=== PATIENT | male | born 1950 | race African-American/Black ===

== ENCOUNTER 2023-11-21 08:46 | Outpatient (OUT) | payer MEDICARE, MEDICAID, SELFPAY ==
--- NOTE | 2023-11-21 09:04 | XR_ITS ---
The [address] [address] Patient Name: DON SHULTZ MRN: [id number] date: 1950 Sex: M Assigned Patient Location: [facility] Current Patient Location: [facility] Accession/Order Number: [id number] Exam Date: 11/21/2023 10:20 Report Date: 11/21/2023 10:35 At the request of: ROSHAN NAVARRO Procedure: XR chest 2V EXAM: XR chest 2V HISTORY: Preop exam COMPARISON: None. TECHNIQUE: PA and lateral views of the chest. FINDINGS: The cardiomediastinal silhouette is enlarged. Interstitial opacity. There is no pneumothorax. No pleural effusion is noted. The osseous structures are intact. XR/XR chest 2V IMPRESSION: Cardiomegaly with congestion. Electronically authenticated by: ARTHUR ROMAN Date: 11/21/2023 10:35
[2023-11-21 09:27] LABS: Basophils Percent Auto 0.4 % (0.2-2.0); Eosinophils Absolute Auto 0.2 10^3/uL (0.0-0.7); Eosinophils Percent Auto 3.4 % (0.9-7.0); Hematocrit 38.8 % (42.0-54.0); Hemoglobin 12.8 g/dL (14.0-18.0); Immature Granulocytes Abs Auto 0.02 10^3/uL (0.00-0.03); Immature Granulocytes Pct Auto 0.3 % (0.0-0.5); Lymphocytes Absolute Auto 1.5 10^3/uL (1.2-3.8); Lymphocytes Percent Auto 21.7 % (20.5-60.0); Mean Corpuscular Hemoglobin 29.2 pg (25.9-34.0); Mean Corpuscular Volume 88.6 fL (80.0-94.0); Mean Platelet Volume 8.5 fL (9.5-13.5); Monocytes Absolute Auto 0.7 10^3/uL (0.3-0.8); Monocytes Percent Auto 9.9 % (1.7-12.0); Neutrophils Absolute Auto 4.3 10^3/uL (1.4-6.5); Neutrophils Percent Auto 64.3 % (43.0-75.0); Platelet Count 236 10^3/uL (150-450); Red Blood Count 4.38 10^6/uL (4.70-6.10); Red Cell Distribution Width 12.8 % (11.0-15.0); White Blood Count 6.7 10^3/uL (4.0-11.0)
[2023-11-21 09:42] LABS: Anion Gap 10.5; BUN Creatinine Ratio 10.4; Carbon Dioxide 28.7 mmol/L (21.0-32.0); Chloride 105 mmol/L (98-107); Estimated GFR (African America >60 (>=60); Estimated GFR (Non-African Ame 52 (>=60); Glucose 72 mg/dL (74-106); Potassium 4.2 mmol/L (3.5-5.1); Sodium 140 mmol/L (136-145)
[2023-11-21 09:46] LABS: Alanine Aminotransferase 33 U/L (16-63); Albumin Globulin Ratio 0.8; Albumin Level 3.1 g/dL (3.4-5.0); Alkaline Phosphatase 133 U/L (46-116); Aspartate Amino Transferase 26 U/L (15-37); Bilirubin Direct 0.1 mg/dL (0.0-0.2); Bilirubin Total 0.3 mg/dL (0.2-1.0); Total Protein 7.1 g/dL (6.4-8.2)
[2023-11-21 10:38] LABS: Partial Thromboplastin Time 25.9 sec (22.3-36.2); Prothrombin Time 10.6 sec (9.0-11.6)
== END 2023-11-21 08:47 | disposition home or self-care (01) ==
PROVIDERS: Visit Provider Urology
DX: Z01.810 Encounter for preprocedural cardiovascular examination (principal); Z01.812 Encounter for preprocedural laboratory examination; N40.0 Benign prostatic hyperplasia without lower urinary tract symptoms; I51.7 Cardiomegaly
CPT/HCPCS: 71046; 80048; 80076; 85025; 85610; 85730

== ENCOUNTER 2023-12-11 13:16 | Day surgery (SDC) | payer MEDICARE, MEDICAID, SELFPAY ==
[2023-11-21 09:53] VITALS: BP 131/87; PULSE 78; RESP 20; TEMP 36.3; O2SAT 97; BMI 32.3
[2023-12-11] VITALS (11 sets, daily range): BP systolic 123–165; BP diastolic 58–106; PULSE 72–97; RESP 12–100; TEMP 36.3–36.8; O2SAT 91–100; BMI 32.3
--- OUTSIDE RECORDS SUMMARY | 2023-12-11 13:25 | XMS_ITS | CCD ---
Author Name Unknown Address [address] [place] [address] Organization [facility] Care Team Providers Care Bull Driver Name Role Phone None, No PCP Unavailable Unavailable Unavailable Unavailable Isidro Greenfield(Historical) Unavailable Conchis Beckwith DO Unavailable Conchis Beckwith DO Primary Care Provider [facility]IS [facility]ECKWITH [facility] [phone] DO Rommel Mcgowan Emergency Provider [phone] Al Valerie Avila MD Hani Admit Provider MD Cristiano Fagan Other Provider SANJU Duran Other Provider [phone] MD Dimitry Tyler Attending Provider [phone] MD Tae Marc Emergency Provider [phone] DONTAE Harding- Vanita Zacarias Emergency Provider DO Conchis Beckwith Other Provider [phone] DO Slava Solomon Attending Provider DO Luiz Pandya Emergency Provider [phone] DO Wood Moeller Attending Provider [phone] DO Ken Brush Referring Provider DO Ken Brush Attending Provider DO Low Castellano [facility] SANJU Cuba (WND) Attending Provider DIRK Matute Emergency Provider [phone] Conchis Beckwith DO Unavailable Conchis Beckwith DO Primary Care Provider SHANNAN Alvarado Attending Provider MELLISA, EMAD W Admitting Unavailable MELLISA, EMAD W Attending Unavailable CONCHIS BECKWITH Primary Care Unavailable MELLISA, EMAD W Admitting Unavailable MELLISA, EMAD W Attending Unavailable CONCHIS BECKWITH Primary Care Unavailable KARISSA, SAMEH RIZKAL Attending Unavailable CONCHIS BECKWITH Primary Care Unavailable KARISSA, SAMEH RIZKAL Admitting Unavailable Isidro Greenfield(Historical) Unavailable [phone] Conchis Beckwith DO Unavailable Tang CURRY Conchis Primary Care Provider [facility] Primary Care Provider MD Tae Marc Emergency Provider Mehdi [facility] Vanita E Emergency Provider SANJU Hauser Attending Provider [phone] DO Rommel Mcgowan Emergency Provider [facility] Primary Care Provider SANJU Hauser Attending Provider Slava, DO Solomon Attending Provider [phone] DO Ken Brush Referring Provider Tang CURRY Conchis Unavailable [phone] Tang CURRY Conchis Primary Care Provider [facility] Primary Care Provider Mehdi [facility] Vanita E Emergency Provider [phone] DO Rommel Mcgowan Emergency Provider Mast, DO Solomon Attending Provider DO Ken Brush Referring Provider SHANNAN Alvarado Attending Provider SANJU Hauser (WND) Attending Provider [facility] Primary Care Provider [phone] MD Joselito Webb Attending Provider Isidro Greenfield(Historical) Unavailable Conchis Beckwith DO Unavailable Conchis Beckwith DO Primary Care Provider [facility] Primary Care Provider [phone] DO Rommel Mcgowan Emergency Provider [phone] WILLARD AGUIRRE Primary Care Physician [facility] Primary Care Provider [phone] MD Joselito Webb Attending Provider [phone] SANJU Hauser (WND) Attending Provider DO Gold Miller Attending Provider SHANNAN Feliciano Emergency Provider [phone] Merchant CHARLES [facility] Primary Care Provider [facility] Primary Care Provider MD Tae Salazar Attending Unavailable MD Tae Salazar Admitting Unavailable Tae Salazar Primary Care Unavailable [facility] Primary Care Provider DO Steven Mcmillan Attending Provider [phone] Conchis Beckwith DO Primary Care Provider [facility] YASIR Primary Care Unavailable Leroy MANCERA Attending Unavailable MERCHANT, YASIR Primary Care Unavailable Leroy MANCERA Attending Unavailable JOYCE GOMEZ Consulting UnavailCONCHIS Kaplan Primary Care Unavailable Leroy MANCERA Admitting Unavailable Leroy MANCERA Attending Unavailable MERCHANT, YASIR Primary Care Unavailable NENA DIAZ Referring Unavailable TANG CONCHIS Primary Care Unavailable SAVANA BARAJAS (OCEANOGRAPHIC METEOROLOGIST) Referring Unavailable Leroy MANCERA Attending Unavailable DO Rafael Broussard Emergency Provider [phone] MD Georgi Vargas Admit Provider [phone] MD Georgi Vargas Attending Provider MD Eryn Sands Attending Provider MD Alonso Pina Other Provider [phone] Dr. Sandeep Mendez Attending Unava ilable UNKNOWN, PCP Primary Care Unavailable BRENDA CHARLES Attending Unavailable ARACELIBRENDA Referring Unavailable MERCHANT, YASIR Primary Care Unavailable Leroy MANCERA Referring Unavailable MERCHANT, YASIR Primary Care Unavailable BRENDA CHARLES Attending Unavailable LOUDENSLAJOSE KIM Referring Unavaila ble TANG, CONCHIS Primary Care Unavailable LOUDENSLAGER, JOSE S Attending Unavaila ble MERCHANT, YASIR Primary Care Unavailable LOUDENSLAGER, JOSE S Attending Unavaila ble LEX, ANA LUISA Referring Unavailable MERCHANT, YASIR Primary Care Unavailable LEXRAPHAEL LUAEE Attending Unavailable ARACELI, BRENDA L Referring Unavailable MERCHANT, YASIR Primary Care Unavailable [facility] Primary Care Provider DO Rafael Broussard Emergency Provider MD Georgi Vargas Admit Provider MD Eryn Sands Attending Provider MD Alonso Pina Other Provider DO Conchis Beckwith Referring Provider [phone] DO Wood Moeller Attending Provider [facility] Primary Care Provider DO Low Castellano Emergency Provider Juneva DO Conchis Ramirez Attending Provider [phone] Daniel JURADO Referring Unavailable Daniel JURADO Attending Unavailable MERCHANT, WILLARD Primary Care Unavailable Luiz NAVARRO Attending Unavailable MERCHANT, WILLARD Primary Care Unavailable MERCHANT, WILLARD Primary Care Unavailable Luiz NAVARRO Admitting Unavailable Luiz NAVARRO Attending Unavailable Luiz NAVARRO Referring Unavailable RICEDaniel Referring Unavailable RICE, Daniel W Admitting Unavailable RICEDaniel W Attending Unavailable MERCHANT, WILLARD Primary Care Unavailable Sarmini, Issa Talal Admitting Unavaila ble Sarmini, Issa Telly Attending Unavaila ble Adánmini, Issa Telly Referring Unavaila ble , [facility] Primary Care Unavailable Daniel JURADO Referring Unavailable Daniel JURADO Attending Unavailable MERCHANT, [facility] Primary Care Unavailable Adánmini, Issa Taljulianne Attending Unavaila ble MERCHANT, [facility] Primary Care Unavailable MERCHANT, [facility] Primary Care Unavailable Adánanamariai, Issa Telly Attending Unavaila Luiz Wright Attending Unavailable MERCHANT, [facility] Primary Care Unavailable Luiz NAVARRO Attending Unavailable MERCHANT, [facility] Primary Care Unavailable DIRK MYERS Attending Unavailab le MERCLINDSEYT, [facility] Primary Care Unavailable Daniel JURADO Attending Unavailable MERCHANT, [facility] Primary Care Unavailable Gold Miller Admitting Unavailable Gold Miller Attending Unavailable [facility] Primary Care Unavaila ble Steven Mcmillan Admitting Unavailable Steven Mcmillan Attending Unavailable [facility] Primary Care Unavaila ble Eryn Sands Attending Unavailable Alonso Pina Consulting Unavailable Georgi Vargas Admitting Unavailable [facility] Primary Care Unavaila Conchis Nath Referring Unavailable [facility] Primary Care Unavaila ble Wood Moeller Admitting Unavailable Wood Moeller Attending Unavailable Conchis Beckwith Admitting Unavailable Conchis Beckwith Attending Unavailable [facility] Primary Care Unavaila ble Braulio Hauser (WND) Admitting Unavailable Braulio Hauser (WND) Attending Unavailable Joselito Webb Admitting Unavailabl e Joselito Webb Attending Unavailabl e [facility] Primary Care Unavaila ble Low Castellano Attending Unavailable [facility] Primary Care Unavaila Low Mercado Admitting Unavailable Solomon Palacio Admitting Unavailable Solomon Palacio Attending Unavailable NO FAMILY, PHYSICIAN Primary Care Unavailable [facility] Primary Care Unavaila ble Bailee Feliciano Admitting Unavailable Bailee Feliciano Attending Unavailable DO Solomon Palacio Emergency Provider [phone] NO FAMILY, PHYSICIAN Primary Care Provider Unava ilable Allergies Allergy Classification Reported Allergen(s) Allergy Type Date of Onset Reaction(s) Facility (1 source) No Known Medication Allergies; 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: [No Known Medication Allergies] Propensity to adverse reactions (disorder) [facility] Repository Medications Current Medications Medication Drug Class(es) Dates Sig (Normalized) Sig (Original) Albuterol (20 sources) beta2-Adrenergic Agonist Start: 01-02-2022 take 2 puff(s) by inhalation every six hours as needed for wheezing Albuterol (Eqv-ProAir HFA) 2 puff(s), Inhalation, q6hr as needed for wheezing, Refill(s) 0 Start Date: 01/02/22 Status: Ordered Start: 09-29-2021 Ventolin HFA 1 08 (90 Base) MCG/ACT Inhalation Aerosol Solution Quantity: 18 Refills: 0 Ordered: 29-Sep-2021 DO Start : 29-Sep-2021 Active Start: 02-19-2021 take 1 puff(s) by in halation every four hours Albuterol Sulfate Active 1 PUFF INHALATION Q4H February 18, 2021 11:00pm take 2 puff(s) by in halation every four hours as needed albuterol HFA (PROVENTIL HFA, VENTOLIN HFA) 90 mcg/actuation inhaler Inhale 2 Puffs as instructed every 4 hours as needed. 0 Active Comment on above: Inhale 2 Puffs as in structed every 4 hours as needed. amitriptyline hydrochloride 150 mg oral tablet (20 sources) Tricyclic Antidepressant Start: 02-20-20 take 150 mg by mouth once daily at bedtime Amitriptyline Active 150 MG PO Daily at bedtime February 18, 2021 11:00pm Start: 12-22-2019 End: 02-19-2021 take 150 mg by mouth once daily at bedtime Amitriptyline Discontinued 150 MG PO Daily at bedtime December 22, 2019 12:00am February 19, 2021 9:48am amitriptyline (E LAVIL) 100 mg tablet Take 150 mg by mouth. 0 Active Comment on above: Take 150 mg by mouth . aspirin 81 mg delayed release oral tablet (20 sources) Platelet Aggregation Inhibitor, Nonsteroidal Anti-inflammatory Drug Start: 02-16-2022 take 1 tablet by mouth once daily aspirin 81 mg Oral EC Tab 81 mg = 1 tab(s), Oral, Daily, Refills(s) 0, Prophylaxis Start Date: 02/16/22 Status: Ordered Start: 02-16-2022 take 1 tablet by rachelle th once daily aspirin 81 mg Oral EC Tab 81 mg = 1 tab(s), Oral, Daily, Refills(s) 0 Start Date: 02/16/22 Status: Ordered Start: 12-22-2019 End: 12-05-2023 take 81 mg by mouth once daily Aspirin Discontinued 81 MG PO Daily December 22, 2019 12:00am December 05, 2023 9:00pm Comment on above: Take 81 mg by mouth once daily. benoxinate hydrochloride 4 mg/ml / fluorescein sodium 2.5 mg/ml ophthalmic solution (2 sources) Diagnostic Dye Start: 03-17-2023 End: 03-18-2023 fluorescein-benoxi carly 0.25-0.4 % 1 Drop (FLURESS) Start: 03-15-2022 End: 03-16-2022 fluorescein-benoxinate 0.25- 0.4 % 1 Drop (FLURESS) dicyclomine hydrochloride 20 mg oral tablet (20 sources) Anticholinergic Start: 01-02-2022 take 1 tablet by mouth four times daily dicyclomine 20 mg Tab 20 mg = 1 tab(s), Oral, QID, Refills(s) 0, Spasm Start Date: 01/02/22 Status: Ordered Start: 12-22-2019 take 20 mg by mouth three times daily Dicyclomine Active 20 MG PO Three times daily December 22, 2019 12:00am Comment on above: 1 tablet fluticasone (20 sources) Corticosteroid Start: 01-02-2022 take 2 puff(s) by inhalation twice daily Flovent HFA 110 Inhaler 2 puff(s), Inhalation, BID, 12 gram, Refill(s) 0, Shortness of breath or wheezing Start Date: 01/02/22 Status: Ordered Start: 01-02-2022 take 2 puff(s) by in halation twice daily Flovent HFA 110 Inhaler 2 puff(s), Inhalation, BID, 12 gram, Refill(s) 0, Shortness of breath or wheezing Start Date: 01/02/22 Status: Ordered Start: 02-19-2021 take 1 puff(s) by in halation every twelve hours Fluticasone Propionate Active 1 PUFF INHALATION Q12H February 18, 2021 11:00pm Start: 02-19-2021 take 1 puff(s) by in halation every twelve hours Fluticasone Propionate Active 1 PUFF INHALATION Q12H February 19, 2021 12:00am Start: 01-25-2020 FLOVENT HFA 11 0 mcg/actuation inhaler twice daily. 0 01/25/2020 Active Start: 12-22-2019 End: 06-18-2020 take 1 dose by inhalation once daily Fluticasone Propionate Discontinued 1 DOSE INHALATION Daily December 22, 2019 12:00am June 18, 2020 1:06pm Comment on above: twice daily. hydroCHLOROthiazide 25 mg oral tablet (20 sources) Thiazide Diuretic Start: take 25 mg by mouth once daily Hydrochlorothiazide Active 25 MG PO Daily December 22, 2019 12:00am Comment on above: 1 tab ammonium lactate 120 mg/ml topical lotion (20 sources) Start: Ammonium Lactate Active 1 APPLIC TOPICAL Twice daily February 18, 2021 11:00pm Start: 02-11-2020 ammonium lacta te (LAC-HYDRIN) 12 % lotion Lantus 100 units/mL Injection-Insulin (1 source) Start: 01-02-2022 Lantus 100 units/mL Injection-Insulin 41 unit(s), SubCutaneous, Once a day (at bedtime), HOLD this medication if your glucose level is less than 200, Refills(s) 0, Blood glucose Start Date: 01/02/22 Status: Ordered losartan potassium 25 mg oral tablet (20 sources) Angiotensin 2 Receptor Moises Start: 01-17-2020 take 1 tablet by mouth twice daily losartan (COZAAR) 25 mg tablet Take 25 mg by mouth twice daily. 0 01/17/2020 Active Start: 12-22-2019 End: 12-05-2023 take 25 mg by mouth once daily Losartan Discontinued 2 5 MG PO Daily December 22, 2019 12:00am December 05, 2023 9:02pm Comment on above: Take 25 mg by mouth twice daily. metoprolol tartrate 100 mg oral tablet (20 sources) beta-Adrenergic Moises Start: 02-19-2021 take 125 mg by mouth once daily Metoprolol Tartrate Active 125 MG PO Daily February 18, 2021 11:00pm Start: 02-19-2021 take 100 mg by mouth once marita y Metoprolol Tartrate Active 100 MG PO Daily February 19, 2021 12:00am take 1 tablet by rachelle th twice daily metoprolol tartrate, short acting, (LOPRESSOR) 50 mg tablet Take 50 mg by mouth twice daily. 0 Active metoprolol tartr ate, short acting, (LOPRESSOR) 50 mg tablet Take 100 mg by mouth. 0 Active Comment on above: Take 100 mg by mouth . Take 50 mg by mouth twice daily. Neosalus topical cream (7 sources) Start: 01-02-2022 Neosalus topical cream 1 marc, Topical, BID for dry skin, 120 gram, Refill(s) 0 Start Date: 01/02/22 Status: Ordered Nitro 0.4 mg Tab (6 sources) Start: 01-02-2022 Nitro 0.4 mg Tab = 1 tab(s), SubLingual, q5min, PRN Chest pain, # 25 tab(s), Refills(s) 3 Start Date: 01/02/22 Status: Ordered nitroglycerin 0.4 mg/actuat mucosal spray (20 sources) Nitrate Vasodilator Start: 01-02-2022 Nitro 0.4 mg Tab = 1 tab(s), SubLingual, q5min, PRN Chest pain, # 25 tab(s), Refills(s) 3 Start Date: 01/02/22 Status: Ordered Start: 02-19-2021 End: 12-05-2023 Nitroglycerin Discontinued 0 .4 MG SUBLINGUAL EVERY 5-15 MINUTES February 18, 2021 11:00pm December 05, 2023 9:03pm Comment on above: Dissolve 0.4 mg unde r the tongue. NovoLOG 100 units/mL injectable solution (1 source) Start: 02-15-2022 NovoLOG 100 units/mL injectable solution 11 unit(s), SubCutaneous, TIDAC, Hold this medication until your glucose levels are 200 or higher, Refills(s) 0 Start Date: 02/15/22 Status: Ordered omeprazole 40 mg delayed release oral capsule (9 sources) Proton Pump Inhibitor Start: 09-09-2023 End: 05-31-2025 take 1 capsule by mouth once daily omeprazole 40 mg Cap-DR 40 mg = 1 cap(s), Oral, Daily, X 90 day(s), # 90 cap(s), Refills(s) 6, Pharmacy: [facility][id number], 198, cm, 09/09/23 14:16:00 EDT, Height/Length Dosing, 143.7, kg, 08/15/23 12:06:00 EDT, Weight Dosing Start Date: 09/09/23 Stop Date: 05/31/25 Status: Ordered Start: 08-15-2023 take 1 capsule by [facility] twice daily omeprazole 40 mg Cap-DR 40 mg = 1 cap(s), Oral, BID, # 180 cap(s), Refills(s) 3, Pharmacy: [facility][id number], 188, cm, 08/15/23 12:06:00 EDT, Height/Length Dosing, 143.7, kg, 08/15/23 12:06:00 EDT, Weight Dosing Start Date: 08/15/23 Status: Ordered Start: 01-10-2022 take 1 capsule by [facility] once daily omeprazole 40 mg Cap-DR 40 mg = 1 cap(s), Oral, Daily, # 30 cap(s), Refills(s) 2, Pharmacy: [facility]/pharmacy #[id number], 198, cm, 01/10/22 14:08:00 EST, Height/Length Dosing, 144, kg, 01/10/22 14:08:00 EST, Weight Dosing Start Date: 01/10/22 Status: Ordered Start: 01-09-2021 Omeprazole 40 MG Oral Capsule Delayed Release TAKE 1 CAPSULE BY MOUTH 30 minutes before morning meal Quantity: 25 Refills: 0 Ordered: 09-Jan-2021 DO Start : 09-Jan-2021 Active omeprazole 40 mg Cap-DR (1 source) Start: 01-10-2022 take 1 capsule by mouth once daily omeprazole 40 mg Cap-DR 40 mg = 1 cap(s), Oral, Daily, # 30 cap(s), Refills(s) 2, Pharmacy: [facility]/pharmacy #[id number], 198, cm, 01/10/22 14:08:00 EST, Height/Length Dosing, 144, kg, 01/10/22 14:08:00 EST, Weight Dosing Start Date: 01/10/22 Status: Ordered oseltamivir 75 mg oral capsule (1 source) Neuraminidase Inhibitor Start: 12-05-2023 take 1 capsule by mouth every twelve hours Oseltamivir (Tamiflu) 75 mg capsule Active 75 MG PO Q12H 10 5 December 05, 2023 12:00am phenylephrine hydrochloride 25 mg/ml ophthalmic solution (1 source) alpha-1 Adrenergic Agonist Start: 03-17-2023 End: 03-18-2023 PHENYLephrine 2.5 % 1 Drop (AK-DILATE, JOHNNIE-SYNEPHRINE) proparacaine hydrochloride 5 mg/ml ophthalmic solution (1 source) Local Anesthetic Start: 03-17-2023 End: 03-18-2023 proparacaine 0.5 % 1 Drop (ALCAINE) sulfamethoxazole 800 mg / trimethoprim 160 mg oral tablet (20 sources) Dihydrofolate Reductase Inhibitor Antibacterial, Sulfonamide Antimicrobial Start: 10-10-2023 End: 10-20-2023 take 1 tablet by mouth once sulfamethoxazole-t rimethoprim (BACTRIM DS) 800-160 mg per tablet Take 1 tablet by mouth. 0 10/10/2023 10/20/2023 Active Start: 10-03-2021 End: 10-29-2021 take 1 tablet by mouth twice daily Sulfamethoxazole-Trimethoprim (Bactrim D s) 800-160 mg tablet Discontinued 1 TAB PO Twice daily 14 October 02, 2021 11:00pm October 29, 2021 10:19am Comment on above: Take 1 tablet by rachelle th. terazosin 10 mg oral capsule (20 sources) alpha-Adrenergic Moises Start: 01-02-2022 take 2 capsules by mouth once daily at bedtime terazosin 10 mg Cap 20 mg = 2 cap(s), Oral, Once a day (at bedtime), Refills(s) 0, Other (see comment) Start Date: 01/02/22 Status: Ordered Start: 08-25-2021 take 2 capsules by m outh once daily Terazosin HCl - 10 MG Oral Capsule TAKE 2 CAPSULES DAILY. Quantity: 0 Refills: 0 Ordered: 25-Aug-2021 DO Start : 25-Aug-2021 Active Start: 01-17-2020 take 2 capsules by m outh once daily at bedtime terazosin (HYTRIN) 5 mg capsule Take 10 mg by mouth daily at bedtime. 0 01/17/2020 Active Start: 12-22-2019 take 10 mg by mouth three times daily Terazosin Active 10 MG PO Three times daily December 22, 2019 12:00am Start: 12-22-2019 take 20 mg by mouth once daily at bedtime Terazosin Active 20 MG PO Daily at bedtime December 22, 2019 1:00am Comment on above: Take 10 mg by mouth daily at bedtime. tropicamide 10 mg/ml ophthalmic solution (1 source) Anticholinergic Start: 03-17-2023 End: 03-18-2023 tropicamide 1 % 1 Drop (MYDRIACYL) Completed/Discontinued Medications Medication Drug Class(es) Dates Sig (Normalized) Sig (Original) acetaminophen 325 mg / HYDROcodone bitartrate 5 mg oral tablet (19 sources) Opioid Agonist Start: 08-15-2022 End: 07-30-2023 take 1 tablet by mouth every six hours Hydrocodone-Acetami nophen Discontinued 1 TAB PO Q6H 12 August 15, 2022 July 30, 2023 7:21pm Start: 02-21-2021 HYDROcodone-Ac etaminophen 5-325 MG Oral Tablet Quantity: 20 Refills: 0 Ordered: 21-Feb-2021 DO Start : 21-Feb-2021 Active acetaminophen 325 mg / oxyCODONE hydrochloride 5 mg oral tablet (20 sources) Opioid Agonist Start: 06-01-2022 End: 07-10-2022 take 1 tablet by mouth every six hours Oxycodone-Acetaminophen Discontinued 1 TAB PO Q6H 10 3 June 01, 2022 July 10, 2022 1:39pm Start: 05-20-2022 End: 06-01-2022 take 1 tablet by mouth twice daily Oxycodone-Acetaminophen Discontinued 1 T AB PO Twice daily 14 May 20, 2022 June 01, 2022 9:14am Start: 06-25-2020 End: 08-31-2020 take 1 tablet by mouth every four to six hours Oxycodone-Acetaminophen (Percocet) 5-325 mg tablet Discontinued 1 TAB PO EVERY 4-6 HOURS 14 June 25, 2020 August 31, 2020 9:07am amLODIPine 10 mg oral tablet (20 sources) Dihydropyridine Calcium Channel Moises Start: 11-15-2019 End: 12-05-2023 take 1 tablet by mouth once daily Amlodipine (Norvasc) 10 mg Tablet Discontinued 10 MG PO Daily November 15, 2019 12:00am December 05, 2023 9:00pm Comment on above: Take 10 mg by mouth. amoxicillin 875 mg / clavulanate 125 mg oral tablet (20 sources) Penicillin-class Antibacterial Start: 05-20-2022 End: 07-25-2022 take 1 tablet by mouth twice daily Amoxicillin-Pot Clavulanate Discontinued 1 TAB PO Twice daily 19 09May 29, 2022 11:00pm July 25, 2022 9:16am Start: 01-02-2022 amoxicillin-cl avulanic acid (AUGMENTIN) 875-125 mg per tablet Take by mouth. 0 01/02/2022 Active Start: 01-29-2021 End: 02-15-2021 take 1 tablet by mouth twice daily Amoxicillin-Pot Clavulanate (Augmentin) 500-125 mg tablet Discontinued 1 TAB PO Twice daily 19 09January 29, 2021 12:00am February 15, 2021 10:35am Start: 12-06-2020 End: 01-01-2021 take 1 tablet by mouth twice daily Amoxicillin-Pot Clavulanate (Augmentin) 875-125 mg tablet Discontinued 1 TAB PO Twice daily December 06, 2020 12:00am January 01, 2021 11:56am Comment on above: Take by mouth. atorvastatin 40 mg oral tablet (20 sources) HMG-CoA Reductase Inhibitor Start: 11-11-20 End: 12-05-19 take 40 mg by mouth once daily Atorvastatin Discontinued 40 MG PO Daily November 11, 2021 12:00am December 05, 2023 9:00pm Comment on above: Take 40 mg by mouth once daily. azithromycin 250 mg oral tablet (19 sources) Macrolide Antimicrobial Start: 10-11-20 End: 12-28-19 Azithromycin (Zithromax Z-Kiran) 250 mg tablet Discontinued 250 MG PO as directed on dose pack October 11, 2020 12:00am December 28, 2020 9:25am take 2 tablets (500 mg) today (day 1), then 1 tablet (250 mg) for 4 days (days 2-5) cefdinir 300 mg oral capsule (19 sources) Cephalosporin Antibacterial Start: 03-21-20 End: 06-18-20 take 300 mg by mouth every twelve hours Cefdinir Discontinued 300 MG PO Q12H 19 09March 20, 2020 11:00pm June 18, 2020 1:06pm cephalexin 500 mg oral capsule (20 sources) Cephalosporin Antibacterial Start: 01-13-20 take 1 tablet by mouth every twelve hours Keflex 500 mg Cap 500 mg = 1 cap(s), Oral, Daily, Take 1 tablet day before procedure, and then 1 tablet 12 hrs later, # 2 cap(s), Refills(s) 0, Pharmacy: [facility]/pharmacy #[id number], 198, cm, 01/13/23 13:03:00 EST, Height/Length Dosing, 144, kg, 01/13/23 13:03:00 EST, Weight Do... Start Date: 01/13/23 Status: Ordered Start: 06-01-2022 End: 07-10-2022 take 500 mg by mouth twice daily Cephalexin Discontinued 500 MG PO Twice daily 14 May 31, 2022 11:00pm July 10, 2022 1:38pm Start: 11-19-2021 End: 11-22-2021 take 500 mg by mouth every six hours Cephalexin Discontinued 500 MG PO Q6H 28 November 19, 2021 12:00am November 22, 2021 9:01am Start: 10-03-2021 End: 10-29-2021 take 500 mg by mouth every six hours Cephalexin Discontinued 500 MG PO Q6H 28 October 02, 2021 11:00pm October 29, 2021 10:19am Start: 06-14-2021 End: 08-16-2021 take 1000 mg by mouth twice daily Cephalexin Discontinued 1000 MG PO Twice daily 19 04June 13, 2021 11:00pm August 16, 2021 8:18am Start: 02-25-2021 End: 05-17-2021 take 500 mg by mouth twice daily Cephalexin Discontinued 500 MG PO Twice daily 13 06February 24, 2021 11:00pm May 17, 2021 9:03am Start: 06-21-2020 End: 08-31-2020 take 500 mg by mouth every twelve hours Cephalexin Discontinued 500 MG PO Every 12 hours 14 June 20, 2020 11:00pm August 31, 2020 9:08am Start: 03-07-2020 End: 03-21-2020 take 1 capsule by mouth twice daily Cephalexin (Keflex) 500 mg capsule Discontinued 500 MG PO Twice daily 14 March 06, 2020 11:00pm March 21, 2020 1:39pm Comment on above: TAKE 1 CAPSULE BY [facility] EVERY 6 HOURS for 7 (SEVEN) days ciprofloxacin 100 mg oral tablet (19 sources) Quinolone Antimicrobial Start: End: take 500 mg by mouth twice daily Ciprofloxacin Hcl Discontinued 500 MG PO Twice daily 20 June 21, 2022 11:00pm July 10, 2022 1:38pm clindamycin 300 mg oral capsule (18 sources) Lincosamide Antibacterial Start: End: take 300 mg by mouth three times daily Clindamycin Hcl Discontinued 300 MG PO Three times daily 42 August 10, 2022 11:00pm August 29, 2022 8:53am cyclobenzaprine hydrochloride 10 mg oral tablet (20 sources) Muscle Relaxant Start: 023 End: take 10 mg by mouth once daily Cyclobenzaprine Discontinued 10 MG PO Daily July 30, 2023 11:00pm December 05, 2023 9:00pm Start: 03-24-2023 take 1 tablet by [facility] every eight hours as needed cyclobenzaprine (FLEXERIL) 10 mg tablet Take 1 tablet by mouth three times daily as needed. 30 tablet 1 03/24/2023 Active Start: 06-01-2022 End: 08-11-2022 take 5 mg by mouth twice daily Cyclobenzaprine Discontinued 5 MG PO Twice daily May 31, 2022 11:00pm August 11, 2022 9:02am Comment on above: Take 1 tablet by [facility] three times daily as needed. dexamethasone 0.001 mg/mg / neomycin 0.0035 mg/mg / polymyxin b 10 unt/mg ophthalmic ointment (20 sources) Aminoglycoside Antibacterial, Polymyxin-class Antibacterial, Corticosteroid Start: 05-09-2023 End: 10-17-2023 neomycin/polymyxin b/dexametha(MAXITROL 3.5 MG/G-10,000 UNIT/G-0.1 % EYE OINTMENT) Use 1 application in the right eye twice daily. right socket only four times a day for a week then twice daily x 1 week, then stop. 3.5 g 3 05/09/2023 10/17/2023 Discontinued (Clinical Decision) Start: 12-11-2021 neomycin/polym yxin b/dexametha(MAXITROL 3.5 MG/G-10,000 UNIT/G-0.1 % EYE OINTMENT) right socket only four times a day for a week then twice daily x 1 week, then stop. 7 g 0 12/11/2021 Active Comment on above: right socket only fo ur times a day for a week then twice daily x 1 week, then stop. Use 1 application in the right eye twice daily. right socket only four times a day for a week then twice daily x 1 week, then stop. diclofenac sodium 75 mg delayed release oral tablet (19 sources) Nonsteroidal Anti-inflammatory Drug Start: 0 End: 1 take 75 mg by mouth twice daily Diclofenac Sodium Discontinued 75 MG PO Twice daily March 08, 2020 11:00pm February 19, 2021 9:48am docusate sodium 100 mg oral capsule (20 sources) Start: 3 take 1 capsule by mouth every twelve hours docusate sodium (COLACE) 100 mg capsule Take 1 capsule by mouth every 12 hours 6am/6pm. 0 04/30/2023 Active Start: 02-19-2021 End: 12-05-2023 take 1 capsule by mouth once daily Docusate Sodium (Colace) 100 mg Capsule Discontinued 100 MG PO Daily February 18, 2021 11:00pm December 05, 2023 9:01pm Comment on above: 1 capsule as needed Take 1 capsule by mo [facility] every 12 hours 6am/6pm. donepezil hydrochloride 10 mg oral tablet (20 sources) Start: 08-11-2022 End: 12-05-2023 take 10 mg by mouth once daily Donepezil Discontinued 10 MG PO Daily August 10, 2022 11:00pm December 05, 2023 9:01pm Start: 08-11-2022 Donepezil Acti ve MG TABLET August 11, 2022 12:00am Comment on above: TAKE 1 TABLET BY RACHELLE AT BEDTIME EVERY DAY doxycycline hyclate 100 mg oral capsule (20 sources) Tetracycline-clas s Drug Start: 08-29-2022 End: 09-26-2022 take 100 mg by mouth twice daily Doxycycline Hyclate Discontinued 100 MG PO Twice daily 20 August 28, 2022 11:00pm September 26, 2022 10:25am Start: 06-19-2022 End: 07-10-2022 take 100 mg by mouth twice daily Doxycycline Hyclate Discontinued 100 MG PO Twice daily 14 June 18, 2022 11:00pm July 10, 2022 1:38pm Start: 01-01-2021 End: 01-18-2021 take 100 mg by mouth twice daily Doxycycline Hyclate Discontinued 100 MG PO Twice daily 20 January 01, 2021 12:00am January 18, 2021 11:11am Start: 06-25-2020 End: 08-31-2020 take 100 mg by mouth twice daily Doxycycline Hyclate Discontinued 100 MG PO Twice daily 20 June 24, 2020 11:00pm August 31, 2020 9:08am Start: 03-09-2020 End: 06-18-2020 take 100 mg by mouth twice daily Doxycycline Hyclate Discontinued 100 MG PO Twice daily 20 March 08, 2020 11:00pm June 18, 2020 1:06pm dutasteride 0.5 mg oral capsule (20 sources) 5-alpha Reductase Inhibitor Start: 02-19-2021 End: 07-31-2023 take 0.5 mg by mouth once daily Dutasteride Discontinued 0.5 MG PO Daily February 18, 2021 11:00pm July 31, 2023 9:55am Comment on above: 1 capsule enalapril maleate 20 mg oral tablet (20 sources) Angiotensin Converting Enzyme Inhibitor enalapril (VASOTEC) 20 mg tablet Take 20 mg by mouth. 0 Active Comment on above: Take 20 mg by mouth. erythromycin 0.005 mg/mg ophthalmic ointment (20 sources) Macrolide, Macrolide Antimicrobial Start: 10-17-2023 erythromycin (ROMYCIN) 5 mg/gram (0.5 %) ophthalmic ointment Use 1 application in the right eye once daily. 3.5 g 12 10/17/2023 Active Start: 07-31-2023 End: 12-05-2023 Erythromycin Discontinued 1 APPLIC EYE-RIGHT Twice daily July 30, 2023 11:00pm December 05, 2023 9:01pm Start: 07-30-2023 End: 07-31-2023 Erythromycin Discontinued Au yony th, 2023 11:00pm July 30, 2023 11:21pm Start: 10-08-2021 erythromycin ( ROMYCIN) 5 mg/gram (0.5 %) ophthalmic ointment Use 1 application in the right eye twice daily. 1 g 11 10/08/2021 Active Comment on above: Use 1 application in the right eye twice daily. Use 1 application in the right eye once daily. finasteride 5 mg oral tablet (8 sources) 5-alpha Reductase Inhibitor Start: 3 End: 4 take 5 mg by mouth once daily Finasteride Discontinued 5 MG PO Daily July 30, 2023 11:00pm December 05, 2023 9:01pm gabapentin 300 mg oral capsule (20 sources) Anti-epileptic Agent Start: 1 take 3 capsules by mouth three times daily Gabapentin 300 MG Oral Capsule TAKE 3 CAPSULES BY MOUTH THREE TIMES DAILY Quantity: 270 Refills: 0 Ordered: 11-May-2021 DO Start : 27-Feb-2021 Active Start: 03-21-2020 End: 08-11-2022 take 900 mg by mouth three times daily Gabapentin Discontinued 900 MG PO Three times daily March 20, 2020 11:00pm August 11, 2022 9:02am Start: 12-22-2019 End: 03-21-2020 take 200 mg by mouth three times daily Gabapentin Discontinued 200 MG PO Three times daily December 22, 2019 12:00am March 21, 2020 1:41pm hydrOXYzine pamoate 50 mg oral capsule (20 sources) Antihistamine Start: 07-30-2023 End: 07-31-2023 Hydroxyzine Pamoate Discontinued MG July 29, 2023 11:00pm July 30, 2023 11:14pm Start: 01-17-2020 hydrOXYzine pa moate (VISTARIL) 50 mg capsule TAKE 1 CAPSULE EVERY 8 HOURS 0 01/17/2020 Active Start: 11-15-2019 End: 12-05-2023 take 1 capsule by mouth three times daily Hydroxyzine Pamoate (Vistaril) 50 mg Capsule Discontinued 50 MG PO Three times daily November 15, 2019 12:00am December 05, 2023 9:01pm Comment on above: TAKE 1 CAPSULE EVERY 8 HOURS insulin aspart, human 100 unt/ml injectable solution (20 sources) Insulin Analog Start: 02-16-20 inject 11 [IU] by subcutaneous injection three times daily before mealtime insulin aspart U-100 (NOVOLOG) 100 unit/mL Inject 11 Units subcutaneously three times daily before meals. 0 02/15/2022 Active Start: 02-15-2022 NovoLOG 100 un its/mL injectable solution 11 unit(s), SubCutaneous, TIDAC, Hold this medication until your glucose levels are 200 or higher, Refills(s) 0 Start Date: 02/15/22 Status: Ordered Comment on above: Inject subcutaneousl y. Inject 11 Units subc utaneously three times daily before meals. insulin glargine 100 unt/ml injectable solution (20 sources) Insulin Analog Start: inject 40 [IU] by subcutaneous injection once daily at bedtime insulin glargine (LANTUS) 100 unit/mL injection Inject 40 Units subcutaneously daily at bedtime. 0 01/02/2022 Active Start: 01-02-2022 Lantus 100 uni ts/mL Injection-Insulin 41 unit(s), SubCutaneous, Once a day (at bedtime), HOLD this medication if your glucose level is less than 200, Refills(s) 0, Blood glucose Start Date: 01/02/22 Status: Ordered Start: 10-06-2021 Lantus 100 UNI T/ML Subcutaneous Solution Quantity: 20 Refills: 0 Ordered: 06-Oct-2021 DO Start : 06-Oct-2021 Active Comment on above: Inject subcutaneously. Inject 40 Units subc utaneously daily at bedtime. Insulin Glargine (Lantus U-100 Insulin) 100 unit/mL solution (19 sources) Start: 02-20-20 End: 12-05-19 24 inject 45 [IU] by subcutaneous injection once daily at bedtime Insulin Glargine (Lantus U-100 Insulin) 100 unit/mL solution Discontinued 45 UNIT SUBCUT Daily at bedtime February 18, 2021 11:00pm December 05, 2023 9:05pm Start: 02-19-2021 inject 45 [IU] by lara bcutaneous injection once daily at bedtime Insulin Glargine (Lantus U-100 Insulin) 100 unit/mL solution Active 45 UNIT SUBCUT Daily at bedtime February 18, 2021 11:00pm Start: 02-19-2021 inject 45 [IU] by lara bcutaneous injection once daily at bedtime Insulin Glargine (Lantus U-100 Insulin) 100 unit/mL solution Active 45 UNIT SUBCUT Daily at bedtime February 19, 2021 12:00am insulin lispro 100 unt/ml injectable solution (14 sources) Insulin Analog Start: 05-31-2023 HUMALOG U-100 INSULIN 100 unit/mL injection Start: 02-19-2021 inject 11 [IU] by lara bcutaneous injection at bedtime Insulin Lispro (Humalog U-100 Insulin) 100 unit/mL solution Active 11 UNIT SUBCUT Before meals and at bedtime February 18, 2021 11:00pm Start: 01-22-2021 HumaLOG 100 UN IT/ML Subcutaneous Solution Quantity: 20 Refills: 0 Ordered: 22-Jan-2021 DO Start : 22-Jan-2021 Active Insulin Lispro (Humalog U-100 Insulin) 100 unit/mL solution (10 sources) Start: 02-19-2021 End: 12-05-2023 inject 11 [IU] by subcutaneous injection at bedtime Insulin Lispro (Humalog U-100 Insulin) 100 unit/mL solution Discontinued 11 UNIT SUBCUT Before meals and at bedtime February 18, 2021 11:00pm December 05, 2023 9:05pm Start: 02-19-2021 inject 11 [IU] by lara bcutaneous injection at bedtime Insulin Lispro (Humalog U-100 Insulin) 100 unit/mL solution Active 11 UNIT SUBCUT Before meals and at bedtime February 18, 2021 11:00pm Start: 02-19-2021 inject 11 [IU] by lara bcutaneous injection at bedtime Insulin Lispro (Humalog U-100 Insulin) 100 unit/mL solution Active 11 UNIT SUBCUT Before meals and at bedtime February 19, 2021 12:00am insulin, regular, human 100 unt/ml injectable solution (20 sources) Insulin Start: 01-07-2020 insulin regula r human (NOVOLIN R,HUMULIN R) 100 unit/mL injection 45 units 0 01/07/2020 Active Start: 12-22-2019 End: 02-19-2021 inject 45 [IU] by subcutaneous injection twice daily Insulin Regular Human Discontinued 45 UNIT SUBCUT Twice daily December 22, 2019 1:00pm February 19, 2021 9:47am Start: 11-15-2019 End: 12-22-2019 inject 45 [IU] by subcutaneous injection once daily Insulin Regular Human Discontinued 45 UNIT SUBCUT Daily November 15, 2019 12:00am December 22, 2019 1:00pm Comment on above: 45 units ipratropium bromide 0.021 mg/actuat metered dose nasal spray (20 sources) Anticholinergic Start: 07-30-2023 End: 12-05-2023 Ipratropium [place] Discontinued 21 MCG INTRANASAL Three times daily July 29, 2023 11:00pm December 05, 2023 9:02pm Instill two sprays into each nare TID Start: 07-30-2023 Ipratropium Br omide Active INTRANASAL July 30, 2023 12:00am Start: 03-23-2022 Ipratropium Br omide (ATROVENT) 21 mcg (0.03 %) nasal spray ketorolac tromethamine 5 mg/ml ophthalmic solution (3 sources) Nonsteroidal Anti-inflammatory Drug, Cyclooxygenase Inhibitor Start: 03-05-2022 End: 03-15-2022 take 1 drop(s) into the eye(s) four times daily keTORolac (ACULAR) 0.5 % ophthalmic solution Use 1 Drop in the left eye four times daily. USE DIRECTED BY PHYSICIAN, IN OPERATIVE EYE, BEGINNING ONE DAY AFTER SURGERY 5 mL 0 03/05/2022 03/15/2022 Discontinued (Course of therapy completed) Start: 02-19-2022 End: 03-05-2022 keTORolac (ACULAR) 0.5 % oph thalmic solution USE DIRECTED BY PHYSICIAN, IN OPERATIVE EYE, BEGINNING ONE DAY AFTER SURGERY 5 mL 0 02/19/2022 03/05/2022 Discontinued Comment on above: Use 1 Drop in the le ft eye four times daily. USE DIRECTED BY PHYSICIAN, IN OPERATIVE EYE, BEGINNING ONE DAY AFTER SURGERY USE DIRECTED BY Yajaira ADAME, IN OPERATIVE EYE, BEGINNING ONE DAY AFTER SURGERY lisinopril 40 mg oral tablet (9 sources) Angiotensin Converting Enzyme Inhibitor Start: 3 End: 3 take 40 mg by mouth once daily Lisinopril Discontinued 40 MG PO Daily July 29, 2023 11:00pm August 01, 2023 6:12am Lisinopril, Bulk, 100 % powd (13 sources) End: Lisinopril, Bulk, 100 % powd Take 10 mg by mouth. 0 03/21/2023 Discontinued Lisinopril, Bulk , 100 % powd Take 10 mg by mouth. 0 Active Comment on above: Take 10 mg by mouth. meloxicam 15 mg oral tablet (20 sources) Nonsteroidal Anti-inflammatory Drug Start: 08-11-2022 Meloxicam Active MG TABLET August 11, 2022 12:00am Start: 02-19-2021 End: 07-30-2023 take 15 mg by mouth once daily Meloxicam Discontinued 15 MG PO Daily August 10, 2022 11:00pm July 30, 2023 7:22pm Comment on above: 1 tablet miconazole nitrate 20 mg/ml topical cream (19 sources) Azole Antifungal Start: 06-09-20 End: 12-05-19 Miconazole Nitrate Discontinued 1 APPLIC TOPICAL Twice daily 30 June 08, 2022 11:00pm December 05, 2023 9:03pm naproxen 500 mg oral tablet (1 source) Nonsteroidal Anti-inflammatory Drug Start: 01-24-20 take 1 tablet by mouth twice daily at mealtime naproxen (NAPROSYN) 500 mg tablet TAKE 1 TABLET BY MOUTH TWICE DAILY WITH FOOD OR MILK FOR 10 DAYS 0 01/24/2023 Active Comment on above: TAKE 1 TABLET BY RACHELLE TH TWICE DAILY WITH FOOD OR MILK FOR 10 DAYS oxybutynin chloride 5 mg oral tablet (8 sources) Cholinergic Muscarinic Antagonist Start: 01-08-20 take 1 tablet by mouth twice daily oxybutynin (DITROPAN) 5 mg tablet Take 5 mg by mouth twice daily. 0 01/08/2023 Active Comment on above: Take 5 mg by mouth t wice daily. oxyCODONE hydrochloride 5 mg oral tablet (20 sources) Opioid Agonist Start: 06-11-20 oxyCODONE IR (ROXICODONE) 5 mg immediate release tablet Start: 06-23-2020 End: 08-31-2020 take 5 mg by mouth every eight hours Oxycodone Discontinued 5 MG PO Every 8 hours 15 June 23, 2020 August 31, 2020 9:09am Start: 03-09-2020 End: 06-23-2020 take 5 mg by mouth three times daily Oxycodone Discontinued 5 MG PO Three times daily 8 3 March 09, 2020 June 23, 2020 11:40am pantoprazole 40 mg delayed release oral tablet (20 sources) Proton Pump Inhibitor Start: 01-01-2023 End: 12-05-2023 take 40 mg by mouth twice daily Pantoprazole Discontinued 40 MG PO Twice daily 60 January 01, 2023 12:00am December 05, 2023 9:03pm Start: 09-29-2021 End: 01-01-2023 take 20 mg by mouth once daily Pantoprazole Discontinu ed 20 MG PO Daily May 18, 2022 11:00pm January 01, 2023 1:03pm Comment on above: Take 1 tablet by rachelle th. pravastatin sodium 40 mg oral tablet (20 sources) HMG-CoA Reductase Inhibitor Start: 07-30-2023 End: 08-01-2023 take 40 mg by mouth once daily Pravastatin Discontinued 40 MG PO Daily July 29, 2023 11:00pm August 01, 2023 6:13am Start: 12-22-2019 End: 11-11-2021 take 40 mg by mouth once daily Pravastatin Discontinue d 40 MG PO Daily December 22, 2019 12:00am November 11, 2021 1:03pm Comment on above: 1 tablet Once a day Orally 90 days prednisoLONE acetate 10 mg/ml ophthalmic suspension (3 sources) Corticosteroid Start: 03-05-2022 End: 03-15-2022 prednisoLONE acetate (PRED FORTE, ECONOPRED PLUS) 1 % ophthalmic suspension Use 1 Drop in the left eye four times daily. USE DIRECTED BY PHYSICIAN, IN OPERATIVE EYE, BEGINNING ONE DAY AFTER SURGERY 5 mL 0 03/05/2022 03/15/2022 Discontinued (Course of therapy completed) Start: 02-19-2022 End: 03-05-2022 prednisoLONE acetate (PRED F ORTE, ECONOPRED PLUS) 1 % ophthalmic suspension USE DIRECTED BY PHYSICIAN, IN OPERATIVE EYE, BEGINNING ONE DAY AFTER SURGERY 5 mL 0 02/19/2022 03/05/2022 Discontinued Comment on above: Use 1 Drop in the le ft eye four times daily. USE DIRECTED BY PHYSICIAN, IN OPERATIVE EYE, BEGINNING ONE DAY AFTER SURGERY USE DIRECTED BY Yajaira ADAME, IN OPERATIVE EYE, BEGINNING ONE DAY AFTER SURGERY tiZANidine 4 mg oral tablet (17 sources) Central alpha-2 Adrenergic Agonist Start: 02-11-2023 take 1 tablet by mouth once daily at bedtime tiZANidine (ZANAFLEX) 4 mg tablet TAKE ONE-HALF TO ONE TABLET BY MOUTH AT BEDTIME EVERY DAY 0 02/11/2023 Active Start: 01-02-2022 End: 05-22-2022 take 1 tablet by mouth every eight hours as needed for muscle spasms tiZANidine 4 mg Tab 4 mg = 1 tab(s), Oral, q8hr, PRN Spasm, Refills(s) 0 Start Date: 01/02/22 Status: Ordered Comment on above: TAKE 1 TABLET BY RACHELLE TH EVERY 8 HOURS NEEDED TAKE ONE-HALF TO ONE TABLET BY MOUTH AT BEDTIME EVERY DAY traMADol hydrochloride 50 mg oral tablet (20 sources) Opioid Agonist Start: 02-15-2022 take 2 tablets by mouth once daily as needed for pain traMADOL 50 mg Tab 100 mg = 2 tab(s), Oral, Daily, PRN for pain, Refills(s) 0 Start Date: 02/15/22 Status: Ordered Start: 11-08-2021 End: 08-11-2022 take 100 mg by mouth three times daily Tramadol Discontinued 100 MG PO Three times daily November 08, 2021 12:00am August 11, 2022 12:17pm Start: 10-08-2021 End: 12-05-2023 take 50 mg by mouth every eight hours Tramadol Discontinued 50 MG PO Q8H 9 3 September 04, 2022 11:00pm December 05, 2023 9:03pm Start: 10-08-2021 traMADol (ULTR AM) 50 mg tablet Take by mouth. 0 10/08/2021 Active Comment on above: Take by mouth. Take 1 tablet by rachelle th. Problems Active Problems Problem Classification Problem Date Documented Date Episodic/Chronic Abdominal pain (20 sources) Abdominal pain; 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: [Unspecified abdominal pain] 05-20-2022 Episodic Acquired foot deformities (19 sources) Acquired hallux malleus; 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: [Other hammer toe(s) (acquired), right foot] 08-16-2021 Chronic Aortic; peripheral; and visceral artery aneurysms (19 sources) Aneurysm of ascending aorta; 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: [Thoracic aortic aneurysm, without rupture] 11-08-2021 Chronic Asthma (20 sources) Uncomplicated moderate persistent asthma; 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: [Moderate persistent asthma, uncomplicated] Onset: 3 02-16-2020 Chronic Cardiac dysrhythmias (2 sources) Ventricular premature beats; 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: [Other premature beats] Chronic Cataract (20 sources) Senile combined form cataract of left eye; 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: [Combined forms of age-related cataract, left eye] Onset: 0 02-16-2020 Chronic Chronic kidney disease (20 sources) Chronic kidney disease stage 3; 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: [Stage 3 chronic kidney disease] 11-08-2021 Chronic Chronic kidney disease (1 source) Chronic kidney disease; 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: [Chronic kidney disease, stage 3 unspecified] Onset: 3 Chronic ulcer of skin (20 sources) Ulcer of big toe; 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: [Non-pressure chronic ulcer of other part of right foot with fat layer exposed] 12-28-2020 Chronic Diabetes mellitus with complications (20 sources) Chronic ulcer of foot; 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: [Type 2 diabetes mellitus with foot ulcer] Onset: 3 05-30-2022 Chronic Diabetes mellitus without complication (20 sources) Diabetes mellitus; 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: [Diabetes mellitus without mention of complication, type II or unspecified type, not stated as uncontrolled] Onset: 0 02-16-2020 Chronic Diabetes mellitus without complication (19 sources) Hyperglycemia; 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: [Hyperglycemia, unspecified] 11-15-2019 Episodic Disorders of lipid metabolism (20 sources) Hyperlipidemia; 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: [Other and unspecified hyperlipidemia] Onset: 2 01-10-2022 Chronic E Codes: Fall (19 sources) Fall; 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: [Unspecified fall, initial encounter] 03-09-2020 Episodic Esophageal disorders (20 sources) Gastroesophageal reflux disease; 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: [Gastro-esophageal reflux disease without esophagitis] Onset: 2 01-10-2022 Chronic Essential hypertension (20 sources) Hypertensive disorder; 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: [Unspecified essential hypertension] Onset: 3 02-16-2020 Chronic Genitourinary symptoms and ill-defined conditions (20 sources) Urinary incontinence; 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: [Unspecified urinary incontinence] Onset: 2 Chronic Genitourinary symptoms and ill-defined conditions (4 sources) Other retention of urine; 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: [Retention of urine] Onset: 0 Episodic Heart valve disorders (7 sources) Heart murmur 01-02-2022 Episodic Hyperplasia of prostate (20 sources) Benign prostatic hyperplasia; 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: [Benign prostatic hyperplasia with lower urinary tract symptoms] Onset: 0 02-16-2020 Chronic Infective arthritis and osteomyelitis (except that caused by tuberculosis or sexually transmitted disease) (20 sources) Osteomyelitis; 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: [Osteomyelitis, unspecified] 05-19-2022 Chronic Influenza (1 source) Influenza due to Influenza A virus; 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: [Influenza due to other identified influenza virus with other respiratory manifestations] 12-05-2023 Episodic Intracranial injury (19 sources) Concussion with no loss of consciousness; 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: [Concussion without loss of consciousness, initial encounter] 02-10-2022 Episodic Open wounds of extremities (19 sources) Amputated big toe; 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: [Complete traumatic amputation of right great toe, initial encounter] 02-21-2021 Chronic Open wounds of extremities (20 sources) Open wound of left thigh; 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: [Unspecified open wound, left thigh, subsequent encounter] 06-22-2022 Episodic Open wounds of extremities (13 sources) Open wound of lower limb; 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: [Laceration without foreign body, right lower leg, initial encounter] 02-13-2023 Episodic Open wounds of head; neck; and trunk (20 sources) Laceration - injury; 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: [Laceration] 05-31-2022 Episodic Osteoarthritis (20 sources) Arthritis; 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: [Osteoarthritis of joint of right ankle and/or foot] 01-02-2022 Chronic Other acquired deformities (1 source) Lumbar spondylolisthesis; 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: [Spondylolisthesis, lumbar region] Episodic Other aftercare (19 sources) Patient encounter status; 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: [Encounter for other specified aftercare] 06-09-2022 Episodic Other aftercare (19 sources) Follow-up status; 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: [Encounter for re-check of laceration wound] 06-15-2022 Episodic Other aftercare (1 source) Long-term current use of aspirin; 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: [group home (current) use of aspirin] Onset: 3 Episodic Other and ill-defined heart disease (7 sources) Heart disease 01-02-2022 Chronic Other and ill-defined heart disease (1 source) Other ill-defined heart diseases; 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: [Other ill-defined heart diseases] Onset: 3 Chronic Other and unspecified benign neoplasm (20 sources) History of polyp of colon; 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: [Personal history of colonic polyps] Onset: 7 02-16-2020 Episodic Other congenital anomalies (1 source) Anophthalmos; 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: [Other anophthalmos] 12-20-2021 Chronic Other congenital anomalies (1 source) Anophthalmos of right eye; 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: [Other anophthalmos] 10-17-2023 Chronic Other connective tissue disease (19 sources) Foot swelling; 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: [Other specified soft tissue disorders] 11-19-2021 Episodic Other connective tissue disease (1 source) History of fusion of thoracic spine; 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: [Arthrodesis status] Episodic Other diseases of kidney and ureters (2 sources) Urinary tract obstruction; 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: [Other obstructive and reflux uropathy] Onset: 3 Episodic Other endocrine disorders (19 sources) Hypoglycemia; 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: [Hypoglycemia, unspecified] 12-21-2021 Chronic Other eye disorders (20 sources) Finding of prosthesis of eyeball; 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: [Presence of artificial eye] Onset: 0 02-16-2020 Chronic Other eye disorders (1 source) Vitreous floaters of left eye; 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: [Other vitreous opacities, left eye] Chronic Other eye disorders (1 source) Posterior vitreous detachment of left eye; 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: [Vitreous degeneration, left eye] 10-17-2023 Chronic Other eye disorders (1 source) Chorioretinal scar of left eye; 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: [Unspecified chorioretinal scars, left eye] 10-17-2023 Chronic Other eye disorders (2 sources) History of [id number] (YAG) laser capsulotomy of lens; 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: [Cataract extraction status, unspecified eye] 06-12-2023 Episodic Other gastrointestinal disorders (20 sources) Dysphagia; 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: [Dysphagia, unspecified] Onset: 3 02-20-2021 Episodic Other gastrointestinal disorders (1 source) Pharyngeal dysphagia; 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: [Dysphagia, pharyngeal phase] Episodic Other injuries and conditions due to external causes (19 sources) Local infection of wound; 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: [Other injury of unspecified body region, initial encounter] 10-03-2021 Episodic Other injuries and conditions due to external causes (19 sources) Wound hemorrhage; 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: [Other injury of unspecified body region, initial encounter] 06-21-2020 Episodic Other injuries and conditions due to external causes (18 sources) Puncture wound - injury; 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: [Other injury of unspecified body region, initial encounter] 07-02-2022 Episodic Other injuries and conditions due to external causes (8 sources) Other injury of unspecified body region, initial encounter; 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: [Open wound(s) (multiple) of unspecified site(s), without mention of complication] 07-30-2022 Episodic Other liver diseases (7 sources) Disease of liver 01-02-2022 Chronic Other lower respiratory disease (2 sources) Dyspnea; 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: [Other respiratory abnormalities] Episodic Other lower respiratory disease (19 sources) Cough; 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: [Cough] 03-21-2020 Episodic Other nervous system disorders (20 sources) Chronic pain; 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: [Other chronic pain] Onset: 0 02-16-2020 Chronic Other nervous system disorders (19 sources) Neuropathy; 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: [Polyneuropathy, unspecified] 02-21-2021 Chronic Other nervous system disorders (1 source) Chronic pain syndrome; 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: [Chronic pain syndrome] Chronic Other nervous system disorders (19 sources) Unresponsive ; 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: [Other symptoms and signs involving cognitive functions and awareness] 11-08-2021 Episodic Other nutritional; endocrine; and metabolic disorders (9 sources) Body mass index 30+ - obesity; 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: [Body mass index (BMI) 37.0-37.9, adult] Onset: 3 Chronic Other screening for suspected conditions (not mental disorders or infectious disease) (3 sources) Cardiovascular stress test abnormal; 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: [Other nonspecific abnormal results of function study of cardiovascular system] Onset: 3 Episodic Paralysis (20 sources) Paraplegia; 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: [Paraplegia, unspecified] Onset: 2 01-10-2022 Chronic Pneumonia (except that caused by tuberculosis or sexually transmitted disease) (19 sources) Community acquired pneumonia; 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: [Pneumonia, unspecified organism] 10-11-2020 Episodic Poisoning by nonmedicinal substances (19 sources) Bee sting; 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: [Toxic effect of venom of bees, accidental (unintentional), initial encounter] 07-24-2020 Episodic Screening and history of mental health and substance abuse codes (2 sources) Ex-smoker; 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: [Personal history of tobacco use] Episodic Comment on above: Quit 35 years ago; Skin and subcutaneous tissue infections (20 sources) Abscess; 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: [Cellulitis, unspecified] Onset: 2 02-16-2020 Episodic Spondylosis; intervertebral disc disorders; other back problems (20 sources) Lumbar spondylosis; 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: [Spondylosis without myelopathy or radiculopathy, lumbar region] Onset: 0 09-01-2020 Chronic Spondylosis; intervertebral disc disorders; other back problems (20 sources) Spinal stenosis of lumbar region; 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: [Spinal stenosis, lumbar region without neurogenic claudication] Onset: 5 01-16-2005 Episodic Sprains and strains (19 sources) Sprain of ligament of finger; 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: [Unspecified sprain of unspecified finger, initial encounter] 03-09-2020 Episodic Superficial injury; contusion (20 sources) Contusion of back; 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: [Contusion of unspecified back wall of thorax, initial encounter] 06-01-2022 Episodic Unclassified (2 sources) Long-term current use of aspirin 09-24-2023 Unclassified (2 sources) Patient encounter status 09-24-2023 Unclassified (1 source) Olecranon bursitis, right elbow; 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: [Olecranon bursitis, right elbow] Onset: 3 Unclassified (1 source) Pain in right elbow; 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: [Pain in right elbow] Onset: 3 Unclassified (1 source) Acute cough; 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: [Acute cough] Onset: 3 Unclassified (1 source) Dysphagia, pharyngoesophageal phase; 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: [Dysphagia, pharyngoesophageal phase] Onset: 3 Unclassified (1 source) Other low back pain; 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: [Other low back pain] Onset: 3 Unclassified (1 source) Unspecified injury of pelvis, initial encounter; 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: [Unspecified injury of pelvis, initial encounter] Onset: 3 Unclassified (1 source) Laceration without foreign body, right lower leg, initial encounter; 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: [Laceration without foreign body, right lower leg, initial encounter] Onset: Past or Other Problems Problem Classification Problem Date Documented Da te Episodic/Chronic Headache; including migraine (9 sources) Headache; 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: [Headaches] Onset: 03-21-2023 Episodic Nonspecific chest pain (20 sources) Atypical chest pain; 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: [Other chest pain] Onset: 07-30-2023 11-08-2021 Episodic Other aftercare (20 sources) Long-term current use of insulin; 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] Onset: 02-16-2020 02-16-2020 Episodic Other aftercare (1 source) 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; 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] Onset: 07-30-2023 Episodic Other connective tissue disease (20 sources) Swelling of lower limb; 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: [Other specified soft tissue disorders] Onset: 01-24-2012 02-16-2020 Episodic Other gastrointestinal disorders (20 sources) Constipation; 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: [Constipation, unspecified] Onset: 02-16-2020 02-16-2020 Episodic Other gastrointestinal disorders (3 sources) Dysphagia, unspecified; 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: [Dysphagia, unspecified] Onset: 01-01-2023 01-01-2023 Episodic Other injuries and conditions due to external causes (14 sources) History of spinal cord injury; 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: [Personal history of other (healed) physical injury and trauma] Onset: 10-09-2022 Episodic Other nervous system disorders (1 source) Other acute postprocedural pain; 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: [Post-op pain] Onset: 03-24-2023 Episodic Other nutritional; endocrine; and metabolic disorders (1 source) Personal history of other endocrine, nutritional and metabolic disease; 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: [Personal history of other endocrine, nutritional and metabolic disease] Onset: 03-21-2023 Episodic Phlebitis; thrombophlebitis and thromboembolism (9 sources) H/O: Deep vein thrombosis; 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: [Personal history of other venous thrombosis and embolism] Onset: 03-21-2023 Episodic Residual codes; unclassified (8 sources) History of lumbar laminectomy; 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: [Other specified postprocedural states] Onset: 03-25-2023 Episodic Results Test Name Value Interpretation Reference Range Facility Alanine aminotransferase [En zymatic activity/volume] in Serum or PlasmaOrdered By: Solomon Palacio on 12-05-2023 ALT [Catalytic activity/Vol] 18 U/L 7-52 [facility] Albumin [Mass/volume] in Ser um or Plasma by Bromocresol green (BCG) dye binding methoOrdered By: Solomon Palacio on 12-05-2023 Albumin BCG dye [Mass/Vol] 3.5 g/dL 3.5-5.7 [facility] Alkaline phosphatase [Enzyma tic activity/volume] in Serum or PlasmaOrdered By: Solomon Palacio on 12-05-2023 ALP [Catalytic activity/Vol] 102 U/L 34-104 [facility] Aspartate aminotransferase [ Enzymatic activity/volume] in Serum or PlasmaOrdered By: Solomon Palacio on 12-05-2023 AST [Catalytic activity/Vol] 18 U/L 13-39 [facility] B-Type Natriuretic Peptideon 12-05-2023 Natriuretic peptide B (Bld) [Mass/Vol] 72.0 pg/mL Normal 5-100 [facility] Comment on above: Result Comment: PERF ORMED BY: [place] [address] PATHOLOGIST REEL SLITTER HTERESA CHOUDHARY M.D. Performed By: #### H S TROP #### [address] Basophils Auto (Bld) [#/Vol] Ordered By: Solomon Palacio on 12-05-2023 Basophils (Bld) [#/Vol] 0.1 10*3/uL 0.0-0.2 [facility] Basophils/100 WBC Auto (Bld) Ordered By: Solomon Palacio on 12-05-2023 Basophils/100 WBC (Bld) 0.7 % . [facility] Bilirubin.total [Mass/volume ] in Serum or PlasmaOrdered By: Solomon Palacio on 12-05-2023 Bilirubin [Mass/Vol] 0.6 mg/dL 0.3-1.0 [facility] Blood Cultureon 12-05-2023 Bacteria identified Cx Nom (Bld) No Growth 4 Days PERFORMED BY: [facility] [place] [address] PATHOLOGIST REEL SLITTER THERESA CHOUDHARY M.D. [facility] Comment on above: Performed By: #### H S TROP #### [facility] [address] [place] [address] Bacteria identified Cx Nom (Bld) No Growth 4 Days PERFORMED BY: [place] [address] PATHOLOGIST REEL SLITTER THERESA CHOUDHARY M.D. [facility] Comment on above: Performed By: #### H S TROP #### [facility] [address] [place] [address] COVID CepheidOrdered By: Natalie Palacio on 12-05-2023 SARS-CoV-2 (COVID-19) Ab IA Ql Negative Negative [facility] Comment on above: This is a duplicate Cepheid Xpert Xpress CoV-2/Flu/RSV Plus RNA by RT-PCR result to be used for statistical tracking purpose only. SARS-CoV-2 (COVID-19) RNA HAY+probe Ql (Unsp spec) [facility] COVID-19 / Flu A/B / RSV PCR on 12-05-2023 SARS-CoV-2 (COVID-19) RNA HAY+probe Ql (Unsp spec) COVID-19 Cepheid Result Negative for SARS-CoV-2 RNA by RT-PCR Flu A Cepheid Result Positive for Flu A RNA by RT-PCR Flu B Cepheid Result Negative for Flu B RNA by RT-PCR RSV Cepheid Result Negative for RSV RNA by RT-PCR COVID19 Blank Space Reference: Negative COVID19 Blank Space Cepheid Disclaimer The Cepheid Xpert Xpress CoV-2/Flu/RSV Plus has Cepheid Disclaimer not been FDA cleared or approved; this test has Cepheid Disclaimer been authorized by FDA under an EUA for use by Cepheid Disclaimer authorized laboratories; this test has been Cepheid Disclaimer authorized only for the simultaneous qualitative Cepheid Disclaimer detection and differentiation of nucleic acids from Cepheid Disclaimer SARS-CoV-2, influenza A, influenza B, and Cepheid Disclaimer respiratory syncytial virus (RSV), and not for any Cepheid Disclaimer other viruses or pathogens; and this test is only Cepheid Disclaimer authorized for the duration of the declaration that Cepheid Disclaimer circumstances exist justifying the authorization of Cepheid Disclaimer emergency use of in vitro diagnostic tests for Cepheid Disclaimer detection and/or diagnosis of COVID-19 under Cepheid Disclaimer Section 564(b)(1) of the Act, 21 U.S.C. 360bbb- Cepheid Disclaimer 3(b)(1), unless the authorization is terminated or Cepheid Disclaimer revoked sooner. PERFORMED BY: [place] [address] PATHOLOGIST REEL SLITTER THERESA CHOUDHARY M.D. Normal [facility] Comment on above: Performed By: #### C OVID19 FLU RSV, CEPHEID NEG #### [address] Calcium [Mass/volume] in Ser um or PlasmaOrdered By: Solomon Palacio on 12-05-2023 Calcium [Mass/Vol] 9.0 mg/dL 8.6-10.3 [facility] Carbon dioxide, total [Moles /volume] in Serum or PlasmaOrdered By: Solomon Palacio on 12-05-2023 CO2 [Moles/Vol] 24.7 mmol/L 21.0-31.0 [facility] Cepheid COVID PCR Negativeon 12-05-2023 SARS-CoV-2 (COVID-19) RNA HAY+probe Ql (Unsp spec) Negative Normal Negative [facility] Comment on above: Result Comment: This is a duplicate Cepheid Xpert Xpress CoV-2/Flu/RSV Plus RNA by RT-PCR result to be used for statistical tracking purpose only. PERFORMED BY: [place] [address] PATHOLOGIST REEL SLITTER THERESA CHOUDHARY M.D. Performed By: #### C OVID19 FLU RSV, CEPHEID NEG #### [address] Chloride [Moles/volume] in S kiran or PlasmaOrdered By: Solomon Palacio on 12-05-2023 Chloride [Moles/Vol] 99 mmol/L 98-107 [facility] Complete Blood Count Auto Di ffon 12-05-2023 Basophils (Bld) [#/Vol] 0.1 10*3/uL Normal 0.0-0.2 [facility] Comment on above: Result Comment: PERF ORMED BY: [place] [address] PATHOLOGIST REEL SLITTER THERESA CHOUDHARY M.D. Performed By: #### B INSTALLMENT DEALER #### [address] Basophils/100 WBC (Bld) 0.7 % Normal . [facility] Comment on above: Performed By: #### B INSTALLMENT DEALER #### [address] Eosinophils (Bld) [#/Vol] 0.0 10*3/uL Normal 0.0-0.45 [facility] Comment on above: Performed By: #### B INSTALLMENT DEALER #### [address] Eosinophils/100 WBC (Bld) 0.2 % Normal . [facility] Comment on above: Performed By: #### B INSTALLMENT DEALER #### [address] Erythrocyte distribution width (RBC) [Ratio] 13.8 % Normal 12.0-14.8 [facility] Comment on above: Performed By: #### B INSTALLMENT DEALER #### [address] Hematocrit (Bld) [Volume fraction] 38.3 % Low 38.8-50.0 [facility] Comment on above: Performed By: #### B INSTALLMENT DEALER #### [address] Hemoglobin (Bld) [Mass/Vol] 13.1 g/dL Normal 13.0-17.0 [facility] Comment on above: Performed By: #### B INSTALLMENT DEALER #### [address] Lymphocytes (Bld) [#/Vol] 1.8 10*3/uL Normal 1.00-4.8 [facility] Comment on above: Performed By: #### B INSTALLMENT DEALER #### [address] Lymphocytes/100 WBC (Bld) 15.4 % Normal . [facility] Comment on above: Performed By: #### B INSTALLMENT DEALER #### [address] MCH (RBC) [Entitic mass] 29.0 pg Normal 27.5-35.2 [facility] Comment on above: Performed By: #### B INSTALLMENT DEALER #### [address] MCV (RBC) [Entitic vol] 84.7 fL Normal 83.5-101 [facility] Comment on above: Performed By: #### B INSTALLMENT DEALER #### [address] Mean Corpuscular HGB Conc 34.2 g/dL Normal 32.5-35.6 [facility] Comment on above: Performed By: #### B INSTALLMENT DEALER #### [address] Monocytes (Bld) [#/Vol] 1.4 10*3/uL High 0.0-0.8 [facility] Comment on above: Performed By: #### B INSTALLMENT DEALER #### [address] Monocytes/100 WBC (Bld) 18.09 % Normal 0.00-20.00 [facility] Comment on above: Performed By: #### B INSTALLMENT DEALER #### [facility] [address] [place] [address] [place] Monocytes/100 WBC (Bld) 12.0 % Normal . [facility] Comment on above: Performed By: #### B INSTALLMENT DEALER #### [facility] [address] Neutrophils (Bld) [#/Vol] 8.3 10*3/uL High 1.8-7.7 [facility] Comment on above: Performed By: #### B INSTALLMENT DEALER #### [facility] [address] Neutrophils/100 WBC (Bld) 71.7 % Normal . [facility] Comment on above: Performed By: #### B INSTALLMENT DEALER #### [address] NRBC% 0.1 /100{WBC} Normal 0-0.5 [facility] Comment on above: Performed By: #### B INSTALLMENT DEALER #### [address] Platelet mean volume (Bld) [Entitic vol] 7.2 fL Normal 6.6-10.1 [facility] Comment on above: Performed By: #### B INSTALLMENT DEALER #### [place] [address] [place] Platelets (Bld) [#/Vol] 352 10*3/uL Normal 150-450 [facility] Comment on above: Performed By: #### B INSTALLMENT DEALER #### [place] [address] [place] RBC (Bld) [#/Vol] 4.52 10*6/uL Normal 3.90-5.60 [facility] Comment on above: Performed By: #### B INSTALLMENT DEALER #### [address] WBC (Bld) [#/Vol] 11.5 10*3/uL High 4.1-10.5 [facility] Comment on above: Performed By: #### B INSTALLMENT DEALER #### [facility] [address] Comprehensive Metabolic Pane reji 12-05-2023 Albumin [Mass/Vol] 3.5 g/dL Normal 3.5-5.7 [facility] Comment on above: Performed By: #### B INSTALLMENT DEALER #### [facility] [address] Albumin/Globulin [Mass ratio] 0.9 {ratio} Normal [facility] Comment on above: Performed By: #### B INSTALLMENT DEALER #### [address] ALP [Catalytic activity/Vol] 102 U/L Normal 34-104 [facility] Comment on above: Performed By: #### B INSTALLMENT DEALER #### [address] ALT [Catalytic activity/Vol] 18 U/L Normal 7-52 [facility] Comment on above: Performed By: #### B INSTALLMENT DEALER #### [address] Anion gap [Moles/Vol] 13.5 mmol/L Normal 6.0-15.0 [facility] Comment on above: Performed By: #### B INSTALLMENT DEALER #### [address] AST [Catalytic activity/Vol] 18 U/L Normal 13-39 [facility] Comment on above: Performed By: #### B INSTALLMENT DEALER #### [address] Bilirubin [Mass/Vol] 0.6 mg/dL Normal 0.3-1.0 [facility] Comment on above: Performed By: #### B INSTALLMENT DEALER #### [address] Calcium [Mass/Vol] 9.0 mg/dL Normal 8.6-10.3 [facility] Comment on above: Performed By: #### B INSTALLMENT DEALER #### [address] Chloride [Moles/Vol] 99 mmol/L Normal 98-107 [facility] Comment on above: Performed By: #### B INSTALLMENT DEALER #### [facility] [address] CO2 [Moles/Vol] 24.7 mmol/L Normal 21.0-31.0 [facility] Comment on above: Performed By: #### B INSTALLMENT DEALER #### [facility] [address] Creatinine [Mass/Vol] 1.39 mg/dL High 0.70-1.30 [facility] Comment on above: Performed By: #### B INSTALLMENT DEALER #### [facility] [address] Creatinine Clr Calc Pharmacy 72.08 [facility] Comment on above: Result Comment: PERF ORMED BY: [place] [address] PATHOLOGIST REEL SLITTER THERESA CHOUDHARY M.D. Performed By: #### B INSTALLMENT DEALER #### [facility] [address] GFR/1.73 sq M.predicted MDRD (S/P/Bld) [Vol rate/Area] 52.867 mL/min/{1.73_m2} [facility] Comment on above: Performed By: #### B INSTALLMENT DEALER #### [address] Globulin (S) [Mass/Vol] 3.7 g/dL [facility] Comment on above: Performed By: #### B INSTALLMENT DEALER #### [facility] [address] Glucose [Mass/Vol] 257 mg/dL High 70-100 [facility] Comment on above: Result Comment: [facility] Glucose Reference Range is dependent on time and content of last meal. Glucose of more than 200 mg/dL in a nonstressed, ambulatory subject supports the diagnosis of Diabetes Mellitus. ADA recommended reference range Performed By: #### B INSTALLMENT DEALER #### [facility] [address] Potassium [Moles/Vol] 4.2 mmol/L Normal 3.5-5.1 [facility] Comment on above: Performed By: #### B INSTALLMENT DEALER #### [facility] [address] Protein [Mass/Vol] 7.2 g/dL Normal 6.4-8.9 [facility] Comment on above: Performed By: #### B INSTALLMENT DEALER #### [facility] [address] Sodium [Moles/Vol] 133 mmol/L Low 136-145 [facility] Comment on above: Performed By: #### B INSTALLMENT DEALER #### [facility] [address] Urea nitrogen [Mass/Vol] 14 mg/dL Normal 7-25 [facility] Comment on above: Performed By: #### B INSTALLMENT DEALER #### [facility] [address] [place] [address] Creatinine [Mass/volume] in Serum or PlasmaOrdered By: Solomon Palacio on 12-05-2023 Creatinine [Mass/Vol] 1.39 mg/dL 0.70-1.30 [facility] ECG 12 lead ECGon 12-05-2023 ECG 12 lead ECG [facility] [place] [address] [place] [address] Electrocardiograph Report Signed Patient: Trey Figueroa Sr MR#: [id number] : 1950 Acct:[id number] Age/Sex: 73 / M ADM Date: 12/05/23 Loc: ER Room: Type: [facility] ER Attending Dr: Ordering Provider: Solomon Palacio DO Date of Service: 12/05/2304/23/1824 ECG/ECG 12 lead ECG: Shortness of Breath/Dyspnea Copies to: Test Reason : Blood Pressure : 148/092 mmHG Vent. Rate : 134 BPM Atrial Rate : 134 BPM P-R Int : 200 ms QRS Dur : 088 ms QT Int : 318 ms P-R-T Axes : 017 -16 068 degrees QTc Int : 474 ms Sinus tachycardia with premature atrial complexes with aberrant conduction Inferior infarct (cited on or before 14-DEC-2021) Anterior infarct (cited on or before 19-MAY-2022) Abnormal ECG When compared with ECG of 31-JUL-2023 07:26, aberrant conduction is now present Vent. rate has increased BY 65 BPM Questionable change in initial forces of Anterior leads Confirmed by SOLOMON PALACIO DO ([id number]) on 12/06/2023 1:57:29 AM Referred By: Electronically Signed By:SOLOMON PALACIO DO Transcribed By: MUS Signed By Solomon Palacio DO 12/06 0157 Normal [facility] Eosinophils Auto (Bld) [#/Vo l]Ordered By: Solomon Palacio on 12-05-2023 Eosinophils (Bld) [#/Vol] 0.0 10*3/uL 0.0-0.45 [facility] Eosinophils/100 WBC Auto (Bl d)Ordered By: Solomon Palacio on 12-05-2023 Eosinophils/100 WBC (Bld) 0.2 % . [facility] Erythrocyte distribution wid th Auto (RBC) [Ratio]Ordered By: Solomon Palacio on 12-05-2023 Erythrocyte distribution width (RBC) [Ratio] 13.8 % 12.0-14.8 [facility] Globulin Calc (S) [Mass/Vol] Ordered By: Solomon Palacio on 12-05-2023 Globulin (S) [Mass/Vol] 3.7 g/dL [facility] Glucose [Mass/volume] in Ser um or PlasmaOrdered By: Solomon Palacio on 12-05-2023 Glucose [Mass/Vol] 257 mg/dL 70-100 [facility] Comment on above: ADA recommended refe rence rangeRandom Glucose Reference Range is dependent on time and content of last meal. Glucose of more than 200 mg/dL in a nonstressed, ambulatory subject supports the diagnosis of Diabetes Mellitus. Hematocrit Auto (Bld) [Volum e fraction]Ordered By: Solomon Palacio on 12-05-2023 Hematocrit (Bld) [Volume fraction] 38.3 % 38.8-50.0 [facility] Hemoglobin [Mass/volume] in BloodOrdered By: Solomon Palacio on 12-05-2023 Hemoglobin (Bld) [Mass/Vol] 13.1 g/dL 13.0-17.0 [facility] Lactate [Moles/volume] in Se rum or PlasmaOrdered By: Solomon Palacio on 12-05-2023 Lactate [Moles/Vol] 1.6 mmol/L 0.5-2.2 [facility] Lactic Acidon 12-05-2023 Lactate [Moles/Vol] 1.6 mmol/L Normal 0.5-2.2 [facility] Comment on above: Result Comment: PERF ORMED BY: [facility] [address] [place] [address] PATHOLOGIST REEL SLITTER THERESA CHOUDHARY M.D. Performed By: #### B INSTALLMENT DEALER #### [address] Leukocytes [#/volume] correc natali for nucleated erythrocytes in Blood by Automated counOrdered By: Solomon Palacio on 12-05-2023 WBC corrected for nucl RBC Auto (Bld) [#/Vol] 11.5 10*3/uL 4.1-10.5 [facility] Lymphocytes Auto (Bld) [#/Vo l]Ordered By: Solomon Palacio on 12-05-2023 Lymphocytes (Bld) [#/Vol] 1.8 10*3/uL 1.00-4.8 [facility] Lymphocytes/100 WBC Auto (Bl d)Ordered By: Solomon Palacio on 12-05-2023 Lymphocytes/100 WBC (Bld) 15.4 % . [facility] MCH Auto (RBC) [Entitic mass ]Ordered By: Solomon Palacio on 12-05-2023 MCH (RBC) [Entitic mass] 29.0 pg 27.5-35.2 [facility] MCHC Auto (RBC) [Mass/Vol]Or dered By: Solomon Palacio on 12-05-2023 MCHC (RBC) [Mass/Vol] 34.2 g/dL 32.5-35.6 [facility] MCV Auto (RBC) [Entitic vol] Ordered By: Solomon Palacio on 12-05-2023 MCV (RBC) [Entitic vol] 84.7 fL 83.5-101 [facility] Monocyte distribution width [Entitic volume] in Blood by AutomatedOrdered By: Solomon Palacio on 12-05-2023 Monocyte distribution width Auto (Bld) [Entitic vol] 18.09 % 0.00-20.00 [facility] Monocytes Auto (Bld) [#/Vol] Ordered By: Solomon Palacio on 12-05-2023 Monocytes (Bld) [#/Vol] 1.4 10*3/uL 0.0-0.8 [facility] Monocytes/100 WBC Auto (Bld) Ordered By: Soolmon Palacio on 12-05-2023 Monocytes/100 WBC (Bld) 12.0 % . [facility] Natriuretic peptide B [Mass/ Vol]Ordered By: Solomon Palacio on 12-05-2023 Natriuretic peptide B (Bld) [Mass/Vol] 72.0 pg/mL 5-100 [facility] Neutrophils Auto (Bld) [#/Vo l]Ordered By: Solomon Palacio on 12-05-2023 Neutrophils (Bld) [#/Vol] 8.3 10*3/uL 1.8-7.7 [facility] Neutrophils/100 WBC Auto (Bl d)Ordered By: Solomon Palacio on 12-05-2023 Neutrophils/100 WBC (Bld) 71.7 % . [facility] No Panel InformationOrdered By: Solomon Palacio on 12-05-2023 Estimated GFR (CKD-EPI) 52.867 mL/Min [facility] Creatinine Clearance (Chem 72.08 [facility] Nucleated erythrocytes [Pres ence] in Blood by Automated countOrdered By: Solomon Palacio on 12-05-2023 Nucleated RBC Auto Ql (Bld) 0.1 /100{WBC} 0-0.5 [facility] Platelet mean volume Auto (B ld) [Entitic vol]Ordered By: Solomon Palacio on 12-05-2023 Platelet mean volume (Bld) [Entitic vol] 7.2 fL 6.6-10.1 [facility] Platelets Auto (Bld) [#/Vol] Ordered By: Solomon Palacio on 12-05-2023 Platelets (Bld) [#/Vol] 352 10*3/uL 150-450 [facility] Potassium [Moles/volume] in Serum or PlasmaOrdered By: Solomon Palacio on 01-05-2024 Potassium [Moles/Vol] 4.2 mmol/L 3.5-5.1 [facility] Protein [Mass/volume] in Ser um or PlasmaOrdered By: Solomon Palacio on 12-05-2023 Protein [Mass/Vol] 7.2 g/dL 6.4-8.9 [facility] RBC Auto (Bld) [#/Vol]Ordere d By: Solomno Palacio on 12-05-2023 RBC (Bld) [#/Vol] 4.52 10*6/uL 3.90-5.60 [facility] Serum or plasma albumin/glob ulin mass ratioOrdered By: Solomon Palacio on 12-05-2023 Albumin/Globulin [Mass ratio] 0.9 {ratio} [facility] Serum or plasma anion gap de terminationOrdered By: Solomon Palacio on 12-05-2023 Anion gap [Moles/Vol] 13.5 mmol/L 6.0-15.0 [facility] Sodium [Moles/volume] in Ser um or PlasmaOrdered By: Solomon Palacio on 12-05-2023 Sodium [Moles/Vol] 133 mmol/L 136-145 [facility] Troponin I High Sensitivityo n 12-05-2023 Troponin I High Sensitivity 15.4 pg/mL Normal 0.0-20.0 [facility] Comment on above: Result Comment: PERF ORMED BY: [place] [address] PATHOLOGIST REEL SLITTER THERESA CHOUDHARY M.D. Performed By: #### B INSTALLMENT DEALER #### [address] Troponin I.cardiac [Mass/vol ume] in Serum or Plasma by Detection limit <= 0.01 ng/Ordered By: Solomon Palacio on 12-05-2023 Troponin I.cardiac DL <= 0.01 ng/mL [Mass/Vol] 15.4 pg/mL 0.0-20.0 [facility] Urea nitrogen [Mass/volume] in Serum or PlasmaOrdered By: Solomon Palacio on 12-05-2023 Urea nitrogen [Mass/Vol] 14 mg/dL 7-25 [facility] WBC Auto (Bld) [#/Vol]Ordere d By: Solomon Palacio on 12-05-2023 WBC (Bld) [#/Vol] 11.5 10*3/uL 4.1-10.5 [facility] XR chest 1V portableon 12-05 XR chest 1V portable [facility] [place] [address] XRay Report Signed Patient: Trey Figueroa Sr MR#: [id number] : 1950 Acct:[id number] Age/Sex: 73 / M ADM Date: 12/05/23 Loc: ER Room: Type: [facility] ER Attending Dr: Copies to: Solomon Palacio DO Ordering Provider: Solomon Palacio DO Date of Service: 12/05/23 XR/XR chest 1V portable: Shortness of Breath/Dyspnea Plain film chest Single view HISTORY: Chest pain. COMPARISON: 10/24/2023 FINDINGS: SUPPORT DEVICES: None POSTSURGICAL CHANGES: None HEART: Within normal limits PULMONARY JESSIE: Within normal limits MEDIASTINUM: Unremarkable LUNGS AND PLEURA: No acute lung process, pleural effusion or pneumothorax identified. Mild atelectasis BONY STRUCTURES: Intact ADDITIONAL FINDINGS None XR/XR chest 1V portable IMPRESSION: No acute process. Impression dictated by: Augusto Munoz M.D.12/05/2023 8:15 PM Dictation Location: [place] [address] Transcribed By: [facility] 12/05/232014 Dictated By: Augusto Munoz DO 12/05/232013 Signed By: 12/05/232014 Normal [facility] Formson 11-27-2023 Forms [id number]#1.00TIFF Normal [facility] Consultation Noteon 11-25-20 Consultation Note [id number]#1.00TIFF Normal [facility] ECG 12-Leadon 11-25-2023 ECG 12-Lead [id number]#1.00TIFF Normal [facility] Echocardiographyon Echocardiography [id number]#1.00TIFF Normal [facility] Formson 11-25-2023 Forms [id number]#1.00TIFF Normal [facility] Lab Reportson 11-25-2023 Lab Reports [id number]#1.00TIFF Normal [facility] Lab Reports [id number]#1.00TIFF Normal [facility] Lab Reports [id number]#1.00TIFF Normal [facility] RAD - MISCon 11-25-2023 RAD - MISC [id number]#1.00TIFF Normal [facility] Body fluid crystal identific ation by light microscopyOrdered By: Conchis Beckwith on 11-10-2023 Crystals LM Nom (Body fld) None seen None Seen [facility] Cell Count Diff,Synovial Flu idon 11-10-2023 Appearance, Synovial Fluid Hazy Critically abnormal Clear [facility] Comment on above: Order Comment: Synov ial Fluid Source: UNK Synovial Fluid Site: UNK Performed By: #### S YNCT, SYN JEANINE #### [facility] [address] [place] [id number] [place] Color, Synovial Fluid RED Normal [facility] Comment on above: Order Comment: Synov ial Fluid Source: UNK Synovial Fluid Site: UNK Performed By: #### S YNCT, SYN JEANINE #### [facility] [address] [place] [id number] [place] Color, Synovial Supernatant Straw Normal [facility] Comment on above: Order Comment: Synov ial Fluid Source: UNK Synovial Fluid Site: UNK Result Comment: The reference interval and other method performance specifications have not been established for this body fluid. The test result must be integrated into the clinical context for interpretation. Performed By: #### S YNCT, SYN JEANINE #### [facility] [address] Eosinophils,Synovial Fluid 0 % Normal 0-2 [facility] Comment on above: Order Comment: Synov ial Fluid Source: UNK Synovial Fluid Site: UNK Performed By: #### S YNCT, SYN JEANINE #### [facility] [address] [place] [address] Lymphocytes, Synovial Fluid 75 % High 0-74 [facility] Comment on above: Order Comment: Synov ial Fluid Source: UNK Synovial Fluid Site: UNK Performed By: #### S YNCT, SYN JEANINE #### [place] [address] [place] Monocyte/Histiocyte,Sy nov.Fld. 8 % Normal 0-69 [facility] Comment on above: Order Comment: Synov ial Fluid Source: UNK Synovial Fluid Site: UNK Performed By: #### S YNCT, SYN JEANINE #### [address] Neutrophils, Synovial Fluid 17 % Normal 0-24 [facility] Comment on above: Order Comment: Synov ial Fluid Source: UNK Synovial Fluid Site: UNK Performed By: #### S YNCT, SYN JEANINE #### [address] Other Cell, Synovial Fluid Normal [facility] Comment on above: Order Comment: Synov ial Fluid Source: UNK Synovial Fluid Site: UNK Result Comment: Body fluid is partially clotted and/or cell clumps or debris are present. Fluid cell count and differential results may not be reliable. Clinical correlation is recommended. The reference interval and other method performance specifications have not been established for this body fluid. The test result must be integrated into the clinical context for interpretation. PERFORMED BY: [place] [address] PATHOLOGIST REEL SLITTER THERESA CHOUDHARY M.D. Performed By: #### S YNCT, SYN JEANINE #### [address] [address] [place] RBC, Synovial Fluid Normal 0-0 [facility] Comment on above: Order Comment: Synov ial Fluid Source: UNK Synovial Fluid Site: UNK Result Comment: MANY RED BLOOD CELLS SEEN Body fluid is partially clotted and/or cell clumps or debris are present. Fluid cell count and differential results may not be reliable. Clinical correlation is recommended. Performed By: #### S LIANE, SYN JEANINE #### [facility] [address] TNC, Synovial Fluid Normal 0-150 [facility] Comment on above: Order Comment: Synov ial Fluid Source: UNK Synovial Fluid Site: UNK Result Comment: FEW WHITE BLOOD CELLS SEEN Body fluid is partially clotted and/or cell clumps or debris are present. Fluid cell count and differential results may not be reliable. Clinical correlation is recommended. The reference interval and other method performance specifications have not been established for this body fluid. The test result must be integrated into the clinical context for interpretation. Performed By: #### S LIANE, SYN JEANINE #### [address] Cells Counted Total [#] in B patrick fluidOrdered By: Conchis Beckwith on 11-10-2023 Cells Counted Total (Body fld) [#] See comment 0-150 [facility] Comment on above: FEW WHITE BLOOD CELL S SEENBody fluid is partially clotted and/or cell clumps or debris are present. Fluid cell count and differential results may not be reliable. Clinical correlation is recommended.The reference interval and other method performance specifications have not been established for this body fluid. The test result must be integrated into the clinical context for interpretation. Crystals,Synovial Fluidon Crystals,Synovial Fluid None Seen Normal None Seen [facility] Comment on above: Order Comment: Synov ial Fluid Source: UNK Synovial Fluid Site: UNK Result Comment: PERF ORMED BY: [place] [address] PATHOLOGIST REEL SLITTER THERESA CHOUDHARY M.D. Performed By: #### S LIANE, SYN JEANINE #### [address] [place] [address] [facility] [[email or web address]] Determination of appearance of body fluidOrdered By: Conchis Beckwith on 11-10-2023 Appearance (Body fld) Hazy Clear Fir [facility] Evaluation of color of body fluidOrdered By: Conchis Beckwith on 11-10-2023 Color (Body fld) Red [facility] Manual body fluid eosinophil s/100 leukocytesOrdered By: Conchis Beckwith on 11-10-2023 Eosinophils/100 WBC Manual cnt (Body fld) 0 % 0-2 [facility] Manual body fluid erythrocyt es count (number/volume)Ordered By: Conchis Beckwith on 11-10-2023 RBC Manual cnt (Body fld) [#/Vol] See comment 0-0 [facility] Comment on above: MANY RED BLOOD CELLS SEENBody fluid is partially clotted and/or cell clumps or debris are present. Fluid cell count and differential results may not be reliable. Clinical correlation is recommended. Manual body fluid lymphocyte s/100 leukocytesOrdered By: Conchis Beckwith on 11-10-2023 Lymphocytes/100 WBC Manual cnt (Body fld) 75 % 0-74 [facility] Neutrophils/100 WBC Manual c nt (Body fld)Ordered By: Conchis Beckwith on 11-10-2023 Neutrophils/100 WBC (Body fld) 17 % 0-24 [facility] No Panel InformationOrdered By: Conchis Beckwith on 11-10-2023 Synovial Fluid Supernatant Color Straw [facility] Comment on above: The reference interv al and other method performance specifications have not been established for this body fluid. The test result must be integrated into the clinical context for interpretation. Synovial fluid differential cell countOrdered By: Conchis Beckwith on 11-10-2023 Differential panel (Syn fld) 8 % 0-69 [facility] Differential panel (Syn fld) See comment [facility] Comment on above: Body fluid is partia lly clotted and/or cell clumps or debris are present. Fluid cell count and differential results may not be reliable. Clinical correlation is recommended.The reference interval and other method performance specifications have not been established for this body fluid. The test result must be integrated into the clinical context for interpretation. XR elbow RT min 3V*on 2022 XR elbow RT min 3V* [facility] [address] [place] [address] [place] [address] XRay Report Signed Patient: Trey Figueroa Sr MR#: [id number] : 1950 Acct:[id number] Age/Sex: 73 / M ADM Date: 11/05/23 Loc: ER Room: Type: [facility] ER Attending Dr: Copies to: Low Castellano DO Ordering Provider: Low Castellano DO Date of Service: 11/05/23 XR/XR elbow RT min 3V*: Extremity Injury, Upper RIGHT ELBOW - 4 views CLINICAL HISTORY: Swelling posterior right elbow with multiple falls over the past 4 days. COMPARISON: None FINDINGS: Extensive soft tissue swelling primarily posteriorly. Moderate degenerative changes are seen involving the elbow without acute bony process noted. XR/XR elbow RT min 3V* IMPRESSION: EXTENSIVE SOFT TISSUE SWELLING WITHOUT ACUTE BONY PROCESS. MODERATE DEGENERATIVE CHANGE. Impression dictated by: Bobby Carter Jr., Richardson11/06/2023 8:48 AM Dictation Location: [place] [address] Transcribed By: [facility] 11/06/2348 Dictated By: Bobby Carter Jr, DO 11/06/23 0847 Signed By: 11/06/23 0848 [facility] Consent for Procedure/Surger yon 11-05-2023 Consent for Procedure/Surgery [id number]#1.00TIFF [facility] Consent for Procedure/Surger yon 11-04-2023 Consent for Procedure/Surgery [id number]#1.00TIFF [facility] Consent for Treatmenton Consent for Treatment [id number]#1.00TIFF [facility] IntraOperative Documentson 1 01-05-2023 IntraOperative Documents [id number]#1.00TIFF [facility] Main OR Intraoperative Recor don 11-04-2023 Main OR Intraoperative Record IntraOp Document Type FTURO Summary Primary Physician: Luiz NAVARRO MD Finalized Date/Time: 11/04/23 09:20:36 Pt. Name: TREY FIGUEROA /Sex: 1950 Male Med Rec #: [id number] Physician: Luiz NAVARRO MD Financial #: [id number] Pt. Type: O Room/Bed: / Admit/Disch: 11/04/23 08:36:25 - Institution: Case Times FTURO Entry 1 Patient Times In Room 11/04/23 09:11:00 Out Room 11/04/23 09:28:00 Procedure Times Start 11/04/23 09:13:00 Stop 11/04/23 09:23:00 Anesthesia Times Last Modified By: Hernandez NORTON, CHRISTOOR, Lisa 11/04/23 09:20:10 Case Attendance FTURO Entry 1 Entry 2 Entry 3 Case Attendee Luiz NAVARRO MD RN, CHRISTOOR, Jeramie SHAH, Poornima Gonzalez Role Performed Surgeon - Primary Prekindergarten Teacher - Primary Scrub - Primary Time In 11/04/23 09:11:00 11/04/23 09:11:00 11/04/23 09:11:00 Time Out 11/04/23 09:28:00 11/04/23 09:28:00 11/04/23 09:28:00 Procedure CYSTOSCOPY LOCAL(.) CYSTOSCOPY LOCAL(.) CYSTOSCOPY LOCAL(.) Comments Last Modified By: Hernandez NORTON, CHRISTOOR, Hernandez NORTON, CHRISTOOR, Hernandez NORTON, CHRISTOOR, Lisa 11/04/23 Lisa 11/04/23 Lisa 11/04/23 09:20:11 09:20:11 09:20:11 Surgical Procedures FTURO Entry 1 Procedure Description Procedure CYSTOSCOPY LOCAL Modifiers . Surgeon Description cysto Primary Procedure Yes Primary Surgeon Luiz NAVARRO MD Start 11/04/23 09:13:00 Stop 11/04/23 09:23:00 Anesthesia Type Local Surgical Service Urology Wound Class 2 - Clean-Contaminated Last Modified By: Hernandez NORTON, CHRISTOOR, Lisa 11/04/23 09:20:13 General Case Data FTURO Pre-Care Text: Classifies surgical wound, implements aseptic technique, initiates traffic control Entry 1 Case Information OR URO 1 FT Case Level None Wound Class 2 - Clean-Contaminated Specialty Urology Preop Diagnosis BPH WITH OBSTRUCTION Postop Same As Preop No URINARY RETENTION Postop Diagnosis BPH WITH OBSTRUCTION Outcomes Met? Yes Last Modified By: LELE Ng RN, Ruthann 11/04/23 09:18:42 Post-Care Text: The patient is free from signs and symptoms of infection EU IntraOp - FTURO Pre-Care Text: Implements protective measures prior to operative or invasive procedure, confirms identity before the operative or invasive procedure, verifies operative procedure, surgical site, and laterality Entry 1 EU Perioperative Protocols Procedure(s) CYSTOSCOPY LOCAL(.) Patient Identity Birthday, ID Band Verified (select at Check, Patient least 2): Participation Consents / H and P HandP, Surgery/Procedure Operative Site N/A Verified Consent Marking Verified Surgical Site Yes Laterality Verified n/a Verified Procedure Verified Yes Correct Patient Yes Position Verified Availability Equipment, Medication Time Out RAMON CHARLES, Luiz Harper, Verified (If Participants LELE Ng RN, Applicable) Jeramie Gonzalez CST, Poornima Adams Time Out Complete 11/04/23 09:12:00 Allergies Reviewed? Yes Allergies Reviewed Self/Patient With Body Position Supine Prep Area penis Prep Agents Betadine Solution Skin. Condition Unable to Visualize Additional None Specimens Collected Vitals - EU Blood Pressure 111/73 Pulse 83 bpm Respirations 20 br/min SPO2 EBL 0 IandO - EU Total Intake 0 mL Total Output 0 mL Outcomes Met? Yes Last Modified By: LELE Ng RN, Ruthann 11/04/23 09:14:45 Post-Care Text: The patient is free from signs and symptoms of injury caused by extraneous objects Sign Out FTURO Entry 1 Before Patient Leaves OR Nurse verbally Yes Nurse verbally n/a confirms with the confirms with the team the name of team that the procedure(s) instrument, sponge, recorded and needle counts are correct (or N/A) Nurse verbally n/a Nurse verbally n/a confirms with the confirms with the team how the team whether there specimen is labeled are any equipment (including patient problems to be name), if applicable addressed Sign Out Complete 11/04/23 09:25:00 Last Modified By: LELE Ng RN, Ruthann 11/04/23 09:20:33 Case Comments Finalized By: LELE Ng RN, Ruthann Document Signatures Signed By: LELE Ng RN, Ruthann 11/04/23 09:20 Normal [facility] Main OR Preoperative Recordo n 11-04-2023 Main OR Preoperative Record Holding Area Document Type FTURO Summary Primary Physician: Luiz NAVARRO MD Finalized Date/Time: 11/04/23 09:02:58 Pt. Name: TREY FIGUEROA Angie Baum/Sex: 1950 Male Med Rec #: [id number] Physician: Luiz NAVARRO MD Financial #: [id number] Pt. Type: O Room/Bed: / Admit/Disch: 11/04/23 08:36:25 - Institution: Case Times Holding FTURO Pre-Care Text: Verifies consent for planned procedure, identifies individual values and wishes concerning care, includes family members in perioperative teaching Secures patient's records' belongings, and valuables, maintains patient's dignity and privacy, and maintains patient confidentiality Entry 1 In Holding 11/04/23 08:36:00 Outcomes Met? Yes Last Modified By: Poornima Sabillon RN 11/04/23 08:48:46 Post-Care Text: The patient participates in decisions affecting his or her perioperative plan of care The patient's right to privacy is maintained Surgery Checklist FTURO Entry 1 Patient Birthday, ID Band Procedure History and Physical, Identification: Check, Patient Verification: Surgical Consent, With Participation Patient NPO after Midnight: n/a Personal Items: Cataract Lens Implant, Dentures, Glasses Limitations: upper denturres; right Complaints of Pain: Yes eye cataract lens implant; glasses Pain Comment: 06/09 - back down legs Skin Integrity Dry, Warm Vitals - EU Blood Pressure 111/73 Pulse 80 bpm Respirations 20 br/min SPO2 97 % Additional None RN Reviewed Yes Specimens Collected Last Modified By: Poornima Sabillon RN 11/04/23 08:50:59 General Comments: temp 98.1f, asha mclaughlin Finalized By: LELE Ng RN, Ruthann Document Signatures Signed By: Poornima Sabillon RN 11/04/23 08:53 Poornima Sabillon RN 11/04/23 08:51 Hernandez NORTON, Lisa ROYAL 11/04/23 09:02 Normal [facility] Operative Reporton Operative Report Patient: EDWIN FIGUEROA MUNOZ A Age: 73 years Sex: Male : 1950 Associated Diagnoses: None Author: Luiz NAVARRO MD Procedure Operative Information Details: Date/ Time: 11/04/2023 09:25:00. Pre-Op Dx: BPH w/ LUTS - N40.1, Urgency Incontinence - N39.41, Frequency - R35.0, Incomplete Bladder Emptying - R39.14. Post-Op Dx: Same. Anesthesia Type: Local. Complications: None. Risks/Benefits/Informed Consent: Surgical risks, benefits, details of the procedure have been explained to the patient, Full informed consent has been obtained. Intraoperative Information Prepped: Patient is brought back to the endoscopy suite, Patient is placed in supine position, Patient prepped in the usual fashion with Betadine solution, 2% Xylocaine Jelly is placed per Urethra, After waiting several minutes the Cystoscope is introduced. The Urethra is: Normal. The Prostatic Urethra is: Obstructed, Median Lobe, Trilobar obstruction. 3 cm in length.. The Bladder is: Abnormal, Trabeculated (Severe (3), Severe bladder damage. High-grade trabeculation. Deep and numerous diverticuli. No bladder tumors.). The ureteral orifices: Show efflux of clear urine. Devices Implanted: None. Removal: Cystoscope is removed, The patient tolerated it well. Postoperative Information Discharge: Patient is discharged home with antibiotic coverage, Follow up arranged. This gentleman needs a TURP to preserve his remaining bladder function since he is already on max meds in the form of dutasteride and Hytrin and he is having severe bladder outlet obstructive symptoms. He is strongly desirous for this procedure. We will forego urodynamics due to his current medical situation.. Normal [facility] Comment on above: Result Comment: Elec tronically Signed By: Luiz NAVARRO MD\.br\Date and Time Signed: 11/04/23 09:27 EST Progress Note-Physicianon Progress Note-Physician Patient: TREY FIGUEROA Age: 73 years Sex: Male : 1950 Associated Diagnoses: None Author: RAMON CHARLES, Luiz Atkins X this gentleman has a long history of BPH with LUTS. He is managed with Hytrin and dutasteride. He has rather severe symptoms of urinary frequency urgency, weak stream, incomplete emptying, nocturia and some dysuria to name a few. On cystoscopy today, we identified severe bladder damage with numerous deep diverticuli. He also has obstructing prostate in a trilobar fashion. He is strongly desirous for a TURP to help to preserve his remaining bladder function and to improve his voiding symptoms. Review of Systems ROS reviewed as documented in chart Health Status Allergies: Allergic Reactions (Selected) No Known Medication Allergies Current medications: Home Medications (18) Active Albuterol (Eqv-ProAir HFA) 2 puff(s), PRN, Inhalation, q6hr amitriptyline 150 mg Tab 150 mg = 1 tab(s), Oral, Once a day (at bedtime) aspirin 81 mg Oral EC Tab 81 mg = 1 tab(s), Oral, Daily atorvastatin 40 mg Tab 40 mg = 1 tab(s), Oral, Bedtime dicyclomine 20 mg Tab 20 mg = 1 tab(s), Oral, QID dutasteride 0.5 mg Cap 0.5 mg = 1 cap(s), Oral, Daily Flovent HFA 110 Inhaler 2 puff(s), Inhalation, BID hydrochlorothiazide 25 mg Tab 25 mg = 1 tab(s), Oral, Daily Lantus 100 units/mL Injection-Insulin 41 unit(s), SubCutaneous, Once a day (at bedtime) losartan 25 mg Tab 25 mg = 1 tab(s), Oral, Daily meloxicam 15 mg oral tablet 15 mg = 1 tab(s), Oral, Daily Neosalus topical cream 1 marc, PRN, Topical, BID Nitro 0.4 mg Tab 1 tab(s), PRN, SubLingual, q5min NovoLOG 100 units/mL injectable solution 11 unit(s), SubCutaneous, TIDAC omeprazole 40 mg Cap-DR 40 mg = 1 cap(s), Oral, Daily terazosin 10 mg Cap 20 mg = 2 cap(s), Oral, Once a day (at bedtime) tiZANidine 4 mg Tab 4 mg = 1 tab(s), PRN, Oral, q8hr traMADOL 50 mg Tab 100 mg = 2 tab(s), PRN, Oral, Daily Problem list: All Problems Arthritis / SNOMED CT 2059894 / Confirmed Diabetes / SNOMED CT 844273933 / Confirmed Heart disease / SNOMED CT 29671335 / Confirmed Heart murmur / SNOMED CT 416656793 / Confirmed Hypertension / SNOMED CT 9663871860 / Confirmed Liver disease / SNOMED CT 425794543 / Confirmed BPH with obstruction/lower urinary tract symptoms / SNOMED CT 4197077958 / Confirmed Urge incontinence / SNOMED CT 657232525 / Confirmed Urinary retention / SNOMED CT 461369355 / Confirmed Aspirin long-term use / SNOMED CT 5145051912 / Confirmed Screening PSA (prostate specific antigen) / SNOMED CT 919587528 / Confirmed At risk for falls / SNOMED CT 304662614 / Possible Problem added when Risk for Falls Careplan was initiated. Histories Past Medical History: No active or resolved past medical history items have been selected or recorded. Family History: Heart disease Father Procedure history: Esophagogastroduodenoscopy ([id number]) on 08/15/2023 at 73 Years. Comments: 08/15/2023 17:07 HOMER Luciano RN, Sallie esophagitis, hh, esophageal dilation Colonoscopy (083009941). CE - Cataract extraction ([id number]). Procedure on back (371847157). Social History Social & Psychosocial Habits Alcohol 09/09/2023 Risk Assessment: Denies Alcohol Use Substance Abuse 09/09/2023 Risk Assessment: Denies Substance Abuse Tobacco 09/09/2023 Risk Assessment: Denies Tobacco Use 09/24/2023 Tobacco Use: Former smoker, quit more, Marijuana Smokeless tobacco use: Never Type: Cigarettes Smoking Cessation Yes . Objective He is in no acute distress. Afebrile vital signs are stable. Abdomen is soft and nontender. No masses are palpable. Penis is a normal phallus. Scrotum reveals 2 normal testicles. Impression and Plan Impression: #1. This gentleman has severe bladder outlet obstructive symptoms despite maximal medications and a severely damaged bladder with an obstructing prostate. He needs to get opened up. Plan: #1. We are getting him scheduled for a cystoscopy and transurethral resection of the prostate. We are going to forego urodynamics due to his severe bladder damage endoscopically and his significant clinical symptoms despite maximal medications. Normal [facility] Comment on above: Result Comment: Elec tronically Signed By: RAMON CHARLES, Luiz Chambers\Date and Time Signed: 11/04/23 09:31 EST [facility] echo transthoracicon [facility] echo transthoracic [facility] [place] [address] Echocardiogram Signed Patient: Trey Figueroa Sr MR#: [id number] : 1950 Acct:[id number] Age/Sex: 73 / M ADM Date: 10/24/23 Loc: Room: Type: [facility] Attending Dr: Wood Moeller DO Ordering Provider: Conchis Beckwith DO Date of Service: 10/24/23 [facility] echo transthoracic: Diastolic dysfunction Copies to: DO Americo Matthews MD Ordering Physician: Conchis Beckwith Height: 77 in Referring Physician: Conchis Beckwith Weight: 317 lb Performed By: Rafia Chang RDCS BSA: 2.7 m2 HR: 75 Reason For Study: Diastolic dysfunction History: Arrhythmia, DM, Hyperlipidiemia, HTN, Shingles, Former Smoker, Previous Substance Abuse, Ascending Aortic Aneurysm Interpretation Summary Moderate concentric left ventricular hypertrophy. The LV ejection fraction is low normal . Septal motion is consistent with conduction abnormality. A variety of Doppler measurements indicate pseudonormalized left ventricular relaxation, which is associated with grade II/IV or mild to moderate diastolic dysfunction. Doppler findings do not suggest pulmonary hypertension. Compared to prior study, there is no significant change. Procedure/Quality: A two-dimensional transthoracic echocardiogram with color flow and Doppler was performed. The study was technically adequate with some images being suboptimal in quality. Left Ventricle: Moderate concentric left ventricular hypertrophy. The LV ejection fraction is low normal . A variety of Doppler measurements indicate pseudonormalized left ventricular relaxation, which is associated with grade II/IV or mild to moderate diastolic dysfunction. Septal motion is consistent with conduction abnormality. Left Atrium: The left atrium appears normal in size. The atrial septum appears normal. Right Atrium: The right atrium appears normal in size. Right Ventricle: The right ventricular size, thickness and function are normal. Aortic Valve: The aortic valve is normal in structure and function. No hemodynamically significant valvular aortic stenosis. Mitral Valve: The mitral valve is mildly sclerotic. There is trace mitral regurgitation. Tricuspid Valve: There is mild tricuspid regurgitation. Doppler findings do not suggest pulmonary hypertension. Arteries: The aortic root is not well visualized but is probably normal size. No obvious aortic dissection could be visualized. Pericardium/Pleura: No pericardial effusion seen. There is no pleural effusion. IVC/Hepatic Viens: The IVC is normal in size with an inspiratory collapse of greater then 50%, suggesting normal right atrial pressure. Measurements with Normals IVSd: 1.8 cm (0.7-1.1 cm)LVIDd: 4.3 cm (3.7-5.4 cm) LVPWd: 1.3 cm (0.7-1.1 cm)LVIDs: 3.3 cm (2.3-3.6 cm) LA dimension: 3.4 cm (2.3-4.0 cm)Ao root diam: 4.4 cm(2.0-3.6 cm) asc Aorta Diam: 4.2 cm(2.1-3.4cm) Doppler with Normals RVSP(TR): 29.3 mmHg (18-35mmHg) LV V1 max: 67.3 cm/sec (0.7-1.7m/s)MV E max joanne: 44.6 cm/sec(0.8-1.3m/s) MV A max joanne: 72.0 cm/sec(0.0-0.0m/s) MV E/A: 0.62 (<1.5) MMode/2D Measurements Calculations TAPSE: 1.8 cm FS: 23.2 % Ao root area: LVOT diam: 2.4 cm RV S Joanne: EDV(Teich): 15.2 cm2 LVOT area: 4.5 cm2 11.1 cm/sec 81.8 ml ESV(Teich): 43.5 ml EF(Teich): 46.8 % __ LVLd ap4: 8.9 cm SV(MOD-sp4): LAV(MOD-sp4): LA A2 area: 14.0 cm2 EDV(MOD-sp4): 59.5 ml 54.2 ml 124.0 ml LAV(MOD-sp2): LA A4 area: 18.6 cm2 LVLs ap4: 7.8 cm 36.1 ml LA length (vol): ESV(MOD-sp4): 5.0 cm 64.5 ml LA vol: 43.9 ml EF(MOD-sp4): 48.0 % LA vol index: 16.2 ml/m2 Doppler Measurements Calculations MV dec time: E/E' lat: 5.5 MV dec slope: Ao V2 max: 0.20 sec E/E' med: 8.9 91.2 cm/sec 224.1 cm/sec2 Ao max P.3 mmHg Ao mean P.1 mmHg Ao V2 mean: 70.3 cm/sec Ao V2 VTI: 16.9 cm KAMRON(I,D): 3.2 cm2 KAMRON(V,D): 3.3 cm2 __ LV V1 max PG: TV max PG: TR max joanne: 1.8 mmHg 26.0 mmHg 256.5 cm/sec LV V1 mean PG: TR max P.3 mmHg 1.2 mmHg RAP systole: 3.0 mmHg LV V1 mean: 52.2 cm/sec LV V1 VTI: 12.0 cm Transcribed By: SCV Performed At: 10/24/23 1235 Signed By: Americo Norman MD 10/24/23 1741 [facility] XR chest 2V*on 10-24-2023 XR chest 2V* [place] [address] XRay Report Signed Patient: Trey Figueroa MR#: [id number] : 1950 Acct:[id number] Age/Sex: 73 / M ADM Date: 10/24/23 Loc: Room: Type: [facility] Attending Dr: Wood Moeller DO Copies to: DO Wood Matthews DO Ordering Provider: Conchis Beckwith DO Date of Service: 10/24/23 XR/XR chest 2V*: Acute cough Plain film chest Single view HISTORY: Shortness of breath with exertion COMPARISON: 07/30/23 FINDINGS: SUPPORT DEVICES: None POSTSURGICAL CHANGES: Stable HEART: Within normal limits PULMONARY JESSIE: Within normal limits MEDIASTINUM: Unremarkable LUNGS AND PLEURA: No acute lung process, pleural effusion or pneumothorax identified. Hyperinflation redemonstrated. BONY STRUCTURES: Thoracic spondylosis. ADDITIONAL FINDINGS None XR/XR chest 2V* IMPRESSION: No acute process. Impression dictated by: Augusto Munoz M.D.10/24/2023 1:38 PM Dictation Location: [place] [address] Transcribed By: [facility] 10/24/23 1338 Dictated By: Augusto Munoz DO 10/24/23 1331 Signed By: 10/24/23 1338 Normal [facility] Lab Reportson 09-25-2023 Lab Reports [id number] Normal [facility] RAD - CT Reporton 09-25-2023 RAD - CT Report [id number]#[id number] Normal [facility] Screenson 09-25-2023 Screens [id number]#[id number] Normal [facility] Urology Office/Clinic Noteon 09-25-2023 Urology Office/Clinic Note Chief Complaint 8 month follow up HPI Staff 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 S/P cystoscopy on 02/12/23. Several requests made to his PCP for PSA but was not able to obtain, per last encounter Dysuria: somewhat pain and burning Incomplete bladder emptying: yes, Pt states it takes about 3-5 mins to empty his bladder Hematuria: denies visible blood Frequency: every 20 mins Urgency: yes Nocturia: once a night Stream: slow stream towards the end Leaking: denies Post void dripping: denies Wearing pads/ Depends: denies Urge incontinence: very seldom Stress incontinence: denies Incontinence without Sensory Awareness: denies Abdominal pain: denies Flank pain: denies History of Present Illness staff HPI reviewed and agree. Review of Systems PHQ Score Initial Depression Screen Score: 0 no fever, chills, malaise, myalgia. no rash/lesions. no chest pain, palpitations, or SOB. no abdominal pain, nausea, vomiting. no unilateral calf swelling, redness, pain Physical Exam Vitals & Measurements HR: 63(Peripheral) BP: 113/73 General: nontoxic, NAD. in wheelchair. 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 1. BPH with obstruction/lower urinary tract symptoms (N40.1: Benign prostatic hyperplasia with lower urinary tract symptoms) S/p Cysto 02/12/[address] Jurado, note unclear (mentions normal prostate, moderate hypertrophy, and 'fairly large' prostate in different places within the note which isn't super clear). does mention moderate trabeculation of bladder. no b.t. UCx 02/12/23 - Serratia marcescens, tx'd w/ Levaquin 500mg qd x7d FISH/cytology 02/13/23 - neg for high grade urothelial carcinoma. CT AP 02[place]14/23 [facility] [place]ulated bladder, prostatomegaly, no stones or hydro. Taking Dutasteride 0.5mg qd and Terazosin 20mg qd. UA today negative for blood and infection. Reports severe LUTS, very bothersome. progressively worsening over the past few years. Voids every 20min. Stream slows toward the end. Has urgency with water exposure. has to strain at times. does not feel like he empties. Discussed different operative interventions such as TURP, versus less invasive options such as Rezum or Urolift, depending on prostate size and shape. Educational pamphlets provided. Discussed a repeat cysto to evaluate the prostate since scope note from earlier this year is unclear. -Will schedule cystoscopy w PRW. The risks and benefits for cystoscopy have been discussed. The risks include bleeding, infection, and irritation of the bladder and urinary channel, among others. The patient, after being informed of procedural details and after questions have been answered, wishes to proceed. Full informed consent has been obtained. Will order Local anesthesia. 2. Urinary retention (R33.9: Retention of urine, unspecified) BMP 07/30/23 - BUN 17. Cr 1.49. GFR >60. Does not feel he empties completely, takes 3-5min to empty. Leaks and dribbles only after voiding. PVR today 376 cc. Advised pt that this level of retention is dangerous and recommended baxter catheter placement (pt unable to perform CIC, does not have the dexterity for it). Pt refused. I explained that he could end up with infection, damage to bladder, damage to kidneys, even . Pt verbalizes understanding. Does not want cath. Only thing he's willing to do is have the scope and discuss possible prostate outlet procedure. I explained that he may likely require a cath after one of those procedures and he replies we will figure that out at that time but it's not happening today. 3. Screening PSA (prostate specific antigen) (Z12.5: Encounter for screening for malignant neoplasm of prostate) Most recent PSA 05/06/20 - 0.500 No other recent PSAs found. Will have blood drawn IO today for PSA. 4. 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 Total time spent reviewing previous notes/results/external documents, preparing the chart, conducting the encounter with the patient and family, ordering tests/medications, and documenting the encounter was 40 minutes. Follow-up With When Contact Information LAISHA CAVAZOS, TAYLER Zacarias, URL [address] [place] [address] [phone] Additional Instructions: sched cysto Patient Education Benign Prostatic Hyperplasia Documentation recorded by the elanibdeann Mabry accurately reflects the services(s) I performed and decisions made by me. Authenticated by Tayler Myers PA-C on 09/25/2023 13:44:23. Lizzette Gibson, personally scribed for Tayler Myers PA-C on 09/24/2023 15:44:27. . Problem List/Past (more content not included)... Normal [facility] Comment on above: Result Comment: Elec tronically Signed By: TAYLER MYERS PA-C\.br\Date and Time Signed: 09/25/23 13:45 EDT\.br\Electronically Co-Signed By: Lizzette Mabry\.br\Date and Time Co-Signed: 09/24/23 15:45 EDT Ambulatory Visit Summaryon 1 Ambulatory Visit Summary TREY FIGUEROA :1950 Visit Date:09/24/2023 Ambulatory Visit Instructions Your Diagnosis BPH with obstruction/lower urinary tract symptoms Urinary retention Screening PSA (prostate specific antigen) Aspirin long-term use Tests Performed Urnls Dip Stick Auto w/o Microscopy POC 97635 Your Care Team Attending Physician - TAYLER MYERS PA-C Primary Care Physician - MERCHANT CHARLES, WILLARD This Is Your Medications List Contact prescribing physician if questions or concerns albuterol (Albuterol (Eqv-ProAir HFA)) amitriptyline (amitriptyline 150 mg Tab) aspirin (aspirin 81 mg Oral EC Tab) atorvastatin (atorvastatin 40 mg Tab) dicyclomine (dicyclomine 20 mg Tab) dutasteride (dutasteride 0.5 mg Cap) emollients, topical (Neosalus topical cream) fluticasone (Flovent HFA 110 Inhaler) hydrochlorothiazide (hydrochlorothiazide 25 mg Tab) insulin aspart (NovoLOG 100 units/mL injectable solution) insulin glargine (Lantus 100 units/mL Injection-Insulin) losartan (losartan 25 mg Tab) meloxicam (meloxicam 15 mg oral tablet) nitroglycerin (Nitro 0.4 mg Tab) omeprazole (omeprazole 40 mg Cap-DR) terazosin (terazosin 10 mg Cap) tizanidine (tiZANidine 4 mg Tab) tramadol (traMADOL 50 mg Tab) Procedures Performed Esophagogastroduodenoscopy (08/15/2023), CE - Cataract extraction, Colonoscopy, Procedure on back. Discharge Vitals Heart Rate (Peripheral) 63 Blood Pressure 113/73 What to do next Scheduled Follow-Up Appointments Friday 12:30 PM EST Where: [facility] You Need to Schedule the Following Appointments Follow Up with TAYLER MYERS PA-C, URL When: Where: [address] [place] [address] [phone] Medications What How Much When Why Instructions Unchanged albuterol (Albuterol (Eqv-ProAir HFA)) 2 Puffs Inhalation Every 6 hours as needed for as needed for wheezing Contact prescribing physician if questions or concerns Unchanged amitriptyline (amitriptyline 150 mg Tab) 1 Tablets By Mouth Once a day (at bedtime) Contact prescribing physician if questions or concerns Unchanged aspirin (aspirin 81 mg Oral EC Tab) 1 Tablets By Mouth Every day Contact prescribing physician if questions or concerns Unchanged atorvastatin (atorvastatin 40 mg Tab) 1 Tablets By Mouth At bedtime Contact prescribing physician if questions or concerns Unchanged dicyclomine (dicyclomine 20 mg Tab) 1 Tablets By Mouth 4 times a day Contact prescribing physician if questions or concerns Unchanged dutasteride (dutasteride 0.5 mg Cap) 1 Capsules By Mouth Every day Contact prescribing physician if questions or concerns Unchanged emollients, topical (Neosalus topical cream) 1 Application Topical 2 times a day as needed for for dry skin Contact prescribing physician if questions or concerns Unchanged fluticasone (Flovent HFA 110 Inhaler) 2 Puffs Inhalation 2 times a day Contact prescribing physician if questions or concerns Unchanged hydrochlorothiazide (hydrochlorothiazide 25 mg Tab) 1 Tablets By Mouth Every day Contact prescribing physician if questions or concerns Unchanged insulin aspart (NovoLOG 100 units/ mL injectable solution) 11 Units Subcutaneous Before meals Hold this medication until your glucose levels are 200 or higher Contact prescribing physician if questions or concerns Unchanged insulin glargine (Lantus 100 units/ mL Injection-Insulin) 41 Units Subcutaneous Once a day (at bedtime) HOLD this medication if your glucose level is less than 200 Contact prescribing physician if questions or concerns Unchanged losartan (losartan 25 mg Tab) 1 Tablets By Mouth Every day Contact prescribing physician if questions or concerns Unchanged meloxicam (meloxicam 15 mg oral tablet) 1 Tablets By Mouth Every day Contact prescribing physician if questions or concerns Unchanged nitroglycerin (Nitro 0.4 mg Tab) 1 Tablets Sublingual Every 5 minutes as needed for Chest pain Contact prescribing physician if questions or concerns Unchanged omeprazole (omeprazole 40 mg Cap-DR) 1 Capsules By Mouth Every day Non-cardiac chest pain Dysphagia Esophageal spasm Duration: 90 Days Contact prescribing physician if questions or concerns Unchanged terazosin (terazosin 10 mg Cap) 2 Capsules By Mouth Once a day (at bedtime) Contact prescribing physician if questions or concerns Unchanged tizanidine (tiZANidine 4 mg Tab) 1 Tablets By Mouth Every 8 hours as needed for Spasm Contact prescribing physician if questions or concerns Unchanged tramadol (traMADOL 50 mg Tab) 2 Tablets By Mouth Every day as needed for for pain Contact prescribing physician if questions or concerns Test Results Urnls Dip Stick Auto w/o Microscopy POC 51014 (09/24/2023) Bilirubin Urine Dipstick - Negative Blood Urine Dipstick - Negative Glucose Urine Dipstick - Negative Ketones Urine Dipstick - Negative Leukocytes Urine Dipstick - Negative Nitrite Urine Dipstick - Negati (more content not included)... Normal [facility] Ambulatory Visit Summary TREY FIGUEROA :1950 Visit Date:09/24/2023 Ambulatory Visit Instructions Your Diagnosis BPH with obstruction/lower urinary tract symptoms Urinary retention Screening PSA (prostate specific antigen) Aspirin long-term use Tests Performed Urnls Dip Stick Auto w/o Microscopy POC 03892 Your Care Team Attending Physician - TAYLER MYERS PA-C Primary Care Physician - LUIS ALBERTO AGUIRRE MDOUSH This Is Your Medications List Contact prescribing physician if questions or concerns albuterol (Albuterol (Eqv-ProAir HFA)) amitriptyline (amitriptyline 150 mg Tab) aspirin (aspirin 81 mg Oral EC Tab) atorvastatin (atorvastatin 40 mg Tab) dicyclomine (dicyclomine 20 mg Tab) dutasteride (dutasteride 0.5 mg Cap) emollients, topical (Neosalus topical cream) fluticasone (Flovent HFA 110 Inhaler) hydrochlorothiazide (hydrochlorothiazide 25 mg Tab) insulin aspart (NovoLOG 100 units/mL injectable solution) insulin glargine (Lantus 100 units/mL Injection-Insulin) losartan (losartan 25 mg Tab) meloxicam (meloxicam 15 mg oral tablet) nitroglycerin (Nitro 0.4 mg Tab) omeprazole (omeprazole 40 mg Cap-DR) terazosin (terazosin 10 mg Cap) tizanidine (tiZANidine 4 mg Tab) tramadol (traMADOL 50 mg Tab) Procedures Performed Esophagogastroduodenoscopy (08/15/2023), CE - Cataract extraction, Colonoscopy, Procedure on back. Discharge Vitals Heart Rate (Peripheral) 63 Blood Pressure 113/73 What to do next Scheduled Follow-Up Appointments Friday 12:30 PM EST Where: [facility] You Need to Schedule the Following Appointments Follow Up with LAISHA CAVAZOS, LEDY SANDHU When: Where: [address] [place] [address] [phone] Medications What How Much When Why Instructions Unchanged albuterol (Albuterol (Eqv-ProAir HFA)) 2 Puffs Inhalation Every 6 hours as needed for as needed for wheezing Contact prescribing physician if questions or concerns Unchanged amitriptyline (amitriptyline 150 mg Tab) 1 Tablets By Mouth Once a day (at bedtime) Contact prescribing physician if questions or concerns Unchanged aspirin (aspirin 81 mg Oral EC Tab) 1 Tablets By Mouth Every day Contact prescribing physician if questions or concerns Unchanged atorvastatin (atorvastatin 40 mg Tab) 1 Tablets By Mouth At bedtime Contact prescribing physician if questions or concerns Unchanged dicyclomine (dicyclomine 20 mg Tab) 1 Tablets By Mouth 4 times a day Contact prescribing physician if questions or concerns Unchanged dutasteride (dutasteride 0.5 mg Cap) 1 Capsules By Mouth Every day Contact prescribing physician if questions or concerns Unchanged emollients, topical (Neosalus topical cream) 1 Application Topical 2 times a day as needed for for dry skin Contact prescribing physician if questions or concerns Unchanged fluticasone (Flovent HFA 110 Inhaler) 2 Puffs Inhalation 2 times a day Contact prescribing physician if questions or concerns Unchanged hydrochlorothiazide (hydrochlorothiazide 25 mg Tab) 1 Tablets By Mouth Every day Contact prescribing physician if questions or concerns Unchanged insulin aspart (NovoLOG 100 units/ mL injectable solution) 11 Units Subcutaneous Before meals Hold this medication until your glucose levels are 200 or higher Contact prescribing physician if questions or concerns Unchanged insulin glargine (Lantus 100 units/ mL Injection-Insulin) 41 Units Subcutaneous Once a day (at bedtime) HOLD this medication if your glucose level is less than 200 Contact prescribing physician if questions or concerns Unchanged losartan (losartan 25 mg Tab) 1 Tablets By Mouth Every day Contact prescribing physician if questions or concerns Unchanged meloxicam (meloxicam 15 mg oral tablet) 1 Tablets By Mouth Every day Contact prescribing physician if questions or concerns Unchanged nitroglycerin (Nitro 0.4 mg Tab) 1 Tablets Sublingual Every 5 minutes as needed for Chest pain Contact prescribing physician if questions or concerns Unchanged omeprazole (omeprazole 40 mg Cap-DR) 1 Capsules By Mouth Every day Non-cardiac chest pain Dysphagia Esophageal spasm Duration: 90 Days Contact prescribing physician if questions or concerns Unchanged terazosin (terazosin 10 mg Cap) 2 Capsules By Mouth Once a day (at bedtime) Contact prescribing physician if questions or concerns Unchanged tizanidine (tiZANidine 4 mg Tab) 1 Tablets By Mouth Every 8 hours as needed for Spasm Contact prescribing physician if questions or concerns Unchanged tramadol (traMADOL 50 mg Tab) 2 Tablets By Mouth Every day as needed for for pain Contact prescribing physician if questions or concerns Test Results Urnls Dip Stick Auto w/o Microscopy POC 02605 (09/24/2023) Bilirubin Urine Dipstick - Negative Blood Urine Dipstick - Negative Glucose Urine Dipstick - Negative Ketones Urine Dipstick - Negative Leukocytes Urine Dipstick - Negative Nitrite Urine Dipstick - Negati (more content not included)... Normal [facility] Ambulatory Visit Summary TREY FIGUEROA :1950 Visit Date:09/24/2023 Ambulatory Visit Instructions Your Diagnosis BPH with obstruction/lower urinary tract symptoms Urinary retention Screening PSA (prostate specific antigen) Aspirin long-term use Tests Performed Urnls Dip Stick Auto w/o Microscopy POC 34433 Your Care Team Attending Physician - LAISHA CAVAZOS, TAYLER Zacarias Primary Care Physician - MERCHANT CHARLES, WILLARD This Is Your Medications List Contact prescribing physician if questions or concerns albuterol (Albuterol (Eqv-ProAir HFA)) amitriptyline (amitriptyline 150 mg Tab) aspirin (aspirin 81 mg Oral EC Tab) atorvastatin (atorvastatin 40 mg Tab) dicyclomine (dicyclomine 20 mg Tab) dutasteride (dutasteride 0.5 mg Cap) emollients, topical (Neosalus topical cream) fluticasone (Flovent HFA 110 Inhaler) hydrochlorothiazide (hydrochlorothiazide 25 mg Tab) insulin aspart (NovoLOG 100 units/mL injectable solution) insulin glargine (Lantus 100 units/mL Injection-Insulin) losartan (losartan 25 mg Tab) meloxicam (meloxicam 15 mg oral tablet) nitroglycerin (Nitro 0.4 mg Tab) omeprazole (omeprazole 40 mg Cap-DR) terazosin (terazosin 10 mg Cap) tizanidine (tiZANidine 4 mg Tab) tramadol (traMADOL 50 mg Tab) Procedures Performed Esophagogastroduodenoscopy (08/15/2023), CE - Cataract extraction, Colonoscopy, Procedure on back. Discharge Vitals Heart Rate (Peripheral) 63 Blood Pressure 113/73 What to do next Scheduled Follow-Up Appointments Friday 12:30 PM EST Where: [facility] You Need to Schedule the Following Appointments Follow Up with TAYLER MYERS PA-C, URL When: Where: [address] [place] [address] [phone] Medications What How Much When Why Instructions Unchanged albuterol (Albuterol (Eqv-ProAir HFA)) 2 Puffs Inhalation Every 6 hours as needed for as needed for wheezing Contact prescribing physician if questions or concerns Unchanged amitriptyline (amitriptyline 150 mg Tab) 1 Tablets By Mouth Once a day (at bedtime) Contact prescribing physician if questions or concerns Unchanged aspirin (aspirin 81 mg Oral EC Tab) 1 Tablets By Mouth Every day Contact prescribing physician if questions or concerns Unchanged atorvastatin (atorvastatin 40 mg Tab) 1 Tablets By Mouth At bedtime Contact prescribing physician if questions or concerns Unchanged dicyclomine (dicyclomine 20 mg Tab) 1 Tablets By Mouth 4 times a day Contact prescribing physician if questions or concerns Unchanged dutasteride (dutasteride 0.5 mg Cap) 1 Capsules By Mouth Every day Contact prescribing physician if questions or concerns Unchanged emollients, topical (Neosalus topical cream) 1 Application Topical 2 times a day as needed for for dry skin Contact prescribing physician if questions or concerns Unchanged fluticasone (Flovent HFA 110 Inhaler) 2 Puffs Inhalation 2 times a day Contact prescribing physician if questions or concerns Unchanged hydrochlorothiazide (hydrochlorothiazide 25 mg Tab) 1 Tablets By Mouth Every day Contact prescribing physician if questions or concerns Unchanged insulin aspart (NovoLOG 100 units/ mL injectable solution) 11 Units Subcutaneous Before meals Hold this medication until your glucose levels are 200 or higher Contact prescribing physician if questions or concerns Unchanged insulin glargine (Lantus 100 units/ mL Injection-Insulin) 41 Units Subcutaneous Once a day (at bedtime) HOLD this medication if your glucose level is less than 200 Contact prescribing physician if questions or concerns Unchanged losartan (losartan 25 mg Tab) 1 Tablets By Mouth Every day Contact prescribing physician if questions or concerns Unchanged meloxicam (meloxicam 15 mg oral tablet) 1 Tablets By Mouth Every day Contact prescribing physician if questions or concerns Unchanged nitroglycerin (Nitro 0.4 mg Tab) 1 Tablets Sublingual Every 5 minutes as needed for Chest pain Contact prescribing physician if questions or concerns Unchanged omeprazole (omeprazole 40 mg Cap-DR) 1 Capsules By Mouth Every day Non-cardiac chest pain Dysphagia Esophageal spasm Duration: 90 Days Contact prescribing physician if questions or concerns Unchanged terazosin (terazosin 10 mg Cap) 2 Capsules By Mouth Once a day (at bedtime) Contact prescribing physician if questions or concerns Unchanged tizanidine (tiZANidine 4 mg Tab) 1 Tablets By Mouth Every 8 hours as needed for Spasm Contact prescribing physician if questions or concerns Unchanged tramadol (traMADOL 50 mg Tab) 2 Tablets By Mouth Every day as needed for for pain Contact prescribing physician if questions or concerns Test Results Urnls Dip Stick Auto w/o Microscopy POC 35668 (09/24/2023) Bilirubin Urine Dipstick - Negative Blood Urine Dipstick - Negative Glucose Urine Dipstick - Negative Ketones Urine Dipstick - Negative Leukocytes Urine Dipstick - Negative Nitrite Urine Dipstick - Negati (more content not included)... Normal [facility] Patient Educationon 09-24-20 23 Patient Education Urology Benign Prostatic Hyperplasia Benign prostatic hyperplasia (BPH) is an enlarged prostate gland that is caused by the normal aging process. The prostate may get bigger as a man gets older. The condition is not caused by cancer. The prostate is a walnut-sized gland that is involved in the production of semen. It is located in front of the rectum and below the bladder. The bladder stores urine. The urethra carries stored urine out of the body. An enlarged prostate can press on the urethra. This can make it harder to pass urine. The buildup of urine in the bladder can cause infection. Back pressure and infection may progress to bladder damage and kidney (renal) failure. What are the causes? This condition is part of the normal aging process. However, not all men develop problems from this condition. If the prostate enlarges away from the urethra, urine flow will not be blocked. If it enlarges toward the urethra and compresses it, there will be problems passing urine. What increases the risk? This condition is more likely to develop in men older than 50 years. What are the signs or symptoms? Symptoms of this condition include: ? Getting up often during the night to urinate. ? Needing to urinate frequently during the day. ? Difficulty starting urine flow. ? Decrease in size and strength of your urine stream. ? Leaking (dribbling) after urinating. ? Inability to pass urine. This needs immediate treatment. ? Inability to completely empty your bladder. ? Pain when you pass urine. This is more common if there is also an infection. ? Urinary tract infection (UTI). How is this diagnosed? This condition is diagnosed based on your medical history, a physical exam, and your symptoms. Tests will also be done, such as: ? A post-void bladder scan. This measures any amount of urine that may remain in your bladder after you finish urinating. ? A digital rectal exam. In a rectal exam, your health care provider checks your prostate by putting a lubricated, gloved finger into your rectum to feel the back of your prostate gland. This exam detects the size of your gland and any abnormal lumps or growths. ? An exam of your urine (urinalysis). ? A prostate specific antigen (PSA) screening. This is a blood test used to screen for prostate cancer. ? An ultrasound. This test uses sound waves to electronically produce a picture of your prostate gland. Your health care provider may refer you to a specialist in kidney and prostate diseases (urologist). How is this treated? Once symptoms begin, your health care provider will monitor your condition (active surveillance or watchful waiting). Treatment for this condition will depend on the severity of your condition. Treatment may include: ? Observation and yearly exams. This may be the only treatment needed if your condition and symptoms are mild. ? Medicines to relieve your symptoms, including: ? Medicines to shrink the prostate. ? Medicines to relax the muscle of the prostate. ? Surgery in severe cases. Surgery may include: ? Prostatectomy. In this procedure, the prostate tissue is removed completely through an open incision or with a laparoscope or robotics. ? Transurethral resection of the prostate (TURP). In this procedure, a tool is inserted through the opening at the tip of the penis (urethra). It is used to cut away tissue of the inner core of the prostate. The pieces are removed through the same opening of the penis. This removes the blockage. ? Transurethral incision (TUIP). In this procedure, small cuts are made in the prostate. This lessens the prostate's pressure on the urethra. ? Transurethral microwave thermotherapy (TUMT). This procedure uses microwaves to create heat. The heat destroys and removes a small amount of prostate tissue. ? Transurethral needle ablation (TUNA). This procedure uses radio frequencies to destroy and remove a small amount of prostate tissue. ? Interstitial laser coagulation (ILC). This procedure uses a laser to destroy and remove a small amount of prostate tissue. ? Transurethral electrovaporization (TUVP). This procedure uses electrodes to destroy and remove a small amount of prostate tissue. ? Prostatic urethral lift. This procedure inserts an implant to push the lobes of the prostate away from the urethra. Follow these instructions at home: ? Take [id number]-[id number] and prescription medicines only as told by your health care provider. ? Monitor your symptoms for any changes. Contact your health care provider with any changes. ? Avoid drinking large amounts of liquid before going to bed or out in public. ? Avoid or reduce how much caffeine or alcohol you drink. ? Give yourself time when you urinate. ? Keep all follow-up visits. This is important. Contact a health care provider if: ? You have unexplained back pain. ? Your symptoms do not get better with treatment. ? You develop side effects from the medicine (more content not included)... Normal [facility] Consent for Procedure/Surger laura 09-10-2023 Consent for Procedure/Surgery [id number] [facility] Reminderson 09-10-2023 Reminders - From: Bailee Felton To: [facility] - Reminders/Recalls; Sent: 09/10/2023 10:23:58 EDT Show up: 10/31/2024 10:23:00 EST Subject: Ambulatory Reminder Due Date/Time: 12/01/2024 10:23:00 EST Reminder/Recall Entered by Bailee Felton on September 10, 2023 10:23:19 EDT patient had colon done by dr. blancas 12/27/2019.. colon recall 12/27/2024 From: Meera CHARLES, Maegan Varner To: Bailee Felton; Sent: 09/09/2023 14:22:54 EDT Subject: General Message Caller Name: HENRY TREY Adams; Caller Number: , colonoscopy 2024 [facility] Ambulatory Visit Summaryon 1 Ambulatory Visit Summary EDWIN FIGUEROAAMANDA Angie :1950 Visit Date:09/09/2023 Ambulatory Visit Instructions Your Diagnosis Dysphagia Esophageal spasm Non-cardiac chest pain Your Care Team Attending Physician - Maegan Estes MD Primary Care Physician - MERCHANT CHARLES, [facility] This Is Your Medications List albuterol (Albuterol (Eqv-ProAir HFA)) amitriptyline (amitriptyline 150 mg Tab) aspirin (aspirin 81 mg Oral EC Tab) atorvastatin (atorvastatin 40 mg Tab) cephalexin (Keflex 500 mg Cap) dicyclomine (dicyclomine 20 mg Tab) dutasteride (dutasteride 0.5 mg Cap) emollients, topical (Neosalus topical cream) fluticasone (Flovent HFA 110 Inhaler) hydrochlorothiazide (hydrochlorothiazide 25 mg Tab) insulin aspart (NovoLOG 100 units/mL injectable solution) insulin glargine (Lantus 100 units/mL Injection-Insulin) losartan (losartan 25 mg Tab) meloxicam (meloxicam 15 mg oral tablet) nitroglycerin (Nitro 0.4 mg Tab) omeprazole (omeprazole 40 mg Cap-DR) terazosin (terazosin 10 mg Cap) tizanidine (tiZANidine 4 mg Tab) tramadol (traMADOL 50 mg Tab) Procedures Performed Esophagogastroduodenoscopy (08/15/2023), CE - Cataract extraction, Colonoscopy, Procedure on back. Discharge Vitals Heart Rate (Peripheral) 70 Respiratory Rate 16 Blood Pressure 130/80 Height 198 cm Height 78 in What to do next Scheduled Follow-Up Appointments Friday 2:40 PM EDT With: TAYLER MYERS PA-C Where: [facility] Gastroenterology Office/Clin ic Noteon 09-09-2023 Gastroenterology Office/Clinic Note Chief Complaint f/u EGD - c/o lump sensation in throat HPI Staff Patient is a 73 year old male who presents today for a follow up to EGD on 08/15/23 w/Dr. Estes. Denies dysphagia and esophageal spasms. Still has lump sensation in throat. Last visit 07/28/23 w/Dr. Estes: 1. Dysphagia (R13.10: Dysphagia, unspecified) We will start with EGD with empiric dilation, will do manometry as well given the concern of spasms in the past Only taking aspirin 2. Esophageal spasm (K22.4: Dyskinesia of esophagus) Manometry and EGD as above Repeat colonoscopy in 2024 EGD: 1. Mild Schatzki ring was noted at the GE junction. Dilation was performed using TTS balloon 18-19-20 mm, dilation was perfumed to 20 mm with moderate resistance. Minimal mucosal disruption was noted post dilation. 2. Moderate hiatal hernia. 3. Severe LA grade D esophagitis with at least 8 cm above the GE junction. I could not rule out Wood's disease given the inflammation 4. No gross lesions in the stomach or examined duodenum Repeat EGD in 3 months. History of Present Illness Doing well, dysphagia resolved completely after Schatzki ring dilation with TTS to 20 He was not sure if he is taking omeprazole after the procedure Denies any heartburn Continues to have intermittent globus sensation No odynophagia, no other risk factors Review of Systems PHQ Score Initial Depression Screen Score: 0 Physical Exam Vitals & Measurements HR: 70(Peripheral) RR: 16 BP: 130/80 HT: 78 in HT: 198 cm General: in Nad Abdomen: Soft, NTND Assessment/Plan 1. Dysphagia (R13.10: Dysphagia, unspecified) Due to Schatzki ring, dilated with TTS 18-19-20 mm, to 20 mm resolved Start omeprazole 40 mg daily before breakfast Dilate as needed Repeat EGD in 3 months given the esophagitis to rule out Wood's esophagus 2. Esophageal spasm (K22.4: Dyskinesia of esophagus) Resolved Colonoscopy 2024 Follow-up No qualifying data available Problem List/Past Medical History Ongoing Arthritis BPH with obstruction/lower urinary tract symptoms Diabetes Heart disease Heart murmur Hypertension Liver disease Urge incontinence Historical No qualifying data Procedure/Surgical History Esophagogastroduodenoscopy (08/15/2023), CE - Cataract extraction, Colonoscopy, Procedure on back. Medications Albuterol (Eqv-ProAir HFA), 2 puff(s), Inhalation, q6hr, PRN amitriptyline 150 mg Tab, 150 mg= 1 tab(s), Oral, Once a day (at bedtime) aspirin 81 mg Oral EC Tab, 81 mg= 1 tab(s), Oral, Daily atorvastatin 40 mg Tab, 40 mg= 1 tab(s), Oral, Bedtime dicyclomine 20 mg Tab, 20 mg= 1 tab(s), Oral, QID dutasteride 0.5 mg Cap, 0.5 mg= 1 cap(s), Oral, Daily Flovent HFA 110 Inhaler, 2 puff(s), Inhalation, BID hydrochlorothiazide 25 mg Tab, 25 mg= 1 tab(s), Oral, Daily Keflex 500 mg Cap, 500 mg= 1 cap(s), Oral, Daily, Not taking Lantus 100 units/mL Injection-Insulin, 41 unit(s), SubCutaneous, Once a day (at bedtime) losartan 25 mg Tab, 25 mg= 1 tab(s), Oral, Daily meloxicam 15 mg oral tablet, 15 mg= 1 tab(s), Oral, Daily, Not taking Neosalus topical cream, 1 marc, Topical, BID, PRN Nitro 0.4 mg Tab, 1 tab(s), SubLingual, q5min, PRN NovoLOG 100 units/mL injectable solution, 11 unit(s), SubCutaneous, TIDAC omeprazole 40 mg Cap-DR, 40 mg= 1 cap(s), Oral, Daily, 2 refills omeprazole 40 mg Cap-DR, 40 mg= 1 cap(s), Oral, BID, 3 refills terazosin 10 mg Cap, 20 mg= 2 cap(s), Oral, Once a day (at bedtime) tiZANidine 4 mg Tab, 4 mg= 1 tab(s), Oral, q8hr, PRN traMADOL 50 mg Tab, 100 mg= 2 tab(s), Oral, Daily, PRN Allergies No Known Medication Allergies Social History Alcohol - Denies Alcohol Use, 02/15/2022 Substance Abuse - Denies Substance Abuse, 02/15/2022 Tobacco - Denies Tobacco Use, 02/15/2022 Former smoker, quit more than 30 days ago Tobacco Use:. Cigarettes, Yes, 09/09/2023 Family History Heart disease: Father. Immunizations Vaccine Date Status Comments influenza virus vaccine, inactivated 03/11/2022 Recorded influenza virus vaccine, inactivated - Not Given Patient Refuses SARS-CoV-2 (COVID-19) Ad26 vaccine - Not Given Postpone due to refusal diphtheria/pertussis, acel/tetanus adult 06/14/2021 Recorded SARS-CoV-2 (COVID-19) Ad26 vaccine 05/04/2021 Recorded influenza virus vaccine, inactivated 02/20/2021 Recorded diphtheria/pertussis, acel/tetanus adult 03/07/2020 Recorded Normal [facility] Comment on above: Result Comment: Elec tronically Signed By: Meera CHARLES, Maegan Varner\.br\Date and Time Signed: 09/09/23 14:24 EDT IntraOperative Documentson 0 08-27-2023 IntraOperative Documents [id number]#1.00CD:127 Normal [facility] Postoperative Documentson Postoperative Documents [id number]#1.00CD:127 Normal [facility] Consenton 08-18-2023 Consent [id number]#1.00CD:127 Normal [facility] Discharge Instructionson Discharge Instructions [id number]#1.00CD:127 [facility] Main OR Intraoperative Recor don 08-18-2023 Main OR Intraoperative Record IntraOp Document Type FT Summary Primary Physician: Maegan Estes MD Finalized Date/Time: 08/18/23 10:41:30 Pt. Name: HENRYTREY/Sex: 1950 Male Med Rec #: [id number] Physician: Maegan Estes MD Financial #: [id number] Pt. Type: O Room/Bed: Endo 03/31 Admit/Disch: 08/15/23 11:32:49 - 08/15/23 23:59:59 Institution: Case Times FT Entry 1 Patient Times In Room 08/15/23 14:02:00 Out Room 08/15/23 14:19:00 Procedure Times Start 08/15/23 14:07:00 Stop 08/15/23 14:15:00 Anesthesia Times Start 08/15/23 14:02:00 Stop 08/15/23 14:19:00 Last Modified By: Melissa Camarillo RN 08/15/23 14:21:17 General Comments: 08/18/23 Chart opened to review and send charges LRoth CSFA Case Attendance FT Entry 1 Entry 2 Entry 3 Case Attendee Melissa Camarillo RN, Micala E Sarmini MD, Muhammad Talal Role Performed Prekindergarten Teacher - Primary Scrub - Primary Surgeon - Primary Time In 08/15/23 14:02:00 08/15/23 14:02:00 08/15/23 14:02:00 Time Out 08/15/23 14:19:00 08/15/23 14:19:00 08/15/23 14:19:00 Procedure EGD(.) EGD(.) EGD(.) Comments Last Modified By: Melissa Camarillo RN, RN, Melissa Yao RN 08/15/23 14:21:20 08/15/23 14:21:20 08/15/23 14:21:20 Entry 4 Case Attendee Gold Lozada Jr, DO Role Performed Anesthesiologist of Record Time In 08/15/23 14:02:00 Time Out 08/15/23 14:19:00 Procedure EGD(.) Comments Last Modified By: Melissa Camarillo RN 08/15/23 14:21:20 Perioperative Protocols FT Pre-Care Text: Implements protective measures prior to operative or invasive procedure, confirms identity before the operative or invasive procedure, verifies operative procedure, surgical site, and laterality Entry 1 Procedure(s) EGD(.) Patient Identity Birthday, ID Band Verified (select at Check, Patient least 2): Participation Consents / H and P Anesthesia Consent, Operative Site N/A Verified HandP, Surgery/Procedure Marking Verified Consent Surgical Site No Laterality Verified n/a Verified Procedure Verified Yes Correct Patient Yes Position Verified Availability Equipment, Medication Prep Dry n/a Verified (If Applicable) PreOp Antibiotic No Time Out Jose Luis Camp, Given Participants Maegan Estes MD, Marsh Jr DO, James A, Melissa Camarillo RN Time Out Complete 08/15/23 14:04:00 Outcomes Met? Yes Last Modified By: Melissa Camarillo RN 08/15/23 14:04:52 Post-Care Text: The patient is free from signs and symptoms of injury caused by extraneous objects Allergy Information FT Pre-Care Text: Verifies allergies Entry 1 Allergies Reviewed? Yes Allergies Reviewed Self/Patient With Outcomes Met? Yes Last Modified By: Melissa Camarillo RN 08/15/23 14:04:58 Post-Care Text: The patient received appropriate medication(s) safely administered during the perioperative period Surgical Procedures FT Entry 1 Procedure Description Procedure EGD Modifiers . Surgeon Description EGD with esophageal balloon dilation. Primary Procedure Yes Primary Surgeon Maegan Estes MD Start 08/15/23 14:07:00 Stop 08/15/23 14:15:00 Anesthesia Type General Surgical Service Gastroenterology Wound Class 2 - Clean-Contaminated Last Modified By: Melissa Camarillo RN 08/15/23 14:16:03 General Case Data FT Pre-Care Text: Classifies surgical wound, implements aseptic technique, initiates traffic control Entry 1 Case Information OR ENDO 1 FT Case Level Level 2 Wound Class 2 - Clean-Contaminated Specialty Gastroenterology ASA Class 3 Preop Diagnosis DYSPHAGIA AND ESOPHAGEAL Postop Same As Preop No Postop Diagnosis Large esophageal Outcomes Met? Yes ulcers, edematous submucosal hemorrhage, mild schatzki ring, severe esophagitis Last Modified By: Melissa Camarillo RN 08/15/23 14:15:25 Post-Care Text: The patient is free from signs and symptoms of infection Skin Assessment (Pre Procedure) FT Pre-Care Text: Implements protective measures to prevent skin/ tissue injury due to thermal or mechanical sources Evaluates for signs and symptoms of physical injury to skin and tissue Entry 1 Skin Integrity Intact, [place], Warm, and Skin Abnormality No Dry Outcomes Met? Yes Last Modified By: Melissa Camarillo RN 08/15/23 14:06:49 Post-Care Text: The patient is free from signs and symptoms of injury caused by extraneous objects Patient Positioning FT Pre-Care Text: Identifies physical alterations that require additional precautions for procedure-specific positioning, verifies presence of prosthetics or corrective devices, positions the patient, evaluates the patient for signs and symptoms of injury as a result of positioning Entry 1 Procedure EGD(.) Body Position Lateral, right side up Feet Uncrossed? Yes Left Arm Position Resting at Side Right Arm Position Resting at Side Left Leg Position Extended Right Leg Position Extended Positioning Devic (more content not included)... Normal [facility] Progress Note-Physicianon Progress Note-Physician Patient: TREY FIGUEROA Age: 73 years Sex: Male : 1950 Associated Diagnoses: None Author: Gold Lozada Jr, DO Preoperative Information Anesthesia Preop Info: Time patient last ate or drank 08/15/2023 00:00:00. Anesthesia history: Patient history: None. Family history+: None. Informed consent: Signed by patient. Re-evaluation prior to induction: Initial evaluation reviewed: No significant change. Review of Systems Eye: Negative except as documented in history of present illness. Ear/Nose/Mouth/Throat: Negative except as documented in history of present illness. Respiratory: Negative except as documented in history of present illness. Cardiovascular: Negative except as documented in history of present illness. Musculoskeletal: Negative except as documented in history of present illness. Neurologic: Negative except as documented in history of present illness. Health Status Allergies: Allergic Reactions (Selected) No Known Medication Allergies Problem list: All Problems Arthritis / SNOMED CT 0288196 / Confirmed At risk for falls / SNOMED CT 528238396 / Possible Problem added when Risk for Falls Careplan was initiated. BPH with obstruction/lower urinary tract symptoms / SNOMED CT 8292877935 / Confirmed Diabetes / SNOMED CT 700314188 / Confirmed Liver disease / SNOMED CT 309153468 / Confirmed Heart disease / SNOMED CT 04284960 / Confirmed Heart murmur / SNOMED CT 331104592 / Confirmed Hypertension / SNOMED CT 8676267475 / Confirmed Urge incontinence / SNOMED CT 574042332 / Confirmed Histories Procedure history: Colonoscopy (177033160). CE - Cataract extraction ([id number]). Procedure on back ([id number]). Social History Social & Psychosocial Habits Alcohol 02/15/2022 Risk Assessment: Denies Alcohol Use Substance Abuse 02/15/2022 Risk Assessment: Denies Substance Abuse Tobacco 02/15/2022 Risk Assessment: Denies Tobacco Use 07/28/2023 Tobacco Use: Former smoker, quit more Type: Cigarettes Smoking Cessation Yes . Physical Examination Airway: Mallampati classification: II (soft palate, fauces, uvula visible). Respiratory: adequate air exchange. Cardiovascular: Regular rhythm. Plan [place] [employer]hesi[employer] (ASA) physical status classification: Class III. Anesthetic Preoperative Plan: Anesthesia General. Normal [facility] Comment on above: Result Comment: Elec tronically Signed By: Gold Lozada Jr, DO\.br\Date and Time Signed: 08/16/23 09:16 EDT Progress Note-Physician Patient: TREY FIGUEROA Age: 73 years Sex: Male : 1950 Associated Diagnoses: None Author: Gold Lozada Jr, DO Postoperative Information Postoperative disposition: Postoperative disposition: To PACU. Optimetrix number: Optimetrix number [phone]. Anesthetic utilized: General. Health Status Allergies: Allergic Reactions (Selected) No Known Medication Allergies Physical Examination Vital Signs 08/15/2023 15:00 EDT Heart Rate Monitored 80 bpm Respiratory Rate Monitored 24 br/min Systolic Blood Pressure 133 mmHg Diastolic Blood Pressure 71 mmHg SpO2 98 % 08/15/2023 14:50 EDT Heart Rate Monitored 77 bpm Respiratory Rate Monitored 20 br/min Systolic Blood Pressure 133 mmHg Diastolic Blood Pressure 71 mmHg SpO2 98 % 08/15/2023 14:35 EDT Heart Rate Monitored 85 bpm Respiratory Rate Monitored 20 br/min Systolic Blood Pressure 103 mmHg Diastolic Blood Pressure 61 mmHg SpO2 98 % 08/15/2023 14:30 EDT Heart Rate Monitored 79 bpm Respiratory Rate Monitored 14 br/min Systolic Blood Pressure 107 mmHg Diastolic Blood Pressure 76 mmHg SpO2 96 % 08/15/2023 14:25 EDT Heart Rate Monitored 82 bpm Respiratory Rate Monitored 18 br/min Systolic Blood Pressure 115 mmHg Diastolic Blood Pressure 62 mmHg SpO2 96 % 08/15/2023 14:24 EDT Temperature Temporal Artery 36.4 DegC Heart Rate Monitored 86 bpm Respiratory Rate Monitored 18 br/min Systolic Blood Pressure 116 mmHg Diastolic Blood Pressure 78 mmHg SpO2 96 % Pain Assessment: Controlled. General: Awake, Alert, Appropriate. Respiratory: Adequate air exchange. Cardiovascular: Stable, Normal peripheral perfusion. Neurological: Normal sensory function, Normal motor function. Assessment Anesthetic outcome No anesthetic complications noted. Adequate pain relief. able to void without difficulty, able to ambulate with assist, tolerating PO intake, no N/V. Review / Management Condition: Stable. Plan Transfer/Discharge: Transfer/Discharge Discharge when meets criteria ( To home ). Normal [facility] Comment on above: Result Comment: Elec tronically Signed By: Gold Lozada Jr, DO\.br\Date and Time Signed: 08/16/23 09:15 EDT Consent for Treatmenton 08-01 Consent for Treatment [id number]#[id number]:127 Normal [facility] Discharge Instructionson Discharge Instructions TREY FIGUEROA :1950 Visit Date:08/15/2023 Inpatient Discharge Instructions Your Care Team Admitting Physician - Maegan Estes MD Referring Physician - Meera CHARLES, Maegan Varner Reason for Your Visit DYSPHAGIA AND ESOPHAGEAL Your Diagnosis Dysphagia This Is Your Medications List albuterol (Albuterol (Eqv-ProAir HFA)) amitriptyline (amitriptyline 150 mg Tab) aspirin (aspirin 81 mg Oral EC Tab) atorvastatin (atorvastatin 40 mg Tab) cephalexin (Keflex 500 mg Cap) dicyclomine (dicyclomine 20 mg Tab) dutasteride (dutasteride 0.5 mg Cap) emollients, topical (Neosalus topical cream) fluticasone (Flovent HFA 110 Inhaler) hydrochlorothiazide (hydrochlorothiazide 25 mg Tab) insulin aspart (NovoLOG 100 units/mL injectable solution) insulin glargine (Lantus 100 units/mL Injection-Insulin) losartan (losartan 25 mg Tab) meloxicam (meloxicam 15 mg oral tablet) nitroglycerin (Nitro 0.4 mg Tab) omeprazole (omeprazole 40 mg Cap-DR) omeprazole (omeprazole 40 mg Cap-DR) terazosin (terazosin 10 mg Cap) tizanidine (tiZANidine 4 mg Tab) tramadol (traMADOL 50 mg Tab) Procedure History CE - Cataract extraction, Colonoscopy, Procedure on back. Discharge Vitals Temperature (Temporal Artery) 36.4 ?C Heart Rate (Monitored) 82 Respiratory Rate 18 Blood Pressure 115/62 Height 188 cm Weight 143.7 kg BMI 40.66 What to do next Instructions From Your Doctor Event Name Event Result Discharge Activity Resume normal activities in 24 hours Discharge Restrictions No driving for 24 hrs Discharge Diet(s) Other: Start with clear liquids, advance as tolerated, avoid retching today Call Your Doctor For Persistent or heavy bleeding Pharmacy Information [facility] [place] Discharge Instructions Discharge Instructions Previously Scheduled Follow-Up Appointments 2022 3:00 PM EDT With: TAYLER MYERS PA-C Where: [facility] Comment on above: Result Comment: Elec tronically Signed By: Ankita NORTON, Sallie\.br\Date and Time Signed: 08/15/23 14:33 EDT Endoscopic Procedure Report - Otheron 08-15-2023 Endoscopic Procedure Report - Other Patient: TREY FIGUEROA Age: 73 years Sex: Male : 1950 Associated Diagnoses: None Author: Maegan Estes MD Pre-Procedure Procedure Date 08/15/2023 14:20:00 . Procedure Type: Esophagogastroduodenoscopy with dilation of esophagus with balloon less than 30 mm. Procedure provider Performed by Maegan Estes MD. Current history and physical Documented on chart. Informed Consent After discussing the rationale, risks and benefits, and alternatives to this procedure, the patient provided signed consent for the procedure. Pre-procedure diagnosis: Dysphagia . Medications Anticoagulant/antiplatelet None. ASA Classification: Class II. . Monitoring: See anesthesia record. . Anticoagulation use: Procedure The procedure was performed in the hospital. See anesthesia record for sedation given during procedure. The patient was positioned starting in the left lateral decubitus position and with safety measures. Endoscope type used was an adult-size, introduced orally, advanced to the 3rd portion of the duodenum. No difficulty was encountered during the procedure. Views were excellent. The patient tolerated the procedure well. Extent reached: Duodenum third portion Findings 1. Mild Schatzki ring was noted at the GE junction. Dilation was performed using TTS balloon 18-19-20 mm, dilation was perfumed to 20 mm with moderate resistance. Minimal mucosal disruption was noted post dilation. 2. Moderate hiatal hernia. 3. Severe LA grade D esophagitis with at least 8 cm above the GE junction 4. No gross lesions in the stomach or examined duodenum Images Procedure images: Rec_hd_video_ __15_771.jpg Rec1_hd_video_ _19_36_[id number].jpg Rec1_hd_video_ __45_963.jpg Rec_hd_video_ _18_05_227.jpg Rec1_hd_video_3 _18_01_239.jpg Rec1_hd_video_2022__T13 _16_49_[id number].jpg Rec1_hd_video__3 _16_30_763.jpg Rec1_hd_video_2022__T13 _16_23_871.jpg Rec1_hd_video_2022__T13 _16_15_530.jpg Rec1_hd_video_2022__T13 _16_02_642.jpg Rec1_hd_video_2022__T13 _15_26_251.jpg Rec1_hd_video__T13 _14_59_291.jpg Rec1_hd_video__T13 _14_50_012.jpg Rec1_hd_video__T13 _14_36_483.jpg Rec1_hd_video__T13 _14_20_053.jpg Rec1_hd_video__T13 _13_10_722.jpg . Post-Procedure Complications: none. Estimated blood loss: none. Specimens: None. Devices/ implants: none left in place. Impression and Plan 1. Mild Schatzki ring was noted at the GE junction. Dilation was performed using TTS balloon 18-19-20 mm, dilation was perfumed to 20 mm with moderate resistance. Minimal mucosal disruption was noted post dilation. 2. Moderate hiatal hernia. 3. Severe LA grade D esophagitis with at least 8 cm above the GE junction. I could not rule out Wood's disease given the inflammation 4. No gross lesions in the stomach or examined duodenum Recommendations: -Liquid then soft diet today, advance as tolerated tomorrow -Omeprazole 40 mg twice daily 30 minutes before breakfast and dinner -Follow-up in clinic in 1 to 2 weeks after discharge. -We will need to repeat EGD in 3 months to ensure esophagitis improvement, if no improvement will consider Nexium or other agents In addition the mucosa of the stomach was congested, snake like pattern with submucosal hemorrhage suggesting PHG, will need liver evaluation Normal [facility] Comment on above: Result Comment: Elec tronically Signed By: Meera CHARLES, Maegan Varner\.br\Date and Time Signed: 08/15/23 15:33 EDT Other Comment: Freida escobar Attachment - attachment storage system not supported [id number] Can be [facility] Attachment - attachment storage system not supported [id number] Can be viewed in source systemMissing Attachment - attachment storage system not supported [id number] Can be viewed in source systemMissing Attachment - attachment storage system not supported [id number] Can be [facility] Attachment - attachment storage system not supported [id number] Can be viewed in source systemMissing Attachment - attachment storage system not supported [id number] Can be viewed in source systemMissing Attachment - attachment storage system not supported [id number] Can be viewed in source systemMissing Attachment - attachment storage system not supported [id number] Can be viewed in source systemMissing Attachment - attachment storage system not supported [id number] Can be viewed in source systemMissing Attachment - attachment storage system not supported [id number] Can be viewed in source systemMissing Attachment - attachment storage system not supported [id number] Can be viewed in source systemMissing Attachment - attachment storage system not supported [id number] Can be viewed in source systemMissing Attachment - attachment storage system not supported [id number] Can be viewed in source systemMissing Attachment - attachment storage system not supported [id number] Can be viewed in source systemMissing Attachment - attachment storage system not supported [id number] Can be viewed in source systemMissing Attachment - attachment storage system not supported [id number] Can be viewed in source system Inpatient Patient Summaryon 08-15-2023 Inpatient Patient Summary [address] [address] [phone] [place] [address] Clinical Discharge Instructions PERSON INFORMATION Name: TREY FIGUEROA [facility]#:[id number] PHYSICIANS Admitting Physician: Maegan Estes MD Attending Physician: Maegan Estes MD PCP: MERCHANT CHARLES, WILLARD Discharge Diagnosis: Comment: PATIENT EDUCATION INFORMATION Instructions: Medication Leaflets: Follow up: Type Location Start Finish State U[facility] Office Visit [facility] DILAN Srivastava 09/25/2023 3:00 PM 09/25/2023 3:15 PM Confirmed MEDICATION LIST Medications to Continue Taking That Have Changed [id number], [id number] [place], [place] [phone], [phone] START: omeprazole (omeprazole 40 mg Cap-DR) 1 Capsules By Mouth 2 times a day. Refills: 3. Other Medications START: omeprazole (omeprazole 40 mg Cap-DR) 1 Capsules By Mouth every day. Refills: 2. Medications to Continue with No Changes Other Medications albuterol (Albuterol (Eqv-ProAir HFA)) 2 Puffs Inhalation every 6 hours as needed as needed for wheezing. amitriptyline (amitriptyline 150 mg Tab) 1 Tablets By Mouth once a day (at bedtime). aspirin (aspirin 81 mg Oral EC Tab) 1 Tablets By Mouth every day. atorvastatin (atorvastatin 40 mg Tab) 1 Tablets By Mouth at bedtime. cephalexin (Keflex 500 mg Cap) 1 Capsules By Mouth every day. Take 1 tablet day before procedure, and then 1 tablet 12 hrs later. Refills: 0. dicyclomine (dicyclomine 20 mg Tab) 1 Tablets By Mouth 4 times a day. dutasteride (dutasteride 0.5 mg Cap) 1 Capsules By Mouth every day., BPH emollients, topical (Neosalus topical cream) 1 Application Topical 2 times a day as needed for dry skin. fluticasone (Flovent HFA 110 Inhaler) 2 Puffs Inhalation 2 times a day. hydrochlorothiazide (hydrochlorothiazide 25 mg Tab) 1 Tablets By Mouth every day. insulin aspart (NovoLOG 100 units/mL injectable solution) 11 Units Subcutaneous before meals. Hold this medication until your glucose levels are 200 or higher. insulin glargine (Lantus 100 units/mL Injection-Insulin) 41 Units Subcutaneous once a day (at bedtime). HOLD this medication if your glucose level is less than 200. losartan (losartan 25 mg Tab) 1 Tablets By Mouth every day. Refills: 0. meloxicam (meloxicam 15 mg oral tablet) 1 Tablets By Mouth every day. nitroglycerin (Nitro 0.4 mg Tab) 1 Tablets Sublingual every 5 minutes as needed Chest pain. terazosin (terazosin 10 mg Cap) 2 Capsules By Mouth once a day (at bedtime). tizanidine (tiZANidine 4 mg Tab) 1 Tablets By Mouth every 8 hours as needed Spasm. tramadol (traMADOL 50 mg Tab) 2 Tablets By Mouth every day as needed for pain. Comment: Fortino [facility] Main OR PACU I Recordon 08-01 Main OR PACU I Record PACU Phase I Docum ent Type FT Summary Primary Physician: Maegan Estes MD Finalized Date/Time: 08/15/23 17:05:40 Pt. Name: TREY FIGUEROA/Sex: 1950 Male Med Rec #: [id number] Physician: Maegan Estes MD Financial #: [id number] Pt. Type: O Room/Bed: Endo 03/31 Admit/Disch: 08/15/23 11:32:49 - Institution: Case Times PACU I FT Pre-Care Text: Identifies barriers to communication and implements measures to provide psychological support Develops individualized plan of care, and ensures continuity of care Maintains patient's dignity and privacy, and maintains patient confidentiality Identifies and reports philosophical, cultural, and spiritual beliefs and values Identifies individual values and wishes concerning care Implements aseptic technique, and administers prescribed antibiotic therapy and immunizing agents as ordered Evaluates postoperative tissue perfusion Implements thermoregulation measures, and monitors body temperature Evaluates postoperative respiratory status Evaluates postoperative cardiac status Evaluates postoperative neurological status Assesses pain control, collaborated in initiating patient-controlled analgesia and implements alternative methods of pain control Verifies allergies, administers prescribed medications and solutions, evaluates response to medications Entry 1 In PACU I 08/15/23 14:24:00 Discharge from PACU 08/15/23 15:25:00 I Outcomes Met? Yes Last Modified By: Sallie Luciano RN 08/15/23 17:05:11 Post-Care Text: The patient demonstrates knowledge of the expected response to the operative or invasive procedure The patient's care is consistent with the individualized perioperative plan of care The patient's right to privacy is maintained The patient's value system, lifestyle, ethnicity, and culture are considered, respected, and incorporated into the perioperative plan of care The patient participates in decisions affecting his or her perioperative plan of care The patient is free from signs and symptoms of infection The patient has wound/tissue perfusion consistent with or improved from baseline levels established preoperatively The patient is at or returning to normothermia at the conclusion of the immediate postoperative period The patient's respiratory function is consistent with or improved from baseline levels established preoperatively The patient's cardiovascular status is consistent with or improved from baseline levels established preoperatively The patient's cardiovascular status is consistent with or improved from baseline levels established preoperatively The patient demonstrates and/or reports adequate pain control throughout the perioperative period The patient received appropriate medication(s), safely administered during the perioperative period Acuity Level PACU I FT Entry 1 Start Time 08/15/23 14:24:00 Stop Time 08/15/23 15:25:00 Acuity Level Acuity Level I Last Modified By: Sallie Luciano RN 08/15/23 17:05:34 General Comments: here longer due to transportation Finalized By: Sallie Luciano RN Document Signatures Signed By: Sallie Luciano RN 08/15/23 17:05 Normal [facility] Main OR Preoperative Recordo n 08-15-2023 Main OR Preoperative Record Holding Area Document Type FT Summary Primary Physician: Maegan Estes MD Finalized Date/Time: 08/15/23 12:05:02 Pt. Name: TREY FIGUEROA/Sex: 1950 Male Med Rec #: [id number] Physician: Maegan Estes MD Financial #: [id number] Pt. Type: O Room/Bed: Endo 03/31 Admit/Disch: 08/15/23 11:32:49 - Institution: Case Times Holding FT Pre-Care Text: Verifies consent for planned procedure, identifies individual values and wishes concerning care, includes family members in perioperative teaching Secures patient's records' belongings, and valuables, maintains patient's dignity and privacy, and maintains patient confidentiality Entry 1 In Holding 08/15/23 11:55:00 Outcomes Met? Yes Last Modified By: Pam Sherman RN 08/15/23 12:04:09 Post-Care Text: The patient participates in decisions affecting his or her perioperative plan of care The patient's right to privacy is maintained Surgery Checklist FT Entry 1 Patient Birthday, ID Band Procedure History and Physical, Identification: Check, Patient Verification: Surgical Consent, With Participation Patient NPO after Midnight: Yes Date/Time: 08/15/23 00:00:00 Personal Items: Jewelry Personal Items wheelchair, upper and Comment: lower dentures, watch, shoes Limitations: up with wheelchair Complaints of Pain: Yes Pain Comment: 07/10 back pain Operative Site n/a Marking: Marked By: n/a Availability Equipment Verified: Does Patient Smoke No Patient states Yes Comment - Adult Flor- friend postop adult Supervision supervision available Case Cancelled in No Holding Area see comments below for reason Last Modified By: Pam Sherman RN 08/15/23 12:05:00 Finalized By: Pam Sherman RN Document Signatures Signed By: Pam Sherman RN 08/15/23 12:05 Normal [facility] Monitor Recordon 08-15-2023 Monitor Record [id number]:127 Normal [facility] Monitor Record [id number]:127 Normal [facility] Outpatient Surgery Discharge Instructionon 08-15-2023 Outpatient Surgery Discharge Instruction [address] [address] Patient Discharge Instructions PERSON INFORMATION Name: TREY FIGUEROA Date of : 1950 Current Date: 08/15/2023 14:25:39 PHYSICIANS Admitting Physician: Meera CHARLES, Maegan Varner Discharge Diagnosis: TREY FIGUEROA has been given the following list of follow-up instructions, prescriptions, and patient education materials: PATIENT FOLLOW-UP INFORMATION Diet: Other: Start with clear liquids, advance as tolerated, avoid retching today Discharge Activity: Resume normal activities in 24 hours Discharge Restrictions: No driving for 24 hrs Call Your Doctor For: Persistent or heavy bleeding IF UNABLE TO CONTACT YOUR PHYSICIAN AND YOU FEEL IT IS AN EMERGENCY, GO TO THE NEAREST EMERGENCY ROOM OR CALL 911 HENRY Gibson EDWARD A, have received the attached patient education materials/instructions and have verbalized understanding: May we do a follow up call? Yes No I was present when discharge instructions were given ___ Patient Signature Date Clinican/Nurse Signature Date Follow up: Type Location Start Finish State [facility] Office Visit [facility] DILAN Srivastava 09/25/2023 3:00 PM 09/25/2023 3:15 PM Confirmed Pharmacy Information: [facility] Srivastava You may receive a survey from [employer] asking you to rate your care experience. Your feedback is important and will help us understand what we do well and how we can improve the quality of care we provide to you, your loved ones and our community. It?s an honor to serve you. Thank you for choosing [facility] HERE ARE THE MEDICATION CHANGES THAT OCCURRED DURING YOUR HOSPITAL STAY Medications to Continue Taking That Have Changed [id number], [id number] [phone], [phone] START: omeprazole (omeprazole 40 mg Cap-DR) 1 Capsules By Mouth 2 times a day. Refills: 3. Other Medications START: omeprazole (omeprazole 40 mg Cap-DR) 1 Capsules By Mouth every day. Refills: 2. Medications to Continue with No Changes Other Medications albuterol (Albuterol (Eqv-ProAir HFA)) 2 Puffs Inhalation every 6 hours as needed as needed for wheezing. amitriptyline (amitriptyline 150 mg Tab) 1 Tablets By Mouth once a day (at bedtime). aspirin (aspirin 81 mg Oral EC Tab) 1 Tablets By Mouth every day. atorvastatin (atorvastatin 40 mg Tab) 1 Tablets By Mouth at bedtime. cephalexin (Keflex 500 mg Cap) 1 Capsules By Mouth every day. Take 1 tablet day before procedure, and then 1 tablet 12 hrs later. Refills: 0. dicyclomine (dicyclomine 20 mg Tab) 1 Tablets By Mouth 4 times a day. dutasteride (dutasteride 0.5 mg Cap) 1 Capsules By Mouth every day., BPH emollients, topical (Neosalus topical cream) 1 Application Topical 2 times a day as needed for dry skin. fluticasone (Flovent HFA 110 Inhaler) 2 Puffs Inhalation 2 times a day. hydrochlorothiazide (hydrochlorothiazide 25 mg Tab) 1 Tablets By Mouth every day. insulin aspart (NovoLOG 100 units/mL injectable solution) 11 Units Subcutaneous before meals. Hold this medication until your glucose levels are 200 or higher. insulin glargine (Lantus 100 units/mL Injection-Insulin) 41 Units Subcutaneous once a day (at bedtime). HOLD this medication if your glucose level is less than 200. losartan (losartan 25 mg Tab) 1 Tablets By Mouth every day. Refills: 0. meloxicam (meloxicam 15 mg oral tablet) 1 Tablets By Mouth every day. nitroglycerin (Nitro 0.4 mg Tab) 1 Tablets Sublingual every 5 minutes as needed Chest pain. terazosin (terazosin 10 mg Cap) 2 Capsules By Mouth once a day (at bedtime). tizanidine (tiZANidine 4 mg Tab) 1 Tablets By Mouth every 8 hours as needed Spasm. tramadol (traMADOL 50 mg Tab) 2 Tablets By Mouth every day as needed for pain. PATIENT EDUCATION INFORMATION Instructions: Medication Leaflets: [facility] Patient Education - Texton 0 08-15-2023 Patient Education - Text Gastroenterology Upper Endoscopy, Adult, Care After This sheet gives you information about how to care for yourself after your procedure. Your health care provider may also give you more specific instructions. If you have problems or questions, contact your health care provider. What can I expect after the procedure? After the procedure, it is common to have: ? A sore throat. ? Mild stomach pain or discomfort. ? Bloating. ? Nausea. Follow these instructions at home: ? Follow instructions from your health care provider about what to eat or drink after your procedure. ? Return to your normal activities as told by your health care provider. Ask your health care provider what activities are safe for you. ? Take fsab-zhv-brhlxfa and prescription medicines only as told by your health care provider. ? If you were given a sedative during the procedure, it can affect you for several hours. Do not drive or operate machinery until your health care provider says that it is safe. ? Keep all follow-up visits as told by your health care provider. This is important. Contact a health care provider if you have: ? A sore throat that lasts longer than one day. ? Trouble swallowing. Get help right away if: ? You vomit blood or your vomit looks like coffee grounds. ? You have: ? A fever. ? Bloody, black, or tarry stools. ? A severe sore throat or you cannot swallow. ? Difficulty breathing. ? Severe pain in your chest or abdomen. Summary ? After the procedure, it is common to have a sore throat, mild stomach discomfort, bloating, and nausea. ? If you were given a sedative during the procedure, it can affect you for several hours. Do not drive or operate machinery until your health care provider says that it is safe. ? Follow instructions from your health care provider about what to eat or drink after your procedure. ? Return to your normal activities as told by your health care provider. This information is not intended to replace advice given to you by your health care provider. Make sure you discuss any questions you have with your health care provider. Document Revised: 09/22/2020 Document Reviewed: 04/19/2019 [employer] Patient Education ? 2022 [employer]. Esophagitis Esophagitis is inflammation of the esophagus. The esophagus is the tube that carries food from the mouth to the stomach. Esophagitis can cause soreness or pain in the esophagus. This condition can make it difficult and painful to swallow. What are the causes? Most causes of esophagitis are not serious. Common causes of this condition include: ? Gastroesophageal reflux disease (GERD). This is when stomach contents move back up into the esophagus (reflux). ? Repeated vomiting. ? An allergic reaction, especially caused by food allergies (eosinophilic esophagitis). ? Injury to the esophagus by swallowing large pills with or without water, or swallowing certain types of medicines. ? Swallowing harmful chemicals, such as household cleaning products. ? Drinking a lot of alcohol. ? An infection of the esophagus. This most often occurs in people who have a weakened immune system. ? Radiation or chemotherapy treatment for cancer. ? Certain diseases such as sarcoidosis, Crohn's disease, and scleroderma. What are the signs or symptoms? Symptoms of this condition include: ? Difficult or painful swallowing. ? Pain with swallowing acidic liquids, such as citrus juices. You may also have pain when you burp. ? Chest pain and difficulty breathing. ? Nausea and vomiting. ? Pain in the abdomen. ? Weight loss. ? Ulcers in the mouth and white patches in the mouth (candidiasis). ? Fever. ? Coughing up blood or vomiting blood. ? Stool that is black, tarry, or bright red. How is this diagnosed? This condition may be diagnosed based on your medical history and a physical exam. You may also have other tests, including: ? A test to examine your esophagus and stomach with a small flexible tube with a camera (endoscopy). ? A test that measures the acidity level in your esophagus. ? A test that measures how much pressure is on your esophagus. ? A barium swallow or modified barium swallow to show the shape, size, and functioning of your esophagus. ? Allergy tests. How is this treated? Treatment for this condition depends on the cause of your esophagitis. In some cases, steroids or other medicines may be given to help relieve your symptoms or to treat the underlying cause of your condition. You may have to make some lifestyle changes, such as: ? Avoiding alcohol. ? Quitting any products that contain nicotine or tobacco. These products include cigarettes, chewing tobacco, and vaping devices, such as e-cigarettes. If you need help quitting, ask your health care provider. ? Changing your diet. ? Exercising. ? Changing your sleep habits and your sleep environment. Follow these instr (more content not included)... Normal [facility] B-Type Natriuretic Peptideon 07-31-2023 Natriuretic peptide B (Bld) [Mass/Vol] 46.0 pg/mL Normal 5-100 [facility] Comment on above: Order Comment: COLLE CT WITH 0115 TROP Result Comment: PERF ORMED BY: [place] [address] PATHOLOGIST REEL SLITTER THERESA CHOUDHARY M.D. Performed By: #### B [employer] #### [address] Cholesterol [Mass/volume] in Serum or PlasmaOrdered By: Georgi Vargas on 07-31-2023 Cholesterol [Mass/Vol] 142 mg/dL 140-200 [facility] Comment on above: Chol less than 200 m g/dl low riskChol 201-239 mg/dl borderline riskChol 240 mg/dl and greater high risk Cholesterol in LDL Calc [Mas s/Vol]Ordered By: Georgi Vargas on 07-31-2023 Cholesterol in LDL [Mass/Vol] 68 mg/dL 0-100 [facility] Comment on above: LDL ATP III CLASSIFI CATIONLDL less than 100 mg/dL OptimalLDL 100-129 mg/dL Near or above optimalLDL 130-159 mg/dL Borderline highLDL 160-189 mg/dL HighLDL greater than 189 mg/dL Very high Cholesterol in VLDL Calc [Ma ss/Vol]Ordered By: Georgi Vargas on 07-31-2023 Cholesterol in VLDL [Mass/Vol] 33 mg/dL [facility] ECG 12 lead ECGon 07-31-2023 ECG 12 lead ECG [facility] [place] [address] [place] [address] Electrocardiograph Report Signed Patient: Trey Figueroa Sr MR#: [id number] : 1950 Acct:[id number] Age/Sex: 73 / M ADM Date: 07/30/23 Loc: Room: [address] [place] [address] Type: ADM INOo Attending Dr: Eryn Sands MD Ordering Provider: Georgi Vargas MD Date of Service: 07/31/23 ECG/ECG 12 lead ECG: chest pain Copies to: Test Reason : Blood Pressure : / mmHG Vent. Rate : 069 BPM Atrial Rate : 069 BPM P-R Int : 216 ms QRS Dur : 106 ms QT Int : 408 ms P-R-T Axes : 040 -36 039 degrees QTc Int : 437 ms Sinus rhythm with 1st degree AV block Left axis deviation Inferior infarct (cited on or before 14-DEC-2021) Cannot rule out Anterior infarct (cited on or before 19-MAY-2022) Abnormal ECG When compared with ECG of 30-JUL-2023 16:17, No significant change was found Confirmed by AUGUSTO GALLEGO DO ([id number]) on 07/31/2023 10:26:24 AM Referred By: Electronically Signed By:AUGUSTO GALLEGO DO Transcribed By: MUS Signed By Augusto Gallego DO 07/31 1026 [facility] Glucose Glucometer (BldC) [M ass/Vol]Ordered By: Georgi Vargas on 07-31-2023 Glucose [Mass/Vol] 201 mg/dL [facility] Comment on above: Random Glucose Refer ence Range is dependent on time and content of last meal. Glucose of more than 200 mg/dL in a nonstressed, ambulatory subject supports the diagnosis of Diabetes Mellitus. Glucose Poct Glucometerson 0 07-31-2023 Commemt1 Glu2: Cleaned Meter [facility] Comment on above: Result Comment: PERF ORMED BY: [facility] [address] [place] [address] PATHOLOGIST REEL SLITTER THERESA CHOUDHARY M.D. Performed By: #### G LULS #### Point of Care testing , Glucose [Mass/Vol] 201 mg/dL Normal [facility] Comment on above: Result Comment: [facility] Glucose Reference Range is dependent on time and content of last meal. Glucose of more than 200 mg/dL in a nonstressed, ambulatory subject supports the diagnosis of Diabetes Mellitus. Performed By: #### G FAWN #### Point of Care testing , Lipid Panelon 07-31-2023 Cholesterol [Mass/Vol] 142 mg/dL Normal 140-200 [facility] Comment on above: Result Comment: Chol less than 200 mg/dl low risk Chol 201-239 mg/dl borderline risk Chol 240 mg/dl and greater high risk Performed By: #### C OVID19 FLU RSV, CEPHEID NEG #### [facility] [address] [place] [address] [place] Cholesterol in HDL [Mass/Vol] 40 mg/dL Normal 23-92 [facility] Comment on above: Result Comment: HDL CHOL ATP-III CLASSIFICATION Cardiovascular Risk HDL > or equal to 60 mg/dL LOW HDL < 40 mg/dL HIGH Performed By: #### C OVID19 FLU RSV, CEPHEID NEG #### [facility] [address] Cholesterol.total/Chol esterol in HDL [Mass ratio] 3.6 {ratio} Normal <5.0 [facility] Comment on above: Result Comment: PERF ORMED BY: [place] [address] PATHOLOGIST REEL SLITTER THERESA CHOUDHARY M.D. Performed By: #### C OVID19 FLU RSV, CEPHEID NEG #### [facility] [address] LDL Cholesterol,Calculated 68 mg/dL Normal 0-100 [facility] Comment on above: Result Comment: LDL ATP III CLASSIFICATION LDL less than 100 mg/dL Optimal LDL 100-129 mg/dL Near or above optimal LDL 130-159 mg/dL Borderline high LDL 160-189 mg/dL High LDL greater than 189 mg/dL Very high Performed By: #### C OVID19 FLU RSV, CEPHEID NEG #### [facility] [address] [place] [id number] [place] Triglyceride w/Reflex 168 mg/dL High 0-149 [facility] Comment on above: Result Comment: TRIG ATP III CLASSIFICATION TRIG less than 150 mg/dL Normal TRIG 150-199 mg/dL Borderline high TRIG 200-500 mg/dL High TRIG greater than 500 mg/dL Very high Standard traceable to the Center for Disease Conrtrol and Prevention (CDC) test method. Performed By: #### C OVID19 FLU RSV, CEPHEID NEG #### [facility] [address] [place] [id number] [place] VLDL CHOLESTEROL 33 mg/dL Normal [facility] Comment on above: Performed By: #### C OVID19 FLU RSV, CEPHEID NEG #### [facility] [address] [place] [id number] [place] Natriuretic peptide B [Mass/ Vol]Ordered By: Georgi Vargas on 07-31-2023 Natriuretic peptide B (Bld) [Mass/Vol] 46.0 pg/mL 5-100 [facility] No Panel InformationOrdered By: Georgi Vargas on 07-31-2023 Bedside Glucose Comment Glu2: cleaned meter [facility] Serum or plasma high density lipoprotein (HDL) cholesterol measurementOrdered By: Georgi Vargas on 07-31-2023 Cholesterol in HDL [Mass/Vol] 40 mg/dL 23-92 [facility] Comment on above: HDL CHOL ATP-III CLA SSIFICATION Cardiovascular RiskHDL > or equal to 60 mg/dL LOWHDL < 40 mg/dL HIGH Serum or plasma total choles terol/high density lipoprotein (HDL) cholesterol mass ratOrdered By: Georgi Vargas on 07-31-2023 Cholesterol.total/Chol esterol in HDL [Mass ratio] 3.6 {ratio} <5.0 [facility] Triglyceride [Mass/volume] i n Serum or PlasmaOrdered By: Georgi Vargas on 07-31-2023 Triglyceride [Mass/Vol] 168 mg/dL 0-149 [facility] Comment on above: TRIG ATP III CLASSIF ICATIONTRIG less than 150 mg/dL NormalTRIG 150-199 mg/dL Borderline highTRIG 200-500 mg/dL High TRIG greater than 500 mg/dL Very highStandard traceable to the Center for Disease Conrtrol and Prevention (CDC) test method. Troponin I High Sensitivityo n 07-31-2023 Troponin I High Sensitivity 9.3 pg/mL Normal 0.0-20.0 [facility] Comment on above: Result Comment: PERF ORMED BY: [place] [address] PATHOLOGIST REEL SLITTER THERESA CHOUDHARY M.D. Performed By: #### H S TROP #### [facility] [address] [place] [address] [place] Troponin I High Sensitivity 8.8 pg/mL Normal 0.0-20.0 [facility] Comment on above: Order Comment: COLLE CT WITH 0115 TROP Result Comment: PERF ORMED BY: [place] [address] PATHOLOGIST REEL SLITTER THERESA CHOUDHARY M.D. Performed By: #### H S TROP #### [facility] [address] [place] [address] [place] Troponin I High Sensitivity 8.4 pg/mL Normal 0.0-20.0 [facility] Comment on above: Result Comment: PERF ORMED BY: [place] [address] PATHOLOGIST REEL SLITTER THERESA CHOUDHARY M.D. Performed By: #### H S TROP #### [facility] [address] [place] [address] [place] Troponin I High Sensitivity 8.9 pg/mL Normal 0.0-20.0 [facility] Comment on above: Result Comment: PERF ORMED BY: [place] [address] PATHOLOGIST REEL SLITTER THERESA CHOUDHARY M.D. Performed By: #### C OVID19 FLU RSV, CEPHEID NEG #### [facility] [address] [place] [address] [place] Troponin I.cardiac [Mass/vol ume] in Serum or Plasma by Detection limit <= 0.01 ng/Ordered By: Georgi Vargas on 07-31-2023 Troponin I.cardiac DL <= 0.01 ng/mL [Mass/Vol] 9.3 pg/mL 0.0-20.0 [facility] Activated partial thrombopla stin time (aPTT) in platelet poor plasma by coagulation aOrdered By: Rafael Broussard on 07-30-2023 aPTT Coag (PPP) [Time] 26.3 s 25.1-36.5 [facility] Alanine aminotransferase [En zymatic activity/volume] in Serum or PlasmaOrdered By: Rafael Broussard on 07-30-2023 ALT [Catalytic activity/Vol] 28 U/L 7-52 [facility] Albumin [Mass/volume] in Ser um or Plasma by Bromocresol green (BCG) dye binding methoOrdered By: Rafael Broussard on 07-30-2023 Albumin BCG dye [Mass/Vol] 3.7 g/dL 3.5-5.7 [facility] Alkaline phosphatase [Enzyma tic activity/volume] in Serum or PlasmaOrdered By: Rafael Broussard on 07-30-2023 ALP [Catalytic activity/Vol] 103 U/L 34-104 [facility] Aspartate aminotransferase [ Enzymatic activity/volume] in Serum or PlasmaOrdered By: Rafael Broussard on 07-30-2023 AST [Catalytic activity/Vol] 25 U/L 13-39 [facility] B-Type Natriuretic Peptideon 07-30-2023 Natriuretic peptide B (Bld) [Mass/Vol] 39.0 pg/mL Normal 5-100 [facility] Comment on above: Result Comment: PERF ORMED BY: [place] [address] PATHOLOGIST REEL SLITTER THERESA CHOUDHARY M.D. Performed By: #### B INSTALLMENT DEALER #### [address] Basic Metabolic Panelon 07-03 Anion gap [Moles/Vol] 9.3 mmol/L Normal 6.0-15.0 [facility] Comment on above: Performed By: #### C OVID19 FLU RSV, CEPHEID NEG #### [address] Calcium [Mass/Vol] 9.2 mg/dL Normal 8.6-10.3 [facility] Comment on above: Performed By: #### C OVID19 FLU RSV, CEPHEID NEG #### [facility] [address] [place] [address] [place] Chloride [Moles/Vol] 103 mmol/L Normal 98-107 [facility] Comment on above: Performed By: #### C OVID19 FLU RSV, CEPHEID NEG #### [facility] [address] [place] [address] [place] CO2 [Moles/Vol] 27.1 mmol/L Normal 21.0-31.0 [facility] Comment on above: Performed By: #### C OVID19 FLU RSV, CEPHEID NEG #### [facility] [address] [place] [address] [place] Creatinine [Mass/Vol] 1.49 mg/dL High 0.70-1.30 [facility] Comment on above: Performed By: #### C OVID19 FLU RSV, CEPHEID NEG #### [facility] [address] [place] [address] [place] Creatinine Clr Calc Pharmacy 67.24 [facility] Comment on above: Performed By: #### C OVID19 FLU RSV, CEPHEID NEG #### [facility] [address] [place] [address] [place] GFR/1.73 sq M.predicted MDRD (S/P/Bld) [Vol rate/Area] 48.638 mL/min/{1.73_m2} [facility] Comment on above: Performed By: #### C OVID19 FLU RSV, CEPHEID NEG #### [place] [address] [place] Glucose [Mass/Vol] 224 mg/dL High 70-100 [facility] Comment on above: Result Comment: [facility] Glucose Reference Range is dependent on time and content of last meal. Glucose of more than 200 mg/dL in a nonstressed, ambulatory subject supports the diagnosis of Diabetes Mellitus. ADA recommended reference range Performed By: #### C OVID19 FLU RSV, CEPHEID NEG #### [facility] [address] [place] [address] [place] Potassium [Moles/Vol] 4.4 mmol/L Normal 3.5-5.1 [facility] Comment on above: Performed By: #### C OVID19 FLU RSV, CEPHEID NEG #### [facility] [address] [place] [address] [place] Sodium [Moles/Vol] 135 mmol/L Low 136-145 [facility] Comment on above: Performed By: #### C OVID19 FLU RSV, CEPHEID NEG #### [facility] [address] [place] [address] [place] Urea nitrogen [Mass/Vol] 17 mg/dL Normal 7-25 [facility] Comment on above: Performed By: #### C OVID19 FLU RSV, CEPHEID NEG #### [facility] [address] [place] [address] [place] Basophils Auto (Bld) [#/Vol] Ordered By: Rafael Broussard on 07-30-2023 Basophils (Bld) [#/Vol] 0.1 10*3/uL 0.0-0.2 [facility] Basophils/100 WBC Auto (Bld) Ordered By: Rafael Broussard on 07-30-2023 Basophils/100 WBC (Bld) 0.8 % . [facility] Bilirubin.direct [Mass/volum e] in Serum or PlasmaOrdered By: Rafael Broussard on 07-30-2023 Bilirubin.direct [Mass/Vol] 0.00 mg/dL 0.03-0.18 [facility] Comment on above: If the DBIL is less than 0.1, IBIL is not able to becalculated. Bilirubin.total [Mass/volume ] in Serum or PlasmaOrdered By: Rafael Broussard on 07-30-2023 Bilirubin [Mass/Vol] 0.4 mg/dL 0.3-1.[address] [facility] [address] angio chest PE protocolon 07-30-2023 CT angio chest PE protocol [facility] [place] [address] [place] [address] CT Scan Report Signed Patient: Trey Figueroa Sr MR#: [id number] : 1950 Acct:[id number] Age/Sex: 73 / M ADM Date: 08/30/23 Loc: ER Room: Type: [facility] ER Attending Dr: Copies to: Rafael Broussard DO Ordering Provider: Rafael Broussard DO Date of Service: 07/30/23 CT/CT angio chest PE protocol: cp, dyspnea, recent surg CTA Chest with PE protocol TECHNIQUE: Axial imaging with 2-D and 3-D reconstruction. 90cc of Isovue-[address] exam was performed using one or more the following dose reduction techniques: Automated exposure control, adjustment of the MA and/or Kv according to patient size, or use of the iterative reconstruction technique. History: Midsternal chest pain. Left shoulder pain. Elevated d-dimer COMPARISON: None THYROID: Unremarkable TRACHEA AND BRONCHI: Patent ESOPHAGUS: Unremarkable. HEART: Within normal limits PERICARDIAL EFFUSION: None CORONARY ARTERY CALCIFICATION: None MEDIASTINUM: No adenopathy. No pneumoperitoneum. No mediastinal hematoma. PULMONARY JESSIE: No hilar mass or adenopathy is seen. THORACIC AORTA Unremarkable PULMONARY EMBOLUS: None LUNG NODULE None LUNGS: Lungs are clear PLEURAL EFFUSION: Done PNEUMOTHORAX: No pneumothorax seen. CHEST WALL: No abnormality AXILLA: Unremarkable BONY STRUCTURES thoracic spine degeneration postsurgical change. UPPER ABDOMEN: Images of the upper abdomen are noncontributory. CT/CT angio chest PE protocol IMPRESSION: No pulmonary embolus. No acute findings. Impression dictated by: Augusto Munoz M.D.07/30/2023 7:00 PM Dictation Location: [place] [address] Transcribed By: [facility] 07/30/231899 Dictated By: Augusto Munoz DO 07/30/231855 Signed By: 07/30/231899 Normal [facility] Calcium [Mass/volume] in Ser um or PlasmaOrdered By: Rafael Broussard on 07-30-2023 Calcium [Mass/Vol] 9.2 mg/dL 8.6-10.3 [facility] Carbon dioxide, total [Moles /volume] in Serum or PlasmaOrdered By: Rafael Broussard on 07-30-2023 CO2 [Moles/Vol] 27.1 mmol/L 21.0-31.0 [facility] Chloride [Moles/volume] in S kiran or PlasmaOrdered By: Rafael Broussard on 07-30-2023 Chloride [Moles/Vol] 103 mmol/L 98-107 [facility] Complete Blood Count Auto Di ffon 07-30-2023 Basophils (Bld) [#/Vol] 0.1 10*3/uL Normal 0.0-0.2 [facility] Comment on above: Result Comment: PERF ORMED BY: [place] [address] PATHOLOGIST REEL SLITTER THERESA CHOUDHARY M.D. Performed By: #### C OVID19 FLU RSV, CEPHEID NEG #### [address] Basophils/100 WBC (Bld) 0.8 % Normal . [facility] Comment on above: Performed By: #### C OVID19 FLU RSV, CEPHEID NEG #### [address] Eosinophils (Bld) [#/Vol] 0.2 10*3/uL Normal 0.0-0.45 [facility] Comment on above: Performed By: #### C OVID19 FLU RSV, CEPHEID NEG #### [address] Eosinophils/100 WBC (Bld) 3.1 % Normal . [facility] Comment on above: Performed By: #### C OVID19 FLU RSV, CEPHEID NEG #### [address] Erythrocyte distribution width (RBC) [Ratio] 14.2 % Normal 12.0-14.8 [facility] Comment on above: Performed By: #### C OVID19 FLU RSV, CEPHEID NEG #### [facility] [address] [place] [address] Hematocrit (Bld) [Volume fraction] 37.4 % Low 38.8-50.0 [facility] Comment on above: Performed By: #### C OVID19 FLU RSV, CEPHEID NEG #### [facility] [address] [place] [address] [place] Hemoglobin (Bld) [Mass/Vol] 12.5 g/dL Low 13.0-17.0 [facility] Comment on above: Performed By: #### C OVID19 FLU RSV, CEPHEID NEG #### [address] Lymphocytes (Bld) [#/Vol] 1.6 10*3/uL Normal 1.00-4.8 [facility] Comment on above: Performed By: #### C OVID19 FLU RSV, CEPHEID NEG #### [address] Lymphocytes/100 WBC (Bld) 21.1 % Normal . [facility] Comment on above: Performed By: #### C OVID19 FLU RSV, CEPHEID NEG #### [address] MCH (RBC) [Entitic mass] 28.8 pg Normal 27.5-35.2 [facility] Comment on above: Performed By: #### C OVID19 FLU RSV, CEPHEID NEG #### [address] MCV (RBC) [Entitic vol] 86.1 fL Normal 83.5-101 [facility] Comment on above: Performed By: #### C OVID19 FLU RSV, CEPHEID NEG #### [address] Mean Corpuscular HGB Conc 33.5 g/dL Normal 32.5-35.6 [facility] Comment on above: Performed By: #### C OVID19 FLU RSV, CEPHEID NEG #### [address] Monocytes (Bld) [#/Vol] 0.6 10*3/uL Normal 0.0-0.8 [facility] Comment on above: Performed By: #### C OVID19 FLU RSV, CEPHEID NEG #### [address] Monocytes/100 WBC (Bld) 18.25 % Normal 0.00-20.00 [facility] Comment on above: Performed By: #### C OVID19 FLU RSV, CEPHEID NEG #### [facility] [address] Monocytes/100 WBC (Bld) 8.2 % Normal . [facility] Comment on above: Performed By: #### C OVID19 FLU RSV, CEPHEID NEG #### [address] Neutrophils (Bld) [#/Vol] 4.9 10*3/uL Normal 1.8-7.7 [facility] Comment on above: Performed By: #### C OVID19 FLU RSV, CEPHEID NEG #### [address] Neutrophils/100 WBC (Bld) 66.8 % Normal . [facility] Comment on above: Performed By: #### C OVID19 FLU RSV, CEPHEID NEG #### [address] NRBC% 0.1 /100{WBC} Normal 0-0.5 [facility] Comment on above: Performed By: #### C OVID19 FLU RSV, CEPHEID NEG #### [address] Platelet mean volume (Bld) [Entitic vol] 6.7 fL Normal 6.6-10.1 [facility] Comment on above: Performed By: #### C OVID19 FLU RSV, CEPHEID NEG #### [place] [address] [place] Platelets (Bld) [#/Vol] 228 10*3/uL Normal 150-450 [facility] Comment on above: Performed By: #### C OVID19 FLU RSV, CEPHEID NEG #### [place] [address] [place] RBC (Bld) [#/Vol] 4.34 10*6/uL Normal 3.90-5.60 [facility] Comment on above: Performed By: #### C OVID19 FLU RSV, CEPHEID NEG #### [place] [address] [place] WBC (Bld) [#/Vol] 7.4 10*3/uL Normal 4.1-10.5 [facility] Comment on above: Performed By: #### C OVID19 FLU RSV, CEPHEID NEG #### [facility] [address] [place] [id number] [place] Creatine Kinaseon 07-30-2023 CK [Catalytic activity/Vol] 215 U/L Normal [facility] Comment on above: Performed By: #### B INSTALLMENT DEALER #### [place] [id number] [place] Creatine kinase [Enzymatic a ctivity/volume] in Serum or PlasmaOrdered By: Rafael Broussard on 07-30-2023 CK [Catalytic activity/Vol] 215 U/L [facility] Creatinine [Mass/volume] in Serum or PlasmaOrdered By: Rafael Broussard on 07-30-2023 Creatinine [Mass/Vol] 1.49 mg/dL 0.70-1.30 [facility] D-Dimer High Sensitivityon 0 07-30-2023 D-Dimer High Sensitivity 338 ng/mL High 0-243 [facility] Comment on above: Result Comment: The reference range for D-dimer is <243 ng/mL D-dimer units. D-dimer results must be used in conjunction with a clinical pretest probability (PTP) assessment model for deep vein thrombosis (DVT) and pulmonary embolism (PE). Results <230 ng/mL d-dimer units can be used as a negative predictor in patients with low or moderate probability for DVT/PE. Results above the exclusion threshold of 230 ng/ml D-dimer units for DVT/PE may indicate the need for further diagnostic testing. D-Dimer can be increased in hospitalized patients due to co-morbid conditions. PERFORMED BY: [place] [address] PATHOLOGIST REEL SLITTER THERESA CHOUDHARY M.D. Performed By: #### C OVID19 FLU RSV, CEPHEID NEG #### [place] [id number] [place] ECG 12 lead ECGon 07-30-2023 ECG 12 lead ECG [place] [address] Electrocardiograph Report Signed Patient: Trey Figueroa Sr MR#: [id number] : 1950 Acct:[id number] Age/Sex: 73 / M ADM Date: 07/30/23 Loc: Room: [address] [place] [address] Type: ADM INOo Attending Dr: Georgi Vargas MD Ordering Provider: Rafael Broussard DO Date of Service: 07/30/23 ECG/ECG 12 lead ECG: Chest Pain Copies to: Test Reason : Blood Pressure : 127/064 mmHG Vent. Rate : 071 BPM Atrial Rate : 071 BPM P-R Int : 228 ms QRS Dur : 110 ms QT Int : 424 ms P-R-T Axes : 026 -21 018 degrees QTc Int : 460 ms Sinus rhythm with 1st degree AV block Inferior infarct (cited on or before 14-DEC-2021) Confirmed by Rafael BROUSSARD DO ([id number]) on 07/30/2023 9:47:59 PM Referred By: Electronically Signed By:Rafael BROUSSARD DO Transcribed By: MUS Signed By Rafael Broussard DO 0 07/30/23 2148 Normal [facility] Eosinophils Auto (Bld) [#/Vo l]Ordered By: Rafael Broussard on 07-30-2023 Eosinophils (Bld) [#/Vol] 0.2 10*3/uL 0.0-0.45 [facility] Eosinophils/100 WBC Auto (Bl d)Ordered By: Rafael Broussard on 07-30-2023 Eosinophils/100 WBC (Bld) 3.1 % . [facility] Erythrocyte distribution wid th Auto (RBC) [Ratio]Ordered By: Rafael Broussard on 07-30-2023 Erythrocyte distribution width (RBC) [Ratio] 14.2 % 12.0-14.8 [facility] Globulin Calc (S) [Mass/Vol] Ordered By: Rafael Broussard on 07-30-2023 Globulin (S) [Mass/Vol] 3.2 g/dL [facility] Glucose [Mass/volume] in Ser um or PlasmaOrdered By: Rafael Broussard on 07-30-2023 Glucose [Mass/Vol] 224 mg/dL 70-100 [facility] Comment on above: ADA recommended refe rence rangeRandom Glucose Reference Range is dependent on time and content of last meal. Glucose of more than 200 mg/dL in a nonstressed, ambulatory subject supports the diagnosis of Diabetes Mellitus. Hematocrit Auto (Bld) [Volum e fraction]Ordered By: Rafael Broussard on 07-30-2023 Hematocrit (Bld) [Volume fraction] 37.4 % 38.8-50.0 [facility] Hemoglobin [Mass/volume] in BloodOrdered By: Rafael Broussard on 07-30-2023 Hemoglobin (Bld) [Mass/Vol] 12.5 g/dL 13.0-17.0 [facility] Hepatic Panelon 07-30-2023 Albumin [Mass/Vol] 3.7 g/dL Normal 3.5-5.7 [facility] Comment on above: Performed By: #### C OVID19 FLU RSV, CEPHEID NEG #### [facility] [address] [place] [address] [place] Albumin/Globulin [Mass ratio] 1.2 {ratio} Normal [facility] Comment on above: Performed By: #### C OVID19 FLU RSV, CEPHEID NEG #### [facility] [address] [place] [address] [place] ALP [Catalytic activity/Vol] 103 U/L Normal 34-104 [facility] Comment on above: Performed By: #### C OVID19 FLU RSV, CEPHEID NEG #### [facility] [address] [place] [id number] [place] ALT [Catalytic activity/Vol] 28 U/L Normal 7-52 [facility] Comment on above: Performed By: #### C OVID19 FLU RSV, CEPHEID NEG #### [facility] [address] [place] [id number] [place] AST [Catalytic activity/Vol] 25 U/L Normal 13-39 [facility] Comment on above: Performed By: #### C OVID19 FLU RSV, CEPHEID NEG #### [facility] [address] [place] [id number] [place] Bilirubin [Mass/Vol] 0.4 mg/dL Normal 0.3-1.0 [facility] Comment on above: Performed By: #### C OVID19 FLU RSV, CEPHEID NEG #### [facility] [address] Bilirubin,Indirect 0.4 mg/dL Normal [facility] Comment on above: Performed By: #### C OVID19 FLU RSV, CEPHEID NEG #### [facility] [address] Bilirubin.indirect [Mass/Vol] 0.00 mg/dL Low 0.03-0.18 [facility] Comment on above: Result Comment: If t he DBIL is less than 0.1, IBIL is not able to be calculated. Performed By: #### C OVID19 FLU RSV, CEPHEID NEG #### [address] Globulin (S) [Mass/Vol] 3.2 g/dL Normal [facility] Comment on above: Performed By: #### C OVID19 FLU RSV, CEPHEID NEG #### [address] Protein [Mass/Vol] 6.9 g/dL Normal 6.4-8.9 [facility] Comment on above: Performed By: #### C OVID19 FLU RSV, CEPHEID NEG #### [address] INR in Platelet poor plasma by Coagulation assayOrdered By: Rafael Broussard on 07-30-2023 INR Coag (PPP) [Relative time] 1.0 {INR} [facility] Comment on above: INR Therapeutic Rang e A) Pre- and Peroperative OAT started two weeks before surgery. NOT HIP SURGERY: 1.5 - 2.5 HIP SURGERY: 2 - 3B) Primary and secondary prevention of venous THROMBOSIS: 2 - 3C) Active venous thrombosis, pulmonary embolismand prevention of recurrent venous thrombosis: 2 - 3D) Prevention of arterial thromboembolismincluding patients with mechanical heart valves: 3 - 4.5 Laboratory - CoagulationOrde red By: Rafael Broussard on 07-30-2023 PT Coag (PPP) [Time] 11.8 s 9.0-12.9 [facility] Leukocytes [#/volume] correc natali for nucleated erythrocytes in Blood by Automated counOrdered By: Rafael Broussard on 07-30-2023 WBC corrected for nucl RBC Auto (Bld) [#/Vol] 7.4 10*3/uL 4.1-10.5 [facility] Lipaseon 07-30-2023 Lipase [Catalytic activity/Vol] 21.0 U/L Normal 11.0-82.0 [facility] Comment on above: Result Comment: PERF ORMED BY: [place] [address] PATHOLOGIST REEL SLITTER THERESA CHOUDHARY M.D. Performed By: #### B INSTALLMENT DEALER #### [address] Lipase [Enzymatic activity/v olume] in Serum or PlasmaOrdered By: Rafael Broussard on 07-30-2023 Lipase [Catalytic activity/Vol] 21.0 U/L 11.0-82.0 [facility] Lymphocytes Auto (Bld) [#/Vo l]Ordered By: Rafael Broussard on 07-30-2023 Lymphocytes (Bld) [#/Vol] 1.6 10*3/uL 1.00-4.8 [facility] Lymphocytes/100 WBC Auto (Bl d)Ordered By: Rafael Broussard on 07-30-2023 Lymphocytes/100 WBC (Bld) 21.1 % . [facility] MCH Auto (RBC) [Entitic mass ]Ordered By: Rafael Broussard on 07-30-2023 MCH (RBC) [Entitic mass] 28.8 pg 27.5-35.2 [facility] MCHC Auto (RBC) [Mass/Vol]Or dered By: Rafael Broussard on 07-30-2023 MCHC (RBC) [Mass/Vol] 33.5 g/dL 32.5-35.6 [facility] MCV Auto (RBC) [Entitic vol] Ordered By: Rafael Broussard on 07-30-2023 MCV (RBC) [Entitic vol] 86.1 fL 83.5-101 [facility] Monocyte distribution width [Entitic volume] in Blood by AutomatedOrdered By: Rafael Broussard on 07-30-2023 Monocyte distribution width Auto (Bld) [Entitic vol] 18.25 % 0.00-20.00 [facility] Monocytes Auto (Bld) [#/Vol] Ordered By: Rafael Broussard on 07-30-2023 Monocytes (Bld) [#/Vol] 0.6 10*3/uL 0.0-0.8 [facility] Monocytes/100 WBC Auto (Bld) Ordered By: Rafael Broussard on 07-30-2023 Monocytes/100 WBC (Bld) 8.2 % . [facility] Natriuretic peptide B [Mass/ Vol]Ordered By: Rafael Broussard on 07-30-2023 Natriuretic peptide B (Bld) [Mass/Vol] 39.0 pg/mL 5-100 [facility] Neutrophils Auto (Bld) [#/Vo l]Ordered By: Rafael Broussard on 07-30-2023 Neutrophils (Bld) [#/Vol] 4.9 10*3/uL 1.8-7.7 [facility] Neutrophils/100 WBC Auto (Bl d)Ordered By: Rafael Broussard on 07-30-2023 Neutrophils/100 WBC (Bld) 66.8 % . [facility] No Panel InformationOrdered By: Rafael Broussard on 07-30-2023 D-Dimer Quantitative (PE/DVT) 338 ng/mL 0-243 [facility] Comment on above: The reference range for D-dimer is <243 ng/mL D-dimer units.D-dimer results must be used in conjunction with a clinicalpretest probability (PTP) assessment model for deep veinthrombosis (DVT) and pulmonary embolism (PE). Results <230ng/mL d-dimer units can be used as a negative predictor inpatients with low or moderate probability for DVT/PE.Results above the exclusion threshold of 230 ng/ml D-dimerunits for DVT/PE may indicate the need for furtherdiagnostic testing.D-Dimer can be increased in hospitalized patients due toco-morbid conditions. Estimated GFR (CKD-EPI) 48.638 mL/Min [facility] Creatinine Clearance (Chem 67.24 [facility] Nucleated erythrocytes [Pres ence] in Blood by Automated countOrdered By: Rafael Broussard on 07-30-2023 Nucleated RBC Auto Ql (Bld) 0.1 /100{WBC} 0-0.5 [facility] Partial Thromboplastin Timeo n 07-30-2023 aPTT Coag (Bld) [Time] 26.3 s Normal 25.1-36.5 [facility] Comment on above: Performed By: #### C OVID19 FLU RSV, CEPHEID NEG #### [facility] [address] [place] [address] Platelet mean volume Auto (B ld) [Entitic vol]Ordered By: Rafael Broussard on 07-30-2023 Platelet mean volume (Bld) [Entitic vol] 6.7 fL 6.6-10.1 [facility] Platelets Auto (Bld) [#/Vol] Ordered By: Rafael Broussard on 07-30-2023 Platelets (Bld) [#/Vol] 228 10*3/uL 150-450 [facility] Potassium [Moles/volume] in Serum or PlasmaOrdered By: Rafael Broussard on 07-30-2023 Potassium [Moles/Vol] 4.4 mmol/L 3.5-5.1 [facility] Protein [Mass/volume] in Ser um or PlasmaOrdered By: Rafael Broussard on 07-30-2023 Protein [Mass/Vol] 6.9 g/dL 6.4-8.9 [facility] Prothrombin Time INRon 07-30 INR Coag (PPP) [Relative time] 1.0 {INR} Normal [facility] Comment on above: Result Comment: INR Therapeutic Range A) Pre- and Peroperative OAT started two weeks before surgery. NOT HIP SURGERY: 1.5 - 2.5 HIP SURGERY: 2 - 3 B) Primary and secondary prevention of venous THROMBOSIS: 2 - 3 C) Active venous thrombosis, pulmonary embolism and prevention of recurrent venous thrombosis: 2 - 3 D) Prevention of arterial thromboembolism including patients with mechanical heart valves: 3 - 4.5 Performed By: #### C OVID19 FLU RSV, CEPHEID NEG #### [facility] [address] [place] [address] PT Coag (PPP) [Time] 11.8 s Normal 9.0-12.9 [facility] Comment on above: Performed By: #### C OVID19 FLU RSV, CEPHEID NEG #### [facility] [address] RBC Auto (Bld) [#/Vol]Ordere d By: Rafael Broussard on 07-30-2023 RBC (Bld) [#/Vol] 4.34 10*6/uL 3.90-5.60 [facility] Serum or plasma albumin/glob ulin mass ratioOrdered By: Rafael Broussard on 07-30-2023 Albumin/Globulin [Mass ratio] 1.2 {ratio} [facility] Serum or plasma anion gap de terminationOrdered By: Rafael Broussard on 07-30-2023 Anion gap [Moles/Vol] 9.3 mmol/L 6.0-15.0 [facility] Serum or plasma non-glucuron idated bilirubin measurement (mass/volume)Ordered By: Rafael Broussard on 07-30-2023 Bilirubin.indirect [Mass/Vol] 0.4 mg/dL [facility] Sodium [Moles/volume] in Ser um or PlasmaOrdered By: Rafael Broussard on 07-30-2023 Sodium [Moles/Vol] 135 mmol/L 136-145 [facility] Troponin I High Sensitivityo n 07-30-2023 Troponin I High Sensitivity 8.5 pg/mL Normal 0.0-20.0 [facility] Comment on above: Result Comment: PERF ORMED BY: [place] [address] PATHOLOGIST REEL SLITTER THERESA CHOUDHARY M.D. Performed By: #### B INSTALLMENT DEALER #### [facility] [address] [place] [address] Troponin I.cardiac [Mass/vol ume] in Serum or Plasma by Detection limit <= 0.01 ng/Ordered By: Rafael Broussard on 07-30-2023 Troponin I.cardiac DL <= 0.01 ng/mL [Mass/Vol] 8.5 pg/mL 0.0-20.0 [facility] Urea nitrogen [Mass/volume] in Serum or PlasmaOrdered By: Rafael Broussard on 07-30-2023 Urea nitrogen [Mass/Vol] 17 mg/dL 7-25 [facility] WBC Auto (Bld) [#/Vol]Ordere d By: Rafael Broussard on 07-30-2023 WBC (Bld) [#/Vol] 7.4 10*3/uL 4.1-10.5 [facility] XR chest 2V*on 07-30-2023 XR chest 2V* [facility] [place] [address] [place] [address] XRay Report Signed Patient: Trey Figueroa Sr MR#: [id number] : 1950 Acct:[id number] Age/Sex: 73 / M ADM Date: 07/30/23 Loc: ER Room: Type: [facility] ER Attending Dr: Copies to: Rafael Broussard DO Ordering Provider: Raafel Broussard DO Date of Service: 07/30/23 XR/XR chest 2V*: Chest Pain Plain film chest 2 view HISTORY: Chest pain for 3 weeks. COMPARISON: 12/14/2021 FINDINGS: SUPPORT DEVICES: None POSTSURGICAL CHANGES: None HEART: Within normal limits PULMONARY JESSIE: Within normal limits MEDIASTINUM: Unremarkable LUNGS AND PLEURA: Interstitial prominence. Minimal blunting of posterior costophrenic angles. No pneumothorax. Lungs hyperinflated. BONY STRUCTURES: Extensive thoracic spine degeneration. Lower thoracic fixation hardware ADDITIONAL FINDINGS None XR/XR chest 2V* IMPRESSION: No acute findings. Impression dictated by: Augusto Munoz M.D.07/30/2023 5:35 PM Dictation Location: [place] [address] Transcribed By: [facility] 07/30/231734 Dictated By: Augusto Munoz DO 07/30/23 173 Signed By: 07/30/23 1735 [facility] Consent for Procedure/Surger yon 07-29-2023 Consent for Procedure/Surgery [id number]#[id number]:127 Normal [facility] Ambulatory Visit Summaryon 0 07-28-2023 Ambulatory Visit Summary TREY FIGUEROA :1950 MRN:[id number] Visit Date:07/28/2023 Ambulatory Visit Instructions Your Diagnosis Dysphagia Esophageal spasm Your Care Team Attending Physician - Maegan Estes MD Primary Care Physician - MERCHANT CHARLES, WILLARD This Is Your Medications List albuterol (Albuterol (Eqv-ProAir HFA)) amitriptyline (amitriptyline 150 mg Tab) aspirin (aspirin 81 mg Oral EC Tab) atorvastatin (atorvastatin 40 mg Tab) cephalexin (Keflex 500 mg Cap) dicyclomine (dicyclomine 20 mg Tab) dutasteride (dutasteride 0.5 mg Cap) emollients, topical (Neosalus topical cream) fluticasone (Flovent HFA 110 Inhaler) hydrochlorothiazide (hydrochlorothiazide 25 mg Tab) insulin aspart (NovoLOG 100 units/mL injectable solution) insulin glargine (Lantus 100 units/mL Injection-Insulin) losartan (losartan 25 mg Tab) meloxicam (meloxicam 15 mg oral tablet) nitroglycerin (Nitro 0.4 mg Tab) omeprazole (omeprazole 40 mg Cap-DR) terazosin (terazosin 10 mg Cap) tizanidine (tiZANidine 4 mg Tab) tramadol (traMADOL 50 mg Tab) Procedures Performed CE - Cataract extraction, Colonoscopy, Procedure on back. Discharge Vitals Heart Rate (Peripheral) 64 Respiratory Rate 16 Blood Pressure 126/82 Height 198 cm Height 78 in What to do next Scheduled Follow-Up Appointments 2022 3:00 PM EDT With: LAISHA CAVAZOS, TAYLER Zacarias Where: [facility] Gastroenterology Office/Clin ic Noteon 07-28-2023 Gastroenterology Office/Clinic Note Chief Complaint dysphagia HPI Staff Patient is a 73 year old male (established patient) who was referred back to us by Deyanira for dysphagia. Patient had MBS and PCP requesting a possible EGD to assess. Dysphagia: When did it start: over 2 years ago - feeling of a lump sensation in throat Solids or liquids: at times it is worse with liquids or solids - happens all the time Frequency ( every meal? Or less often): Previous EGD? 02/19/21 @ [facility] - Normal EGD per Dr. Dela Cruz's op note. MBS 06/17/23 @ [facility]. Results available to review today. Last visit 01/10/22 w/Dr. Lay: 1. Non-cardiac chest pain (R07.89: Other chest pain) I will proceed with an EGD to evaluate for esophagitis and esophageal ulcers. We can also do an esophageal motility test that will rule out esophageal spasm, which I am suspecting is based on his dysphagia and based on his chest pain. Meanwhile, we can start him on omeprazole 30 minutes before breakfast. 2. Dysphagia (R13.10: Dysphagia, unspecified) Please see #1. 3. Esophageal spasm (K22.4: Dyskinesia of esophagus) Please see #1. Patient did not repeat EGD in 2021 as advised at last office visit. Colonoscopy performed 12/27/2019 at [facility] w/Dr. Dela Cruz: - Two small sessile polyps in the sigmoid were removed with cold biopsy and were retrieved. Pathology states it was two tubular adenomas. Dr. Dela Cruz recommended a repeat colonoscopy in 5 years - 12/27/2024. History of Present Illness Reports fluids or solids cause mild pain in his throat No Heartburn or acid reflux He had modified barium swallow in March 2022, was having mild pharyngeal dysphagia, speech therapist recommended slightly thickening the liquids, he said he seldom does that No food impaction Review of Systems PHQ Score Initial Depression Screen Score: 0 Physical Exam Vitals & Measurements HR: 64(Peripheral) RR: 16 BP: 126/82 SpO2: 98% HT: 78 in HT: 198 cm General: alert, no acute distress Abdomen: Benign, soft, nontender nondistended Assessment/Plan 1. Dysphagia (R13.10: Dysphagia, unspecified) We will start with EGD with empiric dilation, will do manometry as well given the concern of spasms in the past Only taking aspirin 2. Esophageal spasm (K22.4: Dyskinesia of esophagus) Manometry and EGD as above Repeat colonoscopy in 2024 Follow-up No qualifying data available Problem List/Past Medical History Ongoing Arthritis BPH with obstruction/lower urinary tract symptoms Diabetes Heart disease Heart murmur Hypertension Liver disease Urge incontinence Historical No qualifying data Procedure/Surgical History CE - Cataract extraction, Colonoscopy, Procedure on back. Medications Albuterol (Eqv-ProAir HFA), 2 puff(s), Inhalation, q6hr, PRN amitriptyline 150 mg Tab, 150 mg= 1 tab(s), Oral, Once a day (at bedtime) aspirin 81 mg Oral EC Tab, 81 mg= 1 tab(s), Oral, Daily atorvastatin 40 mg Tab, 40 mg= 1 tab(s), Oral, Bedtime dicyclomine 20 mg Tab, 20 mg= 1 tab(s), Oral, QID dutasteride 0.5 mg Cap, 0.5 mg= 1 cap(s), Oral, Daily Flovent HFA 110 Inhaler, 2 puff(s), Inhalation, BID hydrochlorothiazide 25 mg Tab, 25 mg= 1 tab(s), Oral, Daily Keflex 500 mg Cap, 500 mg= 1 cap(s), Oral, Daily Lantus 100 units/mL Injection-Insulin, 41 unit(s), SubCutaneous, Once a day (at bedtime) losartan 25 mg Tab, 25 mg= 1 tab(s), Oral, Daily meloxicam 15 mg oral tablet, 15 mg= 1 tab(s), Oral, Daily Neosalus topical cream, 1 marc, Topical, BID, PRN Nitro 0.4 mg Tab, 1 tab(s), SubLingual, q5min, PRN NovoLOG 100 units/mL injectable solution, 11 unit(s), SubCutaneous, TIDAC omeprazole 40 mg Cap-DR, 40 mg= 1 cap(s), Oral, Daily, 2 refills terazosin 10 mg Cap, 20 mg= 2 cap(s), Oral, Once a day (at bedtime) tiZANidine 4 mg Tab, 4 mg= 1 tab(s), Oral, q8hr, PRN traMADOL 50 mg Tab, 100 mg= 2 tab(s), Oral, Daily, PRN Allergies No Known Medication Allergies Social History Alcohol - Denies Alcohol Use, 02/15/2022 Substance Abuse - Denies Substance Abuse, 02/15/2022 Tobacco - Denies Tobacco Use, 02/15/2022 Former smoker, quit more than 30 days ago Tobacco Use:. Cigarettes, Yes, 07/28/2023 Family History Heart disease: Father. Immunizations Vaccine Date Status Comments influenza virus vaccine, inactivated 03/11/2022 Recorded influenza virus vaccine, inactivated - Not Given Patient Refuses SARS-CoV-2 (COVID-19) Ad26 vaccine - Not Given Postpone due to refusal diphtheria/pertussis, acel/tetanus adult 06/14/2021 Recorded SARS-CoV-2 (COVID-19) Ad26 vaccine 05/04/2021 Recorded influenza virus vaccine, inactivated 02/20/2021 Recorded diphtheria/pertussis, acel/tetanus adult 03/07/2020 Recorded Normal [facility] Comment on above: Result Comment: Elec tronically Signed By: Meera CHARLES, Maegan Varner\.br\Date and Time Signed: 07/28/23 11:[address] - Progress Noteson 2022 ST - Progress Notes [id number]#[id number]:127 Normal [facility] Physician Referralon 023 Physician Referral [id number]#[id number]:127 Normal [facility] CNOVon 06-25-2023 CNOV Office Visit ([facility] ) HENRYTREY TELLO ([id number]) 1950 M Date Time Provider Department 06/25/23 1:45 PM Leroy MANCERA [facility]PS[facility] During your visit today, we recorded the following information about you: Inocente Shah 06/25/2023 4:05 PM Signed Recommendation Check for radicular symptoms/neurological deficit. Order consult to Medical Spine. Leroy Mancera MD 06/25/2023 4:05 PM Signed It is 3 months out from surgery and doing very well. He reports no back pain. His leg pain has resolved. His legs feel stronger. His main limiting factor at this time is bilateral knee pain and this is what prevents him from walking. He is going to be seeing Dr. Adams in the future about this. Given that he is doing well 3 months out from surgery he will continue with his activities as tolerated. Should he develop any new or recurrent pain I would be happy to see him again but I have not made a formal follow-up arrangement with him at this stage. Leroy Mancera MD Allergies As of Date: 06/25/2023 (No Known Allergies) Date Reviewed: 06/12/2023 Reviewed by: Jose Perez, OD - Fully Assessed Primary Visit Diagnosis:Spinal stenosis, lumbar region with neurogenic claudication [M48.062] Prescriptions as of 06/25/2023 - docusate sodium (COLACE) 100 mg capsule Take 1 capsule by mouth every 12 hours 6am/6pm. - finasteride (PROSCAR) 5 mg tablet - HUMALOG U-100 INSULIN 100 unit/mL injection - lisinopril (ZESTRIL) 40 mg tablet - oxyCODONE IR (ROXICODONE) 5 mg immediate release tablet - neomycin/polymyxin b/dexametha(MAXITROL 3.5 MG/G-10,000 UNIT/G-0.1 % EYE OINTMENT) Use 1 application in the right eye twice daily. right socket only four times a day for a week then twice daily x 1 week, then stop. - cyclobenzaprine (FLEXERIL) 10 mg tablet Take 1 tablet by mouth three times daily as needed. - donepezil (ARICEPT) 10 mg tablet TAKE 1 TABLET BY MOUTH AT BEDTIME EVERY DAY - tiZANidine (ZANAFLEX) 4 mg tablet TAKE ONE-HALF TO ONE TABLET BY MOUTH AT BEDTIME EVERY DAY - oxybutynin (DITROPAN) 5 mg tablet Take 5 mg by mouth twice daily. - Ipratropium [place] (ATROVENT) 21 mcg (0.03 %) nasal spray - insulin aspart U-100 (NOVOLOG) 100 unit/mL Inject 11 Units subcutaneously three times daily before meals. - insulin glargine (LANTUS) 100 unit/mL injection Inject 40 Units subcutaneously daily at bedtime. - atorvastatin (LIPITOR) 40 mg tablet Take 40 mg by mouth once daily. - dutasteride (AVODART) 0.5 mg capsule 1 capsule - pantoprazole DR (PROTONIX) 20 mg tablet Take 1 tablet by mouth. - pravastatin (PRAVACHOL) 40 mg tablet 1 tablet Once a day Orally 90 days - albuterol HFA (PROVENTIL HFA, VENTOLIN HFA) 90 mcg/actuation inhaler Inhale 2 Puffs as instructed every 4 hours as needed. - ammonium lactate (LAC-HYDRIN) 12 % lotion - aspirin 81 mg chewable tablet Take 81 mg by mouth once daily. - dicyclomine (BENTYL) 20 mg tablet 1 tablet - enalapril (VASOTEC) 20 mg tablet Take 20 mg by mouth. - FLOVENT HFA 110 mcg/actuation inhaler twice daily. - hydroCHLOROthiazide (HYDRODIURIL, ESIDRIX) 25 mg tablet 1 tab - hydrOXYzine pamoate (VISTARIL) 50 mg capsule TAKE 1 CAPSULE EVERY 8 HOURS - insulin regular human (NOVOLIN R,HUMULIN R) 100 unit/mL injection 45 units - losartan (COZAAR) 25 mg tablet Take 25 mg by mouth twice daily. - metoprolol tartrate, short acting, (LOPRESSOR) 50 mg tablet Take 50 mg by mouth twice daily. - nitroglycerin sublingual (NITROQUICK) 0.4 mg SL tablet Dissolve 0.4 mg under the tongue. - terazosin (HYTRIN) 5 mg capsule Take 10 mg by mouth daily at bedtime. - amLODIPine (NORVASC) 10 mg tablet Take 10 mg by mouth. - amitriptyline (ELAVIL) 100 mg tablet Take 150 mg by mouth. Meds Comments as of 12/15/2019: Pt did not come with med list, coming from outside of clinic angie quevedo [place] 12/15/19 Problem List As Of Date 06/25/2023 Noted Resolved Spinal stenosis, lumbar region without neurogen*01/16/2005 Type 2 diabetes mellitus without complication (*02/16/2020 group home current use of insulin (HCC) [Z79.4] 02/16/2020 Chronic pain [G89.29] 02/16/2020 Essential hypertension [I10] 04/29/2013 Moderate persistent asthma, uncomplicated [J45.*02/16/2020 History of colonic polyps [Z86.010] 07/30/2017 Constipation [K59.00] 02/16/2020 Cellulitis and abscess of unspecified site [L03*01/24/2012 Benign prostatic hyperplasia with lower urinary*02/16/2020 Asthma [J45.909] 04/29/2013 Leg swelling [M79.89] 01/24/2012 Type 2 diabetes mellitus without retinopathy (H*02/16/2020 Combined forms of age-related cataract of left *02/16/2020 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 [facility] 06-10-2023 [facility] Telephone (NIQ) TREY FIGUEROA ([id number]) 1950 [facility] Date Time Provider Department 06/10/23 Leroy MANCERA During your visit today, we recorded the following information about you: Pretty Way 06/10/2023 1:20 PM Signed Patient is calling in stating he is returning RN call, didn't see anything in chart. Ph. [phone] Louis Mallory RN 06/10/2023 1:35 PM Signed Neuro SPINE CARE COORDINATION QUICK NOTE Spoke with patient who is aware this nurse did not call. Provided patient with PT number to schedule. Allergies As of Date: 06/10/2023 (No Known Allergies) Date Reviewed: 05/29/2023 Reviewed by: Ana Luisa Burnett V, MD - Fully Assessed Reason for Visit: Called Back [1585] Prescriptions as of 06/10/2023 - neomycin/polymyxin b/dexametha(MAXITROL 3.5 MG/G-10,000 UNIT/G-0.1 % EYE OINTMENT) Use 1 application in the right eye twice daily. right socket only four times a day for a week then twice daily x 1 week, then stop. - cyclobenzaprine (FLEXERIL) 10 mg tablet Take 1 tablet by mouth three times daily as needed. - donepezil (ARICEPT) 10 mg tablet TAKE 1 TABLET BY MOUTH AT BEDTIME EVERY DAY - tiZANidine (ZANAFLEX) 4 mg tablet TAKE ONE-HALF TO ONE TABLET BY MOUTH AT BEDTIME EVERY DAY - oxybutynin (DITROPAN) 5 mg tablet Take 5 mg by mouth twice daily. - Ipratropium [place] (ATROVENT) 21 mcg (0.03 %) nasal spray - insulin aspart U-100 (NOVOLOG) 100 unit/mL Inject 11 Units subcutaneously three times daily before meals. - insulin glargine (LANTUS) 100 unit/mL injection Inject 40 Units subcutaneously daily at bedtime. - atorvastatin (LIPITOR) 40 mg tablet Take 40 mg by mouth once daily. - dutasteride (AVODART) 0.5 mg capsule 1 capsule - pantoprazole DR (PROTONIX) 20 mg tablet Take 1 tablet by mouth. - pravastatin (PRAVACHOL) 40 mg tablet 1 tablet Once a day Orally 90 days - albuterol HFA (PROVENTIL HFA, VENTOLIN HFA) 90 mcg/actuation inhaler Inhale 2 Puffs as instructed every 4 hours as needed. - ammonium lactate (LAC-HYDRIN) 12 % lotion - aspirin 81 mg chewable tablet Take 81 mg by mouth once daily. - dicyclomine (BENTYL) 20 mg tablet 1 tablet - enalapril (VASOTEC) 20 mg tablet Take 20 mg by mouth. - FLOVENT HFA 110 mcg/actuation inhaler twice daily. - hydroCHLOROthiazide (HYDRODIURIL, ESIDRIX) 25 mg tablet 1 tab - hydrOXYzine pamoate (VISTARIL) 50 mg capsule TAKE 1 CAPSULE EVERY 8 HOURS - insulin regular human (NOVOLIN R,HUMULIN R) 100 unit/mL injection 45 units - losartan (COZAAR) 25 mg tablet Take 25 mg by mouth twice daily. - metoprolol tartrate, short acting, (LOPRESSOR) 50 mg tablet Take 50 mg by mouth twice daily. - nitroglycerin sublingual (NITROQUICK) 0.4 mg SL tablet Dissolve 0.4 mg under the tongue. - terazosin (HYTRIN) 5 mg capsule Take 10 mg by mouth daily at bedtime. - amLODIPine (NORVASC) 10 mg tablet Take 10 mg by mouth. - amitriptyline (ELAVIL) 100 mg tablet Take 150 mg by mouth. 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 (HCC) [Z79.4] 02/16/2020 Chronic pain [G89.29] 02/16/2020 Essential hypertension [I10] 04/29/2013 Moderate persistent asthma, uncomplicated [J45.*02/16/2020 History of colonic polyps [Z86.010] 07/30/2017 Constipation [K59.00] 02/16/2020 Cellulitis and abscess of unspecified site [L03*01/24/2012 Benign prostatic hyperplasia with lower urinary*02/16/2020 Asthma [J45.909] 04/29/2013 Leg swelling [M79.89] 01/24/2012 Type 2 diabetes mellitus without retinopathy (H*02/16/2020 Combined forms of age-related cataract of left *02/16/2020 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] 02/16/2020 Lumbar spondylosis [M47.816] 09/01/2020 GERD (gastroesophageal reflux disease) [K21.9] Paraplegia (HCC) [G82.20] Other hyperlipidemia [E78.49] Neurogenic claudication due to lumbar spinal st*08/28/2022 Radiculitis, lumbosacral [M54.17] 08/28/2022 Urinary incontinence [R32] 10/09/2022 History of spinal cord injury [Z87.828] 10/09/2022 Cauda equina syndrome (HCC) [G83.4] 10/09/2022 BMI 37.0-37.9, adult [Z68.37] 03/21/2023 Headaches [R51.9] 03/21/2023 Personal history of DVT (deep vein thrombosis) *03/21/2023 S/P lumbar laminectomy [Z98.890] 03/25/2023 Encounter Status:Closed by LOUIS MALLORY on 06/10/23 [facility] Provider Orderson 05-20-2023 Provider Orders [id number] [facility] CNOVon 05-14-2023 [facility] TREY FIGUEROA ([id number]) 1950 M Date Time Provider Department 05/14/23 3:00 PM Leroy MANCERA [facility] During your visit today, we recorded the following information about you: Weight Height 143.8 kg 1.956 m Leroy Mancera MD 05/14/2023 3:48 PM Signed SPINE SURGERY ESTABLISHED VISIT This is an in-person visit. DATE OF SERVICE: 05/14/2023 DATE OF LAST VISIT: 11/27/2022 SUBJECTIVE: HPI:Trey Figueroa is a 73 year old male presenting alone. He is about 77 from L4-5 laminotomies and foraminotomies. Overall, he states that he is doing okay. He states that his preoperative pain has improved substantially. However, he has had some new pain from his back down to his left buttocks and thigh. He states this is worsened somewhat over the last several weeks. He is also been mostly in a wheelchair because of chronic pain in his knees. MEDICATIONS: neomycin/polymyxin b/dexametha(MAXITROL 3.5 MG/G-10,000 UNIT/G-0.1 % EYE OINTMENT) Use 1 application in the right eye twice daily. right socket only four times a day for a week then twice daily x 1 week, then stop. cyclobenzaprine (FLEXERIL) 10 mg tablet Take 1 tablet by mouth three times daily as needed. donepezil (ARICEPT) 10 mg tablet TAKE 1 TABLET BY MOUTH AT BEDTIME EVERY DAY tiZANidine (ZANAFLEX) 4 mg tablet TAKE ONE-HALF TO ONE TABLET BY MOUTH AT BEDTIME EVERY DAY oxybutynin (DITROPAN) 5 mg tablet Take 5 mg by mouth twice daily. Ipratropium [place] (ATROVENT) 21 mcg (0.03 %) nasal spray insulin aspart U-100 (NOVOLOG) 100 unit/mL Inject 11 Units subcutaneously three times daily before meals. insulin glargine (LANTUS) 100 unit/mL injection Inject 40 Units subcutaneously daily at bedtime. atorvastatin (LIPITOR) 40 mg tablet Take 40 mg by mouth once daily. dutasteride (AVODART) 0.5 mg capsule [address] (PROTONIX) 20 mg tablet Take 1 tablet by mouth. pravastatin (PRAVACHOL) 40 mg tablet 1 tablet Once a day Orally 90 days albuterol HFA (PROVENTIL HFA, VENTOLIN HFA) 90 mcg/actuation inhaler Inhale 2 Puffs as instructed every 4 hours as needed. ammonium lactate (LAC-HYDRIN) 12 % lotion aspirin 81 mg chewable tablet Take 81 mg by mouth once daily. dicyclomine (BENTYL) 20 mg tablet 1 tablet enalapril (VASOTEC) 20 mg tablet Take 20 mg by mouth. FLOVENT HFA 110 mcg/actuation inhaler twice daily. hydroCHLOROthiazide (HYDRODIURIL, ESIDRIX) 25 mg tablet 1 tab hydrOXYzine pamoate (VISTARIL) 50 mg capsule TAKE 1 CAPSULE EVERY 8 HOURS insulin regular human (NOVOLIN R,HUMULIN R) 100 unit/mL injection 45 units (Patient not taking: No sig reported) losartan (COZAAR) 25 mg tablet Take 25 mg by mouth twice daily. metoprolol tartrate, short acting, (LOPRESSOR) 50 mg tablet Take 50 mg by mouth twice daily. nitroglycerin sublingual (NITROQUICK) 0.4 mg SL tablet Dissolve 0.4 mg under the tongue. terazosin (HYTRIN) 5 mg capsule Take 10 mg by mouth daily at bedtime. amLODIPine (NORVASC) 10 mg tablet Take 10 mg by mouth. amitriptyline (ELAVIL) 100 mg tablet Take 150 mg by mouth. Patient Entered Questionnaires Spine Questions 12/15/2019 Pain Location: Lower back Pain Duration: 1 to 5 years Pain over last 6 months: Every day or nearly every day in the past 6 months Symptoms from neck/cervical spine: Yes Employment Status: Disabled due to back pain, permanently or temporarily Off work 1 month or more due to back/neck pain: Yes Applied for/receive disability/WC due to low back/neck pain Yes Involved in law suit/legal claim: No Spine Red Flags 12/15/2019 Any type of cancer: No Unexplained fever: No Bowel or bladder disfunction: Yes Unintentional weight loss: Yes Osteoporosis: No Neck Questionnaires 12/15/2019 Benzel Modified GERDA Score 3 (A lower score indicates increased pain and issues.) Low Back Pain Questionnaires 12/15/2019 STarT Risk Score 5 (High risk for prolonged disability) STarT Distress Score 5 STarT Total Score 9 KIRSTY Score 40 (Moderate disability) PROMIS Score Percentiles Physical Health 12/15/2019 Physical Function Percentile 0 Sleep Percentile 4 Fatigue Percentile 4 Pain Interference Percentile 1 PROMIS SOCIAL ROLE SCORE 12/15/2019 Social Role Satisfaction Percentile 8 PROMIS Global Health Scale 12/15/2019 Physical Health Percentile 2 Mental Health Percentile 19* Percentiles provide an indication of how the patient's score ranks in relation to the general population. Higher percentile rankings indicate better function/quality of life. 50th percentile is the average of the general population and indicates half of respondents had a worse score. Depression Screening: PHQ-9 12/15/2019 Score 19 PHQ-9 Self-harm Question 12/15/2019 Thoughts that you would be better off , or of hurting yourself in some way 0 PHQ-9 Self-Harm (Item 9) response options: 0 Not at all (more content not included)... [facility] Telephone (NIQ) TREY FIGUEROA ([id number]) 1950 M Date Time Provider Department 05/01/23 Leroy MANCERA During your visit today, we recorded the following information about you: Manju Bazzi 05/01/2023 10:52 AM Signed Tru called and stated she spoke to Monika about getting more nurse care for Trey. Pt will not go. Tru stated she got there this morning and he was laying there in bed, in pain and stated he doesn't want to talk about it. Tru's number [phone] Pt number [phone] Louis Mallory RN 05/01/2023 10:58 AM Signed Neuro SPINE CARE COORDINATION QUICK NOTE Attempted to call patient and left voicemail. Spoke with Claudia who is attempting to have patient admitted to a SNF, Louis Mallory RN 05/01/2023 2:13 PM Signed Neuro SPINE CARE COORDINATION QUICK NOTE Spoke with patient who states he is in a great amount of pain and is unable to do things at home. STRONGLY encouraged patient to be admitted to the SNF per passport. Left a message for Claduia (RN from [facility]) stating that Trey will consider to go to the facility. 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 Please call Claudia at ph: [phone] Louis Mallory RN 2023 9:51 AM Signed Neuro SPINE CARE COORDINATION QUICK NOTE Spoke with Claudia NORTON from [facility]. She states Squad and police records clerk vadim to patients home yesterday 05/01/2023, but patient refused care/transfer. [facility] may call protective services for patients welfare. Patient is of sound mind and is refusing to go to a facility. Cheryl Elizabeth Learning Disabilities Teacher 05/07/2023 9:17 AM Signed DANICA Taylor rn case manager hospice states pt went into nursing facility yesterday. If RN has any questions or concern feel free to reach out to Claudia. Claudia Call back; [phone] Louis Mallory RN 05/07/2023 9:37 AM Signed Neuro SPINE CARE COORDINATION QUICK NOTE Noted Allergies As of Date: 05/01/2023 (No Known Allergies) Date Reviewed: 03/26/2023 Reviewed by: Emy Garcia RN - Fully Assessed Reason for Visit: Patient Update [1234] Prescriptions as of 05/07/2023 - cyclobenzaprine (FLEXERIL) 10 mg tablet Take 1 tablet by mouth three times daily as needed. - donepezil (ARICEPT) 10 mg tablet TAKE 1 TABLET BY MOUTH AT BEDTIME EVERY DAY - tiZANidine (ZANAFLEX) 4 mg tablet TAKE ONE-HALF TO ONE TABLET BY MOUTH AT BEDTIME EVERY DAY - oxybutynin (DITROPAN) 5 mg tablet Take 5 mg by mouth twice daily. - Ipratropium [place] (ATROVENT) 21 mcg (0.03 %) nasal spray - insulin aspart U-100 (NOVOLOG) 100 unit/mL Inject 11 Units subcutaneously three times daily before meals. - insulin glargine (LANTUS) 100 unit/mL injection Inject 40 Units subcutaneously daily at bedtime. - atorvastatin (LIPITOR) 40 mg tablet Take 40 mg by mouth once daily. - neomycin/polymyxin b/dexametha(MAXITROL 3.5 MG/G-10,000 UNIT/G-0.1 % EYE OINTMENT) right socket only four times a day for a week then twice daily x 1 week, then stop. - dutasteride (AVODART) 0.5 mg capsule 1 capsule - pantoprazole DR (PROTONIX) 20 mg tablet Take 1 tablet by mouth. - pravastatin (PRAVACHOL) 40 mg tablet 1 tablet Once a day Orally 90 days - erythromycin (ROMYCIN) 5 mg/gram (0.5 %) ophthalmic ointment Use 1 application in the right eye twice daily. - albuterol HFA (PROVENTIL HFA, VENTOLIN HFA) 90 mcg/actuation inhaler Inhale 2 Puffs as instructed every 4 hours as needed. - ammonium lactate (LAC-HYDRIN) 12 % lotion - aspirin 81 mg chewable tablet Take 81 mg by mouth once daily. - dicyclomine (BENTYL) 20 mg tablet 1 tablet - enalapril (VASOTEC) 20 mg tablet Take 20 mg by mouth. - FLOVENT HFA 110 mcg/actuation inhaler twice daily. - hydroCHLOROthiazide (HYDRODIURIL, ESIDRIX) 25 mg tablet 1 tab - hydrOXYzine pamoate (VISTARIL) 50 mg capsule TAKE 1 CAPSULE EVERY 8 HOURS - insulin regular human (NOVOLIN R,HUMULIN R) 100 unit/mL injection 45 units - losartan (COZAAR) 25 mg tablet Take 25 mg by mouth twice daily. - metoprolol tartrate, short acting, (LOPRESSOR) 50 mg tablet Take 50 mg by mouth twice daily. - nitroglycerin sublingual (NITROQUICK) 0.4 mg SL tablet Dissolve 0.4 mg under the tongue. - terazosin (HYTRIN) 5 mg capsule Take 10 mg by mouth daily at bedtime. - amLODIPine (NORVASC) 10 mg tablet Take 10 mg by mouth. - amitriptyline (ELAVIL) 100 mg tablet Take 150 mg by mouth. 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 Normal [facility] CNPAllegra 04-29-2023 CNPN Telephone (NIQ) TREY FIGUEROA ([id number]) 1950 M Date Time Provider Department 04/29/23 Leroy MANCERA During your visit today, we recorded the following information about you: Felisa Hilario 04/29/2023 10:10 AM Signed Patient is calling would like to talk to nurse. He just left skill longterm and was wondering if he needs to go to another one or just do PT at home. Call back # [phone] Loius Mallory RN 04/29/2023 10:46 AM Signed Neuro SPINE CARE COORDINATION QUICK NOTE Spoke with patient, please see other encounter Stephanie Burger [facility] 04/29/2023 3:31 PM Signed Rec'd call from Claudia Meyer - Nurse w/[facility]; states she has been following this patient for years; she states she has found a facility for patient to go to until he's stronger to take care of himself (Medicaid); states at the present time patient cannot care for himself whatsoever; ph. [phone] Louis Mallory RN 04/29/2023 3:44 PM Signed Neuro SPINE CARE COORDINATION QUICK NOTE Spoke with Claudia with [facility]. States she has been following patient for years and he is unable to take care of himself at this time. Claudia is attempting to place patient into facility. Allergies As of Date: 04/29/2023 (No Known Allergies) Date Reviewed: 03/26/2023 Reviewed by: Emy Garcia RN - Fully Assessed Reason for Visit: Patient Question [9697] Prescriptions as of 2023 - cyclobenzaprine (FLEXERIL) 10 mg tablet Take 1 tablet by mouth three times daily as needed. - donepezil (ARICEPT) 10 mg tablet TAKE 1 TABLET BY MOUTH AT BEDTIME EVERY DAY - tiZANidine (ZANAFLEX) 4 mg tablet TAKE ONE-HALF TO ONE TABLET BY MOUTH AT BEDTIME EVERY DAY - oxybutynin (DITROPAN) 5 mg tablet Take 5 mg by mouth twice daily. - Ipratropium [place] (ATROVENT) 21 mcg (0.03 %) nasal spray - insulin aspart U-100 (NOVOLOG) 100 unit/mL Inject 11 Units subcutaneously three times daily before meals. - insulin glargine (LANTUS) 100 unit/mL injection Inject 40 Units subcutaneously daily at bedtime. - atorvastatin (LIPITOR) 40 mg tablet Take 40 mg by mouth once daily. - neomycin/polymyxin b/dexametha(MAXITROL 3.5 MG/G-10,000 UNIT/G-0.1 % EYE OINTMENT) right socket only four times a day for a week then twice daily x 1 week, then stop. - dutasteride (AVODART) 0.5 mg capsule 1 capsule - pantoprazole DR (PROTONIX) 20 mg tablet Take 1 tablet by mouth. - pravastatin (PRAVACHOL) 40 mg tablet 1 tablet Once a day Orally 90 days - erythromycin (ROMYCIN) 5 mg/gram (0.5 %) ophthalmic ointment Use 1 application in the right eye twice daily. - albuterol HFA (PROVENTIL HFA, VENTOLIN HFA) 90 mcg/actuation inhaler Inhale 2 Puffs as instructed every 4 hours as needed. - ammonium lactate (LAC-HYDRIN) 12 % lotion - aspirin 81 mg chewable tablet Take 81 mg by mouth once daily. - dicyclomine (BENTYL) 20 mg tablet 1 tablet - enalapril (VASOTEC) 20 mg tablet Take 20 mg by mouth. - FLOVENT HFA 110 mcg/actuation inhaler twice daily. - hydroCHLOROthiazide (HYDRODIURIL, ESIDRIX) 25 mg tablet 1 tab - hydrOXYzine pamoate (VISTARIL) 50 mg capsule TAKE 1 CAPSULE EVERY 8 HOURS - insulin regular human (NOVOLIN R,HUMULIN R) 100 unit/mL injection 45 units - losartan (COZAAR) 25 mg tablet Take 25 mg by mouth twice daily. - metoprolol tartrate, short acting, (LOPRESSOR) 50 mg tablet Take 50 mg by mouth twice daily. - nitroglycerin sublingual (NITROQUICK) 0.4 mg SL tablet Dissolve 0.4 mg under the tongue. - terazosin (HYTRIN) 5 mg capsule Take 10 mg by mouth daily at bedtime. - amLODIPine (NORVASC) 10 mg tablet Take 10 mg by mouth. - amitriptyline (ELAVIL) 100 mg tablet Take 150 mg by mouth. 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 (HCC) [Z79.4] 02/16/2020 Chronic pain [G89.29] 02/16/2020 Essential hypertension [I10] 04/29/2013 Moderate persistent asthma, uncomplicated [J45.*02/16/2020 History of colonic polyps [Z86.010] 07/30/2017 Constipation [K59.00] 02/16/2020 Cellulitis and abscess of unspecified site [L03*01/24/2012 Benign prostatic hyperplasia with lower urinary*02/16/2020 Asthma [J45.909] 04/29/2013 Leg swelling [M79.89] 01/24/2012 Type 2 diabetes mellitus without retinopathy (H*02/16/2020 Combined forms of age-related cataract of left *02/16/2020 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 Normal [facility] CNPN Telephone (NIQ) TREY FIGUEROA ([id number]) 1950 [facility] Date Time Provider Department 04/29/23 Leroy MANCERA During your visit today, we recorded the following information about you: Ksenia Gerson [facility] 04/29/2023 10:08 AM Signed Pt was just released from a rehab facility on . His surgery with Dr. Mancera was on March 24. Pt is asking should he be admitted to another facility or do in home PT/OT. He has been suffering from pain since he was released. He cannot lift, bend or twist without severe pain on his left side. The pain goes from the knee, up the back to the base of the fransico. Please advise. Louis Mallory, RN 04/29/2023 10:33 AM Signed Neuro SPINE CARE COORDINATION QUICK NOTE 03/24/2023: L4-5 bilateral laminotomy and foraminotomy Spoke with patient and answered all questions. Patient was discharged from rehab facility in [place] on 04/24/2023. [facility] evaluated patient yesterday 04/28/2023 and will have an aide, nurse and therapy working with him. C/O post operative pain on left side (starts at left knee and radiates to upper back and base of skull). Patient is currently taking Percocet and a muscle relaxer twice a day (did not know the strength of the medication). Educated on post op pain and expectations. Denies weakness, fever, drainage from incision. Allergies As of Date: 04/29/2023 (No Known Allergies) Date Reviewed: 03/26/2023 Reviewed by: Emy Garcia RN - Fully Assessed Reason for Visit: Information [1328] Prescriptions as of 04/30/2023 - cyclobenzaprine (FLEXERIL) 10 mg tablet Take 1 tablet by mouth three times daily as needed. - donepezil (ARICEPT) 10 mg tablet TAKE 1 TABLET BY MOUTH AT BEDTIME EVERY DAY - tiZANidine (ZANAFLEX) 4 mg tablet TAKE ONE-HALF TO ONE TABLET BY MOUTH AT BEDTIME EVERY DAY - oxybutynin (DITROPAN) 5 mg tablet Take 5 mg by mouth twice daily. - Ipratropium [place] (ATROVENT) 21 mcg (0.03 %) nasal spray - insulin aspart U-100 (NOVOLOG) 100 unit/mL Inject 11 Units subcutaneously three times daily before meals. - insulin glargine (LANTUS) 100 unit/mL injection Inject 40 Units subcutaneously daily at bedtime. - atorvastatin (LIPITOR) 40 mg tablet Take 40 mg by mouth once daily. - neomycin/polymyxin b/dexametha(MAXITROL 3.5 MG/G-10,000 UNIT/G-0.1 % EYE OINTMENT) right socket only four times a day for a week then twice daily x 1 week, then stop. - dutasteride (AVODART) 0.5 mg capsule 1 capsule - pantoprazole DR (PROTONIX) 20 mg tablet Take 1 tablet by mouth. - pravastatin (PRAVACHOL) 40 mg tablet 1 tablet Once a day Orally 90 days - erythromycin (ROMYCIN) 5 mg/gram (0.5 %) ophthalmic ointment Use 1 application in the right eye twice daily. - albuterol HFA (PROVENTIL HFA, VENTOLIN HFA) 90 mcg/actuation inhaler Inhale 2 Puffs as instructed every 4 hours as needed. - ammonium lactate (LAC-HYDRIN) 12 % lotion - aspirin 81 mg chewable tablet Take 81 mg by mouth once daily. - dicyclomine (BENTYL) 20 mg tablet 1 tablet - enalapril (VASOTEC) 20 mg tablet Take 20 mg by mouth. - FLOVENT HFA 110 mcg/actuation inhaler twice daily. - hydroCHLOROthiazide (HYDRODIURIL, ESIDRIX) 25 mg tablet 1 tab - hydrOXYzine pamoate (VISTARIL) 50 mg capsule TAKE 1 CAPSULE EVERY 8 HOURS - insulin regular human (NOVOLIN R,HUMULIN R) 100 unit/mL injection 45 units - losartan (COZAAR) 25 mg tablet Take 25 mg by mouth twice daily. - metoprolol tartrate, short acting, (LOPRESSOR) 50 mg tablet Take 50 mg by mouth twice daily. - nitroglycerin sublingual (NITROQUICK) 0.4 mg SL tablet Dissolve 0.4 mg under the tongue. - terazosin (HYTRIN) 5 mg capsule Take 10 mg by mouth daily at bedtime. - amLODIPine (NORVASC) 10 mg tablet Take 10 mg by mouth. - amitriptyline (ELAVIL) 100 mg tablet Take 150 mg by mouth. Meds Comments as of 12/15/2019: Pt did not come with med list, coming from outside of clinic angie quevedo [place] 12/15/19 Problem List As Of Date 04/29/2023 Noted Resolved Spinal stenosis, lumbar region without neurogen*01/16/2005 Type 2 diabetes mellitus without complication (*02/16/2020 group home current use of insulin (HCC) [Z79.4] 02/16/2020 Chronic pain [G89.29] 02/16/2020 Essential hypertension [I10] 04/29/2013 Moderate persistent asthma, uncomplicated [J45.*02/16/2020 History of colonic polyps [Z86.010] 07/30/2017 Constipation [K59.00] 02/16/2020 Cellulitis and abscess of unspecified site [L03*01/24/2012 Benign prostatic hyperplasia with lower urinary*02/16/2020 Asthma [J45.909] 04/29/2013 Leg swelling [M79.89] 01/24/2012 Type 2 diabetes mellitus without retinopathy (H*02/16/2020 Combined forms of age-related cataract of left *02/16/2020 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 Normal [facility] Patient Correspondenceon Patient Correspondence [phone] [id number] Normal [facility] NURSING PROGon 03-27-2023 NURSING PROG HNO ID: [id number] Author: Dali Payne RN Service: Nursing Author Type: Registered Nurse Type: Nursing Progress Note Filed: 03/27/2023 1:26 AM Note Text: Other: assumed care at 1900. IV site clean dry and intact. Pt dressing on lower back is clean dry and intact. Pt resting in bed. Vital signs are stable. Transport arrived 2300, gave report and handed off paperwork to them. Normal [facility] Basic metabolic 2000 panelon 03-26-2023 Anion gap [Moles/Vol] 7 mmol/L Low 9-18 [facility] Comment on above: Order Comment: Speci men Type: BLOOD SPECIMENOrdering Facility: [facility] Address: [address] [place] [address] Performed By: #### 2 4321-2 ####[facility]ATORYCLIA [id number] [place] [address] [place] Calcium [Mass/Vol] 8.3 mg/dL Low 8.5-10.2 [facility] Comment on above: Order Comment: Speci men Type: BLOOD SPECIMENOrdering Facility: [facility] Address: [address] [place] [address] Performed By: #### 2 4321-2 ####[facility]ORATORYCLIA [id number] [place] [id number] [place] Chloride [Moles/Vol] 102 mmol/L Normal 97-105 [facility] Comment on above: Order Comment: Speci men Type: BLOOD SPECIMENOrdering Facility: [facility] Address: [address] [place] [address] Performed By: #### 2 4321-2 ####[facility]ORATORYCLIA [id number] [address] [place] [facility] CO2 [Moles/Vol] 26 mmol/L Normal 22-30 [facility] Comment on above: Order Comment: Speci men Type: BLOOD SPECIMENOrdering Facility: [facility] Address: [address] [place] [address] Performed By: #### 2 4321-2 ####[facility]ORYCLIA [id number] [address] [place] Creatinine [Mass/Vol] 1.26 mg/dL High 0.73-1.22 [facility] Comment on above: Order Comment: Speci men Type: BLOOD SPECIMENOrdering Facility: [facility] Address: [address] [place] [address] Performed By: #### 2 4321-2 ####[facility]ATORYCLIA [id number] [address] ESTIMATED GLOMERULAR FILTRATION RATE 60 mL/min/1.73m??? Normal >=60 [facility] Comment on above: Order Comment: Speci men Type: BLOOD SPECIMENOrdering Facility: [facility] Address: [address] [place] [address] Result Comment: Silvia mated Glomerular Filtration Rate (eGFR) is calculated using the 2020 CKD-EPI creatinine equation. This equation utilizes serum creatinine, sex, and age as parameters. The creatinine assay has traceable calibration to isotope dilution-mass spectrometry. Refer to KDIGO guidelines for clinical interpretation. In patients with unstable renal function, e.g. those with acute kidney injury, the eGFR may not accurately reflect actual GFR. Performed By: #### 2 4321-2 ####[facility]ATORYCLIA [id number] [address] [place] [address] [place] Glucose [Mass/Vol] 126 mg/dL High 74-99 [facility] Comment on above: Order Comment: Speci men Type: BLOOD SPECIMENOrdering Facility: [facility] Address: [address] [place] [address] Result Comment: The [place] Diabetes Association (ADA) provides guidance for cutoff values for fasting glucose and random glucose. The ADA defines fasting as no caloric intake for at least 8 hours. Fasting plasma glucose results between 100 to 125 mg/dL indicate increased risk for diabetes (prediabetes). Fasting plasma glucose results greater than or equal to 126 mg/dL meet the criteria for diagnosis of diabetes. In the absence of unequivocal hyperglycemia, results should be confirmed by repeat testing. In a patient with classic symptoms of hyperglycemia or hyperglycemic crisis, random plasma glucose results greater than or equal to 200 mg/dL meet the criteria for diagnosis of diabetes. Reference: Standards of Medical Care in Diabetes 2016, [place] Diabetes Association. Diabetes Care. 2016.39(Suppl 1). Performed By: #### 2 4321-2 ####[facility]ORATORYCLIA [id number] [place] [address] [place] Potassium [Moles/Vol] 4.1 mmol/L Normal 3.7-5.1 [facility] Comment on above: Order Comment: Iglesiai men Type: BLOOD SPECIMENOrdering Facility: [facility] Address: [address] [place] [address] Performed By: #### 2 4321-2 ####[facility]ORATORYCLIA [id number] [place] [address] [place] Sodium [Moles/Vol] 135 mmol/L Low 136-144 [facility] Comment on above: Order Comment: Speci men Type: BLOOD SPECIMENOrdering Facility: [facility] Address: [address] [place] [address] Performed By: #### 2 4321-2 ####[facility]ORATORYCLIA [id number] [place] [address] [place] Urea nitrogen [Mass/Vol] 17 mg/dL Normal 08-24 [facility] Comment on above: Order Comment: Speci men Type: BLOOD SPECIMENOrdering Facility: [facility] Address: [address] [place], [place] [address] [address] Performed By: #### 2 4321-2 ####[facility] LABORATORYCLIA [id number] [address] CASE MANAGEMon 03-26-2023 CASE MANAGEM HNO ID: [id number] Author: Sandy Myers RN Service: ? Author Type: Registered Nurse Type: Care Mgt Progress Note Filed: 03/26/2023 3:57 PM Note Text: CARE MANAGEMENT DISCHARGE NOTE SERVICE DATE: March 26, 2023 SERVICE TIME: 3:56 pm Admission Date: 03/24/2023 LOS: 0 days Discharge Arrangement Discharge Arrangement: [facility] Facility Services Arranged Provider Name: [facility] Caregiver Assessment Caregiver is ready, willing and able to meet the patient's needs as recommended by the inter-professional team: Yes Transportation Arrangements Transportation Arrangements: Ambulance Transportation Agency and Phone #:: [facility] [phone] Date of Trip: 03/26/23 Time of Trip: 2129 Type of Service: BLS Non-emergency Is Patient Medicaid Pending?: No Was transportation financial coverage discussed with family?: Patient Clinical Auditor Location: [place] Destination: [facility] Financial Care Management Responsibility: None Handoff Communication: Handoff to: (see summary of care) Discharge Information Row Name Admission (Current) from 03/24/2023 in [facility] 5D Other Follow-Up Type Passport Portable Track Crew Chief Name Claudia Meyer RN Phone/ Instructions Call on discharge to resume services SIGNATURE: Sandy Myers RN PATIENT NAME: Trey Figueroa DATE: March 26, 2023 TIME: 3:56 PM CONTACT #: [phone] Normal [facility] CBC panel Auto (Bld)on 03-26 Erythrocyte distribution width (RBC) [Ratio] 13.0 % Normal 11.5-15.0 [facility] Comment on above: Order Comment: Speci men Type: BLOOD SPECIMENOrdering Facility: [facility] Address: [address] [place] [address] Performed By: #### 5 8410-2 ####[facility] LABORATORYCLIA [id number] [address] Hematocrit (Bld) [Volume fraction] 36.1 % Low 39.0-51.0 [facility] Comment on above: Order Comment: Speci men Type: BLOOD SPECIMENOrdering Facility: [facility] Address: [address] [place] [address] Performed By: #### 5 8410-2 ####[facility] LABORATORYCLIA [id number] [address] [place] Hemoglobin (Bld) [Mass/Vol] 12.0 g/dL Low 13.0-17.0 [facility] Comment on above: Order Comment: Speci men Type: BLOOD SPECIMENOrdering Facility: [facility] Address: [address] [address] Performed By: #### 5 8410-2 ####[facility] LABORATORYCLIA [id number] [address] MCH (RBC) [Entitic mass] 29.9 pg Normal 26.0-34.0 [facility] Comment on above: Order Comment: Speci men Type: BLOOD SPECIMENOrdering Facility: [facility] Address: [address] [place] [address] Performed By: #### 5 8410-2 ####[facility] LABORATORYCLIA [id number] [address] MCHC (RBC) [Mass/Vol] 33.2 g/dL Normal 30.5-36.0 [facility] Comment on above: Order Comment: Speci men Type: BLOOD SPECIMENOrdering Facility: [facility] Address: [address] [place] [address] Performed By: #### 5 8410-2 ####[facility] LABORATORYCLIA [id number] [place] [id number] [place] [facility] MCV (RBC) [Entitic vol] 90.0 fL Normal 80.0-100.0 [facility] Comment on above: Order Comment: Speci men Type: BLOOD SPECIMENOrdering Facility: [facility] Address: [address] [place] [address] Performed By: #### 5 8410-2 ####[facility] LABORATORYCLIA [id number] [address] [place] [address] [place] Nucleated RBC (Bld) [#/Vol] 10*3/uL Normal <0.01 [facility] Comment on above: Order Comment: Speci men Type: BLOOD SPECIMENOrdering Facility: [facility] Address: [address] [place] [address] Performed By: #### 5 8410-2 ####[facility] LABORATORYCLIA [id number] [address] [place] Platelet mean volume (Bld) [Entitic vol] 9.0 fL Normal 9.0-12.7 [facility] Comment on above: Order Comment: Speci men Type: BLOOD SPECIMENOrdering Facility: [facility] Address: [address] [place] [address] Performed By: #### 5 8410-2 ####[facility] LABORATORYCLIA [id number] [address] Platelets (Bld) [#/Vol] 193 10*3/uL Normal 150-400 [facility] Comment on above: Order Comment: Speci men Type: BLOOD SPECIMENOrdering Facility: [facility] Address: [address] [place] [address] Performed By: #### 5 8410-2 ####[facility] LABORATORYCLIA [id number] [place] [address] [facility] [place] RBC (Bld) [#/Vol] 4.01 10*6/uL Low 4.20-6.00 [facility] Comment on above: Order Comment: Speci men Type: BLOOD SPECIMENOrdering Facility: [facility] Address: [address] [place] [phone] Performed By: #### 5 8410-2 ####[facility] LABORATORYCLIA [id number] [place] [address] [facility] WBC (Bld) [#/Vol] 11.97 10*3/uL High 3.70-11.00 [facility] Comment on above: Order Comment: Speci men Type: BLOOD SPECIMENOrdering Facility: [facility] Address: [address] [place] [phone] Performed By: #### 5 8410-2 ####[facility] LABORATORYCLIA [id number] [place] [address] [facility] ALLIED HEALTHon 03-25-2023 ALLIED HEALTH HNO ID: [id number] Author: Catalina Wagner RN Service: Infection Prevention Author Type: Registered Nurse Type: Allied Health Filed: 03/25/2023 2:15 PM Note Text: ISOLATION NOTE -Admission Date: 03/24/2023 Type of Isolation Recommended: Contact and Droplet Precautions Plus Eyewear (Cranberry Isolation Sign) Indication: COVID-19 Exposure Concern Maintain Contact/Droplet and Eyewear isolation signage Remain in private room Use an N95 (or PAPR) Avoid entering room during aerosol generating procedure when possible Limit transport and movement of the patient to medically necessary purposes Anticipated Duration of Isolation: 10+ days If patient remains ASYMPTOMATIC, on 04/01/2023 collect a routine screening COVID-19 test If test result is NEGATIVE and it is 04/02/2023 or later and patient remains ASYMPTOMATIC, you may discontinue isolation precautions Maintain low threshold to retest if patient develops symptoms at any time during their stay. If additional guidance is needed, consult Infection Prevention. SIGNATURE: Catalina Wagner RN PATIENT NAME: Trey Figueroa DATE: March 25, 2023 TIME: 2:11 PM PAGER/CONTACT #: [phone] or extension [phone] -Infection Prevention after hours/weekend pager: [phone] Mancera of this patient's potential exposure. Normal [facility] Basic metabolic 2000 panelon 03-25-2023 Anion gap [Moles/Vol] 6 mmol/L Low 9-18 [facility] Comment on above: Order Comment: Speci men Type: BLOOD SPECIMENOrdering Facility: [facility] Address: [address] [place] [address] Performed By: #### 2 4321-2 ####[facility] LABORATORYCLIA [id number] [address] [place] [address] [place] Calcium [Mass/Vol] 8.8 mg/dL Normal 8.5-10.2 [facility] Comment on above: Order Comment: Speci men Type: BLOOD SPECIMENOrdering Facility: [facility] Address: [address] [place] [address] Performed By: #### 2 4321-2 ####[facility] LABORATORYCLIA [id number] [place] [id number] [place] Chloride [Moles/Vol] 103 mmol/L Normal 97-105 [facility] Comment on above: Order Comment: Speci men Type: BLOOD SPECIMENOrdering Facility: [facility] Address: [address] [place] [address] Performed By: #### 2 4321-2 ####[facility] LABORATORYCLIA [id number] [place] [id number] [place] CO2 [Moles/Vol] 29 mmol/L Normal 22-30 [facility] Comment on above: Order Comment: Speci men Type: BLOOD SPECIMENOrdering Facility: [facility] Address: [address] [place] [address] Performed By: #### 2 4321-2 ####[facility] LABORATORYCLIA [id number] [address] [address] [place] Creatinine [Mass/Vol] 1.35 mg/dL High 0.73-1.22 [facility] Comment on above: Order Comment: Asya arriaga Type: BLOOD SPECIMENOrdering Facility: [facility] Address: [address] [id number] Performed By: #### 2 4321-2 ####[facility] LABORATORYCLIA [id number] [address] [address] [place] ESTIMATED GLOMERULAR FILTRATION RATE 55 mL/min/1.73m??? Low >=60 [facility] Comment on above: Order Comment: Iglesiaelizabeth arriaga Type: BLOOD SPECIMENOrdering Facility: [facility] Address: [address] [address] Result Comment: Silvia mated Glomerular Filtration Rate (eGFR) is calculated using the 2020 CKD-EPI creatinine equation. This equation utilizes serum creatinine, sex, and age as parameters. The creatinine assay has traceable calibration to isotope dilution-mass spectrometry. Refer to KDIGO guidelines for clinical interpretation. In patients with unstable renal function, e.g. those with acute kidney injury, the eGFR may not accurately reflect actual GFR. Performed By: #### 2 4321-2 ####[facility] LABORATORYCLIA [id number] [address] [id number] [place] Glucose [Mass/Vol] 238 mg/dL High 74-99 [facility] Comment on above: Order Comment: Asya arriaga Type: BLOOD SPECIMENOrdering Facility: [facility] Address: [address] [place] [address] Result Comment: The [place] Diabetes Association (ADA) provides guidance for cutoff values for fasting glucose and random glucose. The ADA defines fasting as no caloric intake for at least 8 hours. Fasting plasma glucose results between 100 to 125 mg/dL indicate increased risk for diabetes (prediabetes). Fasting plasma glucose results greater than or equal to 126 mg/dL meet the criteria for diagnosis of diabetes. In the absence of unequivocal hyperglycemia, results should be confirmed by repeat testing. In a patient with classic symptoms of hyperglycemia or hyperglycemic crisis, random plasma glucose results greater than or equal to 200 mg/dL meet the criteria for diagnosis of diabetes. Reference: Standards of Medical Care in Diabetes 2016, [place] [employer] Association. Diabetes Care. 2016.39(Suppl 1). Performed By: #### 2 4321-2 ####[facility] LABORATORYCLIA [id number] [address] [place] [address] [place] Potassium [Moles/Vol] 4.5 mmol/L Normal 3.7-5.1 [facility] Comment on above: Order Comment: Speci men Type: BLOOD SPECIMENOrdering Facility: [facility] Address: [address] [place] [address] Performed By: #### 2 4321-2 ####[facility] LABORATORYCLIA [id number] [place] [address] [place] Sodium [Moles/Vol] 138 mmol/L Normal 136-144 [facility] Comment on above: Order Comment: Speci men Type: BLOOD SPECIMENOrdering Facility: [facility] Address: [address] [place] [address] Performed By: #### 2 4321-2 ####[facility] LABORATORYCLIA [id number] [address] [place] Urea nitrogen [Mass/Vol] 20 mg/dL Normal 9-24 [facility] Comment on above: Order Comment: Speci men Type: BLOOD SPECIMENOrdering Facility: [facility] Address: [address] [place] [address] Performed By: #### 2 4321-2 ####[facility] LABORATORYCLIA [id number] [place] [address] [facility] [place] CBC panel Auto (Bld)on 03-25 Erythrocyte distribution width (RBC) [Ratio] 13.0 % Normal 11.5-15.0 [facility] Comment on above: Order Comment: Speci men Type: BLOOD SPECIMENOrdering Facility: [facility] Address: [address] [place] [address] Performed By: #### 5 8410-2 ####[facility] LABORATORYCLIA [id number] [address] [place] Hematocrit (Bld) [Volume fraction] 38.7 % Low 39.0-51.0 [facility] Comment on above: Order Comment: Speci men Type: BLOOD SPECIMENOrdering Facility: [facility] Address: [address] [place] [address] Performed By: #### 5 8410-2 ####[facility] LABORATORYCLIA [id number] [address] [place] [facility] Hemoglobin (Bld) [Mass/Vol] 12.8 g/dL Low 13.0-17.0 [facility] Comment on above: Order Comment: Speci men Type: BLOOD SPECIMENOrdering Facility: [facility] Address: [address] [place] [address] Performed By: #### 5 8410-2 ####[facility] LABORATORYCLIA [id number] [address] [place] [address] [place] [facility] MCH (RBC) [Entitic mass] 29.4 pg Normal 26.0-34.0 [facility] Comment on above: Order Comment: Speci men Type: BLOOD SPECIMENOrdering Facility: [facility] Address: [address] [place] [address] Performed By: #### 5 8410-2 ####[facility] LABORATORYCLIA [id number] [address] [place] MCHC (RBC) [Mass/Vol] 33.1 g/dL Normal 30.5-36.0 [facility] Comment on above: Order Comment: Speci men Type: BLOOD SPECIMENOrdering Facility: [facility] Address: [address] [place] [address] Performed By: #### 5 8410-2 ####[facility] LABORATORYCLIA [id number] [address] MCV (RBC) [Entitic vol] 88.8 fL Normal 80.0-100.0 [facility] Comment on above: Order Comment: Speci men Type: BLOOD SPECIMENOrdering Facility: [facility] Address: [address] Performed By: #### 5 8410-2 ####[facility] LABORATORYCLIA [id number] [place] [address] [place] Nucleated RBC (Bld) [#/Vol] 10*3/uL Normal <0.01 [facility] Comment on above: Order Comment: Speci men Type: BLOOD SPECIMENOrdering Facility: [facility] Address: [address] Performed By: #### 5 8410-2 ####[facility] LABORATORYCLIA [id number] [place] [address] [place] Platelet mean volume (Bld) [Entitic vol] 9.0 fL Normal 9.0-12.7 [facility] Comment on above: Order Comment: Speci men Type: BLOOD SPECIMENOrdering Facility: [facility] Address: [address] Performed By: #### 5 8410-2 ####[facility] LABORATORYCLIA [id number] [address] [place] Platelets (Bld) [#/Vol] 251 10*3/uL Normal 150-400 [facility] Comment on above: Order Comment: Speci men Type: BLOOD SPECIMENOrdering Facility: [facility] Address: [address] Performed By: #### 5 8410-2 ####[facility] LABORATORYCLIA [id number] [place] [address] [place] RBC (Bld) [#/Vol] 4.36 10*6/uL Normal 4.20-6.00 [facility] Comment on above: Order Comment: Speci men Type: BLOOD SPECIMENOrdering Facility: [facility] Address: [address] Performed By: #### 5 8410-2 ####[facility] LABORATORYCLIA [id number] [place] [id number] [place] WBC (Bld) [#/Vol] 10.24 10*3/uL Normal 3.70-11.00 [facility] Comment on above: Order Comment: Speci men Type: BLOOD SPECIMENOrdering Facility: [facility] Address: [address] [place] [address] Performed By: #### 5 8410-2 ####[facility] LABORATORYCLIA [id number] [address] [place] CNDSon 03-25-2023 [facility] HNO ID: [id number] Author: Sandeep Morton MD Service: Orthopaedic Surgery Author Type: Resident Type: Discharge Summary Filed: 03/26/2023 8:57 AM Note Text: Attestation signed by Leroy Mancera MD at 03/26/2023 10:42 AM Leroy Mancera MD ORTHOPAEDIC SURGERY Discharge Summary PATIENT NAME: Trey Figueroa ADMISSION DATE: 03/24/2023 DISCHARGE DATE: 03/26/23 Attending Physician: Leroy Mancera MD Reason for Hospitalization: Post-operative monitoring and recovery Operations During Hospitalization: L4-5 bilateral lopez isabela Procedures During Hospitalization: No procedures performed Hospital Course: Trey Figueroa is a 72 year old male who presented for the above surgery. On 03/24/23 , he underwent the above procedure. Surgery was uneventful and after a brief stay in the PACU, he transferred to the regular nursing floor. Pain was well controlled. Intake and output were closely monitored. Electrolytes were monitored with labs and replaced as needed. The patient had an unremarkable recovery, and diet was advanced as tolerated. The patient was deemed appropriate for discharge to SNF on POD2 as he was afebrile, hemodynamically stable, tolerating a diet, pain controlled on oral meds, and ambulating without difficulty. Follow up will occur in clinic with Dr. Mancera in 2-3 weeks. Labs and Procedures Pending at Discharge: No pending results. Consulting Teams During Hospitalization: IM PT OT Patient Condition @ Discharge: Stable Discharge Disposition: Home with Self Care Discharge Medications: Current Discharge Medication List START taking these medications oxyCODONE IR (ROXICODONE) 5 mg Take 5 mg by mouth every 6 hours as needed for pain. Qty: 28 tablet Refills: 0 Associated Diagnoses:Post-op pain cyclobenzaprine (FLEXERIL) 10 mg Take 10 mg by mouth three times daily as needed. Qty: 30 tablet Refills: 1 CONTINUE these medications which have CHANGED docusate sodium (COLACE) 100 mg Take 100 mg by mouth twice daily. Qty: 14 capsule Refills: 0 CONTINUE these medications which have NOT CHANGED donepezil (ARICEPT) 10 mg tablet TAKE 1 TABLET BY MOUTH AT BEDTIME EVERY DAY tiZANidine (ZANAFLEX) 4 mg tablet TAKE ONE-HALF TO ONE TABLET BY MOUTH AT BEDTIME EVERY DAY oxybutynin (DITROPAN) 5 mg Take 5 mg by mouth twice daily. Ipratropium [place] (ATROVENT) 21 mcg (0.03 %) nasal spray insulin aspart U-100 (NovoLOG) 11 Units Inject 11 Units subcutaneously three times daily before meals. insulin glargine (LANTUS) 40 Units Inject 40 Units subcutaneously daily at bedtime. atorvastatin (LIPITOR) 40 mg Take 40 mg by mouth once daily. neomycin/polymyxin b/dexametha(MAXITROL 3.5 MG/G-10,000 UNIT/G-0.1 % EYE OINTMENT) right socket only four times a day for a week then twice daily x 1 week, then stop. Qty: 7 g Refills: 0 dutasteride (AVODART) 0.5 mg capsule [address] (PROTONIX) 1 tablet Take 1 tablet by mouth. pravastatin (PRAVACHOL) 40 mg tablet 1 tablet Once a day Orally 90 days erythromycin (ROMYCIN) 1 application Use 1 application in the right eye twice daily. Qty: 1 g Refills: 11 albuterol HFA (PROVENTIL HFA, VENTOLIN HFA) 2 Puffs Inhale 2 Puffs as instructed every 4 hours as needed. Comments: Generic or brand: dispense inhaler preferred by patient/insurance unless NERIS flag is selected. ammonium lactate (LAC-HYDRIN) 12 % lotion aspirin 81 mg Take 81 mg by mouth once daily. dicyclomine (BENTYL) 20 mg tablet 1 tablet enalapril (VASOTEC) 20 mg Take 20 mg by mouth. FLOVENT HFA 110 mcg/actuation inhaler twice daily. hydroCHLOROthiazide (HYDRODIURIL, ESIDRIX) 25 mg tablet 1 tab hydrOXYzine pamoate (VISTARIL) 50 mg capsule TAKE 1 CAPSULE EVERY 8 HOURS losartan (COZAAR) 25 mg Take 25 mg by mouth twice daily. metoprolol tartrate (short acting) (LOPRESSOR) 100 mg Take 100 mg by mouth. nitroglycerin sublingual (NITROQUICK) 0.4 mg Dissolve 0.4 mg under the tongue. terazosin (HYTRIN) 10 mg Take 10 mg by mouth daily at bedtime. amLODIPine (NORVASC) 10 mg Take 10 mg by mouth. amitriptyline (ELAVIL) 150 mg Take 150 mg by mouth. insulin regular human (NOVOLIN R,HUMULIN R) 100 unit/mL injection 45 units STOP taking these medications naproxen (NAPROSYN) 500 mg tablet Comments: Reason for Stopping: amoxicillin-clavulanic acid (AUGMENTIN) 875-125 mg per tablet Comments: Reason for Stopping: cephALEXin (KEFLEX) 500 mg capsule Comments: Reason for Stopping: traMADol (ULTRAM) 50 mg tablet Comments: Reason for Stopping: meloxicam (MOBIC) 15 mg tablet Comments: Reason for Stopping: Future Appointments: Future Appointments Date Time Provider Department Center 05/14/2023 3:00 PM Leroy Mancera MD [facility] 05/29/2023 2:00 PM Aim (more content not included)... [facility] CONSULTon 03-25-2023 CONSULT HNO ID: [id number] Author: Joyce Gomez MD Service: General Internal Medicine Author Type: Physician Type: Consults Filed: 03/24/2023 10:58 PM Note Text: INTERNAL MEDICINE CONSULT HISTORY AND PHYSICAL PLEASE DO NOT REMOVE FROM THE CHART OR MODIFY PRINTED COPY Patient Name: Trey Figueroa PRIMARY CARE PHYSICIAN: Yasir Aguirre MD CONSULTING PHYSICIAN: Leroy Mancera MD MD DATE of CONSULT: 10:55 PM HPI: This is a 72 year old male who presents with DECOMPRESSION LAMINECTOMY LUMBAR POSTERIOR LEVEL 1 (Bilateral: Spine). Pt seen denied cp/ sob no weakness . No headche or dizzness . Pt fever or chills . No urgency PAST MEDICAL HISTORY: PAST MEDICAL HISTORY Diagnosis Date Asthma BPH (benign prostatic hyperplasia) GERD (gastroesophageal reflux disease) History of colonic polyps Other hyperlipidemia Paraplegia (HCC) Personal history of DVT (deep vein thrombosis) 03/21/2023 Primary hypertension Pseudophakia of left eye 02/04/2022 PAST SURGICAL HISTORY: PAST SURGICAL HISTORY Procedure Laterality Date BACK SURGERY HX HAND SURGERY HX Left PAST SURGICAL HISTORY OF 02/17/2005 T10-T11 DISCECTOMY FUSION INST (MANCERA) REMV CATARACT EXTRACAP,INSERT LENS Left 01/14/2022 Aim -1.00 REMV CATARACT EXTRACAP,INSERT LENS Left 02/04/2022 AIM -1.00 FAMILY HISTORY: FAMILY HISTORY Problem Relation Age of Onset No Ocular Disease Father No Ocular Disease Mother Cataract Maternal Grandfather Macular Degen Maternal Grandfather SOCIAL HISTORY: Social History Tobacco Use Smoking status: Former Types: Cigarettes Quit date: 12/23/1994 Years since quittin.2 Smokeless tobacco: Never Vaping Use Vaping Use: Never used Substance Use Topics Alcohol use: Never Drug use: Never ALLERGIES: ALLERGIES No Known Allergies PRIOR TO ADMISSION MEDICATIONS: donepezil (ARICEPT) 10 mg tablet, TAKE 1 TABLET BY MOUTH AT BEDTIME EVERY DAY, Disp: , Rfl: , 03/23/2023 tiZANidine (ZANAFLEX) 4 mg tablet, TAKE ONE-HALF TO ONE TABLET BY MOUTH AT BEDTIME EVERY DAY, Disp: , Rfl: , 03/23/2023 oxybutynin (DITROPAN) 5 mg tablet, Take 5 mg by mouth twice daily., Disp: , Rfl: , 03/23/2023 Ipratropium [place] (ATROVENT) 21 mcg (0.03 %) nasal spray, , Disp: , Rfl: , 03/23/2023 insulin aspart U-100 (NOVOLOG) 100 unit/mL, Inject 11 Units subcutaneously three times daily before meals., Disp: , Rfl: , 03/23/2023 insulin glargine (LANTUS) 100 unit/mL injection, Inject 40 Units subcutaneously daily at bedtime., Disp: , Rfl: , 03/23/2023 atorvastatin (LIPITOR) 40 mg tablet, Take 40 mg by mouth once daily., Disp: , Rfl: , 03/23/2023 neomycin/polymyxin b/dexametha(MAXITROL 3.5 MG/G-10,000 UNIT/G-0.1 % EYE OINTMENT), right socket only four times a day for a week then twice daily x 1 week, then stop., Disp: 7 g, Rfl: 0, 03/22/2023 dutasteride (AVODART) 0.5 mg capsule, 1 capsule, Disp: , Rfl: , 03/23/[address] (PROTONIX) 20 mg tablet, Take 1 tablet by mouth., Disp: , Rfl: , 03/23/2023 pravastatin (PRAVACHOL) 40 mg tablet, 1 tablet Once a day Orally 90 days, Disp: , Rfl: , 03/23/2023 erythromycin (ROMYCIN) 5 mg/gram (0.5 %) ophthalmic ointment, Use 1 application in the right eye twice daily., Disp: 1 g, Rfl: 11 albuterol HFA (PROVENTIL HFA, VENTOLIN HFA) 90 mcg/actuation inhaler, Inhale 2 Puffs as instructed every 4 hours as needed., Disp: , Rfl: , 03/23/2023 ammonium lactate (LAC-HYDRIN) 12 % lotion, , Disp: , Rfl: , 03/24/2023 aspirin 81 mg chewable tablet, Take 81 mg by mouth once daily. , Disp: , Rfl: , 03/23/2023 dicyclomine (BENTYL) 20 mg tablet, 1 tablet, Disp: , Rfl: , 03/23/2023 enalapril (VASOTEC) 20 mg tablet, Take 20 mg by mouth., Disp: , Rfl: , 03/23/2023 FLOVENT HFA 110 mcg/actuation inhaler, twice daily., Disp: , Rfl: , 03/23/2023 hydroCHLOROthiazide (HYDRODIURIL, ESIDRIX) 25 mg tablet, 1 tab, Disp: , Rfl: , 03/17/2023 hydrOXYzine pamoate (VISTARIL) 50 mg capsule, TAKE 1 CAPSULE EVERY 8 HOURS, Disp: , Rfl: , 03/23/2023 losartan (COZAAR) 25 mg tablet, Take 25 mg by mouth twice daily., Disp: , Rfl: , 03/23/2023 metoprolol tartrate, short acting, (LOPRESSOR) 50 mg tablet, Take 50 mg by mouth twice daily., Disp: , Rfl: , 03/23/2023 at 830 nitroglycerin sublingual (NITROQUICK) 0.4 mg SL tablet, Dissolve 0.4 mg under the tongue., Disp: , Rfl: , 3 yrs ago terazosin (HYTRIN) 5 mg capsule, Take 10 mg by mouth daily at bedtime., Disp: , Rfl: , 03/23/2023 amLODIPine (NORVASC) 10 mg tablet, Take 10 mg by mouth., Disp: , Rfl: , 03/23/2023 amitriptyline (ELAVIL) 100 mg tablet, Take 150 mg by mouth., Disp: , Rfl: , 03/23/2023 [DISCONTINUED] naproxen (NAPROSYN) 500 mg tablet, TAKE 1 TABLET BY MOUTH TWICE DAILY WITH FOOD OR MILK FOR 10 DAYS (Patient not taking: Reported on 03/24/2023), Disp: , Rfl: , Not Taking [DISCONTINUED] amoxicillin-clavulanic acid (AUGMENTIN) 875-125 mg per tablet, Take by mouth. (Patient not taking: Reported on 03/21/2023), Disp: (more content not included)... [facility] FLUABV+SARS-CoV-2+RSV Pnl Re sp HAY+probeon 03-25-2023 FLUABV+SARS-CoV-2+RSV Pnl Resp HAY+probe COVID 19 RESULT: Not detected The method used is RT-PCR or an equivalent NAAT method. Reference Range(the expected result in uninfected individuals): Not detected INFLUENZA A PCR: Not detected INFLUENZA B PCR: Not detected RSV PCR: Not detected [facility] Comment on above: Performed By: #### [id number] ####[facility] [id number] [address] [address] [facility] Provider Letteron 03-25-2023 Provider Letter (Inserted Image. June ble to display) March 25, 2023 TREY FIGUEROA Angie [address] [place] [address] TREY FIGUEROA Angie 1950 Dear Mr. Figueroa,, You missed your scheduled appointment with Dr Jurado on 03/25/23 and the purpose of this letter is to inform you of our *No Show Policy*. Our appointment slots fill rapidly and when we have a no show appointment that time is lost. We could have used that time slot to care for a patient who needed to see one of our providers. Therefore, we ask that you call 24 hours in advance to cancel your appointment. Please call [phone] and choose the screening representative option and get rescheduled. This policy is in place so that we can meet the needs of all of our patients and we do appreciate your understanding. Sincerely, [facility] [address] [place] [address] [facility] THERAPY NTon 03-25-2023 THERAPY NT HNO ID: [id number] Author: ADRIANNE Michel/Quiana Service: Occupational Therapy Author Type: Occupational Therapist Type: Therapy (PT/OT/Speech/Resp) Filed: 03/25/2023 2:22 PM Note Text: OCCUPATIONAL THERAPY MISSED VISIT SERVICE DATE: 03/25/2023 SERVICE TIME: 1418 to 1418 ROOM: [place] [address] Patient not seen due to Another service at bedside. Nursing at bedside, patient being transferred to another room will attempt again later as able. SIGNATURE: ADRIANNE Michel/Quiana PATIENT NAME: Trey Figueroa DATE: March 25, 2023 TIME: 2:19 PM [facility] THERAPY NT HNO ID: [id number] Author: Marlen Yang, PT, DPT Service: Physical Therapy Author Type: Physical Therapist Type: Therapy (PT/OT/Speech/Resp) Filed: 03/25/2023 1:53 PM Note Text: Physical Therapy Evaluation SERVICE DATE: 03/25/2023 SERVICE TIME: 1220 to 1301 ROOM: [id number] Recommended Discharge Disposition: Subacute/SNF Recommended Discharge Disposition Due to: Patient requires an active, intensive rehabilitation therapy program due to:, Patient requires daily, facility-based rehabilitation from at least one discipline due to:, ADL impairment resulting in caregiver dependence, decline in functional status requiring daily skilled care, less than 3/5 weakness noted in: Anticipated Discharge Needs: Physical Assist at Home Physical Assist at Home for: Transportation, Safety, Transfers, Ambulation, Self Care, Shopping Recommended Discharge Equipment: No equipment needs anticipated PT 6 Clicks Score: 11 Pt agreeable to participate. Requires much instruction and education for safety and proper technique to mobilize. Move out of my way and I can show you how I do it I need room to be able to swing' If I go down there is no getting me back up Pt able to stand at EOB with 2 person Max A and Max verbal and tactile cues for hand placement and safe technique. Required 3 attempts to complete. Able to stand at EOB with Min A of 2 persons once standing balance obtained. Pt with B knee flexion and decreased knee stability. Pt able to side step to HOB with Min A of 2 persons with WW. Pt would benefit from continued PT at a SNF to maximize safety and independence to facilitate safe return home. Precautions/Activity Restrictions: Fall Risk Current Hospital Course: 72 y.o male admitted 03/24/23 s/p L4-5 Bilateral laminotomy, foraminotomy Reason for Hospital Admission: spinal stenosis Relevant Past Medical History: DM, asthma, paraplegia, obesity, blind R eye Response to Therapy Interventions: Low Activity Tolerance, Multiple Ongoing Medical Issues, Needs Frequent Redirection or Reinstruction, Pain, Slow Progression with Functional Activities/Skills Continued Skilled Needs Due to: Functional Mobility/Skill Impairments, Safety Concerns Physical Therapy Problem List: Pain, Safety Deficits, Impaired Self Care, Decreased Activity Tolerance, Decreased Strength, Functional Mobility Impairment, Balance Impaired, Sensory Deficit Treatment Interventions: Education, Self Care / Home Management, Energy Conservation Training, Joint Mobility, Strengthening, Functional Mobility Training, Balance Training, Modalities Modalities: Ice Plan for Next Visit: Bed Mobility, Fall Prevention, Pre-gait Activities, Sit to Stand Transfers, Exercise Instruction/Handout, Sitting Balance, Standing Balance, Standing Tolerance, Walker Training Home Environment Patient Lives With: Self/Alone Assistance Available: None Entry To Home: No Stairs, Elevator Number Of Stairs To Bed/Bath: 0 Tub/Shower Type: tub shower Laundry: pt performed Equipment Owned: Wheelchair- Manual, Commode- 3 in 1, Shower Chair Prior Functional Level: History of Falls, Required Assistance, Within Functional Limits Assistance Required With: Transportation, Cleaning Prior Functional Level Comments: Pt reports he is W/C bound. Unable to get W/C thru doorway of BR and bedroom. States that he would furniture walk. Reports frequent falls (approx 3-5x/week). States that he is Mod I with ADLs. States he performed IADLs but reports he was active with a [employer] service. Patient Report: You are too close to me. I need to be able to swing to be able to get up CURRENT FUNCTIONAL STATUS: Most recent performance Current Functional Mobility Assist Level Additional Information Rolling Minimal Assistance Supine to Sit Moderate Assistance Sit to Supine Moderate Assistance Scooting Minimal Assistance Sit to Stand Maximal Assistance, Additional Information x 2 persons. Required 3 attempts to complete. untilizes momentum to complete Stand to Sit Minimal Assistance Bed to Chair Toilet/Commode Gait Minimal Assistance, Additional Information Gait Device: Wheeled Walker, Other: See Comment (gait belt) Gait Distance (feet): 2 feet x 1 (side stepping to HOB) Stairs Curb Step Car Transfer Blank cerna indicate activity not attempted Gait Deviations Right Lower Extremity: Knee flexion during stance increased, Step length decreased, Foot clearance decreased Gait Deviations Left Lower Extremity: Foot clearance decreased, Knee flexion during stance increased, Stance time decreased General Deviations/Observations: Flexed trunk posture, Shuffling Gait, Step length decreased, UE weight bearing on assistive device excessive JH-HLM: 3: Sit at edge of bed Learning/Educational Needs: Discharge Plan, Equipment, Functional Activities/Mobility, Plan of Care, Precautions, Safety Goals for Plan of Care: Patient/Caregiver Goals: G (more content not included)... [facility] ANES POSTPROC EVALon 023 ANES POSTPROC EVAL HNO ID: [id number] Author: John Velasquez MD Service: Anesthesiology Author Type: Anesthesiologist Type: Anesthesia Postprocedure Evaluation Filed: 03/24/2023 2:49 PM Note Text: POST ANESTHESIA EVALUATION NOTE : 1950 Procedure Summary Date: 03/24/23 Room / Location: OR02 / [facility] Anesthesia Start: 1129 Anesthesia Stop: 1355 Procedure: DECOMPRESSION LAMINECTOMY LUMBAR POSTERIOR LEVEL 1 (Bilateral: Spine) Diagnosis: Spinal stenosis, lumbar region with neurogenic claudication Radiculopathy, lumbar region (Spinal stenosis, lumbar region with neurogenic claudication [M48.062]) (Radiculopathy, lumbar region [M54.16]) Surgeons: Leroy Mancera MD Responsible Provider: John Velasquez MD Anesthesia Type: general ASA Status: 3 Anesthesia Type: general Airway Type: ETT Last Vitals Vitals Value Taken Time BP 120/68 03/24/23 1445 Temp 36.7 ?C (98.1 ?F) 03/24/23 1352 Pulse 72 03/24/23 1447 Resp 16 03/24/23 1415 SpO2 96 % 03/24/23 1447 Vitals shown include unvalidated device data. Post Anesthesia Patient Status Patient Evaluation: PACU. PACU/ICU Patient Condition: stable. Anticipated Disposition: inpatient floor planned admission. Neurological Status: aware and responsive. Pulmonary Status: breathing comfortably on supplemental oxygen Airway Control: returned to baseline unsupported. Cardiovascular Status: stable. Pain Management: clinically adequate - multimodal analgesia pain management approach Postoperative Hydration: acceptable. Intraoperative Events: no significant anesthesia events Post Operative Nausea/Vomiting Status: no significant post operative nausea or vomiting Recommendation: continue current plan of care and further care per PACU/ICU/floor team. Anesthesia Observations No Documentation SIGNATURE: John Velasquez MD PATIENT NAME: Trey Figueroa DATE: March 24, 2023 TIME: 2:47 PM CSN: [id number] [facility] ANES PRE-OPon 03-24-2023 ANES PRE-OP HNO ID: [id number] Author: Allen Johnson MD Service: Anesthesiology Author Type: Physician Type: Anesthesia Preprocedure Evaluation Filed: 03/24/2023 11:15 AM Note Text: ANESTHESIOLOGY DAY OF SURGERY NOTE : 1950 Procedure Information Date/Time: 03/24/23 1100 Procedure: DECOMPRESSION LAMINECTOMY LUMBAR POSTERIOR LEVEL 1 (Bilateral: Spine) Location: [facility] OR02 / [facility] Surgeons: Leroy Mancera MD Estimated body mass index is 37.59 kg/m? as calculated from the following: Height as of 03/21/23: 195.6 cm (6' 5 ). Weight as of 03/21/23: 143.8 kg (317 lb). Most recent hematocrit and potassium results: Hematocrit 40.8 03/21/2023 Potassium 4.7 03/21/2023 Relevant Problems CARDIO (+) Essential hypertension ENDO (+) Type 2 diabetes mellitus without complication (HCC) (+) Type 2 diabetes mellitus without retinopathy (HCC) GI (+) GERD (gastroesophageal reflux disease) NEURO-PSYCH (+) Headaches (+) History of colonic polyps (+) History of spinal cord injury (+) Personal history of DVT (deep vein thrombosis) PULMONARY (+) Asthma (+) Moderate persistent asthma, uncomplicated I - PHYSICAL EVALUATION AIRWAY Patient intubated: No. Tracheostomy tube not present Mallampati: II. TM distance: >3 FB. Neck ROM: full. Mouth opening: adequate. Short neck: no. Thick neck: no Tesfaye present: no DENTAL Normal dental observations. Dental findings: teeth intact. Additional exam findings: no II - ANESTHESIA PLAN ASA Score: 3 Anesthetic Plan: general Airway type: ETT NPO Status: adequate Beta Moises Monitoring Plan Monitoring plan: Standard ASA. Post Procedure Analgesic Plan Postoperative analgesic plan: parenteral or oral opioids. Informed Consent Anesthetic risks, benefits, alternatives, personnel and consent discussed: yes. Patient / Responsible Green Party agrees to proceed: yes Patient / Surrogate agrees to blood products: blood products not planned Significant changes in the patient condition since the History and Physical, not otherwise documented in primary service progress note: no. Potential Anesthesia issues that may suggest increased risk of complications or contraindication to planned procedure: none. Vitals Value Taken Time BP 115/61 03/24/23 0946 Pulse 63 03/24/23 0946 Resp 16 03/24/23 0946 Temp 36.6 ?C (97.9 ?F) 03/24/23 0946 SpO2 96 % 03/24/23 0946 Facility-Administered Medications as of 03/24/2023 Medication Dose Route Frequency - lidocaine (PF) 10 mg/mL (1 %) 1-2 mg injection (XYLOCAINE) 0.1-0.2 mL INTRADERMAL PRN - lactated ringers iv infusion 5-30 mL/hr INTRAVENOUS CONTINUOUS - NaCl 0.9% iv flush bag 20 mL INTRAVENOUS PRN - ceFAZolin 3 g in D5W 100 mL (ANCEF) 3 g INTRAVENOUS ONCE Outpatient Medications as of 03/24/2023 Medication Sig - Ipratropium [place] (ATROVENT) 21 mcg (0.03 %) nasal spray - insulin aspart U-100 (NOVOLOG) 100 unit/mL Inject 11 Units subcutaneously three times daily before meals. - insulin glargine (LANTUS) 100 unit/mL injection Inject 40 Units subcutaneously daily at bedtime. - atorvastatin (LIPITOR) 40 mg tablet Take 40 mg by mouth once daily. - neomycin/polymyxin b/dexametha(MAXITROL 3.5 MG/G-10,000 UNIT/G-0.1 % EYE OINTMENT) right socket only four times a day for a week then twice daily x 1 week, then stop. - traMADol (ULTRAM) 50 mg tablet Take by mouth. - dutasteride (AVODART) 0.5 mg capsule 1 capsule - pantoprazole DR (PROTONIX) 20 mg tablet Take 1 tablet by mouth. - pravastatin (PRAVACHOL) 40 mg tablet 1 tablet Once a day Orally 90 days - erythromycin (ROMYCIN) 5 mg/gram (0.5 %) ophthalmic ointment Use 1 application in the right eye twice daily. - albuterol HFA (PROVENTIL HFA, VENTOLIN HFA) 90 mcg/actuation inhaler Inhale 2 Puffs as instructed every 4 hours as needed. - ammonium lactate (LAC-HYDRIN) 12 % lotion - aspirin 81 mg chewable tablet Take 81 mg by mouth once daily. - dicyclomine (BENTYL) 20 mg tablet 1 tablet - docusate sodium (COLACE) 100 mg capsule 1 capsule as needed - enalapril (VASOTEC) 20 mg tablet Take 20 mg by mouth. - FLOVENT HFA 110 mcg/actuation inhaler twice daily. - hydroCHLOROthiazide (HYDRODIURIL, ESIDRIX) 25 mg tablet 1 tab - hydrOXYzine pamoate (VISTARIL) 50 mg capsule TAKE 1 CAPSULE EVERY 8 HOURS - losartan (COZAAR) 25 mg tablet Take 25 mg by mouth twice daily. - metoprolol tartrate, short acting, (LOPRESSOR) 50 mg tablet Take 100 mg by mouth. - nitroglycerin sublingual (NITROQUICK) 0.4 mg SL tablet Dissolve 0.4 mg under the tongue. - terazosin (HYTRIN) 5 mg capsule Take 10 mg by mouth daily at bedtime. - amLODIPine (NORVASC) 10 mg tablet Take 10 mg by mouth. - amitriptyline (ELAVIL) 100 mg tablet Take 150 mg by mouth. - amoxicillin-clavulanic acid (AUGMENTIN) 875-125 mg per tablet Take by mouth. (Patient not taking: Reported on 03/21/2023) - cephALEXin (KEFLEX) 500 mg capsule TAKE 1 CAPSULE BY MOUTH EVERY 6 HOURS for 7 (SEVEN) days (P (more content not included)... [facility] BRIEF OP NOTon 03-24-2023 BRIEF OP NOT HNO ID: [id number] Author: Sandeep Morton MD Service: Orthopaedic Surgery Author Type: Resident Type: Brief Op Note Filed: 03/24/2023 2:24 PM Note Text: BRIEF OP NOTE LOG ID: [id number] Surgery/Procedure Date: 03/24/2023 Incision/Procedure Start Time: 11:59 AM Incision Close/Procedure End Time: 1:42 PM Surgeon(s)/Proceduralist(s) and Traffic Rate Analyst(s): Surgeon(s) and Role: * Leroy Mancera MD - Primary * Sandeep Morton MD - Resident - Assisting * Ethel Prieto MD - Fellow Procedure(s): L4-5 bilateral lopez isabela Anesthesia: General Findings: lumbar stenosis Estimated Blood Loss: 10 mls Specimens: None Complications: None Pre-Op/Pre-Procedure Diagnosis: lumbar stenosis Post-Op/Post-Procedure Diagnosis: Same Pre-operatively, a complete plan of care visit was completed: Plan of care discussed with: Provider, RN, Patient. SIGNATURE: Sandeep Morton MD PATIENT NAME: Trey Figueroa DATE: March 24, 2023 TIME: 2:24 PM PAGER/CONTACT #: [phone] [facility] CASE MGT INIT ASSESon 2022 CASE MGT INIT ASSES HNO ID: [id number] Author: Sandy Myers RN Service: ? Author Type: Registered Nurse Type: Care Mgt Initial Assessment Filed: 03/24/2023 4:49 PM Note Text: CARE MANAGEMENT: ASSESSMENT AND DISCHARGE PLAN SERVICE DATE: March 24, 2023 SERVICE TIME: 4:47 pm PCP: Yasir Aguirre MD Primary Contact: Extended Emergency Contact Information Primary Emergency Contact: Trey Figueroa Jr ([facility]) Mobile Relation: Son Admission Status: Ambulatory Surgery - Procedure(s): L4-5 bilateral lopez isabela Insurance Provider: MEDICARE A AND B Discharge Planning requested by: Per Department Practice Potential Transition Plans Home Advance Directives Current Advance Directive: None Current Living Arrangements and Support Lives with: Alone Type of Residence: Private Residence (Apartment or Condo) Support: Children (son) How do you manage to accomplish the following: Needs Assistance: Ambulation;Transportation to appointments/community Current Services/Equipment Current Post-Acute Service(s): None Discharge Planning Patient Goal(s): Less pain, General wellness, Be able to go home, Better mobility Luther of Choice Explained: Luther of Choice Given: No Reason Not Given: Unable to complete with this assessment - revisit Discharge Planning Participant(s): Patient Patient/Family Comments: Caregiver Assessment: Caregiver is ready, willing and able to meet the patient's needs as recommended by the inter-professional team: Other: See Comment (tbd - will have PT / OT evals prior to DC) Transport at Discharge: Needs Prior to Discharge: Needs Prior to Discharge: To Be Determined;OT/PT Evaluation Post-Acute Discharge Plan: CM met with patient at the bedside, states he lives alone, does not have any home care services at this time, states he calls a car service that drives him home at DC. Stated he has a W/C at home. PT / OT evals pending. CM Department will continue to follow SIGNATURE: Sandy Myers RN PATIENT NAME: Trey Figueroa DATE: March 24, 2023 TIME: 4:47 PM CONTACT #: [phone] [facility] HISTORY PHYSICALon HISTORY PHYSICAL HNO ID: [id number] Author: Sandeep Morton MD Service: Orthopaedic Surgery Author Type: Resident Type: HANDP Filed: 03/24/2023 9:19 AM Note Text: Attestation signed by Leroy Mancera MD at 03/24/2023 2:02 PM Leroy Mancera MD UPDATED HISTORY AND PHYSICAL EXAMINATION The patient's recent History and Physical has been reviewed and the patient has been examined. The contents accurately reflect the patient's condition with the following additions or revisions since the HANDP was completed. Examination indicates no changes. Heart: RRR Lungs: CTABL Patient is appropriate for indicated surgery today Real Morton MD Orthopaedic Surgery, PGY-3 Normal [facility] OPERATIVE NOon 03-24-2023 OPERATIVE NO HNO ID: [id number] Author: Leroy Mancera MD Service: Neurosurgery Author Type: Physician Type: Operative Report Filed: 03/25/2023 5:19 PM Note Text: [facility] - Operative Report TREY FIGUEROA : 1950 AGE: 72. SEX: M PATIENT TYPE: A HOSP [facility]: [facility] LOCATION: [facility] ATTENDING PHYSICIAN: Jose Antonio Mancera M.D.,[facility] CSN NUMBER: [id number] DATE OF SURGERY/PROCEDURE: 03/24/2023 INCISION/PROCEDURE START TIME: 11:59 AM INCISION CLOSE/PROCEDURE END TIME: 1:42 PM PREOPERATIVE DIAGNOSIS: Lumbar spinal stenosis with neurogenic claudication. POSTOPERATIVE DIAGNOSIS: Lumbar spinal stenosis with neurogenic claudication. SURGEON: Jose Antonio Mancera M.D.,[facility] CHAIN MAKER: 1. Dr. Ethel Prieto. 2. Dr. Taiwo Morton. SURGERY/PROCEDURE: L4-5 bilateral laminotomy and foraminotomy. ANESTHESIA: General. INDICATIONS: This 72-year-old male presents complaining of activity-related bilateral lower extremity pain and weakness. He has had a previous L2 and 3 laminectomy. Imaging investigation shows severe circumferential stenosis at L4-5. Epidural injection at this level provided good, but brief pain relief. DESCRIPTION OF PROCEDURE: The patient was brought to the operating room and under endotracheal general anesthesia, was placed in the prone position on a Blane frame, and the back was prepped and draped in a standard fashion. Presumptive incision was marked and an 18-gauge spinal needle was placed at the mid point of the presumptive incision and an x-ray was taken to confirm levels. Skin was infiltrated with local anesthetic. Incision was made. Incision was carried down to the spine where we exposed the L4-5 interspace and deep retractors were placed. Repeat check x-ray was taken and levels were confirmed with Radiology. Microscope was brought in and the remainder of the procedure was done under microscopic visualization. Initially working on the right hand side, a small portion of the trailing edge of the L4 lamina and medial aspect of the inferior articular process were resected with a high- speed bur. Canal was entered in the midline with an angled curette. We detached the ligamentum from the trailing edge of the L4 lamina and the leading edge of the S1 lamina. We then began to decompress working initially inferiorly and medially working out laterally and inferiorly until we entered the lateral recess. We decompressed until a right angle probe would pass easily out the L5 foramen. We then worked proximally decompressing until we were flushed with the medial border of the L5 pedicle. We decompressed the L4 foramen until a right angle probe would pass easily out the foramen. We then moved over to the left hand side where the procedure was repeated. Small portion of the trailing edge of the lamina and IAP were resected with a high-speed bur. Ligamentum was detached. Ligamentum was resected. Working inferiorly and superiorly, we decompressed the lateral recess until we were flushed with the medial border of the L5 pedicle and a right angle probe would pass easily out both the L4 and the L5 foramina. Wound was then profusely irrigated. Gelfoam was placed over the dura. Wound was closed in multiple layers. The patient was awakened and discharged to the recovery room in stable condition. PROCEDURE STATEMENT: I was scrubbed for the entire procedure other than the exposure and closure, which were performed by Dr. Prieto and Dr. Morton. SPECIMENS: None. DRAINS: None. ESTIMATED BLOOD LOSS: 20 mL. Jose Antonio Mancera M.D.,[facility] RDO:[id number] /[id number] [facility] XR LUMBAR SPECIFY 1Von 03-24 XR LUMBAR SPECIFY 1V * * *Final Report* * * DATE OF EXAM: Mar 24 2023 12:29PM [id number] - XR LUMBAR SPECIFY 1V / PROCEDURE REASON: Radiculopathy, lumbar region * * * * Physician Interpretation * * * * TECHNIQUE: Single lateral image of the lumbar spine COUNTING REFERENCE: Lumbosacral junction. Initial lateral view of the lumbar spine demonstrates a needle in place for localization lying dorsal to the L5 vertebral body. Intraoperative lateral view of the lumbar spine demonstrates apparatus to overlie the L5 pars. RESULT: A single lateral image is obtained intraoperatively for surgical planning. A localizing surgical instrument is noted, L4 pars. Image annotated with vertebral body levels and confirmed with the responsible surgeon at the time of interpretation. IMPRESSION: OPERATIVE ASSESSMENT COMMUNICATION: Localization level(s) confirmed with: Dr. Mancera on 03/24/2023 at 1240 time, via phone and Skype during the surgical procedure. [facility]im[facility] Transcribe Date/Time: Mar 24 2023 12:39P Dictated by : ANNA MCKINLEY MD This examination was interpreted and the report reviewed and electronically signed by: ANNA MCKINLEY MD on Mar 24 2023 12:42PM EST [id number] [facility] XR LUMBAR SPECIFY 1V * * *Final Report* * * DATE OF EXAM: Mar 24 2023 11:58AM [id number] - XR LUMBAR SPECIFY 1V / PROCEDURE REASON: Radiculopathy, lumbar region * * * * Physician Interpretation * * * * TECHNIQUE: Single lateral image of the lumbar spine COUNTING REFERENCE: Lumbosacral junction. Initial lateral view of the lumbar spine demonstrates a needle in place for localization lying dorsal to the L5 vertebral body. Intraoperative lateral view of the lumbar spine demonstrates apparatus to overlie the L5 pars. RESULT: A single lateral image is obtained intraoperatively for surgical planning. A localizing surgical instrument is noted, L4 pars. Image annotated with vertebral body levels and confirmed with the responsible surgeon at the time of interpretation. IMPRESSION: OPERATIVE ASSESSMENT COMMUNICATION: Localization level(s) confirmed with: Dr. Mancera on 03/24/2023 at 1240 time, via phone and Skype during the surgical procedure. Chimney Sweeper: [facility] Transcribe Date/Time: Mar 24 2023 12:39P Dictated by : ANNA MCKINLEY MD This examination was interpreted and the report reviewed and electronically signed by: ANNA MCKINLEY MD on Mar 24 2023 12:42PM EST [id number] [facility] XR VERIFY LEVEL [id number] 03-24-2023 XR VERIFY LEVEL L-SPINE-NB * * *Final Report* * * DATE OF EXAM: Mar 24 2023 12:37PM KEM 5642 - XR VERIFY LEVEL L-SPINE-NB / PROCEDURE REASON: Radiculopathy, lumbar region * * * * Physician Interpretation * * * * TECHNIQUE: Single lateral image of the lumbar spine COUNTING REFERENCE: Lumbosacral junction. Initial lateral view of the lumbar spine demonstrates a needle in place for localization lying dorsal to the L5 vertebral body. Intraoperative lateral view of the lumbar spine demonstrates apparatus to overlie the L5 pars. RESULT: A single lateral image is obtained intraoperatively for surgical planning. A localizing surgical instrument is noted, L4 pars. Image annotated with vertebral body levels and confirmed with the responsible surgeon at the time of interpretation. IMPRESSION: OPERATIVE ASSESSMENT COMMUNICATION: Localization level(s) confirmed with: Dr. Mancera on 03/24/2023 at 1240 time, via phone and Skype during the surgical procedure. Chimney Sweeper: [facility] Transcribe Date/Time: Mar 24 2023 12:39P Dictated by : ANNA MCKINLEY MD This examination was interpreted and the report reviewed and electronically signed by: ANNA MCKINLEY MD on Mar 24 2023 12:42PM EST [id number] [facility] CBC W Auto Differential pane l (Bld)on 03-21-2023 Basophils (Bld) [#/Vol] 0.03 10*3/uL Normal <0.11 [facility] Comment on above: Order Comment: Speci men Type: BLOOD SPECIMENOrdering Facility: [facility] Address: [address] [place] [address] Performed By: #### 5 7021-8 ####[facility]ORATORYCLIA [id number] [address] [place] [address] [place] Basophils/100 WBC (Bld) 0.5 % [facility] Comment on above: Order Comment: Speci men Type: BLOOD SPECIMENOrdering Facility: [facility] Address: [address] [place] [address] Performed By: #### 5 7021-8 ####[facility] LABORATORYCLIA [id number] [address] [place] [address] [place] Differential cell count method Nom (Bld) Auto [facility] Comment on above: Order Comment: Speci men Type: BLOOD SPECIMENOrdering Facility: [facility] Address: [address] [place] [address] Performed By: #### 5 7021-8 ####[facility]ORATORYCLIA [id number] [address] [place] [address] [place] Eosinophils (Bld) [#/Vol] 0.16 10*3/uL Normal <0.46 [facility] Comment on above: Order Comment: Speci men Type: BLOOD SPECIMENOrdering Facility: [facility] Address: [address] [place] [address] Performed By: #### 5 7021-8 ####[facility]ORATORYCLIA [id number] [address] [place] [address] [place] Eosinophils/100 WBC (Bld) 2.4 % [facility] Comment on above: Order Comment: Speci men Type: BLOOD SPECIMENOrdering Facility: [facility] Address: [address] [place] [address] Performed By: #### 5 7021-8 ####[facility] LABORATORYCLIA [id number] [address] [place] Erythrocyte distribution width (RBC) [Ratio] 13.2 % Normal 11.5-15.0 [facility] Comment on above: Order Comment: Speci men Type: BLOOD SPECIMENOrdering Facility: [facility] Address: [address] [place] [address] Performed By: #### 5 7021-8 ####[facility] LABORATORYCLIA [id number] [address] [place] [address] [place] Hematocrit (Bld) [Volume fraction] 40.8 % Normal 39.0-51.0 [facility] Comment on above: Order Comment: Speci men Type: BLOOD SPECIMENOrdering Facility: [facility] Address: [address] [place] [address] Performed By: #### 5 7021-8 ####[facility] LABORATORYCLIA [id number] [place] [address] [place] Hemoglobin (Bld) [Mass/Vol] 13.5 g/dL Normal 13.0-17.0 [facility] Comment on above: Order Comment: Speci men Type: BLOOD SPECIMENOrdering Facility: [facility] Address: [address] [place] [address] Performed By: #### 5 7021-8 ####[facility] LABORATORYCLIA [id number] [place] [address] [place] Immature granulocytes (Bld) [#/Vol] 10*3/uL Normal <0.10 [facility] Comment on above: Order Comment: Speci men Type: BLOOD SPECIMENOrdering Facility: [facility] Address: [address] [place] [address] Performed By: #### 5 7021-8 ####[facility] LABORATORYCLIA [id number] [address] [place] [address] [place] Immature granulocytes/100 WBC (Bld) 0.2 % Normal [facility] Comment on above: Order Comment: Speci men Type: BLOOD SPECIMENOrdering Facility: [facility] Address: [address] [place] [address] Performed By: #### 5 7021-8 ####[facility] LABORATORYCLIA [id number] [place] [address] [place] Lymphocytes (Bld) [#/Vol] 1.50 10*3/uL Normal 1.00-4.00 [facility] Comment on above: Order Comment: Speci men Type: BLOOD SPECIMENOrdering Facility: [facility] Address: [address] [place] [address] Performed By: #### 5 7021-8 ####[facility] LABORATORYCLIA [id number] [place] [address] [place] Lymphocytes/100 WBC (Bld) 22.6 % Normal [facility] Comment on above: Order Comment: Speci men Type: BLOOD SPECIMENOrdering Facility: [facility] Address: [address] [place] [address] Performed By: #### 5 7021-8 ####[facility] LABORATORYCLIA [id number] [place] [address] [place] MCH (RBC) [Entitic mass] 29.3 pg Normal 26.0-34.0 [facility] Comment on above: Order Comment: Speci men Type: BLOOD SPECIMENOrdering Facility: [facility] Address: [address] [place] [address] Performed By: #### 5 7021-8 ####[facility] LABORATORYCLIA [id number] [place] [address] [place] MCHC (RBC) [Mass/Vol] 33.1 g/dL Normal 30.5-36.0 [facility] Comment on above: Order Comment: Speci men Type: BLOOD SPECIMENOrdering Facility: [facility] Address: [address] [address] Performed By: #### 5 7021-8 ####[facility] LABORATORYCLIA [id number] [address] [place] MCV (RBC) [Entitic vol] 88.7 fL Normal 80.0-100.0 [facility] Comment on above: Order Comment: Speci men Type: BLOOD SPECIMENOrdering Facility: [facility] Address: [address] [address] Performed By: #### 5 7021-8 ####[facility] LABORATORYCLIA [id number] [place] [address] [place] Monocytes (Bld) [#/Vol] 0.63 10*3/uL Normal <0.87 [facility] Comment on above: Order Comment: Speci men Type: BLOOD SPECIMENOrdering Facility: [facility] Address: [address] [address] Performed By: #### 5 7021-8 ####[facility]ORATORYCLIA [id number] [address] [place] Monocytes/100 WBC (Bld) 9.5 % Normal [facility] Comment on above: Order Comment: Speci men Type: BLOOD SPECIMENOrdering Facility: [facility] Address: [address] Performed By: #### 5 7021-8 ####[facility]ORATORYCLIA [id number] [address] [place] Neutrophils (Bld) [#/Vol] 4.30 10*3/uL Normal 1.45-7.50 [facility] Comment on above: Order Comment: Speci men Type: BLOOD SPECIMENOrdering Facility: [facility] Address: [address] [address] Performed By: #### 5 7021-8 ####[facility]ORATORYCLIA [id number] [address] [place], [place] [address] [place] Neutrophils/100 WBC (Bld) 64.8 % Normal [facility] Comment on above: Order Comment: Speci men Type: BLOOD SPECIMENOrdering Facility: [facility] Address: [address] [place] [address] Performed By: #### 5 7021-8 ####[facility]ORATORYCLIA [id number] [address] [place] [address] [place] Nucleated RBC (Bld) [#/Vol] 10*3/uL Normal <0.01 [facility] Comment on above: Order Comment: Speci men Type: BLOOD SPECIMENOrdering Facility: [facility] Address: [address] [place] [address] Performed By: #### 5 7021-8 ####[facility]ORATORYCLIA [id number] [place] [address] [place] Nucleated RBC/100 WBC (Bld) [Ratio] 0.0 /100 WBC Normal [facility] Comment on above: Order Comment: Speci men Type: BLOOD SPECIMENOrdering Facility: [facility] Address: [address] [place] [address] Performed By: #### 5 7021-8 ####[facility]ORATORYCLIA [id number] [place] [address] [place] Platelet mean volume (Bld) [Entitic vol] 8.8 fL Low 9.0-12.7 [facility] Comment on above: Order Comment: Speci men Type: BLOOD SPECIMENOrdering Facility: [facility] Address: [address] [place] [address] Performed By: #### 5 7021-8 ####[facility]ORATORYCLIA [id number] [place] [id number] [place] Platelets (Bld) [#/Vol] 256 10*3/uL Normal 150-400 [facility] Comment on above: Order Comment: Speci men Type: BLOOD SPECIMENOrdering Facility: [facility] Address: [address] [place] [address] Performed By: #### 5 7021-8 ####[facility]ATORYCLIA [id number] [address] [place] [facility] RBC (Bld) [#/Vol] 4.60 10*6/uL Normal 4.20-6.00 [facility] Comment on above: Order Comment: Speci men Type: BLOOD SPECIMENOrdering Facility: [facility] Address: [address] [place] [address] Performed By: #### 5 7021-8 ####[facility]ATORYCLIA [id number] [address] [place] WBC (Bld) [#/Vol] 6.63 10*3/uL Normal 3.70-11.00 [facility] Comment on above: Order Comment: Speci men Type: BLOOD SPECIMENOrdering Facility: [facility] Address: [address] [place] [address] Performed By: #### 5 7021-8 ####[facility]ATORYCLIA [id number] [address] [place] Basophils (Bld) [#/Vol] 0.03 10*3/uL <0.11 k/uL [facility] Basophils/100 WBC (Bld) 0.5 % [facility] Differential cell count method Nom (Bld) Auto [facility] Eosinophils (Bld) [#/Vol] 0.16 10*3/uL <0.46 k/uL [facility] Eosinophils/100 WBC (Bld) 2.4 % [facility] Erythrocyte distribution width (RBC) [Ratio] 13.2 % 11.5 - 15.0 % [facility] Hematocrit (Bld) [Volume fraction] 40.8 % 39.0 - 51.0 % [facility] Hemoglobin (Bld) [Mass/Vol] 13.5 g/dL 13.0 - 17.0 g/dL [facility] Immature granulocytes (Bld) [#/Vol] <0.10 k/uL [facility] Immature granulocytes/100 WBC (Bld) 0.2 % [facility] Lymphocytes (Bld) [#/Vol] 1.50 10*3/uL 1.00 - 4.00 k/uL [facility] Lymphocytes/100 WBC (Bld) 22.6 % [facility] MCH (RBC) [Entitic mass] 29.3 pg 26.0 - 34.0 pg [facility] MCHC (RBC) [Mass/Vol] 33.1 g/dL 30.5 - 36.0 g/dL [facility] MCV (RBC) [Entitic vol] 88.7 fL 80.0 - 100.0 fL [facility] Monocytes (Bld) [#/Vol] 0.63 10*3/uL <0.87 k/uL [facility] Monocytes/100 WBC (Bld) 9.5 % [facility] Neutrophils (Bld) [#/Vol] 4.30 10*3/uL 1.45 - 7.50 k/uL [facility] Neutrophils/100 WBC (Bld) 64.8 % [facility] Nucleated RBC (Bld) [#/Vol] <0.01 k/uL [facility] Nucleated RBC/100 WBC (Bld) [Ratio] 0.0 /100 WBC [facility] Platelet mean volume (Bld) [Entitic vol] 8.8 fL Low 9.0 - 12.7 fL [facility] Platelets (Bld) [#/Vol] 256 10*3/uL 150 - 400 k/uL [facility] RBC (Bld) [#/Vol] 4.60 10*6/uL 4.20 - 6.00 m/uL [facility] WBC (Bld) [#/Vol] 6.63 10*3/uL 3.70 - 11.00 k/uL [facility] Comprehensive metabolic 2000 panelon 03-21-2023 Albumin [Mass/Vol] 3.9 g/dL Normal 3.9-4.9 [facility] Comment on above: Order Comment: Speci men Type: BLOOD SPECIMENOrdering Facility: [facility] Address: [address] [place] [id number] Performed By: #### 2 4323-8 ####[facility]ORATORYCLIA [id number] [address] [place], [place] [address] [place] ALP [Catalytic activity/Vol] 123 U/L High 38-113 [facility] Comment on above: Order Comment: Speci men Type: BLOOD SPECIMENOrdering Facility: [facility] Address: [address] [place] [address] Performed By: #### 2 4323-8 ####[facility]ORYCLIA [id number] [address] [place], [place] [address] [place] ALT [Catalytic activity/Vol] 21 U/L Normal 10-54 [facility] Comment on above: Order Comment: Speci men Type: BLOOD SPECIMENOrdering Facility: [facility] Address: [address] [place] [address] Performed By: #### 2 4323-8 ####[facility]ORATORYCLIA [id number] [address] [place] [address] [place] Anion gap [Moles/Vol] 8 mmol/L Low 9-18 [facility] Comment on above: Order Comment: Speci men Type: BLOOD SPECIMENOrdering Facility: [facility] Address: [address] [place] [address] Performed By: #### 2 4323-8 ####[facility]ORATORYCLIA [id number] [address] [place] [address] [place] AST [Catalytic activity/Vol] 26 U/L Normal 14-40 [facility] Comment on above: Order Comment: Speci men Type: BLOOD SPECIMENOrdering Facility: [facility] Address: [address] [place] [address] Performed By: #### 2 4323-8 ####[facility]ATORYCLIA [id number] [address] [place] [address] [place] Bilirubin [Mass/Vol] 0.4 mg/dL Normal 0.2-1.3 [facility] Comment on above: Order Comment: Speci men Type: BLOOD SPECIMENOrdering Facility: [facility] Address: [address] Performed By: #### 2 4323-8 ####[facility]ORATORYCLIA [id number] [place] [id number] [place] Calcium [Mass/Vol] 9.6 mg/dL Normal 8.5-10.2 [facility] Comment on above: Order Comment: Speci men Type: BLOOD SPECIMENOrdering Facility: [facility] Address: [address] Performed By: #### 2 4323-8 ####[facility]ATORYCLIA [id number] [address] [place], [place] [address] [place] Chloride [Moles/Vol] 102 mmol/L Normal 97-105 [facility] Comment on above: Order Comment: Speci men Type: BLOOD SPECIMENOrdering Facility: [facility] Address: [address] Performed By: #### 2 4323-8 ####[facility]ATORYCLIA [id number] [place] [address] [place] CO2 [Moles/Vol] 29 mmol/L Normal 22-30 [facility] Comment on above: Order Comment: Speci men Type: BLOOD SPECIMENOrdering Facility: [facility] Address: [address] Performed By: #### 2 4323-8 ####[facility]ATORYCLIA [id number] [place] [address] [place] Creatinine [Mass/Vol] 1.25 mg/dL High 0.73-1.22 [facility] Comment on above: Order Comment: Speci men Type: BLOOD SPECIMENOrdering Facility: [facility] Address: [address] Performed By: #### 2 4323-8 ####[facility]ATORYCLIA [id number] [place] [address] [place] ESTIMATED GLOMERULAR FILTRATION RATE 60 mL/min/1.73m??? Normal >=60 [facility] Comment on above: Order Comment: Asya arriaga Type: BLOOD SPECIMENOrdering Facility: [facility] Address: [address] [place], [place] [address] Result Comment: Silvia mated Glomerular Filtration Rate (eGFR) is calculated using the 2020 CKD-EPI creatinine equation. This equation utilizes serum creatinine, sex, and age as parameters. The creatinine assay has traceable calibration to isotope dilution-mass spectrometry. Refer to KDIGO guidelines for clinical interpretation. In patients with unstable renal function, e.g. those with acute kidney injury, the eGFR may not accurately reflect actual GFR. Performed By: #### 2 4323-8 ####[facility]ATORYCLIA [id number] [place] [address] [place] Glucose [Mass/Vol] 184 mg/dL High 74-99 [facility] Comment on above: Order Comment: Asya arriaga Type: BLOOD SPECIMENOrdering Facility: [facility] Address: [address] [place] [address] Result Comment: The [place] Diabetes Association (ADA) provides guidance for cutoff values for fasting glucose and random glucose. The ADA defines fasting as no caloric intake for at least 8 hours. Fasting plasma glucose results between 100 to 125 mg/dL indicate increased risk for diabetes (prediabetes). Fasting plasma glucose results greater than or equal to 126 mg/dL meet the criteria for diagnosis of diabetes. In the absence of unequivocal hyperglycemia, results should be confirmed by repeat testing. In a patient with classic symptoms of hyperglycemia or hyperglycemic crisis, random plasma glucose results greater than or equal to 200 mg/dL meet the criteria for diagnosis of diabetes. Reference: Standards of Medical Care in Diabetes 2016, [place] [employer] Association. Diabetes Care. 2016.39(Suppl 1). Performed By: #### 2 4323-8 ####[facility]ORATORYCLIA [id number] [place] [address] [place] Potassium [Moles/Vol] 4.7 mmol/L Normal 3.7-5.1 [facility] Comment on above: Order Comment: Speci men Type: BLOOD SPECIMENOrdering Facility: [facility] Address: [address] [address] Performed By: #### 2 4323-8 ####[facility]ORATORYCLIA [id number] [place] [address] [place] Protein [Mass/Vol] 7.5 g/dL Normal 6.3-8.0 [facility] Comment on above: Order Comment: Speci men Type: BLOOD SPECIMENOrdering Facility: [facility] Address: [address] [address] Performed By: #### 2 4323-8 ####[facility] LABORATORYCLIA [id number] [place] [address] [place] Sodium [Moles/Vol] 139 mmol/L Normal 136-144 [facility] Comment on above: Order Comment: Speci men Type: BLOOD SPECIMENOrdering Facility: [facility] Address: [address] [address] Performed By: #### 2 4323-8 ####[facility]ORATORYCLIA [id number] [place] [address] [place] Urea nitrogen [Mass/Vol] 11 mg/dL Normal 9-24 [facility] Comment on above: Order Comment: Speci men Type: BLOOD SPECIMENOrdering Facility: [facility] Address: [address] [address] Performed By: #### 2 4323-8 ####[facility]ORATORYCLIA [id number] [place] [address] [place] Albumin [Mass/Vol] 3.9 g/dL 3.9 - 4.9 g/dL [facility] ALP [Catalytic activity/Vol] 123 U/L High 38 - 113 U/L [facility] ALT [Catalytic activity/Vol] 21 U/L 10 - 54 U/L [facility] Anion gap [Moles/Vol] 8 mmol/L Low 9 - 18 mmol/L [facility] AST [Catalytic activity/Vol] 26 U/L 14 - 40 U/L [facility] Bilirubin [Mass/Vol] 0.4 mg/dL 0.2 - 1 .3 mg/dL [facility] Calcium [Mass/Vol] 9.6 mg/dL 8.5 - 10. 2 mg/dL [facility] Chloride [Moles/Vol] 102 mmol/L 97 - 10 5 mmol/L [facility] CO2 [Moles/Vol] 29 mmol/L 22 - 30 mmol/L [facility] Creatinine [Mass/Vol] 1.25 mg/dL High 0.73 - 1.22 mg/dL [facility] Estimated Glomerular Filtration Rate 60 mL/min/1.73m >=60 mL/min/1.7 3m [facility] Glucose [Mass/Vol] 184 mg/dL High 74 - 99 mg/dL [facility] Potassium [Moles/Vol] 4.7 mmol/L 3.7 - 5.1 mmol/L [facility] Protein [Mass/Vol] 7.5 g/dL 6.3 - 8.0 g/dL [facility] Sodium [Moles/Vol] 139 mmol/L 136 - 144 mmol/L [facility] Urea nitrogen [Mass/Vol] 11 mg/dL 9 - 24 mg/dL [facility] TOT63pe 03-21-2023 ECG01 Ventricular Rate : 9 7 BPM Atrial Rate : 94 BPM P-R Interval : 198 ms QRS Duration : 110 ms Q-T Interval : 367 ms QTC Calculation(Bazett) : 466 ms Calculated P Kaiser : 19 degrees Calculated R Kaiser : -29 degrees Calculated T Kaiser : 98 degrees Sinus arrhythmia Inferior infarct, old Consider anterior infarct, old Abnormal ECG Confirmed by BRAYDON SILVEIRA MD ([id number]) on 03/28/2023 2:40:56 PM NAME : TREY FIGUEROA PID : [id number] : 1950 Gender : Male Race : ORD : Procedure Date : Mar 21 2023 11:18:31 Edit Date : Mar 28 2023 14:41:00 Diagnosis: Sinus arrhythmia Inferior infarct, old Consider anterior infarct, old Abnormal ECG Confirmed by BRAYDON SILVEIRA MD ([id number]) on 03/28/2023 2:40:56 PM Test Reason : Location : 546 : LUPAC Overread By : BRAYDON SILVEIRA MD Edited By : BRAYDON SILVEIRA MD Referred By : MANCERA,R Acquired by : , Normal [facility] HISTORY PHYSICALon HISTORY PHYSICAL HNO ID: [id number] Author: Nena Diaz APRN.OCEANOGRAPHIC METEOROLOGIST Service: ? Author Type: Nurse Practitioner Type: HANDP Filed: 03/24/2023 12:08 PM Note Text: HISTORY AND PHYSICAL EXAMINATION SERVICE DATE: 03/21/2023 SERVICE TIME: 1:40 PM PRIMARY CARE PHYSICIAN: Yasir Aguirre MD REASON FOR VISIT: Trey Figueroa is a 72 year old male who is scheduled for Procedure(s): DECOMPRESSION LAMINECTOMY LUMBAR POSTERIOR LEVEL 1 (Bilateral) at the request of Dr. Leroy Mancera for consultation. My final recommendation will be communicated back to the requesting physician by way of shared medical record or letter. 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 Patient reports no prior COVID-19 infections. CHIEF COMPLAINT: right lower back pain HPI: 72 yo male with h/o right lower back pain for the past few months. Pain is constant. He c/o legs giving out on him. He has h/o previous back surgery in 2011 and 2005. REVIEW OF SYSTEMS: General: No weight loss, malaise or fevers. Neurological: Positive for: headaches. Respiratory: Positive for: asthma. Negative for: prior COVID-19 infection. Cardiovascular: Positive for: hyperlipidemia and hypertension GI: Positive for: GERD : Positive for: frequent urination. Endocrine: Positive for: diabetes mellitus. Hematology: Positive for: anemia. Oncology: No history of CA metastasis, chemo within 30 days, or radiotherapy within 90 days. No history of oncological symptoms or problems. Psych: No history of psychiatric symptoms or problems. Musculoskeletal: Positive for: back pain and joint pain. Skin: Negative for lesions, rash and itching. PAST MEDICAL HISTORY Diagnosis Date Asthma BPH (benign prostatic hyperplasia) GERD (gastroesophageal reflux disease) History of colonic polyps Other hyperlipidemia Paraplegia (HCC) Personal history of DVT (deep vein thrombosis) 03/21/2023 Primary hypertension Pseudophakia of left eye 02/04/2022 PAST SURGICAL HISTORY Procedure Laterality Date BACK SURGERY HX HAND SURGERY HX Left PAST SURGICAL HISTORY OF 02/17/2005 T10-T11 DISCECTOMY FUSION INST (MANCERA) REMV CATARACT EXTRACAP,INSERT LENS Left 01/14/2022 Aim -1.00 REMV CATARACT EXTRACAP,INSERT LENS Left 02/04/2022 AIM -1.00 FAMILY HISTORY Problem Relation Age of Onset No Ocular Disease Father No Ocular Disease Mother Cataract Maternal Grandfather Macular Degen Maternal Grandfather Social History Tobacco Use Smoking status: Former Types: Cigarettes Quit date: 12/23/1994 Years since quittin.2 Smokeless tobacco: Never Vaping Use Vaping Use: Never used Substance Use Topics Alcohol use: Never Drug use: Never Prior to Admission medications as of 03/21/23 1106 Medication Sig Last Dose Taking donepezil (ARICEPT) 10 mg tablet TAKE 1 TABLET BY MOUTH AT BEDTIME EVERY DAY Taking Yes tiZANidine (ZANAFLEX) 4 mg tablet TAKE ONE-HALF TO ONE TABLET BY MOUTH AT BEDTIME EVERY DAY Taking Yes oxybutynin (DITROPAN) 5 mg tablet Take 5 mg by mouth twice daily. Taking Yes naproxen (NAPROSYN) 500 mg tablet TAKE 1 TABLET BY MOUTH TWICE DAILY WITH FOOD OR MILK FOR 10 DAYS Taking Yes Ipratropium [place] (ATROVENT) 21 mcg (0.03 %) nasal spray Taking Yes insulin aspart U-100 (NOVOLOG) 100 unit/mL Inject 11 Units subcutaneously three times daily before meals. Taking Yes insulin glargine (LANTUS) 100 unit/mL injection Inject 40 Units subcutaneously daily at bedtime. Taking Yes atorvastatin (LIPITOR) 40 mg tablet Take 40 mg by mouth once daily. Taking Yes neomycin/polymyxin b/dexametha(MAXITROL 3.5 MG/G-10,000 UNIT/G-0.1 % EYE OINTMENT) right socket only four times a day for a week then twice daily x 1 week, then stop. Taking Yes traMADol (ULTRAM) 50 mg tablet Take by mouth. Taking Yes dutasteride (AVODART) (more content not included)... Normal [facility] HbA1c (Bld)on 03-21-2023 Average glucose Estimated from glycated hemoglobin (Bld) [Mass/Vol] 194 mg/dL Normal [facility] Comment on above: Order Comment: Asya arriaga Type: BLOOD SPECIMENOrdering Facility: [facility] Address: [address] [place] [address] Result Comment: eAG: (Estimated average glucose) is a calculated value from HgbA1c and is screening representative of the average blood glucose level in the last 2-3 month period. Performed By: #### 5 5454-3 ####[facility] LABIA [id number] [place] [address] [place] HbA1c (Bld) [Mass fraction] 8.4 % High 4.3-5.6 [facility] Comment on above: Order Comment: Asya arriaga Type: BLOOD SPECIMENOrdering Facility: [facility] Address: [address] [place] [address] Result Comment: Amer [place] Diabetes Association guidelines indicate that patients with HgbA1c in the range 5.7-6.4% are at increased risk for development of diabetes, and intervention by lifestyle modification may be beneficial. HgbA1c greater or equal to 6.5% is considered diagnostic of diabetes. Performed By: #### 5 5454-3 ####[facility] LABIA [id number] [place] [address] [place] STAPH AUREUS PCRon 3 S. aureus and MRSA panel HAY+probe (Nose) Normal Negative [facility] Comment on above: Order Comment: Asya arriaga Type: SWAB OF INTERNAL NOSEOrdering Facility: [facility] Address: [address] [address] Result Comment: Nega tive for Staphylococcus aureus by PCR. Negative for MRSA by PCR Performed By: #### S APCR ####[facility] LABCLIA [id number] [facility] GAGEDESK [id number] TYPE AND SCREEN,30 DAYon ABO B [facility] HIstorical Ab Scr Status Negative [facility] Rh Nom (Bld) Positive [facility] ABO B [facility] Comment on above: Order Comment: Speci men Type: BLOOD SPECIMEN [facility] Address: [address] [address] Performed By: #### T SCR30 #### [facility] CLIA [id number] [address] [place] [address] HISTORICAL AB SCR STATUS Negative [facility] Comment on above: Order Comment: Speci men Type: BLOOD SPECIMEN [facility] Address: [address] [address] Performed By: #### T SCR30 #### [facility] CLIA [id number] [address] [place] [address] Rh Nom (Bld) Positive [facility] Comment on above: Order Comment: Speci men Type: BLOOD SPECIMEN [facility] Address: [address] [address] Performed By: #### T SCR30 #### [facility] CLIA [id number] [address] [place] [address] CNPNon 03-19-2023 CNPN Telephone (VASILE) TREY FIGUEROA ([id number]) 1950 M Date Time Provider Department 03/19/23 Leroy MANCERA During your visit today, we recorded the following information about you: Pretty Way 03/19/2023 11:43 AM Signed Patient is calling in due to surgery arrival time being to early for him. He would like to speak with the nurse about this matter. Ph. [phone] Louis Mallory RN 03/19/2023 11:58 AM Signed Neuro SPINE CARE COORDINATION QUICK NOTE Spoke with patient and a request for a later start time was sent to the surgery center. Louis Mallory RN 03/19/2023 3:17 PM Signed Neuro SPINE CARE COORDINATION QUICK NOTE Spoke with patient who is awae arrival time is now 9 am per surgery center. Allergies As of Date: 03/19/2023 (No Known Allergies) Date Reviewed: 03/17/2023 Reviewed by: Brenda Charles OD - Fully Assessed Reason for Visit: Information [1328] Prescriptions as of 03/19/2023 - Ipratropium [place] (ATROVENT) 21 mcg (0.03 %) nasal spray - insulin aspart U-100 (NOVOLOG) 100 unit/mL Inject subcutaneously. - amoxicillin-clavulanic acid (AUGMENTIN) 875-125 mg per tablet Take by mouth. - insulin glargine (LANTUS) 100 unit/mL injection Inject subcutaneously. - atorvastatin (LIPITOR) 40 mg tablet Take 40 mg by mouth once daily. - cephALEXin (KEFLEX) 500 mg capsule TAKE 1 CAPSULE BY MOUTH EVERY 6 HOURS for 7 (SEVEN) days - neomycin/polymyxin b/dexametha(MAXITROL 3.5 MG/G-10,000 UNIT/G-0.1 % EYE OINTMENT) right socket only four times a day for a week then twice daily x 1 week, then stop. - traMADol (ULTRAM) 50 mg tablet Take by mouth. - dutasteride (AVODART) 0.5 mg capsule 1 capsule - pantoprazole DR (PROTONIX) 20 mg tablet Take 1 tablet by mouth. - pravastatin (PRAVACHOL) 40 mg tablet 1 tablet Once a day Orally 90 days - erythromycin (ROMYCIN) 5 mg/gram (0.5 %) ophthalmic ointment Use 1 application in the right eye twice daily. - meloxicam (MOBIC) 15 mg tablet 1 tablet - albuterol HFA (PROVENTIL HFA, VENTOLIN HFA) 90 mcg/actuation inhaler Inhale 2 Puffs as instructed every 4 hours as needed. - ammonium lactate (LAC-HYDRIN) 12 % lotion - aspirin 81 mg chewable tablet Take 81 mg by mouth once daily. - dicyclomine (BENTYL) 20 mg tablet 1 tablet - docusate sodium (COLACE) 100 mg capsule 1 capsule as needed - enalapril (VASOTEC) 20 mg tablet Take 20 mg by mouth. - FLOVENT HFA 110 mcg/actuation inhaler twice daily. - hydroCHLOROthiazide (HYDRODIURIL, ESIDRIX) 25 mg tablet 1 tab - hydrOXYzine pamoate (VISTARIL) 50 mg capsule TAKE 1 CAPSULE EVERY 8 HOURS - insulin regular human (NOVOLIN R,HUMULIN R) 100 unit/mL injection 45 units - losartan (COZAAR) 25 mg tablet Take 25 mg by mouth twice daily. - metoprolol tartrate, short acting, (LOPRESSOR) 50 mg tablet Take 100 mg by mouth. - nitroglycerin sublingual (NITROQUICK) 0.4 mg SL tablet Dissolve 0.4 mg under the tongue. - terazosin (HYTRIN) 5 mg capsule Take 10 mg by mouth daily at bedtime. - Lisinopril, Bulk, 100 % powd Take 10 mg by mouth. - amLODIPine (NORVASC) 10 mg tablet Take 10 mg by mouth. - amitriptyline (ELAVIL) 100 mg tablet Take 150 mg by mouth. Meds Comments as of 12/15/2019: Pt did not come with med list, coming from outside of clinic [facility] [place] 12/15/19 Problem List As Of Date 03/19/2023 Noted Resolved Spinal stenosis, lumbar region without neurogen*01/16/2005 Type 2 diabetes mellitus without complication (*02/16/2020 group home current use of insulin (HCC) [Z79.4] 02/16/2020 Chronic pain [G89.29] 02/16/2020 Essential hypertension [I10] 04/29/2013 Moderate persistent asthma, uncomplicated [J45.*02/16/2020 History of colonic polyps [Z86.010] 07/30/2017 Constipation [K59.00] 02/16/2020 Cellulitis and abscess of unspecified site [L03*01/24/2012 Benign prostatic hyperplasia with lower urinary*02/16/2020 Asthma [J45.909] 04/29/2013 Leg swelling [M79.89] 01/24/2012 Type 2 diabetes mellitus without retinopathy (H*02/16/2020 Combined forms of age-related cataract of left *02/16/2020 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] 02/16/2020 Lumbar spondylosis [M47.816] 09/01/2020 GERD (gastroesophageal reflux disease) [K21.9] Paraplegia (HCC) [G82.20] Other hyperlipidemia [E78.49] Neurogenic claudication due to lumbar spinal st*08/28/2022 Radiculitis, lumbosacral [M54.17] 08/28/2022 Urinary incontinence [R32] 10/09/2022 History of spinal cord injury [Z87.828] 10/09/2022 Cauda equina syndrome (HCC) [G83.4] 10/09/2022 Encounter Status:Closed by LOUIS MALLORY on 03/19/23 [facility] 03-17-2023 ROLAND Telephone (NIQ) TREY FIGUEROA ([id number]) 1950 M Date Time Provider Department 03/17/23 Leroy MANCERA During your visit today, we recorded the following information about you: Felisa Hilario 03/17/2023 12:05 PM Signed Zenaida is calling from [facility] and she is trying to set up transportation to bring the patient for surgery. She needs to know what time the surgery and if someone needs to be with him. Call back # [phone] Louis Mallory RN 03/17/2023 1:08 PM Signed Neuro SPINE CARE COORDINATION QUICK NOTE Spoke with [facility] and answered all questions. 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 - amoxicillin-clavulanic acid (AUGMENTIN) 875-125 mg per tablet Take by mouth. - insulin glargine (LANTUS) 100 unit/mL injection Inject subcutaneously. - atorvastatin (LIPITOR) 40 mg tablet Take 40 mg by mouth once daily. - cephALEXin (KEFLEX) 500 mg capsule TAKE 1 CAPSULE BY MOUTH EVERY 6 HOURS for 7 (SEVEN) days - neomycin/polymyxin b/dexametha(MAXITROL 3.5 MG/G-10,000 UNIT/G-0.1 % EYE OINTMENT) right socket only four times a day for a week then twice daily x 1 week, then stop. - traMADol (ULTRAM) 50 mg tablet Take by mouth. - dutasteride (AVODART) 0.5 mg capsule 1 capsule - pantoprazole DR (PROTONIX) 20 mg tablet Take 1 tablet by mouth. - pravastatin (PRAVACHOL) 40 mg tablet 1 tablet Once a day Orally 90 days - erythromycin (ROMYCIN) 5 mg/gram (0.5 %) ophthalmic ointment Use 1 application in the right eye twice daily. - meloxicam (MOBIC) 15 mg tablet 1 tablet - albuterol HFA (PROVENTIL HFA, VENTOLIN HFA) 90 mcg/actuation inhaler Inhale 2 Puffs as instructed every 4 hours as needed. - ammonium lactate (LAC-HYDRIN) 12 % lotion - aspirin 81 mg chewable tablet Take 81 mg by mouth once daily. - dicyclomine (BENTYL) 20 mg tablet 1 tablet - docusate sodium (COLACE) 100 mg capsule 1 capsule as needed - enalapril (VASOTEC) 20 mg tablet Take 20 mg by mouth. - FLOVENT HFA 110 mcg/actuation inhaler twice daily. - hydroCHLOROthiazide (HYDRODIURIL, ESIDRIX) 25 mg tablet 1 tab - hydrOXYzine pamoate (VISTARIL) 50 mg capsule TAKE 1 CAPSULE EVERY 8 HOURS - insulin regular human (NOVOLIN R,HUMULIN R) 100 unit/mL injection 45 units - losartan (COZAAR) 25 mg tablet Take 25 mg by mouth twice daily. - metoprolol tartrate, short acting, (LOPRESSOR) 50 mg tablet Take 100 mg by mouth. - nitroglycerin sublingual (NITROQUICK) 0.4 mg SL tablet Dissolve 0.4 mg under the tongue. - terazosin (HYTRIN) 5 mg capsule Take 10 mg by mouth daily at bedtime. - Lisinopril, Bulk, 100 % powd Take 10 mg by mouth. - amLODIPine (NORVASC) 10 mg tablet Take 10 mg by mouth. - amitriptyline (ELAVIL) 100 mg tablet Take 150 mg by mouth. 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 of insulin (HCC) [Z79.4] 02/16/2020 Chronic pain [G89.29] 02/16/2020 Essential hypertension [I10] 04/29/2013 Moderate persistent asthma, uncomplicated [J45.*02/16/2020 History of colonic polyps [Z86.010] 07/30/2017 Constipation [K59.00] 02/16/2020 Cellulitis and abscess of unspecified site [L03*01/24/2012 Benign prostatic hyperplasia with lower urinary*02/16/2020 Asthma [J45.909] 04/29/2013 Leg swelling [M79.89] 01/24/2012 Type 2 diabetes mellitus without retinopathy (H*02/16/2020 Combined forms of age-related cataract of left *02/16/2020 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] 02/16/2020 Lumbar spondylosis [M47.816] 09/01/2020 GERD (gastroesophageal reflux disease) [K21.9] Paraplegia (HCC) [G82.20] Other hyperlipidemia [E78.49] Neurogenic claudication due to lumbar spinal st*08/28/2022 Radiculitis, lumbosacral [M54.17] 08/28/2022 Urinary incontinence [R32] 10/09/2022 History of spinal cord injury [Z87.828] 10/09/2022 Cauda equina syndrome (HCC) [G83.4] 10/09/2022 Encounter Status:Closed by LOUIS MALLORY on 03/17/23 [facility] 03-14-2023 [facility] Telephone (NIQ) TREY FIGUEROA ([id number]) 1950 M Date Time Provider Department 03/14/23 Leroy MANCERA During your visit today, we recorded the following information about you: Stephanie Burger [facility] 03/14/2023 9:38 AM Signed Patient called; states he thought his transportation had been cancelled for upcoming pre-ops and surgery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 By Mouth every day. nitroglycerin (Nitro 0.4 mg Tab) 1 Tablets Sublingual every 5 minutes as needed Chest pain. omeprazole (omeprazole 40 mg Cap-DR) 1 Capsules By Mouth every day. Refills: 2. terazosin (terazosin 10 mg Cap) 2 Capsules By Mouth once a day (at bedtime). tizanidine (tiZANidine 4 mg Tab) 1 Tablets By Mouth every 8 hours as needed Spasm. tramadol (traMADOL 50 mg Tab) 2 Tablets By Mouth every day as needed for pain. Care Team Members: Attending Physician: Daniel JURADO MD Consulting Physician: Referring Physician: Daniel JURADO MD Follow up: With: Address: When: Daniel JURADO [address] [place], [place] [id number] Business (1) Within 2 to 4 weeks With: Address: When: Daniel JURADO [address] [place], [place] [id number] Business (1) Patient Education Information: [facility] IntraOperative Documentson 0 02-12-2023 IntraOperative Documents [id number]:127 [facility] Main OR Intraoperative Recor don 02-12-2023 Main OR Intraoperative Record IntraOp Document Type FTURO Summary Primary Physician: Daniel JURADO MD Finalized Date/Time: 02/12/23 11:38:54 Pt. Name: TREY FIGUEROA/Sex: 1950 Male Med Rec #: [id number] Physician: Daniel JURADO MD Financial #: [id number] Pt. Type: O Room/Bed: / Admit/Disch: 02/12/23 10:14:19 - Institution: Case Times FTURO Entry 1 Patient Times In Room 02/12/23 11:18:00 Out Room 02/12/23 11:35:00 Procedure Times Start 02/12/23 11:21:00 Stop 02/12/23 11:30:00 Anesthesia Times Last Modified By: Hernandez NORTON, Lisa ROYAL 02/12/23 11:27:17 Case Attendance FTURO Entry 1 Entry 2 Entry 3 Case Attendee Daniel JURADO MD RN, CNOR, Mellissa SHAH, Sara Gonzalez Role Performed Surgeon - Primary Prekindergarten Teacher - Primary Scrub - Primary Time In 02/12/23 11:18:00 02/12/23 11:18:00 02/12/23 11:18:00 Time Out 02/12/23 11:35:00 02/12/23 11:35:00 02/12/23 11:35:00 Procedure CYSTOSCOPY LOCAL(.) CYSTOSCOPY LOCAL(.) CYSTOSCOPY LOCAL(.) Comments Last Modified By: Hernandez NORTON, CNOR, Hernandez NORTON, CHRISTOOR, Hernandez NORTON, CHRISTOOR, Lisa 02/12/23 Lisa 02/12/23 Lisa 02/12/23 11:28:03 11:28:03 11:28:03 Surgical Procedures FTURO Entry 1 Procedure Description Procedure CYSTOSCOPY LOCAL Modifiers . Surgeon Description CYSTOSCOPY LOCAL Primary Procedure Yes Primary Surgeon Daniel JURADO MD Start 02/12/23 11:21:00 Stop 02/12/23 11:30:00 Anesthesia Type Local Surgical Service Urology Wound Class 2 - Clean-Contaminated Last Modified By: CHRISTO Ng RNOR, Lisa 02/12/23 11:28:01 General Case Data FTURO Pre-Care Text: Classifies surgical wound, implements aseptic technique, initiates traffic control Entry 1 Case Information OR URO 1 FT Case Level None Wound Class 2 - Clean-Contaminated Specialty Urology Preop Diagnosis BPH WITH OBSTRUCTION Postop Same As Preop Yes Postop Diagnosis BPH WITH OBSTRUCTION Outcomes Met? Yes Last Modified By: LELE Ng RN, Lisa 02/12/23 11:28:15 Post-Care Text: The patient is free from signs and symptoms of infection EU IntraOp - FTURO Pre-Care Text: Implements protective measures prior to operative or invasive procedure, confirms identity before the operative or invasive procedure, verifies operative procedure, surgical site, and laterality Entry 1 EU Perioperative Protocols Procedure(s) CYSTOSCOPY LOCAL(.) Patient Identity Birthday, ID Band Verified (select at Check, Patient least 2): Participation Consents / H and P HandP, Surgery/Procedure Operative Site N/A Verified Consent Marking Verified Surgical Site Yes Laterality Verified n/a Verified Procedure Verified Yes Correct Patient Yes Position Verified Availability Equipment Time Out Daniel JURADO MD, Verified (If Participants Hernandez NORTON, CHRISTOOR, Applicable) Mellissa Gonzalez CST, Julie A Time Out Complete 02/12/23 11:20:00 Allergies Reviewed? Yes Allergies Reviewed Self/Patient With Body Position Supine Prep Area penis Prep Agents Betadine Solution Skin. Condition Unable to Visualize Additional FISH Specimens Comment and culture Specimens Collected Vitals - EU Blood Pressure 92/59 Pulse 94 bpm Respirations SPO2 EBL 0 IandO - EU Total Intake 0 Total Output 0 Outcomes Met? Yes Last Modified By: LELE Ng RN, Lisa 02/12/23 11:35:11 Post-Care Text: The patient is free from signs and symptoms of injury caused by extraneous objects Sign Out FTURO Entry 1 Before Patient Leaves OR Nurse verbally Yes Nurse verbally n/a confirms with the confirms with the team the name of team that the procedure(s) instrument, sponge, recorded and needle counts are correct (or N/A) Nurse verbally Yes Nurse verbally n/a confirms with the confirms with the team how the team whether there specimen is labeled are any equipment (including patient problems to be name), if applicable addressed Sign Out Complete 02/12/23 11:34:00 Last Modified By: LELE Ng RN, Ruthann 02/12/23 11:34:13 Case Comments Finalized By: LELE Ng RN, Ruthann Document Signatures Signed By: LELE Ng RN, Ruthann 02/12/23 11:35 LELE Ng RN, Ruthann 02/12/23 11:38 Normal [facility] Main OR Preoperative Recordo n 02-12-2023 Main OR Preoperative Record Holding Area Document Type FTURO Summary Primary Physician: Daniel JURADO MD Finalized Date/Time: 02/12/23 11:22:28 Pt. Name: TREY FIGUEROA/Sex: 1950 Male Med Rec #: [id number] Physician: Daniel JURADO MD Financial #: [id number] Pt. Type: O Room/Bed: / Admit/Disch: 02/12/23 10:14:19 - Institution: Case Times Holding FTURO Pre-Care Text: Verifies consent for planned procedure, identifies individual values and wishes concerning care, includes family members in perioperative teaching Secures patient's records' belongings, and valuables, maintains patient's dignity and privacy, and maintains patient confidentiality Entry 1 In Holding 02/12/23 10:29:00 Outcomes Met? Yes Last Modified By: Daniela Garcia LPN 02/12/23 10:29:19 Post-Care Text: The patient participates in decisions affecting his or her perioperative plan of care The patient's right to privacy is maintained Surgery Checklist FTURO Entry 1 Patient Birthday, Patient Procedure History and Physical, Identification: Participation Verification: Surgical Consent, With Patient NPO after Midnight: No Personal Items: Glasses Personal Items clothes Limitations: na Comment: Complaints of Pain: No Pain Comment: na Skin Integrity Intact, [place], Warm, & Dry Vitals - EU Blood Pressure 92/59 Pulse 59 bpm Respirations 16 br/min SPO2 94 % RN Reviewed Yes Last Modified By: LELE Ng RN, Ruthann 02/12/23 11:22:27 Finalized By: LELE Ng RN, Ruthann Document Signatures Signed By: Daniela Garcia LPN 02/12/23 10:32 Daniela Garcia LPN 02/12/23 10:33 LELE Ng RN, Ruthann 02/12/23 11:22 Normal [facility] Outpatient Surgery Discharge Instructionon 02-12-2023 Outpatient Surgery Discharge Instruction [address] [address] Patient Discharge Instructions PERSON INFORMATION Name: RTEY FIGUEROA Date of : 1950 Current Date: 02/12/2023 11:32:32 PHYSICIANS Admitting Physician: Daniel JURADO MD Comment: Discharge Diagnosis: TREY FIGUEROA has been given the following list of follow-up instructions, prescriptions, and patient education materials: IF UNABLE TO CONTACT YOUR PHYSICIAN AND YOU FEEL IT IS AN EMERGENCY, GO TO THE NEAREST EMERGENCY ROOM OR CALL 911 Follow up: With: Address: When: [place] [id number] [facility] () Within 2 to 4 weeks With: Address: When: [place] [id number] [facility] () Comment: PATIENT EDUCATION INFORMATION Instructions: I, TREY FIGUEROA, have received the attached patient education materials/instructions and have verbalized understanding: May we do a follow up call? Yes No I was present when discharge instructions were given Patient Signature Date Clinican/Nurse Signature Date You may receive a survey from [employer] asking you to rate your care experience. Your feedback is important and will help us understand what we do well and how we can improve the quality of care we provide to you, your loved ones and our community. It?s an honor to serve you. Thank you for choosing [facility] Normal [facility] Patient Educationon 02-13-20 Patient Education Normal [facility] Urinalysison 02-12-2023 Bacteria LM Ql (Urine sed) 2+ /HPF Abnormal Trace [facility] Comment on above: Performed By: #### 1 [id number] ####[facility] [facility] [address] [place] [place] [address] Bilirubin Ql (U) Negative Normal Negative [facility] Comment on above: Performed By: #### 1 [id number] ####[facility] [address] [place] [address] Clarity (U) SL CLOUDY Abnormal Clear [facility] Comment on above: Performed By: #### 1 [id number] ####[facility] [address] [place] [address] Color (U) STRAW Abnormal Yellow [facility] Comment on above: Performed By: #### 1 [id number] ####[facility] [address] [place] [address] Epithelial cells.squamous LM.HPF (Urine sed) [#/Area] 0-2 Normal 0-2 [facility] Comment on above: Performed By: #### 1 [id number] ####[facility] [address] [place] [address] Glucose Test strip (U) [Mass/Vol] Negative Normal Negative [facility] Comment on above: Performed By: #### 1 [id number] ####[facility] [address] [place] [address] Hemoglobin Ql (U) Negative Normal Negative [facility] Comment on above: Performed By: #### 1 [id number] ####[address] [address] Ketones (U) [Mass/Vol] Negative Normal Negative [facility] Comment on above: Performed By: #### 1 [id number] ####[address] [address] [place].plasma/[place] .RBC (Bld) [Mass ratio] 0-3 Normal 0-3 [facility] Comment on above: Performed By: #### 1 [id number] ####[facility] [address] [place] [address] Nitrite Ql (U) Negative Normal Negative [facility] Comment on above: Performed By: #### 1 [id number] ####[facility] [address] [place] [address] pH (U) 6.5 [pH] Invalid Interpretation Code 5.0-9.0 [facility] Comment on above: Performed By: #### 1 [id number] ####[facility] [address] [place] [address] Protein (U) [Mass/Vol] Negative Normal Negative [facility] Comment on above: Performed By: #### 1 [id number] ####[address] [address] Specific gravity (U) [Rel density] 1.010 Invalid Interpretation Code 1.005-1.03 0 [facility] Comment on above: Performed By: #### 1 [id number] ####[facility] [address] [place] [address] Type of Urine collection method Cysto Normal [facility] Comment on above: Performed By: #### 1 [id number] ####[facility] [address] [place] [address] Urobilinogen Qn (U) 0.2 {Dudley'U}/dL Normal 0.0-1.0 [facility] Comment on above: Performed By: #### 1 [id number] ####[facility] [address] [place] [address] WBC Auto Ql (U) 3+ Abnormal Negative [facility] Comment on above: Performed By: #### 1 [id number] ####[facility] [address] [place] [address] WBC LM.HPF (Urine sed) [#/Area] 16-25 Abnormal 0-5 [facility] Comment on above: Performed By: #### 1 [id number] ####[facility] [address] [place] [address] [facility] Fish and Urine Cyt o ( Labs)on 02-12-2023 [facility] Method of Extraction Bladder Wash Normal [facility] Comment on above: Performed By: #### 1 [id number] #### [facility] Laboratory [address] [place] [address] [facility] Number of Jars 1 Invalid Interpretation Code [facility] Comment on above: Performed By: #### 1 [id number] #### [facility] [address] [place] [address] [facility] Specimen Urine Normal [facility] Comment on above: Performed By: #### 1 [id number] #### [facility] [address] [place] [address] [facility] Type of Service Technical Only Normal [facility] Comment on above: Performed By: #### 1 [id number] #### [facility] [address] [place] [address] Patient Educationon 01-13-20 Patient Education Urology Urinary Incontinence Urinary incontinence refers to a condition in which a person is unable to control where and when to pass urine. A person with this condition will urinate when he or she does not mean to (involuntarily). What are the causes? This condition may be caused by: ? Medicines. ? Infections. ? Constipation. ? Overactive bladder muscles. ? Weak bladder muscles. ? Weak pelvic floor muscles. These muscles provide support for the bladder, intestine, and, in women, the uterus. ? Enlarged prostate in men. The prostate is a gland near the bladder. When it gets too big, it can pinch the urethra. With the urethra blocked, the bladder can weaken and lose the ability to empty properly. ? Surgery. ? Emotional factors, such as anxiety, stress, or post-traumatic stress disorder (PTSD). ? Pelvic organ prolapse. This happens in women when organs shift out of place and into the vagina. This shift can prevent the bladder and urethra from working properly. What increases the risk? The following factors may make you more likely to develop this condition: ? Older age. ? Obesity and physical inactivity. ? and childbirth. ? Menopause. ? Diseases that affect the nerves or spinal cord (neurological diseases). ? Long-term (chronic) coughing. This can increase pressure on the bladder and pelvic floor muscles. What are the signs or symptoms? Symptoms may vary depending on the type of urinary incontinence you have. They include: ? A sudden urge to urinate, but passing urine involuntarily before you can get to a bathroom (urge incontinence). ? Suddenly passing urine with any activity that forces urine to pass, such as coughing, laughing, exercise, or sneezing (stress incontinence). ? Needing to urinate often, but urinating only a small amount, or constantly dribbling urine (overflow incontinence). ? Urinating because you cannot get to the bathroom in time due to a physical disability, such as arthritis or injury, or communication and thinking problems, such as Alzheimer disease (functional incontinence). How is this diagnosed? This condition may be diagnosed based on: ? Your medical history. ? A physical exam. ? Tests, such as: ? Urine tests. ? X-rays of your kidney and bladder. ? Ultrasound. ? CT scan. ? Cystoscopy. In this procedure, a health care provider inserts a tube with a light and camera (cystoscope) through the urethra and into the bladder in order to check for problems. ? Urodynamic testing. These tests assess how well the bladder, urethra, and sphincter can store and release urine. There are different types of urodynamic tests, and they vary depending on what the test is measuring. To help diagnose your condition, your health care provider may recommend that you keep a log of when you urinate and how much you urinate. How is this treated? Treatment for this condition depends on the type of incontinence that you have and its cause. Treatment may include: ? Lifestyle changes, such as: ? Quitting smoking. ? Maintaining a healthy weight. ? Staying active. Try to get 150 minutes of moderate-intensity exercise every week. Ask your health care provider which activities are safe for you. ? Eating a healthy diet. ? Avoid high-fat foods, like fried foods. ? Avoid refined carbohydrates like white bread and white rice. ? Limit how much alcohol and caffeine you drink. ? Increase your fiber intake. Foods such as fresh fruits, vegetables, beans, and whole grains are healthy sources of fiber. ? Pelvic floor muscle exercises. ? Bladder training, such as lengthening the amount of time between bathroom breaks, or using the bathroom at regular intervals. ? Using techniques to suppress bladder urges. This can include distraction techniques or controlled breathing exercises. ? Medicines to relax the bladder muscles and prevent bladder spasms. ? Medicines to help slow or prevent the growth of a man's prostate. ? Botox injections. These can help relax the bladder muscles. ? Using pulses of electricity to help change bladder reflexes (electrical nerve stimulation). ? For women, using a medical administrator to prevent urine leaks. This is a small, tampon-like, disposable device that is inserted into the urethra. ? Injecting collagen or carbon beads (bulking agents) into the urinary sphincter. These can help thicken tissue and close the bladder opening. ? Surgery. Follow these instructions at home: Lifestyle ? Limit alcohol and caffeine. These can fill your bladder quickly and irritate it. ? Keep yourself clean to help prevent odors and skin damage. Ask your doctor about special skin creams and cleansers that can protect the skin from urine. ? Consider wearing pads or adult diapers. Make sure to change them regularly, and always change them right after experiencing incontinence. General instructions ? Take lrhz-tss-kydacbx and prescription medicines only as (more content not included)... Normal [facility] Urology Office/Clinic Noteon 01-13-2023 Urology Office/Clinic Note Chief Complaint Establish care HPI Staff Trey is a 72 y/o male here to establish care. Previous DX: BPH, Urge incontinence. Pt is on doxazosin and dutasteride. Pt states he falls roughly 3-5 times a day but never gets evaluated after a fall. Dysuria: _denies Incomplete bladder emptying: _denies Hematuria: _denies Frequency: _hourly Urgency: _yes Nocturia: _1-2x Stream: _steady-weak Leaking: _yes Post void dripping: _denies Wearing pads/ Depends: _denies Urge incontinence: _yes Stress incontinence: _denies Incontinence without Sensory Awareness: _denies Abdominal pain: _denies Flank pain: _denies Sexual complaints: _ History of Present Illness I have reviewed and verified the staff HPI to be accurate for this encounter. I have reviewed the previous health record information and history for this patient from Dr. Jurado There have been no associated fever, chills, flank pain, or blood in the urine. Denies any urinary infections since last encounter. Review of Systems PHQ Score Initial Depression Screen Score: 0 ROS - Provider Constitutional: denies weight loss, denies hot flashes. Eyes: denies eye problems. Gastrointestinal: denies nausea, denies vomiting. Cardiovascular: denies chest pain or angina. Integumentary: no dryness Musculoskeletal: denies musculoskeletal symptoms. ENMT: denies otolaryngeal symptoms. Respiratory: no shortness of breath. Heme/Lymph: denies easy bleeding tendency, denies easy bruising tendency. Psychiatric: no confusion, no anxiety. Genitourinary: denies dysuria, denies hematuria, denies discharge, denies urinary frequency, denies urinary hesitancy, denies nocturia, denies incontinence, denies genital sores, denies decreased libido, and denies erectile dysfunction. Physical Exam Vitals & Measurements BP: 125/65 HT: 78 in HT: 198 cm WT: 144 kg WT: 316.8 lb BMI: 36.73 General Appearance: alert, no distress, well nourished, well developed male. Genitourinary: normal scrotum, normal testes, normal urethra, normal epididymis, normal vas deferens/spermatic cord. Flank Pain: none. Bladder: nonpalpable. Assessment/Plan 1. BPH with obstruction/lower urinary tract symptoms (N40.1: Benign prostatic hyperplasia with lower urinary tract symptoms) PT was unable to leave a UA today currently taking Dutasteride 0.5mg QID, Terazosin 10mg qd at last office encounter it was discussed with pt having a cysto done to take a look into his bladder to see what surgical intervention would give him the best results, however pt no showed for the cystoscopy. PT is here today c/o frequency, leakage etc discussed the importance of having the cysto done so that we can see which surgical intervention will be best for him. ABX will be sent to pt's pharmacy also pt will be given lab order to have his PSA done since our office could not locate any prior PSA after several requests made to his PCP to obtain these records. The risks and benefits for cystoscopy have been discussed. The risks include bleeding, infection, and irritation of the bladder and urinary channel, among others. The patient, after being informed of procedural details and after questions have been answered, wishes to proceed. Full informed consent has been obtained. Will order Local anesthesia. All questions and concerns were discussed. Pt acknowledge and understands. Pt will call our office with any changes in urinary symptoms. 2. Urge incontinence (N39.41: Urge incontinence) Other obstructive and reflux uropathy (N13.8: Other obstructive and reflux uropathy) Establishing care with this patient apparently had this remote history of bladder tumor but not sure where but he wants to have the care reestablish so he is due for a cystoscopy which was supposed to have done [address] Marc but the patient no showed so he is here now and I believe we should arrange it in the future soon. He is a diabetic probably accounts for a lot of his problems but he does have back issues as well and does walk very well. So a diabetic insulin-dependent with previous back surgery 5 years ago with poor ability to walk this remote bladder history plan PSA cystoscopy possible FISH cytology. Documentation recorded by the scribe, Fina Bango, accurately reflects the services(s) I performed and decisions made by me. Authenticated by Dr. Jurado on 01/13/2023 14:08:21. Follow-up With When Contact Information RHIANNON CHARLES, Daniel Mcelroy, URL [address] [facility] [place] [address]- Additional Instructions: Patient Education Urinary Incontinence Problem List/Past Medical History Ongoing Arthritis BPH with obstruction/lower urinary tract symptoms Diabetes Heart disease Heart murmur Hypertension Liver disease Urge incontinence Historical No qualifying data Procedure/Surgical History CE - Cataract extraction, Colonoscopy, Procedure on back. Medications Albuterol (Eqv-ProAir HFA), 2 puff(s), Inhalation, q6hr, PRN, Unable to (more content not included)... Normal [facility] Comment on above: Result Comment: Elec tronically Signed By: Daniel JURADO MD\.br\Date and Time Signed: 01/13/23 14:08 EST\.br\Electronically Co-Signed By: Laney Justin\.br\Date and Time Co-Signed: 01/13/23 13:34 EST Glucose Glucometer (BldC) [M ass/Vol]Ordered By: Joselito Webb on 01-01-2023 Glucose [Mass/Vol] 83 mg/dL [facility] Comment on above: Random Glucose Refer ence Range is dependent on time and content of last meal. Glucose of more than 200 mg/dL in a nonstressed, ambulatory subject supports the diagnosis of Diabetes Mellitus. Glucose Poct Glucometerson 0 01-01-2023 Glucose [Mass/Vol] 83 mg/dL Normal [facility] Comment on above: Result Comment: [place] Glucose Reference Range is dependent on time and content of last meal. Glucose of more than 200 mg/dL in a nonstressed, ambulatory subject supports the diagnosis of Diabetes Mellitus. PERFORMED BY: [facility] [address] [place] [address] PATHOLOGIST REEL SLITTER THERESA CHOUDHARY M.D. Performed By: #### G FAWN #### Point of Care testing , Reji 01-01-2023 L ------- Specimen: [id number] Received: 01/01/23 Status: CASSIDY Porterkeli Num: [id number] Spec Type: Surgical Subm Dr: Joselito Webb MD Tissues: A Esophagus Biopsy (ESOPHAGUS BX) Procedures: HE/2, Gross/Micro L4, GMS II Dark, AE1-AE3 Age/ Patient Sex Location Account Attending Physician Trey Figueroa Sr 72/[place] [id number] Joselito Webb MD SPEC NUM: [id number] RECD: 01/01/23 STATUS: CASSIDY PORTERKeli NUM: [id number] ADITHYA: 01/01/[address]: Joselito Webb MD ENTERED: 01/01/23 [facility] DR: SPEC TYPE: Surgical DEPT: S ORDERED: HE/2, Gross/Micro L4, GMS II Dark, AE1-AE3 ORDERED: HE/2, Gross/Micro L4, GMS II Dark, AE1-AE3 Pathological Diagnosis Esophagus, biopsy: - Squamous mucosa with focal chronic inflammation and a detached fragment of granulation tissue. - Negative for dysplasia or malignancy in sections examined. See comment. - No evidence for viral cytopathic changes or GMS-positive fungal microorganisms. Comment: The findings may represent an erosion/ulcer. If a significant lesion is clinically suspected additional biopsies are recommended. Clinical Information Dysphasia Gross Description Received in formalin labeled with the patient's name, number and esophagitis biopsy are two fragments of soft lemon tissue averaging 0.2 cm. Entirely submitted in one cassette labeled A1. Microscopic Description Two glass slides with H E stained material have been examined. Immunohistochemical and special stains are performed with adequate controls on tissue block A1. Pancytokeratin highlights degenerated cells within the granulation tissue, negative for abnormal pattern of distribution. GMS is negative for fungal microorganisms. The microscopic findings support Specimen: [id number] Received: 01/01/23 Status: CASSIDY Chirag Num: [id number] Spec Type: Surgical Subm Dr: Joselito Webb MD Tissues: A Esophagus Biopsy (ESOPHAGUS BX) Procedures: HE/2, Gross/Micro L4, GMS II Dark, AE1-AE3 Patient: Edwin Figueroaamanda Adams Sr [id number] (Continued) Specimen: [id number] Received: 01/01/23 (Continued) Microscopic Description (Continued) Signed (signature on file) Franci Bautista MD 01/02/23 1757 Specimen: [id number] Received: 01/01/23 Status: CASSIDY Chirag Num: [id number] Spec Type: Surgical Subm Dr: Joselito Webb MD Tissues: A Esophagus Biopsy (ESOPHAGUS BX) Procedures: HE/2, Gross/Micro L4, GMS II Dark, AE1-AE3 Patient: HenryTrey Sr [id number] (Continued) Specimen: [id number] Received: 01/01/23 (Continued) Microscopic Description (Continued) the above pathologic diagnosis. The use of one or more reagents in the above tests is regulated as an analyte specific reagent (ASR). The performance characteristics were determined by the [facility]. Immunohistochemistry assays have not been validated on decalcified tissue. Results should be interpreted with caution given the possibility of false negative results on decalcified specimens. They have not been cleared by the [place] Food and Drug Administration. The FDA has determined that such clearance or approval is not necessary. CPT Codes 24258, 48373, 53041 Specimen: [id number] Received: 01/01/23 Status: CASSIDY Chirag Num: [id number] Spec Type: Surgical Subm Dr: Joselito Webb MD Tissues: A Esophagus Biopsy (ESOPHAGUS BX) Procedures: HE/2, Gross/Micro L4, GMS II Dark, AE1-AE3 Patient: Trey Figueroa [id number] (Continued) Sign (more content not included)... [facility] 12-30-2022 CNPN Telephone (NIQ) TREY FIGUEROA ([id number]) 1950 M Date Time Provider Department 12/30/22 Leroy MANCERA During your visit today, we recorded the following information about you: Cheryl Elizabeth Learning Disabilities Teacher 12/30/2022 11:05 AM Signed Pt is calling to schedule surgery Please call back [phone] Louis Mallory RN 01/01/2023 1:38 PM Addendum Neuro SPINE CARE COORDINATION SURGERY SCHEDULING Patient accepts surgery date of 03/24/[address] Mancera at [facility]. Planned procedure is L4-5 bilateral laminotomy and foraminotomies.. PACC will be scheduled by PACC schedulers. Medications reviewed : Yes}. Meds to be stopped prior to surgery : NSAIDS, ASA, and Vitamins and supplements. Additional pre op clearances needed : none. Any implanted devices : No. Transplant History Patient will get optimization lab work : HgbA1C. Questions answered. Patient verbalizes understanding via teach back. [address] 01/31/2023 1:39 PM Signed Patient is calling in with questions about the info below Louis Mallory RN 01/31/2023 3:08 PM Signed Neuro SPINE CARE COORDINATION QUICK NOTE Attempted to return patients call. Left voicemail to call office. Louis Mallory RN 02/03/2023 10:50 AM Signed Neuro SPINE CARE COORDINATION QUICK NOTE Attempted to return patients call. Left voicemail to call office. Ksenia Nieto [facility] 02/10/2023 9:39 AM Signed Patient returned call. [phone] Donna Hobbs RN 02/10/2023 11:34 AM Signed Neuro SPINE CARE COORDINATION QUICK NOTE Returned call to patient. Advised RN is out of the office and will call back next week to discuss scheduling surgery. General post op questions answered. He voiced appreciation, no further questions. Allergies As of Date: 12/30/2022 (No Known Allergies) Date Reviewed: 11/27/2022 Reviewed by: Yuliana Rodriguez MA - Fully Assessed Reason for Visit: Schedule Surgery [1330] Prescriptions as of 02/19/2023 - Ipratropium [place] (ATROVENT) 21 mcg (0.03 %) nasal spray - insulin aspart U-100 (NOVOLOG) 100 unit/mL Inject subcutaneously. - amoxicillin-clavulanic acid (AUGMENTIN) 875-125 mg per tablet Take by mouth. - insulin glargine (LANTUS) 100 unit/mL injection Inject subcutaneously. - atorvastatin (LIPITOR) 40 mg tablet Take 40 mg by mouth once daily. - cephALEXin (KEFLEX) 500 mg capsule TAKE 1 CAPSULE BY MOUTH EVERY 6 HOURS for 7 (SEVEN) days - neomycin/polymyxin b/dexametha(MAXITROL 3.5 MG/G-10,000 UNIT/G-0.1 % EYE OINTMENT) right socket only four times a day for a week then twice daily x 1 week, then stop. - traMADol (ULTRAM) 50 mg tablet Take by mouth. - dutasteride (AVODART) 0.5 mg capsule 1 capsule - pantoprazole DR (PROTONIX) 20 mg tablet Take 1 tablet by mouth. - pravastatin (PRAVACHOL) 40 mg tablet 1 tablet Once a day Orally 90 days - erythromycin (ROMYCIN) 5 mg/gram (0.5 %) ophthalmic ointment Use 1 application in the right eye twice daily. - meloxicam (MOBIC) 15 mg tablet 1 tablet - albuterol HFA (PROVENTIL HFA, VENTOLIN HFA) 90 mcg/actuation inhaler Inhale 2 Puffs as instructed every 4 hours as needed. - ammonium lactate (LAC-HYDRIN) 12 % lotion - aspirin 81 mg chewable tablet Take 81 mg by mouth once daily. - dicyclomine (BENTYL) 20 mg tablet 1 tablet - docusate sodium (COLACE) 100 mg capsule 1 capsule as needed - enalapril (VASOTEC) 20 mg tablet Take 20 mg by mouth. - FLOVENT HFA 110 mcg/actuation inhaler twice daily. - hydroCHLOROthiazide (HYDRODIURIL, ESIDRIX) 25 mg tablet 1 tab - hydrOXYzine pamoate (VISTARIL) 50 mg capsule TAKE 1 CAPSULE EVERY 8 HOURS - insulin regular human (NOVOLIN R,HUMULIN R) 100 unit/mL injection 45 units - losartan (COZAAR) 25 mg tablet Take 25 mg by mouth twice daily. - metoprolol tartrate, short acting, (LOPRESSOR) 50 mg tablet Take 100 mg by mouth. - nitroglycerin sublingual (NITROQUICK) 0.4 mg SL tablet Dissolve 0.4 mg under the tongue. - terazosin (HYTRIN) 5 mg capsule Take 10 mg by mouth daily at bedtime. - Lisinopril, Bulk, 100 % powd Take 10 mg by mouth. - amLODIPine (NORVASC) 10 mg tablet Take 10 mg by mouth. - amitriptyline (ELAVIL) 100 mg tablet Take 150 mg by mouth. Meds Comments as of 12/15/2019: Pt did not come with med list, coming from outside of clinic angie quevedo MA 12/15/19 Problem List As Of Date 12/30/2022 Noted Resolved Spinal stenosis, lumbar region without neurogen*01/16/2005 Type 2 diabetes mellitus without complication (*02/16/2020 group home current use of insulin (HCC) [Z79.4] 02/16/2020 Chronic pain [G89.29] 02/16/2020 Essential hypertension [I10] 04/29/2013 Moderate persistent asthma, uncomplicated [J45.*02/16/2020 History of colonic polyps [Z86.010] 07/30/2017 Constipation [K59.00] 02/16/2020 Cellulitis and abscess of unspecified site [L03*01/24/2012 Benign prostatic hyperplasia with lower urinary* (more content not included)... Normal [facility] CNOVon 11-27-2022 CNOV Office Visit (SPSLUH ) TREY FIGUEROA ([id number]) 1950 M Date Time Provider Department 11/27/22 2:45 PM Leroy [facility] During your visit today, we recorded the following information about you: Pulse Blood pressure Weight Height 65/minute 135/68 143.8 kg 1.981 m Leroy Mancera MD 11/27/2022 3:00 PM Signed SPINE SURGERY NEW PATIENT This is an in-person visit. PCP: Conchis Beckwith DO REFERRING PROVIDER: Alicia Izaguirre MD SUBJECTIVE HISTORY OF PRESENT ILLNESS: Trey Figeuroa is a 72 year old male presenting alone. CHIEF COMPLAINT: Back pain, b/l leg pain PRECIPITATING EVENT: None DURATION OF SYMPTOMS: Greater Than 3 Months Trey is presenting with back and leg pain. He is minimally ambulatory at baseline. His back pain worsened about 3-4 months ago. Similarly, he developed L < R leg pain in L5 distribution. He had an injection (Caudal) that provided mild relief for 14 days. HE also feels his legs are giving out on him more frequently lately. Denies new bowel/bladder issues (baseline incontinence stable for multiple years) PAIN EVALUATION 11/27/2022 1422 Pain Level: 7 Pain Location: Back-Lower Duration Amount of Time: 10 Duration Units: Years Frequency: Continuous Intervention/Comfort measure: Medication Pain Radiation: down the right and left thigh, below the left knee, and to the left foot/feet Aggravating Factors: Walking Alleviating Factors: None Pain Ratio: Pain in the back is greater than in the leg DERMATOMAL DISTRIBUTION: Right: L4 and L5 Left: L4 and L5 AMBULATORY STATUS: Minimal Ambulation/Wheelchair Bound ANTIPLATELET OR ANTICOAGULATION STATUS: Yes [id number] PREVIOUS CONSERVATIVE TREATMENTS: RX NSAIDS for 3 Months or Greater (meloxicam (Mobic)) Analgesics Injections: MAHESH: lumbar- caudal(date(s): 08/28/22) Membrane Stabilizers PREVIOUS SPINAL SURGERY: SURGERY #1: Anterior retropleural T10-T11 diskectomy and fusion with instrumentation ([facility], 01/2005) SURGERY #2: L3-4 decompression ([facility], ~ 7 years ago) ACTIVE PROBLEM LIST Spinal Stenosis, 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 Neurogenic Claudication Type 2 Diabetes Mellitus Without Complication (Hcc) Chcf Current Use of Insulin (Hcc) Chronic Pain Essential Hypertension Moderate Persistent Asthma, Uncomplicated History of Colonic Polyps Constipation Cellulitis and Abscess of Unspecified Site Benign Prostatic Hyperplasia With Lower Urinary Tract Symptoms Asthma Leg Swelling 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 Lumbar Spondylosis Gerd (Gastroesophageal Reflux Disease) Paraplegia (Hcc) Other Hyperlipidemia Neurogenic Claudication Due to Lumbar Spinal Stenosis Radiculitis, Lumbosacral Urinary Incontinence History of Spinal Cord Injury Cauda Equina Syndrome (Hcc) PAST MEDICAL HISTORY Diagnosis Date Asthma BPH (benign prostatic hyperplasia) GERD (gastroesophageal reflux disease) History of colonic polyps Other hyperlipidemia Paraplegia (HCC) Primary hypertension Pseudophakia of left eye 02/04/2022 PAST SURGICAL HISTORY Procedure Laterality Date BACK SURGERY HX HAND SURGERY HX Left PAST SURGICAL HISTORY OF 02/17/2005 T10-T11 DISCECTOMY FUSION INST ([facility]) REMV CATARACT EXTRACAP,INSERT LENS Left 01/14/2022 Aim -1.00 REMV CATARACT EXTRACAP,INSERT LENS Left 02/04/2022 AIM -1.00 FAMILY HISTORY Problem Relation Age of Onset No Ocular Disease Father No Ocular Disease Mother Cataract Maternal Grandfather Macular Degen Maternal Grandfather Social History Tobacco Use Smoking status: Former Types: Cigarettes Quit date: 12/23/1994 Years since quittin.9 Smokeless tobacco: Never Vaping Use Vaping Use: Never used Substance Use Topics Alcohol use: Never Drug use: Never ALLERGIES No Known Allergies MEDICATIONS: Ipratropium [place] (ATROVENT) 21 mcg (0.03 %) nasal spray insulin aspart U-100 (NOVOLOG) 100 unit/mL Inject subcutaneously. amoxicillin-clavulanic acid (AUGMENTIN) 875-125 mg per tablet Take by mouth. insulin glargine (LANTUS) 100 unit/mL injection Inject subcutaneously. atorvastatin (LIPITOR) 40 mg tablet Take 40 mg by mouth once daily. cephALEXin (KEFLEX) 500 mg capsule TAKE 1 CAPSULE BY MOUTH EVERY 6 HOURS for 7 (SEVEN) days neomycin/polymyxin b/dexametha(MAXITROL 3.5 MG/G-10,000 UNIT/G-0.1 % EYE OINTMENT) right socket only four times a day for a week then twice daily x 1 week, then stop. traMADol (ULTRAM) 50 mg tablet Take by mouth. dutasteride (AVODART) 0.5 mg capsule [address] (PROTONIX) 20 mg tablet Take 1 tablet by mouth. pravastatin (PRAVACHOL) 40 mg tablet 1 tablet Once a day Orally 90 days erythromycin (ROMYCIN) 5 mg/gram (0.5 %) ophthalmic ointment Use 1 application in the right eye twice daily. meloxicam (MOBIC) 1 (more content not included)... [facility] COVID-19 SOFIAOrdered By: Raya Webb on 11-11-2022 SARS-CoV+SARS-CoV-2 (COVID-19) Ag IA.rapid Ql (Resp) Negative Negative [facility] Comment on above: This is a duplicate Monserrat SARS Antigen (THONG) result to be used for statistical tracking purpose only. No Panel InformationOrdered By: Joselito Webb on 11-11-2022 SARS Antigen (LFIA) [facility] SARS Antigen (LFIA) [facility] Glucose Glucometer (BldC) [M ass/Vol]Ordered By: Solomon Pedersen/Preceptor on 10-03-2022 Glucose [Mass/Vol] 57 mg/dL [facility] Comment on above: Random Glucose Refer ence Range is dependent on time and content of last meal. Glucose of more than 200 mg/dL in a nonstressed, ambulatory subject supports the diagnosis of Diabetes Mellitus. No Panel InformationOrdered By: Solomon Pedersen/Preceptor on 10-03-2022 Bedside Glucose #2 Comment Will notify /asha [facility] Bedside Glucose Comment Glu2: cleaned meter [facility] Urine culture routineOrdered By: Rommel Mcgowan on 09-27-2022 Bacteria identified Cx Nom (U) 2 Days [facility] Automated erythrocytes count in urine sediment (number/area)Ordered By: Rommel Mcgowan on 09-25-2022 RBC Auto (Urine sed) [#/Area] None seen [HPF] 0-4 [facility] Automated leukocytes count i n urine sediment (number/area)Ordered By: Rommel Mcgowan on 09-25-2022 WBC Auto (Urine sed) [#/Area] None seen [HPF] 0-4 [facility] Basophils Auto (Bld) [#/Vol] Ordered By: Rommel Mcgowan on 09-25-2022 Basophils (Bld) [#/Vol] 0.0 10*3/uL 0.0-0.2 [facility] Basophils/100 WBC Auto (Bld) Ordered By: Rommel Mcgowan on 09-25-2022 Basophils/100 WBC (Bld) 0.7 % . [facility] Bilirubin Test strip Ql (U)O rdered By: Rommel Mcgowan on 09-25-2022 Bilirubin Ql (U) Negative Negative [facility] Color Auto (U)Ordered By: Ollie Mcgowan on 09-25-2022 Color (U) Yellow Yellow [facility] Creatinine and Glomerular fi ltration rate.predicted panel (S/P/Bld)Ordered By: Rommel Mcgowan on 09-25-2022 Creatinine [Mass/Vol] 1.15 mg/dL 0.64-1.27 [facility] Eosinophils Auto (Bld) [#/Vo l]Ordered By: Rommel Mcgowan on 09-25-2022 Eosinophils (Bld) [#/Vol] 0.2 10*3/uL 0.0-0.45 [facility] Eosinophils/100 WBC Auto (Bl d)Ordered By: Rommel Mcgowan on 09-25-2022 Eosinophils/100 WBC (Bld) 2.6 % . [facility] Erythrocyte distribution wid th Auto (RBC) [Ratio]Ordered By: Rommel Mcgowan on 09-25-2022 Erythrocyte distribution width (RBC) [Ratio] 13.8 % 12.0-14.8 [facility] Estimated glomerular filtrat ion rate (GFR) non- AmericanOrdered By: Rommel cMgowan on 09-25-2022 GFR/1.73 sq M.predicted among non-blacks MDRD (S/P/Bld) [Vol rate/Area] > 60 mL/Min [facility] Hematocrit Auto (Bld) [Volum e fraction]Ordered By: Rommel Mcgowan on 09-25-2022 Hematocrit (Bld) [Volume fraction] 40.8 % 38.8-50.0 [facility] Hemoglobin [Mass/volume] in BloodOrdered By: Rommel Mcgowan on 09-25-2022 Hemoglobin (Bld) [Mass/Vol] 13.6 g/dL 13.0-17.0 [facility] Ketones Auto test strip (U) [Mass/Vol]Ordered By: Rommel Mcgowan on 09-25-2022 Ketones (U) [Mass/Vol] Negative Negative Fi [facility] - Hematology and Cell countsOrdered By: Rommel Mcgowan on 09-25-2022 Nucleated RBC/100 WBC (Bld) [Ratio] 0.3 % 0-0.5 [facility] - UrinalysisOrder ed By: Rommel Mcgowan on 09-25-2022 Hyaline casts LM Ql (Urine sed) None seen [LPF] 0-8 [facility] Leukocytes [#/volume] in Blo od by Automated countOrdered By: Rommel Mcgowan on 09-25-2022 WBC (Bld) [#/Vol] 7.1 10*3/uL 4.5-11.0 [facility] Lymphocytes Auto (Bld) [#/Vo l]Ordered By: Rommel Mcgowan on 09-25-2022 Lymphocytes (Bld) [#/Vol] 1.8 10*3/uL 1.00-4.8 [facility] Lymphocytes/100 WBC Auto (Bl d)Ordered By: Rommel Mcgowan on 09-25-2022 Lymphocytes/100 WBC (Bld) 25.4 % . [facility] MCH Auto (RBC) [Entitic mass ]Ordered By: Rommel Mcgowan on 09-25-2022 MCH (RBC) [Entitic mass] 29.3 pg 27.5-35.2 [facility] MCHC Auto (RBC) [Mass/Vol]Or dered By: Rommel Mcgowan on 09-25-2022 MCHC (RBC) [Mass/Vol] 33.4 g/dL 32.5-35.6 [facility] MCV Auto (RBC) [Entitic vol] Ordered By: Rommel Mcgowan on 09-25-2022 MCV (RBC) [Entitic vol] 87.7 fL 83.5-101 [facility] Monocytes Auto (Bld) [#/Vol] Ordered By: Rommel Mcgowan on 09-25-2022 Monocytes (Bld) [#/Vol] 0.6 10*3/uL 0.0-0.8 [facility] Monocytes/100 WBC Auto (Bld) Ordered By: Rommel Mcgowan on 09-25-2022 Monocytes/100 WBC (Bld) 8.8 % . [facility] Neutrophils Auto (Bld) [#/Vo l]Ordered By: Rommel Mcgowan on 09-25-2022 Neutrophils (Bld) [#/Vol] 4.4 10*3/uL 1.8-7.7 [facility] Neutrophils/100 WBC Auto (Bl d)Ordered By: Rommel Mcgowan on 09-25-2022 Neutrophils/100 WBC (Bld) 62.5 % . [facility] Nitrite Test strip Ql (U)Ord ered By: Rommel Mcgowan on 09-25-2022 Nitrite Ql (U) Negative Negative [facility] No Panel InformationOrdered By: Rommel Mcgowan on 09-25-2022 Estimated GFR () > 60 mL/Min [facility] Comment on above: GFR estimated refere nce range: According to KDOQI guidelines, <60 ml/min/1.73m2 is sufficient to diagnose a patient with chronic kidney disease. Pharmacy Creatinine Clearance (Chem 83.11 [facility] Platelet mean volume Auto (B ld) [Entitic vol]Ordered By: Rommel Mcgowan on 09-25-2022 Platelet mean volume (Bld) [Entitic vol] 7.2 fL 6.6-10.1 [facility] Platelets Auto (Bld) [#/Vol] Ordered By: Rommel Mcgowan on 09-25-2022 Platelets (Bld) [#/Vol] 252 10*3/uL 150-450 [facility] Protein Auto test strip (U) [Mass/Vol]Ordered By: Rommel Mcgowan on 09-25-2022 Protein (U) [Mass/Vol] Negative Negative [facility] RBC Auto (Bld) [#/Vol]Ordere d By: Rommel Mcgowan on 09-25-2022 RBC (Bld) [#/Vol] 4.65 10*6/uL 3.90-5.60 [facility] Serum or plasma anion gap de terminationOrdered By: Rommel Mcgowan on 09-25-2022 Anion gap [Moles/Vol] TNP [facility] Comment on above: Test not performed Serum or plasma calcium clarita urement (mass/volume)Ordered By: Rommel Mcgowan on 09-25-2022 Calcium [Mass/Vol] 8.9 mg/dL 8.2-10.2 [facility] Serum or plasma chloride dandre surement (moles/volume)Ordered By: Rommel Mcgowan on 09-25-2022 Chloride [Moles/Vol] 104 mmol/L 95-114 [facility] Serum or plasma glucose clarita urement (mass/volume)Ordered By: Rommel Mcgowan on 09-25-2022 Glucose [Mass/Vol] 107 mg/dL 70-100 [facility] Comment on above: ADA recommended refe rence rangeRandom Glucose Reference Range is dependent on time and content of last meal. Glucose of more than 200 mg/dL in a nonstressed, ambulatory subject supports the diagnosis of Diabetes Mellitus. Serum or plasma potassium me asurement (moles/volume)Ordered By: Rommel Mcgowan on 09-25-2022 Potassium [Moles/Vol] 3.9 mmol/L 3.5-5.1 [facility] Serum or plasma sodium measu rement (moles/volume)Ordered By: Rommel Mcgowan on 09-25-2022 Sodium [Moles/Vol] 138 mmol/L 136-146 [facility] Serum or plasma total carbon dioxide measurement (moles/volume)Ordered By: Rommel Mcgowan on 09-25-2022 CO2 [Moles/Vol] 20.9 mmol/L 22.0-30.0 [facility] Serum or plasma urea nitroge n measurement (mass/volume)Ordered By: Rommel Mcgowan on 09-25-2022 Urea nitrogen [Mass/Vol] 12 mg/dL 08-23 [facility] Specific gravity Auto test s trip (U) [Rel density]Ordered By: Rommel Mcgowan on 09-25-2022 Specific gravity (U) [Rel density] 1.010 1.001-1.03 0 [facility] Squamous epithelial cells de tection in urine sediment by light microscopyOrdered By: Rommel Mcgowan on 09-25-2022 Epithelial cells.squamous LM Ql (Urine sed) None seen [HPF] 0-2 [facility] Urine bacteria detection by automated methodOrdered By: Rommel Mcgowan on 09-25-2022 Bacteria Auto Ql (U) None seen None Seen [facility] Urine clarity by refractomet ry automatedOrdered By: Rommel Mcgowan on 09-25-2022 Clarity Refractometry automated (U) Cloudy Clear [facility] Urine culture routineOrdered By: Rommel Mcgowan on 09-25-2022 Bacteria identified Cx Nom (U) 2 Days [facility] Urine glucose measurement by automated test strip (mass/volume)Ordered By: Rommel Mcgowan on 09-25-2022 Glucose Auto test strip (U) [Mass/Vol] Normal mg/dL Normal [facility] Urine hemoglobin detection b y automated test stripOrdered By: Rommel Mcgowan on 09-25-2022 Hemoglobin Auto test strip Ql (U) Negative Negative [facility] Urine leukocyte esterase det ection by automated test stripOrdered By: Rommel Mcgowan on 09-25-2022 Leukocyte esterase Auto test strip Ql (U) Negative Negative [facility] Urobilinogen Auto test strip (U) [Mass/Vol]Ordered By: Rommel Mcgowan on 09-25-2022 Urobilinogen (U) [Mass/Vol] Normal mg/dL Normal [facility] pH Auto test strip (U)Ordere d By: Rommel Mcgowan on 09-25-2022 pH (U) 6.5 [pH] 5.0-9.0 [facility] MRI LUMBAR SPINE WO IVCONon 09-18-2022 [facility] Albumin [Mass/volume] in Ser um or PlasmaOrdered By: Bailee Feliciano on 09-05-2022 Albumin [Mass/Vol] 3.4 g/dL 3.2-5.5 [facility] Basophils Auto (Bld) [#/Vol] Ordered By: Bailee Feliciano on 09-05-2022 Basophils (Bld) [#/Vol] 0.1 10*3/uL 0.0-0.2 [facility] Basophils/100 WBC Auto (Bld) Ordered By: Bailee Feliciano on 09-05-2022 Basophils/100 WBC (Bld) 0.8 % . [facility] Bilirubin Test strip Ql (U)O rdered By: Bailee Feliciano on 09-05-2022 Bilirubin Ql (U) Negative Negative [facility] Blood hemoglobin measurement (mass/volume)Ordered By: Bailee Feliciano on 09-05-2022 Hemoglobin (Bld) [Mass/Vol] 13.9 g/dL 13.0-17.0 [facility] Blood leukocytes automated c ount (number/volume)Ordered By: Bailee Feliciano on 09-05-2022 WBC (Bld) [#/Vol] 7.9 10*3/uL 4.5-11.0 [facility] Color Auto (U)Ordered By: Milla Feliciano on 09-05-2022 Color (U) Yellow Yellow [facility] Creatinine and Glomerular fi ltration rate.predicted panel (S/P/Bld)Ordered By: Bailee Feliciano on 09-05-2022 Creatinine [Mass/Vol] 1.25 mg/dL 0.64-1.27 [facility] Eosinophils Auto (Bld) [#/Vo l]Ordered By: Bailee Feliciano on 09-05-2022 Eosinophils (Bld) [#/Vol] 0.2 10*3/uL 0.0-0.45 [facility] Eosinophils/100 WBC Auto (Bl d)Ordered By: Bailee Feliciano on 09-05-2022 Eosinophils/100 WBC (Bld) 2.3 % . [facility] Erythrocyte distribution wid th Auto (RBC) [Ratio]Ordered By: Bailee Feliciano on 09-05-2022 Erythrocyte distribution width (RBC) [Ratio] 13.3 % 12.0-14.8 [facility] Estimated glomerular filtrat ion rate (GFR) non- AmericanOrdered By: Bailee Feliciano on 09-05-2022 GFR/1.73 sq M.predicted among non-blacks MDRD (S/P/Bld) [Vol rate/Area] 56 mL/Min [facility] Globulin Calc (S) [Mass/Vol] Ordered By: Bailee Feliciano on 09-05-2022 Globulin (S) [Mass/Vol] 3.7 g/dL [facility] Hematocrit Auto (Bld) [Volum e fraction]Ordered By: Bailee Feliciano on 09-05-2022 Hematocrit (Bld) [Volume fraction] 41.7 % 38.8-50.0 [facility] Ketones Auto test strip (U) [Mass/Vol]Ordered By: Bailee Feliciano on 09-05-2022 Ketones (U) [Mass/Vol] Negative Negative [facility] - Hematology and Cell countsOrdered By: Bailee Feliciano on 09-05-2022 Nucleated RBC/100 WBC (Bld) [Ratio] 0.2 % 0-0.5 [facility] Lymphocytes Auto (Bld) [#/Vo l]Ordered By: Bailee Feliciano on 09-05-2022 Lymphocytes (Bld) [#/Vol] 2.0 10*3/uL 1.00-4.8 [facility] Lymphocytes/100 WBC Auto (Bl d)Ordered By: Bailee Feliciano on 09-05-2022 Lymphocytes/100 WBC (Bld) 25.2 % . [facility] MCH Auto (RBC) [Entitic mass ]Ordered By: Bailee Feliciano on 09-05-2022 MCH (RBC) [Entitic mass] 29.1 pg 27.5-35.2 [facility] MCHC Auto (RBC) [Mass/Vol]Or dered By: Bailee Feliciano on 09-05-2022 MCHC (RBC) [Mass/Vol] 33.4 g/dL 32.5-35.6 [facility] MCV Auto (RBC) [Entitic vol] Ordered By: Bailee Feliciano on 09-05-2022 MCV (RBC) [Entitic vol] 87.0 fL 83.5-101 [facility] Monocytes Auto (Bld) [#/Vol] Ordered By: Bailee Feliciano on 09-05-2022 Monocytes (Bld) [#/Vol] 0.7 10*3/uL 0.0-0.8 [facility] Monocytes/100 WBC Auto (Bld) Ordered By: Bailee Feliciano on 09-05-2022 Monocytes/100 WBC (Bld) 9.2 % . [facility] Neutrophils Auto (Bld) [#/Vo l]Ordered By: Bailee Feliciano on 09-05-2022 Neutrophils (Bld) [#/Vol] 5.0 10*3/uL 1.8-7.7 [facility] Neutrophils/100 WBC Auto (Bl d)Ordered By: Bailee Feliciano on 09-05-2022 Neutrophils/100 WBC (Bld) 62.5 % . [facility] Nitrite Test strip Ql (U)Ord ered By: Bailee Feliciano on 09-05-2022 Nitrite Ql (U) Negative Negative [facility] No Panel InformationOrdered By: Bailee Feliciano on 09-05-2022 Estimated GFR () > 60 mL/Min [facility] Comment on above: GFR estimated refere nce range: According to KDOQI guidelines, <60 ml/min/1.73m2 is sufficient to diagnose a patient with chronic kidney disease. Pharmacy Creatinine Clearance (Chem 76.46 [facility] Platelet mean volume Auto (B ld) [Entitic vol]Ordered By: Bailee Feliciano on 09-05-2022 Platelet mean volume (Bld) [Entitic vol] 7.4 fL 6.6-10.1 [facility] Platelets Auto (Bld) [#/Vol] Ordered By: Bailee Feliciano on 09-05-2022 Platelets (Bld) [#/Vol] 273 10*3/uL 150-450 [facility] Protein Auto test strip (U) [Mass/Vol]Ordered By: Bailee Feliciano on 09-05-2022 Protein (U) [Mass/Vol] Negative Negative [facility] Protein [Mass/volume] in Ser um or PlasmaOrdered By: Bailee Feliciano on 09-05-2022 Protein [Mass/Vol] 7.1 g/dL 6.1-7.9 [facility] RBC Auto (Bld) [#/Vol]Ordere d By: Bailee Feliciano on 09-05-2022 RBC (Bld) [#/Vol] 4.80 10*6/uL 3.90-5.60 [facility] Serum or plasma alanine galvan otransferase measurement without P-5'-P (enzymatic activiOrdered By: Bailee Feliciano on 09-05-2022 ALT No additional P-5'-P [Catalytic activity/Vol] 27 U/L 60 [facility] Serum or plasma albumin/glob ulin mass ratioOrdered By: Bailee Feliciano on 09-05-2022 Albumin/Globulin [Mass ratio] 0.9 {ratio} [facility] Serum or plasma alkaline wandy sphatase measurement (enzymatic activity/volume)Ordered By: Bailee Feliciano on 09-05-2022 ALP [Catalytic activity/Vol] 102 U/L 32-92 [facility] Serum or plasma anion gap de terminationOrdered By: Bailee Feliciano on 09-05-2022 Anion gap [Moles/Vol] 13.6 mmol/L 6.0-15.0 [facility] Serum or plasma aspartate am inotransferase measurement (enzymatic activity/volume)Ordered By: Bailee Feliciano on 09-05-2022 AST [Catalytic activity/Vol] 25 U/L 10-42 [facility] Serum or plasma calcium clarita urement (mass/volume)Ordered By: Bailee Feliciano on 09-05-2022 Calcium [Mass/Vol] 9.4 mg/dL 8.2-10.2 [facility] Serum or plasma chloride dandre surement (moles/volume)Ordered By: Bailee Feliciano on 09-05-2022 Chloride [Moles/Vol] 99 mmol/L 95-114 [facility] Serum or plasma glucose clarita urement (mass/volume)Ordered By: Bailee Feliciano on 09-05-2022 Glucose [Mass/Vol] 164 mg/dL 70-100 [facility] Comment on above: ADA recommended refe rence rangeRandom Glucose Reference Range is dependent on time and content of last meal. Glucose of more than 200 mg/dL in a nonstressed, ambulatory subject supports the diagnosis of Diabetes Mellitus. Serum or plasma potassium me asurement (moles/volume)Ordered By: Bailee Feliciano on 09-05-2022 Potassium [Moles/Vol] 4.4 mmol/L 3.5-5.1 [facility] Serum or plasma sodium measu rement (moles/volume)Ordered By: Bailee Feliciano on 09-05-2022 Sodium [Moles/Vol] 136 mmol/L 136-146 [facility] Serum or plasma total biliru bin measurement (mass/volume)Ordered By: Bailee Feliciano on 09-05-2022 Bilirubin [Mass/Vol] 0.6 mg/dL 0.3-1.2 [facility] Serum or plasma total carbon dioxide measurement (moles/volume)Ordered By: Bailee Feliciano on 09-05-2022 CO2 [Moles/Vol] 27.8 mmol/L 22.0-30.0 [facility] Serum or plasma urea nitroge n measurement (mass/volume)Ordered By: Bailee Feliciano on 09-05-2022 Urea nitrogen [Mass/Vol] 15 mg/dL 9-23 [facility] Specific gravity Auto test s trip (U) [Rel density]Ordered By: Bailee Feliciano on 09-05-2022 Specific gravity (U) [Rel density] 1.010 1.001-1.03 0 [facility] Urine clarity by refractomet ry automatedOrdered By: Bailee Feliciano on 09-05-2022 Clarity Refractometry automated (U) Clear Clear [facility] Urine glucose measurement by automated test strip (mass/volume)Ordered By: Bailee Feliciano on 09-05-2022 Glucose Auto test strip (U) [Mass/Vol] 250 mg/dL Normal [facility] Urine hemoglobin detection b y automated test stripOrdered By: Bailee Feliciano on 09-05-2022 Hemoglobin Auto test strip Ql (U) Negative Negative [facility] Urine leukocyte esterase det ection by automated test stripOrdered By: Bailee Feliciano on 09-05-2022 Leukocyte esterase Auto test strip Ql (U) Negative Negative [facility] Urobilinogen Auto test strip (U) [Mass/Vol]Ordered By: Bailee Feliciano on 09-05-2022 Urobilinogen (U) [Mass/Vol] Normal mg/dL Normal [facility] pH Auto test strip (U)Ordere d By: Bailee Feliciano on 09-05-2022 pH (U) 6.5 [pH] 5.0-9.0 [facility] Bacteria identified Anaer cx Nom (Unsp spec)Ordered By: Braulio Hauser on 09-01-2022 Anaerobic microbial culture No Anaerobes Isolated 3 Days [facility] Bacteria identified Aer cx N om (Unsp spec)Ordered By: Braulio Hauser on 08-31-2022 Aerobic Culture Methicillin Resis St aph Aureus [facility] ABO and Rh group post transf usion reaction Nom (Bld)Ordered By: Braulio Hauser on 08-30-2022 Microscopic observation Gram stain Nom (Unsp spec) [facility] Anaerobic cultureOrdered By: Braulio Hauser on 08-29-2022 Bacteria identified Anaer cx Nom (Unsp spec) No Anaerobes Isolated 3 Days [facility] Bacteria identified Aer cx N om (Unsp spec)Ordered By: Braulio Hauser on 08-29-2022 Aerobic Culture Methicillin Resis St aph Aureus [facility] Gram stain for investigation of transfusion reactionOrdered By: Braulio Hauser on 08-29-2022 Microscopic observation Gram stain Nom (Unsp spec) [facility] HISTORY PHYSICALon HISTORY PHYSICAL HNO ID: [id number] Author: Myriam Caputo APRN.OCEANOGRAPHIC METEOROLOGIST Service: Obstetrics Author Type: Nurse Practitioner Type: HANDP Filed: 08/28/2022 11:39 AM Note Text: PROCEDURAL SEDATION HISTORY AND PHYSICAL EXAM SERVICE DATE: 08/28/2022 SERVICE TIME: 11:30 AM Subjective HPI: This is a 72 year old male who presents with right sided pain, come fromt he middle part of the back PAST ANESTHESIA HISTORY: No history of adverse event PAST MEDICAL HISTORY Diagnosis Date Asthma BPH (benign prostatic hyperplasia) GERD (gastroesophageal reflux disease) History of colonic polyps Other hyperlipidemia Paraplegia (HCC) Primary hypertension Pseudophakia of left eye 02/04/2022 PAST SURGICAL HISTORY Procedure Laterality Date BACK SURGERY HX HAND SURGERY HX Left PAST SURGICAL HISTORY OF 02/17/2005 T10-T11 DISCECTOMY FUSION INST ([facility]) REMV CATARACT EXTRACAP,INSERT LENS Left 01/14/2022 Aim -1.00 REMV CATARACT EXTRACAP,INSERT LENS Left 02/04/2022 AIM -1.00 Prior to Admission medications as of 07/26/22 1058 Medication Sig Last Dose Taking Ipratropium [place] (ATROVENT) 21 mcg (0.03 %) nasal spray insulin aspart U-100 (NOVOLOG) 100 unit/mL Inject subcutaneously. amoxicillin-clavulanic acid (AUGMENTIN) 875-125 mg per tablet Take by mouth. insulin glargine (LANTUS) 100 unit/mL injection Inject subcutaneously. atorvastatin (LIPITOR) 40 mg tablet Take 40 mg by mouth once daily. cephALEXin (KEFLEX) 500 mg capsule TAKE 1 CAPSULE BY MOUTH EVERY 6 HOURS for 7 (SEVEN) days neomycin/polymyxin b/dexametha(MAXITROL 3.5 MG/G-10,000 UNIT/G-0.1 % EYE OINTMENT) right socket only four times a day for a week then twice daily x 1 week, then stop. traMADol (ULTRAM) 50 mg tablet Take by mouth. dutasteride (AVODART) 0.5 mg capsule [address] (PROTONIX) 20 mg tablet Take 1 tablet by mouth. pravastatin (PRAVACHOL) 40 mg tablet 1 tablet Once a day Orally 90 days erythromycin (ROMYCIN) 5 mg/gram (0.5 %) ophthalmic ointment Use 1 application in the right eye twice daily. meloxicam (MOBIC) 15 mg tablet 1 tablet albuterol HFA (PROVENTIL HFA, VENTOLIN HFA) 90 mcg/actuation inhaler Inhale 2 Puffs as instructed every 4 hours as needed. ammonium lactate (LAC-HYDRIN) 12 % lotion aspirin 81 mg chewable tablet Take 81 mg by mouth once daily. dicyclomine (BENTYL) 20 mg tablet 1 tablet docusate sodium (COLACE) 100 mg capsule 1 capsule as needed enalapril (VASOTEC) 20 mg tablet Take 20 mg by mouth. FLOVENT HFA 110 mcg/actuation inhaler twice daily. hydroCHLOROthiazide (HYDRODIURIL, ESIDRIX) 25 mg tablet 1 tab hydrOXYzine pamoate (VISTARIL) 50 mg capsule TAKE 1 CAPSULE EVERY 8 HOURS insulin regular human (NOVOLIN R,HUMULIN R) 100 unit/mL injection 45 units losartan (COZAAR) 25 mg tablet Take 25 mg by mouth twice daily. metoprolol tartrate, short acting, (LOPRESSOR) 50 mg tablet Take 100 mg by mouth. nitroglycerin sublingual (NITROQUICK) 0.4 mg SL tablet Dissolve 0.4 mg under the tongue. terazosin (HYTRIN) 5 mg capsule Take 10 mg by mouth daily at bedtime. Lisinopril, Bulk, 100 % powd Take 10 mg by mouth. amLODIPine (NORVASC) 10 mg tablet Take 10 mg by mouth. amitriptyline (ELAVIL) 100 mg tablet Take 150 mg by mouth. ALLERGIES No Known Allergies Objective PHYSICAL EXAM: The remainder of the physical exam is noncontributory. AIRWAY: LUNGS: CARDIAC: , Irregular regular heart rate Assessment/Plan ASA Class: Active Problems: * No active hospital problems. * Resolved Problems: * No resolved hospital problems. * Medication and Non-Pharmacologic VTE Prophylaxis/Anticoagulants VTE Prophylaxis: NA Provisional Diagnosis/Treatment Plan: SACRAL(CAUDAL) EPIDURAL BLOCK W/INJECTION NON NEUROLYTIC W/IMAGE GUIDANCE SIGNATURE: Myriam Caputo APRN.CNP PATIENT NAME: Trye Figueroa DATE: August 28, 2022 TIME: 11:30 AM [facility] OPERATIVE NOon 08-28-2022 OPERATIVE NO HNO ID: [id number] Author: Chuyita Hancock MD Service: Pain Management Author Type: Physician Type: Operative Report Filed: 08/28/2022 12:47 PM Note Text: OPERATIVE/PROCEDURE REPORT LOG ID: [id number] SURGERY/PROCEDURE DATE: 08/28/2022 INCISION/PROCEDURE START TIME: 12:39 PM INCISION CLOSE/PROCEDURE END TIME: 12:43 PM PRE-OP/PRE-PROCEDURE DIAGNOSIS: Neurogenic claudication due to lumbar spinal stenosis [M48.062] POST-OP/POST-PROCEDURE DIAGNOSIS: Same as Preop SURGERY/PROCEDURE(S): Procedure(s) (LRB): SACRAL(CAUDAL) EPIDURAL BLOCK W/INJECTION NON NEUROLYTIC W/IMAGE GUIDANCE (N/A) SURGEON(S)/PROCEDURALIST(S) AND CHAIN MAKER(S): Surgeon(s) and Role: * Chuyita Hancock MD - Primary No Additional House Worker General(s): None, I performed the entire procedure. ANESTHESIA: : Local SEDATION: Moderate Sedation; midazolam 1 mg AND fentanyl 0 mcg, ASA II, normal airway, chest excursion and heart rate. Airway reassessed immediately prior to medication administration, and IV sedation was administered incrementally to allow the patient to remain comfortable and conversant throughout the procedure. SEDATION START TIME: 12:37 PM SEDATION END TIME: 12:44 PM SUBJECTIVE: Trey Figueroa is a 72 year old male [facility] with complaints of lower back pain and lower extremity pain. IINDICATIONS: suspected radicular pain at the L5-S1, neurogenic claudication, radicular pain resistant to other therapeutic means. SURGERY/PROCEDURE DETAILS: IV was started prior to the procedure. The patient was transported to the fluoroscopy suite and was placed in a prone position on the fluoroscopy table with a pillow under the abdomen to reduce the lumbar lordosis.The patient was monitored using pulse oximetry, intermittent blood pressure reading, and 3-lead EKG. Using sterile technique, the skin over the lumbosacral spine was prepped with povidone-iodine and draped. The sacrum, sacral cornua and coccyx were identified by palpation and under fluoroscopic imaging in an AP and lateral view. The skin and the subcutaneous tissues at the entry site were anesthetized with 3 ml of lidocaine 1.0%. A 22 gauge 3 inch Spinal needlewas advanced into the sacral hiatus under intermittent AP and lateral fluoroscopic guidance until the needle passed through the sacrococcygeal ligament and then advanced another 1cm to the caudal epidural space. The final needle position was confirmed using an AP and lateral fluoroscopic imaging. After negative aspiration of blood or CSF, 2 ml of iohexal were injected with live fluoroscopy. Midline epidural spread of contrast was confirmed. Seven ml of 0.5% lidocaine with 40 mg triamcinolone was injected and the needle was removed. The injection site was cleaned and dried and a sterile dressing was applied. The patient was taken to the post-block recovery area for further observation. FINDINGS: Technically adequate procedure COMPLICATIONS: None ESTIMATED BLOOD LOSS: 0 ml SPECIMENS: None IMPLANTABLE DEVICES: None DRAINS: None ASSESSMENT: Neurogenic claudication due to lumbar spinal stenosis [M48.062] Patient evaluated 20 min post procedure. PLAN: The effect of the procedure will be evaluated at the next visit. Follow-up Appointment: 3-4 weeks for an office visit SIGNATURE: Chuyita Hancock MD PATIENT NAME: Trey Figueroa DATE: August 28, 2022 TIME: 12:46 PM Normal [facility] Bacterial blood cultureOrder ed By: Vanita Harding on 08-16-2022 Bacteria identified Cx Nom (Bld) NO GROWTH 5 DAYS [facility] Albumin [Mass/volume] in Ser um or PlasmaOrdered By: Vanita Harding on 08-11-2022 Albumin [Mass/Vol] 3.0 g/dL 3.2-5.5 [facility] Basophils Auto (Bld) [#/Vol] Ordered By: Vanita Harding on 08-11-2022 Basophils (Bld) [#/Vol] 0.0 10*3/uL 0.0-0.2 [facility] Basophils/100 WBC Auto (Bld) Ordered By: Vanita Harding on 08-11-2022 Basophils/100 WBC (Bld) 0.5 % . [facility] Blood hemoglobin measurement (mass/volume)Ordered By: Vanita Harding on 08-11-2022 Hemoglobin (Bld) [Mass/Vol] 13.0 g/dL 13.0-17.0 [facility] Blood leukocytes automated c ount (number/volume)Ordered By: Vanita Harding on 08-11-2022 WBC (Bld) [#/Vol] 8.5 10*3/uL 4.5-11.0 [facility] C reactive protein [Mass/vol ume] in Serum or PlasmaOrdered By: Vanita Harding on 08-11-2022 CRP [Mass/Vol] 2.2 mg/dL 0.0-1.0 [facility] Creatinine and Glomerular fi ltration rate.predicted panel (S/P/Bld)Ordered By: Vanita Horneore on 08-11-2022 Creatinine [Mass/Vol] 1.31 mg/dL 0.64-1.27 [facility] Eosinophils Auto (Bld) [#/Vo l]Ordered By: Vanita Bullimore on 08-11-2022 Eosinophils (Bld) [#/Vol] 0.4 10*3/uL 0.0-0.45 [facility] Eosinophils/100 WBC Auto (Bl d)Ordered By: Vanita Bullimore on 08-11-2022 Eosinophils/100 WBC (Bld) 4.7 % . [facility] Erythrocyte distribution wid th Auto (RBC) [Ratio]Ordered By: [facility] 08-11-[facility]22 Erythrocyte distribution width (RBC) [Ratio] 13.0 % 12.0-14.8 [facility] Erythrocyte sedimentation ra te by Photometric methodOrdered By: [facility] 08-11-[facility]22 ESR Photometric method (d) [Velocity] 41 mm/hr 0-19 [facility] Estimated glomerular filtrat ion rate (GFR) non- AmericanOrdered By: Vanitasamy Horneore on 08-11-2022 GFR/1.73 sq M.predicted among non-blacks MDRD (S/P/Bld) [Vol rate/Area] 53 mL/Min [facility] Globulin Calc (S) [Mass/Vol] Ordered By: [facility] on 08-11-2022 Globulin (S) [Mass/Vol] 3.7 g/dL [facility] Hematocrit Auto (Bld) [Volum e fraction]Ordered By: [facility] on 08-11-2022 Hematocrit (Bld) [Volume fraction] 39.1 % 38.8-50.0 [facility] Laboratory - Hematology and Cell countsOrdered By: Vanita Ozzieore on 08-11-2022 Nucleated RBC/100 WBC (Bld) [Ratio] 0.1 % 0-0.5 [facility] Lymphocytes Auto (Bld) [#/Vo l]Ordered By: Vanita Bullimore on 08-11-2022 Lymphocytes (Bld) [#/Vol] 1.5 10*3/uL 1.00-4.8 [facility] Lymphocytes/100 WBC Auto (Bl d)Ordered By: Vanita Bullimore on 08-11-2022 Lymphocytes/100 WBC (Bld) 17.9 % . [facility] MCH Auto (RBC) [Entitic mass ]Ordered By: Vanita Bullimore on 08-11-2022 MCH (RBC) [Entitic mass] 29.2 pg 27.5-35.2 [facility] MCHC Auto (RBC) [Mass/Vol]Or dered By: Vanita Bullimore on 08-11-2022 MCHC (RBC) [Mass/Vol] 33.3 g/dL 32.5-35.6 [facility] MCV Auto (RBC) [Entitic vol] Ordered By: Vanita Bullimore on 08-11-2022 MCV (RBC) [Entitic vol] 87.8 fL 83.5-101 [facility] Monocytes Auto (Bld) [#/Vol] Ordered By: Vanita Bullimore on 08-11-2022 Monocytes (Bld) [#/Vol] 1.0 10*3/uL 0.0-0.8 [facility] Monocytes/100 WBC Auto (Bld) Ordered By: Vanita Bullimore on 08-11-2022 Monocytes/100 WBC (Bld) 12.3 % . [facility] Neutrophils Auto (Bld) [#/Vo l]Ordered By: Vanita Bullimore on 08-11-2022 Neutrophils (Bld) [#/Vol] 5.5 10*3/uL 1.8-7.7 [facility] Neutrophils/100 WBC Auto (Bl d)Ordered By: Vanita Bullimore on 08-11-2022 Neutrophils/100 WBC (Bld) 64.6 % . [facility] No Panel InformationOrdered By: Vanita Harding on 08-11-2022 Estimated GFR () > 60 mL/Min [facility] Comment on above: GFR estimated refere nce range: According to KDOQI guidelines, <60 ml/min/1.73m2 is sufficient to diagnose a patient with chronic kidney disease. Pharmacy Creatinine Clearance (Chem 72.32 [facility] Platelet mean volume Auto (B ld) [Entitic vol]Ordered By: Vanita Harding on 08-11-2022 Platelet mean volume (Bld) [Entitic vol] 7.0 fL 6.6-10.1 [facility] Platelets Auto (Bld) [#/Vol] Ordered By: Vanita Horneore on 08-11-2022 Platelets (Bld) [#/Vol] 293 10*3/uL 150-450 [facility] Protein [Mass/volume] in Ser um or PlasmaOrdered By: Vanita Horneore on 08-11-2022 Protein [Mass/Vol] 6.7 g/dL 6.1-7.9 [facility] RBC Auto (Bld) [#/Vol]Ordere d By: Vanita Horneore on 08-11-2022 RBC (Bld) [#/Vol] 4.46 10*6/uL 3.90-5.60 [facility] Serum or plasma alanine galvan otransferase measurement without P-5'-P (enzymatic activiOrdered By: Vanita Harding on 08-11-2022 ALT No additional P-5'-P [Catalytic activity/Vol] 29 U/L 10-60 [facility] Serum or plasma albumin/glob ulin mass ratioOrdered By: Vanita Harding on 08-11-2022 Albumin/Globulin [Mass ratio] 0.8 {ratio} [facility] Serum or plasma alkaline wandy sphatase measurement (enzymatic activity/volume)Ordered By: Vanita Harding on 08-11-2022 ALP [Catalytic activity/Vol] 98 U/L 32-92 [facility] Serum or plasma anion gap de terminationOrdered By: Vanita Harding on 08-11-2022 Anion gap [Moles/Vol] 13.3 mmol/L 6.0-15.0 [facility] Serum or plasma aspartate am inotransferase measurement (enzymatic activity/volume)Ordered By: Vanita Harding on 08-11-2022 AST [Catalytic activity/Vol] 28 U/L 10-42 [facility] Serum or plasma calcium clarita urement (mass/volume)Ordered By: Vanita Harding on 08-11-2022 Calcium [Mass/Vol] 9.2 mg/dL 8.2-10.2 [facility] Serum or plasma chloride dandre surement (moles/volume)Ordered By: Vanita Harding on 08-11-2022 Chloride [Moles/Vol] 98 mmol/L 95-114 [facility] Serum or plasma glucose clarita urement (mass/volume)Ordered By: Vanita Harding on 08-11-2022 Glucose [Mass/Vol] 173 mg/dL 70-100 [facility] Comment on above: ADA recommended refe rence range Random Glucose Reference Range is dependent on time and content of last meal. Glucose of more than 200 mg/dL in a nonstressed, ambulatory subject supports the diagnosis of Diabetes Mellitus. ADA recommended refe rence rangeRandom Glucose Reference Range is dependent on time and content of last meal. Glucose of more than 200 mg/dL in a nonstressed, ambulatory subject supports the diagnosis of Diabetes Mellitus. Serum or plasma potassium me asurement (moles/volume)Ordered By: Vanita Harding on 08-11-2022 Potassium [Moles/Vol] 4.6 mmol/L 3.5-5.1 [facility] Serum or plasma sodium measu rement (moles/volume)Ordered By: Vanita Harding on 08-11-2022 Sodium [Moles/Vol] 135 mmol/L 136-146 [facility] Serum or plasma total biliru bin measurement (mass/volume)Ordered By: Vanita Harding on 08-11-2022 Bilirubin [Mass/Vol] 0.4 mg/dL 0.3-1.2 [facility] Serum or plasma total carbon dioxide measurement (moles/volume)Ordered By: Vanita Harding on 08-11-2022 CO2 [Moles/Vol] 28.3 mmol/L 22.0-30.0 [facility] Serum or plasma urea nitroge n measurement (mass/volume)Ordered By: Vanita Harding on 08-11-2022 Urea nitrogen [Mass/Vol] 16 mg/dL 9-23 [facility] Urine lactic acid measuremen tOrdered By: Vanita Harding on 08-11-2022 Lactate (U) [Moles/Vol] 1.6 mmol/L 0.5-2.2 [facility] Bacterial blood cultureOrder ed By: Low Castellano on 06-24-2022 Bacteria identified Cx Nom (Bld) NO GROWTH 5 DAYS [facility] Bacteria identified Aer cx N om (Unsp spec)Ordered By: Low Castellano on 06-22-2022 Superficial Wound Culture Methicillin Resis Staph Aureus [facility] Superficial Wound Culture Pseudomonas aeruginosa [facility] Superficial Wound Culture Escherichia coli [facility] Basophils Auto (Bld) [#/Vol] Ordered By: Low Castellano on 06-19-2022 Basophils (Bld) [#/Vol] 0.0 10*3/uL 0.0-0.2 [facility] Basophils/100 WBC Auto (Bld) Ordered By: Low Castellano on 06-19-2022 Basophils/100 WBC (Bld) 0.3 % . [facility] Blood hemoglobin measurement (mass/volume)Ordered By: Low Castellano on 06-19-2022 Hemoglobin (Bld) [Mass/Vol] 13.7 g/dL 13.0-17.0 [facility] Blood leukocytes automated c ount (number/volume)Ordered By: Low Castellano on 06-19-2022 WBC (Bld) [#/Vol] 9.7 10*3/uL 4.5-11.0 [facility] Creatinine and Glomerular fi ltration rate.predicted panel (S/P/Bld)Ordered By: Low Castellano on 06-19-2022 Creatinine [Mass/Vol] 1.22 mg/dL 0.64-1.27 [facility] Eosinophils Auto (Bld) [#/Vo l]Ordered By: Low Castellano on 06-19-2022 Eosinophils (Bld) [#/Vol] 0.6 10*3/uL 0.0-0.45 [facility] Eosinophils/100 WBC Auto (Bl d)Ordered By: Low Castellano on 06-19-2022 Eosinophils/100 WBC (Bld) 6.2 % . [facility] Erythrocyte distribution wid th Auto (RBC) [Ratio]Ordered By: Low Castellano on 06-19-2022 Erythrocyte distribution width (RBC) [Ratio] 13.9 % 12.0-14.8 [facility] Estimated glomerular filtrat ion rate (GFR) non- AmericanOrdered By: Low Castellano on 06-19-2022 GFR/1.73 sq M.predicted among non-blacks MDRD (S/P/Bld) [Vol rate/Area] 58 mL/Min [facility] Hematocrit Auto (Bld) [Volum e fraction]Ordered By: Low Castellano on 06-19-2022 Hematocrit (Bld) [Volume fraction] 41.0 % 38.8-50.0 [facility] Laboratory - Hematology and Cell countsOrdered By: Low Castellano on 06-19-2022 Nucleated RBC/100 WBC (Bld) [Ratio] 0.1 % 0-0.5 [facility] Lymphocytes Auto (Bld) [#/Vo l]Ordered By: Low Castellano on 06-19-2022 Lymphocytes (Bld) [#/Vol] 1.9 10*3/uL 1.00-4.8 [facility] Lymphocytes/100 WBC Auto (Bl d)Ordered By: Low Castellano on 06-19-2022 Lymphocytes/100 WBC (Bld) 19.6 % . [facility] MCH Auto (RBC) [Entitic mass ]Ordered By: Low Castellano on 06-19-2022 MCH (RBC) [Entitic mass] 29.8 pg 27.5-35.2 [facility] MCHC Auto (RBC) [Mass/Vol]Or dered By: Low Castellano on 06-19-2022 MCHC (RBC) [Mass/Vol] 33.4 g/dL 32.5-35.6 [facility] MCV Auto (RBC) [Entitic vol] Ordered By: Low Castellano on 06-19-2022 MCV (RBC) [Entitic vol] 89.4 fL 83.5-101 [facility] Monocytes Auto (Bld) [#/Vol] Ordered By: Low Castellano on 06-19-2022 Monocytes (Bld) [#/Vol] 0.7 10*3/uL 0.0-0.8 [facility] Monocytes/100 WBC Auto (Bld) Ordered By: Low Castellano on 06-19-2022 Monocytes/100 WBC (Bld) 7.4 % . [facility] Neutrophils Auto (Bld) [#/Vo l]Ordered By: Low Castellano on 06-19-2022 Neutrophils (Bld) [#/Vol] 6.5 10*3/uL 1.8-7.7 [facility] Neutrophils/100 WBC Auto (Bl d)Ordered By: Low Castellano on 06-19-2022 Neutrophils/100 WBC (Bld) 66.5 % . [facility] No Panel InformationOrdered By: Low Castellano on 06-19-2022 Estimated GFR () > 60 mL/Min [facility] Comment on above: GFR estimated refere nce range: According to KDOQI guidelines, <60 ml/min/1.73m2 is sufficient to diagnose a patient with chronic kidney disease. Pharmacy Creatinine Clearance (Chem 75.84 [facility] Platelet mean volume Auto (B ld) [Entitic vol]Ordered By: Low Castellano on 06-19-2022 Platelet mean volume (Bld) [Entitic vol] 6.8 fL 6.6-10.1 [facility] Platelets Auto (Bld) [#/Vol] Ordered By: Low Castellano on 06-19-2022 Platelets (Bld) [#/Vol] 311 10*3/uL 150-450 [facility] RBC Auto (Bld) [#/Vol]Ordere d By: Low Castellano on 06-19-2022 RBC (Bld) [#/Vol] 4.59 10*6/uL 3.90-5.60 [facility] Serum or plasma calcium clarita urement (mass/volume)Ordered By: Low Castellano on 06-19-2022 Calcium [Mass/Vol] 9.0 mg/dL 8.2-10.2 [facility] Serum or plasma chloride dandre surement (moles/volume)Ordered By: Low Castellano on 06-19-2022 Chloride [Moles/Vol] 102 mmol/L 95-114 [facility] Serum or plasma glucose clarita urement (mass/volume)Ordered By: Low Castellano on 06-19-2022 Glucose [Mass/Vol] 77 mg/dL 70-100 [facility] Comment on above: ADA recommended refe rence range Random Glucose Reference Range is dependent on time and content of last meal. Glucose of more than 200 mg/dL in a nonstressed, ambulatory subject supports the diagnosis of Diabetes Mellitus. ADA recommended refe rence rangeRandom Glucose Reference Range is dependent on time and content of last meal. Glucose of more than 200 mg/dL in a nonstressed, ambulatory subject supports the diagnosis of Diabetes Mellitus. Serum or plasma potassium me asurement (moles/volume)Ordered By: Low Castellano on 06-19-2022 Potassium [Moles/Vol] 4.0 mmol/L 3.5-5.1 [facility] Serum or plasma sodium measu rement (moles/volume)Ordered By: Low Castellano on 06-19-2022 Sodium [Moles/Vol] 139 mmol/L 136-146 [facility] Serum or plasma total carbon dioxide measurement (moles/volume)Ordered By: Low Castellano on 06-19-2022 CO2 [Moles/Vol] 28.2 mmol/L 22.0-30.0 [facility] Serum or plasma urea nitroge n measurement (mass/volume)Ordered By: Low Castellano on 06-19-2022 Urea nitrogen [Mass/Vol] 13 mg/dL 9-23 [facility] Urine lactic acid measuremen tOrdered By: Low Castellano on 06-19-2022 Lactate (U) [Moles/Vol] 0.9 mmol/L 0.5-2.2 [facility] Basophils Auto (Bld) [#/Vol] Ordered By: Ken Brush on 06-14-2022 Basophils (Bld) [#/Vol] 0.0 10*3/uL 0.0-0.2 [facility] Basophils/100 WBC Auto (Bld) Ordered By: Ken Brush on 06-14-2022 Basophils/100 WBC (Bld) 0.3 % . [facility] Blood hemoglobin measurement (mass/volume)Ordered By: Ken Brush on 06-14-2022 Hemoglobin (Bld) [Mass/Vol] 12.8 g/dL 13.0-17.0 [facility] Blood leukocytes automated c ount (number/volume)Ordered By: Ken Brush on 06-14-2022 WBC (Bld) [#/Vol] 14.0 10*3/uL 4.5-11.0 [facility] Eosinophils Auto (Bld) [#/Vo l]Ordered By: Ken Brush on 06-14-2022 Eosinophils (Bld) [#/Vol] 0.0 10*3/uL 0.0-0.45 [facility] Eosinophils/100 WBC Auto (Bl d)Ordered By: Ken Brush on 06-14-2022 Eosinophils/100 WBC (Bld) 0.0 % . [facility] Erythrocyte distribution wid th Auto (RBC) [Ratio]Ordered By: Ken Brush on 06-14-2022 Erythrocyte distribution width (RBC) [Ratio] 13.5 % 12.0-14.8 [facility] Hematocrit Auto (Bld) [Volum e fraction]Ordered By: Ken Brush on 06-14-2022 Hematocrit (Bld) [Volume fraction] 37.8 % 38.8-50.0 [facility] - Hematology and Cell countsOrdered By: Ken Brush on 06-14-2022 Nucleated RBC/100 WBC (Bld) [Ratio] 0.0 % 0-0.5 [facility] Lymphocytes Auto (Bld) [#/Vo l]Ordered By: Ken Brush on 06-14-2022 Lymphocytes (Bld) [#/Vol] 1.1 10*3/uL 1.00-4.8 [facility] Lymphocytes/100 WBC Auto (Bl d)Ordered By: Ken Brush on 06-14-2022 Lymphocytes/100 WBC (Bld) 7.5 % . [facility] MCH Auto (RBC) [Entitic mass ]Ordered By: Ken Brush on 06-14-2022 MCH (RBC) [Entitic mass] 30.1 pg 27.5-35.2 [facility] MCHC Auto (RBC) [Mass/Vol]Or dered By: Ken Brush on 06-14-2022 MCHC (RBC) [Mass/Vol] 33.8 g/dL 32.5-35.6 [facility] MCV Auto (RBC) [Entitic vol] Ordered By: Ken Brush on 06-14-2022 MCV (RBC) [Entitic vol] 88.9 fL 83.5-101 [facility] Monocytes Auto (Bld) [#/Vol] Ordered By: Ken Bruhs on 06-14-2022 Monocytes (Bld) [#/Vol] 0.9 10*3/uL 0.0-0.8 [facility] Monocytes/100 WBC Auto (Bld) Ordered By: Ken Brush on 06-14-2022 Monocytes/100 WBC (Bld) 6.6 % . [facility] Neutrophils Auto (Bld) [#/Vo l]Ordered By: Ken Brush on 06-14-2022 Neutrophils (Bld) [#/Vol] 12.0 10*3/uL 1.8-7.7 [facility] Neutrophils/100 WBC Auto (Bl d)Ordered By: Ken Brush on 06-14-2022 Neutrophils/100 WBC (Bld) 85.6 % . [facility] Platelet mean volume Auto (B ld) [Entitic vol]Ordered By: Ken Brush on 06-14-2022 Platelet mean volume (Bld) [Entitic vol] 8.0 fL 6.6-10.1 [facility] Platelets Auto (Bld) [#/Vol] Ordered By: Ken Brush on 06-14-2022 Platelets (Bld) [#/Vol] 314 10*3/uL 150-450 [facility] RBC Auto (Bld) [#/Vol]Ordere d By: Ken Brush on 06-14-2022 RBC (Bld) [#/Vol] 4.25 10*6/uL 3.90-5.60 [facility] Glucose Glucometer (BldC) [M ass/Vol]Ordered By: Luiz Pandya on 06-09-2022 Glucose [Mass/Vol] 143 mg/dL [facility] Comment on above: Random Glucose Refer ence Range is dependent on time and content of last meal. Glucose of more than 200 mg/dL in a nonstressed, ambulatory subject supports the diagnosis of Diabetes Mellitus. No Panel InformationOrdered By: Luiz Pandya on 06-09-2022 Bedside Glucose Comment See comment [facility] Comment on above: Glu2: WILL NOTIFY DR /RN Laboratory - Chemistry and C hemistry - challengeOrdered By: Conchis Beckwith on 06-04-2022 Cobalamin (Vitamin B12) [Mass/Vol] 422 pg/mL 180-914 [facility] TSH DL <= 0.005 mIU/L QnOrde red By: Ken Brush on 06-04-2022 TSH Qn 1.61 m[IU]/L 0.45-5.33 [facility] Bacterial blood cultureOrder ed By: Milady Ybarra on 05-24-2022 Bacteria identified Cx Nom (Bld) NO GROWTH 5 DAYS [facility] Blood hemoglobin measurement (mass/volume)Ordered By: Hiren Malave on 05-20-2022 Hemoglobin (Bld) [Mass/Vol] 13.1 g/dL 13.0-17.0 [facility] Erythrocyte distribution wid th Auto (RBC) [Ratio]Ordered By: Hiren Malave on 05-20-2022 Erythrocyte distribution width (RBC) [Ratio] 13.8 % 12.0-14.8 [facility] Glucose Glucometer (BldC) [M ass/Vol]Ordered By: Dimitry Tyler on 05-20-2022 Glucose [Mass/Vol] 183 mg/dL [facility] Comment on above: Random Glucose Refer ence Range is dependent on time and content of last meal. Glucose of more than 200 mg/dL in a nonstressed, ambulatory subject supports the diagnosis of Diabetes Mellitus. Hematocrit Auto (Bld) [Volum e fraction]Ordered By: Hiren Malave on 05-20-2022 Hematocrit (Bld) [Volume fraction] 39.0 % 38.8-50.0 [facility] MCH Auto (RBC) [Entitic mass ]Ordered By: Hiren Malave on 05-20-2022 MCH (RBC) [Entitic mass] 30.1 pg 27.5-35.2 [facility] MCHC Auto (RBC) [Mass/Vol]Or dered By: Hiren Eliesermal on 05-20-2022 MCHC (RBC) [Mass/Vol] 33.7 g/dL 32.5-35.6 [facility] MCV Auto (RBC) [Entitic vol] Ordered By: Hiren Eliesermal on 05-20-2022 MCV (RBC) [Entitic vol] 89.4 fL 83.5-101 [facility] Platelet mean volume Auto (B ld) [Entitic vol]Ordered By: Hiren Eliesermal on 05-20-2022 Platelet mean volume (Bld) [Entitic vol] 7.0 fL 6.6-10.1 [facility] Platelets Auto (Bld) [#/Vol] Ordered By: Hiren Eliesermal on 05-20-2022 Platelets (Bld) [#/Vol] 289 10*3/uL 150-450 [facility] RBC Auto (Bld) [#/Vol]Ordere d By: Hiren Eliesermal on 05-20-2022 RBC (Bld) [#/Vol] 4.36 10*6/uL 3.90-5.60 [facility] WBC Auto (Bld) [#/Vol]Ordere d By: Hiren Eliesermal on 05-20-2022 WBC (Bld) [#/Vol] 7.5 10*3/uL 4.1-10.5 [facility] Basophils Auto (Bld) [#/Vol] Ordered By: Milady Ybarra on 05-19-2022 Basophils (Bld) [#/Vol] 0.0 10*3/uL 0.0-0.2 [facility] Basophils/100 WBC Auto (Bld) Ordered By: Milady Ybarra on 05-19-2022 Basophils/100 WBC (Bld) 0.4 % . [facility] [facility] COVID-19 Positive/NegativeOr dered By: Rommel Mcgowan on 05-19-2022 SARS-CoV-2 (COVID-19) N gene HAY+probe Ql (Resp) Negative Negative [facility] Comment on above: Testing for SARS-CoV -2 by RT-PCR This test was developed and its performance characteristics determined by [employer] and validated at the [facility]. This test has not been FDA cleared or approved. This test has been authorized by FDA under an Emergency Use Authorization (EUA). This test has been validated in accordance with the FDA's Guidance Document (Policy for Diagnostics Testing in Laboratories Certified to Perform High Complexity Testing under CLIA prior to Emergency Use Authorization for Coronavirus Disease-2019 during the Public Health Emergency) issued on March 02, 2020. This test is only authorized for the duration of time the declaration that circumstances exist justifying the authorization of the emergency use of in vitro diagnostic tests for detection of SARS-CoV-2 virus and/or diagnosis of COVID-19 infection under section 564(b)(1) of the Act, 21 U.S.C. 360bbb-3(b)(1), unless the authorization is terminated or revoked sooner. COVID-19 SOFIAOrdered By: Ollie Mcgowan on 05-19-2022 SARS-CoV+SARS-CoV-2 (COVID-19) Ag IA.rapid Ql (Resp) Negative Negative [facility] Comment on above: This is a duplicate Monserrat SARS Antigen (THONG) result to be used for statistical tracking purpose only. Creatinine and Glomerular fi ltration rate.predicted panel (S/P/Bld)Ordered By: Milady Ybarra on 05-19-2022 Creatinine [Mass/Vol] 1.13 mg/dL 0.64-1.27 [facility] Eosinophils Auto (Bld) [#/Vo l]Ordered By: Milady Ybarra on 05-19-2022 Eosinophils (Bld) [#/Vol] 0.2 10*3/uL 0.0-0.45 [facility] Eosinophils/100 WBC Auto (Bl d)Ordered By: Milady Ybarra on 05-19-2022 Eosinophils/100 WBC (Bld) 3.8 % . [facility] Erythrocyte sedimentation ra te by Photometric methodOrdered By: Milady Ybarra on 05-19-2022 ESR Photometric method (Bld) [Velocity] 25 mm/hr 0- [facility] Estimated glomerular filtrat ion rate (GFR) non- AmericanOrdered By: Milady Ybarra on 05-19-2022 GFR/1.73 sq M.predicted among non-blacks MDRD (S/P/Bld) [Vol rate/Area] > 60 mL/Min [facility] Laboratory - Chemistry and C hemistry - challengeOrdered By: Milady Ybarra on 05-19-2022 Magnesium [Mass/Vol] 2.1 mg/dL 1.6-2.6 [facility] Laboratory - Hematology and Cell countsOrdered By: Milady Ybarra on 05-19-2022 Nucleated RBC/100 WBC (Bld) [Ratio] 0.0 % 0-0.5 [facility] WBC (Bld) [#/Vol] 6.5 10*3/uL 4.5-11.0 [facility] - Microbiology an d Antimicrobial susceptibilityOrdered By: Rommel Mcgowan on 05-19-2022 SARS-CoV-2 (COVID-19) RNA HAY+probe Ql (Unsp spec) N/A [facility] Lymphocytes Auto (Bld) [#/Vo l]Ordered By: Milady Ybarra on 05-19-2022 Lymphocytes (Bld) [#/Vol] 1.5 10*3/uL 1.00-4.8 [facility] Lymphocytes/100 WBC Auto (Bl d)Ordered By: Milady Ybarra on 05-19-2022 Lymphocytes/100 WBC (Bld) 23.3 % . [facility] Monocytes Auto (Bld) [#/Vol] Ordered By: Milady Ybarra on 05-19-2022 Monocytes (Bld) [#/Vol] 0.8 10*3/uL 0.0-0.8 [facility] Monocytes/100 WBC Auto (Bld) Ordered By: Milady Ybarra on 05-19-2022 Monocytes/100 WBC (Bld) 12.7 % . [facility] Neutrophils Auto (Bld) [#/Vo l]Ordered By: Milady Ybarra on 05-19-2022 Neutrophils (Bld) [#/Vol] 3.9 10*3/uL 1.8-7.7 [facility] Neutrophils/100 WBC Auto (Bl d)Ordered By: Milady Ybarra on 05-19-2022 Neutrophils/100 WBC (Bld) 59.8 % . [facility] No Panel InformationOrdered By: Milady Ybarra on 05-19-2022 Estimated GFR () > 60 mL/Min [facility] Comment on above: GFR estimated refere nce range: According to KDOQI guidelines, <60 ml/min/1.73m2 is sufficient to diagnose a patient with chronic kidney disease. Pharmacy Creatinine Clearance (Chem 80.94 [facility] No Panel InformationOrdered By: Rommel Mcgowan on 05-19-2022 SARS Antigen (LFIA) [facility] Serum or plasma C reactive p rotein measurement (mass/volume)Ordered By: Milady Ybarra on 05-19-2022 CRP [Mass/Vol] 2.2 mg/dL 0.0-1.0 [facility] Serum or plasma calcium clarita urement (mass/volume)Ordered By: Milady Ybarra on 05-19-2022 Calcium [Mass/Vol] 8.9 mg/dL 8.2-10.2 [facility] Serum or plasma chloride dandre surement (moles/volume)Ordered By: Milady Ybarra on 05-19-2022 Chloride [Moles/Vol] 102 mmol/L 95-114 [facility] Serum or plasma glucose clarita urement (mass/volume)Ordered By: Milady Ybarra on 05-19-2022 Glucose [Mass/Vol] 137 mg/dL 70-100 [facility] Comment on above: ADA recommended refe rence range Random Glucose Reference Range is dependent on time and content of last meal. Glucose of more than 200 mg/dL in a nonstressed, ambulatory subject supports the diagnosis of Diabetes Mellitus. Serum or plasma potassium me asurement (moles/volume)Ordered By: Milady Ybarra on 05-19-2022 Potassium [Moles/Vol] 3.8 mmol/L 3.5-5.1 [facility] Serum or plasma sodium measu rement (moles/volume)Ordered By: Milady Ybarra on 05-19-2022 Sodium [Moles/Vol] 138 mmol/L 136-146 [facility] Serum or plasma total carbon dioxide measurement (moles/volume)Ordered By: Milady Ybarra on 05-19-2022 CO2 [Moles/Vol] 25.9 mmol/L 22.0-30.0 [facility] Serum or plasma urea nitroge n measurement (mass/volume)Ordered By: Milady Ybarra on 05-19-2022 Urea nitrogen [Mass/Vol] 9 mg/dL 9- [facility] Body fluid albumin measureme nt (mass/volume)Ordered By: Rommel Mcgowan on 05-18-2022 Albumin (Body fld) [Mass/Vol] 3.4 g/dL 3.2-5.5 [facility] Globulin Calc (S) [Mass/Vol] Ordered By: Rommel Mcgowan on 05-18-2022 Globulin (S) [Mass/Vol] 3.6 g/dL [facility] Protein [Mass/volume] in Ser um or PlasmaOrdered By: Rommel Mcgowan on 05-18-2022 Protein [Mass/Vol] 7.0 g/dL 6.1-7.9 [facility] Serum or plasma alanine galvan otransferase measurement without P-5'-P (enzymatic activiOrdered By: Rommel Mcgowan on 05-18-2022 ALT No additional P-5'-P [Catalytic activity/Vol] 28 U/L 10-60 [facility] Serum or plasma albumin/glob ulin mass ratioOrdered By: Rommel Mcgowan on 05-18-2022 Albumin/Globulin [Mass ratio] 0.9 {ratio} [facility] Serum or plasma alkaline wandy sphatase measurement (enzymatic activity/volume)Ordered By: Rommel Mcgowan on 05-18-2022 ALP [Catalytic activity/Vol] 89 U/L 32-92 [facility] Serum or plasma aspartate am inotransferase measurement (enzymatic activity/volume)Ordered By: Rommel Mcgowan on 05-18-2022 AST [Catalytic activity/Vol] 39 U/L 10-42 [facility] Serum or plasma total biliru bin measurement (mass/volume)Ordered By: Rommel Mcgowan on 05-18-2022 Bilirubin [Mass/Vol] 0.4 mg/dL 0.3-1.2 [facility] HISTORY PHYSICALon HISTORY PHYSICAL HNO ID: [id number] Author: Alicia Izaguirre MD Service: Pain Management Author Type: Physician Type: HANDP Filed: 01/21/2022 12:03 PM Note Text: PROCEDURAL SEDATION HISTORY AND PHYSICAL EXAM SERVICE DATE: 01/21/2022 SERVICE TIME: 11:26 AM Subjective HPI: This is a 71 year old male who presents with mid to low back pain that radiates down into both legs, 7/10 and sharp in nature. PAST ANESTHESIA HISTORY: No history of adverse event PAST MEDICAL HISTORY Diagnosis Date - Asthma - BPH (benign prostatic hyperplasia) - GERD (gastroesophageal reflux disease) - History of colonic polyps - Other hyperlipidemia - Paraplegia (HCC) - Primary hypertension PAST SURGICAL HISTORY Procedure Laterality Date - BACK SURGERY HX - HAND SURGERY HX Left - PAST SURGICAL HISTORY OF 02/17/2005 T10-T11 DISCECTOMY FUSION INST ([facility]) - REMV CATARACT EXTRACAP,INSERT LENS Left 01/14/2022 Aim -1.00 Prior to Admission medications as of 01/09/22 1022 Medication Sig Last Dose Taking atorvastatin (LIPITOR) 40 mg tablet Take 40 mg by mouth once daily. 01/20/2022 at Unknown time Yes pravastatin (PRAVACHOL) 40 mg tablet 1 tablet Once a day Orally 90 days 01/20/2022 at Unknown time Yes aspirin 81 mg chewable tablet Take 81 mg by mouth once daily. 01/20/2022 at Unknown time Yes dicyclomine (BENTYL) 20 mg tablet 1 tablet 01/20/2022 at Unknown time Yes enalapril (VASOTEC) 20 mg tablet Take 20 mg by mouth. 01/20/2022 at Unknown time Yes hydrOXYzine pamoate (VISTARIL) 50 mg capsule TAKE 1 CAPSULE EVERY 8 HOURS 01/20/2022 at Unknown time Yes losartan (COZAAR) 25 mg tablet Take 25 mg by mouth twice daily. 01/20/2022 at Unknown time Yes metoprolol tartrate, short acting, (LOPRESSOR) 50 mg tablet Take 100 mg by mouth. 01/20/2022 at Unknown time Yes terazosin (HYTRIN) 5 mg capsule Take 10 mg by mouth daily at bedtime. 01/20/2022 at Unknown time Yes amoxicillin-clavulanic acid (AUGMENTIN) 875-125 mg per tablet Take by mouth. insulin glargine (LANTUS U-100 INSULIN) 100 unit/mL injection Inject subcutaneously. tiZANidine (ZANAFLEX) 4 mg tablet Take 1 tablet by mouth every 8 hours as needed. cephALEXin (KEFLEX) 500 mg capsule TAKE 1 CAPSULE BY MOUTH EVERY 6 HOURS for 7 (SEVEN) days neomycin/polymyxin b/dexametha(MAXITROL 3.5 MG/G-10,000 UNIT/G-0.1 % EYE OINTMENT) right socket only four times a day for a week then twice daily x 1 week, then stop. traMADol (ULTRAM) 50 mg tablet Take by mouth. dutasteride (AVODART) 0.5 mg capsule [address] (PROTONIX) 20 mg tablet Take 1 tablet by mouth. erythromycin (ROMYCIN) 5 mg/gram (0.5 %) ophthalmic ointment Use 1 application in the right eye twice daily. meloxicam (MOBIC) 15 mg tablet 1 tablet albuterol HFA (PROVENTIL HFA, VENTOLIN HFA) 90 mcg/actuation inhaler Inhale 2 Puffs as instructed every 4 hours as needed. ammonium lactate (LAC-HYDRIN) 12 % lotion docusate sodium (COLACE) 100 mg capsule 1 capsule as needed FLOVENT HFA 110 mcg/actuation inhaler twice daily. hydroCHLOROthiazide (HYDRODIURIL, ESIDRIX) 25 mg tablet 1 tab insulin regular human (NOVOLIN R REGULAR U-100 INSULN) 100 unit/mL injection 45 units nitroglycerin sublingual (NITROQUICK) 0.4 mg SL tablet Dissolve 0.4 mg under the tongue. Lisinopril, Bulk, 100 % powd Take 10 mg by mouth. amLODIPine (NORVASC) 10 mg tablet Take 10 mg by mouth. amitriptyline (ELAVIL) 100 mg tablet Take 150 mg by mouth. ALLERGIES No Known Allergies Objective PHYSICAL EXAM: The remainder of the physical exam is noncontributory. WOUND: Clean, dry and intact, small skin tear to R inner thigh. AIRWAY: Airway Visualization of Uvula: Yes Mouth opening greater than 2 fingerbreadths: Yes Neck Full Range of Motion: Yes LUNGS: Lungs clear to auscultation CARDIAC: Regularly irregular,Regular rate Assessment/Plan ASA Class: ASA Class:: Patient with severe systemic disease Active Problems: * No active hospital problems. * Resolved Problems: * No resolved hospital problems. * Medication and Non-Pharmacologic VTE Prophylaxis/Anticoagulants VTE Prophylaxis: not indicated Provisional Diagnosis/Treatment Plan: Lumbar radiculopathy, planned for TFE SI. SEDATION GOAL: Moderate SIGNATURE: Katerina Carpenter APRN.CNP PATIENT NAME: Trey Figueroa DATE: January 21, 2022 TIME: 11:26 AM The History and Physical (completed in the past 30 days) has been reviewed and the patient has been examined. The contents accurately reflect the patient's condition with the following additions or revisions since the HANDP was completed. Today?s examination indicates no changes. This HANDP can be found in the attached. I have personally reviewed the risks, benefits, alternatives, expectations and personnel with the patient and have answered their questions. We are ready to proceed with the procedure as planned. SIGNATURE: Dr. Izaguirre PATIENT NAME: Trey Figueroa DATE: January 21, 2022 12:0 (more content not included)... [facility] NURSING PROGon 01-21-2022 NURSING PROG HNO ID: [id number] Author: Christine Lisa RN Service: ? Author Type: Registered Nurse Type: Nursing Progress Note Filed: 01/21/2022 4:41 PM Note Text: 1615 Dr Izaguirre in to reassess patient. Aware of patient impatience to leave. Pt. States he will ride by public w/c transport and has ramps to get in home so will stay in w/c until weakness is gone. Cleared for D/c by Dr Izaguirre [facility] NURSING PROG HNO ID: [id number] Author: Christine Lisa RN Service: ? Author Type: Registered Nurse Type: Nursing Progress Note Filed: 01/21/2022 4:10 PM Note Text: Patient becoming agitated and insisting on trying to stand when legs still exhibiting numbness. Attempting to calm the patient [facility] NURSING PROG HNO ID: [id number] Author: Christine Lisa RN Service: ? Author Type: Registered Nurse Type: Nursing Progress Note Filed: 01/21/2022 3:15 PM Note Text: Assist up to w/c with 2 RN's. Patient c/o my legs are getting numb . Dr Izaguirre in to evaluate patient. Unconcerned but will continue to monitor. [facility] NURSING PROG HNO ID: [id number] Author: Christine Lisa RN Service: ? Author Type: Registered Nurse Type: Nursing Progress Note Filed: 01/21/2022 2:07 PM Note Text: 1405 Patient discharged from system although continuing to monitor in PHll recovery until transported to OR for re-attempt at procedure; [facility] NURSING PROG HNO ID: [id number] Author: Christine Lisa RN Service: ? Author Type: Registered Nurse Type: Nursing Progress Note Filed: 01/21/2022 1:31 PM Note Text: EKG done as ordered at 12:30pm - seen by Dr Izaguirre. [employer] pursuing old EKG from PCP. 13:30 Dr Izaguirre aware of old EKG report and will attempt injection again. BS resolving with D5W [facility] NURSING PROG HNO ID: [id number] Author: Melissa James RN Service: Nursing Author Type: Registered Nurse Type: Nursing Progress Note Filed: 01/21/2022 2:30 PM Note Text: Pt difficult to arouse after receiving Versed 2mg and simulataneously could not remain still during procedure. Also noted to have cardiac arrhythmia on monitor. VSS. Dr. Izaguirre notified of arrhythmia. After attempting procedure, decision was made to abort the procedure. [facility] OPERATIVE NOon 01-21-2022 OPERATIVE NO HNO ID: [id number] Author: Alicia Izaguirre MD Service: Pain Management Author Type: Physician Type: Operative Report Filed: 01/21/2022 2:44 PM Note Text: OPERATIVE/PROCEDURE REPORT LOG ID: [id number] SURGERY/PROCEDURE DATE: 01/21/2022 INCISION/PROCEDURE START TIME: 2:34 PM INCISION CLOSE/PROCEDURE END TIME: 2:40 PM PRE-OP/PRE-PROCEDURE DIAGNOSIS: Lumbar radiculopathy [M54.16] POST-OP/POST-PROCEDURE DIAGNOSIS: same SURGERY/PROCEDURE(S): Procedure(s) (LRB): SACRAL(CAUDAL) EPIDURAL BLOCK W/INJECTION NON NEUROLYTIC W/IMAGE GUIDANCE (N/A) SURGEON(S)/PROCEDURALIST(S) AND CHAIN MAKER(S): Surgeon(s) and Role: * Alicia Izaguirre MD - Primary No Additional House Worker General(s): None, I performed the entire procedure. ANESTHESIA: : Local SEDATION: None SEDATION START TIME: SEDATION END TIME: SUBJECTIVE: Trey Figueroa is a 71 year old male [facility] with complaints of lower back pain and lower extremity pain. IINDICATIONS: suspected radicular pain at the L5-S1, neurogenic claudication. SURGERY/PROCEDURE DETAILS: IV was started prior to the procedure. The patient was transported to the fluoroscopy suite and was placed in a prone position on the fluoroscopy table with a pillow under the abdomen to reduce the lumbar lordosis.The patient was monitored using pulse oximetry, intermittent blood pressure reading and 3-lead EKG. Using sterile technique, the skin over the lumbosacral spine was prepped with povidone-iodine and draped. The sacrum, sacral cornua and coccyx were identified by palpation and under fluoroscopic imaging in an AP and lateral view. The skin and the subcutaneous tissues at the entry site were anesthetized with 2 ml of lidocaine 0.5%. A 20 gauge 6 inch Spinal needlewas advanced into the sacral hiatus under intermittent AP and lateral fluoroscopic guidance until the needle passed through the sacrococcygeal ligament and then advanced another 1cm to the caudal epidural space. The final needle position was confirmed using an AP and lateral fluoroscopic imaging. After negative aspiration of blood or CSF, 1 ml of iohexal 300 was injected with live fluoroscopy. Epidural spread of contrast from Lower border of L4 to S2 was confirmed. Eight ml of 0.5% lidocaine with 40 mg triamcinolone was injected and the needle was removed. The injection site was cleaned and dried and a sterile dressing was applied. The patient was taken to the post-block recovery area for further observation. FINDINGS: Technically adequate procedure COMPLICATIONS: None ESTIMATED BLOOD LOSS: minimal SPECIMENS: None IMPLANTABLE DEVICES: None DRAINS: None ASSESSMENT: Lumbar radiculopathy [M54.16] PLAN: The effect of the procedure will be evaluated at the next visit. Follow-up Appointment: 3-4 weeks for an office visit SIGNATURE: Alicia Izaguirre MD PATIENT NAME: Trey Figueroa DATE: January 21, 2022 TIME: 2:42 PM [facility] OPERATIVE NO HNO ID: [id number] Author: Alicia Izaguirre MD Service: Pain Management Author Type: Physician Type: Operative Report Filed: 01/21/2022 12:17 PM Note Text: OPERATIVE/PROCEDURE REPORT LOG ID: [id number] SURGERY/PROCEDURE DATE: 01/21/2022 INCISION/PROCEDURE START TIME: 12:07 PM INCISION CLOSE/PROCEDURE END TIME: PRE-OP/PRE-PROCEDURE DIAGNOSIS: Lumbar radiculopathy [M54.16] POST-OP/POST-PROCEDURE DIAGNOSIS: same SURGERY/PROCEDURE(S): Procedure(s) (LRB): INJECTION(S) STEROID TRANSFORAMINAL EPIDURAL W/ IMAGING GUIDANCE LUMBAR (Bilateral) procedure cancelled SURGEON(S)/PROCEDURALIST(S) AND CHAIN MAKER(S): Surgeon(s) and Role: * Alicia Izaguirre MD - Primary No Additional House Worker General(s): None, I performed the entire procedure. ANESTHESIA: Local SEDATION: Moderate Sedation; midazolam 2 mg AND fentanyl 0 mcg, ASA II, normal airway, chest excursion and heart rate. Airway reassessed immediately prior to medication administration and IV sedation was administered incrementally to allow the patient to remain comfortable and conversant throughout the procedure. SEDATION START TIME: 12:04 PM SEDATION END TIME: SUBJECTIVE: Trey Figueroa is a 71 year old male presents to the [facility] with complaints of lower back pain and lower extremity pain. INDICATIONS: suspected radicular pain at the L5-S1 SURGERY/PROCEDURE DETAILS: IV was started prior to the procedure. The patient was transported to the fluoroscopy suite and was placed in a prone position on the fluoroscopy table with a pillow under the abdomen to reduce the lumbar lordosis.The patient was monitored using pulse oximetry, intermittent blood pressure reading and 3-lead EKG. Using sterile technique, the skin over the lumbar spine was prepped with povidone-iodine and draped. The bilateral L5-S1 neural foramen/foramina was/were identified under fluoroscopy in an oblique view with the superior articular process of the inferior vertebral body aligned with the pedicle. The skin and the subcutaneous tissues at the entry site were anesthetized with 2 ml of lidocaine 0.5%.A 20 gauge, 6 inch Tuohy needle was advanced coaxially under intermittent AP and lateral fluoroscopic guidance toward the 6 o?clock position of the pedicle. The final needle position in the neural foramen was confirmed using a PA lateral fluoroscopic imaging. At this time patient start moving of the table and he was told by the nurses and the needle was removed. The needle was repositioned however the patient again could not tolerate the paresthesia and start almost jumping of the table requiring 4 people to hold him down. At this time also he started having some EKG changes and it was felt that continuation with the procedure will be unsafe. The needle was removed and the patient was taken to the recovery area The patient was taken to the post-block recovery area for further observation. FINDINGS: The procedure was canceled COMPLICATIONS: None ESTIMATED BLOOD LOSS: minimal SPECIMENS: None IMPLANTABLE DEVICES: None DRAINS: None ASSESSMENT: Lumbar radiculopathy [M54.16] PLAN: Patient to follow-up in the office to discuss other treatment option Follow-up Appointment: 3-4 weeks for an office visit SIGNATURE: Alicia Izaguirre MD PATIENT NAME: Trey Figueroa DATE: January 21, 2022 TIME: 12:12 PM Normal [facility] CREATININE, BLOOD (POC)on Creatinine [Mass/Vol] 1.30 mg/dL 0.7 - 1.4 mg/dL [facility] eGFR (POCT) 54 mL/min/1.73 m2 [facility] eGFR- (POCT) [facility] CT ORBITS W IVCONon 12-20-19 [facility] Laboratory - Chemistry and C hemistry - challengeon 10-29-2021 Cholesterol [Mass/Vol] 167\S\167 Normal 140-200 -[facility] Emitlessu ravi 250 DO Work Phone: Comment on above: Chol less than 200 m g/dl low risk Chol 201-239 mg/dl borderline risk Chol 240 mg/dl and greater high risk Cholesterol in LDL [Mass/Vol] 114\S\114 above high threshold 0-100 [facility] Hiberna ravi 250 DO Work Phone: Comment on above: LDL ATP III CLASSIFI CATION LDL less than 100 mg/dL Optimal LDL 100-129 mg/dL Near or above optimal LDL 130-159 mg/dL Borderline high LDL 160-189 mg/dL High LDL greater than 189 mg/dL [facility] Laboratory - Microbiology an d Antimicrobial susceptibilityon 10-29-2021 SARS-CoV-2 (COVID-19) RNA HAY+probe Ql (Unsp spec) [facility] [employer] ravi 250 DO Work Phone: No Panel Informationon 10-29 1.1\S\1.1 Normal [facility] 250 DO Work Phone: Comment on above: INR Therapeutic Rang e A) Pre- and Peroperative OAT started two weeks before surgery. NOT HIP SURGERY: 1.5 - 2.5 HIP SURGERY: 2 - 3 B) Primary and secondary prevention of venous THROMBOSIS: 2 - 3 C) Active venous thrombosis, pulmonary embolism and prevention of recurrent venous thrombosis: 2 - 3 D) Prevention of arterial thromboembolism including patients with mechanical heart valves: 3 - 4.5 11.9\S\11.9 Normal 9.0-12.9 [facility] ravi 250 DO Work Phone: 30.0\S\30.0 Normal 25.1-36.5 [facility] ravi 250 DO Work Phone: Comment on above: PERFORMED BY:[place] [address] [address] [place], [place] [id number] MEDICAL DIRECTORTHERESA CHOUDHARY M.D. 72.0\S\72.0 Normal . [facility] ravi 250 DO Work Phone: 7.9\S\7.9 Normal 6.6-10.1 [facility] 250 DO Work Phone: [phone] Normal 150-450 [facility] 250 DO Work Phone: 13.3\S\13.3 Normal 12.0-14.8 [facility] ravi 250 DO Work Phone: [phone] 33.5\S\33.5 Normal 32.5-35.6 -[facility]-Sandu ravi 250 DO Work Phone: [phone] 29.3\S\29.3 Normal 27.5-35.2 [facility]-Sandu ravi 250 DO Work Phone: [phone] 5.9\S\5.9 Normal 1.8-7.7 -[facility]-Sandu ravi 250 DO Work Phone: [phone] 0.2\S\0.2 Normal 0.0-0.45 -[facility]-Sandu ravi 250 DO Work Phone: [phone] 0.7\S\0.7 Normal 0.0-0.8 [facility]-Sandu ravi 250 DO Work Phone: [phone] 2.9\S\2.9 Normal . [facility]-Sandu ravi 250 DO Work Phone: [phone] 9.1\S\9.1 Normal . [facility]-Sandu ravi 250 DO Work Phone: [phone] 15.3\S\15.3 Normal . [facility] Heart-Mary Aliceu ravi 250 DO Work Phone: [phone] 0.1\S\0.1 Normal 0.0-0.2 [facility] Heart-Autumn ravi 250 DO Work Phone: Comment on above: PERFORMED BY:[place] [address] [address] [place], [place] [phone] MEDICAL DIRECTORTHERESA CHOUDHARY M.D. 1.3\S\1.3 Normal 1.00-4.8 -[facility] Heart-Mary Aliceu ravi 250 DO Work Phone: [phone] 87.4\S\87.4 Normal 83.5-101 [facility] Heart-Mary Aliceu ravi 250 DO Work Phone: [phone] 41.5\S\41.5 Normal 38.8-50.0 [facility] Heart-Sandu ravi 250 DO Work Phone: [phone] 13.9\S\13.9 Normal 13.0-17.0 -[facility] Heart-Sandu ravi 250 DO Work Phone: [phone] 4.75\S\4.75 Normal 3.90-5.60 [facility] Heart-Mary Aliceu ravi 250 DO Work Phone: [phone] 8.2\S\8.2 Normal 4.1-10.5 -[facility] Heart-Mary Aliceu ravi 250 DO Work Phone: [phone] Negative Normal Negative -[facility]-Sandu ravi 250 DO Work Phone: Comment on above: This is a duplicate Monserrat SARS Antigen (THONG) result to be used for statistical tracking purpose only.PERFORMED BY:[place] [id number] [address] [place], [place] [id number] MEDICAL DIRECTORTHERESA CHOUDHARY M.D. 22.1\S\22.1 Normal 22.0-30.0 [facility] DO Work Phone: 101\S\101 Normal 95-114 [facility] Work Phone: 4.2\S\4.2 Normal 3.5-5.1 [facility] DO Work Phone: 135\S\135 below low threshold 136-146 [facility] DO Work Phone: 15\S\15 Normal 9-23 [facility] DO Work Phone: 4.4\S\4.4 Normal <5.0 [facility] DO Work Phone: Comment on above: PERFORMED BY:[place] [id number] [address] [place] [id number] MEDICAL DIRECTORJIANLAN SUN M.D. 14\S\14 Normal [facility] [employer] Cortez DO Work Phone: 73\S\73 Normal 35-149 [facility] Liliam Cortez DO Work Phone: Comment on above: TRIG ATP III CLASSIF ICATION TRIG less than 150 mg/dL Normal TRIG 150-199 mg/dL Borderline high TRIG 200-500 mg/dL High TRIG greater than 500 mg/dL Very high Standard traceable to the Center for Disease Conrtrol and Prevention (CDC) test method. 38\S\38 Normal 29-71 [facility] Liliam Cortez DO Work Phone: Comment on above: HDL CHOL ATP-III CLA SSIFICATION Cardiovascular Risk HDL > or equal to 60 mg/dL LOW HDL < 40 mg/dL HIGH 71.45\S\71.45 Normal [facility] [employer] Cortez DO Work Phone: 58\S\58 Normal [facility] Liliam Cortez DO Work Phone: Comment on above: GFR estimated refere nce range: According to KDOQI guidelines, <60 ml/min/1.73m2 is sufficient to diagnose a patient with chronic kidney disease. 48\S\48 Normal [facility] Liliam Cortez DO Work Phone: 1.44\S\1.44 above high threshold 0.64-1.27 [facility] [employer] Cortez DO Work Phone: Office Visit (Cardiology)on 10-24-2021 Follow-up visit Diagnoses/Problems Assessed Pre-operative examination (V72.84) (Z01.818) Dyspnea (786.09) (R06.00) Hypertension (401.9) (I10) Hyperlipidemia (272.4) (E78.5) Diabetes (250.00) (E11.9) Former smoker (V15.82) (Z87.891) Quit 35 years ago PVC (premature ventricular contraction) (427.69) (I49.3) Abnormal stress test (794.39) (R94.39) Orders Abnormal stress test, Dyspnea, Pre-operative examination Cardiac Catherization; Status:Active; Requested for:24Oct2021; Pre-operative examination IO EKG Electrocardiogram- 12 Lead; Status:Complete; Done: [id number] SocHx: Former smoker Tobacco Use Screening; Status:Complete; Done: [id number] Tobacco Use Screening; Status:Complete; Done: [id number] Patient Instructions By signing my name below, ILisa LPN, Scribe, attest that this documentation has been prepared under the direction and in the presence of Dr. Sandeep Mendez DO. Please bring all medicines, vitamins, and herbal supplements with you when you come to the office. Prescriptions will not be filled unless you are compliant with your follow up appointments or have a follow up appointment scheduled as per instruction of your physician. Refills should be requested at the time of your visit. Follow up after testing completed Chief Complaint TREY FIGUEROA is being seen for an initial evaluation of. Patient is a 71-year-old Afro-[place] gentleman seen in cardiology consultation at the [facility] following recent stress imaging that was read by one of our partners and revealed reduced left ventricular function with ejection fraction of 33% no perfusion abnormalities. Notably, patient has very frequent PVCs historically as well as currently today as evidenced on today's ECG and during the stress testing. He is seen in preoperative risk assessment and clearance prior to shrapnel removal of his right thigh from remote trauma. He does complain of worsening exertional dyspnea over the past several months he also admits to exertional chest discomfort lasting approximately 10 to 15 minutes resolves with rest. 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 He is however able to ambulate approximately 20 to 30 feet on his own. He is otherwise ambulates with wheelchair assistance. His ECG today demonstrates sinus rhythm with left axis, PACs and PVCs that are multifocal. His comorbidities include obesity, diabetes, hypertension, hyperlipidemia, former smoker. Patient has a undisclosed cardiomyopathy of unknown etiology with evidence of multifocal PVCs, with risk factors as noted. Recommendations are to proceed with invasive assessment with cardiac catheterization. Risk benefits alternatives and informed decision-making process performed for over 30 minutes this afternoon we will proceed, initiate aspirin 81 daily, and follow-up thereafterwards. If in fact he has anatomy that is deemed worthy of revascularization of course physiologic evaluation and possible revascularization were also discussed with him. We also discussed that if in fact he undergoes revascularization that would delay his surgical intervention for his thigh. Surgical History Problems History of Elbow surgery History of Eye surgery History of Hand surgery Current Meds Medication NameInstruction Amitriptyline HCl - 150 MG Oral TabletTAKE 1 TABLET AT BEDTIME amLODIPine Besylate 10 MG Oral TabletTAKE 1 TABLET BY MOUTH EVERY DAY Aspirin Low Dose 81 MG Oral Tablet ChewableTAKE 1 TABLET BY MOUTH EVERY DAY Doxycycline Hyclate 100 MG Oral CapsuleTAKE 1 CAPSULE TWICE DAILY FOR 10 DAYS for diabetic foot ulcer Dutasteride 0.5 MG Oral CapsuleTAKE 1 CAPSULE BY MOUTH EVERY DAY Flovent HFA 110 MCG/ACT Inhalation AerosolINHALE 1 PUFF BY MOUTH TWICE DAILY Gabapentin 300 MG Oral CapsuleTAKE 3 CAPSULES BY MOUTH THREE TIMES DAILY HumaLOG 100 UNIT/ML Subcutaneous Solution hydroCHLOROthiazide 25 MG Oral TabletTAKE 1 TABLET EVERY DAY HYDROcodone-Acetaminophen 5-325 MG Oral Tablet hydrOXYzine Pamoate 50 MG Oral CapsuleTAKE 1 CAPSULE EVERY 8 HOURS Lantus 100 UNIT/ML Subcutaneous Solution Losartan Potassium 25 MG Oral TabletTAKE 1 TABLET EVERY DAY Metoprolol Tartrate 100 MG Oral TabletTAKE 1 TABLET BY MOUTH EVERY DAY WITH FOOD Nitroglycerin 0.4 MG Sublingual Tablet SublingualDISSOLVE 1 TABLET UNDER THE TONGUE NEEDED FOR CHEST PAIN- MAY REPEAT EVERY 5 MINUTES IF NEEDED ( MAX 3 DOSES.- IF NO RELIEF CALL 911) Omeprazole 40 MG Oral Capsule Delayed ReleaseTAKE 1 CAPSULE BY MOUTH 30 minutes before morning meal Pantoprazole Sodium 20 MG Oral Tablet Delayed ReleaseTAKE 1 TABLET BY MOUTH EVERY DAY Pravastatin Sodium 40 MG Oral TabletTAKE 1 TABLET BY MOUTH DAILY Sulfamethoxazole-Trimethopr im 800-160 MG Oral TabletTAKE 1 TABLET BY MOUTH TWICE DAILY for 7 (SEVEN) days Terazosin HCl - 10 MG Oral CapsuleTAKE 2 CAPSULES DAILY. traMADol HCl - 50 MG Oral TabletTAKE 1 TABLET TWICE DAILY NEEDED FOR PAIN FOR 30 DAYS Ventolin (more content not included)... Normal [facility] Tobacco Screening.on 021 Fall risk assessment b) One or more fall s in the last year [facility] [employer] 250 DO Work Phone: Tobacco use status [facility] [employer] 250 DO Work Phone: Vital Signs Date Time Vital Sign Value Performing Clinician Facility 12-05-2023 23:00-0500 Diastolic blood pressure 60 mm[Hg] [facility] Work Phone: [facility] 12-05-2023 23:00-0500 Heart rate 103 /min [facility] Work Phone: [facility] 12-05-2023 23:00-0500 Respiratory rate 18 /min [facility] Work Phone: [facility] 12-05-2023 23:00-0500 SaO2% (BldA) [Mass fraction] 96 % [facility] Work Phone: [facility] 12-05-2023 23:00-0500 Systolic blood pressure 134 mm[Hg] [facility] Work Phone: [facility] 12-05-2023 21:07-0500 Body temperature 99.6 [degF] [facility] Work Phone: [facility] 12-05-2023 18:20-0500 Body height 195.58 cm [facility] Work Phone: [facility] 12-05-2023 18:20-0500 Body weight 143.78 kg [facility] Work Phone: [facility] 11-05-2023 23:07-0500 Body height 195.58 cm [facility] Work Phone: [facility] 11-05-2023 23:07-0500 Body temperature 98.1 [degF] [facility] Work Phone: [facility] 11-05-2023 23:07-0500 Body weight 143.78 kg [facility] Work Phone: [facility] 11-05-2023 23:07-0500 Diastolic blood pressure 86 mm[Hg] [facility] Work Phone: [facility] 11-05-2023 23:07-0500 Heart rate 72 /min [facility] Work Phone: [facility] 11-05-2023 23:07-0500 Respiratory rate 16 /min [facility] Work Phone: [facility] 11-05-2023 23:07-0500 SaO2% (BldA) [Mass fraction] 98 % [facility] Work Phone: [facility] 11-05-2023 23:07-0500 Systolic blood pressure 143 mm[Hg] [facility] Work Phone: [facility] 09-24-2023 14:56-0400 Blood Pressure Location TAYLERDAISY GARCIARY [facility] 09-24-2023 14:56-0400 Diastolic blood pressure 73 mm[Hg] TAYLER LAISHA [facility] 09-24-2023 14:56-0400 Heart rate 63 /min TAYLER LAISHA [facility] 09-24-2023 14:56-0400 Systolic blood pressure 113 mm[Hg] TAYLER LAISHA [facility] 08-15-2023 15:00-0400 Heart rate 80 /min Issa Sarmini [facility] 08-15-2023 15:00-0400 Respiratory rate 24 /min Issa Sarmini [facility] 08-15-2023 14:50-0400 Diastolic blood pressure 71 mm[Hg] Issa Sarmini [facility] 08-15-2023 14:50-0400 Heart rate 77 /min Issa Sarmini [facility] 08-15-2023 14:50-0400 Respiratory rate 20 /min Issa Sarmini [facility] 08-15-2023 14:50-0400 SaO2% (BldA) [Mass fraction] 98 % Issa Sarmini [facility] 08-15-2023 14:50-0400 Systolic blood pressure 133 mm[Hg] Issa Sarmini [facility] 08-15-2023 14:35-0400 Diastolic blood pressure 61 mm[Hg] Issa Sarmini [facility] 08-15-2023 14:35-0400 Heart rate 85 /min Issa Sarmini [facility] 08-15-2023 14:35-0400 Respiratory rate 20 /min Issa Sarmini [facility] 08-15-2023 14:35-0400 Systolic blood pressure 103 mm[Hg] Issa Sarmini [facility] 08-15-2023 14:24-0400 Body temperature 97.52 [degF] Issa Sarmini [facility] 08-15-2023 14:15-0400 Respiratory rate 16 /min Issa Sarmini [facility] 08-15-2023 14:10-0400 Respiratory rate 16 /min Issa Sarmini [facility] 08-15-2023 12:05-0400 Blood Pressure Location Issa Sarmini [facility] 08-15-2023 12:05-0400 Body temperature 97.88 [degF] Issa Sarmini [facility] 07-31-2023 16:00-0400 Diastolic blood pressure 88 mm[Hg] [facility] Work Phone: [facility] 07-31-2023 16:00-0400 Heart rate 85 /min [facility] Work Phone: [facility] 07-31-2023 16:00-0400 Respiratory rate 18 /min [facility] Work Phone: [facility] 07-31-2023 16:00-0400 SaO2% (BldA) [Mass fraction] 96 % [facility] Work Phone: [facility] 07-31-2023 16:00-0400 Systolic blood pressure 128 mm[Hg] [facility] Work Phone: [facility] 07-31-2023 08:56-0400 Body temperature 98.2 [degF] [facility] Work Phone: [facility] 07-31-2023 06:00-0400 Body weight 129.3 kg [facility] Work Phone: [facility] 07-30-2023 21:47-0400 Body height 195.58 cm [facility] Work Phone: [facility] 07-30-2023 20:29-0400 Diastolic blood pressure 61 mm[Hg] [facility] Work Phone: [facility] 07-30-2023 20:29-0400 Heart rate 71 /min [facility] Work Phone: [facility] 07-30-2023 20:29-0400 Respiratory rate 18 /min [facility] Work Phone: [facility] 07-30-2023 20:29-0400 SaO2% (BldA) [Mass fraction] 99 % [facility] Work Phone: [facility] 07-30-2023 20:29-0400 Systolic blood pressure 146 mm[Hg] [facility] Work Phone: [facility] 07-30-2023 16:17-0400 Body height 195.58 cm [facility] Work Phone: [facility] 07-30-2023 16:17-0400 Body weight 143.78 kg [facility] Work Phone: [facility] 07-30-2023 16:13-0400 Body temperature 98.8 [degF] [facility] Work Phone: [facility] 07-28-2023 10:50-0400 Blood Pressure Location Issa Sarmini [facility] 07-28-2023 10:50-0400 Diastolic blood pressure 82 mm[Hg] Issa Sarmini [facility] 07-28-2023 10:50-0400 Heart rate 64 /min Issa Sarmini [facility] 07-28-2023 10:50-0400 Respiratory rate 16 /min Issa Sarmini [facility] 07-28-2023 10:50-0400 SaO2% (BldA) [Mass fraction] 98 % Issa Sarmini [facility] 07-28-2023 10:50-0400 Systolic blood pressure 126 mm[Hg] Issa Sarmini [facility] 03-21-2023 11:10-0400 Body height 195.6 cm Pacc 1 Work Phone: [facility] 03-21-2023 11:10-0400 Body temperature 97.9 [degF] Pacc 1 Work Phone: [facility] 03-21-2023 11:10-0400 Body weight 143.79 kg Pacc 1 Work Phone: [facility] 03-21-2023 11:10-0400 Diastolic blood pressure 74 mm[Hg] Pacc 1 Work Phone: [facility] 03-21-2023 11:10-0400 Heart rate 93 /min Pacc 1 Work Phone: [facility] 03-21-2023 11:10-0400 Respiratory rate 16 /min Pacc 1 Work Phone: [facility] 03-21-2023 11:10-0400 SaO2% (BldA) [Mass fraction] 98 % Pacc 1 Work Phone: [facility] 03-21-2023 11:10-0400 Systolic blood pressure 122 mm[Hg] Pacc 1 Work Phone: [facility] 02-26-2023 00:06-0400 Diastolic blood pressure 90 mm[Hg] [facility] Work Phone: [facility] 02-26-2023 00:06-0400 Heart rate 82 /min [facility] Work Phone: [facility] 02-26-2023 00:06-0400 Respiratory rate 16 /min [facility] Work Phone: [facility] 02-26-2023 00:06-0400 SaO2% (BldA) [Mass fraction] 98 % [facility] Work Phone: [facility] 02-26-2023 00:06-0400 Systolic blood pressure 127 mm[Hg] [facility] Work Phone: [facility] 02-25-2023 19:24-0400 Body temperature 98.1 [degF] [facility] Work Phone: [facility] 02-13-2023 10:12-0400 Body height 182.88 cm [facility] Work Phone: [facility] 02-13-2023 10:12-0400 Body mass index (BMI) [Ratio] 43 kg/m2 [facility] Work Phone: [facility] 02-13-2023 10:12-0400 Body weight 143.78 kg [facility] Work Phone: [facility] 02-13-2023 09:54-0400 Body temperature 97.8 [degF] [facility] Work Phone: [facility] 02-13-2023 09:54-0400 Diastolic blood pressure 68 mm[Hg] [facility] Work Phone: [facility] 02-13-2023 09:54-0400 Heart rate 78 /min [facility] Work Phone: [facility] 02-13-2023 09:54-0400 Respiratory rate 20 /min [facility] Work Phone: [facility] 02-13-2023 09:54-0400 Systolic blood pressure 115 mm[Hg] [facility] Work Phone: [facility] 01-13-2023 13:02-0500 Blood Pressure Location [facility] [employer] [facility] 01-13-2023 13:02-0500 Diastolic blood pressure 65 mm[Hg] [facility] 01-13-2023 13:02-0500 Systolic blood pressure 125 mm[Hg] [facility] 01-01-2023 13:12-0500 Diastolic blood pressure 72 mm[Hg] [facility] Work Phone: [facility] 01-01-2023 13:12-0500 Heart rate 72 /min [facility] Work Phone: [facility] 01-01-2023 13:12-0500 Respiratory rate 16 /min [facility] Work Phone: [facility] 01-01-2023 13:12-0500 SaO2% (BldA) [Mass fraction] 96 % [facility] Work Phone: [facility] 01-01-2023 13:12-0500 Systolic blood pressure 115 mm[Hg] [facility] Work Phone: [facility] 01-01-2023 12:12-0500 Body height 195.58 cm [facility] Work Phone: [facility] 01-01-2023 12:12-0500 Body temperature 97.9 [degF] [facility] Work Phone: [facility] 01-01-2023 12:12-0500 Body weight 139.25 kg [facility] Work Phone: [facility] 11-27-2022 14:20-0500 Body height 198.1 cm MICHAEL Mancera MD Work Phone: [facility] 11-27-2022 14:20-0500 Body weight 143.79 kg MICHAEL Mancera MD Work Phone: [facility] 11-27-2022 14:20-0500 Diastolic blood pressure 68 mm[Hg] MICHAEL Mancera MD Work Phone: [facility] 11-27-2022 14:20-0500 Heart rate 65 /min MICHAEL Mancera MD Work Phone: [facility] 11-27-2022 14:20-0500 SaO2% (BldA) [Mass fraction] 93 % MICHAEL Mancera MD Work Phone: [facility] 11-27-2022 14:20-0500 Systolic blood pressure 135 mm[Hg] MICHAEL Mancera MD Work Phone: [facility] 10-31-2022 09:48-0500 Body height 195.58 cm [facility] Work Phone: [facility] 10-31-2022 09:27-0500 Body temperature 97.7 [degF] [facility] Work Phone: [facility] 10-31-2022 09:27-0500 Diastolic blood pressure 76 mm[Hg] [facility] Work Phone: [facility] 10-31-2022 09:27-0500 Heart rate 64 /min [facility] Work Phone: [facility] 10-31-2022 09:27-0500 Respiratory rate 18 /min [facility] Work Phone: [facility] 10-31-2022 09:27-0500 Systolic blood pressure 124 mm[Hg] [facility] Work Phone: [facility] 10-30-2022 14:08-0500 Body weight 0 kg [facility] Work Phone: [facility] 10-17-2022 10:24-0500 Body height 198.12 cm [facility] Work Phone: [facility] 10-17-2022 10:24-0500 Body mass index (BMI) [Ratio] 36.6 kg/m2 [facility] Work Phone: [facility] 10-17-2022 10:24-0500 Body weight 143.78 kg [facility] Work Phone: [facility] 10-17-2022 10:14-0500 Body temperature 97.5 [degF] [facility] Work Phone: [facility] 10-17-2022 10:14-0500 Diastolic blood pressure 60 mm[Hg] [facility] Work Phone: [facility] 10-17-2022 10:14-0500 Heart rate 76 /min [facility] Work Phone: [facility] 10-17-2022 10:14-0500 Respiratory rate 18 /min [facility] Work Phone: [facility] 10-17-2022 10:14-0500 Systolic blood pressure 100 mm[Hg] [facility] Work Phone: [facility] 10-09-2022 12:17-0500 Body weight 143.79 kg Alicia Izaguirre MD Work Phone: [facility] 10-09-2022 12:17-0500 Diastolic blood pressure 88 mm[Hg] Alicia Izaguirre MD Work Phone: [facility] 10-09-2022 12:17-0500 Systolic blood pressure 133 mm[Hg] Alicia Izaguirre MD Work Phone: [facility] 09-26-2022 11:59-0400 Body height 198.12 cm [facility] Work Phone: [facility] 09-26-2022 11:59-0400 Body mass index (BMI) [Ratio] 36.6 kg/m2 [facility] Work Phone: [facility] 09-26-2022 11:59-0400 Body weight 143.78 kg [facility] Work Phone: [facility] 09-26-2022 11:26-0400 Body temperature 98.2 [degF] [facility] Work Phone: [facility] 09-26-2022 11:26-0400 Diastolic blood pressure 72 mm[Hg] [facility] Work Phone: [facility] 09-26-2022 11:26-0400 Heart rate 73 /min [facility] Work Phone: [facility] 09-26-2022 11:26-0400 Respiratory rate 20 /min [facility] Work Phone: [facility] 09-26-2022 11:26-0400 Systolic blood pressure 113 mm[Hg] [facility] Work Phone: [facility] 09-25-2022 04:08-0400 Heart rate 110 /min [facility] Work Phone: [facility] 09-25-2022 04:00-0400 Diastolic blood pressure 81 mm[Hg] [facility] Work Phone: [facility] 09-25-2022 04:00-0400 Respiratory rate 20 /min [facility] Work Phone: [facility] 09-25-2022 04:00-0400 SaO2% (BldA) [Mass fraction] 97 % [facility] Work Phone: [facility] 09-25-2022 04:00-0400 Systolic blood pressure 168 mm[Hg] [facility] Work Phone: [facility] 09-24-2022 18:35-0400 Body height 195.58 cm [facility] Work Phone: [facility] 09-24-2022 18:35-0400 Body temperature 98 [degF] [facility] Work Phone: [facility] 09-24-2022 18:35-0400 Body weight 127 kg [facility] Work Phone: [facility] 09-05-2022 23:00-0400 Diastolic blood pressure 60 mm[Hg] [facility] Work Phone: [facility] 09-05-2022 23:00-0400 Heart rate 101 /min [facility] Work Phone: [facility] 09-05-2022 23:00-0400 Respiratory rate 16 /min [facility] Work Phone: [facility] 09-05-2022 23:00-0400 SaO2% (BldA) [Mass fraction] 96 % [facility] Work Phone: [facility] 09-05-2022 23:00-0400 Systolic blood pressure 166 mm[Hg] [facility] Work Phone: [facility] 09-05-2022 12:40-0400 Body height 195.58 cm [facility] Work Phone: [facility] 09-05-2022 12:40-0400 Body temperature 98.5 [degF] [facility] Work Phone: [facility] 09-05-2022 12:40-0400 Body weight 127 kg [facility] Work Phone: [facility] 08-29-2022 10:10-0400 Body height 198.12 cm [facility] Work Phone: [facility] 08-29-2022 10:10-0400 Body mass index (BMI) [Ratio] 36.6 kg/m2 [facility] Work Phone: [facility] 08-29-2022 10:10-0400 Body weight 143.78 kg [facility] Work Phone: [facility] 08-29-2022 09:51-0400 Diastolic blood pressure 72 mm[Hg] [facility] Work Phone: [facility] 08-29-2022 09:51-0400 Heart rate 80 /min [facility] Work Phone: [facility] 08-29-2022 09:51-0400 Respiratory rate 18 /min [facility] Work Phone: [facility] 08-29-2022 09:51-0400 Systolic blood pressure 130 mm[Hg] [facility] Work Phone: [facility] 08-22-2022 10:02-0400 Body temperature 97.2 [degF] [facility] Work Phone: [facility] 08-11-2022 14:03-0400 Diastolic blood pressure 77 mm[Hg] [facility] Work Phone: [facility] 08-11-2022 14:03-0400 Heart rate 70 /min [facility] Work Phone: [facility] 08-11-2022 14:03-0400 Respiratory rate 18 /min [facility] Work Phone: [facility] 08-11-2022 14:03-0400 SaO2% (BldA) [Mass fraction] 97 % [facility] Work Phone: [facility] 08-11-2022 14:03-0400 Systolic blood pressure 113 mm[Hg] [facility] Work Phone: [facility] 08-11-2022 09:06-0400 Body height 195.58 cm [facility] Work Phone: [facility] 08-11-2022 09:06-0400 Body temperature 97.9 [degF] [facility] Work Phone: [facility] 08-11-2022 09:06-0400 Body weight 124.73 kg [facility] Work Phone: [facility] 07-30-2022 13:25-0400 Body height 198.12 cm [facility] Work Phone: [facility] 07-30-2022 13:25-0400 Body mass index (BMI) [Ratio] 36.6 kg/m2 [facility] Work Phone: [facility] 07-30-2022 13:25-0400 Body weight 143.78 kg [facility] Work Phone: [facility] 07-30-2022 13:17-0400 Body temperature 97.9 [degF] [facility] Work Phone: [facility] 07-30-2022 13:17-0400 Diastolic blood pressure 68 mm[Hg] [facility] Work Phone: [facility] 07-30-2022 13:17-0400 Heart rate 69 /min [facility] Work Phone: [facility] 07-30-2022 13:17-0400 Respiratory rate 18 /min [facility] Work Phone: [facility] 07-30-2022 13:17-0400 Systolic blood pressure 109 mm[Hg] [facility] Work Phone: [facility] 07-26-2022 10:58-0400 Body weight 143.79 kg Savana Barajas APRN.OCEANOGRAPHIC METEOROLOGIST Work Phone: [facility] 07-26-2022 10:58-0400 Diastolic blood pressure 90 mm[Hg] Savana Barajas APRN.OCEANOGRAPHIC METEOROLOGIST Work Phone: [facility] 07-26-2022 10:58-0400 Systolic blood pressure 144 mm[Hg] Savana Barajas APRN.[facility] Work Phone: [facility] 06-22-2022 13:01-0400 Body height 198.12 cm [facility] Work Phone: [facility] 06-22-2022 13:01-0400 Body weight 120.2 kg [facility] [employer] Work Phone: [facility] 06-22-2022 13:00-0400 Body temperature 98.5 [degF] Services [facility] Work Phone: [facility] 06-22-2022 13:00-0400 Diastolic blood pressure 57 mm[Hg] Services [facility] Work Phone: [facility] 06-22-2022 13:00-0400 Heart rate 74 /min Services [facility] Work Phone: [facility] 06-22-2022 13:00-0400 Respiratory rate 18 /min Services [facility] Work Phone: [facility] 06-22-2022 13:00-0400 SaO2% (BldA) [Mass fraction] 98 % Services [facility] Work Phone: [facility] 06-22-2022 13:00-0400 Systolic blood pressure 112 mm[Hg] Services [facility] Work Phone: [facility] 06-20-2022 11:14-0400 Body height 198.12 cm Services [facility] Work Phone: [facility] 06-20-2022 11:14-0400 Body mass index (BMI) [Ratio] 36.6 kg/m2 Services [facility] Work Phone: [facility] 06-20-2022 11:14-0400 Body weight 143.78 kg Services [facility] Work Phone: [facility] 06-20-2022 10:44-0400 Body temperature 97.5 [degF] Services [facility] Work Phone: [facility] 06-20-2022 10:44-0400 Diastolic blood pressure 61 mm[Hg] [facility] Work Phone: [facility] 06-20-2022 10:44-0400 Heart rate 57 /min Services [facility] Work Phone: [facility] 06-20-2022 10:44-0400 Respiratory rate 18 /min Services [facility] Work Phone: [facility] 06-20-2022 10:44-0400 Systolic blood pressure 99 mm[Hg] [facility] Work Phone: [facility] 06-19-2022 15:17-0400 Diastolic blood pressure 62 mm[Hg] [facility] Work Phone: [facility] 06-19-2022 15:17-0400 Systolic blood pressure 138 mm[Hg] [facility] Work Phone: [facility] 06-19-2022 13:33-0400 Heart rate 61 /min [facility] Work Phone: [facility] 06-19-2022 13:33-0400 Respiratory rate 18 /min Services [facility] Work Phone: [facility] 06-19-2022 13:33-0400 SaO2% (BldA) [Mass fraction] 96 % Services [facility] Work Phone: [facility] 06-19-2022 09:50-0400 Body height 195.58 cm Services [facility] Work Phone: [facility] 06-19-2022 09:50-0400 Body temperature 98.4 [degF] [facility] Work Phone: [facility] 06-19-2022 09:50-0400 Body weight 118.7 kg Services [facility] Work Phone: [facility] 06-15-2022 10:21-0400 Body height 195.58 cm Services [facility] Work Phone: [facility] 06-15-2022 10:21-0400 Body mass index (BMI) [Ratio] 30.7 kg/m2 Services [facility] Work Phone: [facility] 06-15-2022 10:21-0400 Body temperature 97.4 [degF] Services [facility] Work Phone: [facility] 06-15-2022 10:21-0400 Body weight 117.3 kg Services [facility] Work Phone: [facility] 06-15-2022 10:21-0400 Diastolic blood pressure 78 mm[Hg] Services [facility] Work Phone: [facility] 06-15-2022 10:21-0400 Heart rate 64 /min Services [facility] Work Phone: [facility] 06-15-2022 10:21-0400 Respiratory rate 18 /min Services [facility] Work Phone: [facility] 06-15-2022 10:21-0400 SaO2% (BldA) [Mass fraction] 99 % Services [facility] Work Phone: [facility] 06-15-2022 10:21-0400 Systolic blood pressure 125 mm[Hg] Services [facility] Work Phone: [facility] 06-09-2022 13:30-0400 Diastolic blood pressure 76 mm[Hg] Services [facility] Work Phone: [facility] 06-09-2022 13:30-0400 Heart rate 97 /min Services [facility] Work Phone: [facility] 06-09-2022 13:30-0400 Respiratory rate 18 /min Services [facility] Work Phone: [facility] 06-09-2022 13:30-0400 SaO2% (BldA) [Mass fraction] 96 % Services [facility] Work Phone: [facility] 06-09-2022 13:30-0400 Systolic blood pressure 134 mm[Hg] Services [facility] Work Phone: [facility] 06-09-2022 11:20-0400 Body height 198.12 cm Services [facility] Work Phone: [facility] 06-09-2022 11:20-0400 Body mass index (BMI) [Ratio] 36.6 kg/m2 Services [facility] Work Phone: [facility] 06-09-2022 11:20-0400 Body temperature 97.8 [degF] Services [facility] Work Phone: [facility] 06-09-2022 11:20-0400 Body weight 143.78 kg Services [facility] Work Phone: [facility] 06-01-2022 08:59-0400 Body height 195.58 cm Services [facility] Work Phone: [facility] 06-01-2022 08:59-0400 Body mass index (BMI) [Ratio] 37.5 kg/m2 Services [facility] Work Phone: [facility] 06-01-2022 08:59-0400 Body temperature 98 [degF] Services [facility] Work Phone: [facility] 06-01-2022 08:59-0400 Body weight 143.78 kg Services [facility] Work Phone: [facility] 06-01-2022 08:59-0400 Diastolic blood pressure 65 mm[Hg] Services [facility] Work Phone: [facility] 06-01-2022 08:59-0400 Heart rate 84 /min Services [facility] Work Phone: [facility] 06-01-2022 08:59-0400 Respiratory rate 20 /min Services [facility] Work Phone: [facility] 06-01-2022 08:59-0400 SaO2% (BldA) [Mass fraction] 94 % Services [facility] Work Phone: [facility] 06-01-2022 08:59-0400 Systolic blood pressure 148 mm[Hg] Services [facility] Work Phone: [facility] 05-31-2022 20:55-0400 Diastolic blood pressure 88 mm[Hg] Services [facility] Work Phone: [facility] 05-31-2022 20:55-0400 Heart rate 71 /min Services [facility] Work Phone: [facility] 05-31-2022 20:55-0400 Respiratory rate 22 /min Services [facility] Work Phone: [facility] 05-31-2022 20:55-0400 SaO2% (BldA) [Mass fraction] 99 % Services [facility] Work Phone: [facility] 05-31-2022 20:55-0400 Systolic blood pressure 160 mm[Hg] Services [facility] Work Phone: [facility] 05-31-2022 18:43-0400 Body temperature 98.2 [degF] Services [facility] Work Phone: [facility] 05-31-2022 18:40-0400 Body height 198.12 cm Services [facility] Work Phone: [facility] 05-31-2022 18:40-0400 Body mass index (BMI) [Ratio] 25 kg/m2 Services [facility] Work Phone: [facility] 05-31-2022 18:40-0400 Body weight 98.42 kg Services [facility] Work Phone: [facility] 05-20-2022 16:00-0400 Body temperature 97.7 [degF] Services [facility] Work Phone: [facility] 05-20-2022 16:00-0400 Diastolic blood pressure 55 mm[Hg] Services [facility] Work Phone: [facility] 05-20-2022 16:00-0400 Heart rate 62 /min Services [facility] Work Phone: [facility] 05-20-2022 16:00-0400 Respiratory rate 18 /min Services [facility] Work Phone: [facility] 05-20-2022 16:00-0400 SaO2% (BldA) [Mass fraction] 98 % Services [facility] Work Phone: [facility] 05-20-2022 16:00-0400 Systolic blood pressure 103 mm[Hg] Services [facility] Work Phone: [facility] 05-20-2022 12:00-0400 Body height 195.58 cm Services [facility] Work Phone: [facility] 05-19-2022 04:34-0400 Body mass index (BMI) [Ratio] 30.2 kg/m2 Services [facility] Work Phone: [facility] 05-19-2022 04:34-0400 Body weight 115.8 kg Services [facility] Work Phone: [facility] 10-24-2021 13:21-0500 Body height 198.12 cm No PCP None [facility] 250 DO Work Phone: 10-24-2021 13:21-0500 Diastolic blood pressure 86 mm[Hg] No PCP None [facility] 250 DO Work Phone: 10-24-2021 13:21-0500 Heart rate 94 /min No PCP None [facility] 250 DO Work Phone: 10-24-2021 13:21-0500 Systolic blood pressure 142 mm[Hg] No PCP None [facility] 250 DO Work Phone: Encounters Encounter Date Encounter Type Care Provider Facility Start: 12-31-2023 ambulatory Luiz Dawson ty:[facility] Srivastava Start: 12-15-2023 ambulatory Luiz Dawson ty:[facility] Srivast[facility] Start: 12-05-2023 End: 12-06-2023 Emergency department patient visit Solomon Palacio [facility] Start: 12-05-2023 End: 12-05-2023 Emergency department patient visit Services [facility] Work Phone: [facility] Work Phone: Start: 12-04-2023 ambulatory Luiz R RAMON Lillyi ty:CD:[id number] Start: 11-10-2023 End: 11-10-2023 ambulatory Conchis Tang Facility:[facility] Start: 11-10-2023 End: 11-10-2023 ambulatory Services [facility] Work Phone: [facility] Work Phone: Start: 11-10-2023 End: 11-10-2023 Departed Referred Services [facility] Work Phone: [facility] Start: 11-06-2023 End: 11-06-2023 Emergency department patient visit Low Castellano Facility:[facility] Start: 11-05-2023 End: 11-06-2023 Emergency department patient visit Services [facility] Work Phone: [facility]Emergency Room Work Phone: Start: 11-04-2023 End: 11-05-2023 ambulatory WILLARDSachin AGUIRRE Facility:[facility] Start: 11-04-2023 End: 11-04-2023 Patient encounter procedure Luiz R RAMON [facility] Start: 10-24-2023 End: 10-24-2023 ambulatory Conchis Beckwith Facility:[facility] Start: 10-24-2023 End: 10-24-2023 ambulatory Services [facility] Work Phone: [facility] Work Phone: Start: 10-24-2023 End: 10-24-2023 Patient encounter procedure Services [facility] Work Phone: [facility]-Electrodiagnostics Work Phone: Start: 10-17-2023 End: 10-17-2023 ambulatory JOSE PEREZ Facility:[facility] Start: 10-17-2023 End: 10-17-2023 Patient encounter procedure Jose Perez OD Work Phone: Ophthalmology Comment on above: Type 2 diabetes rosemary itus without retinopathy (HCC) (Primary Dx); Posterior vitreous detachment of left eye; Chorioretinal scar of left eye; History of enucleation of right eyeball; Anophthalmos of right eye; Pseudophakia, left eye; History of YAG laser capsulotomy of lens, Left Eye Start: 09-24-2023 End: 09-25-2023 ambulatory DIRK MYERS Facility:[facility] Start: 09-24-2023 End: 09-24-2023 Patient encounter procedure TAYLER MYERS [facility] Start: 09-09-2023 End: 09-10-2023 ambulatory WILLARD AGUIRRE Facility:[facility] Start: 08-15-2023 End: 08-16-2023 ambulatory Maegan Estes Facility:[facility] Start: 08-15-2023 End: 08-15-2023 [facility] Start: 07-31-[address] Sandeep Mendez Facility:[id number] Start: 07-30-2023 End: 07-31-2023 ambulatory Eryn Sands Facility:[facility] Start: 07-30-2023 End: 07-31-2023 Evaluation and management of inpatient Services [facility] Work Phone: [facility] [place] [facility] Work Phone: Start: 07-30-2023 End: 07-31-2023 observation encounter Services [facility] Work Phone: [facility] Work Phone: Start: 07-28-2023 End: 07-29-2023 ambulatory Maegan Estes Facility:[facility] Start: 07-28-2023 End: 07-28-2023 Patient encounter procedure Maegan Estes [facility] Start: 06-25-2023 End: 06-25-2023 ambulatory [facility]IR [facility] Facility:[facility] Start: 06-25-2023 End: 06-25-2023 Patient encounter procedure Leroy Mancera MD Work Phone: [facility] Comment on above: Spinal stenosis, lum bar region with neurogenic claudication (Primary Dx) Start: 06-17-2023 End: 06-17-2023 ambulatory Steven Bunting Facility:[facility] Start: 06-17-2023 End: 06-17-2023 ambulatory Services [facility] Work Phone: [facility] Work Phone: Start: 06-17-2023 End: 06-17-2023 Patient encounter procedure Services [facility] Work Phone: [facility] Work Phone: Start: 06-12-2023 End: 06-12-2023 ambulatory JOSE PEREZ Facility:[facility] Start: 06-12-2023 End: 06-12-2023 Patient encounter procedure Jose Perez OD Work Phone: Ophthalmology Comment on above: History of YAG laser capsulotomy of lens, Left Eye (Primary Dx); Pseudophakia, left eye; History of enucleation of right eyeball Start: 06-10-2023 Telephone encounter Leroy Mancera MD Work Phone: Neurology Comment on above: Called Back Start: 05-29-2023 End: 05-29-2023 ambulatory ANA LUISA BURNETT Facility:[facility] Start: 05-15-2023 End: 05-15-2023 ambulatory MD Tae Salazar Facility:[facility] Start: 05-14-2023 End: 05-14-2023 ambulatory [facility] Facility:[facility] Start: 05-09-2023 End: 05-09-2023 ambulatory BRENDA Quiana ARACELI Facility:[facility] Start: 05-01-2023 Telephone encounter Leroy Mancera MD Work Phone: Neurology Comment on above: Patient Update Start: 04-29-2023 Telephone encounter Leroy Mancera MD Work Phone: Neurology Comment on above: Patient Update; Lisbet ent Question Information Start: 03-25-2023 End: 03-26-2023 ambulatory Daniel JURADO [facility] Start: 03-24-2023 End: 03-27-2023 ambulatory JOYCE PERRYIMANI Facility:[facility] Start: 03-21-2023 Encounter for other preprocedural examination [facility] Start: 03-21-2023 End: 03-21-2023 Admission to establishment [facility] Work Phone: [facility] Start: 03-21-2023 End: 03-22-2023 ambulatory [facility] Work Phone: Pre Anesthesia Comment on above: Pre-op exam (Primary Dx); Gastroesophageal reflux disease without esophagitis; Type 2 diabetes mellitus without complication, without long-term current use of insulin (HCC); Other hyperlipidemia; Essential hypertension; Mild intermittent asthma without complication; Benign prostatic hyperplasia with urinary retention; BMI 37.0-37.9, adult; Headaches; Personal history of DVT (deep vein thrombosis) Start: 03-21-2023 End: 03-21-2023 Preprocedural examination done [facility] Work Phone: Pre Anesthesia Start: 03-19-2023 Telephone encounter Leroy Mancera MD Work Phone: Neurology Comment on above: Information Start: 03-17-2023 End: 03-17-2023 ambulatory BRENDA CHARLES Facility:[facility] Start: 03-17-2023 Telephone encounter Leroy Mancera MD Work Phone: Neurology Comment on above: [employer]; Patient Question Start: 03-14-2023 Telephone encounter Leroy Mancera MD Work Phone: Neurology Comment on above: Information Start: 02-25-2023 End: 02-26-2023 Emergency department patient visit Services [facility] Facility[facility] Start: 02-25-2023 End: 02-26-2023 Emergency department patient visit Services [facility] Work Phone: [facility] Work Phone: Start: 02-24-2023 ambulatory Daniel JURADO Facility: [place] Start: 02-14-2023 End: 02-14-2023 ambulatory Gold Rahmanon Facility:[facility] Start: 02-14-2023 End: 02-14-2023 ambulatory Services [facility] Work Phone: [facility] Work Phone: Start: 02-14-2023 End: 02-14-2023 Patient encounter procedure Services [facility] Work Phone: [facility]CT Scan [place] Work Phone: Start: 02-13-2023 End: 02-14-2023 ambulatory Services [facility] Facility:[facility] Start: 02-13-2023 End: 02-13-2023 ambulatory Services [facility] Work Phone: [facility] Work Phone: Start: 02-13-2023 End: 02-13-2023 Discharged Recurring Services [facility] Work Phone: [facility]Wound [facility] Work Phone: Start: 02-13-2023 Registered Recurring Services Family [facility] Work Phone: [facility] [place] Work Phone: Start: 02-12-2023 End: 02-13-2023 ambulatory Daniel JURADO Facility:[facility] Start: 01-13-2023 End: 01-14-2023 ambulatory Daniel JURADO Facility:[facility] Start: 01-13-2023 End: 01-13-2023 Patient encounter procedure Daniel JURADO [facility] Start: 01-01-2023 End: 01-01-2023 ambulatory Joselito Webb Facility[facility] Start: 01-01-2023 End: 01-01-2023 Admission to same day surgery center Services [facility] Work Phone: [facility] Work Phone: Start: 12-04-2022 End: 12-04-2022 Admission to same day surgery center Services [facility] Work Phone: [facility] Work Phone: Start: 12-04-2022 End: 12-04-2022 ambulatory Services [facility] Work Phone: [facility] Work Phone: Start: 11-27-2022 End: 11-27-2022 ambulatory CONCHIS TANG Facility:[facility] Start: 11-27-2022 End: 11-27-2022 Patient encounter procedure Leroy Mancera MD Work Phone: [facility] Comment on above: Spinal stenosis, lum bar region with neurogenic claudication (Primary Dx); Radiculopathy, lumbar region Start: 11-11-2022 End: 11-11-2022 ambulatory Services [facility] Work Phone: [facility] Work Phone: Start: 11-11-2022 End: 11-11-2022 Patient encounter procedure Services [facility] Work Phone: [facility] Start: 10-31-2022 End: 10-31-2022 ambulatory Services [facility] Work Phone: [facility] Work Phone: Start: 10-31-2022 End: 10-31-2022 Discharged Recurring Services [facility] Work Phone: [facility]ound [facility] Start: 10-17-2022 End: 10-17-2022 ambulatory Services [facility] Work Phone: [facility] Work Phone: Start: 10-17-2022 End: 10-17-2022 Discharged Recurring Services [facility] Work Phone: [facility] Start: 10-09-2022 End: 10-09-2022 Patient encounter procedure Alicia Izaguirre MD Work Phone: Pain Management Comment on above: Urinary incontinence , unspecified type (Primary Dx); Spinal stenosis, lumbar region without neurogenic claudication; History of spinal cord injury; Cauda equina syndrome (HCC) Start: 10-03-2022 End: 10-03-2022 ambulatory Services [facility] Work Phone: [facility] Work Phone: Start: 10-03-2022 End: 10-03-2022 Patient encounter procedure Services [facility] Work Phone: [facility] [place] Start: 09-26-2022 Registered Recurring Services [facility] Work Phone: [facility] Start: 09-24-2022 End: 09-25-2022 Emergency department patient visit Services [facility] Work Phone: [facility]Emergency Room Start: 09-23-2022 Telephone encounter Savana zavala APRN.CNP Work Phone: Pain Management Comment on above: Results Start: 09-18-2022 End: 09-18-2022 Subsequent hospital visit by physician Mri [facility] (Lg Bore/1.5t) Radiology MRI Comment on above: Spinal stenosis of l umbar region with neurogenic claudication [M48.062] Start: 09-10-2022 Telephone encounter Chuyita Santiago MD Work Phone: Pain Management Comment on above: Medication Problem Start: 09-05-2022 End: 09-06-2022 Emergency department patient visit Services [facility] Work Phone: [facility]Emergency Room Start: 09-02-2022 Telephone encounter Chuyita Santiago MD Work Phone: [address] [place] [address] Comment on above: Patient Update Start: 08-29-2022 Registered Recurring Services [facility] Work Phone: [facility] [place] Start: 08-28-2022 End: 08-28-2022 ambulatory CHUYITA HANCOCK Facility:[facility] Start: 08-11-2022 End: 08-11-2022 Emergency department patient visit Services [facility] Work Phone: [facility] Start: 07-30-2022 Registered Recurring Services [facility] Work Phone: [facility] [place] Start: 07-26-2022 End: 07-26-2022 Patient encounter procedure Savana Barajas APRN.OCEANOGRAPHIC METEOROLOGIST Work Phone: Pain Management Comment on above: Spinal stenosis of l umbar region with neurogenic claudication (Primary Dx); Status post lumbar laminectomy; Spondylolisthesis of lumbar region; Status post thoracic spinal fusion; Chronic pain syndrome; Lumbar spondylosis; Type 2 diabetes mellitus without complication, without long-term current use of insulin (HCC) Start: 07-22-2022 End: 07-22-2022 Patient encounter procedure Arden Madison OD Work Phone: Ophthalmology Comment on above: Vitreous floaters of left eye (Primary Dx) Start: 06-22-2022 End: 06-22-2022 Emergency department patient visit Services [facility] Work Phone: [facility] Start: 06-20-2022 Registered Recurring Services [facility] Work Phone: [facility] [place] Start: 06-19-2022 End: 06-19-2022 Emergency department patient visit Services [facility] Work Phone: [facility]Emergency [facility] Start: 06-18-2022 End: 06-18-2022 Patient encounter procedure Services [facility] Work Phone: [facility] [address] Start: 06-15-2022 End: 06-15-2022 Emergency department patient visit Services [facility] Work Phone: [facility]-Emergency Room Start: 06-14-2022 End: 06-14-2022 Departed Referred Services [facility] Work Phone: [facility] Start: 06-09-2022 End: 06-09-2022 Emergency department patient visit Services [facility] Work Phone: [facility]Emergency Room Start: 06-04-2022 End: 06-04-2022 Departed Referred Services [facility] Work Phone: [facility] Start: 06-01-2022 End: 06-01-2022 Emergency department patient visit Services [facility] Work Phone: [facility]Emergency Room Start: 05-31-2022 End: 05-31-2022 Emergency department patient visit Services [facility] Work Phone: [facility]-Emergency Room Start: 05-19-2022 End: 05-20-2022 Evaluation and management of inpatient Services [facility] Work Phone: [facility] [place] [facility] Start: 04-17-2022 End: 08-20-2022 Recurring Debbie MUNGUIA [facility] Start: 04-04-2022 End: 04-04-2022 Patient encounter procedure Debbie MUNGUIA [facility] Start: 03-15-2022 End: 03-15-2022 Patient encounter procedure Jose David Ana OD Work Phone: Ophthalmology Comment on above: Pseudophakia, left e ye (Primary Dx); History of enucleation of right eyeball; Prosthetic eye globe; Type 2 diabetes mellitus without retinopathy (HCC) Start: 03-05-2022 Telephone encounter Zeny tesfaye MD Work Phone: Ophthalmology Comment on above: Returning Patient's Call Start: 01-21-2022 End: 01-21-2022 ambulatory [facility] Facility:[facility] Start: 12-31-2021 End: 12-31-2021 ambulatory [facility] Facility:[facility] Start: 12-20-2021 End: 12-20-2021 Subsequent hospital visit by physician [facility] Work Phone: Radiology Comment on above: Other anophthalmos [ Q11.1] Start: 10-29-2021 Chart Update No PCP None [facility] [employer] 250 DO Work Phone: Start: 10-24-2021 Office consultation new/estab patient 80 min No PCP None [facility] [employer] 250 DO Work Phone: Start: 06-21-2021 Patient encounter status Services [facility] Work Phone: [facility] Patient encounter status No PCP None [facility] [employer] 250 DO Work Phone: Procedures Date Procedure Procedure Detail Performing Clinician Start: 12-05-2023 Plain chest X-ray Services [employer] Phone: Start: 12-05-2023 SARS-CoV-2[facility] & [facility]: Start: 11-05-2023 Plain X-ray of right elbow Services [facility] Work Phone: Start: 10-24-2023 Plain chest X-ray Services [facility] [employer] Phone: Start: 08-15-2023 Esophagogastroduodenoscopy Maegan allen Comment on above: esophagitis, hh, esophageal dilation Start: 07-30-2023 CT angiography of thorax Services [facility] [employer] Phone: Start: 07-30-2023 Plain chest X-ray Services [facility] Work Phone: Start: 03-21-2023 Antibody screen Pacc 1 Work Phone: Start: 03-21-2023 Antibody screen YASIR AGUIRRE Comment on above: Order Comment: Specimen Type: BLOOD SPEC IMEN Ordering Facility: [facility] Address: [address] [place], [place] [id number] Performed By: #### T [id number] #### [facility] CLIA [id number] [address]N [address] Start: 02-25-2023 X-ray of lumbar spine, two or three views Services [facility] Work Phone: Start: 02-14-2023 CT of left shoulder Services [facility] Work Phone: Start: 02-14-2023 Computed tomography of abdomen and pelvis with contrast Services [facility] [employer] Work Phone: Start: 01-01-2023 Esophagogastroduodenoscopy Services [facility] [employer] Work Phone: Start: 11-11-2022 SARS Antigen (LFIA) Services [facility] [employer] Work Phone: Start: 10-03-2022 CT of thorax with contrast Services [facility] [employer] Work Phone: Start: 09-25-2022 Urine culture Services [facility] Work Phone: Start: 09-18-2022 Mri spinal canal lumbar w/o contrast material Savana Barajas APRN.OCEANOGRAPHIC METEOROLOGIST Work Phone: Start: 09-05-2022 MR lumbar spine wo con Services [facility] [employer] Work Phone: Start: 08-29-2022 Aerobic microbial culture [facility] Work Phone: Start: 08-29-2022 Anaerobic microbial culture [facility] Work Phone: Start: 08-29-2022 Investigation of transfusion reaction Services [facility] Work Phone: Start: 08-11-2022 X-ray of right foot Services [facility] Work Phone: Start: 06-19-2022 CT cervical spine without contrast Services [facility] Work Phone: Start: 06-19-2022 CT of head without contrast [email or web address] Work Phone: Start: 06-18-2022 CT of head without contrast Services [facility] [employer] Work Phone: Start: 05-20-2022 Computed tomography of abdomen and pelvis with contrast Services [facility] Work Phone: Start: 05-18-2022 X-ray of right foot Services [facility] Work Phone: Start: 12-20-2021 Ct orbit sella/post fossa/ear w/contrast gustabol Tiffany Marshall MD Work Phone: Start: 12-20-2021 Creatinine [Mass/volume] in Serum or Plasma [facility] Provider Start: 12-15-2019 Adult depression screening assessment Zeny Brice MD Work Phone: Aerobic microbial culture Se [employer] Work Phone: Aerobic microbial culture [facility] [employer] Work Phone: Anaerobic microbial culture Services [employer] Phone: Blood culture for ba cteria, including anaerobic screen Services [employer] Phone: Blood culture for ba cteria, including anaerobic screen Services [employer] Phone: Blood culture for ba cteria, including anaerobic screen Services [employer] Phone: Colonoscopy Debbie MUNGUIA Elbow joint operations No PC P None Extraction of cataract Debbie MUNGUIA H/O: surgery History of enucleation of right eyeball Jose S Loudenslager OD Work Phone: H/O: surgery History of enucleation of right eyeball Jose S Loudenslager OD Work Phone: H/O: surgery History of enucleation of right eyeball Jose S Loudenslager OD Work Phone: Investigation of tra nsfusion reaction [facility] Work Phone: Operative procedure on hand No PCP None Procedure on back Debbie JONES RN SARS Antigen (LFIA) [facility] Work Phone: Surgical procedure on eye proper No PCP None Urine culture Services [facility] Work Phone: Plan of Treatment Date Care Activity Detail Author Start: 06-14-2031 Urine microalbumin profile DTaP,Tdap,Td Vaccine (3 - Td or Tdap) [facility] Start: 10-17-2024 Hepatitis C antibody, confirmatory test Dilated Retinal Exam [facility] Start: 05-29-2024 Hepatitis C antibody, confirmatory test DILATED RETINAL EXAM [facility] Start: 03-21-2024 BP CONTROLLED (<130/80) BP CONTROLLED (<130/80) [facility] Start: 03-17-2024 Hepatitis C antibody, confirmatory test DILATED RETINAL EXAM [facility] Start: 12-05-2023 Bacteria identified in Blood by Culture Blood Culture [facility] Start: 11-05-2023 Plain X-ray of right elbow XR elbow RT min 3V* [facility] Start: 11-05-2023 XR Elbow - right GE 3 Views [facility] Start: 08-23-2023 Hemoglobin A1c/Hemoglobin.total in Blood HBA1C [facility] Start: 08-04-2023 Lipid panel [facility] Start: 08-03-2023 Lipid panel [facility] Start: 08-02-2023 Lipid panel [facility] Start: 08-01-2023 Covid-19 Vaccine ( season) Covid-19 Vaccine ( season) [facility] Start: 08-01-2023 Influenza vaccination [facility] Start: 08-01-2023 Lipid panel [facility] Start: 07-31-2023 [facility] Start: 07-31-2023 Lipid panel [facility] Start: 07-31-2023 [facility] Start: 07-31-2023 [facility] Start: 07-30-2023 End: 07-31-2023 [facility] Start: 07-30-2023 Hospital admission [facility] Start: 07-30-2023 Referral to traffic technician [facility] Start: 07-30-2023 [facility] Start: 07-22-2023 Hepatitis C antibody, confirmatory test DILATED RETINAL EXAM [facility] Start: 06-20-2023 Hemoglobin A1c/Hemoglobin.total in Blood HBA1C [facility] Start: 01-01-2023 [facility] Start: 12-04-2022 Esophagogastroduodenoscopy DH EGD (Not Applicable) [facility] Start: 12-04-2022 [facility] Start: 12-01-2022 ADVANCE DIRECTIVE DISCUSSION ADVANCE DIRECTIVE DISCUSSION [facility] Start: 12-01-2022 DEPRESSION ASSESSMENT DEPRESSION ASSESSMENT [facility] Start: 11-16-2022 Hemoglobin A1c/Hemoglobin.total in Blood HBA1C [facility] Start: 11-13-2022 Hepatitis C antibody, confirmatory test DILATED RETINAL EXAM [facility] Start: 08-01-2022 Influenza vaccination [facility] Start: 05-20-2022 [facility] Work Phone: Start: 05-19-2022 Sleep disorder assessment [facility] Work Phone: Start: 05-19-2022 Referral to infectious diseases physician [facility] Work Phone: Start: 05-19-2022 Hospital admission [facility] Work Phone: Start: 05-19-2022 Referral to rnfa [facility] Work Phone: Start: 05-09-2022 Hemoglobin A1c/Hemoglobin.total in Blood HBA1C [facility] Start: 12-01-2021 ADVANCE DIRECTIVE DISCUSSION ADVANCE DIRECTIVE DISCUSSION [facility] Start: 12-01-2021 DEPRESSION ASSESSMENT DEPRESSION ASSESSMENT [facility] Start: 11-13-2021 [facility], Provider: Sandeep Mendez, Status: Pen, Time: 3:20 PM [facility] 250 DO Work Phone: Start: [facility]: Sandeep Mendez, Status: Pen, Time: 11:00 AM [facility], Provider: Sandeep Mendez, Status: Pen, Time: 11:00 AM [facility] 250 DO Work Phone: Start: 06-29-2021 COVID-19 VACCINE (2 - Booster for Kari series) COVID-19 VACCINE (2 - Booster for Kari series) [facility] Start: 12-15-2020 Adult depression screening assessment DEPRESSION SCREENING [facility] Start: 2013 PNEUMOVAX AGE 65 AND OVER WITH 5YR LOOKBACK (#1) PNEUMOVAX AGE 65 AND OVER WITH 5YR LOOKBACK (#1) [facility] Start: 2008 Hepatitis B Vaccine (1 of 3 - Risk 3-dose series) Hepatitis B Vaccine (1 of 3 - Risk 3-dose series) [facility] Start: 2008 RSV Vaccine (1 - 1-dose 60+ series) RSV Vaccine (1 - 1-dose 60+ series) [facility] Start: 1998 SHINGRIX VACCINE (1 of 2) SHINGRIX VACCINE (1 of 2) [facility] Start: 1993 COLOGUARD (FIT-DNA) COLOGUARD (FIT-DNA) [facility] Start: 1993 Colonoscopy COLONOSCOPY [facility] Start: 1993 COLORECTAL CANCER SCREENING COLORECTAL CANCER SCREENING [facility] Start: [address] COLONOGRAPHY [facility] Start: 1993 FECAL OCCULT BLOOD FECAL OCCULT BLOOD [facility] Start: 1993 SIGMOIDOSCOPY SIGMOIDOSCOPY [facility] Start: 1967 Urine microalbumin profile [facility] Start: 1966 ANNUAL PCP TEAM CHRONIC DISEASE VISIT ANNUAL PCP TEAM CHRONIC DISEASE VISIT [facility] Start: 1966 BP CONTROLLED (<130/80) BP CONTROLLED (<130/80) [facility] Start: 1966 Hepatitis B surface antibody level LDL CHOLESTEROL [facility] Start: 1966 HEPATITIS C SCREENING HEPATITIS C SCREENING [facility] Start: 1966 SPIROMETRY SPIROMETRY [facility] Start: 1958 3 comp foot exam completed DIABETIC FOOT EXAM [facility] Start: 1958 Hepatitis B screening URINE ALBUMIN:CREATININE RATIO [facility] Start: 1954 Pneumococcal Vaccine: 65+ (1 - PCV) Pneumococcal Vaccine: 65+ (1 - PCV) [facility] Start: 1954 PNEUMOCOCCAL: 65+ (1 - PCV) PNEUMOCOCCAL: 65+ (1 - PCV) [facility] Start: 1953 Hemoglobin A1c/Hemoglobin.total in Blood HBA1C [facility] Start: 1948 ABDOMINAL AORTIC ANEURYSM SCREENING ABDOMINAL AORTIC ANEURYSM SCREENING [facility] Bacteria identified in Blood by Culture [facility] Bacteria identified in Urine by Culture Urine Culture [facility] Blood culture for ba cteria, including anaerobic screen Blood Culture [facility] End: 03-21-2024 ECG COMPLETE ECG COMPLETE ECG Routine Pre-op exam Gastroesophageal reflux disease without esophagitis Type 2 diabetes mellitus without complication, without long-term current use of insulin (HCC) Other hyperlipidemia Essential hypertension Mild intermittent asthma without complication Benign prostatic hyperplasia with urinary retention BMI 37.0-37.9, adult Headaches Personal history of DVT (deep vein thrombosis) 1 Occurrences starting 03/21/2023 until 03/21/2024 [facility] Work Phone: Comment on above: 1 Occurrences starting 03/21/2023 until 03/21/2024 Patient Education [facility] Work Phone: Patient referral [facility] Work Phone: [facility] Immunizations Immunization Date Immunization Notes Care Provider Jude bhardwaj 03-11-2022 influenza virus vaccine, unspecified formulation tracx [facility] 06-14-2021 tetanus toxoid, reduced diphtheria toxoid, and acellular pertussis vaccine, adsorbed No PCP None [facility] 05-04-2021 SARS-CoV-2 (COVID-19 ) Ad26 vaccine, recombinant tracx [facility] 02-20-2021 Fluzone QIV High-Dos e 65YR+ [facility] Work Phone: [facility] 02-20-2021 influenza virus vaccine, unspecified formulation Daniel JURADO [facility] 03-07-2020 tetanus toxoid, reduced diphtheria toxoid, and acellular pertussis vaccine, adsorbed No PCP None [facility] NEGATED: Highlighted row has not occurred!01-10-2022 influenza virus vaccine, unspecified formulation Debbie MUNGUIA [facility] NEGATED: Highlighted row has not occurred!01-02-2022 SARS-CoV-2 (COVID-19) Ad26 vaccine, recombinant Debbie [facility] Payers Date Payer Category Payer Unknown [id number] 2022 Self-pay [id number] 2019 Medicaid MEDICAID [facility] MEDICAID [id number] 2019-Present [phone] [address] [place] [address] Medicaid [id number] 2019 Medicaid [id number] 2019 Medicaid MEDICAID [facility] MEDICAID [id number] 2019-Present [phone] [address] [place] [address] Medicaid [id number] 2019 Medicare MEDICARE MEDICAR E A AND B [id number] 2019-Present [phone] [address] [address] [place] [address] Medicare [id number] 2019 Medicare [id number] 2019 Medicare MEDICARE MEDICAR E A AND B [id number] 2019-Present [phone] [address] [address] [place] [address] Medicare [id number] 1948 Unknown [id number] [id number] 1948 Unknown [id number] 2.16.840.1.941046.3.579.2.356 1948 Unknown [id number] 2.16.840.1.049224.3.579.2.727 1948 Unknown [id number] 2.16.840.1.851019.3.579.2.727 1948 Unknown [id number] 2.16.840.1.337034.3.579.2.727 1948 Unknown [id number] 2.16.840.1.854136.3.579.2.727 1948 Unknown [id number] 2.16.840.1.575439.3.579.2.727 1948 Unknown [id number] 2.16.840.1.599827.3.579.2.727 1948 Unknown [id number] 2.16.840.1.303132.3.579.2.727 1948 Unknown [id number] 2.16.840.1.946376.3.579.2.727 1948 Unknown [id number] 2.16.840.1.749149.3.579.2.727 1948 Unknown [id number] 2.16.840.1.245334.3.579.2.727 1948 Unknown [id number] 2.16.840.1.062493.3.579.2.727 Medicaid [employer] [id number] Unknown Unknown [id number] 2.16.840.1.482837.3.579.2.531 Unknown [id number] 2.16.840.1.048632.3.579.2.531 Unknown [id number] 2.16.840.1.234568.3.579.2.531 Unknown [id number] 2.16.840.1.483245.3.579.2.531 Unknown [id number] 2.16.840.1.526012.3.579.2.531 Unknown [id number] 2.16.840.1.274770.3.579.2.531 Unknown [id number] 2.16.840.1.399277.3.579.2.531 Unknown [id number] 2.16.840.1.590305.3.579.2.531 Unknown [id number] 2.16.840.1.448637.3.579.2.531 Unknown [id number] 2.16.840.1.901854.3.579.2.531 Social History Date Type Detail Facility Start: 05-09-2023 End: 05-29-2023 Daily caffeine consumption Daily caffeine consumption [facility] Comment on above: 7 cups of coffee ronnell ly; Quit 35 years ago; Start: 12-15-2019 End: 12-06-2023 Tobacco smoking status UTIS Ex-smoker [facility] End: 12-23-1994 History of tobacco use Current smoker [facility] End: 12-23-1994 History of tobacco use Cigarette Smoker [facility] Start: 12-15-2019 End: 11-27-2022 Tobacco use and exposure Smokeless tobacco non-user [facility] Start: 02-11-2022 End: 10-17-2023 Alcohol intake Lifetime non-drinker (finding) [facility] Start: 01-09-2022 History SDOH Alcohol Frequency 1 [facility] Start: 1950 Sex Assigned At Not on file C [facility] Start: 11-20-2021 End: 02-04-2022 Exposure to SARS-CoV-2 (event) Not sure [facility] Start: 05-09-2023 End: 05-29-2023 Sex Assigned At Male [facility] Start: 06-22-2022 Tobacco smoking stat us NHIS Never smoked tobacco (finding) [facility] Start: 1950 Sex Assigned At Male F [facility] Start: 07-07-2022 End: 08-28-2022 Exposure to SARS-CoV-2 (event) Unable to assess [facility] Adult Depression Screening Assessment 5 [facility] Start: 11-05-2023 [facility] Medical Equipment Procedure Code Equipment Code Equipment Origin al Text Equipment Identifier Dates Lens Iol 0d +22 Natalia Uv Abs - [id number] Start: 02-04-2022 Comment on above: Description: -0.94 Goals Date Patient Goal Desired Activity /State Functional Status Date Assessment Result Facility 11-04-2023 Functional Status N/A [facility] 09-24-2023 Functional Status N/A [facility] 08-15-2023 Functional Status N/A [facility] 07-31-2023 Functional status Patient at Baseline [facility] Work Phone: 07-28-2023 Functional Status N/A [facility] 01-13-2023 Functional Status N/A [facility] 05-20-2022 Functional status Patient at Baseline [facility] Work Phone: Mental Status Date Assessment Result Facility 07-31-2023 Cognitive function Cognitive Sta tus Patient at Baseline [facility] Work Phone: 05-20-2022 Cognitive function Cognitive Sta tus Patient at Baseline [facility] Work Phone: Clinical Notes 12-20-2021 to 11-05-2023 Note Date & Type Note Facility 11-05-2023 Hospital Discharg e instructions Additional Instructions Take Motrin Tylenol as needed for your elbow pain. Rest and ice it. Follow-up with family doctor in 5 to 7 days for any persistent symptoms. [facility] Work Phone: 11-04-2023 Evaluation + Plan note Extrac natali from: Title:Urology Progress Note Author:Garrett NAVARRO MD Date:11/04/23 Impression and Plan Impression: #1. This gentleman has severe bladder outlet obstructive symptoms despite maximal medications and a severely damaged bladder with an obstructing prostate. He needs to get opened up. Plan: #1. We are getting him scheduled for a cystoscopy and transurethral resection of the prostate. We are going to forego urodynamics due to his severe bladder damage endoscopically and his significant clinical symptoms despite maximal medications. Future Appointments Appointment Date:12/08/2023 09:00:00 AM Scheduled Provider: Location:[facility] Appointment Type:URO Nurse Visit Appointment Date:12/15/2023 12:30:00 PM Scheduled Provider: Location:[facility] Appointment Type:Surgery FT Appointment Date:12/24/2023 09:45:00 AM Scheduled Provider:Luiz NAVARRO MD Location:[facility] Appointment Type:URO Office Visit [facility]12-05-2023 Note [id number] 11-04-2023 Hospital Discharge instructions Patient Education 11/04/2023 09:35:55 Transurethral Resection of the Prostate Transurethral Resection of the Prostate Transurethral resection of the prostate (TURP) is the removal, or resection, of part of the prostate tissue. This procedure is done to treat an enlarged prostate gland (benign prostatic hyperplasia). The goal of TURP is to remove enough prostate tissue to allow for a normal flow of urine. The procedure will allow you to empty your bladder more completely when you urinate so that you can urinate less often. In a transurethral resection, a thin telescope with a light, a camera, and an electric cutting edge(resectoscope) is passed through the urethra and into the prostate. The opening of the urethra is at the end of the penis. Tell a health care provider about: Any allergies you have. All medicines you are taking, including vitamins, herbs, eye drops, creams, and oimt-kgp-veidfhq medicines. Any problems you or family members have had with anesthetic medicines. Any bleeding problems you have. Any surgeries you have had. Any medical conditions you have. Any prostate infections you have had. What are the risks? Generally, this is a safe procedure. However, problems may occur, including: Infection. Bleeding. Allergic reactions to medicines. Blood in the urine (hematuria). Damage to nearby structures or organs. Other problems may occur, but they are rare. They include: Dry ejaculation, or having no semen come out during orgasm. Erectile dysfunction, or being unable to have or keep an erection. Scarring that leads to narrowing of the urethra. This narrowing may block the flow of urine. Inability to control when you urinate (incontinence). Deep vein thrombosis. This is a blood clot that can develop in your leg. TURP syndrome. This can happen when you lose too much sodium during or after the procedure. Some signs and symptoms of this condition include: ?Weakness. ?Headaches. ?Nausea or vomiting. ?Muscle cramping. What happens before the procedure? When to stop eating and drinking Follow instructions from your health care provider about what you may eat and drink before your procedure. These may include: 8 hours before your procedure ?Stop eating most foods. Do not eat meat, fried foods, or fatty foods. ?Eat only light foods, such as toast or crackers. ?All liquids are okay except energy drinks and alcohol. 6 hours before your procedure ?Stop eating. ?Drink only clear liquids, such as water, clear fruit juice, black coffee, plain tea, and sports drinks. ?Do not drink energy drinks or alcohol. 2 hours before your procedure ?Stop drinking all liquids. ?You may be allowed to take medicines with small sips of water. If you do not follow your health care provider's instructions, your procedure may be delayed or canceled. Medicines Ask your health care provider about: Changing or stopping your regular medicines. This is especially important if you are taking diabetes medicines or blood thinners. Taking medicines such as aspirin and ibuprofen. These medicines can thin your blood. Do not take these medicines unless your health care provider tells you to take them. Taking cpxr-qyb-xnkceyu medicines, vitamins, herbs, and supplements. Surgery safety Ask your health care provider what steps will be taken to help prevent infection. These steps may include: Removing hair at the surgery site. Washing skin with a germ-killing soap. Taking antibiotic medicine. General instructions Do not use any products that contain nicotine or tobacco for at least 4 weeks before the procedure.These products include cigarettes, chewing tobacco, and vaping devices, such as e-cigarettes. If you need help quitting, ask your health care provider. If you will be going home right after the procedure, plan to have a responsible adult: ?Take you home from the hospital or clinic. You will not be allowed to drive. ?Care for you for the time you are told. What happens during the procedure? An IV will be inserted into one of your veins. You will be given one or more of the following: ?A medicine to help you relax (sedative). ?A medicine to make you fall asleep (general anesthetic). ?A medicine that is injected into your spine to numb the area below and slightly above the injection site (spinal anesthetic). Your legs will be placed in foot rests (stirrups) so that your legs are apart and your knees are bent. The resectoscope will be passed through your urethra to your prostate. Parts of your prostate will be resected using the cutting edge of the resectoscope. Fluid will be passed to rinse out the cut tissues (irrigation). The resectoscope will be removed. A small, thin tube (catheter) will be passed through your urethra and into your bladder. The catheter will drain urine into a bag outside of your body. The procedure may vary among health care providers and hospitals. What happens after the procedure? Your blood pressure, heart rate, breathing rate, and blood oxygen level will be monitored until youleave the hospital or clinic. You will be given fluids through the IV. The IV will be removed when you start eating and drinking normally. You may have some pain. Pain medicine will be available to help you. You will have a catheter draining your urine. ?You may have blood in your urine. Your catheter may be kept in until your urine is clear. ?Your urinary drainage will be monitored. If necessary, your bladder may be rinsed out (irrigated) through your catheter. You will be encouraged to walk around as soon as possible. You may have to wear compression stockings. These stockings help to prevent blood clots and reduce swelling in your legs. If you were given a sedative during the procedure, it can affect you for several hours. Do not drive or operate machinery until your health care provider says that it is safe. Summary Transurethral resection of the prostate (TURP) is the removal (resection) of part of the prostate tissue. The goal of this procedure is to remove enough prostate tissue to allow for a normal flow of urine. Follow instructions from your health care provider about taking medicines and about eating and drinking before the procedure. This information is not intended to replace advice given to you by your health care provider. Make sure you discuss any questions you have with your health care provider. Document Revised: 08/13/2022 Document Reviewed: 08/13/2022 [employer] Patient Education 2022 [employer]. 11/04/2023 09:24:12 EU - Cystoscopy Discharge Instructions (CUSTOM) Cystoscopy Voiding after the procedure: there may be some pain, burning, urgency, frequency and blood tinged urine following the procedure. These symptoms usually resolve within 2-5 days. Drink the amount of fluid it takes to keep the urine pink to yellow or clear in color. Drinking enough water and fluids will help to ease any discomfort after your procedure. If you are having problems that seem out of the ordinary, please call. If unable to contact your physician and you feel it is an emergency, go to the nearest emergency room or call 911 Diet you may resume your normal diet. Activity you may resume your normal activities Call if you have a fever over 100 degrees. Follow Up Care 09/30/2023 12:27:09 With:Luiz NAVARRO Address: [facility] [address] [place] [address] Business (1) When: Unknown Comments:Office will call to schedule follow up [facility]12-05-2023 NoteCystoscopy ? Voiding after the procedure: there may be some pain, burning, urgency, frequency and blood tingedurine following the procedure. These symptoms usually resolve within 2-5 days. Drink the amount of fluid it takes to keep the urine pink to yellow or clear in color. Drinking enough water and fluids will help to ease any discomfort after your procedure. ? If you are having problems that seem out of the ordinary, please call. ? If unable to contact your physician and you feel it is an emergency, go to the nearest emergency room or call 911 ? Diet ? you may resume your normal diet. ? Activity ? you may resume your normal activities ? Call if you have a fever over 100 degrees. Urology Transurethral Resection of the Prostate Transurethral resection of the prostate (TURP) is the removal, or resection, of part of the prostate tissue. This procedure is done to treat an enlarged prostate gland (benign prostatic hyperplasia). The goal of TURP is to remove enough prostate tissue to allow for a normal flow of urine. The procedure will allow you to empty your bladder more completely when you urinate so that you can urinate less often. In a transurethral resection, a thin telescope with a light, a camera, and an electric cutting edge(resectoscope) is passed through the urethra and into the prostate. The opening of the urethra is at the end of the penis. Tell a health care provider about: ? Any allergies you have. ? All medicines you are taking, including vitamins, herbs, eye drops, creams, and uexg-azx-cklmzqi medicines. ? Any problems you or family members have had with anesthetic medicines. ? Any bleeding problems you have. ? Any surgeries you have had. ? Any medical conditions you have. ? Any prostate infections you have had. What are the risks? Generally, this is a safe procedure. However, problems may occur, including: ? Infection. ? Bleeding. ? Allergic reactions to medicines. ? Blood in the urine (hematuria). ? Damage to nearby structures or organs. Other problems may occur, but they are rare. They include: ? Dry ejaculation, or having no semen come out during orgasm. ? Erectile dysfunction, or being unable to have or keep an erection. ? Scarring that leads to narrowing of the urethra. This narrowing may block the flow of urine. ? Inability to control when you urinate (incontinence). ? Deep vein thrombosis. This is a blood clot that can develop in your leg. ? TURP syndrome. This can happen when you lose too much sodium during or after the procedure. Some signs and symptoms of this condition include: ? Weakness. ? Headaches. ? Nausea or vomiting. ? Muscle cramping. What happens before the procedure? When to stop eating and drinking Follow instructions from your health care provider about what you may eat and drink before your procedure. These may include: ? 8 hours before your procedure ? Stop eating most foods. Do not eat meat, fried foods, or fatty foods. ? Eat only light foods, such as toast or crackers. ? All liquids are okay except energy drinks and alcohol. ? 6 hours before your procedure ? Stop eating. ? Drink only clear liquids, such as water, clear fruit juice, black coffee, plain tea, and sports drinks. ? Do not drink energy drinks or alcohol. ? 2 hours before your procedure ? Stop drinking all liquids. ? You may be allowed to take medicines with small sips of water. If you do not follow your health care provider's instructions, your procedure may be delayed or canceled. Medicines Ask your health care provider about: ? Changing or stopping your regular medicines. This is especially important if you are taking diabetes medicines or blood thinners. ? Taking medicines such as aspirin and ibuprofen. These medicines can thin your blood. Do not take these medicines unless your health care provider tells you to take them. ? Taking cafk-ozr-dxtplhp medicines, vitamins, herbs, and supplements. Surgery safety Ask your health care provider what steps will be taken to help prevent infection. These steps may include: ? Removing hair at the surgery site. ? Washing skin with a germ-killing soap. ? Taking antibiotic medicine. General instructions ? Do not use any products that contain nicotine or tobacco for at least 4 weeks before the procedure. These products include cigarettes, chewing tobacco, and vaping devices, such as e-cigarettes. If you need help quitting, ask your health care provider. ? If you will be going home right after the procedure, plan to have a responsible adult: ? Take you home from the hospital or clinic. You will not be allowed to drive. ? Care for you for the time you are told. What happens during the procedure? ? An IV will be inserted into one of your veins. ? You will be given one or more of the following: ? A medicine to help you relax (sedative). ? A medicine to make you fall asleep (general anesthetic) (more content not included)...[facility]11-17-2023 NoteHNO ID: [id number] Author: Jose Perez OD Service: ? Author Type: HAT STEAMER Type: Progress Notes Filed: 10/17/2023 1:34 PM Note Text: ASSESSMENT/PLAN: 1. Type 2 diabetes mellitus without retinopathy (HCC) - ICD9: 250.00, ICD10: E11.9 (primary diagnosis) The importance of maintaining good glucose control in order to reduce the risks of vision loss from diabetes was discussed. Keep all appropriate follow-ups for diabetic care. The patient was educated regarding the importance of regular EYE examinations and was instructed to call the office immediately if vision changes are noticed. 2. Posterior vitreous detachment of left eye - ICD9: 379.21, ICD10: H43.812 Not acute Pt has new subjective floaters Negative Jay's No new breaks Monitor signs and/or symptoms and return to clinic if any escalation 3. 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 History of enucleation of right eyeball - ICD9: V45.78, ICD10: Z90.01 5. Anophthalmos of right eye - ICD9: 743.00, ICD10: Q11.1 S/p football injury when helmet broke and went into his eye (age 17) States they removed the eye but no implant Last proshethsis by [facility] Prosthetic fit pending with [employer] proctor Pt not wearing prosthetic today. Patched/Shielded Is mid-process on repair/replacement of his existing prosthetic that causes him trouble Socket is quiet and free of infection OK to d/c maxitrol ointment Rx on hand for ERYTHROMYCIN ointment to use daily after cleaning and re-inserting future Prosthetic 6. Pseudophakia, left eye - ICD9: V43.1, ICD10: Z96.1 7. History of YAG laser capsulotomy of lens, Left Eye - ICD9: V45.61, ICD10: Z98.49 Monitor Resommend spectacle wear for safety benefits I have confirmed and edited as necessary the relevant ophthalmic history, ROS, and the exam findings as obtained by others. I have seen and examined this patient. I also have reviewed and agree with the assessment and plan as stated above and agree with all of its relevant components. Jose Perez, OD October 17, 2023 1:20 [facility]11-17-2023 History of Present illness Narrative * Jose Perez S, OD - 10/17/2023 1:20 PM EST ASSESSMENT/PLAN: 1. Type 2 diabetes mellitus without retinopathy (HCC) - ICD9: 250.00, ICD10: E11.9 (primary diagnosis) The importance of maintaining good glucose control in order to reduce the risks of vision loss fromdiabetes was discussed. Keep all appropriate follow-ups for diabetic care. The patient was educatedregarding the importance of regular EYE examinations and was instructed to call the office immediately if vision changes are noticed. 2. Posterior vitreous detachment of left eye - ICD9: 379.21, ICD10: H43.812 Not acute Pt has new subjective floaters Negative Gonvick's No new breaks Monitor signs and/or symptoms and return to clinic if any escalation 3. 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 History of enucleation of right eyeball - ICD9: V45.78, ICD10: Z90.01 5. Anophthalmos of right eye - ICD9: 743.00, ICD10: Q11.1 S/p football injury when helmet broke and went into his eye (age 17) States they removed the eye but no implant Last proshethsis by [facility] Prosthetic fit pending with [employer] proctor Pt not wearing prosthetic today. Patched/Shielded Is mid-process on repair/replacement of his existing prosthetic that causes him trouble Socket is quiet and free of infection OK to d/c maxitrol ointment Rx on hand for ERYTHROMYCIN ointment to use daily after cleaning and re- inserting future Prosthetic 6. Pseudophakia, left eye - ICD9: V43.1, ICD10: Z96.1 7. History of YAG laser capsulotomy of lens, Left Eye - ICD9: V45.61, ICD10: Z98.49 Monitor Resommend spectacle wear for safety benefits I have confirmed and edited as necessary the relevant ophthalmic history, ROS, and the exam findings as obtained by others. I have seen and examined this patient. I also have reviewed and agree with the assessment and plan as stated above and agree with all of its relevant components. Jose Perez, OD October 17, 2023 1:20 PM [facility] Discharge instructions Patient Education 09/24/2023 15:21:26 Benign Prostatic Hyperplasia Benign Prostatic Hyperplasia Benign prostatic hyperplasia (BPH) is an enlarged prostate gland that is caused by the normal agingprocess. The prostate may get bigger as a man gets older. The condition is not caused by cancer. The prostate is a walnut-sized gland that is involved in the production of semen. It is located in front of the rectum and below the bladder. The bladder stores urine. The urethra carries stored urine ou t of the body. An enlarged prostate can press on the urethra. This can make it harder to pass urine. The buildup of urine in the bladder can cause infection. Back pressure and infection may progress to bladder damage and kidney (renal) failure. What are the causes? This condition is part of the normal aging process. However, not all men develop problems from thiscondition. If the prostate enlarges away from the urethra, urine flow will not be blocked. If it enlarges toward the urethra and compresses it, there will be problems passing urine. What increases the risk? This condition is more likely to develop in men older than 50 years. What are the signs or symptoms? Symptoms of this condition include: Getting up often during the night to urinate. Needing to urinate frequently during the day. Difficulty starting urine flow. Decrease in size and strength of your urine stream. Leaking (dribbling) after urinating. Inability to pass urine. This needs immediate treatment. Inability to completely empty your bladder. Pain when you pass urine. This is more common if there is also an infection. Urinary tract infection (UTI). How is this diagnosed? This condition is diagnosed based on your medical history, a physical exam, and your symptoms. Tests will also be done, such as: A post-void bladder scan. This measures any amount of urine that may remain in your bladder after you finish urinating. A digital rectal exam. In a rectal exam, your health care provider checks your prostate by putting a lubricated, gloved finger into your rectum to feel the back of your prostate gland. This exam detects the size of your gland and any abnormal lumps or growths. An exam of your urine (urinalysis). A prostate specific antigen (PSA) screening. This is a blood test used to screen for prostate cancer. An ultrasound. This test uses sound waves to electronically produce a picture of your prostate gland. Your health care provider may refer you to a specialist in kidney and prostate diseases (urologist). How is this treated? Once symptoms begin, your health care provider will monitor your condition (active surveillance or watchful waiting). Treatment for this condition will depend on the severity of your condition. Treatment may include: Observation and yearly exams. This may be the only treatment needed if your condition and symptoms are mild. Medicines to relieve your symptoms, including: ?Medicines to shrink the prostate. ?Medicines to relax the muscle of the prostate. Surgery in severe cases. Surgery may include: ?Prostatectomy. In this procedure, the prostate tissue is removed completely through an open incision or with a laparoscope or robotics. ?Transurethral resection of the prostate (TURP). In this procedure, a tool is inserted through the opening at the tip of the penis (urethra). It is used to cut away tissue of the inner core of the prostate. The pieces are removed through the same opening of the penis. This removes the blockage. ?Transurethral incision (TUIP). In this procedure, small cuts are made in the prostate. This lessens the prostate's pressure on the urethra. ?Transurethral microwave thermotherapy (TUMT). This procedure uses microwaves to create heat. The heat destroys and removes a small amount of prostate tissue. ?Transurethral needle ablation (TUNA). This procedure uses radio frequencies to destroy and remove a small amount of prostate tissue. ?Interstitial laser coagulation (ILC). This procedure uses a laser to destroy and remove a small amount of prostate tissue. ?Transurethral electrovaporization (TUVP). This procedure uses electrodes to destroy and remove a small amount of prostate tissue. ?Prostatic urethral lift. This procedure inserts an implant to push the lobes of the prostate away from the urethra. Follow these instructions at home: Take xblv-qpk-btugcyx and prescription medicines only as told by your health care provider. Monitor your symptoms for any changes. Contact your health care provider with any changes. Avoid drinking large amounts of liquid before going to bed or out in public. Avoid or reduce how much caffeine or alcohol you drink. Give yourself time when you urinate. Keep all follow-up visits. This is important. Contact a health care provider if: You have unexplained back pain. Your symptoms do not get better with treatment. You develop side effects from the medicine you are taking. Your urine becomes very dark or has a bad smell. Your lower abdomen becomes distended and you have trouble passing urine. Get help right away if: You have a fever or chills. You suddenly cannot urinate. You feel light-headed or very dizzy, or you faint. There are large amounts of blood or clots in your urine. Your urinary problems become hard to manage. You develop moderate to severe low back or flank pain. The flank is the side of your body between the ribs and the hip. These symptoms may be an emergency. Get help right away. Call 911. Do not wait to see if the symptoms will go away. Do not drive yourself to the hospital. Summary Benign prostatic hyperplasia (BPH) is an enlarged prostate that is caused by the normal aging process. It is not caused by cancer. An enlarged prostate can press on the urethra. This can make it hard to pass urine. This condition is more likely to develop in men older than 50 years. Get help right away if you suddenly cannot urinate. This information is not intended to replace advice given to you by your health care provider. Make sure you discuss any questions you have with your health care provider. Document Revised: 06/05/2022 Document Reviewed: 06/05/2022 [employer] Patient Education 2022 Sequent. Follow Up Care 07/09/2023 15:25:07 With:TAYLER MYERS PA-C, URL Address: [address] [place] [address]. [place] [address] [phone] When: Unknown [facility] 09-18-2023 Note [id number] 08-15-2023 Hospital Discharge instructions Patient Education 08/15/2023 14:33:30 Upper Endoscopy, Adult, Care After Upper Endoscopy, Adult, Care After This sheet gives you information about how to care for yourself after your procedure. Your health care provider may also give you more specific instructions. If you have problems or questions, contact your health care provider. What can I expect after the procedure? After the procedure, it is common to have: A sore throat. Mild stomach pain or discomfort. Bloating. Nausea. Follow these instructions at home: Follow instructions from your health care provider about what to eat or drink after your procedure. Return to your normal activities as told by your health care provider. Ask your health care provider what activities are safe for you. Take igew-kmk-adngzqr and prescription medicines only as told by your health care provider. If you were given a sedative during the procedure, it can affect you for several hours. Do not drive or operate machinery until your health care provider says that it is safe. Keep all follow-up visits as told by your health care provider. This is important. Contact a health care provider if you have: A sore throat that lasts longer than one day. Trouble swallowing. Get help right away if: You vomit blood or your vomit looks like coffee grounds. You have: ?A fever. ?Bloody, black, or tarry stools. ?A severe sore throat or you cannot swallow. ?Difficulty breathing. ?Severe pain in your chest or abdomen. Summary After the procedure, it is common to have a sore throat, mild stomach discomfort, bloating, and nausea. If you were given a sedative during the procedure, it can affect you for several hours. Do not drive or operate machinery until your health care provider says that it is safe. Follow instructions from your health care provider about what to eat or drink after your procedure. Return to your normal activities as told by your health care provider. This information is not intended to replace advice given to you by your health care provider. Make sure you discuss any questions you have with your health care provider. Document Revised: 09/22/2020 Document Reviewed: 04/19/2019 [employer] Patient Education 2022 [employer]. 08/15/2023 14:33:21 Esophagitis Esophagitis Esophagitis is inflammation of the esophagus. The esophagus is the tube that carries food from the mouth to the stomach. Esophagitis can cause soreness or pain in the esophagus. This condition can make it difficult and painful to swallow. What are the causes? Most causes of esophagitis are not serious. Common causes of this condition include: Gastroesophageal reflux disease (GERD). This is when stomach contents move back up into the esophagus (reflux). Repeated vomiting. An allergic reaction, especially caused by food allergies (eosinophilic esophagitis). Injury to the esophagus by swallowing large pills with or without water, or swallowing certain types of medicines. Swallowing harmful chemicals, such as household cleaning products. Drinking a lot of alcohol. An infection of the esophagus. This most often occurs in people who have a weakened immune system. Radiation or chemotherapy treatment for cancer. Certain diseases such as sarcoidosis, Crohn's disease, and scleroderma. What are the signs or symptoms? Symptoms of this condition include: Difficult or painful swallowing. Pain with swallowing acidic liquids, such as citrus juices. You may also have pain when you burp. Chest pain and difficulty breathing. Nausea and vomiting. Pain in the abdomen. Weight loss. Ulcers in the mouth and white patches in the mouth (candidiasis). Fever. Coughing up blood or vomiting blood. Stool that is black, tarry, or bright red. How is this diagnosed? This condition may be diagnosed based on your medical history and a physical exam. You may also have other tests, including: A test to examine your esophagus and stomach with a small flexible tube with a camera (endoscopy). A test that measures the acidity level in your esophagus. A test that measures how much pressure is on your esophagus. A barium swallow or modified barium swallow to show the shape, size, and functioning of your esophagus. Allergy tests. How is this treated? Treatment for this condition depends on the cause of your esophagitis. In some cases, steroids or other medicines may be given to help relieve your symptoms or to treat the underlying cause of your condition. You may have to make some lifestyle changes, such as: Avoiding alcohol. Quitting any products that contain nicotine or tobacco. These products include cigarettes, chewing tobacco, and vaping devices, such as e-cigarettes. If you need help quitting, ask your health care provider. Changing your diet. Exercising. Changing your sleep habits and your sleep environment. Follow these instructions at home: Medicines Take awrf-cvo-qqzxiwh and prescription medicines only as told by your health care provider. Do not take aspirin, ibuprofen, or other NSAIDs unless your health care provider told you to do so. If you have trouble taking pills: ?Use a pill splitter to decrease the size of the pill. This will decrease the chance of the pill getting stuck or injuring your esophagus. ?Drink water after you take a pill. Eating and drinking Avoid foods and drinks that seem to make your symptoms worse. Follow a diet as recommended by your health care provider. This may involve avoiding foods and drinks such as: ?Coffee and tea, with or without caffeine. ?Drinks that contain alcohol. ?Energy drinks and sports drinks. ?Carbonated drinks or sodas. ?Chocolate and cocoa. ?Peppermint and mint flavorings. ?Garlic and onions. ?Horseradish. ?Spicy and acidic foods, including peppers, chili powder, davis powder, vinegar, hot sauces, and barbecue sauce. ?Trail fruit juices and citrus fruits, such as oranges, nicolle, and limes. ?Tomato-based foods, such as red sauce, chili, salsa, and pizza with red sauce. ?Fried and fatty foods, such as donuts, georgian fries, potato chips, and high-fat dressings. ?High-fat meats, such as hot dogs and fatty cuts of red and white meats, such as rib eye steak, sausage, ham, and salgado. ?High-fat dairy items, such as whole milk, butter, and cream cheese. Lifestyle Eat small, frequent meals instead of large meals. Avoid drinking large amounts of liquid with your meals. Avoid eating meals during the 2 3 hours before bedtime. Avoid lying down right after you eat. Do not exercise right after you eat. Do not use any products that contain nicotine or tobacco. These products include cigarettes, chewing tobacco, and vaping devices, such as e-cigarettes. If you need help quitting, ask your health careprovider. General instructions Pay attention to any changes in your symptoms. Let your health care provider know about them. Wear loose-fitting clothing. Do not wear anything tight around your waist that causes pressure on your abdomen. Raise (elevate) the head of your bed about 6 inches (15 cm). You may need to use a wedge to do this. Try relaxation strategies such as yoga, deep breathing, or meditation to manage stress. If you needhelp reducing stress, ask your health care provider. If you are overweight, reduce your weight to an amount that is healthy for you. Ask your health care provider for guidance about a safe weight loss goal. Keep all follow-up visits. This is important. Contact a health care provider if: You have new symptoms. You have unexplained weight loss. You have difficulty swallowing, or it hurts to swallow. You have wheezing or a cough that does not go away. Your symptoms do not improve with treatment. You have frequent heartburn for more than two weeks. Get help right away if: You have sudden severe pain in your arms, neck, jaw, teeth, or back. You suddenly feel sweaty, dizzy, or light-headed. You have chest pain or shortness of breath. You vomit and the vomit is green, yellow, or black, or it looks like blood or coffee grounds. Your stool is red, bloody, or black. You have a fever. You cannot swallow, drink, or eat. These symptoms may represent a serious problem that is an emergency. Do not wait to see if the symptoms will go away. Get medical help right away. Call your local emergency services (911 in the [place] Do not drive yourself to the hospital. Summary Esophagitis is inflammation of the esophagus. Most causes of esophagitis are not serious. Follow your health care provider's instructions about eating and drinking. Contact a health care provider if you have new symptoms, have weight loss, or coughing that does not stop. Get help right away if you have severe pain in the arms, neck, jaw, teeth, or back, or if you have chest pain, shortness of breath, or fever. This information is not intended to replace advice given to you by your health care provider. Make sure you discuss any questions you have with your health care provider. Document Revised: 05/28/2021 Document Reviewed: 05/28/2021 [employer] Patient Education 2022 [employer]. 08/15/2023 14:33:20 Esophageal Dilatation Esophageal Dilatation Esophageal dilatation, also called esophageal dilation, is a procedure to widen or open a blocked or narrowed part of the esophagus. The esophagus is the part of the body that moves food and liquid from the mouth to the stomach. You may need this procedure if: You have a buildup of scar tissue in your esophagus that makes it difficult, painful, or impossibleto swallow. This can be caused by gastroesophageal reflux disease (GERD). You have cancer of the esophagus. There is a problem with how food moves through your esophagus. In some cases, you may need this procedure repeated at a later time to dilate the esophagus gradually. Tell a health care provider about: Any allergies you have. All medicines you are taking, including vitamins, herbs, eye drops, creams, and cwtx-wsx-qoaejis medicines. Any problems you or family members have had with anesthetic medicines. Any blood disorders you have. Any surgeries you have had. Any medical conditions you have. Any antibiotic medicines you are required to take before dental procedures. Whether you are or may be . What are the risks? Generally, this is a safe procedure. However, problems may occur, including: Bleeding due to a tear in the lining of the esophagus. A hole, or perforation, in the esophagus. What happens before the procedure? Ask your health care provider about: ?Changing or stopping your regular medicines. This is especially important if you are taking diabetes medicines or blood thinners. ?Taking medicines such as aspirin and ibuprofen. These medicines can thin your blood. Do not take these medicines unless your health care provider tells you to take them. ?Taking ltnw-jnn-xqytzdh medicines, vitamins, herbs, and supplements. Follow instructions from your health care provider about eating or drinking restrictions. Plan to have a responsible adult take you home from the hospital or clinic. Plan to have a responsible adult care for you for the time you are told after you leave the hospital or clinic. This is important. What happens during the procedure? You may be given a medicine to help you relax (sedative). A numbing medicine may be sprayed into the back of your throat, or you may gargle the medicine. Your health care provider may perform the dilatation using various surgical instruments, such as: ?Simple dilators. This instrument is carefully placed in the esophagus to stretch it. ?Guided wire bougies. This involves using an endoscope to insert a wire into the esophagus. A dilator is passed over this wire to enlarge the esophagus. Then the wire is removed. ?Balloon dilators. An endoscope with a small balloon is inserted into the esophagus. The balloon isinflated to stretch the esophagus and open it up. The procedure may vary among health care providers and hospitals. What can I expect after the procedure? Your blood pressure, heart rate, breathing rate, and blood oxygen level will be monitored until youleave the hospital or clinic. Your throat may feel slightly sore and numb. This will get better over time. You will not be allowed to eat or drink until your throat is no longer numb. When you are able to drink, urinate, and sit on the edge of the bed without nausea or dizziness, you may be able to return home. Follow these instructions at home: Take slse-rrs-wmvmyjt and prescription medicines only as told by your health care provider. If you were given a sedative during the procedure, it can affect you for several hours. Do not drive or operate machinery until your health care provider says that it is safe. Plan to have a responsible adult care for you for the time you are told. This is important. Follow instructions from your health care provider about any eating or drinking restrictions. Do not use any products that contain nicotine or tobacco, such as cigarettes, e- cigarettes, and chewing tobacco. If you need help quitting, ask your health care provider. Keep all follow-up visits. This is important. Contact a health care provider if: You have a fever. You have pain that is not relieved by medicine. Get help right away if: You have chest pain. You have trouble breathing. You have trouble swallowing. You vomit blood. You have black, tarry, or bloody stools. These symptoms may represent a serious problem that is an emergency. Do not wait to see if the symptoms will go away. Get medical help right away. Call your local emergency services (911 in the [place] Do not drive yourself to the hospital. Summary Esophageal dilatation, also called esophageal dilation, is a procedure to widen or open a blocked or narrowed part of the esophagus. Plan to have a responsible adult take you home from the hospital or clinic. For this procedure, a numbing medicine may be sprayed into the back of your throat, or you may gargle the medicine. Do not drive or operate machinery until your health care provider says that it is safe. This information is not intended to replace advice given to you by your health care provider. Make sure you discuss any questions you have with your health care provider. Document Revised: 04/04/2021 Document Reviewed: 04/04/2021 [employer] Patient Education 2022 [employer] 08/15/2023 14:33:16 Hiatal Hernia Hiatal Hernia A hiatal hernia occurs when part of the stomach slides above the muscle that separates the abdomen from the chest (diaphragm). A person can be born with a hiatal hernia (congenital), or it may develop over time. In almost all cases of hiatal hernia, only the top part of the stomach pushes through the diaphragm. Many people have a hiatal hernia with no symptoms. The larger the hernia, the more likely it is that you will have symptoms. In some cases, a hiatal hernia allows stomach acid to flow back into the tube that carries food from your mouth to your stomach (esophagus). This may cause heartburn symptoms. Severe heartburn symptoms may mean that you have developed a condition called gastroesophageal reflux disease (GERD). What are the causes? This condition is caused by a weakness in the opening (hiatus) where the esophagus passes through the diaphragm to attach to the upper part of the stomach. A person may be born with a weakness in thehiatus, or a weakness can develop over time. What increases the risk? This condition is more likely to develop in: Older people. Age is a major risk factor for a hiatal hernia, especially if you are over the age of50. women. People who are overweight. People who have frequent constipation. What are the signs or symptoms? Symptoms of this condition usually develop in the form of GERD symptoms. Symptoms include: Heartburn. Belching. Indigestion. Trouble swallowing. Coughing or wheezing. Sore throat. Hoarseness. Chest pain. Nausea and vomiting. How is this diagnosed? This condition may be diagnosed during testing for GERD. Tests that may be done include: X-rays of your stomach or chest. An upper gastrointestinal (GI) series. This is an X-ray exam of your GI tract that is taken after you swallow a chalky liquid that shows up clearly on the X-ray. Endoscopy. This is a procedure to look into your stomach using a thin, flexible tube that has a tiny camera and light on the end of it. How is this treated? This condition may be treated by: Dietary and lifestyle changes to help reduce GERD symptoms. Medicines. These may include: ?Sfwj-rwa-opuvmpm antacids. ?Medicines that make your stomach empty more quickly. ?Medicines that block the production of stomach acid (H2 blockers). ?Stronger medicines to reduce stomach acid (proton pump inhibitors). Surgery to repair the hernia, if other treatments are not helping. If you have no symptoms, you may not need treatment. Follow these instructions at home: Lifestyle and activity Do not use any products that contain nicotine or tobacco, such as cigarettes and e-cigarettes. If you need help quitting, ask your health care provider. Try to achieve and maintain a healthy body weight. Avoid putting pressure on your abdomen. Anything that puts pressure on your abdomen increases the amount of acid that may be pushed up into your esophagus. ?Avoid bending over, especially after eating. ?Raise the head of your bed by putting blocks under the legs. This keeps your head and esophagus higher than your stomach. ?Do not wear tight clothing around your chest or stomach. ?Try not to strain when having a bowel movement, when urinating, or when lifting heavy objects. Eating and drinking Avoid foods that can worsen GERD symptoms. These may include: ?Fatty foods, like fried foods. ?Trail fruits, like oranges or lemon. ?Other foods and drinks that contain acid, like orange juice or tomatoes. ?Spicy food. ?Chocolate. Eat frequent small meals instead of three large meals a day. This helps prevent your stomach from getting too full. ?Eat slowly. ?Do not lie down right after eating. ?Do not eat 1 2 hours before bed. Do not drink beverages with caffeine. These include cola, coffee, cocoa, and tea. Do not drink alcohol. General instructions Take zvjp-epy-hxmgreh and prescription medicines only as told by your health care provider. Keep all follow-up visits as told by your health care provider. This is important. Contact a health care provider if: Your symptoms are not controlled with medicines or lifestyle changes. You are having trouble swallowing. You have coughing or wheezing that will not go away. Get help right away if: Your pain is getting worse. Your pain spreads to your arms, neck, jaw, teeth, or back. You have shortness of breath. You sweat for no reason. You feel sick to your stomach (nauseous) or you vomit. You vomit blood. You have bright red blood in your stools. You have black, tarry stools. Summary A hiatal hernia occurs when part of the stomach slides above the muscle that separates the abdomen from the chest (diaphragm). A person may be born with a weakness in the hiatus, or a weakness can develop over time. Symptoms of hiatal hernia may include heartburn, trouble swallowing, or sore throat. Management of hiatal hernia includes eating frequent small meals instead of three large meals a day. Get help right away if you vomit blood, have bright red blood in your stools, or have black, tarry stools. This information is not intended to replace advice given to you by your health care provider. Make sure you discuss any questions you have with your health care provider. Document Revised: 10/01/2022 Document Reviewed: 10/18/2021 [employer] Patient Education 2022 [employer]. Follow Up Care 07/28/2023 11:24:48 With:Meera CHARLES, WING [employer], [facility] Address: [facility] [address], [address] [place] [phone]- [phone] When: Unknown Comments:office will call for follow up [facility]08-31-2023 Consult note Author W Maxi Mendez [facility] July 31, 2023 5:13pm Note Date/Time July 31, 2023 3: 50pm [facility] [address] [place] [address] Cardiology Consult Note Signed Patient: Trey Figueroa Sr MR#: [id number] : 1950 Acct:[id number] Age/Sex: 73 / M Adm Date: 3 Loc: Room: [address] [place] [address] Type: ADM INOo Attending Dr: Eryn Sands MD Copies to: Georgi Marshall DO, [facility] Eryn Sands MD W Maxi Mendez DO~ Cardiology HPI History of Present Illness Consult Date: 07/31/23 Reason for Consult: Chest pain HPI: The patient is a 73-year-old man seen in cardiology consultation at the request the hospitalist and in conjunction with [employer]. Marshall and patient who presents with a history of hypertension dyslipidemia insulin- dependent type 2 diabetes mellitus and gastroesophageal reflux disease who presented to the ED complaining of intermittent chest pain over the last 4 to 6 weeks. Patient reports that he has been having intermittent chest pain that he describes as sharp occurring in the mid to left chest. He reports that this hasbeen getting worse up until yesterday when he had a serious bout of this that radiated down to his left arm as well. He reports sob with these episodes. Patient reports that over the past several weeks while this has been going on the episodes are not associated with anything in specific including exertion as he has had them while sitting and laying down as well. Patient reports that yesterday's episode happened when he was picking up a chair. He denies any history of stroke or IA in the past. He does have documented first-degree AV block which he is aware of. Patient is a former smoker. Patient reports that he thinks his last A1c was 7.4% Patient reports some abdominal pain, n/v/d, numbness, tingling, lightheadedness,blurry vision. Patient denies any other acute complaints or concerns at this time. Patient's GAGE risk score is 2?3 (not truly cardiac discomfort therefore score of 2) Left heart catheterization performed by myself in 2020 was noted for completely normal coronary arteries and ventricular function. There is no evidence of ACS at this time, recommend continue primary preventive therapies. Cardiology will sign off Review of Systems Review of Systems All other systems reviewed & are negative unless noted below or in HPI Review of systems: A 10-point review of systems was performed and was negative unless otherwise noted in HPI. Constitutional Constitutional: Reports as per HPI Cardiovascular Cardiovascular: Reports chest pain at rest (Sharp, stabbing, right and left- sided) Gastrointestinal Gastrointestinal: Reports system reviewed and no additional complaints, except as documented Musculoskeletal Musculoskeletal: Reports as per HPI (Neuromuscular weakness) and Reports abnormal gait [facility] Medical History Acid reflux Arrhythmia Asthma Blood clot of artery under arm Colon polyp Crush injury to thumb bone grafting done Diabetes High blood cholesterol Hypertension Neuropathy Pain in right foot Paralysis [id number] Right foot ulcer Shingles Surgical History H/O elbow surgery lt H/O eye surgery rt H/O hand surgery lt Previous back surgery x 3 Family History (Updated 07/30/23 @ 23:12 by Viry Malcolm LPN) Mother No problems noted. Father Diabetes Social History Smoking Status: Former smoker Tobacco Type: cigarettes Substance Use Type: None Substance Abuse Comment: Quit alcohol and tobacco 37 years ago Social History Comments: nephew Meds Medications and Allergies Allergies No Known Allergies Allergy (Verified 07/30/23 23:13) Home Medications amlodipine 10 mg tablet (Norvasc) 10 mg PO DAILY 11/15/19 [History Confirmed 07/30/23] hydroxyzine pamoate 50 mg capsule (Vistaril) 50 mg PO TID PRN HIVES 11/15/19 [History Confirmed 07/30/23] aspirin 81 mg chewable tablet 81 mg PO DAILY 12/22/19 [History Confirmed 07/30/23] dicyclomine 20 mg tablet 20 mg PO TID 12/22/19 [History Confirmed 07/30/23] hydrochlorothiazide 25 mg tablet 25 mg PO DAILY 12/22/19 [History Confirmed 07/30/23] losartan 25 mg tablet 25 mg PO DAILY 12/22/19 [History Confirmed 07/30/23] terazosin 5 mg capsule 10 mg PO TID 12/22/19 [History Confirmed 07/31/23] albuterol sulfate 90 mcg/actuation aerosol inhaler 1 puff inhalation Q4H PRN Wheezing 02/19/21 [History Confirmed 07/30/23] amitriptyline 150 mg tablet 150 mg PO QHS 02/19/21 [History Confirmed 07/31/23] ammonium lactate 12 % lotion 1 applic topical BID 02/19/21 [History Confirmed 07/30/23] docusate sodium 100 mg capsule (Colace) 100 mg PO DAILY 02/19/21 [History Confirmed 07/30/23] fluticasone propionate 110 mcg/actuation HFA aerosol inhaler 1 puff inhalation Q12H 02/19/21 [History Confirmed 07/30/23] insulin glargine 100 unit/mL subcutaneous solution (Lantus U-100 Insulin) 45 unit subcut QHS 02/19/21 [History Confirmed 07/30/23] insulin lispro 100 unit/mL subcutaneous solution (Humalog U-100 Insulin) 11 unitsubcut ACHS 02/19/21 [History Confirmed 07/30/23] metoprolol tartrate 100 mg tablet 125 mg PO DAILY 02/19/21 [History Confirmed 07/31/23] nitroglycerin 0.4 mg sublingual tablet 0.4 mg sublingual Q5-15MIN PRN Chest Pain02/19/21 [History Confirmed 07/30/23] atorvastatin 40 mg tablet 40 mg PO DAILY #30 tabs 11/11/21 [Rx Confirmed 07/30/23] miconazole nitrate 2 % topical cream 1 applic topical BID 5 days #30 grams 06/09/22 [Rx Confirmed 07/30/23] donepezil 10 mg tablet 10 mg PO DAILY 08/11/22 [History Confirmed 07/30/23] tramadol 50 mg tablet 50 mg PO Q8H PRN pain 3 days #9 tabs 09/05/22 [Rx Confirmed 07/30/23] pantoprazole 40 mg tablet,delayed release 40 mg PO BID #60 tabs 01/01/23 [Rx Confirmed 07/30/23] ipratropium bromide 21 mcg (0.03 %) nasal spray 21 mcg intranasal TID 07/30/23 [History Confirmed 07/31/23] lisinopril 40 mg tablet 40 mg PO DAILY 07/30/23 [History Confirmed 07/30/23] pravastatin 40 mg tablet 40 mg PO DAILY 07/30/23 [History Confirmed 07/30/23] cyclobenzaprine 10 mg tablet 10 mg PO DAILY PRN Chronic pain 07/31/23 [History Confirmed 07/31/23] erythromycin 5 mg/gram (0.5 %) eye ointment 1 applic Eye-Right BID 07/31/23 [History Confirmed 07/31/23] finasteride 5 mg tablet 5 mg PO DAILY 07/31/23 [History Confirmed 07/31/23] Exam Physical Exam Vital Signs: Temp Pulse Resp BP Pulse Ox O2 Del Method 98.2 F 87 18 125/61 97 Room Air 07/31/23 08:56 07/31/23 08:56 07/31/23 08:56 07/31/23 08:56 07/31/23 08:56 07/31/23 09:05 Narrative: General -awake, alert, oriented ?3, not in acute distress, lying in upright position Eyes -patient does have an eye patch over his right eye from a recent cataract surgery, left eye: Clear sclera and conjunctiva, extraocular eye movements grossly intact, PERRLA Cardiovascular -bradycardic rate and regular rhythm with no murmurs, rubs or gallops Pulmonary - CTA b/l without RRW Gastrointestinal - abdomen is soft, nondistended, nontender, normoactive bowel sounds, there is no guarding, rebound or rigidity Upper Extremities - no edema, clubbing or cyanosis Lower Extremities -ulcer present on right lower extremity, wrapped with dressings and not unwrapped during this visit Neurological -no focal neurological deficit noted, CN II-XII grossly intact Musculoskeletal - 2/5 muscle strength in lower extremities, 4/5 muscle strength in upper extremity Results Labs 07/30/23 16:48 07/30/23 16:48 Lab results: Cardiac Enzymes 07/30/23 07/30/23 07/30/23 Range/Units 16:48 16:48 16:48 AST 25 (13-39) U/L Total Creatine Kinase 215 (30-223) U/L B-Natriuretic Peptide 39.0 (5-100) pg/mL 07/31/23 Range/Units 01:22 AST (13-39) U/L Total Creatine Kinase (30-223) U/L B-Natriuretic Peptide 46.0 (5-100) pg/mL Lipids 07/31/23 Range/Units 03:27 Triglycerides 168 H (0-149) mg/dL Cholesterol 142 (140-200) mg/dL HDL Cholesterol 40 (23-92) mg/dL Cholesterol/HDL Ratio 3.6 (<5.0) CBC 07/30/23 Range/Units 16:48 RBC 4.34 (3.90-5.60) X10E6/uL Hgb 12.5 L (13.0-17.0) g/dL Hct 37.4 L (38.8-50.0) % Plt Count 228 (150-450) x10E3/uL Neut # (Auto) 4.9 (1.8-7.7) x10E3/uL Lymph # (Auto) 1.6 (1.00-4.8) x10E3/uL Hopkins # (Auto) 0.6 (0.0-0.8) x10E3/uL Eos # (Auto) 0.2 (0.0-0.45) x10E3/uL Baso # (Auto) 0.1 (0.0-0.2) x10E3/uL Comprehensive Metabolic Panel 07/30/23 Range/Units 16:48 Sodium 135 L (136-145) mmol/L Potassium 4.4 (3.5-5.1) mmol/L Chloride 103 (98-107) mmol/L Carbon Dioxide 27.1 (21.0-31.0) mmol/L BUN 17 (7-25) mg/dL Creatinine 1.49 H (0.70-1.30) mg/dL Glucose 224 H (70-100) mg/dL Calcium 9.2 (8.6-10.3) mg/dL Direct Bilirubin 0.00 L (0.03-0.18) mg/dL Indirect Bilirubin 0.4 mg/dL AST 25 (13-39) U/L ALT 28 (7-52) U/L Alkaline Phosphatase 103 (34-104) U/L Total Protein 6.9 (6.4-8.9) gm/dL Albumin 3.7 (3.5-5.7) gm/dL Intake and Output 07/30/23 07/31/23 07/31/23 23:59 07:59 15:59 Intake Total 350 / 350 Output Total 400 / 400 425 / 1325 900 / 1325 Balance -400 / -400 -425 / -975 -550 / -975 Intake: Oral 350 / 350 Output: Urine 400 / 400 425 / 1325 900 / 1325 Other: # Voids 300 Weight 127.8 kg 129.3 kg Date of Last Bowel Movement 07/29/23 07/29/23 Patient Weight 07/31/23 23:59 Weight 129.3 kg Lab 07/30/23 16:48 PT 11.8 INR 1.0 APTT 26.3 A&P - Cardiology (1) Chest pain: Assessment/Problem Details: Troponins negative EKG showed sinus rhythm with first-degree AV block, nonacute EKG overall Echo in 10/2021: EF 55%, mild LVH and diastolic dysfunction with some septal hypokinesis Patient does have multiple risk factors for CAD including DM 2, HTN, HLD, smoking history Patient is not currently having any chest pain Plan: GAGE score of 3 Pt had negative heart cath on 10/29/21. Negative lexiscan on 09/14/21. Given above do not believe patient's chest pain is cardiac in nature and will sign off at this time to medical team for further management. Code(s): R07.9 - Chest pain, unspecified (2) Hypertension: Assessment/Problem Details: BP has been fairly well controlled during this visit Plan: Continue current med regimen Code(s): I10 - Essential (primary) hypertension (3) Controlled type 2 diabetes mellitus with diabetic polyneuropathy, with long- term current use of insulin: Plan: continue med management per medical team Code(s): E11.42 - Type 2 diabetes mellitus with diabetic polyneuropathy; Z79.4 - group home (current) use of insulin (4) Chronic kidney disease, stage III (moderate): Code(s): N18.30 - Chronic kidney disease, stage 3 unspecified Documented By: Georgi Marshall DO, RES 07/31/23 1 540 Signed By: <Electronically signed by DO RUTH Marshall> 07/31/23 1658 <Electronically signed by Ellen Mendez DO> 07/31/23 17[address] [facility] Work Phone: 1(257) 909-976508-31-2023 Progress note Author Eryn Sands [facility] July 31, 2023 3:32pm Note Date/Time July 31, 2023 12 :01pm [facility] [address] [place] [address] Hospitalist Progress Note Signed with Margoenda Patient: Trey Figueroa MR#: [id number] : 1950 Acct:[id number] Age/Sex: 73 / M Adm Date: 3 Loc: Room: [address] [place] [address] Type: ADM INOo Attending Dr: Eryn Sands MD Copies to: ~ ADDENDUM1 Patient was personally seen by me on the day of encounter, reviewed his history and performed liang elements of exam and formulated the plan of care and confirmedthe resident/interns note below. Addendum Documented By: Eryn Sands MD 07/31/231531 Addendum Signed By: <Electronically signed by Eryn Sands MD> 07/31/23 153 Date of Service: 07/31/2023 Subjective Subjective Narrative: I personally saw and spoke with Mr. Trey Figueroa bedside this morning who is alert orientedx3, finishing up breakfast and in no acute distress; comfortable/pleasant. At the time of our encounter Mr. Figueroa stated his chestpain was controlled however expressed concern regarding multiple doses of NTG for symptom relief. He has had complained of chest pain over the last month however was recently exacerbated by lifting a heavy chair resulting in sharp shooting pain down his left arm unlike ever before and subsequently his ED visit. He has a history of GERD, hypertension, dyslipidemia and insulin-dependent type 2 diabetes mellitus. Mr. Figueroa was previously seen by ED in December 2021 for hypoglycemia; January 2022 for slip and fall on icy pavement; May 2022 pedal OM; May 2022 for laceration repair No history of prior visits for chest pain or cardiac work-up. 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, following simple command Musculoskeletal: No joint swelling or limitation of movement Psychiatric: Cooperative, normal mood and affect Objective Lab Results 07/30/23 16:48 07/30/23 16:48 Meds Allergies and Active Meds Allergies No Known Allergies Allergy (Verified 07/30/23 23:13) Active Meds: Active Medications Generic Name Dose Route Start Last Admin Trade Name Freq PRN Reason Stop Dose Admin Acetaminophen 1,000 mg 07/30/23 21:01 Acetaminophen 500 Mg Tablet PO 07/29/24 21:00 Q6H PRN Mild Pain Al Hydrox/Mg Hydrox/Simethicone 30 ml 07/30/23 21:01 Mag Hydrox/Al Hydrox/Simeth 30 Ml Udc PO 07/29/24 21:00 Q4H PRN Epigastric distress (Non-Card) Albuterol 1 puff 07/30/23 21:06 Albuterol Hfa 60 Puff/8 Gram Inhaler INHALATION 07/29/24 21:05 Q4H PRN Wheezing Amitriptyline HCl 150 mg 07/31/23 02:15 07/31/23 02:22 Amitriptyline 50 Mg Tablet PO 07/30/24 02:14 150 mg QHS [facility] Administration Amlodipine Besylate 10 mg 07/31/23 09:00 07/31/23 09:04 Amlodipine 10 Mg Tablet PO 07/30/24 08:59 10 mg DAILY GUAD[facility]UPE Administration Dicyclomine HCl 20 mg 07/31/23 02:15 07/31/23 09:04 Dicyclomine 20 Mg Tablet PO 07/30/24 02:14 20 mg TID GUADALUPE Administration Docusate Sodium 100 mg 07/30/23 21:01 Docusate 100 Mg Capsule PO 07/29/24 21:00 QHS PRN Constipation Docusate Sodium 100 mg 07/31/23 09:00 07/31/23 09:06 Docusate 100 Mg Capsule PO 07/30/24 08:59 100 mg DAILY GUADALUPE Administration Donepezil HCl 10 mg 07/31/23 09:00 07/31/23 09:04 Donepezil 10 Mg Tablet PO 07/30/24 08:59 10 mg DAILY [facility] Administration Enoxaparin Sodium 40 mg 07/31/23 10:00 Enoxaparin 40 Mg/0.4 Ml Syringe SUBCUT 07/30/24 09:59 DAILY@10 [facility] Finasteride 5 mg 07/31/23 11:00 Finasteride 5 Mg Tablet PO 07/30/24 10:59 DAILY [facility] Fluticasone Propionate 1 puff 07/31/23 09:00 07/31/23 09:27 Fluticasone Propionate 110 120 Puff/12 Gm Inhaler INHALATION 07/30/24 08:59 1 puff BID [facility] Administration Insulin Aspart 11 units 07/31/23 07:30 07/31/23 09:05 Insulin Aspart 300 Units/3 Ml Insuln.Pen SUBCUT 07/30/24 07:29 11 units ACHS [facility] Administration Insulin Glargine 45 units 07/31/23 22:00 Insulin Glargine 300 Units/3 Ml Insuln.Pen SUBCUT 07/30/24 21:59 QHS [facility] Metoprolol Tartrate 125 mg 07/31/23 09:00 Metoprolol Tartrate 50 Mg Tablet PO 07/30/24 08:59 DAILY [facility] Morphine Sulfate 4 mg 07/30/23 21:01 Morphine Sulfate 4 Mg/Ml Cartridge IV-PUSH Q20M PRN Chest Pain Nitroglycerin 0.4 mg 07/30/23 16:23 07/31/23 02:22 Nitroglycerin 0.4 Mg Tab.Subl SUBLINGUAL 07/29/24 16:22 0.4 mg Q5M PRN Administration Chest Pain Ondansetron HCl 4 mg 07/30/23 21:01 Ondansetron 4 Mg/2 Ml Vial IV-PUSH 07/29/24 21:00 Q6H PRN Nausea And Vomiting Pantoprazole Sodium 40 mg 07/31/23 09:00 07/31/23 09:04 Pantoprazole 40 Mg Tablet.Dr PO 07/30/24 08:59 40 mg BID [facility] Administration Pravastatin Sodium 40 mg 07/31/23 09:00 07/31/23 09:04 Pravastatin 40 Mg Tablet PO 07/30/24 08:59 40 mg DAILY [facility] Administration Sodium Chloride 0 ml 07/30/23 18:08 07/30/23 18:08 Sodium Chloride 0.9 % 10 Ml Syringe IV-PUSH 07/29/24 18:07 10 ml PRN PRN Administration Flush Sodium Chloride 0 ml 07/30/23 21:01 Sodium Chloride 0.9 % 10 Ml Syringe IV-PUSH 07/29/24 21:00 PRN PRN Flush Tramadol HCl 50 mg 07/30/23 21:01 Tramadol 50 Mg Tablet PO 01/26/24 21:00 Q6H PRN Moderate Pain Triamcinolone Acetonide 1 applic 07/30/23 21:01 Triamcinolone 0.1% Cream 15 Gm Tube TOPICAL 07/29/24 21:00 QID PRN Irritation A&P - Hospitalist Assessment/Plan (1) Chest pain: (2) Chronic kidney disease, stage III (moderate): Plan: serum creatinine mildly elevated compared to baseline (1.27->1.49) Plan Per HPI this is first visit for chest pain. Heart score is 5 indicative of a 12to 16% risk of major adverse cardiac event. Continue to monitor on telemetry; pending cardio consult Amlodipine 10 mg p.o. daily for hypertension serial cardiac enzymes/ECGs sublingual NTG, morphine PRN continue ASA, home beta moises, statin Patient is advised to report recurrence of chest pain to staff immediately Continue to hold ACEI, ARB and HCTZ We will continue home medications DM2 home insulin regimen, accucheck ac/hs, SSI, hypoglycemia protocol, check hgb a1c level VTE prophylaxis- Documented By: Darci Fajardo MD, RES 07/31/23 112 7 Signed By: <Electronically signed by MD RUTH Fajardo> 07/31/23 1201 <Electronically signed by Eryn Sands MD> 07/31/23 1531 [facility] Work Phone: 1(492) 539-359508-31-2023 Hospital Discharge instructionsAmbulatory Orders* Initiate Home Health Time Frame: 07/31/23, Location: Determined By Patient Additional Instructions HOME HEALTH TO MANAGE: Nursing/PT to eval and treat Monitor VS per protocol Monitor Cardiac assessment--Chest pain Assist with medication management and provide medication education Assist with glucose control [facility] Work Phone: 1(326) 166-688908-30-2023 History and physical note Author Georgi Vargas [facility] July 30, 2023 9:48pm Note Date/Time July 30, 2023 9: 26pm [facility] [address] [place] [address] Hospitalist H&P Signed Patient: Trey Figueroa Sr MR#: [id number] : 1950 Acct:[id number] Age/Sex: 73 / M Adm Date: 3 Loc: Room: [address] [place] [address] Type: ADM INOo Attending Dr: Georgi Vargas MD Copies to: Georgi Vargas MD [facility]~ HPI DATE OF EXAMINATION: 07/30/23 CHIEF COMPLAINT: chest pain HISTORY OF PRESENT ILLNESS: The patient is a 73-year-old man with a history of hypertension dyslipidemia insulin-dependent type 2 diabetes mellitus and gastroesophageal reflux disease presented to the ED complaining of intermittent chest pain over the last 4 to 6 weeks. According to patient, he has been having intermittent chest discomfort describedas retrosternal both sharp and pressure-like, sometimes radiating to the shoulder. He cannot identify any inciting or alleviating factors. However, today he was lifting heavy furniture and had another episode of chest pain that was more severe than previous episodes which is what prompted him to seek evaluation in the ED. The patient denies dyspnea, lightheadedness nausea vomiting but notes that he sometimes feels discomfort in his throat when he has episodes. Patient presented to the ED for evaluation vital signs on arrival were within normal limits. He was given 325 mg of aspirin and sublingual nitroglycerin after which his symptoms almost completely resolved. Has not had any recurrenceof his chest pain since that time. He is admitted for further evaluation management PMHx: as above PSHx: elbow surgery, back surgery x2, hand surgery, eye surgery SHx: former smoker quit >30 years ago, no etoh or illicit drug use FHx: negative for premature CVD ROS: 10 systems reviewed and were negative except as noted in the [facility] Medical History Acid reflux Arrhythmia Asthma Blood clot of artery under arm Colon polyp Crush injury to thumb bone grafting done Diabetes High blood cholesterol Hypertension Neuropathy Pain in right foot Paralysis [id number] Right foot ulcer Shingles Surgical History H/O elbow surgery lt H/O eye surgery rt H/O hand surgery lt Previous back surgery x 2 Family History Mother Diabetes father had DM mother did not Social History Smoking Status: Former smoker Tobacco Type: cigarettes Substance Use Type: Former User Substance Abuse Comment: Quit alcohol and tobacco 37 years ago Social History Comments: nephew Meds Medications and Allergies Allergies No Known Allergies Allergy (Verified 07/30/23 20:29) Home Medications amlodipine 10 mg tablet (Norvasc) 10 mg PO DAILY 11/15/19 [History Confirmed 07/30/23] hydroxyzine pamoate 50 mg capsule (Vistaril) 50 mg PO TID PRN HIVES 11/15/19 [History Confirmed 07/30/23] aspirin 81 mg chewable tablet 81 mg PO DAILY 12/22/19 [History Confirmed 07/30/23] dicyclomine 20 mg tablet 20 mg PO TID 12/22/19 [History Confirmed 07/30/23] hydrochlorothiazide 25 mg tablet 25 mg PO DAILY 12/22/19 [History Confirmed 07/30/23] losartan 25 mg tablet 25 mg PO DAILY 12/22/19 [History Confirmed 07/30/23] terazosin 5 mg capsule 20 mg PO QHS 12/22/19 [History Confirmed 02/13/23] albuterol sulfate 90 mcg/actuation aerosol inhaler 1 puff inhalation Q4H PRN Wheezing 02/19/21 [History Confirmed 07/30/23] amitriptyline 150 mg tablet 150 mg PO DAILY 02/19/21 [History Confirmed 07/30/23] ammonium lactate 12 % lotion 1 applic topical BID 02/19/21 [History Confirmed 07/30/23] docusate sodium 100 mg capsule (Colace) 100 mg PO DAILY 02/19/21 [History Confirmed 07/30/23] dutasteride 0.5 mg capsule 0.5 mg PO DAILY 02/19/21 [History Confirmed 07/30/23] fluticasone propionate 110 mcg/actuation HFA aerosol inhaler 1 puff inhalation Q12H 02/19/21 [History Confirmed 07/30/23] insulin glargine 100 unit/mL subcutaneous solution (Lantus U-100 Insulin) 45 unit subcut QHS 02/19/21 [History Confirmed 07/30/23] insulin lispro 100 unit/mL subcutaneous solution (Humalog U-100 Insulin) 11 unitsubcut ACHS 02/19/21 [History Confirmed 07/30/23] metoprolol tartrate 100 mg tablet 100 mg PO DAILY 02/19/21 [History Confirmed 07/30/23] nitroglycerin 0.4 mg sublingual tablet 0.4 mg sublingual Q5-15MIN PRN Chest Pain02/19/21 [History Confirmed 07/30/23] atorvastatin 40 mg tablet 40 mg PO DAILY #30 tabs 11/11/21 [Rx Confirmed 07/30/23] miconazole nitrate 2 % topical cream 1 applic topical BID 5 days #30 grams 06/09/22 [Rx Confirmed 07/30/23] donepezil 10 mg tablet 10 mg PO DAILY 08/11/22 [History Confirmed 07/30/23] tramadol 50 mg tablet 50 mg PO Q8H PRN pain 3 days #9 tabs 09/05/22 [Rx Confirmed 07/30/23] pantoprazole 40 mg tablet,delayed release 40 mg PO BID #60 tabs 01/01/23 [Rx Confirmed 07/30/23] erythromycin 5 mg/gram (0.5 %) eye ointment 07/30/23 [History] hydroxyzine pamoate 50 mg capsule mg 07/30/23 [History] ipratropium bromide 21 mcg (0.03 %) nasal spray intranasal 07/30/23 [History] lisinopril 40 mg tablet 40 mg PO DAILY 07/30/23 [History Confirmed 07/30/23] pravastatin 40 mg tablet 40 mg PO DAILY 07/30/23 [History Confirmed 07/30/23] Exam Physical Exam Vital Signs: Temp Pulse Resp BP Pulse Ox O2 Del Method 98.8 F 71 18 146/61 H 99 Room Air 07/30/23 16:13 07/30/23 20:29 07/30/23 20:29 07/30/23 20:29 07/30/23 20:29 07/30/23 20:29 Narrative: Gen: pt appears comfortable, pleasant and conversant HEENT: NC/AT mmm no oropharyngeal plaques/exudates. patch over right eye neck: supple no LAD CV: RRR no m/r/g noted Chest : CTAB respirations even/unlabored no wheezing/rales. palpation of chest wall does not reproduce pain abdomen: soft NT/ND bowel sounds x4 no palpable masses/organomegaly ext: no c/c/e distal pulses 2+ equal bilaterally neuro: a/o x4 answers questions appropriately moves all extremities no focal deficits skin: no rash GAGE Risk Score GAGE Risk Score Predictor Historical: Age > 65 Years Old, 3 or more Risk Factors: FHx,HTN,elevated cholesterol,DM,active smoker and ASA use in Past 7 Days Presentation: Recent (>/=24hr) Angina Score Risk Score (0-7): 4 Results Lab Results Labs: Laboratory Last Values Corrected WBC 7.4 X10E3/uL (4.1-10.5) 07/30/23 16:48 Uncorrected WBC Count 7.4 x10E3/uL (4.1-10.5) 07/30/23 16:48 RBC 4.34 X10E6/uL (3.90-5.60) 07/30/23 16:48 Hgb 12.5 g/dL (13.0-17.0) L 07/30/23 16:48 Hct 37.4 % (38.8-50.0) L 07/30/23 16:48 MCV 86.1 fl (83.5-101) 07/30/23 16:48 MCH 28.8 pg (27.5-35.2) 07/30/23 16:48 MCHC 33.5 g/dL (32.5-35.6) 07/30/23 16:48 RDW 14.2 % (12.0-14.8) 07/30/23 16:48 Plt Count 228 x10E3/uL (150-450) 07/30/23 16:48 MPV 6.7 fl (6.6-10.1) 07/30/23 16:48 Neut % (Auto) 66.8 % (.) 07/30/23 16:48 Lymph % (Auto) 21.1 % (.) 07/30/23 16:48 Hopkins % (Auto) 8.2 % (.) 07/30/23 16:48 Eos % (Auto) 3.1 % (.) 07/30/23 16:48 Baso % (Auto) 0.8 % (.) 07/30/23 16:48 Nucleat RBC Rel Count 0.1 /100 WBC (0-0.5) 07/30/23 16:48 Neut # (Auto) 4.9 x10E3/uL (1.8-7.7) 07/30/23 16:48 Lymph # (Auto) 1.6 x10E3/uL (1.00-4.8) 07/30/23 16:48 Hopkins # (Auto) 0.6 x10E3/uL (0.0-0.8) 07/30/23 16:48 Eos # (Auto) 0.2 x10E3/uL (0.0-0.45) 07/30/23 16:48 Baso # (Auto) 0.1 x10E3/uL (0.0-0.2) 07/30/23 16:48 Monocyte Dist Width 18.25 % (0.00-20.00) 07/30/23 16:48 PT 11.8 Seconds (9.0-12.9) 07/30/23 16:48 INR 1.0 07/30/23 16:48 APTT 26.3 Seconds (25.1-36.5) 07/30/23 16:48 D-Dimer Quant (PE/DVT) 338 ng/mL (0-243) H 07/30/23 16:48 PHA Creatinine Clear 67.24 07/30/23 16:48 Sodium 135 mmol/L (136-145) L 07/30/23 16:48 Potassium 4.4 mmol/L (3.5-5.1) 07/30/23 16:48 Chloride 103 mmol/L (98-107) 07/30/23 16:48 Carbon Dioxide 27.1 mmol/L (21.0-31.0) 07/30/23 16:48 Anion Gap 9.3 mEq/L (6.0-15.0) 07/30/23 16:48 BUN 17 mg/dL (7-25) 07/30/23 16:48 Creatinine 1.49 mg/dL (0.70-1.30) H 07/30/23 16:48 Est GFR (CKD-EPI) 48.638 mL/Min 07/30/23 16:48 Glucose 224 mg/dL (70-100) H 07/30/23 16:48 Calcium 9.2 mg/dL (8.6-10.3) 07/30/23 16:48 Total Bilirubin 0.4 mg/dl (0.3-1.0) 07/30/23 16:48 Direct Bilirubin 0.00 mg/dL (0.03-0.18) L 07/30/23 16:48 Indirect Bilirubin 0.4 mg/dL 07/30/23 16:48 AST 25 U/L (13-39) 07/30/23 16:48 ALT 28 U/L (7-52) 07/30/23 16:48 Alkaline Phosphatase 103 U/L (34-104) 07/30/23 16:48 Total Creatine Kinase 215 U/L (30-223) 07/30/23 16:48 Troponin I High Sens 8.5 pg/mL (0.0-20.0) 07/30/23 16:48 B-Natriuretic Peptide 39.0 pg/mL (5-100) 07/30/23 16:48 Total Protein 6.9 gm/dL (6.4-8.9) 07/30/23 16:48 Albumin 3.7 gm/dL (3.5-5.7) 07/30/23 16:48 Globulin 3.2 gm/dL 07/30/23 16:48 Albumin/Globulin Ratio 1.2 07/30/23 16:48 Lipase 21.0 U/L (11.0-82.0) 07/30/23 16:48 ECG Data ECG Narrative: NSR with first degree AV block 71 bpm, no acute ST/t wave changes suggestive of ischemia Assessment & Plan Assessment/Plan (1) Chest pain: Plan: admit to monitor on telemetry serial cardiac enzymes/ECGs sublingual NTG, morphine PRN continue ASA, home beta moises, statin pt to report recurrence of chest pain to staff immedately consult cardiology in am for further eval/risk stratification (2) Chronic kidney disease, stage III (moderate): Plan: serum creatinine mildly elevated compared to baseline (1.27->1.49) hold ACEI ARB and HCTZ and recheck in am, restart if not worsening Plan continue home medications as indicated on med rec form DM2- continue home insulin regimen, accucheck ac/hs, SSI, hypoglycemia protocol, check hgb a1c level VTE prophylaxis- IP vs OBS Justification Based on differential dx, clinical care plan, and risk of adverse events, if untreated, in my clinical judgement this patient requires an acute care setting as: OBSERVATION because of an expectation of an under 2 midnight stay. Estimated length of stay (# of days): 1 Documented By: Georgi Vargas MD 07/30/232119 Signed By: <Electronically signed by Georgi Vargas MD> 07/30/232147 [facility] Work Phone: 1(439) 530-813807-26-2023 NoteHNO ID: [id number] Author: Leroy Mancera MD Service: ? Author Type: Physician Type: Progress Notes Filed: 06/25/2023 4:05 PM Note Text: It is 3 months out from surgery and doing very well. He reports no back pain. His leg pain has resolved. His legs feel stronger. His main limiting factor at this time is bilateral knee pain and this is what prevents him from walking. He is going to be seeing Dr. Adams in the future about this. Given that he is doing well 3 months out from surgery he will continue with his activities as tolerated. Should he develop any new or recurrent pain I would be happy to see him again but I have not made a formal follow-up arrangement with him at this stage. Leroy Mancera MDSycamore Medical [id number] History of Present illness Narrative* Leroy Mancera MD - 06/25/2023 4:03 PM EDT It is 3 months out from surgery and doing very well. He reports no back pain. His leg pain has resolved. His legs feel stronger. His main limiting factor at this time is bilateral knee pain and this is what prevents him from walking. He is going to be seeing Dr. Adams in the future about this. Given that he is doing well 3 months out from surgery he will continue with his activities as tolerated. Should he develop any new or recurrent pain I would be happy to see him again but I have not made a formal follow-up arrangement with him at this stage. Leroy Mancera MD * Inocente Shah - 06/25/2023 1:59 PM EDT Recommendation Check for radicular symptoms/neurological deficit. Order consult to Medical Spine. [facility] NoteHNO ID: [id number] Author: Inocente Shah Service: ? Author Type: ? Type: Progress Notes Filed: 06/25/2023 4:05 PM Note Text: Recommendation Check for radicular symptoms/neurological deficit. Order consult to Medical Spine.[facility] [id number] NoteHNO ID: [id number] Author: Joes Perez OD Service: ? Author Type: HAT STEAMER Type: Progress Notes Filed: 06/12/2023 4:48 PM Note Text: ASSESSMENT/PLAN: 1. History of YAG laser capsulotomy of lens, Left Eye - ICD9: V45.61, ICD10: Z98.49 (primary diagnosis) 2. Pseudophakia, left eye - ICD9: V43.1, ICD10: Z96.1 Doing well p YAG Left eye Update Spec rx for Near correction > dist, but recommend multimedia developer wear with impact resistant lens material Annual Full Eye Exam 3. History of enucleation of right eyeball - ICD9: V45.78, ICD10: Z90.01 S/p football injury to eye when helmet broke and went into his eye (age 17) States they removed the eye but no implant Lost prosthesis Last proshethsis by [facility] Prosthetic fit pending with [employer] in [place] I have confirmed and edited as necessary the relevant ophthalmic history, ROS, and the exam findings as obtained by others. I have seen and examined this patient. I also have reviewed and agree with the assessment and plan as stated above and agree with all of its relevant components. Jose Perez, OD June 12, 2023 4:43 [facility] [place]07-13-2023 History of Present illness Narrative * Jose Perez, OD - 06/12/2023 4:43 PM EDT ASSESSMENT/PLAN: 1. History of YAG laser capsulotomy of lens, Left Eye - ICD9: V45.61, ICD10: Z98.49 (primary diagnosis) 2. Pseudophakia, left eye - ICD9: V43.1, ICD10: Z96.1 Doing well p YAG Left eye Update Spec rx for Near correction > dist, but recommend multimedia developer wear with impact resistant lens material Annual Full Eye Exam 3. History of enucleation of right eyeball - ICD9: V45.78, ICD10: Z90.01 S/p football injury to eye when helmet broke and went into his eye (age 17) States they removed the eye but no implant Lost prosthesis Last proshethsis by [facility] Prosthetic fit pending with [employer] in [place] I have confirmed and edited as necessary the relevant ophthalmic history, ROS, and the exam findings as obtained by others. I have seen and examined this patient. I also have reviewed and agree with the assessment and plan as stated above and agree with all of its relevant components. Jose Perez, OD June 12, 2023 4:43 PM [facility]23 Miscellaneous Notes* Telephone Encounter - Louis Mallory RN - 06/10/2023 1:30 PM EDT Neuro SPINE CARE COORDINATION QUICK NOTE Spoke with patient who is aware this nurse did not call. Provided patient with PT number to schedule. * Telephone Encounter - [address] - 06/10/2023 1:19 PM EDT Patient is calling in stating he is returning RN call, didn't see anything in chart. Ph. [phone] documented [facility]-2023 NoteHNO ID: [id number] Author: Ana Luisa Burnett V, MD Service: ? Author Type: Physician Type: Progress Notes Filed: 05/29/2023 3:05 PM Note Text: The documentation for this note was completed by Sailaja Chau, COA acting as a scribe for Ana Luisa BURNETT MD. 05/29/2023 3:02 PM. ASSESSMENT / PLAN: 1. Posterior capsular opacity left eye -YAG capsulotomy left eye today -Patient educated on posterior capsular opacity following cataract surgery. The risks, benefits, alternatives, personnel, and possible complications related to yttrium aluminum garnet (YAG) capsulotomy discussed with patient. Explained that risks include but are not limited to: increase in intraocular pressure, retinal tears/detachment, dislocation of the intraocular lens, and/or need for further procedures. Patient expresses understanding and elects to proceed with YAG capsulotomy performed by Dr. Burnett. Informed consent form signed by physician and patient. Literature regarding signs and symptoms of retinal detachment offered. -The patient was offered a [facility]procedure [facility]. The surgeon/proceduralist and patient have discussed in detail the risk of exposure to and/or potential harm posed by the COVID-19 virus with having a surgery/procedure at this time versus the risk of delaying the surgery/procedure. It is not possible to know either the risk of delaying the surgery or procedure or chance of getting an infection with perfect accuracy, but a joint decision was made between the patient and the surgeon/proceduralist to proceed at this time with the scheduled surgery/procedure as indicated on the consent form. -F/U 1 week with manager laboratory (Ramirez) The documentation recorded by the scribe accurately reflects the service I personally performed and the decisions made by me. I have confirmed and edited as necessary the relevant ophthalmic history, ROS, and the exam findings as obtained by others. I have seen and examined Trey Figueroa. I also have reviewed and agree with the assessment and plan as stated above and agree with all of its relevant components. Ana Luisa BURNETT MD May 29, 2023 3:02 [facility] [place]06-14-2023 NoteHNO ID: [id number] Author: Leroy Mancera MD Service: ? Author Type: Physician Type: Progress Notes Filed: 05/14/2023 3:48 PM Note Text: Trey is 6 weeks out from surgery and doing reasonably well. He reports improvement but not resolution of his symptoms. Minimal back pain. He may now begin to increase his activities as tolerated. I will see him back in 6 weeks time. We will begin him on a course of outpatient physical therapy. Leroy Mancera MDSycamore Medical [id number] NoteHNO ID: [id number] Author: Leroy Mancera MD Service: ? Author Type: Physician Type: Progress Notes Filed: 05/14/2023 3:48 PM Note Text: SPINE SURGERY ESTABLISHED VISIT This is an in-person visit. DATE OF SERVICE: 05/14/2023 DATE OF LAST VISIT: 11/27/2022 SUBJECTIVE: HPI:Trey Figueroa is a 73 year old male presenting alone. He is about 77 from L4-5 laminotomies and foraminotomies. Overall, he states that he is doing okay. He states that his preoperative pain has improved substantially. However, he has had some new pain from his back down to his left buttocks and thigh. He states this is worsened somewhat over the last several weeks. He is also been mostly in a wheelchair because of chronic pain in his knees. MEDICATIONS: neomycin/polymyxin b/dexametha(MAXITROL 3.5 MG/G-10,000 UNIT/G-0.1 % EYE OINTMENT) Use 1 application in the right eye twice daily. right socket only four times a day for a week then twice daily x 1 week, then stop. cyclobenzaprine (FLEXERIL) 10 mg tablet Take 1 tablet by mouth three times daily as needed. donepezil (ARICEPT) 10 mg tablet TAKE 1 TABLET BY MOUTH AT BEDTIME EVERY DAY tiZANidine (ZANAFLEX) 4 mg tablet TAKE ONE-HALF TO ONE TABLET BY MOUTH AT BEDTIME EVERY DAY oxybutynin (DITROPAN) 5 mg tablet Take 5 mg by mouth twice daily. Ipratropium [place] (ATROVENT) 21 mcg (0.03 %) nasal spray insulin aspart U-100 (NOVOLOG) 100 unit/mL Inject 11 Units subcutaneously three times daily before meals. insulin glargine (LANTUS) 100 unit/mL injection Inject 40 Units subcutaneously daily at bedtime. atorvastatin (LIPITOR) 40 mg tablet Take 40 mg by mouth once daily. dutasteride (AVODART) 0.5 mg capsule [address] (PROTONIX) 20 mg tablet Take 1 tablet by mouth. pravastatin (PRAVACHOL) 40 mg tablet 1 tablet Once a day Orally 90 days albuterol HFA (PROVENTIL HFA, VENTOLIN HFA) 90 mcg/actuation inhaler Inhale 2 Puffs as instructed every 4 hours as needed. ammonium lactate (LAC-HYDRIN) 12 % lotion aspirin 81 mg chewable tablet Take 81 mg by mouth once daily. dicyclomine (BENTYL) 20 mg tablet 1 tablet enalapril (VASOTEC) 20 mg tablet Take 20 mg by mouth. FLOVENT HFA 110 mcg/actuation inhaler twice daily. hydroCHLOROthiazide (HYDRODIURIL, ESIDRIX) 25 mg tablet 1 tab hydrOXYzine pamoate (VISTARIL) 50 mg capsule TAKE 1 CAPSULE EVERY 8 HOURS insulin regular human (NOVOLIN R,HUMULIN R) 100 unit/mL injection 45 units (Patient not taking: No sig reported) losartan (COZAAR) 25 mg tablet Take 25 mg by mouth twice daily. metoprolol tartrate, short acting, (LOPRESSOR) 50 mg tablet Take 50 mg by mouth twice daily. nitroglycerin sublingual (NITROQUICK) 0.4 mg SL tablet Dissolve 0.4 mg under the tongue. terazosin (HYTRIN) 5 mg capsule Take 10 mg by mouth daily at bedtime. amLODIPine (NORVASC) 10 mg tablet Take 10 mg by mouth. amitriptyline (ELAVIL) 100 mg tablet Take 150 mg by mouth. Patient Entered Questionnaires Spine Questions 12/15/2019 Pain Location: Lower back Pain Duration: 1 to 5 years Pain over last 6 months: Every day or nearly every day in the past 6 months Symptoms from neck/cervical spine: Yes Employment Status: Disabled due to back pain, permanently or temporarily Off work 1 month or more due to back/neck pain: Yes Applied for/receive disability/WC due to low back/neck pain Yes Involved in law suit/legal claim: No Spine Red Flags 12/15/2019 Any type of cancer: No Unexplained fever: No Bowel or bladder disfunction: Yes Unintentional weight loss: Yes Osteoporosis: No Neck Questionnaires 12/15/2019 Benzel Modified GERDA Score 3 (A lower score indicates increased pain and issues.) Low Back Pain Questionnaires 12/15/2019 STarT Risk Score 5 (High risk for prolonged disability) STarT Distress Score 5 STarT Total Score 9 KIRSTY Score 40 (Moderate disability) PROMIS Score Percentiles Physical Health 12/15/2019 Physical Function Percentile 0 Sleep Percentile 4 Fatigue Percentile 4 Pain Interference Percentile 1 PROMIS SOCIAL ROLE SCORE 12/15/2019 Social Role Satisfaction Percentile 8 PROMIS Global Health Scale 12/15/2019 Physical Health Percentile 2 Mental Health Percentile 19* Percentiles provide an indication of how the patient's score ranks in relation to the general population. Higher percentile rankings indicate better function/quality of life. 50th percentile is the average of the general population and indicates half of respondents had a worse score. Depression Screening: PHQ-9 12/15/2019 Score 19 PHQ-9 Self-harm Question 12/15/2019 Thoughts that you would be better off , or of hurting yourself in some way 0 PHQ-9 Self-Harm (Item 9) response options: 0 Not at all 1 Several days 2 More than half the days 3 Nearly every day PHQ-9 Levels: 0-4 No to mild depression 5-9 Mild depression 10-14 Moderate depression 15-19 Moderately severe depression 20-27 Severe depression (more content not included)...[facility] [id number] NoteHNO ID: [id number] Author: Brenda Charles OD Service: ? Author Type: HAT STEAMER Type: Progress Notes Filed: 05/09/2023 9:14 AM Note Text: ASSESSMENT/PLAN: 1. Posterior vitreous detachment of left eye - ICD9: 379.21, ICD10: H43.812 (primary diagnosis) Pt c/o 3 new floaters OS x 1 month; denies flashes. Patient was instructed to return promptly for any change in floaters, new or additional flashes or any change in peripheral vision. Patient instructed to check each eye separately and daily. Patient given opportunity to ask questions and to discuss posterior vitreous detachment. All questions were answered. Discussed r/b of floaterectomy - strongly encouraged observation at this time. 2. PCO (posterior capsular opacification), left - ICD9: 366.50, ICD10: H26.492 As scheduled for yag. 3. Pseudophakia, left eye - ICD9: V43.1, ICD10: Z96.1 4. History of enucleation of right eyeball - ICD9: V45.78, ICD10: Z90.01 Restart emycin anabel. 5. Type 2 diabetes mellitus without retinopathy (HCC) - ICD9: 250.00, ICD10: E11.9 - Controlled - Continue current medications Brenda Charles, OD I have confirmed and edited as necessary the relevant ophthalmic history, ROS, and the exam findings as obtained by others. I have seen and examined this patient. I have discussed the case and the management of this patient's care with the resident or fellow as appropriate. I also have reviewed and agree with the assessment and plan as stated above and agree with all of its relevant components. Brenda Charles, OD May 09, 2023 9:09 [facility]06-01-2023 Miscellaneous Notes* Telephone Encounter - Louis Mallory RN - 05/01/2023 2:11 PM EDT Neuro SPINE CARE COORDINATION QUICK NOTE Spoke with patient who states he is in a great amount of pain and is unable to do things at home. STRONGLY encouraged patient to be admitted to the SNF per passport. Left a message for Clauida (RN from [facility]) stating that Edward will consider to go to the facility. * Telephone Encounter - Louis Mallory RN - 05/01/2023 10:54 AM EDT Neuro SPINE CARE COORDINATION QUICK NOTE Attempted to call patient and left voicemail. Spoke with Claudia who is attempting to have patient admitted to a SNF, * Telephone Encounter - Manju Bazzi - 05/01/2023 10:49 AM EDT Tru called and stated she spoke to Monika about getting more nurse care for Edward. Pt will not go. Tru stated she got there this morning and he was laying there in bed, in pain andstated he doesn't want to talk about it. Tru's number [phone] Pt number [phone] [facility] Miscellaneous Notes* Telephone Encounter - Louis Mallory RN - 04/29/2023 3:43 PM EDT Neuro SPINE CARE COORDINATION QUICK NOTE Spoke with Claudia with [facility]. States she has been following patient for years and he is unable totake care of himself at this time. Claudia is attempting to place patient into facility. * Telephone Encounter - Stephanie Shaffer - 04/29/2023 3:28 PM EDT Rec'd call from Claudia Meyer - Nurse mcelroy/[facility]; states she has been following this patient for years; she states she has found a facility for patient to go to until he's stronger to take care of himself (Medicaid); states at the present time patient cannot care for himself whatsoever; ph. [phone] * Telephone Encounter - Louis Mallory RN - 04/29/2023 10:46 AM EDT Neuro SPINE CARE COORDINATION QUICK NOTE Spoke with patient, please see other encounter * Telephone Encounter - Felisa Hilario - 04/29/2023 10:08 AM EDT Patient is calling would like to talk to nurse. He just left [facility] longterm and was wondering if he needs to go to another one or just do PT at home. Call back # [phone] documented in [facility]Cl[facility]05[facility]30-2023 Miscellaneous Notes* Telephone Encounter - Louis Mallory RN - 04/29/2023 10:27 AM EDT Neuro SPINE CARE COORDINATION QUICK NOTE 03/24/2023: L4-5 bilateral laminotomy and foraminotomy Spoke with patient and answered all questions. Patient was discharged from rehab facility in [place] on 04/24/2023. [facility] evaluated patient yesterday 04/28/2023 and will have an aide, nurse and therapy working with him. C/O post operative pain on left side (starts at left knee and radiates to upper back and base of skull). Patient is currently taking Percocet and a muscle relaxer twice a day (did not know the strength ofthe medication). Educated on post op pain and expectations. Denies weakness, fever, drainage from incision. * Telephone Encounter - Ksenia Nieto [facility] - 04/29/2023 9:57 AM EDT Pt was just released from a rehab facility on . His surgery with Dr. Mancera was on March 24.Pt is asking should he be admitted to another facility or do in home PT/OT. He has been suffering from pain since he was released. He cannot lift, bend or twist without severe pain on his left side. The pain goes from the knee, up the back to the base of the fransico. Please advise. documented in this encounterCl[facility]04-26-2023 NoteHNO ID: [id number] Author: Emy Garcia RN Service: Nursing Author Type: Registered Nurse Type: Nursing Progress Note Filed: 03/26/2023 5:52 PM Note Text: Other: called report to [facility]04-26-2023 Note HNO ID: [id number] Author: Joyce Gomez MD Service: General Internal Medicine Author Type: Physician Type: Progress Notes Filed: 03/26/2023 2:43 PM Note Text: PROGRESS NOTE - INTERNAL MEDICINE PATIENT NAME: Trey Figueroa SERVICE DATE: March 26, 2023 SERVICE TIME: 2:42 PM PCP: Yasir Aguirre MD ADMITTING PHYSICIAN: Leroy Mancera MD MD INTERVAL HISTORY OF PRESENT ILLNESS: pain controlled / no cp/ sob no weakness REVIEW OF SYSTEMS: GENERAL: No weight loss, malaise or fevers RESPIRATORY: Negative for cough, hemoptysis, wheezing, COPD, dyspnea or shortness of breath CARDIOVASCULAR: Negative for chest pain, leg swelling, hypertension, CHF or palpitations GI: No nausea, vomiting, or diarrhea : No history of dysuria, frequency or incontinence PSYCH: Negative for sleep disturbance, mood disorder and recent psychosocial stressors. ENDOCRINE: Negative for cold or heat intolerance, polyuria, polydipsia and goiter All other reviewed and negative other than HPI. PRIOR TO ADMISSION MEDICATIONS: donepezil (ARICEPT) 10 mg tablet, TAKE 1 TABLET BY MOUTH AT BEDTIME EVERY DAY, Disp: , Rfl: , 03/23/2023 tiZANidine (ZANAFLEX) 4 mg tablet, TAKE ONE-HALF TO ONE TABLET BY MOUTH AT BEDTIME EVERY DAY, Disp: , Rfl: , 03/23/2023 oxybutynin (DITROPAN) 5 mg tablet, Take 5 mg by mouth twice daily., Disp: , Rfl: , 03/23/2023 Ipratropium [place] (ATROVENT) 21 mcg (0.03 %) nasal spray, , Disp: , Rfl: , 03/23/2023 insulin aspart U-100 (NOVOLOG) 100 unit/mL, Inject 11 Units subcutaneously three times daily before meals., Disp: , Rfl: , 03/23/2023 insulin glargine (LANTUS) 100 unit/mL injection, Inject 40 Units subcutaneously daily at bedtime., Disp: , Rfl: , 03/23/2023 atorvastatin (LIPITOR) 40 mg tablet, Take 40 mg by mouth once daily., Disp: , Rfl: , 03/23/2023 neomycin/polymyxin b/dexametha(MAXITROL 3.5 MG/G-10,000 UNIT/G-0.1 % EYE OINTMENT), right socket only four times a day for a week then twice daily x 1 week, then stop., Disp: 7 g, Rfl: 0, 03/22/2023 dutasteride (AVODART) 0.5 mg capsule, 1 capsule, Disp: , Rfl: , 03/23/[address] (PROTONIX) 20 mg tablet, Take 1 tablet by mouth., Disp: , Rfl: , 03/23/2023 pravastatin (PRAVACHOL) 40 mg tablet, 1 tablet Once a day Orally 90 days, Disp: , Rfl: , 03/23/2023 erythromycin (ROMYCIN) 5 mg/gram (0.5 %) ophthalmic ointment, Use 1 application in the right eye twice daily., Disp: 1 g, Rfl: 11 albuterol HFA (PROVENTIL HFA, VENTOLIN HFA) 90 mcg/actuation inhaler, Inhale 2 Puffs as instructed every 4 hours as needed., Disp: , Rfl: , 03/23/2023 ammonium lactate (LAC-HYDRIN) 12 % lotion, , Disp: , Rfl: , 03/24/2023 aspirin 81 mg chewable tablet, Take 81 mg by mouth once daily. , Disp: , Rfl: , 03/23/2023 dicyclomine (BENTYL) 20 mg tablet, 1 tablet, Disp: , Rfl: , 03/23/2023 enalapril (VASOTEC) 20 mg tablet, Take 20 mg by mouth., Disp: , Rfl: , 03/23/2023 FLOVENT HFA 110 mcg/actuation inhaler, twice daily., Disp: , Rfl: , 03/23/2023 hydroCHLOROthiazide (HYDRODIURIL, ESIDRIX) 25 mg tablet, 1 tab, Disp: , Rfl: , 03/17/2023 hydrOXYzine pamoate (VISTARIL) 50 mg capsule, TAKE 1 CAPSULE EVERY 8 HOURS, Disp: , Rfl: , 03/23/2023 losartan (COZAAR) 25 mg tablet, Take 25 mg by mouth twice daily., Disp: , Rfl: , 03/23/2023 metoprolol tartrate, short acting, (LOPRESSOR) 50 mg tablet, Take 50 mg by mouth twice daily., Disp: , Rfl: , 03/23/2023 at 830 nitroglycerin sublingual (NITROQUICK) 0.4 mg SL tablet, Dissolve 0.4 mg under the tongue., Disp: , Rfl: , 3 yrs ago terazosin (HYTRIN) 5 mg capsule, Take 10 mg by mouth daily at bedtime., Disp: , Rfl: , 03/23/2023 amLODIPine (NORVASC) 10 mg tablet, Take 10 mg by mouth., Disp: , Rfl: , 03/23/2023 amitriptyline (ELAVIL) 100 mg tablet, Take 150 mg by mouth., Disp: , Rfl: , 03/23/2023 [DISCONTINUED] naproxen (NAPROSYN) 500 mg tablet, TAKE 1 TABLET BY MOUTH TWICE DAILY WITH FOOD OR MILK FOR 10 DAYS (Patient not taking: Reported on 03/24/2023), Disp: , Rfl: , Not Taking [DISCONTINUED] amoxicillin-clavulanic acid (AUGMENTIN) 875-125 mg per tablet, Take by mouth. (Patient not taking: Reported on 03/21/2023), Disp: , Rfl: [DISCONTINUED] cephALEXin (KEFLEX) 500 mg capsule, TAKE 1 CAPSULE BY MOUTH EVERY 6 HOURS for 7 (SEVEN) days (Patient not taking: Reported on 03/21/2023), Disp: , Rfl: [DISCONTINUED] traMADol (ULTRAM) 50 mg tablet, Take by mouth., Disp: , Rfl: , 03/23/2023 insulin regular human (NOVOLIN R,HUMULIN R) 100 unit/mL injection, 45 units (Patient not taking: Reported on 03/21/2023), Disp: , Rfl: [DISCONTINUED] meloxicam (MOBIC) 15 mg tablet, 1 tablet (Patient not taking: Reported on 03/21/2023), Disp: , Rfl: [DISCONTINUED] docusate sodium (COLACE) 100 mg capsule, 1 capsule as needed, Disp: , Rfl: , 03/23/2023 INs AND OUT SUMMARY: Intake/Output Summary (Last 24 hours) at 03/26/2023 1442 Last data filed at 03/26/2023 1200 Gross per 24 hour Intake 300 ml Output 200 (more content not included)...[facility] [id number] NoteHNO ID: [id number] Author: Sandeep Morton MD Service: Orthopaedic Surgery Author Type: Resident Type: Progress Notes Filed: 03/26/2023 8:58 AM Note Text: ORTHOPAEDIC SURGERY INPATIENT PROGRESS NOTE Assessment Surgery: L4-5 bilateral lopez isabela Date of Surgery: 03/24/23 Attending: Dr. Mancera Plan Active issues -PT/OT -Dispo planning Remainder of plan - Antibiotics: ancef 3g x 24 hours perioperatively - DVT prophylaxis - SCDs, mobilization - Activity: ad martha, no heavy lifting/bending/twisting - Pain - Multimodal, orals - Baxter: Per RN protocol - Regular diet - MIVF w/ LR 75 mL/hr x24 hours; HLIV when tolerating sufficient PO - PT/OT consult; CM consult - Wound: Dry dressing - Imaging: Intra-op finals obtained, uprights ordered POD2 - Acute blood loss anemia: Hb>7, no indication for transfusion at this time Consulting services IM PT OT Disposition Anticipated discharge discharge to SNF today Rounding Subjective Recovering well, no issues. Objective Blood pressure (!) 105/35, pulse 82, temperature 37.6 ?C (99.7 ?F), temperature source Oral, resp. rate 16, height 195.6 cm (6' 5 ), weight (!) 143.8 kg (317 lb), SpO2 94 %. Physical Exam AAOx3, NAD Breathing comfortably at rest RRR to peripheral palpation Spine Exam Dressing c/d/i Motor: RLE: 4/5 Hip extension 4/5 Hip flexion 4/5 Knee extension 4/5 Knee flexion 4/5 Dorsiflexion 4/5 EHL 4/5 Plantarflexion LLE: 4/5 Hip extension 4/5 Hip flexion 4/5 Knee extension 4/5 Knee flexion 4/5 Dorsiflexion 4/5 EHL 4/5 Plantarflexion Vascular: 2+ radial, DP, PT pulses bilat Lab Review Creatinine (mg/dL) Date Value 03/26/2023 1.26 (H) 03/25/2023 1.35 (H) 03/21/2023 1.25 (H) 03/29/2005 0.80 03/11/2005 1.00 03/08/2005 1.00 Creatinine (POCT) (mg/dL) Date Value 12/20/2021 1.30 Sodium (mmol/L) Date Value 03/26/2023 135 (L) 03/25/2023 138 03/21/2023 139 03/29/2005 142 03/11/2005 137 03/08/2005 137 Potassium (mmol/L) Date Value 03/26/2023 4.1 03/25/2023 4.5 03/21/2023 4.7 03/29/2005 3.7 03/11/2005 4.8 03/08/2005 4.7 Hemoglobin (g/dL) Date Value 03/26/2023 12.0 (L) 03/25/2023 12.8 (L) 03/21/2023 13.5 03/29/2005 13.1 (L) 03/11/2005 14.4 03/08/2005 14.4 Hematocrit (%) Date Value 03/26/2023 36.1 (L) 03/25/2023 38.7 (L) 03/21/2023 40.8 03/29/2005 38.1 (L) 03/11/2005 41.4 (L) 03/08/2005 42.8 WBC (k/uL) Date Value 03/26/2023 11.97 (H) 03/25/2023 10.24 03/21/2023 6.63 03/29/2005 5.9 03/11/2005 7.2 03/08/2005 7.2 PT INR (no units) Date Value 03/29/2005 1.1 03/12/2005 1.8 (H) 03/11/2005 1.6 (H) Glucose, Point of Care (mg/dL) Date Value 03/26/2023 107 (A) 03/25/2023 118 (A) 03/25/2023 146 (A) 03/25/2023 175 (A) 03/25/2023 252 (A) 03/25/2023 217 (A) Please scroll above for Assessment AND Plan. Real Morton MD Orthopaedic Surgery, PGY-3 Call/text: [phone], Pager: [phone] If after 5pm or before 6am, or if urgent, please page the orthopaedic on-call resident at: [phone] for [facility] patients [phone] for [facility] patients [phone] for [facility] patients [phone] for [facility] patients Plan of care discussed with: Provider, RN, Patient.[facility] [id number] NoteHNO ID: [id number] Author: JIMMIE Gramajo Service: Care Management Author Type: Insurance Processor Type: Care Mgt Progress Note Filed: 03/25/2023 5:38 PM Note Text: CASE MANAGEMENT PROGRESS NOTE SERVICE DATE: 03/25/2023 SERVICE TIME: 1315 1315: PT is recommending SNF. Gave patient a FOC list of SNFs to choose from. Pt. Agreeable at this time to choosing facilities. 1525: Came back and asked the patient which SNF he had chosen. Per the patient, he is not ready at this time to make a decision. This SW sent referrals to all the facilities that was listed on the FOC list that was given to the patient. A member of the care management team can follow up with the patient as to which facility he has chosen. SIGNATURE: JIMMIE Gramajo PATIENT NAME: Tery Figueroa DATE: March 25, 2023 TIME: 5:35 PM PAGER/CONTACT #: [phone] [id number] NoteHNO ID: [id number] Author: Joyce Gomez MD Service: General Internal Medicine Author Type: Physician Type: Progress Notes Filed: 03/25/2023 3:04 PM Note Text: PROGRESS NOTE - INTERNAL MEDICINE PATIENT NAME: Trey Figueroa SERVICE DATE: March 25, 2023 SERVICE TIME: 3:02 PM PCP: Yasir Aguirre MD ADMITTING PHYSICIAN: Leroy Mancera MD MD INTERVAL HISTORY OF PRESENT ILLNESS: pt seen denied cp/ sob no weakness . No palpition REVIEW OF SYSTEMS: GENERAL: No weight loss, malaise or fevers RESPIRATORY: Negative for cough, hemoptysis, wheezing, COPD, dyspnea or shortness of breath CARDIOVASCULAR: Negative for chest pain, leg swelling, hypertension, CHF or palpitations GI: No nausea, vomiting, or diarrhea : No history of dysuria, frequency or incontinence PSYCH: Negative for sleep disturbance, mood disorder and recent psychosocial stressors. ENDOCRINE: Negative for cold or heat intolerance, polyuria, polydipsia and goiter All other reviewed and negative other than HPI. PRIOR TO ADMISSION MEDICATIONS: donepezil (ARICEPT) 10 mg tablet, TAKE 1 TABLET BY MOUTH AT BEDTIME EVERY DAY, Disp: , Rfl: , 03/23/2023 tiZANidine (ZANAFLEX) 4 mg tablet, TAKE ONE-HALF TO ONE TABLET BY MOUTH AT BEDTIME EVERY DAY, Disp: , Rfl: , 03/23/2023 oxybutynin (DITROPAN) 5 mg tablet, Take 5 mg by mouth twice daily., Disp: , Rfl: , 03/23/2023 Ipratropium [place] (ATROVENT) 21 mcg (0.03 %) nasal spray, , Disp: , Rfl: , 03/23/2023 insulin aspart U-100 (NOVOLOG) 100 unit/mL, Inject 11 Units subcutaneously three times daily before meals., Disp: , Rfl: , 03/23/2023 insulin glargine (LANTUS) 100 unit/mL injection, Inject 40 Units subcutaneously daily at bedtime., Disp: , Rfl: , 03/23/2023 atorvastatin (LIPITOR) 40 mg tablet, Take 40 mg by mouth once daily., Disp: , Rfl: , 03/23/2023 neomycin/polymyxin b/dexametha(MAXITROL 3.5 MG/G-10,000 UNIT/G-0.1 % EYE OINTMENT), right socket only four times a day for a week then twice daily x 1 week, then stop., Disp: 7 g, Rfl: 0, 03/22/2023 dutasteride (AVODART) 0.5 mg capsule, 1 capsule, Disp: , Rfl: , 03/23/[address] (PROTONIX) 20 mg tablet, Take 1 tablet by mouth., Disp: , Rfl: , 03/23/2023 pravastatin (PRAVACHOL) 40 mg tablet, 1 tablet Once a day Orally 90 days, Disp: , Rfl: , 03/23/2023 erythromycin (ROMYCIN) 5 mg/gram (0.5 %) ophthalmic ointment, Use 1 application in the right eye twice daily., Disp: 1 g, Rfl: 11 albuterol HFA (PROVENTIL HFA, VENTOLIN HFA) 90 mcg/actuation inhaler, Inhale 2 Puffs as instructed every 4 hours as needed., Disp: , Rfl: , 03/23/2023 ammonium lactate (LAC-HYDRIN) 12 % lotion, , Disp: , Rfl: , 03/24/2023 aspirin 81 mg chewable tablet, Take 81 mg by mouth once daily. , Disp: , Rfl: , 03/23/2023 dicyclomine (BENTYL) 20 mg tablet, 1 tablet, Disp: , Rfl: , 03/23/2023 enalapril (VASOTEC) 20 mg tablet, Take 20 mg by mouth., Disp: , Rfl: , 03/23/2023 FLOVENT HFA 110 mcg/actuation inhaler, twice daily., Disp: , Rfl: , 03/23/2023 hydroCHLOROthiazide (HYDRODIURIL, ESIDRIX) 25 mg tablet, 1 tab, Disp: , Rfl: , 03/17/2023 hydrOXYzine pamoate (VISTARIL) 50 mg capsule, TAKE 1 CAPSULE EVERY 8 HOURS, Disp: , Rfl: , 03/23/2023 losartan (COZAAR) 25 mg tablet, Take 25 mg by mouth twice daily., Disp: , Rfl: , 03/23/2023 metoprolol tartrate, short acting, (LOPRESSOR) 50 mg tablet, Take 50 mg by mouth twice daily., Disp: , Rfl: , 03/23/2023 at 830 nitroglycerin sublingual (NITROQUICK) 0.4 mg SL tablet, Dissolve 0.4 mg under the tongue., Disp: , Rfl: , 3 yrs ago terazosin (HYTRIN) 5 mg capsule, Take 10 mg by mouth daily at bedtime., Disp: , Rfl: , 03/23/2023 amLODIPine (NORVASC) 10 mg tablet, Take 10 mg by mouth., Disp: , Rfl: , 03/23/2023 amitriptyline (ELAVIL) 100 mg tablet, Take 150 mg by mouth., Disp: , Rfl: , 03/23/2023 [DISCONTINUED] naproxen (NAPROSYN) 500 mg tablet, TAKE 1 TABLET BY MOUTH TWICE DAILY WITH FOOD OR MILK FOR 10 DAYS (Patient not taking: Reported on 03/24/2023), Disp: , Rfl: , Not Taking [DISCONTINUED] amoxicillin-clavulanic acid (AUGMENTIN) 875-125 mg per tablet, Take by mouth. (Patient not taking: Reported on 03/21/2023), Disp: , Rfl: [DISCONTINUED] cephALEXin (KEFLEX) 500 mg capsule, TAKE 1 CAPSULE BY MOUTH EVERY 6 HOURS for 7 (SEVEN) days (Patient not taking: Reported on 03/21/2023), Disp: , Rfl: [DISCONTINUED] traMADol (ULTRAM) 50 mg tablet, Take by mouth., Disp: , Rfl: , 03/23/2023 insulin regular human (NOVOLIN R,HUMULIN R) 100 unit/mL injection, 45 units (Patient not taking: Reported on 03/21/2023), Disp: , Rfl: [DISCONTINUED] meloxicam (MOBIC) 15 mg tablet, 1 tablet (Patient not taking: Reported on 03/21/2023), Disp: , Rfl: [DISCONTINUED] docusate sodium (COLACE) 100 mg capsule, 1 capsule as needed, Disp: , Rfl: , 03/23/2023 INs AND OUT SUMMARY: Intake/Output Summary (Last 24 hours) at 03/25/2023 1502 Last data filed at 03/25/2023 0600 Gross per 24 hour Intake 962.5 ml (more content not included)...[facility] [id number] NoteHNO ID: [id number] Author: Sandeep Morton MD Service: Orthopaedic Surgery Author Type: Resident Type: Progress Notes Filed: 03/25/2023 10:38 AM Note Text: ORTHOPAEDIC SURGERY INPATIENT PROGRESS NOTE Assessment Surgery: L4-5 bilateral lopez isabela Date of Surgery: 03/24/23 Attending: Dr. Mancera Plan Active issues -PT/OT -Dispo planning Remainder of plan - Antibiotics: ancef 3g x 24 hours perioperatively - DVT prophylaxis - SCDs, mobilization - Activity: ad martha, no heavy lifting/bending/twisting - Pain - Multimodal, orals - Baxter: Per RN protocol - Regular diet - MIVF w/ LR 75 mL/hr x24 hours; HLIV when tolerating sufficient PO - PT/OT consult; CM consult - Wound: Dry dressing - Imaging: Intra-op finals obtained, uprights ordered POD2 - Acute blood loss anemia: Hb>7, no indication for transfusion at this time Consulting services IM PT OT Disposition Anticipated discharge discharge home today Rounding Subjective Recovering well, no issues. Objective Blood pressure 126/68, pulse 75, temperature 36.8 ?C (98.2 ?F), temperature source Oral, resp. rate 16, height 195.6 cm (6' 5 ), weight (!) 143.8 kg (317 lb), SpO2 97 %. Physical Exam AAOx3, NAD Breathing comfortably at rest RRR to peripheral palpation Spine Exam Dressing c/d/i Motor: RLE: 4/5 Hip extension 4/5 Hip flexion 4/5 Knee extension 4/5 Knee flexion 4/5 Dorsiflexion 4/5 EHL 4/5 Plantarflexion LLE: 4/5 Hip extension 4/5 Hip flexion 4/5 Knee extension 4/5 Knee flexion 4/5 Dorsiflexion 4/5 EHL 4/5 Plantarflexion Vascular: 2+ radial, DP, PT pulses bilat Lab Review Creatinine (mg/dL) Date Value 03/25/2023 1.35 (H) 03/21/2023 1.25 (H) 03/29/2005 0.80 03/11/2005 1.00 03/08/2005 1.00 Creatinine (POCT) (mg/dL) Date Value 12/20/2021 1.30 Sodium (mmol/L) Date Value 03/25/2023 138 03/21/2023 139 03/29/2005 142 03/11/2005 137 03/08/2005 137 Potassium (mmol/L) Date Value 03/25/2023 4.5 03/21/2023 4.7 03/29/2005 3.7 03/11/2005 4.8 03/08/2005 4.7 Hemoglobin (g/dL) Date Value 03/25/2023 12.8 (L) 03/21/2023 13.5 03/29/2005 13.1 (L) 03/11/2005 14.4 03/08/2005 14.4 Hematocrit (%) Date Value 03/25/2023 38.7 (L) 03/21/2023 40.8 03/29/2005 38.1 (L) 03/11/2005 41.4 (L) 03/08/2005 42.8 WBC (k/uL) Date Value 03/25/2023 10.24 03/21/2023 6.63 03/29/2005 5.9 03/11/2005 7.2 03/08/2005 7.2 PT INR (no units) Date Value 03/29/2005 1.1 03/12/2005 1.8 (H) 03/11/2005 1.6 (H) Glucose, Point of Care (mg/dL) Date Value 03/25/2023 163 (A) 03/24/2023 310 (A) 03/24/2023 136 (A) 03/24/2023 121 (A) 03/24/2023 90 08/28/2022 147 (A) Please scroll above for Assessment AND Plan. Real Morton MD Orthopaedic Surgery, PGY-3 Call/text: [phone], Pager: [phone] If after 5pm or before 6am, or if urgent, please page the orthopaedic on-call resident at: [phone] for [facility] patients [phone] for [facility] patients [phone] for [facility] patients [phone] for [facility] patients Plan of care discussed with: Provider, RN, Patient.[facility] [phone] NoteHNO ID: [id number] Author: Sandeep Morton MD Service: Orthopaedic Surgery Author Type: Resident Type: Progress Notes Filed: 03/24/2023 2:25 PM Note Text: ORTHOPAEDIC SURGERY INPATIENT PROGRESS NOTE Assessment Surgery: L4-5 bilateral lopez isabela Date of Surgery: 03/24/23 Attending: Dr. Mancera Plan Active issues -PT/OT -Dispo planning Remainder of plan - Antibiotics: ancef 3g x 24 hours perioperatively - DVT prophylaxis - SCDs, mobilization - Activity: ad martha, no heavy lifting/bending/twisting - Pain - Multimodal, orals - Baxter: Per RN protocol - Regular diet - MIVF w/ LR 75 mL/hr x24 hours; HLIV when tolerating sufficient PO - PT/OT consult; CM consult - Wound: Dry dressing - Imaging: Intra-op finals obtained, uprights ordered POD2 Consulting services IM PT OT Disposition Anticipated discharge to [facility] from PACU, plan for discharge home tomorrow Rounding Subjective Recovering well, no issues. Objective Blood pressure 121/74, pulse 72, temperature 36.7 ?C (98.1 ?F), temperature source Temporal Artery, resp. rate 16, SpO2 97 %. Physical Exam AAOx3, NAD Breathing comfortably at rest RRR to peripheral palpation Spine Exam Dressing c/d/i Motor: RLE: 4/5 Hip extension 4/5 Hip flexion 4/5 Knee extension 4/5 Knee flexion 4/5 Dorsiflexion 4/5 EHL 4/5 Plantarflexion LLE: 4/5 Hip extension 4/5 Hip flexion 4/5 Knee extension 4/5 Knee flexion 4/5 Dorsiflexion 4/5 EHL 4/5 Plantarflexion Vascular: 2+ radial, DP, PT pulses bilat Lab Review Creatinine (mg/dL) Date Value 03/21/2023 1.25 (H) 03/29/2005 0.80 03/11/2005 1.00 03/08/2005 1.00 Creatinine (POCT) (mg/dL) Date Value 12/20/2021 1.30 Sodium (mmol/L) Date Value 03/21/2023 139 03/29/2005 142 03/11/2005 137 03/08/2005 137 Potassium (mmol/L) Date Value 03/21/2023 4.7 03/29/2005 3.7 03/11/2005 4.8 03/08/2005 4.7 Hemoglobin (g/dL) Date Value 03/21/2023 13.5 03/29/2005 13.1 (L) 03/11/2005 14.4 03/08/2005 14.4 Hematocrit (%) Date Value 03/21/2023 40.8 03/29/2005 38.1 (L) 03/11/2005 41.4 (L) 03/08/2005 42.8 WBC (k/uL) Date Value 03/21/2023 6.63 03/29/2005 5.9 03/11/2005 7.2 03/08/2005 7.2 PT INR (no units) Date Value 03/29/2005 1.1 03/12/2005 1.8 (H) 03/11/2005 1.6 (H) Glucose, Point of Care (mg/dL) Date Value 03/24/2023 121 (A) 03/24/2023 90 08/28/2022 147 (A) 02/04/2022 130 (A) 01/21/2022 97 01/21/2022 81 Please scroll above for Assessment AND Plan. Real Morton MD Orthopaedic Surgery, PGY-3 Call/text: [phone], Pager: [phone] If after 5pm or before 6am, or if urgent, please page the orthopaedic on-call resident at: [phone] for [facility] patients [phone] for [facility] patients [phone] for [facility] patients [phone] for [facility] patients Plan of care discussed with: Provider, RN, Patient.[facility] [phone] NoteHNO ID: [id number] Author: Janna Brown APRN.MEMBERSHIP SOLICITOR Service: Anesthesiology Author Type: Nurse Hand Tube Bender Type: Anesthesia Procedure Notes Filed: 03/24/2023 11:59 AM Note Text: ANESTHESIOLOGY PROCEDURE NOTE Airway General Information Procedure Start Time/Medication Administration: 03/24/2023 11:37 AM Patient location during procedure: OR Patient identity confirmed: arm band, care count team member and patient Staffing Anesthesiologist: Allen Johnson MD MEMBERSHIP SOLICITOR: Janna Brown APRN.MEMBERSHIP SOLICITOR Performed by: MEMBERSHIP SOLICITOR Indications and Patient Condition Indications for airway management: anesthesia Preoxygenated: yes anesthesia circuit Method: asleep Difficult Mask: No Airway Accessory: oral airway Final Airway Details Final airway type: endotracheal airway Final Endotracheal Airway: ETT Cuffed: yes Successful intubation technique: direct laryngoscopy Devices used: intubating stylet Endotracheal tube insertion site: oral Blade: Liya Blade size: #4 ETT size (mm): 8.0 Measured from: lips Measurement (cm): 23 Placement verified by: chest auscultation and capnometry Cormack-Lehane Classification: grade I - full view of glottis Number of attempts at approach: 1 Airway not difficult SIGNATURE: Janna Brown APRN.CRNA PATIENT NAME: Trey Figueroa DATE: March 24, 2023 TIME: 11:59 AM CSN: [id number] Instructions* Patient Instructions* Nena Diaz APRN.OCEANOGRAPHIC METEOROLOGIST - 03/21/2023 1:37 PM EDT PATIENT PREOPERATIVE INSTRUCTIONS Leroy Mancera MD has scheduled you for your procedure at this surgery center: [facility]: [phone] --[address] [place] [address]. On your scheduled day of surgery, please report to Patient Registration, ground floor Please read below carefully for your personalized instructions. Dietary Restrictions: - No solid food after midnight. - You may have 12 ounces of clear liquids (water, clear juices such as apple juice or gatorade, carbonated beverages, clear tea, black coffee, jello) until 2 hours before scheduled arrival at facility. Is Patient Diabetic:No Medications: Unless instructed differently below, stay on all of your medications until your surgery. Approved medications to take the morning of surgery with a sip of water: pantoprazole DR (PROTONIX) metoprolol tartrate, short acting, (LOPRESSOR) Ipratropium [place] (ATROVENT) FLOVENT HFA amLODIPine (NORVASC) amitriptyline (ELAVIL) albuterol HFA (PROVENTIL HFA, VENTOLIN HFA) - Your pain medication may cause thinning of your blood. Please see directions for Blood Thinning Medications. If you take any medications for erectile dysfunction-Cialis (Tadalafil), Levitra, Staxyn (Vardenafil) Viagra (Sildenenafil please do not take these for 48 hours before surgery. If you start any new medications after today's visit, please contact the surgeon's office. Blood Thinning Medications: - Stop NSAIDS (Ibuprofen, Advil, Aleve, Motrin, Celebrex, Mobic, etc.) 7 days before surgery, as directed by your surgeon. - Stop Aspirin 7 days before surgery, as directed by your surgeon. - Stop Vitamin E, ALL multi-vitamins, herbals and dietary supplements 7 days before surgery. - You may take Tylenol (Acetaminophen) or any of your pain medications that do not contain aspirin or NSAIDS as needed. Important Reminders: - If you are prescribed inhalers for breathing, continue using them. - Candy, mints, and tobacco products are NOT permitted the morning of surgery. - Hearing aids, dentures and glasses may be worn the morning of surgery. - NO jewelry, body piercings, makeup, hairpins or contacts are to be worn the day of surgery. If you develop symptoms such as a fever, cold, or flu, or have other changes to your health within TWO DAYS of scheduled surgery or the morning of surgery, please contact the surgery center above. Personal Belongings: -Please have photo ID and insurance cards. -If you do not have a copy of advance directives on file with us, please bring a copy with you on the day of surgery. - Leave ALL valuables and money at home or with family members. For Outpatient Procedures: - YOU MUST HAVE A RESPONSIBLE MATHEMATICIAN RESEARCH TAKE YOU HOME. A MACHINIST CLASS B OR PRIVACY OFFICER CANNOT BE MADE A RESPONSIBLE MATHEMATICIAN RESEARCH. - We recommend that a responsible person stays with you overnight to take care of you. - You cannot stay in a hotel alone after outpatient surgery. You will not be permitted to have yoursurgery, if you do not have someone to take care of you. Arrival Time for Surgery: - The Surgery Center or hospital where you are having surgery will call the afternoon before surgery (or Friday for Friday surgery) with a scheduled arrival time. - If you have not heard by 4 pm, please contact the surgery center above. Please be aware that emergency situations arise, which may delay or change your surgical time. If this happens, we will notify you as soon as possible and regret any inconvenience. If you already have an Advance Directive, please fax a copy to [phone] or email to for it to be added to your chart. If you do not have an Advance Directive, you can find the appropriate form and more information at [email or web address]. We recommend that youcomplete the Advance Directive form found on the website and bring it with you the day of your surgery. It can be witnessed and scanned into your chart that day. Nena Diaz APRN.CNP documented [facility] History and physical note * Nena Diaz APRN.CNP - 03/21/2023 11:42 AM EDT HISTORY AND PHYSICAL EXAMINATION SERVICE DATE: 03/21/2023 SERVICE TIME: 1:40 PM PRIMARY CARE PHYSICIAN: Yasir Aguirre MD REASON FOR VISIT: Trey Figueroa is a 72 year old male who is scheduled for Procedure(s): DECOMPRESSION LAMINECTOMY LUMBAR POSTERIOR LEVEL 1 (Bilateral) at the request of Dr. Leroy Mancera for consultation. My final recommendation will be communicated back to the requesting physician by way of shared medical record or letter. 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 Patient reports no prior COVID-19 infections. CHIEF COMPLAINT: right lower back pain HPI: 72 yo male with h/o right lower back pain for the past few months. Pain is constant. He c/o legs giving out on him. He has h/o previous back surgery in 2011 and 2005. REVIEW OF SYSTEMS: General: No weight loss, malaise or fevers. Neurological: Positive for: headaches. Respiratory: Positive for: asthma. Negative for: prior COVID-19 infection. Cardiovascular: Positive for: hyperlipidemia and hypertension GI: Positive for: GERD : Positive for: frequent urination. Endocrine: Positive for: diabetes mellitus. Hematology: Positive for: anemia. Oncology: No history of CA metastasis, chemo within 30 days, or radiotherapy within 90 days. No history of oncological symptoms or problems. Psych: No history of psychiatric symptoms or problems. Musculoskeletal: Positive for: back pain and joint pain. Skin: Negative for lesions, rash and itching. PAST MEDICAL HISTORY Diagnosis Date Asthma BPH (benign prostatic hyperplasia) GERD (gastroesophageal reflux disease) History of colonic polyps Other hyperlipidemia Paraplegia (HCC) Personal history of DVT (deep vein thrombosis) 03/21/2023 Primary hypertension Pseudophakia of left eye 02/04/2022 PAST SURGICAL HISTORY Procedure Laterality Date BACK SURGERY HX HAND SURGERY HX Left PAST SURGICAL HISTORY OF 02/17/2005 T10-T11 DISCECTOMY FUSION INST (MANCERA) REMV CATARACT EXTRACAP,INSERT LENS Left 01/14/2022 Aim -1.00 REMV CATARACT EXTRACAP,INSERT LENS Left 02/04/2022 AIM -1.00 FAMILY HISTORY Problem Relation Age of Onset No Ocular Disease Father No Ocular Disease Mother Cataract Maternal Grandfather Macular Degen Maternal Grandfather Social History Tobacco Use Smoking status: Former Types: Cigarettes Quit date: 12/23/1994 Years since quittin.2 Smokeless tobacco: Never Vaping Use Vaping Use: Never used Substance Use Topics Alcohol use: Never Drug use: Never Prior to Admission medications as of 03/21/23 1106 Medication Sig Last Dose Taking donepezil (ARICEPT) 10 mg tablet TAKE 1 TABLET BY MOUTH AT BEDTIME EVERY DAY Taking Yes tiZANidine (ZANAFLEX) 4 mg tablet TAKE ONE-HALF TO ONE TABLET BY MOUTH AT BEDTIME EVERY DAY Taking Yes oxybutynin (DITROPAN) 5 mg tablet Take 5 mg by mouth twice daily. Taking Yes naproxen (NAPROSYN) 500 mg tablet TAKE 1 TABLET BY MOUTH TWICE DAILY WITH FOOD OR MILK FOR 10 DAYS Taking Yes Ipratropium [place] (ATROVENT) 21 mcg (0.03 %) nasal spray Taking Yes insulin aspart U-100 (NOVOLOG) 100 unit/mL Inject 11 Units subcutaneously three times daily before meals. Taking Yes insulin glargine (LANTUS) 100 unit/mL injection Inject 40 Units subcutaneously daily at bedtime. Taking Yes atorvastatin (LIPITOR) 40 mg tablet Take 40 mg by mouth once daily. Taking Yes neomycin/polymyxin b/dexametha(MAXITROL 3.5 MG/G-10,000 UNIT/G-0.1 % EYE OINTMENT) right socket only four times a day for a week then twice daily x 1 week, then stop. Taking Yes traMADol (ULTRAM) 50 mg tablet Take by mouth. Taking Yes dutasteride (AVODART) 0.5 mg capsule 1 capsule Taking Yes pantoprazole DR (PROTONIX) 20 mg tablet Take 1 tablet by mouth. Taking Yes pravastatin (PRAVACHOL) 40 mg tablet 1 tablet Once a day Orally 90 days Taking Yes erythromycin (ROMYCIN) 5 mg/gram (0.5 %) ophthalmic ointment Use 1 application in the right eye twice daily. Taking Yes albuterol HFA (PROVENTIL HFA, VENTOLIN HFA) 90 mcg/actuation inhaler Inhale 2 Puffs as instructed every 4 hours as needed. Taking Yes ammonium lactate (LAC-HYDRIN) 12 % lotion Taking Yes aspirin 81 mg chewable tablet Take 81 mg by mouth once daily. Taking Yes dicyclomine (BENTYL) 20 mg tablet 1 tablet Taking Yes docusate sodium (COLACE) 100 mg capsule 1 capsule as needed Taking Yes enalapril (VASOTEC) 20 mg tablet Take 20 mg by mouth. Taking Yes FLOVENT HFA 110 mcg/actuation inhaler twice daily. Taking Yes hydroCHLOROthiazide (HYDRODIURIL, ESIDRIX) 25 mg tablet 1 tab Taking Yes hydrOXYzine pamoate (VISTARIL) 50 mg capsule TAKE 1 CAPSULE EVERY 8 HOURS Taking Yes losartan (COZAAR) 25 mg tablet Take 25 mg by mouth twice daily. Taking Yes metoprolol tartrate, short acting, (LOPRESSOR) 50 mg tablet Take 100 mg by mouth. Taking Yes nitroglycerin sublingual (NITROQUICK) 0.4 mg SL tablet Dissolve 0.4 mg under the tongue. Taking Yes terazosin (HYTRIN) 5 mg capsule Take 10 mg by mouth daily at bedtime. Taking Yes amLODIPine (NORVASC) 10 mg tablet Take 10 mg by mouth. Taking Yes amitriptyline (ELAVIL) 100 mg tablet Take 150 mg by mouth. Taking Yes amoxicillin-clavulanic acid (AUGMENTIN) 875-125 mg per tablet Take by mouth. Patient not taking: Reported on 03/21/2023 Not Taking cephALEXin (KEFLEX) 500 mg capsule TAKE 1 CAPSULE BY MOUTH EVERY 6 HOURS for 7 (SEVEN) days Patient not taking: Reported on 03/21/2023 Not Taking meloxicam (MOBIC) 15 mg tablet 1 tablet Patient not taking: Reported on 03/21/2023 Not Taking insulin regular human (NOVOLIN R,HUMULIN R) 100 unit/mL injection 45 units Patient not taking: Reported on 03/21/2023 Not Taking Lisinopril, Bulk, 100 % powd Take 10 mg by mouth. Medication Comments documented by Pretty Negrete MA on 12/15/2019 at 0949. Pt did not come with med list, coming from outside of clinic angie quevedo MA 12/15/19 ALLERGIES No Known Allergies Objective PHYSICAL EXAM: General: alert and oriented. Body mass index is 37.59 kg/m . . Skin: normal color, no rash or lesions. HEENT: Only has one eye with patch over it. Other, he lost playing football. . Cardiovascular: regular rate and rhythm, normal S1 and S2, no rub, murmurs, or gallop. Respiratory: normal breath sounds, no wheezes or crackles. No chest wall deformity or tenderness. Abdomen: bowel sounds present and soft. Pertinent negatives noted - not tender. Extremities: Positive for joint tenderness. Neurological: Positive for limb weakness. Limb weakness located left LE and right LE. PAIN ASSESSMENT: Pain Pain Level: 8 Pain Location: Back Description: Aching Duration Amount of Time: 4 Duration Units: Years Frequency: Intermittent VITALS: BP 122/74 Pulse 93 Temp 97.9 Resp 16 Ht 6' 5 (1.96m) Wt 317 lb (143.8kg) SpO2 98% BMI 37.58 kg/(m^2). Diagnostic tests reviewed for today's visit: Lab Value Units Date High Low HB 13.5 g/dL 03/21/2023 17.0 13.0 HCT 40.8 % 03/21/2023 51.0 39.0 WBC 6.63 k/uL 03/21/2023 11.00 3.70 PLT 256 k/uL 03/21/2023 400 150 NA No results within date range. K No results within date range. GLUC No results within date range. BUN No results within date range. CREAT No results within date range. PTSEC No results within date range. INR No results within date range. APTT No results within date range. ALT No results within date range. AST No results within date range. TBILI No results within date range. TSH No results within date range. Lab Value Units Date High Low HCGQT No results within date range. UHCG No results within date range. HCG, BODY* No results within date range. Lab Value Units Date High Low ABORHD No results within date range. ABSCREEN No results within date range. Hemoglobin A1C Date Value 02/12/2005 6.9 % 12/07/2004 6.8 % 01/11/2003 6.1 % OF T 09/23/2002 6.7 % OF T 08/13/2002 6.7 % OF T Recent Results (from the past 8760 hour(s)) ECG COMPLETE Collection Time: 03/21/23 11:18 AM Result Value Ventricular Rate 97 Atrial Rate 94 P-R Interval 198 QRS Duration 110 QT Interval 367 QTC Calculation (Bazett) 466 Calculated P Kaiser 19 Calculated R Kaiser -29 Calculated T Kaiser 98 Impression Sinus arrhythmia Inferior infarct, old Consider anterior infarct Abnormal ECG No results found for this or any previous visit (from the past 14221 hour(s)). Assessment There is no known pertinent medical condition which may affect alycia-operative course GERD (gastroesophageal reflux disease) Assessment: daily Protonix Type 2 diabetes mellitus without complication (HCC) Assessment: lantus @ bedtime, Novolog TID 11 units No recent hgbA1c in [facility] will check today. Other hyperlipidemia Assessment: takes lipitor daily. Essential hypertension Assessment: amlodipine, enalapril, HCTZ, Losartan, lopressor BP today: 122/74 Asthma Assessment: Flovent Rx'd BID, last used 3 days ago PRN albuterol last used 3 days ago. Benign prostatic hyperplasia with lower urinary tract symptoms Assessment: hytrin and avodart BMI 37.0-37.9, adult Assessment: Body mass index is 37.59 kg/m . Headaches Assessment: tylenol PRN, gets about 3 time a month. Personal history of DVT (deep vein thrombosis) Assessment: right UE Completed course of chemotherapy. [place] Activity Status Index: METS: DASI Score: 0 Patient is partially dependent (in wc, but can pivot to toilet). STOP-Bang Score: Has or is being treated for high blood pressure BMI greater than 35 kg/m^2 Patient over 50 years old Has a large neck Male patient Denies snoring loudly Denies feeling tired, fatigued, or sleepy during the daytime Has not been observed to stop breathing or choking/gasping during sleep STOP-Bang Score: 5 [id number] Score: Hypertension history: Yes Diabetes history: Yes [id number] Score: 2 ASA Class: 3 ANESTHESIA FINDINGS: Intubation History: No history of difficult intubation. No abnormal airway history Significant Anesthesia Considerations: none Airway History: No history of difficult airway No abnormal airway history I - PHYSICAL EVALUATION AIRWAY Patient intubated: No. Tracheostomy tube not present Mallampati: III. TM distance: >3 FB. Neck ROM: full ROM without neurological symptoms. Mouth opening: adequate. Short neck: no. Thick neck: yes Tesfaye present: no Lip Bite Test: I Microretrognathia/Micronagthia/Recessed Chin: No DENTAL Dentures, lower: partial. II - ANESTHESIA PLAN ASA Score: 3 Anesthetic plan additional comments: *PACC/TCI - anesthesia choice. Beta Moises Monitoring Plan Post Procedure Analgesic Plan Prepared for Surgery: optimally prepared for surgery, pending [see comment]. DOS exam Labs EKG CONSULTS: The following consults have been initiated at this time: anesthesia (to review EKG). Planned Anesthetic: anesthesia choice The Following Tests/Procedures Have Been Initiated: Orders Placed This Encounter CBC with Differential Standing Status: Future Number of Occurrences: 1 Standing Expiration Date: 05/21/2023 Comp Metabolic Panel Standing Status: Future Number of Occurrences: 1 Standing Expiration Date: 05/21/2023 HGB A1C Standing Status: Future Number of Occurrences: 1 Standing Expiration Date: 05/21/2023 Confirm Blood Type Standing Status: Future Number of Occurrences: 1 Standing Expiration Date: 05/21/2023 Order Specific Question: Did Blood Bank direct you to place this order: Answer: No - Presurgical Workflow Type and Screen, 30 day Standing Status: Future Number of Occurrences: 1 Standing Expiration Date: 05/21/2023 donepezil (ARICEPT) 10 mg tablet Sig: TAKE 1 TABLET BY MOUTH AT BEDTIME EVERY DAY tiZANidine (ZANAFLEX) 4 mg tablet Sig: TAKE ONE-HALF TO ONE TABLET BY MOUTH AT BEDTIME EVERY DAY oxybutynin (DITROPAN) 5 mg tablet Sig: Take 5 mg by mouth twice daily. naproxen (NAPROSYN) 500 mg tablet Sig: TAKE 1 TABLET BY MOUTH TWICE DAILY WITH FOOD OR MILK FOR 10 DAYS ECG COMPLETE Standing Status: Future Standing Expiration Date: 03/21/2024 Instructions Given to Patient: Instructions located in the after visit summary. Patient given verbal and written preop instructions and voices comprehension and compliance. SIGNATURE: Nena Diaz APRN.CNP PATIENT NAME: Trey Figueroa DATE: March 21, 2023 TIME: 11:42 AM PAGER/CONTACT #: documented in this [facility]04-[facility]23 Miscellaneous Notes* Telephone Encounter - Louis Mallory RN - 03/19/2023 3:17 PM EDT Neuro SPINE CARE COORDINATION QUICK NOTE Spoke with patient who is awae arrival time is now 9 am per surgery center. * Telephone Encounter - Louis Mallory RN - 03/19/2023 11:58 AM EDT Neuro SPINE CARE COORDINATION QUICK NOTE Spoke with patient and a request for a later start time was sent to the surgery center. * Telephone Encounter - Pretty Way - 03/19/2023 11:40 AM EDT Patient is calling in due to surgery arrival time being to early for him. He would like to speak with the nurse about this matter. Ph. [phone] documented in this encounterCl[facility]04-17-2023 NoteHNO ID: [id number] Author: Brenda L Araceli, OD Service: ? Author Type: HAT STEAMER Type: Progress Notes Filed: 03/18/2023 8:42 AM Note Text: ASSESSMENT/PLAN: 1. PCO (posterior capsular opacification), left - ICD9: 366.50, ICD10: H26.492 (primary diagnosis) Pt educated. Recommend yag with AH next available. Hold spec Rx for now, recommend +1.50 OTC reading glasses. 2. Pseudophakia, left eye - ICD9: V43.1, ICD10: Z96.1 3. Type 2 diabetes mellitus without retinopathy (HCC) - ICD9: 250.00, ICD10: E11.9 - Controlled - Continue current medications Encouraged tight blood sugar control. Diabetes carries risk of vision loss if not properly managed. Monitor yearly. 4. History of enucleation of right eyeball - ICD9: V45.78, ICD10: Z90.01 List of local ocularists given Brenda Charles, OD I have confirmed and edited as necessary the relevant ophthalmic history, ROS, and the exam findings as obtained by others. I have seen and examined this patient. I have discussed the case and the management of this patient's care with the resident or fellow as appropriate. I also have reviewed and agree with the assessment and plan as stated above and agree with all of its relevant components. Brenda Charles, OD March 17, 2023 1:26 [facility] [place]04-17-2023 Miscellaneous Notes* Telephone Encounter - Louis Mallory RN - 03/17/2023 1:07 PM EDT Neuro SPINE CARE COORDINATION QUICK NOTE Spoke with [facility] and answered all questions. * Telephone Encounter - Felisa Hilario - 03/17/2023 12:01 PM EDT Zenaida is calling from [facility] and she is trying to set up transportation to bring the patient for surgery. She needs to know what time the surgery and if someone needs to be with him. Call back # [phone] [facility] Miscellaneous Notes* Telephone Encounter - Louis Mallory RN - 03/14/2023 4:14 PM EDT Neuro SPINE CARE COORDINATION QUICK NOTE Spoke with [facility] pulling machine operator who states she was told the procedure was cancelled, it is NOT. Schedulerwill reach out to patient to schedule [facility] appointment * Telephone Encounter - Manju Bazzi - 03/14/2023 3:51 PM EDT I'm not sure why they would send him back to us either. I asked him did he want me to give him the number or did he get your vm, I then transferred him to that number and they sent him back and told him he needed to speak to you. * Telephone Encounter - Manju Bazzi - 03/14/2023 2:47 PM EDT Pt called back and stated the phone number that was left for him to call, they told him that he needed to speak to Monika to reschedule the appts. Pt was very frustrated and needs these appts rescheduled 03/18/23 Pre anes and he needs transportation 03/25- Didn't say what this appt was and I didn't see it cxld, but he stated it needed rescheduled. Please call [phone] * Telephone Encounter - Louis Mallory RN - 03/14/2023 11:22 AM EDT Neuro SPINE CARE COORDINATION QUICK NOTE Attempted to return patient call. Verified full name on voicemail. Left message to call [facility] schedulers at: [facility] scheduling #[phone] * Telephone Encounter - Stephanie Burger [facility] - 03/14/2023 9:35 AM EDT Patient called; states he thought his transportation had been cancelled for upcoming pre-ops and surgery w/Dr. Mancera so he canceled these appts; patient states that he now has transportation and is asking if appts can be rescheduled; requesting call back; . [phone] [facility] Progress note Author Braulio Hauser [facility] February 13, 2023 10:12am Note Date/Time February 13, 2023 10: 12am [facility] [address] [place] [address] Wound Center Provider Note Signed Patient: Trey Figueroa Sr MR#: [id number] : 1950 Acct:[id number] Age/Sex: 72 / M Copies to: [facility] Braulio Hauser DPM~ HPI Date of Visit Date of Visit: Date of Service: 02/13/2023 Time of Service: 10:06 Narrative HPI: This is a 72-year-old male who returns to the wound care clinic with a concern of areas on both of his feet. Patient states that a few weeks ago he noticed some blood coming from his toe was. Patient had an appointment for last week but was not unable to make it due to transportation issues. Patient denies any current history of nausea, vomiting, fever or chills. Patient states that he has noticed that the bleeding has stopped. Patient has no complaints of pain with his feet. Subjective Pain Right Foot: Pain Description: Intermittent Pain Intensity: 0 Pain Management Techniques Other/Comment: it hurt last week but it does not now Wound/Ulcer History When did wound start?: January 2023 Right foot ulcer Mode of Arrival/ Electronic Security Specialist: W/C jeremy Assistive Device Used Today: Wheelchair Lives with:: Alone Appetite Description: Within Normal Limits Smoking Status: Former smoker [facility] Medical History (Updated 02/13/23 @ 10:10 by Braulio Hauser DPM) Acid reflux Arrhythmia Asthma Blood clot of artery under arm Colon polyp Crush injury to thumb bone grafting done Diabetes High blood cholesterol Hypertension Neuropathy Pain in right foot Paralysis [id number] Right foot ulcer Shingles Surgical History H/O elbow surgery lt H/O eye surgery rt H/O hand surgery lt Previous back surgery x 2 Family History Mother Diabetes father had DM mother did not Social History Smoking Status: Former smoker Tobacco Type: cigarettes Substance Use Type: None Substance Abuse Comment: Quit alcohol and tobacco 37 years ago Social History Comments: nephew Grafts History of Graft History of Graft?: No Exam Physical Exam Vital Signs: Temp Pulse Resp BP O2 Del Method 97.8 F 78 20 115/68 Room Air 02/13/23 09:54 02/13/23 09:54 02/13/23 09:54 02/13/23 09:54 02/13/23 09:54 Lower/Upper Extremity Exam Vascular Exam-Edema Right Foot: Edema Type: None Vascular Exam-Pulses Left Brachial: Pulse Assessment Method: NIBP Objective Meds/Allergies Home Medications amlodipine 10 mg tablet (Norvasc) 10 mg PO DAILY 11/15/19 [History Confirmed 02/13/23] hydroxyzine pamoate 50 mg capsule (Vistaril) 50 mg PO TID PRN HIVES 11/15/19 [History Confirmed 02/13/23] aspirin 81 mg chewable tablet 81 mg PO DAILY 12/22/19 [History Confirmed 02/13/23] dicyclomine 20 mg tablet 20 mg PO TID 12/22/19 [History Confirmed 02/13/23] hydrochlorothiazide 25 mg tablet 25 mg PO DAILY 12/22/19 [History Confirmed 02/13/23] losartan 25 mg tablet 25 mg PO DAILY 12/22/19 [History Confirmed 02/13/23] terazosin 5 mg capsule 20 mg PO QHS 12/22/19 [History Confirmed 02/13/23] albuterol sulfate 90 mcg/actuation aerosol inhaler 1 puff inhalation Q4H PRN Wheezing 02/19/21 [History Confirmed 02/13/23] amitriptyline 150 mg tablet 150 mg PO DAILY 02/19/21 [History Confirmed 02/13/23] ammonium lactate 12 % lotion 1 applic topical BID 02/19/21 [History Confirmed 02/13/23] docusate sodium 100 mg capsule (Colace) 100 mg PO DAILY 02/19/21 [History Confirmed 02/13/23] dutasteride 0.5 mg capsule 0.5 mg PO DAILY 02/19/21 [History Confirmed 02/13/23] fluticasone propionate 110 mcg/actuation HFA aerosol inhaler 1 puff inhalation Q12H 02/19/21 [History Confirmed 02/13/23] insulin glargine 100 unit/mL subcutaneous solution (Lantus U-100 Insulin) 45 unit subcut QHS 02/19/21 [History Confirmed 02/13/23] insulin lispro 100 unit/mL subcutaneous solution (Humalog U-100 Insulin) 11 unitsubcut ACHS 02/19/21 [History Confirmed 02/13/23] metoprolol tartrate 100 mg tablet 100 mg PO DAILY 02/19/21 [History Confirmed 02/13/23] nitroglycerin 0.4 mg sublingual tablet 0.4 mg sublingual Q5-15MIN PRN Chest Pain02/19/21 [History Confirmed 02/13/23] atorvastatin 40 mg tablet 40 mg PO DAILY #30 tabs 11/11/21 [Rx Confirmed 02/13/23] miconazole nitrate 2 % topical cream 1 applic topical BID 5 days #30 grams 06/09/22 [Rx Confirmed 02/13/23] donepezil 10 mg tablet 10 mg PO DAILY 08/11/22 [History Confirmed 02/13/23] meloxicam 15 mg tablet 15 mg PO DAILY 08/11/22 [History Confirmed 02/13/23] hydrocodone 5 mg-acetaminophen 325 mg tablet 1 tab PO Q6H PRN pain 3 days #12 tabs 08/15/22 [Rx Confirmed 02/13/23] tramadol 50 mg tablet 50 mg PO Q8H PRN pain 3 days #9 tabs 09/05/22 [Rx Confirmed 02/13/23] pantoprazole 40 mg tablet,delayed release 40 mg PO BID #60 tabs 01/01/23 [Rx Confirmed 02/13/23] Allergies No Known Allergies Allergy (Verified 09/24/22 23:31) Wound/Ulcer Right Foot: Bed Appearance: Beefy Red, Dried Exudate and [place] Percent of Wound Bed Granulated/Red: 90 Percent of Devitalized: 10 Length (cm): 0.2 Width (cm): 0.2 Depth (cm): 0.1 CM Sq: 0.040 Surrounding Tissue Appearance: Hyperpigmented Surrounding Tissue Temp: Warm Drainage Amount: Scant Drainage Description: Serosanguineous Drainage Odor: No Odor Results Height: 6 ft Weight: 317 lb Body Mass Index: 43.0 Assessment/Plan Assessment/Plan (1) Diabetes mellitus due to underlying condition, controlled, with diabetic neuropathy: Code(s): E08.40 - Diabetes mellitus due to underlying condition with diabetic neuropathy,unspecified Status: Chronic (2) ISTAP type 1 skin tear of right lower extremity: Code(s): S81.811A - Laceration without foreign body, right lower leg, initial encounter Status: Acute Plan: I explained to the patient after doing the exam of his shoes that on the right shoe where the skin tear was located he had a sock wedged in the distal aspect of this toe box of his shoe. I remove the sock. This may have been what was causing his toes the bunch in shoe which pushed his toe his foot upward in the shoe which allowed for it to have a skin tear. We will have him apply SilvaSorband a Band-Aid to the area daily until healed. All other areas on the foot appear to be scabbed with no evidence of ulceration, maceration, fissuring or open area. Patient is reappoint as needed. I explained to the patient that before he puts his shoes on he is always to check the inside of the shoe to makesure nothing has been pushed or fallen into the shoe. I spent a total of 24 minutes in the evaluation and treatment of this patient. I dispensed to [employer]crest pads 1 for the right foot and left foot to wear underneath his toes to elevate his toes so that no calluses will form. Time spent with patient Time Spent With Patient (min): 24 Dictated By: Braulio Hauser DPM DD/ 1006 Signed By: <Electronically signed by SANJU Hauser> 02/13/23 1012 [facility] Work Phone: 1(809) 174-276703-15-2023 Note [id number]:127[facility] 01-13-2023 Hospital Discharge instructions Patient Education 01/13/2023 13:31:43 Urinary Incontinence Urinary Incontinence Urinary incontinence refers to a condition in which a person is unable to control where and when topass urine. A person with this condition will urinate when he or she does not mean to (involuntarily). What are the causes? This condition may be caused by: Medicines. Infections. Constipation. Overactive bladder muscles. Weak bladder muscles. Weak pelvic floor muscles. These muscles provide support for the bladder, intestine, and, in women,the uterus. Enlarged prostate in men. The prostate is a gland near the bladder. When it gets too big, it can pinch the urethra. With the urethra blocked, the bladder can weaken and lose the ability to empty properly. Surgery. Emotional factors, such as anxiety, stress, or post-traumatic stress disorder (PTSD). Pelvic organ prolapse. This happens in women when organs shift out of place and into the vagina. This shift can prevent the bladder and urethra from working properly. What increases the risk? The following factors may make you more likely to develop this condition: Older age. Obesity and physical inactivity. and childbirth. Menopause. Diseases that affect the nerves or spinal cord (neurological diseases). Long-term (chronic) coughing. This can increase pressure on the bladder and pelvic floor muscles. What are the signs or symptoms? Symptoms may vary depending on the type of urinary incontinence you have. They include: A sudden urge to urinate, but passing urine involuntarily before you can get to a bathroom (urge incontinence). Suddenly passing urine with any activity that forces urine to pass, such as coughing, laughing, exercise, or sneezing (stress incontinence). Needing to urinate often, but urinating only a small amount, or constantly dribbling urine (overflow incontinence). Urinating because you cannot get to the bathroom in time due to a physical disability, such as arthritis or injury, or communication and thinking problems, such as Alzheimer disease (functional incontinence). How is this diagnosed? This condition may be diagnosed based on: Your medical history. A physical exam. Tests, such as: ?Urine tests. ?X-rays of your kidney and bladder. ?Ultrasound. ?CT scan. ?Cystoscopy. In this procedure, a health care provider inserts a tube with a light and camera (cystoscope) through the urethra and into the bladder in order to check for problems. ?Urodynamic testing. These tests assess how well the bladder, urethra, and sphincter can store and release urine. There are different types of urodynamic tests, and they vary depending on what the test is measuring. To help diagnose your condition, your health care provider may recommend that you keep a log of when you urinate and how much you urinate. How is this treated? Treatment for this condition depends on the type of incontinence that you have and its cause. Treatment may include: Lifestyle changes, such as: ?Quitting smoking. ?Maintaining a healthy weight. ?Staying active. Try to get 150 minutes of moderate-intensity exercise every week. Ask your health care provider which activities are safe for you. ?Eating a healthy diet. ?Avoid high-fat foods, like fried foods. ?Avoid refined carbohydrates like white bread and white rice. ?Limit how much alcohol and caffeine you drink. ?Increase your fiber intake. Foods such as fresh fruits, vegetables, beans, and whole grains are healthy sources of fiber. Pelvic floor muscle exercises. Bladder training, such as lengthening the amount of time between bathroom breaks, or using the bathroom at regular intervals. Using techniques to suppress bladder urges. This can include distraction techniques or controlled breathing exercises. Medicines to relax the bladder muscles and prevent bladder spasms. Medicines to help slow or prevent the growth of a man's prostate. Botox injections. These can help relax the bladder muscles. Using pulses of electricity to help change bladder reflexes (electrical nerve stimulation). For women, using a medical administrator to prevent urine leaks. This is a small, tampon-like, disposable device that is inserted into the urethra. Injecting collagen or carbon beads (bulking agents) into the urinary sphincter. These can help thicken tissue and close the bladder opening. Surgery. Follow these instructions at home: Lifestyle Limit alcohol and caffeine. These can fill your bladder quickly and irritate it. Keep yourself clean to help prevent odors and skin damage. Ask your doctor about special skin creams and cleansers that can protect the skin from urine. Consider wearing pads or adult diapers. Make sure to change them regularly, and always change them right after experiencing incontinence. General instructions Take [id number]-[id number] and prescription medicines only as told by your health care provider. Use the bathroom about every 3 4 hours, even if you do not feel the need to urinate. Try to empty your bladder completely every time. After urinating, wait a minute. Then try to urinate again. Make sure you are in a relaxed position while urinating. If your incontinence is caused by nerve problems, keep a log of the medicines you take and the times you go to the bathroom. Keep all follow-up visits as told by your health care provider. This is important. Contact a health care provider if: You have pain that gets worse. Your incontinence gets worse. Get help right away if: You have a fever or chills. You are unable to urinate. You have redness in your groin area or down your legs. Summary Urinary incontinence refers to a condition in which a person is unable to control where and when topass urine. This condition may be caused by medicines, infection, weak bladder muscles, weak pelvic floor muscles, enlargement of the prostate (in men), or surgery. The following factors increase your risk for developing this condition: older age, obesity, and childbirth, menopause, neurological diseases, and chronic coughing. There are several types of urinary incontinence. They include urge incontinence, stress incontinence, overflow incontinence, and functional incontinence. This condition is usually treated first with lifestyle and behavioral changes, such as quitting smoking, eating a healthier diet, and doing regular pelvic floor exercises. Other treatment options include medicines, bulking agents, medical devices, electrical nerve stimulation, or surgery. This information is not intended to replace advice given to you by your health care provider. Make sure you discuss any questions you have with your health care provider. Document Released: 12/25/2005 Document Revised: 11/27/2018 Document Reviewed: 02/26/2018 [employer] Patient Education 2020 [employer] Follow Up Care 12/06/2022 14:52:57 With:RHIANNON CHARLES, Daniel Mcelroy, URL Address: [address] [place], [place] [id number]- When: Unknown [facility] 12-28-2022 NoteHNO ID: [id number] Author: Leroy Mancera MD Service: ? Author Type: Physician Type: Progress Notes Filed: 11/27/2022 3:00 PM Note Text: Trey is seen for the first time since 2004. After his thoracic discectomy he did reasonably well from many years. Approximately 7 years ago for symptoms of neurogenic claudication he underwent an L3 laminectomy. Because of a number of problems including issues with his feet as well as issues with his back he is minimally ambulatory around the house. He presents today complaining of activity related axial back pain bilateral leg pain radiating in an L4 or 5 distribution and occasional painless giving way of his legs leading to several falls. Imaging investigation shows severe circumferential stenosis at L4-5. He has a laminectomy defect at L3. He underwent a caudal epidural injection which gave him excellent relief of his symptoms for a few days. Given the presence of epidural scarring from the L3 laminectomy it is unlikely that he had significant medication reaching higher than that level which would confirm that the L4-5 level is most likely his symptomatic level. I think this gentleman would benefit from an L4-5 bilateral laminotomy and foraminotomies. We had a detailed discussion of the risks, benefits, expected outcomes, options and personnel today. He wishes to proceed. Leroy Mancera MDSycamore Medical [id number] NoteHNO ID: [id number] Author: Leroy Mancera MD Service: ? Author Type: Physician Type: Progress Notes Filed: 11/27/2022 3:00 PM Note Text: SPINE SURGERY NEW PATIENT This is an in-person visit. PCP: Conchis Beckwith DO REFERRING PROVIDER: Alicia Izaguirre MD SUBJECTIVE HISTORY OF PRESENT ILLNESS: Trey Figueroa is a 72 year old male presenting alone. CHIEF COMPLAINT: Back pain, b/l leg pain PRECIPITATING EVENT: None DURATION OF SYMPTOMS: Greater Than 3 Months Trey is presenting with back and leg pain. He is minimally ambulatory at baseline. His back pain worsened about 3-4 months ago. Similarly, he developed L < R leg pain in L5 distribution. He had an injection (Caudal) that provided mild relief for 14 days. HE also feels his legs are giving out on him more frequently lately. Denies new bowel/bladder issues (baseline incontinence stable for multiple years) PAIN EVALUATION 11/27/2022 1422 Pain Level: 7 Pain Location: Back-Lower Duration Amount of Time: 10 Duration Units: Years Frequency: Continuous Intervention/Comfort measure: Medication Pain Radiation: down the right and left thigh, below the left knee, and to the left foot/feet Aggravating Factors: Walking Alleviating Factors: None Pain Ratio: Pain in the back is greater than in the leg DERMATOMAL DISTRIBUTION: Right: L4 and L5 Left: L4 and L5 AMBULATORY STATUS: Minimal Ambulation/Wheelchair Bound ANTIPLATELET OR ANTICOAGULATION STATUS: Yes ASA81 PREVIOUS CONSERVATIVE TREATMENTS: RX NSAIDS for 3 Months or Greater (meloxicam (Mobic)) Analgesics Injections: MAHESH: lumbar- caudal(date(s): 08/28/22) Membrane Stabilizers PREVIOUS SPINAL SURGERY: SURGERY #1: Anterior retropleural T10-T11 diskectomy and fusion with instrumentation ([facility], 01/2005) SURGERY #2: L3-4 decompression ([facility], ~ 7 years ago) ACTIVE PROBLEM LIST Spinal Stenosis, 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 Neurogenic Claudication Type 2 Diabetes Mellitus Without Complication (Hcc) Chcf Current Use of Insulin (Hcc) Chronic Pain Essential Hypertension Moderate Persistent Asthma, Uncomplicated History of Colonic Polyps Constipation Cellulitis and Abscess of Unspecified Site Benign Prostatic Hyperplasia With Lower Urinary Tract Symptoms Asthma Leg Swelling 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 Lumbar Spondylosis Gerd (Gastroesophageal Reflux Disease) Paraplegia (Hcc) Other Hyperlipidemia Neurogenic Claudication Due to Lumbar Spinal Stenosis Radiculitis, Lumbosacral Urinary Incontinence History of Spinal Cord Injury Cauda Equina Syndrome (Hcc) PAST MEDICAL HISTORY Diagnosis Date Asthma BPH (benign prostatic hyperplasia) GERD (gastroesophageal reflux disease) History of colonic polyps Other hyperlipidemia Paraplegia (HCC) Primary hypertension Pseudophakia of left eye 02/04/2022 PAST SURGICAL HISTORY Procedure Laterality Date BACK SURGERY HX HAND SURGERY HX Left PAST SURGICAL HISTORY OF 02/17/2005 T10-T11 DISCECTOMY FUSION INST ([facility]) REMV CATARACT EXTRACAP,INSERT LENS Left 01/14/2022 Aim -1.00 REMV CATARACT EXTRACAP,INSERT LENS Left 02/04/2022 AIM -1.00 FAMILY HISTORY Problem Relation Age of Onset No Ocular Disease Father No Ocular Disease Mother Cataract Maternal Grandfather Macular Degen Maternal Grandfather Social History Tobacco Use Smoking status: Former Types: Cigarettes Quit date: 12/23/1994 Years since quittin.9 Smokeless tobacco: Never Vaping Use Vaping Use: Never used Substance Use Topics Alcohol use: Never Drug use: Never ALLERGIES No Known Allergies MEDICATIONS: Ipratropium [place] (ATROVENT) 21 mcg (0.03 %) nasal spray insulin aspart U-100 (NOVOLOG) 100 unit/mL Inject subcutaneously. amoxicillin-clavulanic acid (AUGMENTIN) 875-125 mg per tablet Take by mouth. insulin glargine (LANTUS) 100 unit/mL injection Inject subcutaneously. atorvastatin (LIPITOR) 40 mg tablet Take 40 mg by mouth once daily. cephALEXin (KEFLEX) 500 mg capsule TAKE 1 CAPSULE BY MOUTH EVERY 6 HOURS for 7 (SEVEN) days neomycin/polymyxin b/dexametha(MAXITROL 3.5 MG/G-10,000 UNIT/G-0.1 % EYE OINTMENT) right socket only four times a day for a week then twice daily x 1 week, then stop. traMADol (ULTRAM) 50 mg tablet Take by mouth. dutasteride (AVODART) 0.5 mg capsule [address] (PROTONIX) 20 mg tablet Take 1 tablet by mouth. pravastatin (PRAVACHOL) 40 mg tablet 1 tablet Once a day Orally 90 days erythromycin (ROMYCIN) 5 mg/gram (0.5 %) ophthalmic ointment Use 1 application in the right eye twice daily. meloxicam (MOBIC) 15 mg tablet 1 tablet albuterol HFA (PROVENTIL HFA, VENTOLIN HFA) 90 mcg/actuation inhaler Inhale 2 Puffs as instructed every 4 hours as needed. ammonium lactate (LAC-HYDRIN) 12 % lotion aspirin 81 mg chewable tablet Take 81 mg by mouth once daily. dicyclom (more content not included)...[facility] [id number] History of Present illness Narrative* Leroy Mancera MD - 11/27/2022 2:56 PM EST Trey is seen for the first time since 2004. After his thoracic discectomy he did reasonably well from many years. Approximately 7 years ago for symptoms of neurogenic claudication he underwent an L3 laminectomy. Because of a number of problems including issues with his feet as well as issues withhis back he is minimally ambulatory around the house. He presents today complaining of activity related axial back pain bilateral leg pain radiating in an L4 or 5 distribution and occasional painlessgiving way of his legs leading to several falls. Imaging investigation shows severe circumferential stenosis at L4-5. He has a laminectomy defect atL3. He underwent a caudal epidural injection which gave him excellent relief of his symptoms for a few days. Given the presence of epidural scarring from the L3 laminectomy it is unlikely that he hadsignificant medication reaching higher than that level which would confirm that the L4-5 level is most likely his symptomatic level. I think this gentleman would benefit from an L4-5 bilateral laminotomy and foraminotomies. We had adetailed discussion of the risks, benefits, expected outcomes, options and personnel today. He wishes to proceed. Leroy Mancera MD * Leroy Mancera MD - 11/27/2022 2:17 PM EST SPINE SURGERY NEW PATIENT This is an in-person visit. PCP: Conchis Beckwith DO REFERRING PROVIDER: Alicia Izaguirre MD SUBJECTIVE HISTORY OF PRESENT ILLNESS: Trey Figueroa is a 72 year old male presenting alone. CHIEF COMPLAINT: Back pain, b/l leg pain PRECIPITATING EVENT: None DURATION OF SYMPTOMS: Greater Than 3 Months Trey is presenting with back and leg pain. He is minimally ambulatory at baseline. His back pain worsened about 3-4 months ago. Similarly, he developed L < R leg pain in L5 distribution. He had an injection (Caudal) that provided mild relief for 14 days. HE also feels his legs are giving out on him more frequently lately. Denies new bowel/bladder issues (baseline incontinence stable for multi ple years) PAIN EVALUATION 11/27/2022 1422 Pain Level: 7 Pain Location: Back-Lower Duration Amount of Time: 10 Duration Units: Years Frequency: Continuous Intervention/Comfort measure: Medication Pain Radiation: down the right and left thigh, below the left knee, and to the left foot/feet Aggravating Factors: Walking Alleviating Factors: None Pain Ratio: Pain in the back is greater than in the leg DERMATOMAL DISTRIBUTION: Right: L4 and L5 Left: L4 and L5 AMBULATORY STATUS: Minimal Ambulation/Wheelchair Bound ANTIPLATELET OR ANTICOAGULATION STATUS: Yes [id number] PREVIOUS CONSERVATIVE TREATMENTS: RX NSAIDS for 3 Months or Greater (meloxicam (Mobic)) Analgesics Injections: MAHESH: lumbar- caudal(date(s): 08/28/22) Membrane Stabilizers PREVIOUS SPINAL SURGERY: SURGERY #1: Anterior retropleural T10-T11 diskectomy and fusion with instrumentation ([facility], 01/2005) SURGERY #2: L3-4 decompression ([facility], ~ 7 years ago) ACTIVE PROBLEM LIST Spinal Stenosis, 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 Neurogenic Claudication Type 2 Diabetes Mellitus Without Complication (Hcc) 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 Current Use of Insulin (Hcc) Chronic Pain Essential Hypertension Moderate Persistent Asthma, Uncomplicated History of Colonic Polyps Constipation Cellulitis and Abscess of Unspecified Site Benign Prostatic Hyperplasia With Lower Urinary Tract Symptoms Asthma Leg Swelling 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 Lumbar Spondylosis Gerd (Gastroesophageal Reflux Disease) Paraplegia (Hcc) Other Hyperlipidemia Neurogenic Claudication Due to Lumbar Spinal Stenosis Radiculitis, Lumbosacral Urinary Incontinence History of Spinal Cord Injury Cauda Equina Syndrome (Hcc) PAST MEDICAL HISTORY Diagnosis Date Asthma BPH (benign prostatic hyperplasia) GERD (gastroesophageal reflux disease) History of colonic polyps Other hyperlipidemia Paraplegia (HCC) Primary hypertension Pseudophakia of left eye 02/04/2022 PAST SURGICAL HISTORY Procedure Laterality Date BACK SURGERY HX HAND SURGERY HX Left PAST SURGICAL HISTORY OF 02/17/2005 T10-T11 DISCECTOMY FUSION INST ([facility]) REMV CATARACT EXTRACAP,INSERT LENS Left 01/14/2022 Aim -1.00 REMV CATARACT EXTRACAP,INSERT LENS Left 02/04/2022 AIM -1.00 FAMILY HISTORY Problem Relation Age of Onset No Ocular Disease Father No Ocular Disease Mother Cataract Maternal Grandfather Macular Degen Maternal Grandfather Social History Tobacco Use Smoking status: Former Types: Cigarettes Quit date: 12/23/1994 Years since quittin.9 Smokeless tobacco: Never Vaping Use Vaping Use: Never used Substance Use Topics Alcohol use: Never Drug use: Never ALLERGIES No Known Allergies MEDICATIONS: Ipratropium [place] (ATROVENT) 21 mcg (0.03 %) nasal spray insulin aspart U-100 (NOVOLOG) 100 unit/mL Inject subcutaneously. amoxicillin-clavulanic acid (AUGMENTIN) 875-125 mg per tablet Take by mouth. insulin glargine (LANTUS) 100 unit/mL injection Inject subcutaneously. atorvastatin (LIPITOR) 40 mg tablet Take 40 mg by mouth once daily. cephALEXin (KEFLEX) 500 mg capsule TAKE 1 CAPSULE BY MOUTH EVERY 6 HOURS for 7 (SEVEN) days neomycin/polymyxin b/dexametha(MAXITROL 3.5 MG/G-10,000 UNIT/G-0.1 % EYE OINTMENT) right socket only four times a day for a week then twice daily x 1 week, then stop. traMADol (ULTRAM) 50 mg tablet Take by mouth. dutasteride (AVODART) 0.5 mg capsule [address] (PROTONIX) 20 mg tablet Take 1 tablet by mouth. pravastatin (PRAVACHOL) 40 mg tablet 1 tablet Once a day Orally 90 days erythromycin (ROMYCIN) 5 mg/gram (0.5 %) ophthalmic ointment Use 1 application in the right eye twice daily. meloxicam (MOBIC) 15 mg tablet 1 tablet albuterol HFA (PROVENTIL HFA, VENTOLIN HFA) 90 mcg/actuation inhaler Inhale 2 Puffs as instructed every 4 hours as needed. ammonium lactate (LAC-HYDRIN) 12 % lotion aspirin 81 mg chewable tablet Take 81 mg by mouth once daily. dicyclomine (BENTYL) 20 mg tablet 1 tablet docusate sodium (COLACE) 100 mg capsule 1 capsule as needed enalapril (VASOTEC) 20 mg tablet Take 20 mg by mouth. FLOVENT HFA 110 mcg/actuation inhaler twice daily. hydroCHLOROthiazide (HYDRODIURIL, ESIDRIX) 25 mg tablet 1 tab hydrOXYzine pamoate (VISTARIL) 50 mg capsule TAKE 1 CAPSULE EVERY 8 HOURS insulin regular human (NOVOLIN R,HUMULIN R) 100 unit/mL injection 45 units losartan (COZAAR) 25 mg tablet Take 25 mg by mouth twice daily. metoprolol tartrate, short acting, (LOPRESSOR) 50 mg tablet Take 100 mg by mouth. nitroglycerin sublingual (NITROQUICK) 0.4 mg SL tablet Dissolve 0.4 mg under the tongue. terazosin (HYTRIN) 5 mg capsule Take 10 mg by mouth daily at bedtime. Lisinopril, Bulk, 100 % powd Take 10 mg by mouth. amLODIPine (NORVASC) 10 mg tablet Take 10 mg by mouth. amitriptyline (ELAVIL) 100 mg tablet Take 150 mg by mouth. REVIEW OF SYSTEMS: GENERAL: No weight loss or malaise MUSCULOSKELETAL: Negative for joint pain, swelling or muscle pain NEURO: No history of headaches, syncope, paralysis, seizures or tremors Patient Entered Questionnaires Spine Questions 12/15/2019 Pain Location: Lower back Pain Duration: 1 to 5 years Pain over last 6 months: Every day or nearly every day in the past 6 months Symptoms from neck/cervical spine: Yes Employment Status: Disabled due to back pain, permanently or temporarily Off work 1 month or more due to back/neck pain: Yes Applied for/receive disability/WC due to low back/neck pain Yes Involved in law suit/legal claim: No Spine Red Flags 12/15/2019 Any type of cancer: No Unexplained fever: No Bowel or bladder disfunction: Yes Unintentional weight loss: Yes Osteoporosis: No Neck Questionnaires 12/15/2019 Benzel Modified GERDA Score 3 (A lower score indicates increased pain and issues.) Low Back Pain Questionnaires 12/15/2019 STarT Risk Score 5 (High risk for prolonged disability) STarT Distress Score 5 STarT Total Score 9 KIRSTY Score 40 (Moderate disability) PROMIS Score Percentiles Physical Health 12/15/2019 Physical Function Percentile 0 Sleep Percentile 4 Fatigue Percentile 4 Pain Interference Percentile 1 PROMIS SOCIAL ROLE SCORE 12/15/2019 Social Role Satisfaction Percentile 8 PROMIS Global Health Scale 12/15/2019 Physical Health Percentile 2 Mental Health Percentile 19* Percentiles provide an indication of how the patient's score ranks in relation to the general population. Higher percentile rankings indicate better function/quality of life. 50th percentile is the average of the general population and indicates half of respondents had a worse score. Depression Screening: PHQ-9 12/15/2019 Score 19 PHQ-9 Self-harm Question 12/15/2019 Thoughts that you would be better off , or of hurting yourself in some way 0 PHQ-9 Self-Harm (Item 9) response options: 0 Not at all 1 Several days 2 More than half the days 3 Nearly every day PHQ-9 Levels: 0-4 No to mild depression 5-9 Mild depression 10-14 Moderate depression 15-19 Moderately severe depression 20-27 Severe depression OBJECTIVE: PHYSICAL EXAM There were no vitals taken for this visit. GENERAL APPEARANCE: Obese. NEURO PSYCH: Patient oriented to person, place, and time. Mood pleasant. Benign affect. MUSCULOSKELETAL VISUAL INSPECTION CERVICAL: WNL THORACIC: WNL LUMBAR: WNL MOTOR: BLE 4 throughout, L EHL 3 SENSORY: Numbness from knees down bilaterally GAIT: wheelchair bound REFLEXES: 0 patellars PROPRIOCEPTION: Not tested. LONG TRACT SIGNS: No clonus. No Hoffmans. STRAIGHT LEG TEST: Not Tested. L'HERMITTES SIGN: Not tested. SPURLING'S TEST: Not tested. NEURO TESTS: None DATA REVIEW MRI L-spine (08/2022): mild-mod L1-2 stenosis, mod L2-3 stenosis, prior L3-4 decompression, severe L4-5 stenosis ASSESSMENT/PLAN (M54.16) Radiculopathy, lumbar region Trey Figueroa is clinically indicated and wishes to pursue Lumbar Decompression surgery at L4-5 (laminotomy/foraminotomy bilaterally). The risks, benefits, and anticipated outcomes of the procedure/treatment/test, the alternatives to the procedure/treatment/test and their risks and benefits, and the roles and tasks of the personnel to be involved were discussed with the patient or the patient s personal screening representative. The patient has elected to schedule surgery at this time or intends to call the office with a surgical date. Shared decision making occurred while obtaining informed consent. 1. No Orders Entered Today 2. Follow up: 6 weeks postop Imaging Ordered: None I reviewed the information obtained and documented by the resident. I examined the patient and evaluated all available films and pertinent documents. We discussed the case and I agree with the plans as outlined in this note. SIGNATURE: Leroy Mancera MD PATIENT NAME: Trey Figueroa DATE: November 27, 2022 TIME: 2:17 PM PAGER: [facility] Progress note Author Amy Alvarado [facility] October 17, 2022 10:24am Note Date/Time October 17, 2022 10:24am [facility] [address] [place] [address] Wound Center Provider Note Signed Patient: Trey Figueroa Sr MR#: [id number] : 1950 Acct:[id number] Age/Sex: 72 / M Copies to: [facility] Amy Alvarado APRN~ HPI Date of Visit Date of Visit: Date of Service: 10/17/2022 Time of Service: : Narrative HPI: 07/02/22 Ed is a 72-year-old male presenting to [facility] wound care program for an initial visit with myself for a left posterior thigh traumatic puncture woundthat he states did happen while he accidentally sat down on an antique vase. Hehas been seen through the emergency department for this and quite possibly has been seen by his PCP as well. The area actually looks rather healthy and appears free of infection. Trey does have home health and this should continue. I did debride the area and I did choose to order topical antimicrobials for bioburden control as well as topical collagen for wound healing. Trey can be seen back in the office in approximately 2 weeks. Please note that healing will be affected by the dressings being done as ordered, offloading being done, having a nutritious diet that is somewhat higherin protein and amino acids and low in inflammation, having excellent diabetic control, as well as controlling and treating any infections that may arise. He does follow here at the wound care center with Dr. Hauser for a toe wound. 07/10/22 left post thigh has improved nicely, orders kept as is, 2 week f/u, hh to continue 07/17/22 thigh again has improved, keep orders, 2 week appt, hh as before 07/30/22 thigh is better again, orders kept as is, 2 week appt, HH to continue 08/14/22 left thigh has improved again, no change in orders, new wound to right lat thigh- use honey gel, new wound to right 2nd toe- was seen in ED, appears nani osteomyelitis or high suspicion for- will defer to podiatry for thoughts on surgery vs assisted iv antibiotics, he will start the oral clindamycin that ED prescribed today, hh to continue 10/17/22 thigh ulcers are healed, no follow up needed Subjective Pain Left Posterior Thigh: Pain Intensity: 7 Wound/Ulcer History When did wound start?: Middle of May 2022 for posterior thigh Mode of Arrival/ Electronic Security Specialist: W/C van Assistive Device Used Today: Wheelchair Lives with:: Alone Appetite Description: Within Normal Limits Who helps w/ dressing change?: Home Health Smoking Status: Former smoker [facility] Medical History Acid reflux Arrhythmia Asthma Blood clot of artery under arm Colon polyp Crush injury to thumb bone grafting done Diabetes High blood cholesterol Hypertension Neuropathy Pain in right foot Paralysis [id number] Shingles Surgical History H/O elbow surgery lt H/O eye surgery rt H/O hand surgery lt Previous back surgery x 2 Family History (Updated 08/11/22 @ 10:01 by Kady Manriquez LPN) Mother Diabetes father had DM mother did not Social History Smoking Status: Former smoker Tobacco Type: cigarettes Substance Use Type: None Substance Abuse Comment: Quit alcohol and tobacco 37 years ago Social History Comments: nephew Grafts History of Graft History of Graft?: No Exam Physical Exam Vital Signs: Temp Pulse Resp BP O2 Del Method 97.5 F L 76 18 100/60 Room Air 10/17/22 10:14 10/17/22 10:14 10/17/22 10:14 10/17/22 10:14 10/17/22 10:14 Const General: cooperative, comfortable and no acute distress Nutritional Appearance: obese Orientation: alert, awake and oriented x3 Lower/Upper Extremity Exam Vascular Exam-Pulses Left Radial: Pulse Assessment Method: Palpation Objective Meds/Allergies Home Medications amlodipine 10 mg tablet (Norvasc) 10 mg PO DAILY 11/15/19 [History Confirmed 08/14/22] hydroxyzine pamoate 50 mg capsule (Vistaril) 50 mg PO TID PRN HIVES 11/15/19 [History Confirmed 08/14/22] aspirin 81 mg chewable tablet 81 mg PO DAILY 12/22/19 [History Confirmed 08/14/22] dicyclomine 20 mg tablet 20 mg PO TID 12/22/19 [History Confirmed 08/14/22] hydrochlorothiazide 25 mg tablet 25 mg PO DAILY 12/22/19 [History Confirmed 08/14/22] losartan 25 mg tablet 25 mg PO DAILY 12/22/19 [History Confirmed 08/14/22] terazosin 5 mg capsule 20 mg PO QHS 12/22/19 [History Confirmed 08/14/22] albuterol sulfate 90 mcg/actuation aerosol inhaler 1 puff inhalation Q4H PRN Wheezing 02/19/21 [History Confirmed 08/14/22] amitriptyline 150 mg tablet 150 mg PO DAILY 02/19/21 [History Confirmed 08/14/22] ammonium lactate 12 % lotion 1 applic topical BID 02/19/21 [History Confirmed 08/14/22] docusate sodium 100 mg capsule (Colace) 100 mg PO DAILY 02/19/21 [History Confirmed 08/14/22] dutasteride 0.5 mg capsule 0.5 mg PO DAILY 02/19/21 [History Confirmed 08/14/22] fluticasone propionate 110 mcg/actuation HFA aerosol inhaler 1 puff inhalation Q12H 02/19/21 [History Confirmed 08/14/22] insulin glargine 100 unit/mL subcutaneous solution (Lantus U-100 Insulin) 45 unit subcut QHS 02/19/21 [History Confirmed 08/14/22] insulin lispro 100 unit/mL subcutaneous solution (Humalog U-100 Insulin) 11 unitsubcut ACHS 02/19/21 [History Confirmed 08/14/22] metoprolol tartrate 100 mg tablet 100 mg PO DAILY 02/19/21 [History Confirmed 08/14/22] nitroglycerin 0.4 mg sublingual tablet 0.4 mg sublingual Q5-15MIN PRN Chest Pain02/19/21 [History Confirmed 08/14/22] atorvastatin 40 mg tablet 40 mg PO DAILY #30 tabs 11/11/21 [Rx Confirmed 08/14/22] pantoprazole 20 mg tablet,delayed release 20 mg PO DAILY 05/19/22 [History Confirmed 08/14/22] miconazole nitrate 2 % topical cream 1 applic topical BID 5 days #30 grams 06/09/22 [Rx Confirmed 08/14/22] donepezil 10 mg tablet 10 mg PO DAILY 08/11/22 [History] meloxicam 15 mg tablet 15 mg PO DAILY 08/11/22 [History Confirmed 09/26/22] hydrocodone 5 mg-acetaminophen 325 mg tablet 1 tab PO Q6H PRN pain 3 days #12 tabs 08/15/22 [Rx Confirmed 09/26/22] tramadol 50 mg tablet 50 mg PO Q8H PRN pain 3 days #9 tabs 09/05/22 [Rx Confirmed 09/26/22] Allergies No Known Allergies Allergy (Verified 09/24/22 23:31) Wound/Ulcer Left Posterior Thigh: Type: Traumatic (puncture wound from sitting on an antique vase) Thickness: Full Percent of Devitalized: 0 Length (cm): 0 Width (cm): 0 Depth (cm): 0 CM Sq: 0.000 Surrounding Tissue Appearance: Hyperpigmented Surrounding Tissue Temp: Warm Drainage Odor: No Odor Right Lateral Thigh: Type: Ulcer 2nd Infection Thickness: Full Percent of Devitalized: 0 Length (cm): 0 Width (cm): 0 Depth (cm): 0 CM Sq: 0.000 Surrounding Tissue Temp: Warm Drainage Odor: No Odor Results Microbiology: Microbiology - Results from entire visit 08/29/22 09:55 Toe,Second Right - Ulcer Aerobic Culture - Final Methicillin Resis Staph Aureus 08/29/22 09:55 Toe,Second Right - Ulcer Anaerobic Culture - Final No Anaerobes Isolated 3 Days 08/29/22 09:55 Toe,Second Right - Ulcer Gram Stain - Final Height: 6 ft 6 in Weight: 143.789 kg Body Mass Index: 36.6 Assessment/Plan Assessment/Plan (1) Puncture wound: Assessment/Problem Details: left posterior thigh from accidentally sitting on an antique vase Code(s): T14.8XXA - Other injury of unspecified body region, initial encounter Status: Resolved (2) Wound pain: Assessment/Problem Details: left posterior thigh Status: Chronic (3) Chronic kidney disease, stage III (moderate): Code(s): N18.30 - Chronic kidney disease, stage 3 unspecified Status: Chronic (4) Diabetes: Code(s): E11.9 - Type 2 diabetes mellitus without complications Status: Chronic (5) Abscess of right thigh: Code(s): L02.415 - Cutaneous abscess of right lower limb Status: Resolved (6) Diabetic ulcer of toe of right foot associated with diabetes mellitus due tounderlying condition, with bone involvement without evidence of necrosis: Assessment/Problem Details: rt 2nd toe Code(s): E08.621 - Diabetes mellitus due to underlying condition with foot ulcer; L97.516- Non-pressure chronic ulcer of other part of right foot with bone involvement without evidence of necrosis Status: Inactive Time spent with patient Time Spent With Patient (min): 10 Dictated By: Amy Alvarado APRN DD/ 1022 Signed By: <Electronically signed by SHANNAN Alvarado> 10/17/22 [address] [facility] [address] Work Phone: [phone]) 887-448311-10-2022 Progress note Author Braulio Hauser [facility] October 10, 2022 10:50am Note Date/Time October 10, 2022 10:50am [facility] [address] [place] [address] Wound Center Provider Note Signed Patient: Trey Figueroa Sr MR#: [id number] : 1950 Acct:[id number] Age/Sex: 72 / M Copies to: [facility] Braulio Hauser DPM~ HPI Date of Visit Date of Visit: Date of Service: 10/10/2022 Time of Service: 10:48 Narrative HPI: This is a 72-year-old male who presents the wound care clinic today for evaluation and treatment of an ulceration on the distal aspect of his second right toe. Patient currently denies any history of nausea, vomiting, fever or chills. Patient did not wear the digital crest pad today into his appointment. Patient does report some tenderness in the toe. Subjective Pain Right Foot: Pain Description: Throbbing Pain Intensity: 0 Wound/Ulcer History When did wound start?: Middle of May 2022 for posterior thigh Mode of Arrival/ Electronic Security Specialist: W/C van Assistive Device Used Today: Wheelchair Lives with:: Alone Appetite Description: Within Normal Limits Who helps w/ dressing change?: Home Health Smoking Status: Former smoker [facility] Medical History Acid reflux Arrhythmia Asthma Blood clot of artery under arm Colon polyp Crush injury to thumb bone grafting done Diabetes High blood cholesterol Hypertension Neuropathy Pain in right foot Paralysis [id number] Shingles Surgical History H/O elbow surgery lt H/O eye surgery rt H/O hand surgery lt Previous back surgery x 2 Family History (Updated 08/11/22 @ 10:01 by Kady Manriquez LPN) Mother Diabetes father had DM mother did not Social History Smoking Status: Former smoker Tobacco Type: cigarettes Substance Use Type: None Substance Abuse Comment: Quit alcohol and tobacco 37 years ago Social History Comments: nephew Grafts History of Graft History of Graft?: No Exam Physical Exam Vital Signs: Temp Pulse Resp BP O2 Del Method 97.4 F L 60 18 114/68 Room Air 10/10/22 10:27 10/10/22 10:27 10/10/22 10:27 10/10/22 10:27 10/10/22 10:27 Lower/Upper Extremity Exam Vascular Exam-Pulses Left Brachial: Pulse Assessment Method: NIBP Right Dorsalis Pedis: Pulse Assessment Method: Palpation Right Posterior Tibial: Pulse Assessment Method: Palpation Left Radial: Pulse Assessment Method: Palpation Right Brachial: Pulse Assessment Method: NIBP Objective Meds/Allergies Home Medications amlodipine 10 mg tablet (Norvasc) 10 mg PO DAILY 11/15/19 [History Confirmed 08/14/22] hydroxyzine pamoate 50 mg capsule (Vistaril) 50 mg PO TID PRN HIVES 11/15/19 [History Confirmed 08/14/22] aspirin 81 mg chewable tablet 81 mg PO DAILY 12/22/19 [History Confirmed 08/14/22] dicyclomine 20 mg tablet 20 mg PO TID 12/22/19 [History Confirmed 08/14/22] hydrochlorothiazide 25 mg tablet 25 mg PO DAILY 12/22/19 [History Confirmed 08/14/22] losartan 25 mg tablet 25 mg PO DAILY 12/22/19 [History Confirmed 08/14/22] terazosin 5 mg capsule 20 mg PO QHS 12/22/19 [History Confirmed 08/14/22] albuterol sulfate 90 mcg/actuation aerosol inhaler 1 puff inhalation Q4H PRN Wheezing 02/19/21 [History Confirmed 08/14/22] amitriptyline 150 mg tablet 150 mg PO DAILY 02/19/21 [History Confirmed 08/14/22] ammonium lactate 12 % lotion 1 applic topical BID 02/19/21 [History Confirmed 08/14/22] docusate sodium 100 mg capsule (Colace) 100 mg PO DAILY 02/19/21 [History Confirmed 08/14/22] dutasteride 0.5 mg capsule 0.5 mg PO DAILY 02/19/21 [History Confirmed 08/14/22] fluticasone propionate 110 mcg/actuation HFA aerosol inhaler 1 puff inhalation Q12H 02/19/21 [History Confirmed 08/14/22] insulin glargine 100 unit/mL subcutaneous solution (Lantus U-100 Insulin) 45 unit subcut QHS 02/19/21 [History Confirmed 08/14/22] insulin lispro 100 unit/mL subcutaneous solution (Humalog U-100 Insulin) 11 unitsubcut ACHS 02/19/21 [History Confirmed 08/14/22] metoprolol tartrate 100 mg tablet 100 mg PO DAILY 02/19/21 [History Confirmed 08/14/22] nitroglycerin 0.4 mg sublingual tablet 0.4 mg sublingual Q5-15MIN PRN Chest Pain02/19/21 [History Confirmed 08/14/22] atorvastatin 40 mg tablet 40 mg PO DAILY #30 tabs 11/11/21 [Rx Confirmed 08/14/22] pantoprazole 20 mg tablet,delayed release 20 mg PO DAILY 05/19/22 [History Confirmed 08/14/22] miconazole nitrate 2 % topical cream 1 applic topical BID 5 days #30 grams 06/09/22 [Rx Confirmed 08/14/22] donepezil 10 mg tablet 10 mg PO DAILY 08/11/22 [History] meloxicam 15 mg tablet 15 mg PO DAILY 08/11/22 [History Confirmed 09/26/22] hydrocodone 5 mg-acetaminophen 325 mg tablet 1 tab PO Q6H PRN pain 3 days #12 tabs 08/15/22 [Rx Confirmed 09/26/22] tramadol 50 mg tablet 50 mg PO Q8H PRN pain 3 days #9 tabs 09/05/22 [Rx Confirmed 09/26/22] Allergies No Known Allergies Allergy (Verified 09/24/22 23:31) Wound/Ulcer Right Toe - 2nd Digit: Bed Appearance: Dried Exudate Percent of Wound Bed Granulated/Red: 100 Percent of Devitalized: 0 Length (cm): 0 Width (cm): 0 Depth (cm): 0 CM Sq: 0.000 Surrounding Tissue Appearance: [place] Surrounding Tissue Temp: Warm Drainage Amount: None Drainage Description: Yellow Drainage Odor: No Odor Lidocaine Applied Topically: 2% Jelly Results Microbiology: Microbiology - Results from entire visit 08/29/22 09:55 Toe,Second Right - Ulcer Aerobic Culture - Final Methicillin Resis Staph Aureus 08/29/22 09:55 Toe,Second Right - Ulcer Anaerobic Culture - Final No Anaerobes Isolated 3 Days 08/29/22 09:55 Toe,Second Right - Ulcer Gram Stain - Final Height: 6 ft 6 in Weight: 317 lb Body Mass Index: 36.6 Assessment/Plan Assessment/Plan (1) Ulcer of second toe of right foot: Qualifiers: Non-pressure ulcer stage: limited to breakdown of skin Qualified Code(s): L97.511 - Non-pressure chronic ulcer of other part of right foot limited to breakdown of skin Code(s): L97.519 - Non-pressure chronic ulcer of other part of right foot with unspecified severity Status: Resolved (2) Diabetes mellitus due to underlying condition, controlled, with diabetic neuropathy: Code(s): E08.40 - Diabetes mellitus due to underlying condition with diabetic neuropathy,unspecified Status: Chronic (3) Chronic diabetic ulcer of foot determined by examination: Code(s): E11.621 - Type 2 diabetes mellitus with foot ulcer; L97.509 - Non-pressure chronic ulcer of other part of unspecified foot with unspecified severity Status: Chronic (4) Chronic ulcer of right foot with fat layer exposed: Code(s): L97.512 - Non-pressure chronic ulcer of other part of right foot with fat layer exposed Status: Resolved Plan: I explained the patient that this is the fourth visit he has not presented withthe pad. I also explained that he he may return to normal shoe gear. Patient states he is getting some new diabetic shoes from [employer] [employer] [facility] [place] here in thenext few weeks. I recommended that he try them on in the store and walk around if that they feel any bit snug they are to return them to get a larger/size. I also explained to him that when he does get them home he is only wear them for about an hour around the house for the first few days possibly even week and then after that slowly increase the amount of time he wears them. If at any point time they should feel tight during that first week [facility] bigger size. Orders were written to discontinue wound care since the ulceration has healed. I explained patient that if he starts noticing any redness swelling drainage or pain coming from thetoe that he is to go to a urgent care, emergency room. Patient to reappoint as needed Time spent with patient Time Spent With Patient (min): 16 Dictated By: Braulio Hauser DPM DD/ [id number] Signed By: <Electronically signed by SANJU Hauser> 10/10/22 [address] [facility] Work Phone: 1(259) 812-973111-09-2022 History of Present illness Narrative* Alicia Izaguirre MD - 10/09/2022 1:00 PM EST Follow up Visit Patient Name: Trey Figueroa MR #: [id number] Age: [age] year old Date: October 08, 2022 Referred by: Dr. Savana Barajas Patient was last seen on 07/26/22 for the diagnosis of Spinal stenosis of lumbar region with neurogenic claudication Status post lumbar laminectomy Spondylolisthesis of lumbar region Status post thoracic spinal fusion Chronic pain syndrome Lumbar spondylosis Type 2 diabetes mellitus without complication, without long-term current use of insulin . The following plan of care was recommended Continue with MRI Lumbar Spine 2) Continue with spine surgeon consult - call [phone] to schedule 3) Continue with current medications 4) recommend alternating ice and heat for comfort. Schedule Caudal Epidural Steroid Injection - neurogenic claudication 6) RTC 4-6 weeks after injection Caudal Epidural Steroid Injection / Fluoroscopy done 08/28/22 [facility] Damian Hancock MD Hospital Encounter on 08/28/2022 Was there relief from this treatment? Yes. How long did the patient get relief from this treatment?6 days. What percentage of pain did the patient feel was relieved with this treatment? 45% pt states lost control of everything his bowels etc Treatment agreement on file: No Last toxicology screen done:N/A This Episode: Pattern: Constant. Character: Sharp. Severity: VAS Pain: 9/10 Current Location: low back middle Radiation: radiating to more to right leg than left. Associated Signs/Symptoms: Sleep disturbance; awakens during night due to pain. Sensory/Motor Changes: Tingling. Changes in Bowel/Bladder Control?: Yes. Number of hours of sleep per night: 4 Is sleep interrupted by pain? Yes. Patient feels safe at home: Yes Allergies: ALLERGIES No Known Allergies Current Outpatient Medications: Ipratropium [place] (ATROVENT) 21 mcg (0.03 %) nasal spray insulin aspart U-100 (NOVOLOG) 100 unit/mL Inject subcutaneously. amoxicillin-clavulanic acid (AUGMENTIN) 875-125 mg per tablet Take by mouth. insulin glargine (LANTUS) 100 unit/mL injection Inject subcutaneously. atorvastatin (LIPITOR) 40 mg tablet Take 40 mg by mouth once daily. cephALEXin (KEFLEX) 500 mg capsule TAKE 1 CAPSULE BY MOUTH EVERY 6 HOURS for 7 (SEVEN) days neomycin/polymyxin b/dexametha(MAXITROL 3.5 MG/G-10,000 UNIT/G-0.1 % EYE OINTMENT) right socket only four times a day for a week then twice daily x 1 week, then stop. traMADol (ULTRAM) 50 mg tablet Take by mouth. dutasteride (AVODART) 0.5 mg capsule [address] (PROTONIX) 20 mg tablet Take 1 tablet by mouth. pravastatin (PRAVACHOL) 40 mg tablet 1 tablet Once a day Orally 90 days erythromycin (ROMYCIN) 5 mg/gram (0.5 %) ophthalmic ointment Use 1 application in the right eye twice daily. meloxicam (MOBIC) 15 mg tablet 1 tablet albuterol HFA (PROVENTIL HFA, VENTOLIN HFA) 90 mcg/actuation inhaler Inhale 2 Puffs as instructed every 4 hours as needed. ammonium lactate (LAC-HYDRIN) 12 % lotion aspirin 81 mg chewable tablet Take 81 mg by mouth once daily. dicyclomine (BENTYL) 20 mg tablet 1 tablet docusate sodium (COLACE) 100 mg capsule 1 capsule as needed enalapril (VASOTEC) 20 mg tablet Take 20 mg by mouth. FLOVENT HFA 110 mcg/actuation inhaler twice daily. hydroCHLOROthiazide (HYDRODIURIL, ESIDRIX) 25 mg tablet 1 tab hydrOXYzine pamoate (VISTARIL) 50 mg capsule TAKE 1 CAPSULE EVERY 8 HOURS insulin regular human (NOVOLIN R,HUMULIN R) 100 unit/mL injection 45 units losartan (COZAAR) 25 mg tablet Take 25 mg by mouth twice daily. metoprolol tartrate, short acting, (LOPRESSOR) 50 mg tablet Take 100 mg by mouth. nitroglycerin sublingual (NITROQUICK) 0.4 mg SL tablet Dissolve 0.4 mg under the tongue. terazosin (HYTRIN) 5 mg capsule Take 10 mg by mouth daily at bedtime. Lisinopril, Bulk, 100 % powd Take 10 mg by mouth. amLODIPine (NORVASC) 10 mg tablet Take 10 mg by mouth. amitriptyline (ELAVIL) 100 mg tablet Take 150 mg by mouth. Steel Roller: Phyllis Phelan MA The patient is a 72-year-old male presenting for a follow-up visit. Patient have a long history of low back pain that was diagnosed as spinal stenosis foraminal stenosis with neurogenic claudication and radiculopathy. Patient also have a history of injury at the T10 level requiring a surgery years ago which was associated with remarkable weakness in the lower extremity. Patient has been treated for his residual spinal stenosis with conservative treatment as well as injection mostly as caudal epidural injection which was giving him pain relief for few weeks to few months every time. Recently the patient had a caudal epidural injection and he present today for follow-up visit, He stated that the injection gave him about 50% pain relief that lasted only for 6 days. He states however that this time he started experiencing bowel and bladder incontinence that still going on. Patient had an MRI done and was seen by physicians in [place] that recommended surgery He present today for an opinion if he should consider surgical intervention or not. He stated that he continue experiencing some degree of incontinence for bowel and bladder. No changes in the motor functions. No change in the sensory function On exam is alert oriented x3 in no acute distress. Vital signs stable. Head normocephalic with no evidence of trauma. Neck was supple with no JVD. Upper extremity exam within normal limits motor sensory and reflexes Patient present on a wheelchair. Motor function in the lower extremity 1/5. Sensory function for light touch bilateral symmetrical. Patient continue experiencing some degree of incontinence for bowel and bladder Most recent MRI of the lumbar spine results are available in the patient's chart. There is mild retrolisthesis of L2 on L3 anterolisthesis of L4 on L5 and there is minimal levoscoliosis there is multiple level facet arthropathy spinal stenosis and foraminal stenosis Impression Spinal stenosis and foraminal stenosis Newly developed bowel or bladder incontinence History of spinal cord injury T10 Plan Patient recently developed bowel or bladder incontinence that may indicate the development of caudaequina syndrome. He has a new MRI showing severe spinal stenosis at multiple level as well as severe foraminal stenosis. At this stage I would recommend an evaluation by spine surgeon to evaluate if surgery can be helpful. Patient had a surgery in the past with Dr. Mancera and would like to contact himfor that evaluation. We will send a message to his office patient will also get his phone number tocontact him directly if he needs to. He will follow-up after his surgical evaluation documented [facility] Progress note Author Braulio Hauser [facility] September 26, 2022 11:59am Note Date/Time September 26, 2022 1 1:59am [facility] [address] [place] [address] Wound Center Provider Note Signed Patient: Trey Figueroa Sr MR#: [id number] : 1950 Acct:[id number] Age/Sex: 72 / M Copies to: [facility] Braulio Hauser DPM~ HPI Date of Visit Date of Visit: Date of Service: 09/26/2022 Time of Service: 11:54 Narrative HPI: This is a 72-year-old male who presents the wound care clinic today for evaluation and treatment of an ulceration on the distal aspect of his second right toe. Patient currently denies any history of nausea, vomiting, fever or chills. Patient did not wear the digital crest pad today into his appointment. Patient does report some tenderness in the toe. Subjective Pain Right Foot: Pain Description: Throbbing Pain Intensity: 0 Left Posterior Thigh: Pain Description: Intermittent Pain Intensity: 0 Pain Management Techniques Other/Comment: hurts Wound/Ulcer History When did wound start?: Middle of May 2022 for posterior thigh Mode of Arrival/ Electronic Security Specialist: W/C van Assistive Device Used Today: Wheelchair Lives with:: Alone Appetite Description: Within Normal Limits Who helps w/ dressing change?: Home Health Smoking Status: Former smoker [facility] Medical History Acid reflux Arrhythmia Asthma Blood clot of artery under arm Colon polyp Crush injury to thumb bone grafting done Diabetes High blood cholesterol Hypertension Neuropathy Pain in right foot Paralysis [id number] Shingles Surgical History H/O elbow surgery lt H/O eye surgery rt H/O hand surgery lt Previous back surgery x 2 Family History (Updated 08/11/22 @ 10:01 by Kady Manriquez LPN) Mother Diabetes father had DM mother did not Social History Smoking Status: Former smoker Tobacco Type: cigarettes Substance Use Type: None Substance Abuse Comment: Quit alcohol and tobacco 37 years ago Social History Comments: nephew Grafts History of Graft History of Graft?: No Exam Physical Exam Vital Signs: Temp Pulse Resp BP O2 Del Method 98.2 F 73 20 113/72 Room Air 09/26/22 11:26 09/26/22 11:26 09/26/22 11:26 09/26/22 11:26 09/26/22 11:26 Lower/Upper Extremity Exam Vascular Exam-Pulses Left Brachial: Pulse Assessment Method: NIBP Right Dorsalis Pedis: Pulse Assessment Method: Palpation Right Posterior Tibial: Pulse Assessment Method: Palpation Left Radial: Pulse Assessment Method: Palpation Right Brachial: Pulse Assessment Method: NIBP Objective Meds/Allergies Home Medications amlodipine 10 mg tablet (Norvasc) 10 mg PO DAILY 11/15/19 [History Confirmed 08/14/22] hydroxyzine pamoate 50 mg capsule (Vistaril) 50 mg PO TID PRN HIVES 11/15/19 [History Confirmed 08/14/22] aspirin 81 mg chewable tablet 81 mg PO DAILY 12/22/19 [History Confirmed 08/14/22] dicyclomine 20 mg tablet 20 mg PO TID 12/22/19 [History Confirmed 08/14/22] hydrochlorothiazide 25 mg tablet 25 mg PO DAILY 12/22/19 [History Confirmed 08/14/22] losartan 25 mg tablet 25 mg PO DAILY 12/22/19 [History Confirmed 08/14/22] terazosin 5 mg capsule 20 mg PO QHS 12/22/19 [History Confirmed 08/14/22] albuterol sulfate 90 mcg/actuation aerosol inhaler 1 puff inhalation Q4H PRN Wheezing 02/19/21 [History Confirmed 08/14/22] amitriptyline 150 mg tablet 150 mg PO DAILY 02/19/21 [History Confirmed 08/14/22] ammonium lactate 12 % lotion 1 applic topical BID 02/19/21 [History Confirmed 08/14/22] docusate sodium 100 mg capsule (Colace) 100 mg PO DAILY 02/19/21 [History Confirmed 08/14/22] dutasteride 0.5 mg capsule 0.5 mg PO DAILY 02/19/21 [History Confirmed 08/14/22] fluticasone propionate 110 mcg/actuation HFA aerosol inhaler 1 puff inhalation Q12H 02/19/21 [History Confirmed 08/14/22] insulin glargine 100 unit/mL subcutaneous solution (Lantus U-100 Insulin) 45 unit subcut QHS 02/19/21 [History Confirmed 08/14/22] insulin lispro 100 unit/mL subcutaneous solution (Humalog U-100 Insulin) 11 unitsubcut ACHS 02/19/21 [History Confirmed 08/14/22] metoprolol tartrate 100 mg tablet 100 mg PO DAILY 02/19/21 [History Confirmed 08/14/22] nitroglycerin 0.4 mg sublingual tablet 0.4 mg sublingual Q5-15MIN PRN Chest Pain02/19/21 [History Confirmed 08/14/22] atorvastatin 40 mg tablet 40 mg PO DAILY #30 tabs 11/11/21 [Rx Confirmed 08/14/22] pantoprazole 20 mg tablet,delayed release 20 mg PO DAILY 05/19/22 [History Confirmed 08/14/22] miconazole nitrate 2 % topical cream 1 applic topical BID 5 days #30 grams 06/09/22 [Rx Confirmed 08/14/22] donepezil 10 mg tablet 10 mg PO DAILY 08/11/22 [History] meloxicam 15 mg tablet 15 mg PO DAILY 08/11/22 [History Confirmed 09/26/22] hydrocodone 5 mg-acetaminophen 325 mg tablet 1 tab PO Q6H PRN pain 3 days #12 tabs 08/15/22 [Rx Confirmed 09/26/22] tramadol 50 mg tablet 50 mg PO Q8H PRN pain 3 days #9 tabs 09/05/22 [Rx Confirmed 09/26/22] Allergies No Known Allergies Allergy (Verified 09/24/22 23:31) Wound/Ulcer Right Toe - 2nd Digit: Bed Appearance: Dried Exudate Percent of Wound Bed Granulated/Red: 0 Percent of Devitalized: 100 Length (cm): 0.5 Width (cm): 1.0 Depth (cm): 0.5 CM Sq: 0.500 Surrounding Tissue Appearance: [place] Surrounding Tissue Temp: Warm Drainage Amount: Scant Drainage Description: Yellow Drainage Odor: No Odor Lidocaine Applied Topically: 2% Jelly Other Findings/Comments Other Findings/Comments: Procedure: Subcutaneous tissue debridement of ulceration distal right toe for treatment of nonhealing ulceration. Once anesthesia was achieved and found to be adequate utilizing 2% lidocaine gel the ulceration on the distal second righttoe was debrided with a #15 blade of necrotic epidermal, dermal, and subcutaneous tissue point of cavity bed bleeding. Patient tolerated procedure well without complication and hemostasis was achieved by applying pressure. 0.21 cm grade of the ulceration was debrided to capillary bleeding today. Procedures Time Out: 2 Patient Identifiers (Procedure: Subcutaneous tissue debridement of ulceration distal aspect second right toe for treatment of nonhealing ulceration. Once anesthesia was achieved and found to be adequate utilizing 2% lidocaine gel the ulceration on the distal second right toe was debrided with a #15 blade of necrotic ep), Correct Patient, Correct Side/Site, Correct Procedureand Safety Issues Reviewed Results Microbiology: Microbiology - Results from entire visit 08/29/22 09:55 Toe,Second Right - Ulcer Aerobic Culture - Final Methicillin Resis Staph Aureus 08/29/22 09:55 Toe,Second Right - Ulcer Anaerobic Culture - Final No Anaerobes Isolated 3 Days 08/29/22 09:55 Toe,Second Right - Ulcer Gram Stain - Final Height: 6 ft 6 in Weight: 317 lb Body Mass Index: 36.6 Assessment/Plan Assessment/Plan (1) Ulcer of second toe of right foot: Qualifiers: Non-pressure ulcer stage: limited to breakdown of skin Qualified Code(s): L97.511 - Non-pressure chronic ulcer of other part of right foot limited to breakdown of skin Code(s): L97.519 - Non-pressure chronic ulcer of other part of right foot with unspecified severity Status: Resolved (2) Diabetes mellitus due to underlying condition, controlled, with diabetic neuropathy: Code(s): E08.40 - Diabetes mellitus due to underlying condition with diabetic neuropathy,unspecified Status: Chronic (3) Chronic diabetic ulcer of foot determined by examination: Code(s): E11.621 - Type 2 diabetes mellitus with foot ulcer; L97.509 - Non-pressure chronic ulcer of other part of unspecified foot with unspecified severity Status: Chronic (4) Chronic ulcer of right foot with fat layer exposed: Code(s): L97.512 - Non-pressure chronic ulcer of other part of right foot with fat layer exposed Status: Resolved Plan: I explained the patient that this is the third visit he has not presented with the pad. I also explained that he is to continue to wear the surgical shoe at all times. Orders were changed to wash the second right toe with Vashe he followed by applying collagen topped with an alginate and conform dressing everyother day. Patient currently has home health coming on doing the dressing changes. I explained patient that if he starts noticing any redness swelling drainage or pain coming from the toe that he is to go to a urgent care, emergency room. Pt. is to continue to wear the surgical shoe and digital crest pad to offload the toe. I will see him back in 2 weeks. The wound today measured 0.21 cm? this was vastly improved from 3.2 cm? at his last appointment. Dictated By: Braulio Hauser DPM DD/ 1154 Signed By: <Electronically signed by SANJU Hauser> 09/26/22 [address] [facility] Work Phone: [phone]) 922-426210-24-2022 Miscellaneous Notes* Telephone Encounter - Savana Barajas APRN.CNP - 09/23/2022 2:03 PM EDT Called patient to review Lumbar MRI. He reports numbness and tingling x 4 weeks. He reports loss of sensation between the legs. He reports loss of bowel control - states he not feeling like having a bowel movement and it just comes out . He reports this is a new symptom. He has severe spinal stenosis Lumbar spine on MRI. Patient instructed to go to ER to be evaluated for red flag symptoms. Patient verbalizes understanding and appreciative of the call. Savana Barajas APRN.CNP September 23, 2022 documented [facility]22 History of Present illness Narrative* Jere Page RT(R) - 09/18/2022 3:20 PM EDT Radiology Service Progress Note PATIENT NAME: Edward Williamston DATE OF SERVICE: September 18, 2022 TIME: 3:58 PM PATIENT IDENTITY VERIFICATION COMPLETED USING TWO (2) IDENTIFIERS: Name and Date of confirmedby patient verbally and Name and Date of confirmed by identification band FALL SCREENING: Has the patient had 2 falls in the last year or 1 fall with injury or currently using an Ambulatory Assistive Device (Walker, Cane, Wheelchair, Crutches, etc.)? No PATIENT GENDER DATA: Male PATIENT RELEVANT IMPLANT DATA REVIEWED: Yes RADIOLOGY DEPARTMENT: MR; Exam(s) Completed: Spine: Lumbar spine PERIPHERAL IV DATA: Not applicable SIGNED BY: RT Libia(R) September 18, 2022 3:58 PM documented in [facility]Cl[facility]10-12-2022 Miscellaneous Notes* Telephone Encounter - Nasreen May RN - 09/11/2022 3:46 PM EDT Called patient, who said he tried to call the office but did not leave a message. Gave patient message from Savana Barajas CNP, that he needs to be seen for an appointment and to bring the copy of the MRI disc to his appointment. Patient expressed understanding. Transferred call to schedulers line at [facility], instructed him that if no answer to leave a message. * Telephone Encounter - Nasreen May RN - 09/11/2022 8:40 AM EDT Per routing message- Please have patient schedule an office visit and to please bring MRI report and disc if available for review. Thank you, Savana Barajas APRN.HEIDY September 11, 2022 [employer] Supervisor please call patient to schedule appointment with pain management and have him bring in MRI report. * Telephone Encounter - Nasreen May RN - 09/10/2022 3:02 PM EDT On 08/28/22 patient had a sacral (caudal), epidural block, with injection non neurolytic with image guidance. Patient called and said that 1 week later he developed a reaction and was advised to go toED by Dr. Izaguirre, he went to [facility] in [place] on 09/05/2022 and was treated (MRI done) and released. Patient said he still has intermittent low back pain which radiates to right leg to the knee, ratespain at an 8 out of 10, still has episodes of urinary incontinence and was incontinent of stool once on 09/08/22 Please advise documented [facility]Cl[facility]10[facility]-2022 Miscellaneous Notes* Telephone Encounter - Savana Barajas APRN.CNP - 09/02/2022 1:59 PM EDT He had a caudal MAHESH on 08/28/22 and reports yesterday evening pain returned. Going sep 18 for MRI lumbar. He states he has talked to spine surgery who will not see him in office until he has an MRI. He reports loss of sensation in the genital area and increased urinary urgency with difficulty holding his urine which he reports is new. Patient advised to go to the ER for evaluation - red flag symptoms. He verbalizes understanding. Savana Barajas APRN.CNP September 02, 2022 * Telephone Encounter - Zara Ramon - 09/02/2022 12:40 PM EDT Trey Figueroa called today. : 1950 Allergies: Patient has no known allergies. (home) [phone] (cell) Reason for call: patient had injections on and all of the pain has returned. Pain 8/10 now. Can barely walk. Would like to speak to clinical staff jazlyn! Patient last appointment: Visit date not found The patients preferred pharmacy has been captured for this encounter? no Zara Ramon documented in this encounterCl[facility]09-29-2022 Progress note Author Braulio Hauser [facility] August 29, 2022 10:10am Note Date/Time August 29, 2022 10:10am [facility] [address] [place] [address] Wound Center Provider Note Signed Patient: Trey Figueroa Sr MR#: [id number] : 1950 Acct:[id number] Age/Sex: 72 / M Copies to: [facility] Braulio Hauser DPM~ HPI Date of Visit Date of Visit: Date of Service: 08/29/2022 Time of Service: 10:03 Narrative HPI: This is a 72-year-old male who presents the wound care clinic today for evaluation and treatment of an ulceration on the distal aspect of his second right toe. Patient currently denies any history of nausea, vomiting, fever or chills. Patient states that the digital crest pad that he has been using to offload the toe has broken. Patient does report some tenderness in the toe. Subjective Pain Right Foot: Pain Description: Throbbing Pain Intensity: 8 Left Posterior Thigh: Pain Description: Intermittent Pain Intensity: 7 Pain Management Techniques Other/Comment: hurts Wound/Ulcer History When did wound start?: Middle of May 2022 for posterior thigh Mode of Arrival/ Electronic Security Specialist: W/C van Assistive Device Used Today: Wheelchair Lives with:: Alone Appetite Description: Within Normal Limits Who helps w/ dressing change?: Home Health Smoking Status: Former smoker [facility] Medical History Acid reflux Arrhythmia Asthma Blood clot of artery under arm Colon polyp Crush injury to thumb bone grafting done Diabetes High blood cholesterol Hypertension Neuropathy Pain in right foot Paralysis [id number] Shingles Surgical History H/O elbow surgery lt H/O eye surgery rt H/O hand surgery lt Previous back surgery x 2 Family History (Updated 08/11/22 @ 10:01 by Kady Manriquez LPN) Mother Diabetes father had DM mother did not Social History Smoking Status: Former smoker Tobacco Type: cigarettes Substance Use Type: None Substance Abuse Comment: Quit alcohol and tobacco 37 years ago Social History Comments: nephew Grafts History of Graft History of Graft?: No Exam Physical Exam Vital Signs: Temp Pulse Resp BP O2 Del Method 97.2 F L 80 18 130/72 Room Air 08/22/22 10:02 08/29/22 09:51 08/29/22 09:51 08/29/22 09:51 08/29/22 09:51 Lower/Upper Extremity Exam Vascular Exam-Pulses Left Brachial: Pulse Assessment Method: NIBP Right Dorsalis Pedis: Pulse Assessment Method: Palpation Right Posterior Tibial: Pulse Assessment Method: Palpation Left Radial: Pulse Assessment Method: Palpation Objective Meds/Allergies Home Medications amlodipine 10 mg tablet (Norvasc) 10 mg PO DAILY 11/15/19 [History Confirmed 08/14/22] hydroxyzine pamoate 50 mg capsule (Vistaril) 50 mg PO TID PRN HIVES 11/15/19 [History Confirmed 08/14/22] aspirin 81 mg chewable tablet 81 mg PO DAILY 12/22/19 [History Confirmed 08/14/22] dicyclomine 20 mg tablet 20 mg PO TID 12/22/19 [History Confirmed 08/14/22] hydrochlorothiazide 25 mg tablet 25 mg PO DAILY 12/22/19 [History Confirmed 08/14/22] losartan 25 mg tablet 25 mg PO DAILY 12/22/19 [History Confirmed 08/14/22] terazosin 5 mg capsule 20 mg PO QHS 12/22/19 [History Confirmed 08/14/22] albuterol sulfate 90 mcg/actuation aerosol inhaler 1 puff inhalation Q4H PRN Wheezing 02/19/21 [History Confirmed 08/14/22] amitriptyline 150 mg tablet 150 mg PO DAILY 02/19/21 [History Confirmed 08/14/22] ammonium lactate 12 % lotion 1 applic topical BID 02/19/21 [History Confirmed 08/14/22] docusate sodium 100 mg capsule (Colace) 100 mg PO DAILY 02/19/21 [History Confirmed 08/14/22] dutasteride 0.5 mg capsule 0.5 mg PO DAILY 02/19/21 [History Confirmed 08/14/22] fluticasone propionate 110 mcg/actuation HFA aerosol inhaler 1 puff inhalation Q12H 02/19/21 [History Confirmed 08/14/22] insulin glargine 100 unit/mL subcutaneous solution (Lantus U-100 Insulin) 45 unit subcut QHS 02/19/21 [History Confirmed 08/14/22] insulin lispro 100 unit/mL subcutaneous solution (Humalog U-100 Insulin) 11 unitsubcut ACHS 02/19/21 [History Confirmed 08/14/22] metoprolol tartrate 100 mg tablet 100 mg PO DAILY 02/19/21 [History Confirmed 08/14/22] nitroglycerin 0.4 mg sublingual tablet 0.4 mg sublingual Q5-15MIN PRN Chest Pain02/19/21 [History Confirmed 08/14/22] atorvastatin 40 mg tablet 40 mg PO DAILY #30 tabs 11/11/21 [Rx Confirmed 08/14/22] pantoprazole 20 mg tablet,delayed release 20 mg PO DAILY 05/19/22 [History Confirmed 08/14/22] miconazole nitrate 2 % topical cream 1 applic topical BID 5 days #30 grams 06/09/22 [Rx Confirmed 08/14/22] donepezil 10 mg tablet 10 mg PO 08/11/22 [History] meloxicam 15 mg tablet 15 mg PO 08/11/22 [History] hydrocodone 5 mg-acetaminophen 325 mg tablet 1 tab PO Q6H PRN pain 3 days #12 tabs 08/15/22 [Rx] doxycycline hyclate 100 mg capsule 100 mg PO BID 10 days #20 caps 08/29/22 [Rx] Allergies No Known Allergies Allergy (Verified 08/11/22 09:07) Wound/Ulcer Right Toe - 2nd Digit: Bed Appearance: Beefy Red, Brown, Dried Exudate, Epithelial Tissue or Bridge, [place] and Yellow Percent of Wound Bed Granulated/Red: 25 Percent of Devitalized: 75 Length (cm): 3.3 Width (cm): 1.0 Depth (cm): 0.5 CM Sq: 3.300 Surrounding Tissue Appearance: [place] Surrounding Tissue Temp: Warm Drainage Amount: Moderate Drainage Description: Yellow Drainage Odor: No Odor Lidocaine Applied Topically: 2% Jelly Procedures Time Out: 2 Patient Identifiers, Correct Patient, Correct Side/Site, Correct Procedure and Safety Issues Reviewed Procedure: Procedure : Subcutaneous tissue debridement of ulceration on 2nd right toe for treatment of non healing ulceration. Once anesthesia was achieved utilizing 2% lidocaine gel the ulcer was debrided with a #15 blade of necrotic epiderma, dermal, and subcutaneous tissue to the point of capillary bed bleeding. Hemostasis was achieved by applying pressure. a total of 3.2 cm squared was debrided to capillary bed bleeding. Once debridement was completed a tissue sample was collected and submitted for [employer] due to poor wound healing. Results Height: 6 ft 6 in Weight: 317 lb Body Mass Index: 36.6 Assessment/Plan Assessment/Plan (1) Ulcer of second toe of right foot: Qualifiers: Non-pressure ulcer stage: limited to breakdown of skin Qualified Code(s): L97.511 - Non-pressure chronic ulcer of other part of right foot limited to breakdown of skin Code(s): L97.519 - Non-pressure chronic ulcer of other part of right foot with unspecified severity Status: Resolved (2) Diabetes mellitus due to underlying condition, controlled, with diabetic neuropathy: Code(s): E08.40 - Diabetes mellitus due to underlying condition with diabetic neuropathy, unspecified Status: Chronic (3) Chronic diabetic ulcer of foot determined by examination: Code(s): E11.621 - Type 2 diabetes mellitus with foot ulcer; L97.509 - Non-pressure chronic ulcer of other part of unspecified foot with unspecified severity Status: Chronic (4) Chronic ulcer of right foot with fat layer exposed: Code(s): L97.512 - Non-pressure chronic ulcer of other part of right foot with fat layer exposed Status: Resolved Plan: I explained the patient that this is the second visit he has not presented with the pad. I also explained that he is to continue to wear the surgical shoe at all times. Orders were changed to wash the second right toe with Vashe he followed by applying collagen topped with an alginate and conform dressing every other day. Patient currently has home health coming on doing the dressing changes. I explained patient that if he starts noticing any redness swelling drainage or pain coming from the toe that he is to go to a urgent care, emergency room. I also explained to the patient that I reviewed the x-rays and it did not show any bone erosion at this time. We may consider clotilde-raying to see if there is any erosion noted however there is no bone palpable on clinical exam at this time. With no bone being palpable and with the x-ray showing no evidence of bony erosion we will just continue with the oral antibiotic until completed and we may decide again to clotilde-ray at a later time. A prescription for doxycyline was dispensed to the patient today. Pt. is to continue to wear the surgical shoe. Dictated By: Braulio Hauser DPM DD/ 1003 Signed By: <Electronically signed by SANJU Hauser> 08/29/22 [address] [facility] Work Phone: 1(805) 447-669109-22-2022 Progress note Author Braulio Hauser [facility] August 22, 2022 10:21am Note Date/Time August 22, 2022 10:21am [facility] [address] [place] [address] Wound Center Provider Note Signed Patient: Trey Figueroa Sr MR#: [id number] : 1950 Acct:[id number] Age/Sex: 72 / M Copies to: [facility] Braulio Hauser DPM~ HPI Date of Visit Date of Visit: Date of Service: 08/22/2022 Time of Service: 10:13 Narrative HPI: This is a 72-year-old male who presents the wound care clinic today for evaluation and treatment of an ulceration on the distal aspect of his second right toe. Patient currently denies any history of nausea, vomiting, fever or chills. Patient was seen in the ER on 08/11/2022 for the second right toe. Patient states that the a blood blister had formed made him then go to the emergency room. In the emergency room they put him on IV vancomycin and cefepime. They also discharged him on clindamycin 3 times a day and when he saw his familydoctor the also put him on amoxicillin. Patient states that he has 3 days left of the antibiotic therapy. X-rays were taken also at the hospital on 08/11/2022. Patient does report some tenderness in the toe. Patient presents not wearing the offloading pad that was dispensed at the previous visit. Subjective Pain Right Foot: Pain Description: Throbbing Pain Intensity: 8 Left Posterior Thigh: Pain Description: Intermittent Pain Intensity: 7 Pain Management Techniques Other/Comment: hurts Wound/Ulcer History When did wound start?: Middle of May 2022 for posterior thigh Mode of Arrival/ Electronic Security Specialist: W/C van Assistive Device Used Today: Wheelchair Lives with:: Alone Appetite Description: Within Normal Limits Who helps w/ dressing change?: Home Health Smoking Status: Former smoker [facility] Medical History Acid reflux Arrhythmia Asthma Blood clot of artery under arm Colon polyp Crush injury to thumb bone grafting done Diabetes High blood cholesterol Hypertension Neuropathy Pain in right foot Paralysis [id number] Shingles Surgical History H/O elbow surgery lt H/O eye surgery rt H/O hand surgery lt Previous back surgery x 2 Family History (Updated 08/11/22 @ 10:01 by Kady Manriquez 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 Noted that does not appear to be any erosion of the bone on the distal phalanx of the second right toe. There is some osteopenia noted to the distal phalanx. Lower/Upper Extremity Exam Vascular Exam-Pulses Left Brachial: Pulse Assessment Method: NIBP Right Dorsalis Pedis: Pulse Assessment Method: Palpation Right Posterior Tibial: Pulse Assessment Method: Palpation Objective Meds/Allergies Home Medications amlodipine 10 mg tablet (Norvasc) 10 mg PO DAILY 11/15/19 [History Confirmed 08/14/22] hydroxyzine pamoate 50 mg capsule (Vistaril) 50 mg PO TID PRN HIVES 11/15/19 [History Confirmed 08/14/22] aspirin 81 mg chewable tablet 81 mg PO DAILY 12/22/19 [History Confirmed 08/14/22] dicyclomine 20 mg tablet 20 mg PO TID 12/22/19 [History Confirmed 08/14/22] hydrochlorothiazide 25 mg tablet 25 mg PO DAILY 12/22/19 [History Confirmed 08/14/22] losartan 25 mg tablet 25 mg PO DAILY 12/22/19 [History Confirmed 08/14/22] terazosin 5 mg capsule 20 mg PO QHS 12/22/19 [History Confirmed 08/14/22] albuterol sulfate 90 mcg/actuation aerosol inhaler 1 puff inhalation Q4H PRN Wheezing 02/19/21 [History Confirmed 08/14/22] amitriptyline 150 mg tablet 150 mg PO DAILY 02/19/21 [History Confirmed 08/14/22] ammonium lactate 12 % lotion 1 applic topical BID 02/19/21 [History Confirmed 08/14/22] docusate sodium 100 mg capsule (Colace) 100 mg PO DAILY 02/19/21 [History Confirmed 08/14/22] dutasteride 0.5 mg capsule 0.5 mg PO DAILY 02/19/21 [History Confirmed 08/14/22] fluticasone propionate 110 mcg/actuation HFA aerosol inhaler 1 puff inhalation Q12H 02/19/21 [History Confirmed 08/14/22] insulin glargine 100 unit/mL subcutaneous solution (Lantus U-100 Insulin) 45 unit subcut QHS 02/19/21 [History Confirmed 08/14/22] insulin lispro 100 unit/mL subcutaneous solution (Humalog U-100 Insulin) 11 unitsubcut ACHS 02/19/21 [History Confirmed 08/14/22] metoprolol tartrate 100 mg tablet 100 mg PO DAILY 02/19/21 [History Confirmed 08/14/22] nitroglycerin 0.4 mg sublingual tablet 0.4 mg sublingual Q5-15MIN PRN Chest Pain02/19/21 [History Confirmed 08/14/22] atorvastatin 40 mg tablet 40 mg PO DAILY #30 tabs 11/11/21 [Rx Confirmed 08/14/22] pantoprazole 20 mg tablet,delayed release 20 mg PO DAILY 05/19/22 [History Confirmed 08/14/22] miconazole nitrate 2 % topical cream 1 applic topical BID 5 days #30 grams 06/09/22 [Rx Confirmed 08/14/22] clindamycin HCl 300 mg capsule 300 mg PO TID 14 days #42 caps 08/11/22 [Rx Confirmed 08/14/22] donepezil 10 mg tablet 10 mg PO 08/11/22 [History] meloxicam 15 mg tablet 15 mg PO 08/11/22 [History] hydrocodone 5 mg-acetaminophen 325 mg tablet 1 tab PO Q6H PRN pain 3 days #12 tabs 08/15/22 [Rx] Allergies No Known Allergies Allergy (Verified 08/11/22 09:07) Wound/Ulcer Right Toe - 2nd Digit: Bed Appearance: Devitalized, [place] and Yellow Percent of Wound Bed Granulated/Red: 50 Percent of Devitalized: 50 Length (cm): 1.1 Width (cm): 1.4 Depth (cm): 0.1 CM Sq: 1.540 Surrounding Tissue Appearance: [place] Surrounding Tissue Temp: Warm Drainage Amount: Moderate Drainage Description: Yellow Drainage Odor: No Odor Lidocaine Applied Topically: 2% Jelly Other Findings/Comments Other Findings/Comments: There is no evidence of swelling, erythema, odor, or temperature change noted to the second right toe at this time. There is also evidence of no evidence of exposure of muscle tendon or bone at this time. Procedures Time Out: 2 Patient Identifiers, Correct Patient, Correct Side/Site, Correct Procedure and Safety Issues Reviewed Procedure: Procedure: Subcutaneous tissue debridement of ulceration right second toe for treatment of nonhealing ulceration. Once anesthesia was achieved and found to be adequate utilizing 2% lidocaine gel the ulceration on the dorsal of the second right toe was debrided with a curette of necrotic epidermal, dermal, and subcutaneous tissue the point of capital bed bleeding. Patient tolerated procedure well without complication hemostasis was achieved by applying pressure. 6 cm? of the ulceration was debrided to capillary bed bleeding today. Results Height: 6 ft 6 in Weight: 317 lb Body Mass Index: 36.6 Assessment/Plan Assessment/Plan (1) Ulcer of second toe of right foot: Qualifiers: Non-pressure ulcer stage: limited to breakdown of skin Qualified Code(s): L97.511 - Non-pressure chronic ulcer of other part of right foot limited to breakdown of skin Code(s): L97.519 - Non-pressure chronic ulcer of other part of right foot with unspecified severity Status: Resolved (2) Diabetes mellitus due to underlying condition, controlled, with diabetic neuropathy: Code(s): E08.40 - Diabetes mellitus due to underlying condition with diabetic neuropathy, unspecified Status: Chronic (3) Chronic diabetic ulcer of foot determined by examination: Code(s): E11.621 - Type 2 diabetes mellitus with foot ulcer; L97.509 - Non-pressure chronic ulcer of other part of unspecified foot with unspecified severity Status: Chronic (4) Chronic ulcer of right foot with fat layer exposed: Code(s): L97.512 - Non-pressure chronic ulcer of other part of right foot with fat layer exposed Status: Resolved Plan: I explained to the patient that the ulceration has recurred. I explained to the patient that he is to wear the digital crest pad this will lift the toe tip of the toe up so that does not rub on the shoe to prevent an ulceration or callus from reforming. I explained the patient that this is the second visit he has not presented with the pad. I also explained that he is to continue to wear the surgical shoe at all times. Orders were changed to wash the second right toe with Vashe he followed by applying collagen topped with an alginate and conform dressing every other day. Patient currently has home health coming on doing the dressing changes. I explained patient that if he starts noticing any redness swelling drainage or pain coming from the toe that he is to go to a urgent care, emergency room. I also explained to the patient that I reviewed the x-rays and it did not show any bone erosion at this time. We may consider clotilde-raying to see if there is any erosion noted however there is no bone palpable on clinical exam at this time. With no bone being palpable and with the x-ray showing no evidence of bony erosion we will just continue with the oral antibiotic until completed and we may decide again to clotilde-ray at a later time. Dictated By: Braulio Hauser DPM DD/ 1013 Signed By: <Electronically signed by ASNJU Hauser> 08/22/22 [address] [facility] Work Phone: 1(792) 524-498909-14-2022 Progress note Author Amy Alvarado [facility] August 14, 2022 1:30pm Note Date/Time August 14, 2022 1:30pm [facility] [address] [place] [address] Wound Center Provider Note Signed Patient: Trey Figueroa Sr MR#: [id number] : 1950 Acct:[id number] Age/Sex: 72 / M Copies to: [facility] Amy Alvarado APRN~ HPI Date of Visit Date of Visit: Date of Service: 08/14/2022 Time of Service: 13:25 Narrative HPI: 07/02/22 Ed is a 72-year-old male presenting to [facility] wound care program for an initial visit with myself for a left posterior thigh traumatic puncture woundthat he states did happen while he accidentally sat down on an antique vase. Nestorhas been seen through the emergency department for this and quite possibly has been seen by his PCP as well. The area actually looks rather healthy and appears free of infection. Trey does have home health and this should continue. I did debride the area and I did choose to order topical antimicrobials for bioburden control as well as topical collagen for wound healing. Trey can be seen back in the office in approximately 2 weeks. Please note that healing will be affected by the dressings being done as ordered, offloading being done, having a nutritious diet that is somewhat higherin protein and amino acids and low in inflammation, having excellent diabetic control, as well as controlling and treating any infections that may arise. He does follow here at the wound care center with Dr. Hauser for a toe wound. 07/10/22 left post thigh has improved nicely, orders kept as is, 2 week f/u, hh to continue 07/17/22 thigh again has improved, keep orders, 2 week appt, hh as before 07/30/22 thigh is better again, orders kept as is, 2 week appt, HH to continue 08/14/22 left thigh has improved again, no change in orders, new wound to right lat thigh- use honey gel, new wound to right 2nd toe- was seen in ED, appears nani osteomyelitis or high suspicion for- will defer to podiatry for thoughts on surgery vs terminal superintendent iv antibiotics, he will start the oral clindamycin that ED prescribed today, hh to continue Subjective Pain Left Posterior Thigh: Pain Description: Intermittent Pain Intensity: 7 Pain Management Techniques Other/Comment: hurts Wound/Ulcer History When did wound start?: Middle of May 2022 for posterior thigh Mode of Arrival/ Electronic Security Specialist: W/C van Assistive Device Used Today: Wheelchair Lives with:: Alone Appetite Description: Within Normal Limits Who helps w/ dressing change?: Home Health Smoking Status: Former smoker [facility] Medical History Acid reflux Arrhythmia Asthma Blood clot of artery under arm Colon polyp Crush injury to thumb bone grafting done Diabetes High blood cholesterol Hypertension Neuropathy Pain in right foot Paralysis [id number] Shingles Surgical History H/O elbow surgery lt H/O eye surgery rt H/O hand surgery lt Previous back surgery x 2 Family History (Updated 08/11/22 @ 10:01 by Kady Manriquez LPN) Mother Diabetes father had DM mother did not Social History Smoking Status: Former smoker Tobacco Type: cigarettes Substance Use Type: None Substance Abuse Comment: Quit alcohol and tobacco 37 years ago Social History Comments: nephew Grafts History of Graft History of Graft?: No Exam Physical Exam Vital Signs: Temp Pulse Resp BP O2 Del Method 97.7 F 75 20 124/84 Room Air 08/14/22 13:09 08/14/22 13:09 08/14/22 13:09 08/14/22 13:09 08/14/22 13:09 Const General: cooperative, comfortable and no acute distress Nutritional Appearance: obese Orientation: alert, awake and oriented x3 Lower/Upper Extremity Exam Vascular Exam-Pulses Left Brachial: Pulse Assessment Method: NIBP Right Dorsalis Pedis: Pulse Assessment Method: Palpation Right Posterior Tibial: Pulse Assessment Method: Palpation Objective Meds/Allergies Home Medications amlodipine 10 mg tablet (Norvasc) 10 mg PO DAILY 11/15/19 [History Confirmed 08/14/22] hydroxyzine pamoate 50 mg capsule (Vistaril) 50 mg PO TID PRN HIVES 11/15/19 [History Confirmed 08/14/22] aspirin 81 mg chewable tablet 81 mg PO DAILY 12/22/19 [History Confirmed 08/14/22] dicyclomine 20 mg tablet 20 mg PO TID 12/22/19 [History Confirmed 08/14/22] hydrochlorothiazide 25 mg tablet 25 mg PO DAILY 12/22/19 [History Confirmed 08/14/22] losartan 25 mg tablet 25 mg PO DAILY 12/22/19 [History Confirmed 08/14/22] terazosin 5 mg capsule 20 mg PO QHS 12/22/19 [History Confirmed 08/14/22] albuterol sulfate 90 mcg/actuation aerosol inhaler 1 puff inhalation Q4H PRN Wheezing 02/19/21 [History Confirmed 08/14/22] amitriptyline 150 mg tablet 150 mg PO DAILY 02/19/21 [History Confirmed 08/14/22] ammonium lactate 12 % lotion 1 applic topical BID 02/19/21 [History Confirmed 08/14/22] docusate sodium 100 mg capsule (Colace) 100 mg PO DAILY 02/19/21 [History Confirmed 08/14/22] dutasteride 0.5 mg capsule 0.5 mg PO DAILY 02/19/21 [History Confirmed 08/14/22] fluticasone propionate 110 mcg/actuation HFA aerosol inhaler 1 puff inhalation Q12H 02/19/21 [History Confirmed 08/14/22] insulin glargine 100 unit/mL subcutaneous solution (Lantus U-100 Insulin) 45 unit subcut QHS 02/19/21 [History Confirmed 08/14/22] insulin lispro 100 unit/mL subcutaneous solution (Humalog U-100 Insulin) 11 unitsubcut ACHS 02/19/21 [History Confirmed 08/14/22] metoprolol tartrate 100 mg tablet 100 mg PO DAILY 02/19/21 [History Confirmed 08/14/22] nitroglycerin 0.4 mg sublingual tablet 0.4 mg sublingual Q5-15MIN PRN Chest Pain02/19/21 [History Confirmed 08/14/22] atorvastatin 40 mg tablet 40 mg PO DAILY #30 tabs 11/11/21 [Rx Confirmed 08/14/22] pantoprazole 20 mg tablet,delayed release 20 mg PO DAILY 05/19/22 [History Confirmed 08/14/22] miconazole nitrate 2 % topical cream 1 applic topical BID 5 days #30 grams 06/09/22 [Rx Confirmed 08/14/22] clindamycin HCl 300 mg capsule 300 mg PO TID 14 days #42 caps 08/11/22 [Rx Confirmed 08/14/22] donepezil 10 mg tablet 10 mg PO 08/11/22 [History] meloxicam 15 mg tablet 15 mg PO 09/11/22 [History] Allergies No Known Allergies Allergy (Verified 08/11/22 09:07) Wound/Ulcer Left Posterior Thigh: Type: Traumatic (puncture wound from sitting on an antique vase) Thickness: Full Bed Appearance: Beefy Red, [place] and Yellow Percent of Wound Bed Granulated/Red: 99 Percent of Devitalized: 1 Length (cm): 0.8 Width (cm): 0.8 Depth (cm): 0.1 CM Sq: 0.640 Surrounding Tissue Appearance: Hyperpigmented Surrounding Tissue Temp: Warm Drainage Amount: Moderate Drainage Description: Serosanguineous Drainage Odor: No Odor Right Lateral Thigh: Type: Ulcer 2nd Infection Thickness: Full Bed Appearance: Devitalized and Yellow Percent of Wound Bed Granulated/Red: 0 Percent of Devitalized: 100 Length (cm): 0.7 Width (cm): 0.6 Depth (cm): 0.2 CM Sq: 0.420 Surrounding Tissue Appearance: Indurated Surrounding Tissue Temp: Warm Drainage Amount: Moderate Drainage Description: Serosanguineous and Yellow Drainage Odor: No Odor Right Finger - 2nd Digit: Type: Diabetic Ulcer Diabetic Ulcer Grading: Deep Ulcer: abscess, osteomyelitis, tendonitis, extends to tendon,bone Bed Appearance: Devitalized, [place] and Yellow Percent of Wound Bed Granulated/Red: 5 Percent of Devitalized: 95 Length (cm): 3.5 Width (cm): 2 Depth (cm): 0.3 CM Sq: 7.000 Surrounding Tissue Appearance: [place] and Edematous Surrounding Tissue Temp: Warm Drainage Amount: Moderate Drainage Description: Yellow Drainage Odor: No Odor Comment: this is a toe, right 2nd toe, not finger Results Height: 6 ft 6 in Weight: 143.789 kg Body Mass Index: 36.6 Assessment/Plan Assessment/Plan (1) Puncture wound: Assessment/Problem Details: left posterior thigh from accidentally sitting on an antique vase Code(s): T14.8XXA - Other injury of unspecified body region, initial encounter Status: Chronic (2) Wound pain: Assessment/Problem Details: left posterior thigh Status: Chronic (3) Chronic kidney disease, stage III (moderate): Code(s): N18.30 - Chronic kidney disease, stage 3 unspecified Status: Chronic (4) Diabetes: Code(s): E11.9 - Type 2 diabetes mellitus without complications Status: Chronic (5) Abscess of right thigh: Code(s): L02.415 - Cutaneous abscess of right lower limb Status: Acute (6) Diabetic ulcer of toe of right foot associated with diabetes mellitus due to underlying condition, with bone involvement without evidence of necrosis: Assessment/Problem Details: rt 2nd toe Code(s): E08.621 - Diabetes mellitus due to underlying condition with foot ulcer; L97.516 - Non-pressure chronic ulcer of other part of right foot with bone involvement without evidence of necrosis Status: Acute Time spent with patient Time Spent With Patient (min): 25 Dictated By: Amy Alvarado APRN DD/ 1325 Signed By: <Electronically signed by SHANNAN Alvarado> 08/14/22 [address] [facility] Work Phone: 1(240) 797-903109-11-2022 Hospital Discharge instructions Additional Instructions Take the antibiotic clindamycin 3 times a day for [address] Hauser next office in the morning for follow-up appointment 1 hydrocodone every 6 hours for severe pain Keep the wound clean and dry wash gently with soap and water and apply clean dressing at least once a day Return to the ER for high fever worsening redness red streaking up your leg or [facility] Work Phone: [phone]) 785-469008-30-2022 Progress note Author Amy Alvarado [facility] July 30, 2022 1:26pm Note Date/Time July 30, 2022 1: 26pm [facility] [address] [place] [address] Wound Center Provider Note Signed Patient: Trey Figueroa MR#: [id number] : 1950 Acct:[id number] Age/Sex: 72 / M Copies to: [facility] Amy Alvarado APRN~ HPI Date of Visit Date of Visit: Date of Service: 07/30/2022 Time of Service: 13:24 Narrative HPI: 07/02/22 Ed is a 72-year-old male presenting to [facility] wound care program for an initial visit with myself for a left posterior thigh traumatic puncture woundthat he states did happen while he accidentally sat down on an antique vase. Hehas been seen through the emergency department for this and quite possibly has been seen by his PCP as well. The area actually looks rather healthy and appears free of infection. Trey does have home health and this should continue. I did debride the area and I did choose to order topical antimicrobials for bioburden control as well as topical collagen for wound healing. Trey can be seen back in the office in approximately 2 weeks. Please note that healing will be affected by the dressings being done as ordered, offloading being done, having a nutritious diet that is somewhat higherin protein and amino acids and low in inflammation, having excellent diabetic control, as well as controlling and treating any infections that may arise. He does follow here at the wound care center with Dr. Hauser for a toe wound. 07/10/22 left post thigh has improved nicely, orders kept as is, 2 week f/u, hh to continue 07/17/22 thigh again has improved, keep orders, 2 week appt, hh as before 07/30/22 thigh is better again, orders kept as is, 2 week appt, HH to continue Subjective Pain Left Posterior Thigh: Pain Intensity: 7 Pain Management Techniques Other/Comment: hurts Wound/Ulcer History When did wound start?: Middle of May 2022 for posterior thigh Mode of Arrival/ Electronic Security Specialist: W/C van Assistive Device Used Today: Wheelchair Lives with:: Alone Appetite Description: Within Normal Limits Who helps w/ dressing change?: Home Health Smoking Status: Former smoker [facility] Medical History Acid reflux Arrhythmia Asthma Blood clot of artery under arm Colon polyp Crush injury to thumb bone grafting done Diabetes High blood cholesterol Hypertension Neuropathy Pain in right foot Paralysis [id number] Shingles Surgical History H/O elbow surgery lt H/O eye surgery rt H/O hand surgery lt Previous back surgery x 2 Family History Mother Diabetes Social History Smoking Status: Former smoker Tobacco Type: cigarettes Substance Use Type: None Substance Abuse Comment: Quit alcohol and tobacco 37 years ago Social History Comments: nephew Grafts History of Graft History of Graft?: No Exam Physical Exam Vital Signs: Temp Pulse Resp BP O2 Del Method 97.9 F 69 18 109/68 Room Air 07/30/22 13:17 07/30/22 13:17 07/30/22 13:17 07/30/22 13:17 07/25/22 10:12 Const General: cooperative, comfortable and no acute distress Nutritional Appearance: obese Orientation: alert, awake and oriented x3 Lower/Upper Extremity Exam Vascular Exam-Pulses Left Brachial: Pulse Assessment Method: NIBP Objective Meds/Allergies Home Medications amlodipine 10 mg tablet (Norvasc) 10 mg PO DAILY 11/15/19 [History Confirmed 07/25/22] hydroxyzine pamoate 50 mg capsule (Vistaril) 50 mg PO TID PRN HIVES 11/15/19 [History Confirmed 07/25/22] aspirin 81 mg chewable tablet 81 mg PO DAILY 12/22/19 [History Confirmed 07/25/22] dicyclomine 20 mg tablet 20 mg PO TID 12/22/19 [History Confirmed 07/25/22] hydrochlorothiazide 25 mg tablet 25 mg PO DAILY 12/22/19 [History Confirmed 07/25/22] losartan 25 mg tablet 25 mg PO DAILY 12/22/19 [History Confirmed 07/25/22] terazosin 5 mg capsule 20 mg PO QHS 12/22/19 [History Confirmed 07/25/22] gabapentin 300 mg capsule 900 mg PO TID 03/21/20 [History Confirmed 07/25/22] albuterol sulfate 90 mcg/actuation aerosol inhaler 1 puff inhalation Q4H PRN Wheezing 02/19/21 [History Confirmed 07/25/22] amitriptyline 150 mg tablet 150 mg PO DAILY 02/19/21 [History Confirmed 07/25/22] ammonium lactate 12 % lotion 1 applic topical BID 02/19/21 [History Confirmed 07/25/22] docusate sodium 100 mg capsule (Colace) 100 mg PO DAILY 02/19/21 [History Confirmed 07/25/22] dutasteride 0.5 mg capsule 0.5 mg PO DAILY 02/19/21 [History Confirmed 07/25/22] fluticasone propionate 110 mcg/actuation HFA aerosol inhaler 1 puff inhalation Q12H 02/19/21 [History Confirmed 07/25/22] insulin glargine 100 unit/mL subcutaneous solution (Lantus U-100 Insulin) 45 unit subcut QHS 02/19/21 [History Confirmed 07/25/22] insulin lispro 100 unit/mL subcutaneous solution (Humalog U-100 Insulin) 11 unitsubcut ACHS 02/19/21 [History Confirmed 07/25/22] meloxicam 15 mg tablet 15 mg PO DAILY 02/19/21 [History Confirmed 07/25/22] metoprolol tartrate 100 mg tablet 100 mg PO DAILY 02/19/21 [History Confirmed 07/25/22] nitroglycerin 0.4 mg sublingual tablet 0.4 mg sublingual Q5-15MIN PRN Chest Pain02/19/21 [History Confirmed 07/25/22] tramadol 50 mg tablet 50 mg PO BID PRN Pain 11/08/21 [History Confirmed 07/25/22] atorvastatin 40 mg tablet 40 mg PO DAILY #30 tabs 11/11/21 [Rx Confirmed 07/25/22] pantoprazole 20 mg tablet,delayed release 20 mg PO DAILY 05/19/22 [History Confirmed 07/25/22] cyclobenzaprine 5 mg tablet 5 mg PO BID PRN muscle spasm #14 tabs 06/01/22 [Rx Confirmed 07/25/22] miconazole nitrate 2 % topical cream 1 applic topical BID 5 days #30 grams 06/09/22 [Rx Confirmed 07/25/22] Allergies No Known Allergies Allergy (Verified 06/22/22 13:03) Wound/Ulcer Left Posterior Thigh: Type: Traumatic (puncture wound from sitting on an antique vase) Thickness: Full Bed Appearance: Beefy Red, [place] and Yellow Percent of Wound Bed Granulated/Red: 50 Percent of Devitalized: 50 Length (cm): 1.3 Width (cm): 1.6 Depth (cm): 0.1 CM Sq: 2.080 Surrounding Tissue Appearance: Hyperpigmented Surrounding Tissue Temp: Warm Drainage Amount: Moderate Drainage Description: Serosanguineous Drainage Odor: No Odor Results Height: 6 ft 6 in Weight: 143.789 kg Body Mass Index: 36.6 Assessment/Plan Assessment/Plan (1) Puncture wound: Assessment/Problem Details: left posterior thigh from accidentally sitting on an antique vase Code(s): T14.8XXA - Other injury of unspecified body region, initial encounter Status: Chronic (2) Wound pain: Assessment/Problem Details: left posterior thigh Status: Chronic (3) Chronic kidney disease, stage III (moderate): Code(s): N18.30 - Chronic kidney disease, stage 3 unspecified Status: Chronic (4) Diabetes: Code(s): E11.9 - Type 2 diabetes mellitus without complications Status: Chronic Time spent with patient Time Spent With Patient (min): 10 Dictated By: Amy Alvarado APRN DD/ 1324 Signed By: <Electronically signed by SHANNAN Alvarado> 07/30/22 1326 [facility] Work Phone: 1(775) 817-357208-26-2022 Instructions* Patient Instructions* Savana Barajas APRN.CNP - 07/26/2022 11:17 AM EDT Plan: 1) Continue with MRI Lumbar Spine 2) Continue with spine surgeon consult - call [phone] to schedule 3) Continue with current medications 4) recommend alternating ice and heat for comfort 5) Schedule Caudal Epidural Steroid Injection - neurogenic claudication 6) RTC 4-6 weeks after injection Please watch for the following red flag symptoms: -weight loss, fevers -chills, night time awakening of pain - bowel bladder incontinence (difficulty holding your urine or stool) -saddle anesthesia (numbness and tingling in your groin area) - progressive numbness or weakness. If these symptoms should arise you should seek emergency treatment. Savana Barajas APRN.CNP July 26, 2022 [facility] History of Present illness Narrative* Savana Barajas APRN.CNP - 07/26/2022 11:00 AM EDT Follow up Visit Patient Name: Trey Figueroa MR #: [id number] Age: [age] year old Date: July 26, 2022 Referred by: Dr. Zhou Patient was last seen on 12/13/2021 for the diagnosis of low mid back pain. The following plan of care was recommended 1) Consult spine surgery per patient request - call [phone] 2) MRI Lumbar spine 3) Schedule bilateral TFESI L5-S1 4) Continue with current medications 5) Start tizanidine 4mgf every 8 hours as needed, take first dose at bedtime to see if it makes youtoo drowsy, may cut in half for smaller dose. 6) RTC 4 weeks after injection. 01/21/2022 caudal block Was there relief from this treatment? Yes. How long did the patient get relief from this treatment?82%. What percentage of pain did the patient feel was relieved with this treatment? 6-8 weeks Treatment agreement on file: No Last toxicology screen done:N/A This Episode: Pattern: Constant. Character: Sharp. Severity: VAS Pain: 7/10 Current Location: upper and lower back Radiation: radiating to left leg is worse than right. Associated Signs/Symptoms: Sleep disturbance; awakens during night due to pain. Sensory/Motor Changes: Tingling or Numbness. Changes in Bowel/Bladder Control?: No. Number of hours of sleep per night: 5 Is sleep interrupted by pain? Yes. Patient feels safe at home: Yes Allergies: ALLERGIES No Known Allergies Current Outpatient Medications: Ipratropium [place] (ATROVENT) 21 mcg (0.03 %) nasal spray insulin aspart U-100 (NOVOLOG) 100 unit/mL Inject subcutaneously. amoxicillin-clavulanic acid (AUGMENTIN) 875-125 mg per tablet Take by mouth. insulin glargine (LANTUS) 100 unit/mL injection Inject subcutaneously. atorvastatin (LIPITOR) 40 mg tablet Take 40 mg by mouth once daily. cephALEXin (KEFLEX) 500 mg capsule TAKE 1 CAPSULE BY MOUTH EVERY 6 HOURS for 7 (SEVEN) days neomycin/polymyxin b/dexametha(MAXITROL 3.5 MG/G-10,000 UNIT/G-0.1 % EYE OINTMENT) right socket only four times a day for a week then twice daily x 1 week, then stop. traMADol (ULTRAM) 50 mg tablet Take by mouth. dutasteride (AVODART) 0.5 mg capsule [address] (PROTONIX) 20 mg tablet Take 1 tablet by mouth. pravastatin (PRAVACHOL) 40 mg tablet 1 tablet Once a day Orally 90 days erythromycin (ROMYCIN) 5 mg/gram (0.5 %) ophthalmic ointment Use 1 application in the right eye twice daily. meloxicam (MOBIC) 15 mg tablet 1 tablet albuterol HFA (PROVENTIL HFA, VENTOLIN HFA) 90 mcg/actuation inhaler Inhale 2 Puffs as instructed every 4 hours as needed. ammonium lactate (LAC-HYDRIN) 12 % lotion aspirin 81 mg chewable tablet Take 81 mg by mouth once daily. dicyclomine (BENTYL) 20 mg tablet 1 tablet docusate sodium (COLACE) 100 mg capsule 1 capsule as needed enalapril (VASOTEC) 20 mg tablet Take 20 mg by mouth. FLOVENT HFA 110 mcg/actuation inhaler twice daily. hydroCHLOROthiazide (HYDRODIURIL, ESIDRIX) 25 mg tablet 1 tab hydrOXYzine pamoate (VISTARIL) 50 mg capsule TAKE 1 CAPSULE EVERY 8 HOURS insulin regular human (NOVOLIN R,HUMULIN R) 100 unit/mL injection 45 units losartan (COZAAR) 25 mg tablet Take 25 mg by mouth twice daily. metoprolol tartrate, short acting, (LOPRESSOR) 50 mg tablet Take 100 mg by mouth. nitroglycerin sublingual (NITROQUICK) 0.4 mg SL tablet Dissolve 0.4 mg under the tongue. terazosin (HYTRIN) 5 mg capsule Take 10 mg by mouth daily at bedtime. Lisinopril, Bulk, 100 % powd Take 10 mg by mouth. amLODIPine (NORVASC) 10 mg tablet Take 10 mg by mouth. amitriptyline (ELAVIL) 100 mg tablet Take 150 mg by mouth. Steel Roller: Phyllis Phelan MA Imagin12/13/21 MRI Lumbar Spine - ordered, not completed 12/15/21 XR Lumbar Spine RESULT: Counting reference: Lumbosacral junction. For the purposes of this report, L5-S1 is considered the last lumbar type disc space and L4-5 is considered the level of the iliac crest. Postsurgical changes of anterior fusion with left lateral sandi and screws T10-T11. Hardware is intact. Solid bony fusion across the disc space. Additionally noted are post laminectomy changes at L3 along with partial resection of the L2 spinous process. Multilevel degenerative disc disease is noted, severe at L2-L3 and L3-L4. Minimal retrolisthesis at L3-L4. Moderate disc space narrowing L5-S1. Multilevel facet arthropathy lumbar spine. Mild to moderate degenerative change throughout the visualized thoracic spine. Procedures: 01/21/22 Dr. Alicia Izaguirre Caudal MAHESH OARRS: PDMP website checked and validated. All prescriptions have been APPROPRIATELY filled. No suspiciousactivity was identified. 07/23/2022 by Savana Barajas APRN.OCEANOGRAPHIC METEOROLOGIST Current Medications: Mobic 15mg Elavil 150mg Tramadol 50mg per PCP Anticoagulation: ASA 81mg DM: yes HgbA1C 6.9 Physical Therapy: none Cr: 0.80 BIRGIT: 12/13/21 Savana Barajas APRN.OCEANOGRAPHIC METEOROLOGIST PHYSICAL EXAMINATION: BP 144/90 Wt 317 lb (143.8kg) General appearance: Obese, Wheelchair, well appearing, alert, and in no acute distress Skin: skin color, texture, turgor normal, no rashes or lesions HEENT: normocephalic, atraumatic, sclera non-icteric Lungs: Respirations even and non-labored. Cardiovascular:Regular rate and rhythm GI: Soft, non-tender, non-distended. Musculoskeletal: Neck: Supple; good ROM., Back: Tenderness on palpation over the lumbar spine. , Straight leg raising test: Right - Negative, Left - Negative, Pain reproduced with flexion of the lumbar spine., Pain reproduced with extension of the lumbar spine. , Tenderness on palpation over the thoracic spine. , SI Joints: No tenderness over the bilateral SI Joints. , Joints: all Normal Neuro: alert and oriented x 3 HPI & ASSESSMENT: Trey Figueroa is a 72 year old male who presents for follow up low back pain in the setting of lumbar radiculopathy. He is an established patient of Dr. Alicia Izaguirre. , who was last seen on 12/13/21 by Savana Barajas APRN.OCEANOGRAPHIC METEOROLOGIST for low back pain. He had a Caudal MAHESH on 01/21/[address] Alicia Izaguirre which he reports 82% relief lasting 6-8 weeks. He reports low back pain, which he describes as stabbing, which radiates anterior to ankles with collapsing . He reports tingling back and BLE. He rates his pain at 8/10 currently and ranges from 2-10/10. The pain is aggravated by walking, standing. The pain is mitigated by block injection, sitting with legs stretched out. He is currently taking - see above. He denies any red flag symptoms including weight loss, fevers, chills, night time awakening of pain, bowel bladder incontinence, saddle anesthesia, progressive numbness or weakness. We discussed thatif these symptoms should arise she should seek emergency treatment. He reports he has lost sensation of groin and genital areas due to incision in thigh. He has a metal eye patch on right eye. Saw eye doctor 3 days ago. He does not know what is wrong and will follow up with eye specialists. On exam 72yo obese male, alert and oriented fully. No acute distress. He presents in a wheelchair, gait not assessed. He is wearing a metal eye patch right eye. Low back pain elicited with lumbar flexion and extension. Tenderness on palpation thoracic and lumbar spine. SLR negative bilaterally. Strength 5/5 and sensation are equal and intact bilateral upper and lower extremities. Impression: (M48.062) Spinal stenosis of lumbar region with neurogenic claudication (primary encounter diagnosis) (Z98.890) Status post lumbar laminectomy (M43.16) Spondylolisthesis of lumbar region (Z98.1) Status post thoracic spinal fusion (G89.4) Chronic pain syndrome (M47.816) Lumbar spondylosis (E11.9) Type 2 diabetes mellitus without complication, without long-term current use of insulin (HCC) Plan: 1) Continue with MRI Lumbar Spine - ordered in December last office visit 2) Continue with spine surgeon consult - call [phone] to schedule - ordered December office visit 3) Continue with current medications 4) recommend alternating ice and heat for comfort 5) Schedule Caudal Epidural Steroid Injection - neurogenic claudication 6) RTC 4-6 weeks after injection I spent a total of 30 minutes on the date of the service which included preparing to see the patient, [id number] patient care, completing clinical documentation, and performing a medically appropriate examination. Savana Barajas APRN.CNP July 26, 2022 [facility] Progress note Author Braulio Hauser [facility] July 25, 2022 10:25am Note Date/Time July 25, 2022 10 :25am [facility] [address] [place] [address] Wound Center Provider Note Signed Patient: Trey Figueroa Sr MR#: [id number] : 1950 Acct:[id number] Age/Sex: 72 / M Copies to: [facility] Braulio Hauser DPM~ HPI Date of Visit Date of Visit: Date of Service: 07/25/2022 Time of Service: 10:22 Narrative HPI: This is a 72-year-old male who presents the wound care clinic today for evaluation and treatment of an ulceration on the distal aspect of his second right toe. Patient currently denies any history of nausea, vomiting, fever or chills. Patient is currently doing wound care as ordered. Subjective Pain Right Foot: Pain Description: Throbbing Pain Intensity: 0 Left Posterior Thigh: Pain Intensity: 7 Pain Management Techniques Other/Comment: hurts Wound/Ulcer History When did wound start?: 3 months ago Mode of Arrival/ Electronic Security Specialist: W/C van Assistive Device Used Today: Wheelchair Lives with:: Alone Appetite Description: Within Normal Limits Who helps w/ dressing change?: Home Health Smoking Status: Never smoker [facility] Medical History Acid reflux Arrhythmia Asthma Blood clot of artery under arm Colon polyp Crush injury to thumb bone grafting done Diabetes High blood cholesterol Hypertension Neuropathy Pain in right foot Paralysis [id number] Shingles Surgical History H/O elbow surgery lt H/O eye surgery rt H/O hand surgery lt Previous back surgery x 2 Family History Mother Diabetes Social History Smoking Status: Never smoker Tobacco Type: cigarettes Substance Use Type: None Substance Abuse Comment: Quit alcohol and tobacco 37 years ago Social History Comments: nephew Grafts History of Graft History of Graft?: No Exam Physical Exam Vital Signs: Temp Pulse Resp BP O2 Del Method 97.5 F L 69 18 115/76 Room Air 07/25/22 10:12 07/25/22 10:12 07/25/22 10:12 07/25/22 10:12 07/25/22 10:12 Lower/Upper Extremity Exam Vascular Exam-Pulses Left Brachial: Pulse Assessment Method: NIBP Right Dorsalis Pedis: Pulse Assessment Method: Palpation Right Posterior Tibial: Pulse Assessment Method: Palpation Objective Meds/Allergies Home Medications amlodipine 10 mg tablet (Norvasc) 10 mg PO DAILY 11/15/19 [History Confirmed 07/25/22] hydroxyzine pamoate 50 mg capsule (Vistaril) 50 mg PO TID PRN HIVES 11/15/19 [History Confirmed 07/25/22] aspirin 81 mg chewable tablet 81 mg PO DAILY 12/22/19 [History Confirmed 07/25/22] dicyclomine 20 mg tablet 20 mg PO TID 12/22/19 [History Confirmed 07/25/22] hydrochlorothiazide 25 mg tablet 25 mg PO DAILY 12/22/19 [History Confirmed 07/25/22] losartan 25 mg tablet 25 mg PO DAILY 12/22/19 [History Confirmed 07/25/22] terazosin 5 mg capsule 20 mg PO QHS 12/22/19 [History Confirmed 07/25/22] gabapentin 300 mg capsule 900 mg PO TID 03/21/20 [History Confirmed 07/25/22] albuterol sulfate 90 mcg/actuation aerosol inhaler 1 puff inhalation Q4H PRN Wheezing 02/19/21 [History Confirmed 07/25/22] amitriptyline 150 mg tablet 150 mg PO DAILY 02/19/21 [History Confirmed 07/25/22] ammonium lactate 12 % lotion 1 applic topical BID 02/19/21 [History Confirmed 07/25/22] docusate sodium 100 mg capsule (Colace) 100 mg PO DAILY 02/19/21 [History Confirmed 07/25/22] dutasteride 0.5 mg capsule 0.5 mg PO DAILY 02/19/21 [History Confirmed 07/25/22] fluticasone propionate 110 mcg/actuation HFA aerosol inhaler 1 puff inhalation Q12H 02/19/21 [History Confirmed 07/25/22] insulin glargine 100 unit/mL subcutaneous solution (Lantus U-100 Insulin) 45 unit subcut QHS 02/19/21 [History Confirmed 07/25/22] insulin lispro 100 unit/mL subcutaneous solution (Humalog U-100 Insulin) 11 unitsubcut ACHS 02/19/21 [History Confirmed 07/25/22] meloxicam 15 mg tablet 15 mg PO DAILY 02/19/21 [History Confirmed 07/25/22] metoprolol tartrate 100 mg tablet 100 mg PO DAILY 02/19/21 [History Confirmed 07/25/22] nitroglycerin 0.4 mg sublingual tablet 0.4 mg sublingual Q5-15MIN PRN Chest Pain02/19/21 [History Confirmed 07/25/22] tramadol 50 mg tablet 50 mg PO BID PRN Pain 11/08/21 [History Confirmed 07/25/22] atorvastatin 40 mg tablet 40 mg PO DAILY #30 tabs 11/11/21 [Rx Confirmed 07/25/22] pantoprazole 20 mg tablet,delayed release 20 mg PO DAILY 05/19/22 [History Confirmed 07/25/22] cyclobenzaprine 5 mg tablet 5 mg PO BID PRN muscle spasm #14 tabs 06/01/22 [Rx Confirmed 07/25/22] miconazole nitrate 2 % topical cream 1 applic topical BID 5 days #30 grams 06/09/22 [Rx Confirmed 07/25/22] Allergies No Known Allergies Allergy (Verified 06/22/22 13:03) Wound/Ulcer Right Toe - 2nd Digit: Bed Appearance: [place] Percent of Wound Bed Granulated/Red: 90 Percent of Devitalized: 10 Length (cm): 0 Width (cm): 0 Depth (cm): 0 CM Sq: 0.000 Surrounding Tissue Appearance: Callous Surrounding Tissue Temp: Warm Drainage Amount: None Drainage Description: Serosanguineous Drainage Odor: No Odor Lidocaine Applied Topically: 2% Jelly Results Height: 6 ft 6 in Weight: 317 lb Body Mass Index: 36.6 Assessment/Plan Assessment/Plan (1) Ulcer of second toe of right foot: Qualifiers: Non-pressure ulcer stage: limited to breakdown of skin Qualified Code(s): L97.511 - Non-pressure chronic ulcer of other part of right foot limited to breakdown of skin Code(s): L97.519 - Non-pressure chronic ulcer of other part of right foot with unspecified severity Status: Resolved (2) Diabetes mellitus due to underlying condition, controlled, with diabetic neuropathy: Code(s): E08.40 - Diabetes mellitus due to underlying condition with diabetic neuropathy,unspecified Status: Chronic (3) Chronic diabetic ulcer of foot determined by examination: Code(s): E11.621 - Type 2 diabetes mellitus with foot ulcer; L97.509 - Non-pressure chronic ulcer of other part of unspecified foot with unspecified severity Status: Chronic (4) Chronic ulcer of right foot with fat layer exposed: Code(s): L97.512 - Non-pressure chronic ulcer of other part of right foot with fat layer exposed Status: Resolved Plan: I explained to the patient that the ulceration has healed. A Band-Aid was applied to the toe second right today. A digital crest pad was given to the patient and placed on the toe. I explained this pad will lift the toe tip of the toe up so that does not rub on the shoe to prevent an ulceration or callus from reforming. I explained patient that if he starts noticing any redness swelling drainage or pain coming from the toe that he is to go to a urgent care,emergency room. Time spent with patient Time Spent With Patient (min): 19 Dictated By: Braulio Hauser DPM DD/ 102 Signed By: <Electronically signed by SANJU Hauser> 07/25/22 1025 [facility] Work Phone: 1(414) 238-164708-22-2022 History of Present illness Narrative* Arden Madison, GOYO - 07/22/2022 3:20 PM EDT (H43.392) Vitreous floaters of left eye (primary encounter diagnosis) Comment: 3 small back floaters without flashes Retina is flat and did not detect any holes or tears Plan: Ed S & S of RD Return if any worsening conditions The nature of the patient's eye disease, its relationship to systemic health, its genetic components, and its prognosis have been explained to the patient/family. The treatment options/risks/benefitshave been discussed. Questions answered. I have interviewed and examined Trey Figueroa. I have confirmed and edited as necessary the chief complaint, history of present illness, past medical history, medications, family history, social history, review of systems, and exam findings as obtained by others. I agree with the assessment and plan as stated above,and have discussed them in detail with the patient. Arden Madison OD July 22, 2022 3:22 PM [facility] [facility]2022 Progress note Author Amy Alvarado [facility] July 17, 2022 11:15am Note Date/Time July 17, 2022 11 :15am [facility] [address] [place] [address] Wound Center Provider Note Signed Patient: Trey Figueroa Sr MR#: [id number] : 1950 Acct:[id number] Age/Sex: 72 / M Copies to: [facility] Amy Alvarado, [employer]~ HPI Date of Visit Date of Visit: Date of Service: 07/17/2022 Time of Service: 11:13 Narrative HPI: 07/02/22 Ed is a 72-year-old male presenting to [facility] wound care program for an initial visit with myself for a left posterior thigh traumatic puncture woundthat he states did happen while he accidentally sat down on an antique vase. Hehas been seen through the emergency department for this and quite possibly has been seen by his PCP as well. The area actually looks rather healthy and appears free of infection. Trey does have home health and this should continue. I did debride the area and I did choose to order topical antimicrobials for bioburden control as well as topical collagen for wound healing. Trey can be seen back in the office in approximately 2 weeks. Please note that healing will be affected by the dressings being done as ordered, offloading being done, having a nutritious diet that is somewhat higherin protein and amino acids and low in inflammation, having excellent diabetic control, as well as controlling and treating any infections that may arise. He does follow here at the wound care center with Dr. Hauser for a toe wound. 07/10/22 left post thigh has improved nicely, orders kept as is, 2 week f/u, hh to continue 07/17/22 thigh again has improved, keep orders, 2 week appt, hh as before Subjective Pain Left Posterior Thigh: Pain Intensity: 7 Pain Management Techniques Other/Comment: hurts Wound/Ulcer History When did wound start?: 3 months ago Mode of Arrival/ Electronic Security Specialist: W/C van Assistive Device Used Today: Wheelchair Lives with:: Alone Appetite Description: Within Normal Limits Who helps w/ dressing change?: Home Health Smoking Status: Never smoker [facility] Medical History Acid reflux Arrhythmia Asthma Blood clot of artery under arm Colon polyp Crush injury to thumb bone grafting done Diabetes High blood cholesterol Hypertension Neuropathy Pain in right foot Paralysis [id number] Shingles Surgical History H/O elbow surgery lt H/O eye surgery rt H/O hand surgery lt Previous back surgery x 2 Family History Mother Diabetes Social History Smoking Status: Never smoker Tobacco Type: cigarettes Substance Use Type: None Substance Abuse Comment: Quit alcohol and tobacco 37 years ago Social History Comments: nephew Grafts History of Graft History of Graft?: No Exam Physical Exam Vital Signs: Temp Pulse Resp BP O2 Del Method 97.7 F 85 20 94/68 L Room Air 07/17/22 11:09 07/17/22 11:09 07/17/22 11:09 07/17/22 11:09 07/17/22 11:09 Const General: cooperative, comfortable and no acute distress Nutritional Appearance: obese Orientation: alert, awake and oriented x3 Lower/Upper Extremity Exam Vascular Exam-Pulses Left Brachial: Pulse Assessment Method: NIBP Objective Meds/Allergies Home Medications amlodipine 10 mg tablet (Norvasc) 10 mg PO DAILY 11/15/19 [History Confirmed 07/10/22] hydroxyzine pamoate 50 mg capsule (Vistaril) 50 mg PO TID PRN HIVES 11/15/19 [History Confirmed 07/10/22] aspirin 81 mg chewable tablet 81 mg PO DAILY 12/22/19 [History Confirmed 07/10/22] dicyclomine 20 mg tablet 20 mg PO TID 12/22/19 [History Confirmed 07/10/22] hydrochlorothiazide 25 mg tablet 25 mg PO DAILY 12/22/19 [History Confirmed 07/10/22] losartan 25 mg tablet 25 mg PO DAILY 12/22/19 [History Confirmed 07/10/22] terazosin 5 mg capsule 20 mg PO QHS 12/22/19 [History Confirmed 07/10/22] gabapentin 300 mg capsule 900 mg PO TID 03/21/20 [History Confirmed 07/10/22] albuterol sulfate 90 mcg/actuation aerosol inhaler 1 puff inhalation Q4H PRN Wheezing 02/19/21 [History Confirmed 07/10/22] amitriptyline 150 mg tablet 150 mg PO DAILY 02/19/21 [History Confirmed 07/10/22] ammonium lactate 12 % lotion 1 applic topical BID 02/19/21 [History Confirmed 07/10/22] docusate sodium 100 mg capsule (Colace) 100 mg PO DAILY 02/19/21 [History Confirmed 07/10/22] dutasteride 0.5 mg capsule 0.5 mg PO DAILY 02/19/21 [History Confirmed 07/10/22] fluticasone propionate 110 mcg/actuation HFA aerosol inhaler 1 puff inhalation Q12H 02/19/21 [History Confirmed 07/10/22] insulin glargine 100 unit/mL subcutaneous solution (Lantus U-100 Insulin) 45 unit subcut QHS 02/19/21 [History Confirmed 07/10/22] insulin lispro 100 unit/mL subcutaneous solution (Humalog U-100 Insulin) 11 unitsubcut ACHS 02/19/21 [History Confirmed 07/10/22] meloxicam 15 mg tablet 15 mg PO DAILY 02/19/21 [History Confirmed 07/10/22] metoprolol tartrate 100 mg tablet 100 mg PO DAILY 02/19/21 [History Confirmed 07/10/22] nitroglycerin 0.4 mg sublingual tablet 0.4 mg sublingual Q5-15MIN PRN Chest Pain02/19/21 [History Confirmed 07/10/22] tramadol 50 mg tablet 50 mg PO BID PRN Pain 11/08/21 [History Confirmed 07/10/22] atorvastatin 40 mg tablet 40 mg PO DAILY #30 tabs 11/11/21 [Rx Confirmed 07/10/22] pantoprazole 20 mg tablet,delayed release 20 mg PO DAILY 05/19/22 [History Confirmed 07/10/22] amoxicillin 875 mg-potassium clavulanate 125 mg tablet 1 tab PO BID diabetic foot ulcer 10 days #20 tabs 05/30/22 [Rx Confirmed 07/10/22] cyclobenzaprine 5 mg tablet 5 mg PO BID PRN muscle spasm #14 tabs 06/01/22 [Rx Confirmed 07/10/22] miconazole nitrate 2 % topical cream 1 applic topical BID 5 days #30 grams 06/09/22 [Rx Confirmed 07/10/22] Allergies No Known Allergies Allergy (Verified 06/22/22 13:03) Wound/Ulcer Left Posterior Thigh: Type: Traumatic (puncture wound from sitting on an antique vase) Thickness: Full Bed Appearance: Beefy Red, [place] and Yellow Percent of Wound Bed Granulated/Red: 50 Percent of Devitalized: 50 Length (cm): 1.5 Width (cm): 3 Depth (cm): 0.1 CM Sq: 4.500 Surrounding Tissue Appearance: Hyperpigmented Surrounding Tissue Temp: Warm Drainage Amount: Moderate Drainage Description: Serosanguineous Drainage Odor: No Odor Results Height: 6 ft 6 in Weight: 143.789 kg Body Mass Index: 36.6 Assessment/Plan Assessment/Plan (1) Puncture wound: Assessment/Problem Details: left posterior thigh from accidentally sitting on an antique vase Code(s): T14.8XXA - Other injury of unspecified body region, initial encounter Status: Chronic (2) Wound pain: Assessment/Problem Details: left posterior thigh Status: Chronic (3) Chronic kidney disease, stage III (moderate): Code(s): N18.30 - Chronic kidney disease, stage 3 unspecified Status: Chronic (4) Diabetes: Code(s): E11.9 - Type 2 diabetes mellitus without complications Status: Chronic Time spent with patient Time Spent With Patient (min): 10 Dictated By: Amy Alvarado APRN DD/ 12 Signed By: <Electronically signed by SHANNAN Alvarado> 07/17/22 [facility] Work Phone: [phone]) 472-293408-10-2022 Progress note Author Amy Alvarado [facility] July 10, 2022 2:54pm Note Date/Time July 10, 2022 2: 54pm [facility] [address] [place] [address] Wound Center Provider Note Signed Patient: Trey Figueroa Sr MR#: [id number] : 1950 Acct:[id number] Age/Sex: 72 / M Copies to: [facility] Amy Alvarado APRN~ HPI Date of Visit Date of Visit: Date of Service: 07/10/2022 Time of Service: 14:52 Narrative HPI: 07/02/22 Ed is a 72-year-old male presenting to [facility] wound care program for an initial visit with myself for a left posterior thigh traumatic puncture woundthat he states did happen while he accidentally sat down on an antique vase. Hehas been seen through the emergency department for this and quite possibly has been seen by his PCP as well. The area actually looks rather healthy and appears free of infection. Trey does have home health and this should continue. I did debride the area and I did choose to order topical antimicrobials for bioburden control as well as topical collagen for wound healing. Trey can be seen back in the office in approximately 2 weeks. Please note that healing will be affected by the dressings being done as ordered, offloading being done, having a nutritious diet that is somewhat higherin protein and amino acids and low in inflammation, having excellent diabetic control, as well as controlling and treating any infections that may arise. He does follow here at the wound care center with Dr. Hauser for a toe wound. 07/10/22 left post thigh has improved nicely, orders kept as is, 2 week f/u, hh to continue Subjective Pain Left Posterior Thigh: Pain Intensity: 8 Pain Management Techniques Other/Comment: hurts Wound/Ulcer History When did wound start?: 3 months ago Mode of Arrival/ Electronic Security Specialist: W/C van Assistive Device Used Today: Wheelchair Lives with:: Alone Appetite Description: Within Normal Limits Who helps w/ dressing change?: Home Health Smoking Status: Never smoker [facility] Medical History Acid reflux Arrhythmia Asthma Blood clot of artery under arm Colon polyp Crush injury to thumb bone grafting done Diabetes High blood cholesterol Hypertension Neuropathy Pain in right foot Paralysis [id number] Shingles Surgical History H/O elbow surgery lt H/O eye surgery rt H/O hand surgery lt Previous back surgery x 2 Family History Mother Diabetes Social History Smoking Status: Never smoker Tobacco Type: cigarettes Substance Use Type: None Substance Abuse Comment: Quit alcohol and tobacco 37 years ago Social History Comments: nephew Grafts History of Graft History of Graft?: No Exam Physical Exam Vital Signs: Temp Pulse Resp BP O2 Del Method 97.7 F 93 H 20 116/77 Room Air 07/10/22 14:41 07/10/22 14:41 07/10/22 14:41 07/10/22 14:41 07/10/22 14:41 Const General: cooperative, comfortable and no acute distress Nutritional Appearance: obese Orientation: alert, awake and oriented x3 Lower/Upper Extremity Exam Vascular Exam-Pulses Left Brachial: Pulse Assessment Method: NIBP Objective Meds/Allergies Home Medications amlodipine 10 mg tablet (Norvasc) 10 mg PO DAILY 11/15/19 [History Confirmed 07/10/22] hydroxyzine pamoate 50 mg capsule (Vistaril) 50 mg PO TID PRN HIVES 11/15/19 [History Confirmed 07/10/22] aspirin 81 mg chewable tablet 81 mg PO DAILY 12/22/19 [History Confirmed 07/10/22] dicyclomine 20 mg tablet 20 mg PO TID 12/22/19 [History Confirmed 07/10/22] hydrochlorothiazide 25 mg tablet 25 mg PO DAILY 12/22/19 [History Confirmed 07/10/22] losartan 25 mg tablet 25 mg PO DAILY 12/22/19 [History Confirmed 07/10/22] terazosin 5 mg capsule 20 mg PO QHS 12/22/19 [History Confirmed 07/10/22] gabapentin 300 mg capsule 900 mg PO TID 03/21/20 [History Confirmed 07/10/22] albuterol sulfate 90 mcg/actuation aerosol inhaler 1 puff inhalation Q4H PRN Wheezing 02/19/21 [History Confirmed 07/10/22] amitriptyline 150 mg tablet 150 mg PO DAILY 02/19/21 [History Confirmed 07/10/22] ammonium lactate 12 % lotion 1 applic topical BID 02/19/21 [History Confirmed 07/10/22] docusate sodium 100 mg capsule (Colace) 100 mg PO DAILY 02/19/21 [History Confirmed 07/10/22] dutasteride 0.5 mg capsule 0.5 mg PO DAILY 02/19/21 [History Confirmed 07/10/22] fluticasone propionate 110 mcg/actuation HFA aerosol inhaler 1 puff inhalation Q12H 02/19/21 [History Confirmed 07/10/22] insulin glargine 100 unit/mL subcutaneous solution (Lantus U-100 Insulin) 45 unit subcut QHS 02/19/21 [History Confirmed 07/10/22] insulin lispro 100 unit/mL subcutaneous solution (Humalog U-100 Insulin) 11 unitsubcut ACHS 02/19/21 [History Confirmed 07/10/22] meloxicam 15 mg tablet 15 mg PO DAILY 02/19/21 [History Confirmed 07/10/22] metoprolol tartrate 100 mg tablet 100 mg PO DAILY 02/19/21 [History Confirmed 07/10/22] nitroglycerin 0.4 mg sublingual tablet 0.4 mg sublingual Q5-15MIN PRN Chest Pain02/19/21 [History Confirmed 07/10/22] tramadol 50 mg tablet 50 mg PO BID PRN Pain 11/08/21 [History Confirmed 07/10/22] atorvastatin 40 mg tablet 40 mg PO DAILY #30 tabs 11/11/21 [Rx Confirmed 07/10/22] pantoprazole 20 mg tablet,delayed release 20 mg PO DAILY 05/19/22 [History Confirmed 07/10/22] amoxicillin 875 mg-potassium clavulanate 125 mg tablet 1 tab PO BID diabetic foot ulcer 10 days #20 tabs 05/30/22 [Rx Confirmed 07/10/22] cyclobenzaprine 5 mg tablet 5 mg PO BID PRN muscle spasm #14 tabs 06/01/22 [Rx Confirmed 07/10/22] miconazole nitrate 2 % topical cream 1 applic topical BID 5 days #30 grams 06/09/22 [Rx Confirmed 07/10/22] Allergies No Known Allergies Allergy (Verified 06/22/22 13:03) Wound/Ulcer Left Posterior Thigh: Type: Traumatic (puncture wound from sitting on an antique vase) Thickness: Full Bed Appearance: Beefy Red, [place] and Yellow Percent of Wound Bed Granulated/Red: 90 Percent of Devitalized: 10 Length (cm): 1.8 Width (cm): 4 Depth (cm): 0.1 CM Sq: 7.200 Surrounding Tissue Appearance: Hyperpigmented Surrounding Tissue Temp: Warm Drainage Amount: Moderate Drainage Description: Serosanguineous Drainage Odor: No Odor Results Height: 6 ft 6 in Weight: 143.789 kg Body Mass Index: 36.6 Assessment/Plan Assessment/Plan (1) Puncture wound: Assessment/Problem Details: left posterior thigh from accidentally sitting on an antique vase Code(s): T14.8XXA - Other injury of unspecified body region, initial encounter Status: Chronic (2) Wound pain: Assessment/Problem Details: left posterior thigh Status: Chronic (3) Chronic kidney disease, stage III (moderate): Code(s): N18.30 - Chronic kidney disease, stage 3 unspecified Status: Chronic (4) Diabetes: Code(s): E11.9 - Type 2 diabetes mellitus without complications Status: Chronic Time spent with patient Time Spent With Patient (min): 10 Dictated By: Amy Avlarado APRN DD/ 51 Signed By: <Electronically signed by SHANNAN Alvarado> 07/10/22 [facility] Work Phone: 1(693) 326-617808-04-2022 Progress note Author Braulio Hauser [facility] July 04, 2022 11:01am Note Date/Time July 04, 2022 11: 01am [facility] [address] [place] [address] Wound Center Provider Note Signed Patient: Trey Figueroa Sr MR#: [id number] : 1950 Acct:[id number] Age/Sex: 72 / M Copies to: [facility] Braulio Hauser DPM~ HPI Date of Visit Date of Visit: Date of Service: 07/04/2022 Time of Service: 10:58 Narrative HPI: This is a 72-year-old male who presents the wound care clinic today for evaluation and treatment of an ulceration on the distal aspect of his second right toe. Patient currently denies any history of nausea, vomiting, fever or chills. Patient is currently doing wound care as ordered. Subjective Pain Right Foot: Pain Description: Throbbing Pain Intensity: 7 Wound/Ulcer History When did wound start?: 3 months ago Mode of Arrival/ Electronic Security Specialist: W/C van Assistive Device Used Today: Wheelchair Lives with:: Alone Appetite Description: Within Normal Limits Who helps w/ dressing change?: Home Health PMF[facility] Medical History Acid reflux Arrhythmia Asthma Blood clot of artery under arm Colon polyp Crush injury to thumb bone grafting done Diabetes High blood cholesterol Hypertension Neuropathy Pain in right foot Paralysis [id number] Shingles Surgical History H/O elbow surgery lt H/O eye surgery rt H/O hand surgery lt Previous back surgery x 2 Family History Mother Diabetes Social History Smoking Status: Never smoker Tobacco Type: cigarettes Substance Use Type: None Substance Abuse Comment: Quit alcohol and tobacco 37 years ago Social History Comments: nephew Grafts History of Graft History of Graft?: No Exam Physical Exam Vital Signs: Temp Pulse Resp BP O2 Del Method 97.5 F L 70 18 130/70 Room Air 07/04/22 10:43 07/04/22 10:43 07/04/22 10:43 07/04/22 10:43 07/04/22 10:43 Lower/Upper Extremity Exam Vascular Exam-Pulses Left Brachial: Pulse Assessment Method: NIBP Right Dorsalis Pedis: Pulse Assessment Method: Palpation Right Posterior Tibial: Pulse Assessment Method: Palpation Objective Meds/Allergies Home Medications amlodipine 10 mg tablet (Norvasc) 10 mg PO DAILY 11/15/19 [History Confirmed 06/19/22] hydroxyzine pamoate 50 mg capsule (Vistaril) 50 mg PO TID PRN HIVES 11/15/19 [History Confirmed 06/19/22] aspirin 81 mg chewable tablet 81 mg PO DAILY 12/22/19 [History Confirmed 05/30/22] dicyclomine 20 mg tablet 20 mg PO TID 12/22/19 [History Confirmed 06/19/22] hydrochlorothiazide 25 mg tablet 25 mg PO DAILY 12/22/19 [History Confirmed 06/19/22] losartan 25 mg tablet 25 mg PO DAILY 12/22/19 [History Confirmed 06/19/22] terazosin 5 mg capsule 20 mg PO QHS 12/22/19 [History Confirmed 06/19/22] gabapentin 300 mg capsule 900 mg PO TID 03/21/20 [History Confirmed 05/30/22] albuterol sulfate 90 mcg/actuation aerosol inhaler 1 puff inhalation Q4H PRN Wheezing 02/19/21 [History Confirmed 05/30/22] amitriptyline 150 mg tablet 150 mg PO DAILY 02/19/21 [History Confirmed 06/19/22] ammonium lactate 12 % lotion 1 applic topical BID 02/19/21 [History Confirmed 05/30/22] docusate sodium 100 mg capsule (Colace) 100 mg PO DAILY 02/19/21 [History Confirmed 05/30/22] dutasteride 0.5 mg capsule 0.5 mg PO DAILY 02/19/21 [History Confirmed 05/30/22] fluticasone propionate 110 mcg/actuation HFA aerosol inhaler 1 puff inhalation Q12H 02/19/21 [History Confirmed 05/30/22] insulin glargine 100 unit/mL subcutaneous solution (Lantus U-100 Insulin) 45 unit subcut QHS 02/19/21 [History Confirmed 06/19/22] insulin lispro 100 unit/mL subcutaneous solution (Humalog U-100 Insulin) 11 unitsubcut ACHS 02/19/21 [History Confirmed 05/30/22] meloxicam 15 mg tablet 15 mg PO DAILY 02/19/21 [History Confirmed 06/19/22] metoprolol tartrate 100 mg tablet 100 mg PO DAILY 02/19/21 [History Confirmed 06/19/22] nitroglycerin 0.4 mg sublingual tablet 0.4 mg sublingual Q5-15MIN PRN Chest Pain02/19/21 [History Confirmed 05/30/22] tramadol 50 mg tablet 50 mg PO BID PRN Pain 11/08/21 [History Confirmed 05/30/22] atorvastatin 40 mg tablet 40 mg PO DAILY #30 tabs 11/11/21 [Rx Confirmed 05/30/22] pantoprazole 20 mg tablet,delayed release 20 mg PO DAILY 05/19/22 [History Confirmed 05/30/22] amoxicillin 875 mg-potassium clavulanate 125 mg tablet 1 tab PO BID diabetic foot ulcer 10 days #20 tabs 05/30/22 [Rx] cephalexin 500 mg capsule 500 mg PO BID 7 days #14 caps 06/01/22 [Rx] cyclobenzaprine 5 mg tablet 5 mg PO BID PRN muscle spasm #14 tabs 06/01/22 [Rx] oxycodone-acetaminophen 5 mg-325 mg tablet 1 tab PO Q6H PRN pain 3 days #10 tabs 06/01/22 [Rx] miconazole nitrate 2 % topical cream 1 applic topical BID 5 days #30 grams 06/09/22 [Rx] doxycycline hyclate 100 mg capsule 100 mg PO BID 7 days #14 caps 06/19/22 [Rx] ciprofloxacin HCl 100 mg tablet 500 mg PO BID 10 days #20 tabs 06/22/22 [Rx] Allergies No Known Allergies Allergy (Verified 06/22/22 13:03) Wound/Ulcer Right Toe - 2nd Digit: Bed Appearance: [place] Percent of Wound Bed Granulated/Red: 90 Percent of Devitalized: 10 Length (cm): 0.1 Width (cm): 0.1 Depth (cm): 0.3 CM Sq: 0.010 Surrounding Tissue Appearance: Callous Surrounding Tissue Temp: Warm Drainage Amount: None Drainage Description: Serosanguineous Drainage Odor: No Odor Lidocaine Applied Topically: 2% Jelly Procedures Time Out: 2 Patient Identifiers, Correct Patient, Correct Side/Site, Correct Procedure and Safety Issues Reviewed Procedure: Procedure: Full-thickness debridement of ulceration distal aspect of second right toe for treatment of nonhealing ulceration. Once anesthesia was achieved and found to be adequate utilizing 2% lidocaine gel the ulceration on the distal second right toe was debrided with a #15 blade of necrotic epidermal and dermal tissue the point of capillary bleeding. Patient tolerated the procedure well without complication and hemostasis was achieved by applying pressure. 0.01 cm? of the ulceration was debrided to capillary bed bleeding today. Results Height: 6 ft 6 in Weight: 317 lb Body Mass Index: 36.6 Assessment/Plan Assessment/Plan (1) Ulcer of second toe of right foot: Qualifiers: Non-pressure ulcer stage: limited to breakdown of skin Qualified Code(s): L97.511 - Non-pressure chronic ulcer of other part of right foot limited to breakdown of skin Code(s): L97.519 - Non-pressure chronic ulcer of other part of right foot with unspecified severity Status: Chronic (2) Diabetes mellitus due to underlying condition, controlled, with diabetic neuropathy: Code(s): E08.40 - Diabetes mellitus due to underlying condition with diabetic neuropathy, unspecified Status: Chronic (3) Chronic diabetic ulcer of foot determined by examination: Code(s): E11.621 - Type 2 diabetes mellitus with foot ulcer; L97.509 - Non-pressure chronic ulcer of other part of unspecified foot with unspecified severity Status: Chronic (4) Chronic ulcer of right foot with fat layer exposed: Code(s): L97.512 - Non-pressure chronic ulcer of other part of right foot with fat layer exposed Status: Chronic Plan: I explained to the patient that when you have an amputation of the right great toe a lot more pressure of is applied to the distal aspect of the second right toe. I advised the patient stay off his foot is much as possible for the next week. He is to put this on after the dressing has been applied to the right foot. Orders were written to continue home health to wash the ulceration with Vashe followed by applying collagen with silver and a gauze dressing secured with tape 3 times a week. I explained to the patient that his ulceration has healed considerably since the last visit. The ulceration today measures 0.01 cm?. If the patient should notice any redness, swelling, nausea, vomiting, fever, chills or any purulent drainage coming from the wound he is to go to the emergency room. Dictated By: Braulio Hauser DPM DD/ 1058 Signed By: <Electronically signed by SANJU Hauser> 07/04/22 [address] [facility] Work Phone: 1(883) 909-224908-02-2022 Progress note Author Amy Alvarado [facility] July 02, 2022 11:20am Note Date/Time July 02, 2022 11: 18am [facility] [address] [place] [address] Wound Center Provider Note Signed Patient: Trey Figueroa MR#: [id number] : 1950 Acct:[id number] Age/Sex: 72 / M Copies to: [facility] Amy Alvarado APRN~ HPI Date of Visit Date of Visit: Date of Service: 07/02/2022 Time of Service: 11:12 Narrative HPI: 07/02/22 Ed is a 72-year-old male presenting to [facility] wound care program for an initial visit with myself for a left posterior thigh traumatic puncture woundthat he states did happen while he accidentally sat down on an antique vase. Gudelias been seen through the emergency department for this and quite possibly has been seen by his PCP as well. The area actually looks rather healthy and appears free of infection. Trey does have home health and this should continue. I did debride the area and I did choose to order topical antimicrobials for bioburden control as well as topical collagen for wound healing. Trey can be seen back in the office in approximately 2 weeks. Please note that healing will be affected by the dressings being done as ordered, offloading being done, having a nutritious diet that is somewhat higherin protein and amino acids and low in inflammation, having excellent diabetic control, as well as controlling and treating any infections that may arise. He does follow here at the wound care center with Dr. Hauser for a toe wound. Subjective Pain Left Posterior Thigh: Pain Intensity: 9 Wound/Ulcer History When did wound start?: 3 months ago Mode of Arrival/ Electronic Security Specialist: W/C van Assistive Device Used Today: Wheelchair Lives with:: Alone Appetite Description: Within Normal Limits Who helps w/ dressing change?: Home Health Smoking Status: Never smoker [facility] Medical History Acid reflux Arrhythmia Asthma Blood clot of artery under arm Colon polyp Crush injury to thumb bone grafting done Diabetes High blood cholesterol Hypertension Neuropathy Pain in right foot Paralysis [id number] Shingles Surgical History H/O elbow surgery lt H/O eye surgery rt H/O hand surgery lt Previous back surgery x 2 Family History Mother Diabetes Social History Smoking Status: Never smoker Tobacco Type: cigarettes Substance Use Type: None Substance Abuse Comment: Quit alcohol and tobacco 37 years ago Social History Comments: nephew Grafts History of Graft History of Graft?: No Exam Physical Exam Vital Signs: Temp Pulse Resp BP O2 Del Method 98.8 F 88 18 160/98 H Room Air 07/02/22 10:50 07/02/22 10:50 07/02/22 10:50 07/02/22 10:50 07/02/22 10:50 Const General: cooperative, comfortable and no acute distress Nutritional Appearance: obese Orientation: alert, awake and oriented x3 Lower/Upper Extremity Exam Vascular Exam-Pulses Left Brachial: Pulse Assessment Method: Palpation Objective Meds/Allergies Home Medications amlodipine 10 mg tablet (Norvasc) 10 mg PO DAILY 11/15/19 [History Confirmed 06/19/22] hydroxyzine pamoate 50 mg capsule (Vistaril) 50 mg PO TID PRN HIVES 11/15/19 [History Confirmed 06/19/22] aspirin 81 mg chewable tablet 81 mg PO DAILY 12/22/19 [History Confirmed 05/30/22] dicyclomine 20 mg tablet 20 mg PO TID 12/22/19 [History Confirmed 06/19/22] hydrochlorothiazide 25 mg tablet 25 mg PO DAILY 12/22/19 [History Confirmed 06/19/22] losartan 25 mg tablet 25 mg PO DAILY 12/22/19 [History Confirmed 06/19/22] terazosin 5 mg capsule 20 mg PO QHS 12/22/19 [History Confirmed 06/19/22] gabapentin 300 mg capsule 900 mg PO TID 03/21/20 [History Confirmed 05/30/22] albuterol sulfate 90 mcg/actuation aerosol inhaler 1 puff inhalation Q4H PRN Wheezing 02/19/21 [History Confirmed 05/30/22] amitriptyline 150 mg tablet 150 mg PO DAILY 02/19/21 [History Confirmed 06/19/22] ammonium lactate 12 % lotion 1 applic topical BID 02/19/21 [History Confirmed 05/30/22] docusate sodium 100 mg capsule (Colace) 100 mg PO DAILY 02/19/21 [History Confirmed 05/30/22] dutasteride 0.5 mg capsule 0.5 mg PO DAILY 02/19/21 [History Confirmed 05/30/22] fluticasone propionate 110 mcg/actuation HFA aerosol inhaler 1 puff inhalation Q12H 02/19/21 [History Confirmed 05/30/22] insulin glargine 100 unit/mL subcutaneous solution (Lantus U-100 Insulin) 45 unit subcut QHS 02/19/21 [History Confirmed 06/19/22] insulin lispro 100 unit/mL subcutaneous solution (Humalog U-100 Insulin) 11 unitsubcut ACHS 02/19/21 [History Confirmed 05/30/22] meloxicam 15 mg tablet 15 mg PO DAILY 02/19/21 [History Confirmed 06/19/22] metoprolol tartrate 100 mg tablet 100 mg PO DAILY 02/19/21 [History Confirmed 06/19/22] nitroglycerin 0.4 mg sublingual tablet 0.4 mg sublingual Q5-15MIN PRN Chest Pain02/19/21 [History Confirmed 05/30/22] tramadol 50 mg tablet 50 mg PO BID PRN Pain 11/08/21 [History Confirmed 05/30/22] atorvastatin 40 mg tablet 40 mg PO DAILY #30 tabs 11/11/21 [Rx Confirmed 05/30/22] pantoprazole 20 mg tablet,delayed release 20 mg PO DAILY 05/19/22 [History Confirmed 05/30/22] amoxicillin 875 mg-potassium clavulanate 125 mg tablet 1 tab PO BID diabetic foot ulcer 10 days #20 tabs 05/30/22 [Rx] cephalexin 500 mg capsule 500 mg PO BID 7 days #14 caps 06/01/22 [Rx] cyclobenzaprine 5 mg tablet 5 mg PO BID PRN muscle spasm #14 tabs 06/01/22 [Rx] oxycodone-acetaminophen 5 mg-325 mg tablet 1 tab PO Q6H PRN pain 3 days #10 tabs 06/01/22 [Rx] miconazole nitrate 2 % topical cream 1 applic topical BID 5 days #30 grams 06/09/22 [Rx] doxycycline hyclate 100 mg capsule 100 mg PO BID 7 days #14 caps 06/19/22 [Rx] ciprofloxacin HCl 100 mg tablet 500 mg PO BID 10 days #20 tabs 06/22/22 [Rx] Allergies No Known Allergies Allergy (Verified 06/22/22 13:03) Wound/Ulcer Left Posterior Thigh: Type: Traumatic (puncture wound from sitting on an antique vase) Thickness: Full Bed Appearance: Beefy Red, [place] and Yellow Percent of Wound Bed Granulated/Red: 60 Percent of Devitalized: 40 Length (cm): 3.0 Width (cm): 7.0 Depth (cm): 0.2 CM Sq: 21.000 Surrounding Tissue Appearance: Hyperpigmented Surrounding Tissue Temp: Warm Drainage Amount: Moderate Drainage Description: Serosanguineous Procedures Time Out: 2 Patient Identifiers, Correct Patient, Correct Side/Site, Correct Procedure and Safety Issues Reviewed Procedure: The left posterior thigh wound was not anesthetized with topical 2% lidocaine gel. A scissor and forcep was used to perform debridement for the removal of 2 cm? of devitalized tissue consisting of skin and slough. Debridement was down to healthy bleeding tissue. Estimated blood loss was very minimal. Hemostasis was achieved by applying pressure. The left posterior thigh wound now appears 10% more pink and red and the size remains the same. The patient tolerated well with no pain. Results Height: 6 ft 6 in Weight: 143.789 kg Body Mass Index: 36.6 Assessment/Plan Assessment/Plan (1) Puncture wound: Assessment/Problem Details: left posterior thigh from accidentally sitting on an antique vase Code(s): T14.8XXA - Other injury of unspecified body region, initial encounter Status: Chronic (2) Wound pain: Assessment/Problem Details: left posterior thigh Status: Chronic (3) Chronic kidney disease, stage III (moderate): Code(s): N18.30 - Chronic kidney disease, stage 3 unspecified Status: Chronic (4) Diabetes: Code(s): E11.9 - Type 2 diabetes mellitus without complications Status: Chronic Time spent with patient Time Spent With Patient (min): 15 Dictated By: Amy Alvarado APRN DD/ 11 Signed By: <Electronically signed by SHANNAN Alvarado> 07/02/22 [address] [facility] Work Phone: 1(878) 335-404507-21-2022 Progress note Author Braulio Hauser [facility] June 20, 2022 11:14am Note Date/Time June 20, 2022 11:1 4am [facility] [address] [place] [address] Wound Center Provider Note Signed Patient: Trey Figueroa Sr MR#: [id number] : 1950 Acct:[id number] Age/Sex: 72 / M Copies to: [facility] Braulio Hauser DPM~ HPI Date of Visit Date of Visit: Date of Service: 06/20/2022 Time of Service: 11:12 Narrative HPI: This is a 72-year-old male who presents the wound care clinic today for evaluation and treatment of an ulceration on the distal aspect of his second right toe. Patient currently denies any history of nausea, vomiting, fever or chills. Patient is currently doing wound care as ordered. Subjective Pain Right Foot: Pain Description: Throbbing Pain Intensity: 7 Wound/Ulcer History When did wound start?: 3 months ago Mode of Arrival/ Electronic Security Specialist: W/C van Assistive Device Used Today: Wheelchair Lives with:: Alone Appetite Description: Within Normal Limits Who helps w/ dressing change?: Home Health Smoking Status: Never smoker [facility] Medical History Acid reflux Arrhythmia Asthma Blood clot of artery under arm Colon polyp Crush injury to thumb bone grafting done Diabetes High blood cholesterol Hypertension Neuropathy Pain in right foot Paralysis [id number] Shingles Surgical History H/O elbow surgery lt H/O eye surgery rt H/O hand surgery lt Previous back surgery x 2 Family History Mother Diabetes Social History Smoking Status: Never smoker Tobacco Type: cigarettes Substance Use Type: None Substance Abuse Comment: Quit alcohol and tobacco 37 years ago Social History Comments: nephew Grafts History of Graft History of Graft?: No Exam Physical Exam Vital Signs: Temp Pulse Resp BP O2 Del Method 97.5 F L 57 L 18 99/61 L Room Air 06/20/22 10:44 06/20/22 10:44 06/20/22 10:44 06/20/22 10:44 06/20/22 10:44 Lower/Upper Extremity Exam Vascular Exam-Pulses Left Brachial: Pulse Assessment Method: NIBP Right Dorsalis Pedis: Pulse Assessment Method: Palpation Right Posterior Tibial: Pulse Assessment Method: Palpation Objective Meds/Allergies Home Medications amlodipine 10 mg tablet (Norvasc) 10 mg PO DAILY 11/15/19 [History Confirmed 06/19/22] hydroxyzine pamoate 50 mg capsule (Vistaril) 50 mg PO TID PRN HIVES 11/15/19 [History Confirmed 06/19/22] aspirin 81 mg chewable tablet 81 mg PO DAILY 12/22/19 [History Confirmed 05/30/22] dicyclomine 20 mg tablet 20 mg PO TID 12/22/19 [History Confirmed 06/19/22] hydrochlorothiazide 25 mg tablet 25 mg PO DAILY 12/22/19 [History Confirmed 06/19/22] losartan 25 mg tablet 25 mg PO DAILY 12/22/19 [History Confirmed 06/19/22] terazosin 5 mg capsule 20 mg PO QHS 12/22/19 [History Confirmed 06/19/22] gabapentin 300 mg capsule 900 mg PO TID 03/21/20 [History Confirmed 05/30/22] albuterol sulfate 90 mcg/actuation aerosol inhaler 1 puff inhalation Q4H PRN Wheezing 02/19/21 [History Confirmed 05/30/22] amitriptyline 150 mg tablet 150 mg PO DAILY 02/19/21 [History Confirmed 06/19/22] ammonium lactate 12 % lotion 1 applic topical BID 02/19/21 [History Confirmed 05/30/22] docusate sodium 100 mg capsule (Colace) 100 mg PO DAILY 02/19/21 [History Confirmed 05/30/22] dutasteride 0.5 mg capsule 0.5 mg PO DAILY 02/19/21 [History Confirmed 05/30/22] fluticasone propionate 110 mcg/actuation HFA aerosol inhaler 1 puff inhalation Q12H 02/19/21 [History Confirmed 05/30/22] insulin glargine 100 unit/mL subcutaneous solution (Lantus U-100 Insulin) 45 unit subcut QHS 02/19/21 [History Confirmed 06/19/22] insulin lispro 100 unit/mL subcutaneous solution (Humalog U-100 Insulin) 11 unitsubcut ACHS 02/19/21 [History Confirmed 05/30/22] meloxicam 15 mg tablet 15 mg PO DAILY 02/19/21 [History Confirmed 06/19/22] metoprolol tartrate 100 mg tablet 100 mg PO DAILY 02/19/21 [History Confirmed 06/19/22] nitroglycerin 0.4 mg sublingual tablet 0.4 mg sublingual Q5-15MIN PRN Chest Pain02/19/21 [History Confirmed 05/30/22] tramadol 50 mg tablet 50 mg PO BID PRN Pain 11/08/21 [History Confirmed 05/30/22] atorvastatin 40 mg tablet 40 mg PO DAILY #30 tabs 11/11/21 [Rx Confirmed 05/30/22] pantoprazole 20 mg tablet,delayed release 20 mg PO DAILY 05/19/22 [History Confirmed 05/30/22] amoxicillin 875 mg-potassium clavulanate 125 mg tablet 1 tab PO BID diabetic foot ulcer 10 days #20 tabs 05/30/22 [Rx] cephalexin 500 mg capsule 500 mg PO BID 7 days #14 caps 06/01/22 [Rx] cyclobenzaprine 5 mg tablet 5 mg PO BID PRN muscle spasm #14 tabs 06/01/22 [Rx] oxycodone-acetaminophen 5 mg-325 mg tablet 1 tab PO Q6H PRN pain 3 days #10 tabs 06/01/22 [Rx] miconazole nitrate 2 % topical cream 1 applic topical BID 5 days #30 grams 06/09/22 [Rx] doxycycline hyclate 100 mg capsule 100 mg PO BID 7 days #14 caps 06/19/22 [Rx] Allergies No Known Allergies Allergy (Verified 06/19/22 13:37) Wound/Ulcer Right Toe - 2nd Digit: Bed Appearance: Yellow Percent of Wound Bed Granulated/Red: 0 Percent of Devitalized: 100 Length (cm): 0.3 Width (cm): 0.4 Depth (cm): 0.2 CM Sq: 0.120 Surrounding Tissue Appearance: Callous Surrounding Tissue Temp: Warm Drainage Amount: Scant Drainage Description: Serosanguineous Drainage Odor: No Odor Lidocaine Applied Topically: 2% Jelly Procedures Time Out: 2 Patient Identifiers, Correct Patient, Correct Side/Site, Correct Procedure and Safety Issues Reviewed Procedure: Procedure: Subcutaneous tissue debridement of ulceration distal second right toe for treatment of nonhealing ulceration. Once anesthesia was achieved and found to be adequate utilizing 2% lidocaine gel the ulceration on the second right toe was debrided with a #15 blade of necrotic epidermal, dermal, and subcutaneous tissue point of cavity bed bleeding. Patient tolerated the procedure well without complication and hemostasis was achieved by applying pressure. 0.04 cm? of the ulceration was debrided to capillary bed bleeding today. Results Height: 6 ft 6 in Weight: 317 lb Body Mass Index: 36.6 Assessment/Plan Assessment/Plan (1) Ulcer of second toe of right foot: Qualifiers: Non-pressure ulcer stage: limited to breakdown of skin Qualified Code(s): L97.511 - Non-pressure chronic ulcer of other part of right foot limited to breakdown of skin Code(s): L97.519 - Non-pressure chronic ulcer of other part of right foot with unspecified severity Status: Chronic (2) Diabetes mellitus due to underlying condition, controlled, with diabetic neuropathy: Code(s): E08.40 - Diabetes mellitus due to underlying condition with diabetic neuropathy, unspecified Status: Chronic (3) Chronic diabetic ulcer of foot determined by examination: Code(s): E11.621 - Type 2 diabetes mellitus with foot ulcer; L97.509 - Non-pressure chronic ulcer of other part of unspecified foot with unspecified severity Status: Chronic (4) Chronic ulcer of right foot with fat layer exposed: Code(s): L97.512 - Non-pressure chronic ulcer of other part of right foot with fat layer exposed Status: Chronic Plan: I explained to the patient that when you have an amputation of the right great toe a lot more pressure of is applied to the distal aspect of the second right toe. I advised the patient stay off his foot is much as possible for the next week. I dispensed a digital crest pad that he is to wear on his right foot to offload the distal aspect of the second right toe. He is to put this on after the dressing has been applied to the right foot. Orders were written to [facility] to wash the ulceration with Vashe followed by applying Iodoflex and a gauze dressing secured with tape 3 times a week. I explained to the patient that his ulceration has healed considerably just in the past week. The ulceration today measures 0.04 cm?. If the patient should notice any redness, swelling, nausea, vomiting, fever, chills or any purulent drainage coming from the wound he is to go to the emergency room. Dictated By: Braulio Hauser DPM DD/ 1111 Signed By: <Electronically signed by SANJU Hauser> 06/20/22 [address] [facility] Work Phone: 1(757) 523-206307-07-2022 Progress note Author Braulio Hauser [facility] June 06, 2022 9:03am Note Date/Time June 06, 2022 9:03a m [facility] [address] [place] [address] Wound Center Provider Note Signed Patient: Trey Figueroa Angie Sierra MR#: [id number] : 1950 Acct:[id number] Age/Sex: 72 / M Copies to: [facility] Braulio Hauser DPM~ HPI Date of Visit Date of Visit: Date of Service: 06/06/2022 Time of Service: 09:00 Narrative HPI: This is a 72-year-old male who presents the wound care clinic today for evaluation and treatment of an ulceration on the distal aspect of his second right toe. Patient currently denies any history of nausea, vomiting, fever or chills. Patient is currently doing wound care as ordered. Patient also states he is currently taking the Augmentin that I prescribed last week and he has about another weeks worth left. Subjective Pain Right Foot: Pain Description: Throbbing Pain Intensity: 7 Wound/Ulcer History When did wound start?: 3 months ago Mode of Arrival/ Electronic Security Specialist: W/C van Assistive Device Used Today: Wheelchair Lives with:: Alone Appetite Description: Within Normal Limits Who helps w/ dressing change?: Home Health Smoking Status: Never smoker [facility] Medical History Acid reflux Arrhythmia Asthma Blood clot of artery under arm Colon polyp Crush injury to thumb bone grafting done Diabetes High blood cholesterol Hypertension Neuropathy Pain in right foot Paralysis [id number] Shingles Surgical History H/O elbow surgery lt H/O eye surgery rt H/O hand surgery lt Previous back surgery x 2 Family History Mother Diabetes Social History Smoking Status: Never smoker Tobacco Type: cigarettes Substance Use Type: None Substance Abuse Comment: Quit alcohol and tobacco 37 years ago Social History Comments: nephew Grafts History of Graft History of Graft?: No Exam Physical Exam Vital Signs: Temp Pulse Resp BP 97.5 F L 108 H 18 161/97 H 06/06/22 08:48 06/06/22 08:48 06/06/22 08:48 06/06/22 08:48 Lower/Upper Extremity Exam Vascular Exam-Pulses Left Brachial: Pulse Assessment Method: NIBP Right Dorsalis Pedis: Pulse Assessment Method: Palpation Right Posterior Tibial: Pulse Assessment Method: Palpation Objective Meds/Allergies Home Medications amlodipine 10 mg tablet (Norvasc) 10 mg PO DAILY 11/15/19 [History Confirmed 05/30/22] hydroxyzine pamoate 50 mg capsule (Vistaril) 50 mg PO TID PRN 11/15/19 [History Confirmed 05/30/22] aspirin 81 mg chewable tablet 81 mg PO DAILY 12/22/19 [History Confirmed 05/30/22] dicyclomine 20 mg tablet 20 mg PO TID 12/22/19 [History Confirmed 05/30/22] hydrochlorothiazide 25 mg tablet 25 mg PO DAILY 12/22/19 [History Confirmed 05/30/22] losartan 25 mg tablet 25 mg PO DAILY 12/22/19 [History Confirmed 05/30/22] terazosin 5 mg capsule 10 mg PO QHS 12/22/19 [History Confirmed 05/30/22] gabapentin 300 mg capsule 900 mg PO TID 03/21/20 [History Confirmed 05/30/22] albuterol sulfate 90 mcg/actuation aerosol inhaler 1 puff INHALATION Q4H PRN 02/19/21 [History Confirmed 05/30/22] amitriptyline 150 mg tablet 150 mg PO DAILY 02/19/21 [History Confirmed 05/30/22] ammonium lactate 12 % lotion 1 applic TOPICAL BID 02/19/21 [History Confirmed 05/30/22] docusate sodium 100 mg capsule (Colace) 100 mg PO DAILY 02/19/21 [History Confirmed 05/30/22] dutasteride 0.5 mg capsule 0.5 mg PO DAILY 02/19/21 [History Confirmed 05/30/22] fluticasone propionate 110 mcg/actuation HFA aerosol inhaler 1 puff INHALATION Q12H 02/19/21 [History Confirmed 05/30/22] insulin glargine 100 unit/mL subcutaneous solution (Lantus U-100 Insulin) 45 unit SUBCUT QHS 02/19/21 [History Confirmed 05/30/22] insulin lispro 100 unit/mL subcutaneous solution (Humalog U-100 Insulin) 11 unitSUBCUT ACHS 02/19/21 [History Confirmed 05/30/22] meloxicam 15 mg tablet 15 mg PO DAILY 02/19/21 [History Confirmed 05/30/22] metoprolol tartrate 100 mg tablet 100 mg PO DAILY 03/22/21 [History Confirmed 05/30/22] nitroglycerin 0.4 mg sublingual tablet 0.4 mg SUBLINGUAL Q5-15MIN PRN 02/19/21 [History Confirmed 05/30/22] tramadol 50 mg tablet 50 mg PO BID PRN 11/08/21 [History Confirmed 05/30/22] atorvastatin 40 mg tablet 40 mg PO DAILY #30 tab 11/11/21 [Rx Confirmed 05/30/22] pantoprazole 20 mg tablet,delayed release 20 mg PO DAILY 05/19/22 [History Confirmed 05/30/22] amoxicillin 875 mg-potassium clavulanate 125 mg tablet 1 tab PO BID 10 Days #20 tab 05/30/22 [Rx] cephalexin 500 mg capsule 500 mg PO BID 7 Days #14 cap 06/01/22 [Rx] cyclobenzaprine 5 mg tablet 5 mg PO BID PRN #14 tab 06/01/22 [Rx] oxycodone-acetaminophen 5 mg-325 mg tablet 1 tab PO Q6H PRN 3 Days #10 tab 06/01/22 [Rx] Allergies No Known Allergies Allergy (Verified 05/31/22 18:40) Wound/Ulcer Right Toe - 2nd Digit: Bed Appearance: Other Percent of Wound Bed Granulated/Red: 0 Percent of Devitalized: 100 Length (cm): 1.0 Width (cm): 0.9 Depth (cm): 0.2 CM Sq: 0.900 Surrounding Tissue Appearance: Callous Surrounding Tissue Temp: Warm Drainage Amount: Scant Drainage Description: Serosanguineous Drainage Odor: No Odor Procedures Time Out: 2 Patient Identifiers, Correct Patient, Correct Side/Site, Correct Procedure and Safety Issues Reviewed Procedure: Procedure: Subcutaneous tissue debridement of ulceration distal second right toe for treatment of nonhealing ulceration. Once anesthesia was achieved and found to be adequate utilizing 2% lidocaine gel the ulceration was debrided with a #15 blade of necrotic epidermal, dermal, and subcutaneous tissue point of capillary bed bleeding. Patient tolerated the procedure well without complication and hemostasis was achieved by applying pressure. 0.04 cm? of the ulceration was debrided to capillary bed bleeding today. Results Height: 6 ft 6 in Weight: 317 lb Body Mass Index: 36.6 Assessment/Plan Assessment/Plan (1) Ulcer of second toe of right foot: Qualifiers: Non-pressure ulcer stage: limited to breakdown of skin Qualified Code(s): L97.511 - Non-pressure chronic ulcer of other part of right foot limited to breakdown of skin Code(s): L97.519 - Non-pressure chronic ulcer of other part of right foot with unspecified severity Status: Chronic (2) Diabetes mellitus due to underlying condition, controlled, with diabetic neuropathy: Code(s): E08.40 - Diabetes mellitus due to underlying condition with diabetic neuropathy, unspecified Status: Chronic (3) Chronic diabetic ulcer of foot determined by examination: Code(s): E11.621 - Type 2 diabetes mellitus with foot ulcer; L97.509 - Non-pressure chronic ulcer of other part of unspecified foot with unspecified severity Status: Chronic (4) Chronic ulcer of right foot with fat layer exposed: Code(s): L97.512 - Non-pressure chronic ulcer of other part of right foot with fat layer exposed Status: Chronic Plan: I explained to the patient that when you have an amputation of the right great toe a lot more pressure of is applied to the distal aspect of the second right toe. I advised the patient stay off his foot is much as possible for the next week. I dispensed a digital crest pad that he is to wear on his right foot to offload the distal aspect of the second right toe. He is to put this on after the dressing has been applied to the right foot. Orders were written to [facility] to wash the ulceration with Vashe followed by applying Iodoflex and a gauze dressing secured with tape 3 times a week. Patient is to continue taking the Augmentin 875 mg was dispensed to the patient to be taken twice a day for 10 days. I explained to the patient that his ulceration has healed considerably just in the past week. The ulceration today measures 0.04 cm?. If the patient should notice any redness, swelling, nausea, vomiting, fever, chills or any purulent drainage coming from the wound he is to go to the emergency room. Time spent with patient Time Spent With Patient (min): 15 Dictated By: Braulio Hauser DPM DD/ 0900 Signed By: <Electronically signed by SANJU Hauser> 06/06/22 09 [facility] Work Phone: [phone]) 638-998106-30-2022 Progress note Author Braulio Hauser [facility] May 30, 2022 11:59am Note Date/Time May 30, 2022 11:5 9am [facility] [address] [place] [address] Wound Center Provider Note Signed Patient: Trey Figueroa SR MR#: [id number] : 1950 Acct:[id number] Age/Sex: 72 / M Copies to: [facility] Braulio Hauser DPM~ HPI Date of Visit Date of Visit: Date of Service: 05/30/2022 Time of Service: 11:52 Narrative HPI: This is a 72-year-old male who presents the wound care clinic today for evaluation and treatment of an ulceration on the distal aspect of his second right toe. Patient was seen in the hospital on May 18 for a infected right second toe. Patient was seen by Dr. Gonzales while in the hospital. X-rays in thehospital revealed no evidence of bone infection and it was determined that they would can continue conservative treatment and wound care to the second right toein order to potentially heal this ulceration. Patient was discharged on Augmentin which she just completed yesterday. Patient was given a 9 days worth supply. Patient currently denies any history of nausea, vomiting, fever or chills. Patient states that a few weeks ago he noticed the infection he was unable to get into the wound care clinic he went to his family doctor at [facility] was given an antibiotic which reduced the swelling. However, over time the most to get reinfected which caused his toe and whole foot to swell which then prompted him to go to the ER and then he was admitted then on May 18 and was discharged on May 20, 2022. Subjective Pain Right Foot: Pain Intensity: 7 Wound/Ulcer History When did wound start?: 3 months ago Mode of Arrival/ Electronic Security Specialist: W/C van Assistive Device Used Today: Wheelchair Lives with:: Alone Appetite Description: Within Normal Limits Who helps w/ dressing change?: Home Health Smoking Status: Never smoker [facility] Medical History Acid reflux Arrhythmia Asthma Blood clot of artery under arm Colon polyp Crush injury to thumb bone grafting done Diabetes High blood cholesterol Hypertension Neuropathy Pain in right foot Paralysis [id number] Shingles Surgical History H/O elbow surgery lt H/O eye surgery rt H/O hand surgery lt Previous back surgery x 2 Family History Mother Diabetes Social History Smoking Status: Never smoker Tobacco Type: cigarettes Substance Use Type: None Substance Abuse Comment: Quit alcohol and tobacco 37 years ago Social History Comments: nephew Grafts History of Graft History of Graft?: No Exam Physical Exam Vital Signs: Temp Pulse Resp BP 98.1 F 75 18 128/75 05/30/22 11:07 05/30/22 11:07 05/30/22 11:07 05/30/22 11:07 Additional Findings Additional Findings: 3 views of the right foot that were taken on May 18, 2022 were reviewed and it was determined that there was no evidence of any kind of bony erosion noted on the distal aspect of the second right toe significant for osteomyelitis. There does appear to be a amputation of the distal phalanx on the right great toe. Lower/Upper Extremity Exam Vascular Exam-Pulses Left Brachial: Pulse Assessment Method: NIBP Right Dorsalis Pedis: Pulse Assessment Method: Palpation Right Posterior Tibial: Pulse Assessment Method: Palpation Objective Meds/Allergies Home Medications amlodipine 10 mg tablet (Norvasc) 10 mg PO DAILY 11/15/19 [History Confirmed 05/30/22] hydroxyzine pamoate 50 mg capsule (Vistaril) 50 mg PO TID PRN 11/15/19 [History Confirmed 05/30/22] aspirin 81 mg chewable tablet 81 mg PO DAILY 12/22/19 [History Confirmed 05/30/22] dicyclomine 20 mg tablet 20 mg PO TID 12/22/19 [History Confirmed 05/30/22] hydrochlorothiazide 25 mg tablet 25 mg PO DAILY 12/22/19 [History Confirmed 05/30/22] losartan 25 mg tablet 25 mg PO DAILY 12/22/19 [History Confirmed 05/30/22] terazosin 5 mg capsule 10 mg PO QHS 12/22/19 [History Confirmed 05/30/22] gabapentin 300 mg capsule 900 mg PO TID 03/21/20 [History Confirmed 05/30/22] albuterol sulfate 90 mcg/actuation aerosol inhaler 1 puff INHALATION Q4H PRN 02/19/21 [History Confirmed 05/30/22] amitriptyline 150 mg tablet 150 mg PO DAILY 02/19/21 [History Confirmed 05/30/22] ammonium lactate 12 % lotion 1 applic TOPICAL BID 02/19/21 [History Confirmed 05/30/22] docusate sodium 100 mg capsule (Colace) 100 mg PO DAILY 02/19/21 [History Confirmed 05/30/22] dutasteride 0.5 mg capsule 0.5 mg PO DAILY 02/19/21 [History Confirmed 05/30/22] fluticasone propionate 110 mcg/actuation HFA aerosol inhaler 1 puff INHALATION Q12H 02/19/21 [History Confirmed 05/30/22] insulin glargine 100 unit/mL subcutaneous solution (Lantus U-100 Insulin) 45 unit SUBCUT QHS 02/19/21 [History Confirmed 05/30/22] insulin lispro 100 unit/mL subcutaneous solution (Humalog U-100 Insulin) 11 unitSUBCUT ACHS 02/19/21 [History Confirmed 05/30/22] meloxicam 15 mg tablet 15 mg PO DAILY 02/19/21 [History Confirmed 05/30/22] metoprolol tartrate 100 mg tablet 100 mg PO DAILY 02/19/21 [History Confirmed 05/30/22] nitroglycerin 0.4 mg sublingual tablet 0.4 mg SUBLINGUAL Q5-15MIN PRN 02/19/21 [History Confirmed 05/30/22] tramadol 50 mg tablet 50 mg PO BID PRN 11/08/21 [History Confirmed 05/30/22] atorvastatin 40 mg tablet 40 mg PO DAILY #30 tab 11/11/21 [Rx Confirmed 05/30/22] pantoprazole 20 mg tablet,delayed release 20 mg PO DAILY 05/19/22 [History Confirmed 05/30/22] oxycodone-acetaminophen 5 mg-325 mg tablet 1 tab PO BID PRN 7 Days #14 tab 05/20/22 [Rx Confirmed 05/30/22] amoxicillin 875 mg-potassium clavulanate 125 mg tablet 1 tab PO BID 10 Days #20 tab 05/30/22 [Rx] Allergies No Known Allergies Allergy (Verified 05/18/22 22:42) Wound/Ulcer Right Toe - 2nd Digit: Bed Appearance: [place] and Yellow Percent of Wound Bed Granulated/Red: 20 Percent of Devitalized: 80 Length (cm): 1.0 Width (cm): 0.9 Depth (cm): 0.2 CM Sq: 0.900 Surrounding Tissue Appearance: Callous Surrounding Tissue Temp: Warm Drainage Amount: Small Drainage Description: Serosanguineous Drainage Odor: No Odor Procedures Time Out: 2 Patient Identifiers, Correct Patient, Correct Side/Site, Correct Procedure and Safety Issues Reviewed Procedure: Procedure: Subcutaneous tissue debridement of ulceration distal aspect second right toe for treatment of nonhealing ulceration. Once anesthesia was achieved utilizing 2% lidocaine gel and found to be adequate the ulceration was debrided with a soft tissue nipper of necrotic epidermal, dermal, and subcutaneous tissue the point of capillary bed bleeding. Patient tolerated procedure well without complication and hemostasis was achieved by applying pressure. 0.9 cm? of the ulceration was debrided to capillary bed bleeding today. Results Height: 6 ft 6 in Weight: 317 lb Body Mass Index: 36.6 Assessment/Plan Assessment/Plan (1) Ulcer of second toe of right foot: Qualifiers: Non-pressure ulcer stage: limited to breakdown of skin Qualified Code(s): L97.511 - Non-pressure chronic ulcer of other part of right foot limited to breakdown of skin Code(s): L97.519 - Non-pressure chronic ulcer of other part of right foot with unspecified severity Status: Chronic (2) Diabetes mellitus due to underlying condition, controlled, with diabetic neuropathy: Code(s): E08.40 - Diabetes mellitus due to underlying condition with diabetic neuropathy, unspecified Status: Chronic (3) Chronic diabetic ulcer of foot determined by examination: Code(s): E11.621 - Type 2 diabetes mellitus with foot ulcer; L97.509 - Non-pressure chronic ulcer of other part of unspecified foot with unspecified severity Status: Chronic (4) Chronic ulcer of right foot with fat layer exposed: Code(s): L97.512 - Non-pressure chronic ulcer of other part of right foot with fat layer exposed Status: Chronic Plan: I explained to the patient that when you have an amputation of the right great toe a lot more pressure of is applied to the distal aspect of the second right toe. I advised the patient stay off his foot is much as possible for the next week. I wrote I will try to make him or bring in a distal crest pad which she can then begin to wear under the second toe next week to take the pressure off the tip of the toe. In the meantime orders were written for home health to wash the ulceration with Vashe followed by applying Iodoflex and a gauze dressing secured with tape 3 times a week. A prescription for Augmentin 875 mg was dispensed to the patient to be taken twice a day for 10 days. If the patient should notice any redness, swelling, nausea, vomiting, fever, chills or any purulent drainage coming from the wound he is to go to the emergency room. Dictated By: Braulio Hauser DPM DD/ 115 Signed By: <Electronically signed by SANJU Hauser> 05/30/22 [address] [facility] Work Phone: [phone] 612-441704-15-2022 History of Present illness Narrative* Jose Perez, GOYO - 03/15/2022 1:11 PM EDT ASSESSMENT/PLAN: 1. Pseudophakia, left eye - ICD9: V43.1, ICD10: Z96.1 (primary diagnosis) Doing well at the end of the perioeprative period SHOOT for PLANO Return to clinic if signs and/or symptoms changers Optional spec Rx for near Vs OTC readers 2. History of enucleation of right eyeball - ICD9: V45.78, ICD10: Z90.01 3. 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 Type 2 diabetes mellitus without retinopathy (HCC) - ICD9: 250.00, ICD10: E11.9 Monitor Monocular precautions I have confirmed and edited as necessary the relevant ophthalmic history, ROS, and the exam findings as obtained by others. I have seen and examined this patient. I also have reviewed and agree with the assessment and plan as stated above and agree with all of its relevant components. Jose Perez, OD March 15, 2022 1:11 PM [facility] Miscellaneous Notes* Telephone Encounter - Zeny Brice MD - 03/05/2022 11:13 PM EDT I returned a call from the patient at 11:13 PM. He reports that he misplaced his eye drops and is hoping to obtain refills. The patient is currently taking prednisolone acetate and ketorolac QID; based on his record, it looks like he should have tapered down by now but he reports that he had not been told to do so. I willrefill the medications and forward this encounter to his team so they can dose-adjust as needed. Zeny Brice MD Ophthalmology Resident documented in this encounterCl[facility]02-21-2022 NoteHNO ID: [id number] Author: Christine Lisa RN Service: ? Author Type: Registered Nurse Type: Nursing Progress Note Filed: 01/21/2022 4:42 PM Note Text: 1640 Transport availableWhittier Rehabilitation [id number] NoteHNO ID: [id number] Author: Alicia Izaguirre MD Service: Pain Management Author Type: Physician Type: Progress Notes Filed: 01/21/2022 2:30 PM Note Text: Katerina Carpenter APRN.HEIDY Nurse Practitioner Specialty: Anesthesiology Progress Notes ? Signed Date of Service: 01/21/2022 ?1:39 PM []Hide copied text []Hover for details Pt seen at [facility] for elective TFE SI. Pt had difficulty with positioning in OR and appeared to have cardiac rhythm abnormalities. Procedure placed on hold. EKG obtained and compared to EKG taken in 10/21[facility] per Dr. Miller (card), no changes reflected upon comparison, pt also given 2 doses of D50 50CC infusion for lower blood sugars as pt has been NPO since yesterday. Pt currently resting comfortably and awaiting procedure. Pt re added to schedule for a caudal block. Patient procedure aborted early this afternoon because some possible changes in the EKG when he was on the OR table and he was unable to tolerate the procedure. Patient old EKG were checked and compared to the current 1 and there were no difference. Patient blood sugar was evaluated and adjusted. Patient would like to continue with the procedure today. Explained to the patient that he could not tolerate a transforaminal approach so the best option to keep him safe is to proceed with a caudal approach which is more or less the same procedure but with a different approach but the goal is the same. He understand and agreed on proceedingWhittier Rehabilitation [id number] NoteHNO ID: [id number] Author: Katerina Carpenter APRN.HEIDY Service: ? Author Type: Nurse Practitioner Type: Progress Notes Filed: 01/21/2022 1:58 PM Note Text: Pt seen at [facility] for elective TFE SI. Pt had difficulty with positioning in OR and appeared to have cardiac rhythm abnormalities. Procedure placed on hold. EKG obtained and compared to EKG taken in 10/21[facility] per Dr. Miller (card), no changes reflected upon comparison, pt also given 2 doses of D50 50CC infusion for lower blood sugars as pt has been NPO since yesterday. Pt currently resting comfortably and awaiting procedure. Pt re added to schedule for a caudal block.[facility] 01-21-2022 NoteHNO ID: [id number] Author: Christine Lisa RN Service: ? Author Type: Registered Nurse Type: Nursing Progress Note Filed: 01/21/2022 1:01 PM Note Text: 1215 BS rechecked with preprocedure 82Wh[facility] [id number] History of Present illness Narrative* Monica Demarco, RT(R) - 12/20/2021 11:20 AM EST Radiology Service Progress Note DATE OF SERVICE: December 20, 2021 TIME: 12:40 PM PATIENT IDENTITY VERIFICATION COMPLETED USING TWO (2) STANDARD IDENTIFIERS: Name and Date of confirmed by patient verbally. FALL SCREENING: Has the patient had 2 falls in the last year or 1 fall with injury or currently using an Ambulatory Assistive Device (Walker, Cane, Wheelchair, Crutches, etc.)? Yes, Patient High Riskfor Falls What interventions were put in place to prevent falls during this visit? Offered Assistance with Transfers/Clothing PATIENT GENDER DATA: Male PATIENT RELEVANT IMPLANT DATA REVIEWED: Not Applicable ALLERGIES: Reviewed and unchanged CONTRAST ALLERGY: NO. EXAM: CT -CONTRAST INDUCED NEPHROPATHY RISK FACTORS: Patient age > 60 years CREATININE: Creatinine Date Value Ref Range Status 03/29/2005 0.80 0.6 - 1.3 mg/dL Final 03/11/2005 1.00 0.6 - 1.3 mg/dL Final 03/08/2005 1.00 0.6 - 1.3 mg/dL Final Creatinine (POCT) Date Value Ref Range Status 12/20/2021 1.30 0.7 - 1.4 mg/dL Final eGFR-All Other Races (POCT) Date Value Ref Range Status 12/20/2021 54 mL/min/1.73 m2 Final eGFR- (POCT) Date Value Ref Range Status 12/20/2021 >60 mL/min/1.73 m2 Final P.O.C.T. RESULTS: POC done: Yes, See Lab Tab December 20, 2021 TREATMENT: N/A PERIPHERAL IV DATA: Ambulatory: A peripheral IV was started in the Left forearm with a Angio cath: 22 gauge. RADIOLOGY DEPARTMENT: CT; Exam(s) Completed: Orbits SIGNATURE: RT Jasvir(R) PATIENT NAME: Trey Figueroa DATE: December 20, 2021 TIME: 12:40 PM documented in this encounterOhio[facility] Narrative - Reported * TREY FIGUEROA is being seen for an initial evaluation of. * Patient is a 71-year-old Afro-[place] gentleman seen in cardiology consultation at the [facility] following recent stress imaging that was read by one of our partners and revealed reduced left ventricular function with ejection fraction of 33% no perfusion abnormalities. Notably, patient has very frequent PVCs historically as well as currently today as evidenced on today'sECG and during the stress testing. * He is seen in preoperative risk assessment and clearance prior to shrapnel removal of his right thigh from remote trauma. * He does complain of worsening exertional dyspnea over the past several months he also admits to exertional chest discomfort lasting approximately 10 to 15 minutes resolves with rest. 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 He is however able to ambulate approximately 20 to 30 feet on his own. He is otherwise ambulates with wheelchair assistance. * His ECG today demonstrates sinus rhythm with left axis, PACs and PVCs that are multifocal. * His comorbidities include obesity, diabetes, hypertension, hyperlipidemia, former smoker. * Patient has a undisclosed cardiomyopathy of unknown etiology with evidence of multifocal PVCs, withrisk factors as noted. * Recommendations are to proceed with invasive assessment with cardiac catheterization. Risk benefitsalternatives and informed decision-making process performed for over 30 minutes this afternoon we will proceed, initiate aspirin 81 daily, and follow-up thereafterwards. If in fact he has anatomy that is deemed worthy of revascularization of course physiologic evaluation and possible revascularization were also discussed with him. We also discussed that if in fact he undergoes revascularization that would delay his surgical intervention for his thigh. [facility] [address] DO Work Phone: Consult note Author W Maxi Mendez [facility] July 31, 2023 5:13pm Note Date/Time July 31, 2023 3: 50pm [facility] [address] [place] [address] Cardiology Consult Note Signed Patient: Trey Figueroa Sr MR#: [id number] : 1950 Acct:[id number] Age/Sex: 73 / M Adm Date: 3 Loc: Room: [address] [place] [address] Type: ADM INOo Attending Dr: Eryn Sands MD Copies to: Georgi Marshall DO, [facility] Eryn Sands MD W Maxi Mendez DO~ Cardiology HPI History of Present Illness Consult Date: 07/31/23 Reason for Consult: Chest pain HPI: The patient is a 73-year-old man seen in cardiology consultation at the request the hospitalist and in conjunction with [employer] Dr. Marshall and patient who presents with a history of hypertension dyslipidemia insulin- dependent type 2 diabetes mellitus and gastroesophageal reflux disease who presented to the ED complaining of intermittent chest pain over the last 4 to 6 weeks. Patient reports that he has been having intermittent chest pain that he describes as sharp occurring in the mid to left chest. He reports that this hasbeen getting worse up until yesterday when he had a serious bout of this that radiated down to his left arm as well. He reports sob with these episodes. Patient reports that over the past several weeks while this has been going on the episodes are not associated with anything in specific including exertion as he has had them while sitting and laying down as well. Patient reports that yesterday's episode happened when he was picking up a chair. He denies any history of stroke or IA in the past. He does have documented first-degree AV block which he is aware of. Patient is a former smoker. Patient reports that he thinks his last A1c was 7.4% Patient reports some abdominal pain, n/v/d, numbness, tingling, lightheadedness,blurry vision. Patient denies any other acute complaints or concerns at this time. Patient's GAGE risk score is 2?3 (not truly cardiac discomfort therefore score of 2) Left heart catheterization performed by myself in 2020 was noted for completely normal coronary arteries and ventricular function. There is no evidence of ACS at this time, recommend continue primary preventive therapies. Cardiology will sign off Review of Systems Review of Systems All other systems reviewed & are negative unless noted below or in HPI Review of systems: A 10-point review of systems was performed and was negative unless otherwise noted in HPI. Constitutional Constitutional: Reports as per HPI Cardiovascular Cardiovascular: Reports chest pain at rest (Sharp, stabbing, right and left- sided) Gastrointestinal Gastrointestinal: Reports system reviewed and no additional complaints, except as documented Musculoskeletal Musculoskeletal: Reports as per HPI (Neuromuscular weakness) and Reports abnormal gait [facility] Medical History Acid reflux Arrhythmia Asthma Blood clot of artery under arm Colon polyp Crush injury to thumb bone grafting done Diabetes High blood cholesterol Hypertension Neuropathy Pain in right foot Paralysis [id number] Right foot ulcer Shingles Surgical History H/O elbow surgery lt H/O eye surgery rt H/O hand surgery lt Previous back surgery x 3 Family History (Updated 07/30/23 @ 23:12 by Viry Malcolm LPN) Mother No problems noted. Father Diabetes Social History Smoking Status: Former smoker Tobacco Type: cigarettes Substance Use Type: None Substance Abuse Comment: Quit alcohol and tobacco 37 years ago Social History Comments: nephew Meds Medications and Allergies Allergies No Known Allergies Allergy (Verified 07/30/23 23:13) Home Medications amlodipine 10 mg tablet (Norvasc) 10 mg PO DAILY 11/15/19 [History Confirmed 07/30/23] hydroxyzine pamoate 50 mg capsule (Vistaril) 50 mg PO TID PRN HIVES 11/15/19 [History Confirmed 07/30/23] aspirin 81 mg chewable tablet 81 mg PO DAILY 12/22/19 [History Confirmed 07/30/23] dicyclomine 20 mg tablet 20 mg PO TID 12/22/19 [History Confirmed 07/30/23] hydrochlorothiazide 25 mg tablet 25 mg PO DAILY 12/22/19 [History Confirmed 07/30/23] losartan 25 mg tablet 25 mg PO DAILY 12/22/19 [History Confirmed 07/30/23] terazosin 5 mg capsule 10 mg PO TID 12/22/19 [History Confirmed 07/31/23] albuterol sulfate 90 mcg/actuation aerosol inhaler 1 puff inhalation Q4H PRN Wheezing 02/19/21 [History Confirmed 07/30/23] amitriptyline 150 mg tablet 150 mg PO QHS 02/19/21 [History Confirmed 07/31/23] ammonium lactate 12 % lotion 1 applic topical BID 02/19/21 [History Confirmed 07/30/23] docusate sodium 100 mg capsule (Colace) 100 mg PO DAILY 02/19/21 [History Confirmed 07/30/23] fluticasone propionate 110 mcg/actuation HFA aerosol inhaler 1 puff inhalation Q12H 02/19/21 [History Confirmed 07/30/23] insulin glargine 100 unit/mL subcutaneous solution (Lantus U-100 Insulin) 45 unit subcut QHS 02/19/21 [History Confirmed 07/30/23] insulin lispro 100 unit/mL subcutaneous solution (Humalog U-100 Insulin) 11 unitsubcut ACHS 02/19/21 [History Confirmed 07/30/23] metoprolol tartrate 100 mg tablet 125 mg PO DAILY 02/19/21 [History Confirmed 07/31/23] nitroglycerin 0.4 mg sublingual tablet 0.4 mg sublingual Q5-15MIN PRN Chest Pain02/19/21 [History Confirmed 07/30/23] atorvastatin 40 mg tablet 40 mg PO DAILY #30 tabs 11/11/21 [Rx Confirmed 07/30/23] miconazole nitrate 2 % topical cream 1 applic topical BID 5 days #30 grams 07/10/22 [Rx Confirmed 07/30/23] donepezil 10 mg tablet 10 mg PO DAILY 08/11/22 [History Confirmed 07/30/23] tramadol 50 mg tablet 50 mg PO Q8H PRN pain 3 days #9 tabs 09/05/22 [Rx Confirmed 07/30/23] pantoprazole 40 mg tablet,delayed release 40 mg PO BID #60 tabs 01/01/23 [Rx Confirmed 07/30/23] ipratropium bromide 21 mcg (0.03 %) nasal spray 21 mcg intranasal TID 07/30/23 [History Confirmed 07/31/23] lisinopril 40 mg tablet 40 mg PO DAILY 07/30/23 [History Confirmed 07/30/23] pravastatin 40 mg tablet 40 mg PO DAILY 07/30/23 [History Confirmed 07/30/23] cyclobenzaprine 10 mg tablet 10 mg PO DAILY PRN Chronic pain 07/31/23 [History Confirmed 07/31/23] erythromycin 5 mg/gram (0.5 %) eye ointment 1 applic Eye-Right BID 07/31/23 [History Confirmed 07/31/23] finasteride 5 mg tablet 5 mg PO DAILY 07/31/23 [History Confirmed 07/31/23] Exam Physical Exam Vital Signs: Temp Pulse Resp BP Pulse Ox O2 Del Method 98.2 F 87 18 125/61 97 Room Air 07/31/23 08:56 07/31/23 08:56 07/31/23 08:56 07/31/23 08:56 07/31/23 08:56 07/31/23 09:05 Narrative: General -awake, alert, oriented ?3, not in acute distress, lying in upright position Eyes -patient does have an eye patch over his right eye from a recent cataract surgery, left eye: Clear sclera and conjunctiva, extraocular eye movements grossly intact, PERRLA Cardiovascular -bradycardic rate and regular rhythm with no murmurs, rubs or gallops Pulmonary - CTA b/l without RRW Gastrointestinal - abdomen is soft, nondistended, nontender, normoactive bowel sounds, there is no guarding, rebound or rigidity Upper Extremities - no edema, clubbing or cyanosis Lower Extremities -ulcer present on right lower extremity, wrapped with dressings and not unwrapped during this visit Neurological -no focal neurological deficit noted, CN II-XII grossly intact Musculoskeletal - 2/5 muscle strength in lower extremities, 4/5 muscle strength in upper extremity Results Labs 07/30/23 16:48 07/30/23 16:48 Lab results: Cardiac Enzymes 07/30/23 07/30/23 07/30/23 Range/Units 16:48 16:48 16:48 AST 25 (13-39) U/L Total Creatine Kinase 215 (30-223) U/L B-Natriuretic Peptide 39.0 (5-100) pg/mL 07/31/23 Range/Units 01:22 AST (13-39) U/L Total Creatine Kinase (30-223) U/L B-Natriuretic Peptide 46.0 (5-100) pg/mL Lipids 07/31/23 Range/Units 03:27 Triglycerides 168 H (0-149) mg/dL Cholesterol 142 (140-200) mg/dL HDL Cholesterol 40 (23-92) mg/dL Cholesterol/HDL Ratio 3.6 (<5.0) CBC 07/30/23 Range/Units 16:48 RBC 4.34 (3.90-5.60) X10E6/uL Hgb 12.5 L (13.0-17.0) g/dL Hct 37.4 L (38.8-50.0) % Plt Count 228 (150-450) x10E3/uL Neut # (Auto) 4.9 (1.8-7.7) x10E3/uL Lymph # (Auto) 1.6 (1.00-4.8) x10E3/uL Hopkins # (Auto) 0.6 (0.0-0.8) x10E3/uL Eos # (Auto) 0.2 (0.0-0.45) x10E3/uL Baso # (Auto) 0.1 (0.0-0.2) x10E3/uL Comprehensive Metabolic Panel 07/30/23 Range/Units 16:48 Sodium 135 L (136-145) mmol/L Potassium 4.4 (3.5-5.1) mmol/L Chloride 103 (98-107) mmol/L Carbon Dioxide 27.1 (21.0-31.0) mmol/L BUN 17 (7-25) mg/dL Creatinine 1.49 H (0.70-1.30) mg/dL Glucose 224 H (70-100) mg/dL Calcium 9.2 (8.6-10.3) mg/dL Direct Bilirubin 0.00 L (0.03-0.18) mg/dL Indirect Bilirubin 0.4 mg/dL AST 25 (13-39) U/L ALT 28 (7-52) U/L Alkaline Phosphatase 103 (34-104) U/L Total Protein 6.9 (6.4-8.9) gm/dL Albumin 3.7 (3.5-5.7) gm/dL Intake and Output 07/30/23 07/31/23 07/31/23 23:59 07:59 15:59 Intake Total 350 / 350 Output Total 400 / 400 425 / 1325 900 / 1325 Balance -400 / -400 -425 / -975 -550 / -975 Intake: Oral 350 / 350 Output: Urine 400 / 400 425 / 1325 900 / 1325 Other: # Voids 300 Weight 127.8 kg 129.3 kg Date of Last Bowel Movement 07/29/23 07/29/23 Patient Weight 07/31/23 23:59 Weight 129.3 kg Lab 07/30/23 16:48 PT 11.8 INR 1.0 APTT 26.3 A&P - Cardiology (1) Chest pain: Assessment/Problem Details: Troponins negative EKG showed sinus rhythm with first-degree AV block, nonacute EKG overall Echo in 10/2021: EF 55%, mild LVH and diastolic dysfunction with some septal hypokinesis Patient does have multiple risk factors for CAD including DM 2, HTN, HLD, smoking history Patient is not currently having any chest pain Plan: GAGE score of 3 Pt had negative heart cath on 10/29/21. Negative lexiscan on 09/14/21. Given above do not believe patient's chest pain is cardiac in nature and will sign off at this time to medical team for further management. 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 Future Appointments Appointment Date:02/05/2023 09:45:00 AM Scheduled Provider: Location:[facility] Surgical Services Appointment Type:Urology CALL PAT FT Appointment Date:02/12/2023 10:30:00 AM Scheduled Provider: Location:[facility] Appointment Type:Urology FT Diagnostic Tests Pending * PSA Total 01/13/23 [facility] Evaluation + Plan note Future Appointments Appointment Date:08/15/2023 01:30:00 PM Scheduled Provider: Location:[facility] Surgical Services Appointment Type:Surgery FT Appointment Date:09/25/2023 03:00:00 PM Scheduled Provider:TAYLER MYERS PA-C Location:Count includes the [facility] Appointment Type:URO Office Visit [facility] Evaluation + Plan note Future Appointments Appointment Date:09/25/2023 03:00:00 PM Scheduled Provider:TAYLER MYERS PA-C Location:[facility] includes the [facility] Appointment Type:URO 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 means Type 2 diabetes mellitus without retinopathy (HCC) Type II or unspecified type diabetes mellitus without mention of complication, not stated as uncontrolled [facility] Diagnosis Onset Date Resolution Status Abdominal pain acute Diabetes mellitus with foot ulcer acute Osteomyelitis acute Ulcer of second toe of right foot chronic Chronic diabetic ulcer of fo ot determined by examination chronic Chronic ulcer of right foot with fat layer exposed chronic [id number] chronic Ulcer of second toe of right foot chronic [facility] Work Phone: Evaluation note* Diagnosis Vitreous floaters of left eye- Primary [facility] Diagnosis Spinal stenosis of lumbar region with neurogenic claudication- Primary Spinal stenosis, lumbar region, with neurogenic claudication Status post lumbar laminectomy Other postprocedural status Spondylolisthesis of lumbar region Acquired spondylolisthesis Status post thoracic spinal fusion Chronic pain syndrome Lumbar spondylosis Lumbosacral spondylosis without myelopathy Type 2 diabetes mellitus without complication, without long-term current use of insulin (HCC) Neurogenic claudication due to lumbar spinal stenosis Spinal stenosis, lumbar region, with neurogenic claudication [facility] Diagnosis Onset Date Resolution Status Abdominal pain acute Diabetes mellitus with foot ulcer acute Osteomyelitis acute Ulcer of second toe of right foot resolved Chronic diabetic ulcer of fo ot determined by examination chronic Chronic kidney disease, stage III (moderate) chronic Diabetes chronic [id number] chronic Puncture wound chronic Wound pain chronic Chronic ulcer of right foot with fat layer exposed resolved Ulcer of second toe of right foot resolved [facility] Work Phone: Evaluation note* Diagnosis Onset Date Resolution Status Abscess of right thigh acute [id number] acute Chronic diabetic ulcer of fo ot determined by examination chronic Chronic kidney disease, stage III (moderate) chronic Diabetes chronic [id number] chronic Puncture wound chronic Wound pain chronic Chronic ulcer of right foot with fat layer exposed resolved Ulcer of second toe of right foot resolved [facility] Work Phone: Evaluation note* Diagnosis Urinary incontinence, unspecified type- Primary Spinal stenosis, lumbar region without neurogenic claudication History of spinal cord injury Personal history of other disorders of nervous system and sense organs Cauda equina syndrome (HCC) Cauda equina syndrome without mention of neurogenic bladder [facility]* Diagnosis Onset Date Resolution Status Chronic diabetic ulcer of fo ot determined by examination chronic Chronic kidney disease, stage III (moderate) chronic Diabetes chronic [id number] chronic Wound pain chronic Abscess of right thigh resol neftali Chronic ulcer of right foot with fat layer exposed resolved Puncture wound resolved Ulcer of second toe of right foot resolved [facility] Work Phone: Evaluation note* Diagnosis Onset Date Resolution Status Chronic diabetic ulcer of fo ot determined by examination chronic Chronic kidney disease, stage III (moderate) chronic Diabetes chronic [id number] chronic Wound pain chronic Abscess of right thigh resol neftali Chronic ulcer of right foot with fat layer exposed resolved Puncture wound resolved Ulcer of second toe of right foot resolved [id number] chronic [facility] Work Phone: Evaluation note* Diagnosis Spinal stenosis, lumbar region with neurogenic claudication- Primary Radiculopathy, lumbar region Thoracic or lumbosacral neuritis or radiculitis, unspecified [facility]* Diagnosis Onset Date Resolution Status Dysphagia acute ISTAP type 1 skin tear of right lower extremity acute [id number] chronic [facility] Work Phone: Evaluation note* Diagnosis Pre-op exam- Primary Preoperative examination, unspecified Gastroesophageal reflux disease without esophagitis Esophageal reflux Type 2 diabetes mellitus without complication, without long-term current use of insulin (HCC) Other hyperlipidemia Essential hypertension Unspecified essential hypertension Mild intermittent asthma without complication Unspecified asthma Benign prostatic hyperplasia with urinary retention BMI 37.0-37.9, adult Body Mass Index 37.0-37.9, adult Headaches Personal history of DVT (deep vein thrombosis) Personal history of venous thrombosis and embolism Spinal stenosis, lumbar region with neurogenic claudication Radiculopathy, lumbar region Thoracic or lumbosacral neuritis or radiculitis, unspecified [facility] Diagnosis Onset Date Resolution Status ISTAP type 1 skin tear of right lower extremity acute [id number] [facility] Work Phone: evaluation note* Diagnosis History of YAG laser capsulotomy of lens, Left Eye- Primary Pseudophakia, left eye Lens replaced by other means History of enucleation of right eyeball Personal history of surgery to other organs [facility] noteNo assessment information available[facility] Work Phone: Evaluation note* Diagnosis Spinal stenosis, lumbar region with neurogenic claudication- Primary [facility]* Diagnosis Other anophthalmos [facility]* Diagnosis Onset Date Resolution Status Chest pain acute Hypertension acute Chronic kidney disease, stage III (moderate) chronic [id number] [facility] Work Phone: evaluation note* Diagnosis Type 2 diabetes mellitus without retinopathy (HCC)- Primary Type II or unspecified type diabetes mellitus without mention of complication, not stated as uncontrolled Posterior vitreous detachment of left eye Vitreous degeneration 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, unspecified History of enucleation of right eyeball Personal history of surgery to other organs Anophthalmos of right eye Clinical anophthalmos, unspecified Pseudophakia, left eye Lens replaced by other means History of YAG laser capsulotomy of lens, Left Eye documented [facility] encounter [facility] Author Georgi Vargas [facility] July 30, 2023 9:48pm Note Date/Time July 30, 2023 9: 26pm [facility] [address] [place] [address] Hospitalist H&P Signed Patient: Trey Figueroa Sr MR#: [id number] : 1950 Acct:[id number] Age/Sex: 73 / M Adm Date: 3 Loc: 3T Room: [address] [place] [address] Type: ADM INOo Attending Dr: Georgi Vargas MD Copies to: Georgi Vargas MD [facility]~ HPI DATE OF EXAMINATION: 07/30/23 CHIEF COMPLAINT: chest pain HISTORY OF PRESENT ILLNESS: The patient is a 73-year-old man with a history of hypertension dyslipidemia insulin-dependent type 2 diabetes mellitus and gastroesophageal reflux disease presented to the ED complaining of intermittent chest pain over the last 4 to 6 weeks. According to patient, he has been having intermittent chest discomfort describedas retrosternal both sharp and pressure-like, sometimes radiating to the shoulder. He cannot identify any inciting or alleviating factors. However, today he was lifting heavy furniture and had another episode of chest pain that was more severe than previous episodes which is what prompted him to seek evaluation in the ED. The patient denies dyspnea, lightheadedness nausea vomiting but notes that he sometimes feels discomfort in his throat when he has episodes. Patient presented to the ED for evaluation vital signs on arrival were within normal limits. He was given 325 mg of aspirin and sublingual nitroglycerin after which his symptoms almost completely resolved. Has not had any recurrenceof his chest pain since that time. He is admitted for further evaluation management PMHx: as above PSHx: elbow surgery, back surgery x2, hand surgery, eye surgery SHx: former smoker quit >30 years ago, no etoh or illicit drug use FHx: negative for premature CVD ROS: 10 systems reviewed and were negative except as noted in the [facility] Medical History Acid reflux Arrhythmia Asthma Blood clot of artery under arm Colon polyp Crush injury to thumb bone grafting done Diabetes High blood cholesterol Hypertension Neuropathy Pain in right foot Paralysis [id number] Right foot ulcer Shingles Surgical History H/O elbow surgery lt H/O eye surgery rt H/O hand surgery lt Previous back surgery x 2 Family History Mother Diabetes father had DM mother did not Social History Smoking Status: Former smoker Tobacco Type: cigarettes Substance Use Type: Former User Substance Abuse Comment: Quit alcohol and tobacco 37 years ago Social History Comments: nephew Meds Medications and Allergies Allergies No Known Allergies Allergy (Verified 07/30/23 20:29) Home Medications amlodipine 10 mg tablet (Norvasc) 10 mg PO DAILY 11/15/19 [History Confirmed 07/30/23] hydroxyzine pamoate 50 mg capsule (Vistaril) 50 mg PO TID PRN HIVES 11/15/19 [History Confirmed 07/30/23] aspirin 81 mg chewable tablet 81 mg PO DAILY 12/22/19 [History Confirmed 07/30/23] dicyclomine 20 mg tablet 20 mg PO TID 12/22/19 [History Confirmed 07/30/23] hydrochlorothiazide 25 mg tablet 25 mg PO DAILY 12/22/19 [History Confirmed 07/30/23] losartan 25 mg tablet 25 mg PO DAILY 12/22/19 [History Confirmed 07/30/23] terazosin 5 mg capsule 20 mg PO QHS 12/22/19 [History Confirmed 02/13/23] albuterol sulfate 90 mcg/actuation aerosol inhaler 1 puff inhalation Q4H PRN Wheezing 02/19/21 [History Confirmed 07/30/23] amitriptyline 150 mg tablet 150 mg PO DAILY 02/19/21 [History Confirmed 07/30/23] ammonium lactate 12 % lotion 1 applic topical BID 02/19/21 [History Confirmed 07/30/23] docusate sodium 100 mg capsule (Colace) 100 mg PO DAILY 02/19/21 [History Confirmed 07/30/23] dutasteride 0.5 mg capsule 0.5 mg PO DAILY 02/19/21 [History Confirmed 07/30/23] fluticasone propionate 110 mcg/actuation HFA aerosol inhaler 1 puff inhalation Q12H 02/19/21 [History Confirmed 07/30/23] insulin glargine 100 unit/mL subcutaneous solution (Lantus U-100 Insulin) 45 unit subcut QHS 02/19/21 [History Confirmed 07/30/23] insulin lispro 100 unit/mL subcutaneous solution (Humalog U-100 Insulin) 11 unitsubcut ACHS 02/19/21 [History Confirmed 07/30/23] metoprolol tartrate 100 mg tablet 100 mg PO DAILY 02/19/21 [History Confirmed 07/30/23] nitroglycerin 0.4 mg sublingual tablet 0.4 mg sublingual Q5-15MIN PRN Chest Pain02/19/21 [History Confirmed 07/30/23] atorvastatin 40 mg tablet 40 mg PO DAILY #30 tabs 11/11/21 [Rx Confirmed 07/30/23] miconazole nitrate 2 % topical cream 1 applic topical BID 5 days #30 grams 06/09/22 [Rx Confirmed 07/30/23] donepezil 10 mg tablet 10 mg PO DAILY 08/11/22 [History Confirmed 07/30/23] tramadol 50 mg tablet 50 mg PO Q8H PRN pain 3 days #9 tabs 09/05/22 [Rx Confirmed 07/30/23] pantoprazole 40 mg tablet,delayed release 40 mg PO BID #60 tabs 01/01/23 [Rx Confirmed 07/30/23] erythromycin 5 mg/gram (0.5 %) eye ointment 07/30/23 [History] hydroxyzine pamoate 50 mg capsule mg 07/30/23 [History] ipratropium bromide 21 mcg (0.03 %) nasal spray intranasal 07/30/23 [History] lisinopril 40 mg tablet 40 mg PO DAILY 07/30/23 [History Confirmed 07/30/23] pravastatin 40 mg tablet 40 mg PO DAILY 07/30/23 [History Confirmed 07/30/23] Exam Physical Exam Vital Signs: Temp Pulse Resp BP Pulse Ox O2 Del Method 98.8 F 71 18 146/61 H 99 Room Air 07/30/23 16:13 07/30/23 20:29 07/30/23 20:29 07/30/23 20:29 07/30/23 20:29 07/30/23 20:29 Narrative: Gen: pt appears comfortable, pleasant and conversant HEENT: NC/AT mmm no oropharyngeal plaques/exudates. patch over right eye neck: supple no LAD CV: RRR no m/r/g noted Chest : CTAB respirations even/unlabored no wheezing/rales. palpation of chest wall does not reproduce pain abdomen: soft NT/ND bowel sounds x4 no palpable masses/organomegaly ext: no c/c/e distal pulses 2+ equal bilaterally neuro: a/o x4 answers questions appropriately moves all extremities no focal deficits skin: no rash GAGE Risk Score GAGE Risk Score Predictor Historical: Age > 65 Years Old, 3 or more Risk Factors: FHx,HTN,elevated cholesterol,DM,active smoker and ASA use in Past 7 Days Presentation: Recent (>/=24hr) Angina Score Risk Score (0-7): 4 Results Lab Results Labs: Laboratory Last Values Corrected WBC 7.4 X10E3/uL (4.1-10.5) 07/30/23 16:48 Uncorrected WBC Count 7.4 x10E3/uL (4.1-10.5) 07/30/23 16:48 RBC 4.34 X10E6/uL (3.90-5.60) 07/30/23 16:48 Hgb 12.5 g/dL (13.0-17.0) L 07/30/23 16:48 Hct 37.4 % (38.8-50.0) L 07/30/23 16:48 MCV 86.1 fl (83.5-101) 07/30/23 16:48 MCH 28.8 pg (27.5-35.2) 07/30/23 16:48 MCHC 33.5 g/dL (32.5-35.6) 07/30/23 16:48 RDW 14.2 % (12.0-14.8) 07/30/23 16:48 Plt Count 228 x10E3/uL (150-450) 07/30/23 16:48 MPV 6.7 fl (6.6-10.1) 07/30/23 16:48 Neut % (Auto) 66.8 % (.) 07/30/23 16:48 Lymph % (Auto) 21.1 % (.) 07/30/23 16:48 Hopkins % (Auto) 8.2 % (.) 07/30/23 16:48 Eos % (Auto) 3.1 % (.) 07/30/23 16:48 Baso % (Auto) 0.8 % (.) 07/30/23 16:48 Nucleat RBC Rel Count 0.1 /100 WBC (0-0.5) 07/30/23 16:48 Neut # (Auto) 4.9 x10E3/uL (1.8-7.7) 07/30/23 16:48 Lymph # (Auto) 1.6 x10E3/uL (1.00-4.8) 07/30/23 16:48 Hopkins # (Auto) 0.6 x10E3/uL (0.0-0.8) 07/30/23 16:48 Eos # (Auto) 0.2 x10E3/uL (0.0-0.45) 07/30/23 16:48 Baso # (Auto) 0.1 x10E3/uL (0.0-0.2) 07/30/23 16:48 Monocyte Dist Width 18.25 % (0.00-20.00) 07/30/23 16:48 PT 11.8 Seconds (9.0-12.9) 07/30/23 16:48 INR 1.0 07/30/23 16:48 APTT 26.3 Seconds (25.1-36.5) 07/30/23 16:48 D-Dimer Quant (PE/DVT) 338 ng/mL (0-243) H 07/30/23 16:48 PHA Creatinine Clear 67.24 07/30/23 16:48 Sodium 135 mmol/L (136-145) L 07/30/23 16:48 Potassium 4.4 mmol/L (3.5-5.1) 07/30/23 16:48 Chloride 103 mmol/L (98-107) 07/30/23 16:48 Carbon Dioxide 27.1 mmol/L (21.0-31.0) 07/30/23 16:48 Anion Gap 9.3 mEq/L (6.0-15.0) 07/30/23 16:48 BUN 17 mg/dL (7-25) 07/30/23 16:48 Creatinine 1.49 mg/dL (0.70-1.30) H 07/30/23 16:48 Est GFR (CKD-EPI) 48.638 mL/Min 07/30/23 16:48 Glucose 224 mg/dL (70-100) H 07/30/23 16:48 Calcium 9.2 mg/dL (8.6-10.3) 07/30/23 16:48 Total Bilirubin 0.4 mg/dl (0.3-1.0) 07/30/23 16:48 Direct Bilirubin 0.00 mg/dL (0.03-0.18) L 07/30/23 16:48 Indirect Bilirubin 0.4 mg/dL 07/30/23 16:48 AST 25 U/L (13-39) 07/30/23 16:48 ALT 28 U/L (7-52) 07/30/23 16:48 Alkaline Phosphatase 103 U/L (34-104) 07/30/23 16:48 Total Creatine Kinase 215 U/L (30-223) 07/30/23 16:48 Troponin I High Sens 8.5 pg/mL (0.0-20.0) 07/30/23 16:48 B-Natriuretic Peptide 39.0 pg/mL (5-100) 07/30/23 16:48 Total Protein 6.9 gm/dL (6.4-8.9) 07/30/23 16:48 Albumin 3.7 gm/dL (3.5-5.7) 07/30/23 16:48 Globulin 3.2 gm/dL 07/30/23 16:48 Albumin/Globulin Ratio 1.2 07/30/23 16:48 Lipase 21.0 U/L (11.0-82.0) 07/30/23 16:48 ECG Data ECG Narrative: NSR with first degree AV block 71 bpm, no acute ST/t wave changes suggestive of ischemia Assessment & Plan Assessment/Plan (1) Chest pain: Plan: admit to monitor on telemetry serial cardiac enzymes/ECGs sublingual NTG, morphine PRN continue ASA, home beta moises, statin pt to report recurrence of chest pain to staff immedately consult cardiology in am for further eval/risk stratification (2) Chronic kidney disease, stage III (moderate): Plan: serum creatinine mildly elevated compared to baseline (1.27->1.49) hold ACEI ARB and HCTZ and recheck in am, restart if not worsening Plan continue home medications as indicated on med rec form DM2- continue home insulin regimen, accucheck ac/hs, SSI, hypoglycemia protocol, check hgb a1c level VTE prophylaxis- IP vs OBS Justification Based on differential dx, clinical care plan, and risk of adverse events, if untreated, in my clinical judgement this patient requires an acute care setting as: OBSERVATION because of an expectation of an under 2 midnight stay. Estimated length of stay (# of days): 1 Documented By: Georgi Vargas MD 07/30/232119 Signed By: <Electronically signed by Georgi Vargas MD> 07/30/232147 [facility] Work Phone: Hospital Discharge instructions No data available for this section [facility] Work Phone: Hospital Discharge instructions Additional Instructions If needed for severe pain Follow-up with neurosurgeon tomorrow call as you planned to see about a earlier appointment. Let them know that you had your MRI completed When you see the neurosurgeon please take imaging with you and read Return here if any problems persist or worsen as instructed[facility] Work Phone: Hospital Discharge instructions Additional Instructions Please call your [facility] doctor today for a follow-up appointment regarding your MRI Return if you develop inability to walk, worsening pain or symptomsCommunity Memorial Hospital Work Phone: Hospital Discharge instructions Additional Instructions Take your tramadol at home for pain Follow with your doctor call tomorrow for appointment Return here if any problems persist or worsen as instructedCommunity Memorial Hospital Work Phone: Progress note No data available for this section [facility] note Author Braulio Hauser [facility] October 31, 2022 9:48am Note Date/Time October 31, 2022 9 :48am [facility] [address] [place] [address] Wound Center Provider Note Signed Patient: Trey Figueroa Sr MR#: [id number] : 1950 Acct:[id number] Age/Sex: 72 / M Copies to: [facility] Braulio Hauser DPM~ HPI Date of Visit Date of Visit: Date of Service: 10/31/2022 Time of Service: 09:45 Narrative HPI: This is a 72-year-old male who presents today with a area of concern on his second right toe. Patient states that a few days ago he noticed some drainage coming from the toe and which prompted him to call and make an appointment at the wound care clinic. Patient is a diabetic with a history of ulcerations on the right second toe. Patient has been wearing a digital crest pad which broke and would like to know how he can get some new digital crest pads. Subjective Pain Right Toe: Pain Intensity: 0 Wound/Ulcer History When did wound start?: Friday10/25/22 Mode of Arrival/ Electronic Security Specialist: W/C van Assistive Device Used Today: Wheelchair Lives with:: Alone Appetite Description: Within Normal Limits Who helps w/ dressing change?: Home Health Why Do You Need Help?: Can't Reach Ulcer, Limited mobility and Taxing effort to leave home Smoking Status: Former smoker [facility] Medical History Acid reflux Arrhythmia Asthma Blood clot of artery under arm Colon polyp Crush injury to thumb bone grafting done Diabetes High blood cholesterol Hypertension Neuropathy Pain in right foot Paralysis [id number] Shingles Surgical History H/O elbow surgery lt H/O eye surgery rt H/O hand surgery lt Previous back surgery x 2 Family History Mother Diabetes father had DM mother did not Social History Smoking Status: Former smoker Tobacco Type: cigarettes Substance Use Type: None Substance Abuse Comment: Quit alcohol and tobacco 37 years ago Social History Comments: nephew Grafts History of Graft History of Graft?: No Exam Physical Exam Vital Signs: Temp Pulse Resp BP O2 Del Method 97.7 F 64 18 124/76 Room Air 10/31/22 09:27 10/31/22 09:27 10/31/22 09:27 10/31/22 09:27 10/31/22 09:27 Lower/Upper Extremity Exam Vascular Exam-Pulses Right Radial: Pulse Assessment Method: Palpation Objective Meds/Allergies Home Medications amlodipine 10 mg tablet (Norvasc) 10 mg PO DAILY 11/15/19 [History Confirmed 10/31/22] hydroxyzine pamoate 50 mg capsule (Vistaril) 50 mg PO TID PRN HIVES 11/15/19 [History Confirmed 10/31/22] aspirin 81 mg chewable tablet 81 mg PO DAILY 12/22/19 [History Confirmed 10/31/22] dicyclomine 20 mg tablet 20 mg PO TID 12/22/19 [History Confirmed 10/31/22] hydrochlorothiazide 25 mg tablet 25 mg PO DAILY 12/22/19 [History Confirmed 10/31/22] losartan 25 mg tablet 25 mg PO DAILY 12/22/19 [History Confirmed 10/31/22] terazosin 5 mg capsule 20 mg PO QHS 12/22/19 [History Confirmed 10/31/22] albuterol sulfate 90 mcg/actuation aerosol inhaler 1 puff inhalation Q4H PRN Wheezing 02/19/21 [History Confirmed 10/31/22] amitriptyline 150 mg tablet 150 mg PO DAILY 02/19/21 [History Confirmed 10/31/22] ammonium lactate 12 % lotion 1 applic topical BID 02/19/21 [History Confirmed 10/31/22] docusate sodium 100 mg capsule (Colace) 100 mg PO DAILY 02/19/21 [History Confirmed 10/31/22] dutasteride 0.5 mg capsule 0.5 mg PO DAILY 02/19/21 [History Confirmed 10/31/22] fluticasone propionate 110 mcg/actuation HFA aerosol inhaler 1 puff inhalation Q12H 02/19/21 [History Confirmed 10/31/22] insulin glargine 100 unit/mL subcutaneous solution (Lantus U-100 Insulin) 45 unit subcut QHS 02/19/21 [History Confirmed 10/31/22] insulin lispro 100 unit/mL subcutaneous solution (Humalog U-100 Insulin) 11 unitsubcut ACHS 02/19/21 [History Confirmed 10/31/22] metoprolol tartrate 100 mg tablet 100 mg PO DAILY 02/19/21 [History Confirmed 10/31/22] nitroglycerin 0.4 mg sublingual tablet 0.4 mg sublingual Q5-15MIN PRN Chest Pain02/19/21 [History Confirmed 10/31/22] atorvastatin 40 mg tablet 40 mg PO DAILY #30 tabs 11/11/21 [Rx Confirmed 10/31/22] pantoprazole 20 mg tablet,delayed release 20 mg PO DAILY 05/19/22 [History Confirmed 10/31/22] miconazole nitrate 2 % topical cream 1 applic topical BID 5 days #30 grams 06/09/22 [Rx Confirmed 10/31/22] donepezil 10 mg tablet 10 mg PO DAILY 08/11/22 [History Confirmed 10/31/22] meloxicam 15 mg tablet 15 mg PO DAILY 08/11/22 [History Confirmed 10/31/22] hydrocodone 5 mg-acetaminophen 325 mg tablet 1 tab PO Q6H PRN pain 3 days #12 tabs 08/15/22 [Rx Confirmed 10/31/22] tramadol 50 mg tablet 50 mg PO Q8H PRN pain 3 days #9 tabs 09/05/22 [Rx Confirmed 10/31/22] Allergies No Known Allergies Allergy (Verified 09/24/22 23:31) Results Height: 6 ft 5 in Assessment/Plan Assessment/Plan (1) Controlled type 2 diabetes mellitus with diabetic polyneuropathy, with long- term current use of insulin: Code(s): E11.42 - Type 2 diabetes mellitus with diabetic polyneuropathy; 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 It does appear that there may have been a dried blood blister which the skin is in the process of setting. There is no evidence of erythema redness, edema, drainage or any evidence of infection at this time. I explained to the patient that we will gethim a new extra-large surgical shoe today to be dispensed since his old one has broken down with significant wear. Also advised the patient that he can actually purchase these digital crest pads for the right toes on [employer]. Patient is to reappoint as needed. Time spent with patient Time Spent With Patient (min): 15 Dictated By: Braulio Hauser DPM DD/ Signed By: <Electronically signed by SANJU Hauser> 10/31/2248 [facility] Work Phone: Progress note Author Eryn Sands [facility] July 31, 2023 3:32pm Note Date/Time July 31, 2023 12 :01pm [facility] [address] [place] [address] Hospitalist Progress Note Signed with Addenda Patient: Trey Figueroa Sr MR#: [id number] : 1950 Acct:[id number] Age/Sex: 73 / M Adm Date: 3 Loc: 3T Room: [address] [place] [address] Type: ADM INOo Attending Dr: Eryn Sands MD Copies to: ~ ADDENDUM1 Patient was personally seen by me on the day of encounter, reviewed his history and performed liang elements of exam and formulated the plan of care and confirmedthe resident/interns note below. Addendum Documented By: Eryn Sands MD 07/31/231531 Addendum Signed By: <Electronically signed by Eryn Sands MD> 07/31/231531 Date of Service: 07/31/2023 Subjective Subjective Narrative: I personally saw and spoke with Mr. Trey Figueroa bedside this morning who is alert orientedx3, finishing up breakfast and in no acute distress; comfortable/pleasant. At the time of our encounter Mr. Figueroa stated his chestpain was controlled however expressed concern regarding multiple doses of NTG for symptom relief. He has had complained of chest pain over the last month however was recently exacerbated by lifting a heavy chair resulting in sharp shooting pain down his left arm unlike ever before and subsequently his ED visit. He has a history of GERD, hypertension, dyslipidemia and insulin-dependent type 2 diabetes mellitus. Mr. Figueroa was previously seen by ED in December 2021 for hypoglycemia; January 2022 for slip and fall on icy pavement; May 2022 pedal OM; May 2022 for laceration repair No history of prior visits for chest pain or cardiac work-up. 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, following simple 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 Musculoskeletal: No joint swelling or limitation of movement Psychiatric: Cooperative, normal mood and affect Objective Lab Results 07/30/23 16:48 07/30/23 16:48 Meds Allergies and Active Meds Allergies No Known Allergies Allergy (Verified 07/30/23 23:13) Active Meds: Active Medications Generic Name Dose Route Start Last Admin Trade Name Freq PRN Reason Stop Dose Admin Acetaminophen 1,000 mg 07/30/23 21:01 Acetaminophen 500 Mg Tablet PO 07/29/24 21:00 Q6H PRN Mild Pain Al Hydrox/Mg Hydrox/Simethicone 30 ml 07/30/23 21:01 Mag Hydrox/Al Hydrox/Simeth 30 Ml Udc PO 07/29/24 21:00 Q4H PRN Epigastric distress (Non-Card) Albuterol 1 puff 07/30/23 21:06 Albuterol Hfa 60 Puff/8 Gram Inhaler INHALATION 07/29/24 21:05 Q4H PRN Wheezing Amitriptyline HCl 150 mg 07/31/23 02:15 07/31/23 02:22 Amitriptyline 50 Mg Tablet PO 07/30/24 02:14 150 mg QHS GUADALUPE Administration Amlodipine Besylate 10 mg 07/31/23 09:00 07/31/23 09:04 Amlodipine 10 Mg Tablet PO 07/30/24 08:59 10 mg DAILY GUADALUPE Administration Dicyclomine HCl 20 mg 07/31/23 02:15 07/31/23 09:04 Dicyclomine 20 Mg Tablet PO 07/30/24 02:14 20 mg TID GUADALUPE Administration Docusate Sodium 100 mg 07/30/23 21:01 Docusate 100 Mg Capsule PO 07/29/24 21:00 QHS PRN Constipation Docusate Sodium 100 mg 07/31/23 09:00 07/31/23 09:06 Docusate 100 Mg Capsule PO 07/30/24 08:59 100 mg DAILY GUADALUPE Administration Donepezil HCl 10 mg 07/31/23 09:00 07/31/23 09:04 Donepezil 10 Mg Tablet PO 07/30/24 08:59 10 mg DAILY GUADALUPE Administration Enoxaparin Sodium 40 mg 07/31/23 10:00 Enoxaparin 40 Mg/0.4 Ml Syringe SUBCUT 07/30/24 09:59 DAILY@10 GUADALUPE Finasteride 5 mg 07/31/23 11:00 Finasteride 5 Mg Tablet PO 07/30/24 10:59 DAILY GUADALUPE Fluticasone Propionate 1 puff 07/31/23 09:00 07/31/23 09:27 Fluticasone Propionate 110 120 Puff/12 Gm Inhaler INHALATION 07/30/24 08:59 1 puff BID GUADALUPE Administration Insulin Aspart 11 units 07/31/23 07:30 07/31/23 09:05 Insulin Aspart 300 Units/3 Ml Insuln.Pen SUBCUT 07/30/24 07:29 11 units ACHS GUADALUPE Administration Insulin Glargine 45 units 07/31/23 22:00 Insulin Glargine 300 Units/3 Ml Insuln.Pen SUBCUT 07/30/24 21:59 QHS GUADALUPE Metoprolol Tartrate 125 mg 07/31/23 09:00 Metoprolol Tartrate 50 Mg Tablet PO 07/30/24 08:59 DAILY GUADALUPE Morphine Sulfate 4 mg 07/30/23 21:01 Morphine Sulfate 4 Mg/Ml Cartridge IV-PUSH Q20M PRN Chest Pain Nitroglycerin 0.4 mg 07/30/23 16:23 07/31/23 02:22 Nitroglycerin 0.4 Mg Tab.Subl SUBLINGUAL 07/29/24 16:22 0.4 mg Q5M PRN Administration Chest Pain Ondansetron HCl 4 mg 07/30/23 21:01 Ondansetron 4 Mg/2 Ml Vial IV-PUSH 07/29/24 21:00 Q6H PRN Nausea And Vomiting Pantoprazole Sodium 40 mg 07/31/23 09:00 07/31/23 09:04 Pantoprazole 40 Mg Tablet.Dr PO 07/30/24 08:59 40 mg BID GUADALUPE Administration Pravastatin Sodium 40 mg 07/31/23 09:00 07/31/23 09:04 Pravastatin 40 Mg Tablet PO 07/30/24 08:59 40 mg DAILY GUADALUPE Administration Sodium Chloride 0 ml 07/30/23 18:08 07/30/23 18:08 Sodium Chloride 0.9 % 10 Ml Syringe IV-PUSH 07/29/24 18:07 10 ml PRN PRN Administration Flush Sodium Chloride 0 ml 07/30/23 21:01 Sodium Chloride 0.9 % 10 Ml Syringe IV-PUSH 07/29/24 21:00 PRN PRN Flush Tramadol HCl 50 mg 07/30/23 21:01 Tramadol 50 Mg Tablet PO 01/26/24 21:00 Q6H PRN Moderate Pain Triamcinolone Acetonide 1 applic 07/30/23 21:01 Triamcinolone 0.1% Cream 15 Gm Tube TOPICAL 07/29/24 21:00 QID PRN Irritation A&P - Hospitalist Assessment/Plan (1) Chest pain: (2) Chronic kidney disease, stage III (moderate): Plan: serum creatinine mildly elevated compared to baseline (1.27->1.49) Plan Per HPI this is first visit for chest pain. Heart score is 5 indicative of a 12to 16% risk of major adverse cardiac event. Continue to monitor on telemetry; pending cardio consult Amlodipine 10 mg p.o. daily for hypertension serial cardiac enzymes/ECGs sublingual NTG, morphine PRN continue ASA, home beta moises, statin Patient is advised to report recurrence of chest pain to staff immediately Continue to hold ACEI, ARB and HCTZ We will continue home medications DM2 home insulin regimen, accucheck ac/hs, SSI, hypoglycemia protocol, check hgb a1c level VTE prophylaxis- Documented By: Darci Fajardo MD, RES 07/31/23 112 7 Signed By: <Electronically signed by RES Darci Fajardo> 07/31/23 1201 <Electronically signed by Eryn Sands MD> 07/31/23 1531 [facility] Work Phone: Reason for referral (narrative)* Outpatient Procedure (Routine) - Pending Review Specialty Diagnoses / Procedures Referred By Dante ann [facility] Diagnoses Pre-op exam Gastroesophageal reflux disease without esophagitis Type 2 diabetes mellitus without complication, without long-term current use of insulin (HCC) Other hyperlipidemia Essential hypertension Mild intermittent asthma without complication Benign prostatic hyperplasia with urinary retention BMI 37.0-37.9, adult Headaches Personal history of DVT (deep vein thrombosis) Procedures ECG COMPLETE ECG ROUTINE ECG W/LEAST 12 LDS W/I&R Nena Diaz APRN.OCEANOGRAPHIC METEOROLOGIST [address] [place] [address] [facility] [address] [place] [address] Referral ID Status Reason Start Date Expiration Date Visits Requested Visits Authorized [id number] Pending Review Auto-Generat ed Referral 03/21/2023 03/20/2024 1 1 [facility] Family History Unknown Family Member Name Dates Details No pertinent family history: Mother, Father, Sister, Brother(V49.89, Z78.9) Status:Active Unknown Family Member Name Dates Details No pertinent family history: Mother, Father, Sister, Brother(V49.89, Z78.9) Status:Active Relationship Condition Age at Onset Recorded Date/T gilberto Not Specified Diabetes mellitus Unknown Relationship Condition Age at Onset Recorded Date/T gilberto father Diabetes mellitus Unknown Summary Purpose Advance Directives Documents on File Type Date Recorded Patient Gaggerman Expl anation Advance Directive(s) 02/04/2022 7:53 AM Advance Directive(s) 01/25/2022 3:50 PM Advance Directive(s) 01/03/2022 12:20 PM Advance Directive(s) 12/25/2021 9:10 AM Advance Directive(s) 12/20/2021 5:17 PM Advance Directive(s) 12/20/2021 5:29 PM Advance Directive(s) 12/19/2021 6:22 PM Advance Directive(s) 05/10/2021 8:29 AM Advance Directive(s) 11/03/2020 11:53 AM Advance Directive Response Recorded Date/ Time Advance Directives No October 10:54pm Advance Directive Response Recorded Date/ Time Advance Directives No October 9:54pm Chief Complaint and Reason for Visit Chief Complaint r foot swelling lac wound R20.2 R41.3 left thigh R20.2 L thigh open area,sutures came out memory loss left sided body pain New wound / buttock-thigh area thigh wound Reason for Visit Abdominal pain Diabetes mellitus with foot ulcer Osteomyelitis Ulcer of second toe of right foot Chronic diabetic ulcer of foot determined by examination Chronic ulcer of right foot with fat layer exposed [id number] Ulcer of second toe of right foot Chief Complaint r foot swelling lac wound R20.2 R41.3 left thigh R20.2 L thigh open area,sutures came out memory loss left sided body pain thigh wound Open Wound rt middle toe swelling, rt leg pain Reason for Visit Abdominal pain Diabetes mellitus with foot ulcer Osteomyelitis Ulcer of second toe of right foot Chronic diabetic ulcer of foot determined by examination Chronic kidney disease, stage III (moderate) Diabetes [id number] Puncture wound Wound pain Chronic ulcer of right foot with fat layer exposed Ulcer of second toe of right foot Chief Complaint left thigh R20.2 L thigh open area,sutures came out memory loss left sided body pain thigh wound rt middle toe swelling, rt leg pain Open Wound groin pain Reason for Visit Abscess of right [facility] [id number] Chronic diabetic ulcer of foot determined by examination Chronic kidney disease, stage III (moderate) Diabetes [id number] Puncture wound Wound pain Chronic ulcer of right foot with fat layer exposed Ulcer of second toe of right foot Chief Complaint rt middle toe swelli ng, rt leg pain Open Wound groin pain sent by dr due to MRI Reason for Visit Abscess of right [facility] [id number] Chronic diabetic ulcer of foot determined by examination Chronic kidney disease, stage III (moderate) Diabetes [id number] Puncture wound Wound pain Chronic ulcer of right foot with fat layer exposed Ulcer of second toe of right foot Chief Complaint rt middle toe swelli ng, rt leg pain groin pain sent by dr due to MRI Open Wound J45.40 R93.89 Reason for Visit Abscess of right [facility] [id number] Chronic diabetic ulcer of foot determined by examination Chronic kidney disease, stage III (moderate) Diabetes [id number] Puncture wound Wound pain Chronic ulcer of right foot with fat layer exposed Ulcer of second toe of right foot Chief Complaint rt middle toe swelli ng, rt leg pain groin pain sent by dr due to MRI J45.40 R93.89 Open Wound Reason for Visit Chronic diabetic ulc er of foot determined by examination Chronic kidney disease, stage III (moderate) Diabetes [id number] Wound pain Abscess of right thigh Chronic ulcer of right foot with fat layer exposed Puncture wound Ulcer of second toe of right foot Chief Complaint rt middle toe swelli ng, rt leg pain groin pain sent by due to MRI J45.40 R93.89 Open Wound toe ulcer reopened Reason for Visit Chronic diabetic ulc er of foot determined by examination Chronic kidney disease, stage III (moderate) Diabetes [id number] Wound pain Abscess of right thigh Chronic ulcer of right foot with fat layer exposed Puncture wound Ulcer of second toe of right foot [id number] Chief Complaint groin pain sent by due to MRI J45.40 R93.89 Open Wound toe ulcer reopened GERD Reason for Visit Chronic diabetic ulc er of foot determined by examination Chronic kidney disease, stage III (moderate) Diabetes [id number] Wound pain Abscess of right thigh Chronic ulcer of right foot with fat layer exposed Puncture wound Ulcer of second toe of right foot [id number] Chief Complaint sent by dr pink to MR Elizabeth J45.40 R93.89 Open Wound toe ulcer reopened GERD GERD Reason for Visit Chronic diabetic ulc er of foot determined by examination Chronic kidney disease, stage III (moderate) Diabetes [id number] Wound pain Abscess of right thigh Chronic ulcer of right foot with fat layer exposed Puncture wound Ulcer of second toe of right foot [id number] Chief Complaint GERD Gerd self/ right toes S39.93XA M24.9 Reason for Visit Dysphagia ISTAP type 1 skin tear of right lower extremity [id number] Chief Complaint GERD Gerd self/ right toes S39.93XA M24.9 back pain Reason for Visit Dysphagia ISTAP type 1 skin tear of right lower extremity [id number] Chief Complaint self/ right toes S39.93XA M24.9 back pain Reason for Visit ISTAP type 1 skin te ar of right lower extremity [id number] Chief Complaint r13.11 Chief Complaint r13.11 chest pain Chief Complaint r13.11 chest pain Reason for Visit Chest pain Hypertension Chronic kidney disease, stage III (moderate) [id number] Chief Complaint chest pain I51.89 Reason for Visit Chest pain Hypertension Chronic kidney disease, stage III (moderate) [id number] Chief Complaint I51.89 rt elbow pain Chief Complaint I51.89 rt elbow pain M70.21 Diff breathing Reason for Referral Specialty Diagnoses / Procedures Referred By Contac t Referred To Contact CT IMAGING Diagnoses Other anophthalmos Procedures CT ORBITS W IVCON CT SCAN SKULL CONTRAST Tiffany Marshall MD [address] [place] [address] Ct Imaging Referral ID Status Reason Start Date Expiration Date V isits Requested Visits Authorized [id number] Closed Auto-Generate d Referral 12/11/2021 01/10/2023 1 1 Additional Source Comments (unrecognized sect ion and content) No Status Records FoundNo Status Records FoundNo Status Records FoundNo Status Records FoundNo Status Records FoundNo Status Records FoundNo Status Records FoundNo Status Records Found INFORMATION SOURCE (unrecogn ized section and content) DATE CREATED AUTHOR 10/26/2021 [employer] DATE CREATED AUTHOR AUTHOR'S ORGANIZ ATION 09/02/2022 [facility] DATE CREATED AUTHOR AUTHOR'S ORGANIZ ATION 05/20/2023 [facility] DATE CREATED AUTHOR AUTHOR'S ORGANIZ ATION 07/12/2023 [facility] DATE CREATED AUTHOR AUTHOR'S ORGANIZ ATION 08/05/2023 [facility] DATE CREATED AUTHOR AUTHOR'S ORGANIZ ATION 10/19/2023 [facility] DATE CREATED AUTHOR AUTHOR'S ORGANIZ ATION 12/06/2023 [facility] DATE CREATED AUTHOR AUTHOR'S ORGANIZ ATION 12/10/2023 [facility] Source Comments (unrecognize d section and content) In the event this informatio n is protected by the Federal Confidentiality of Alcohol and Drug Abuse Patient Records regulations: The Federal rules restrict any use of the information to criminally investigate or prosecute any alcohol or drug abuse patient.[facility] the event this information is protected by the Federal Confidentiality of Alcohol and Drug Abuse Patient Records regulations: The Federal rules restrict any use of the information to criminally investigate or prosecute any alcohol or drug abuse patient.[facility] the event this information is protected by the Federal Confidentiality of Alcohol and Drug Abuse Patient Records regulations: The Federal rules restrict any use of the information to criminally investigate or prosecute any alcohol or drug abuse patient.[facility] the event this information is protected by the Federal Confidentiality of Alcohol and Drug Abuse Patient Records regulations: The Federal rules restrict any use of the information to criminally investigate or prosecute any alcohol or drug abuse patient.[facility] the event this information is protected by the Federal Confidentiality of Alcohol and Drug Abuse Patient Records regulations: The Federal rules restrict any use of the information to criminally investigate or prosecute any alcohol or drug abuse patient.[facility] the event this information is protected by the Federal Confidentiality of Alcohol and Drug Abuse Patient Records regulations: The Federal rules restrict any use of the information to criminally investigate or prosecute any alcohol or drug abuse patient.[facility] the event this information is protected by the Federal Confidentiality of Alcohol and Drug Abuse Patient Records regulations: The Federal rules restrict any use of the information to criminally investigate or prosecute any alcohol or drug abuse patient.[facility] the event this information is protected by the Federal Confidentiality of Alcohol and Drug Abuse Patient Records regulations: The Federal rules restrict any use of the information to criminally investigate or prosecute any alcohol or drug abuse patient.[facility] the event this information is protected by the Federal Confidentiality of Alcohol and Drug Abuse Patient Records regulations: The Federal rules restrict any use of the information to criminally investigate or prosecute any alcohol or drug abuse patient.[facility] the event this information is protected by the Federal Confidentiality of Alcohol and Drug Abuse Patient Records regulations: The Federal rules restrict any use of the information to criminally investigate or prosecute any alcohol or drug abuse patient.[facility] the event this information is protected by the Federal Confidentiality of Alcohol and Drug Abuse Patient Records regulations: The Federal rules restrict any use of the information to criminally investigate or prosecute any alcohol or drug abuse patient.[facility] the event this information is protected by the Federal Confidentiality of Alcohol and Drug Abuse Patient Records regulations: The Federal rules restrict any use of the information to criminally investigate or prosecute any alcohol or drug abuse patient.[facility] the event this information is protected by the Federal Confidentiality of Alcohol and Drug Abuse Patient Records regulations: The Federal rules restrict any use of the information to criminally investigate or prosecute any alcohol or drug abuse patient.[facility] the event this information is protected by the Federal Confidentiality of Alcohol and Drug Abuse Patient Records regulations: The Federal rules restrict any use of the information to criminally investigate or prosecute any alcohol or drug abuse patient.[facility] the event this information is protected by the Federal Confidentiality of Alcohol and Drug Abuse Patient Records regulations: The Federal rules restrict any use of the information to criminally investigate or prosecute any alcohol or drug abuse patient.[facility] the event this information is protected by the Federal Confidentiality of Alcohol and Drug Abuse Patient Records regulations: The Federal rules restrict any use of the information to criminally investigate or prosecute any alcohol or drug abuse patient.[facility] the event this information is protected by the Federal Confidentiality of Alcohol and Drug Abuse Patient Records regulations: The Federal rules restrict any use of the information to criminally investigate or prosecute any alcohol or drug abuse patient.[facility] the event this information is protected by the Federal Confidentiality of Alcohol and Drug Abuse Patient Records regulations: The Federal rules restrict any use of the information to criminally investigate or prosecute any alcohol or drug abuse patient.[facility] the event this information is protected by the Federal Confidentiality of Alcohol and Drug Abuse Patient Records regulations: The Federal rules restrict any use of the information to criminally investigate or prosecute any alcohol or drug abuse patient.[facility] the event this information is protected by the Federal Confidentiality of Alcohol and Drug Abuse Patient Records regulations: The Federal rules restrict any use of the information to criminally investigate or prosecute any alcohol or drug abuse patient.[facility] the event this information is protected by the Federal Confidentiality of Alcohol and Drug Abuse Patient Records regulations: The Federal rules restrict any use of the information to criminally investigate or prosecute any alcohol or drug abuse patient.[facility] the event this information is protected by the Federal Confidentiality of Alcohol and Drug Abuse Patient Records regulations: The Federal rules restrict any use of the information to criminally investigate or prosecute any alcohol or drug abuse patient.[facility] Reason for Visit (unrecogniz ed section and content) Reason Comments Returning Patient's Call Reason Comments Post-op (Ophthalmology) Left Eye PCIOL 0 02/04/22 Aim -1.00 Reason Comments Floaters Left Eye Reason Comments Follow Up Reason Comments Patient Update Reason Comments Medication Problem Reason Comments Results Reason Comments New Patient Specialty Diagnoses / Procedures Referred By Dante t Referred To Contact Diagnoses Radiculopathy, lumbar region Procedures CONSULT TO SPINE SURGERY NEW PATIENT VISIT LEVEL 5 Savana Barajas, [employer].OCEANOGRAPHIC METEOROLOGIST [address] [place] [address] Referral ID Status Reason Start Date Expiration Date V isits Requested Visits Authorized [id number] Closed PCP Requested Referral 12/13/2021 12/13/2022 1 1 Reason Comments Information Reason Comments Dedicated [employer] - Other Patient Question Reason Comments Patient Update Patient Question Reason Comments Called Back Reason Comments Posterior Capsule Opacification Follow U p Specialty Diagnoses / Procedures Referred By Elizabethac t Referred To Contact CT IMAGING Diagnoses Other anophthalmos Procedures CT ORBITS W IVCON CT SCAN SKULL CONTRAST Tiffany Marshall MD [address] [place] [address] Ct Imaging Referral ID Status Reason Start Date Expiration Date V isits Requested Visits Authorized [id number] Closed Auto-Generate d Referral 12/11/2021 01/10/2023 1 1 Specialty Diagnoses / Procedures Referred By Contac t Referred To Contact MR IMAGING Diagnoses Spinal stenosis of lumbar region with neurogenic claudication Procedures MRI LUMBAR SPINE WO IVCON MRI, LUMBAR SPINE Savnaa Barajas, [employer].OCEANOGRAPHIC METEOROLOGIST [address] [place] [address] [place] [address] Referral ID Status Reason Start Date Expiration Date V isits Requested Visits Authorized [id number] Closed Auto-Generate d Referral 12/13/2021 01/12/2023 1 1 Reason Comments Flashes Left Eye Floaters Left Eye Care Teams (unrecognized sec tion and content) Team Status: Active Member Role Status Dates Services Family [facility] Primary Care Provider Active Team Status: Inactive Member Role Status Dates Services Family [facility] Primary Care Provider Active Joselito Webb MD Attending Provider Active Team Status: Active Member Role Status Dates Braulio (WND) SANJU Hauser Attending Provider Active Services [facility] Primary Care Provider Active Team Status: Inactive Member Role Status Dates Gold Miller DO Attending Provider Active Services [facility] Primary Care Provider Active Bull Driver Relationship Specialty Start Date End Date Conchis Beckwith DO [address] [place] [address] PCP - General Family Practice 11/03/20 Isidro Greenfield(Historical) [address] [address] Referring 01/31/20 Conchis Beckwith DO [address] [place] [address] Referring Family Practice 08/11/20 Bull Driver Relationship Specialty Start Date End Date Conchis Beckwith DO [address] [place] [address] PCP - General Family Practice 11/03/20 Isidro Greenfield(Historical) [address] [place] [address] Referring 01/31/20 Conchis Beckwith DO [address] [place] [address] Referring Family Practice 08/11/20 Team Status: Inactive Member Role Status Dates Services [facility] Primary Care Provider Active Ravin Matute PA-C Emergency Provider Active Team Status: Inactive Member Role Status Dates Services [facility] Primary Care Provider Active Low Castellano , DO Emergency Provider Active Team Status: Inactive Member Role Status Dates Services [facility] Primary Care Provider Active Luiz Pandya , DO Emergency Provider Active Team Status: Inactive Member Role Status Dates Services [facility] Primary Care Provider Active Tae Marc MD Emergency Provider Active Team Status: Inactive Member Role Status Dates Services [facility] Primary Care Provider Active Wood Moeller DO Attending Provider Active Ken Brush DO RES Referring Provider Active Team Status: Inactive Member Role Status Dates Services [facility] Primary Care Provider Active Conchis Beckwith , DO RES Other Provider Active Solomon Pedersen DO Attending Provider Active Team Status: Inactive Member Role Status Dates Services Family [facility] Primary Care Provider Active Ken Brush , DO RES Attending Provider Active Team Status: Inactive Member Role Status Dates Services Family [facility] Primary Care Provider Active Vanita Harding , AIRLINE HOSTESS- Emergency Provider Active Team Status: Active Member Role Status Dates Services Family [facility] Primary Care Provider Active Braulio Hauser DPM (WND) Attending Provider Active Team Status: Inactive Member Role Status [facility] Services Family [facility] Primary Care Provider Active Rommel Mcgowan DO Emergency Provider Active Milady Avila MD Admit Provider Active Cristiano Fagan MD Other Provider Active Jarret Duran DPM Other Provider Active Dimitry Tyler MD Attending Provider Active Bull Driver Relationship Specialty Start Date End Date Conchis Beckwith DO [address] [place] [address] PCP - General Family Practice 11/03/20 Isidro Greenfield(Historical) [address] [place] [address] Referring 01/31/20 Conchis Beckwith DO [address] [place] [address] Referring Family Practice 08/11/20 Bull Driver Relationship Specialty Start Date End Date Conchis Beckwith DO [address] [place] [address] PCP - General Family Practice 11/03/20 Isidro Greenfield(Historical) [address] [place] [address] Referring 01/31/20 Conchis Beckwith DO [address] [place] [address] Referring Family Practice 08/11/20 Team Status: Active Member Role Status [facility] Primary Care Provider Active Braulio Hauser DPM (WND) Active Amy Alvarado APRN Attending Provider Active Braulio Hauser DPM Active Bull Driver Relationship Specialty Start Date End Date Tang ConchisDO [address] [place] [address] PCP - General Family Medicine 11/03/20 Isidro Greenfield(Historical) [address] [place] [address] Referring 01/31/20 Conchis Beckwith DO [address] [place] [address] Referring Family Medicine 08/11/20 Team Status: Inactive Member Role Status [facility] Primary Care Provider Active Rommel Mcgowan DO Emergency Provider Active Team Status: Active Member Role Status [facility] Primary Care Provider Active Braulio (WNTez) SANJU Hauser Active Amy Alvarado APRN Active Braulio Hauser DPM Attending Provider Active Bull Driver Relationship Specialty Start Date End Date Tang ConchisDO pasquale [address] [place] [address] PCP - General Family Medicine 11/03/20 Isidro Greenfield(Historical) [address] [address] Referring 01/31/20 Conchis Beckwith DO [address] [place] [address] Referring Family Medicine 08/11/20 Team Status: Inactive Member Role Status [facility] Primary Care Provider Active Solomon Pedersen DO Attending Provider Active Ken Brush DO RES Referring Provider Active Bull Driver Relationship Specialty Start Date End Date Conchis Beckwith DO PCP - General Family Medicine 11/03/20 Isidro Greenfield(Historical) [address] [place] [place] [address] Referring 01/31/20 Conchis Beckwith DO Referring Family Medicine 08/11/20 Team Status: Inactive Member Role Status [facility] Primary Care Provider Active Braulio (JAMAL) SANJU Hauser Active Amy Alvarado APRN Attending Provider Active Braulio Hauser DPM Active Team Status: Inactive Member Role Status [facility] Primary Care Provider Active Braulio (JAMAL) SANJU Hauser Attending Provider Active Bull Driver Relationship Specialty Start Date End Date Conchis Beckwith DO [address] [place] [address] PCP - General Family Medicine 11/03/20 Isidro Greenfield(Historical) [address] [place] [address] Referring 01/31/20 Conchis Beckwith DO [address] [place] [address] Referring Family Medicine 08/11/20 Team Status: Inactive Member Role Status [facility] Primary Care Provider Active Bailee Feliciano APRN Emergency Provider Active Bull Driver Relationship Specialty Start Date End Date Conchis Beckwith DO [address] [place] [address] PCP - General Family Medicine 11/03/20 Isidro Greenfield(Historical) [address] [place] [address] Referring 01/31/20 Tang ConchisDO pasquale [address] [place] [address] Referring Family Medicine 08/11/20 Bull Driver Relationship Specialty Start Date End Date Tang ConchisDO pasquale [address] [place] [address] PCP - General Family Medicine 11/03/20 Isidro Greenfield(Historical) [address] [place] [address] Referring 01/31/20 Conchis Beckwith DO [address] [place] [address] Referring Family Medicine 08/11/20 Bull Driver Relationship Specialty Start Date End Date Yasir Aguirre MD [address] [place] [address] PCP - General Family Medicine 03/18/23 Isidro Greenfield(Historical) [address] [place] [address] Referring 01/31/20 Conchis Beckwith DO [address] [place] [address] Referring Family Medicine 08/11/20 Bull Driver Relationship Specialty Start Date End Date Yasir Aguirre MD [address] [place] [address] PCP - General Family Medicine 03/18/23 Isidro Greenfield(Historical) [address] [place] [address] Referring 01/31/20 Conchis Beckwith DO [address] [place] [address] Referring Family Medicine 08/11/20 Team Status: Inactive Member Role Status Allison Ramsey (WND) SANJU Hauser Attending Provider Active Services [facility] Primary Care Provider Active Bull Driver Relationship Specialty Start Date End Date Yasir Aguirre MD [address] [place] [address] PCP - General Family Medicine 03/18/23 Isidro Greenfield(Historical) [address] [place] [address] Referring 01/31/20 Conchis Beckwith DO [address] [place] [address] Referring Family Medicine 08/11/20 Bull Driver Relationship Specialty Start Date End Date Yasir Aguirre MD [address] [place] [address] PCP - General Family Medicine 03/18/23 Isidro Greenfield(Historical) [address] [place] [address] Referring 01/31/20 Conchis Beckwith DO [address] [place] [address] Referring Family Medicine 08/11/20 Bull Driver Relationship Specialty Start Date End Date Yasir Aguirre MD [address] [place] [address] PCP - General Family Medicine 03/18/23 Isidro Greenfield(Historical) [address] [place] [address] Referring 01/31/20 Conchis Beckwith DO [address] [place] [address] Referring Family Medicine 08/11/20 Bull Driver Relationship Specialty Start Date End Date Yasir Aguirre MD [address] [place] [address] PCP - General Family Medicine 03/18/23 Isidro Greenfield(Historical) [address] [place] [address] Referring 01/31/20 Conchis Beckwith DO [address] [place] [address] Referring Family Medicine 08/11/20 Bull Driver Relationship Specialty Start Date End Date Yasir Aguirre MD [address] [place] [address] PCP - General Family Medicine 03/18/23 Isidro Greenfield(Historical) [address] [place] [address] Referring 01/31/20 Conchis Beckwith DO [address] [place] [address] Referring Family Medicine 08/11/20 Team Status: Inactive Member Role Status Dates Services [facility] Primary Care Provider Active Steven Mcmillan DO Attending Provider Active Bull Driver Relationship Specialty Start Date End Date Yasir Aguirre MD [address] [place] [address] PCP - General Family Medicine 03/18/23 Isidro Greenfield(Historical) [address] [place] [address] Referring 01/31/20 Conchis Beckwith DO [address] [place] [address] Referring Family Medicine 08/11/20 Bull Driver Relationship Specialty Start Date End Date Conchsi Beckwith DO [address] [place] [address] PCP - General Family Medicine 11/03/20 03/17/23 Isidro Greenfield(Historical) [address] [place] [address] Referring 01/31/20 Conchis Beckwith DO [address] [place] [address] Referring Family Medicine 08/11/20 Team Status: Active Member Role Status [facility] Primary Care Provider Active Rafael Broussard DO Emergency Provider Active Georgi aVrgas MD Admit Provider, Attending Pro vider Active Team Status: Inactive Member Role Status [facility] Primary Care Provider Active Rafael Broussard DO Emergency Provider Active Georgi Vargas MD Admit Provider Active Eryn Sands MD Attending Provider Active Alonso Pina MD Other Provider Active Bull Driver Relationship Specialty Start Date End Date Conchis Beckwith DO [address] [place] [address] PCP - General Family Medicine 11/03/20 03/17/23 Isidro Greenfield(Historical) [address] [place] [address] Referring 01/31/20 Conchis Beckwith DO [address] [place] [address] Referring Family Medicine 08/11/20 Bull Driver Relationship Specialty Start Date End Date Yasir Aguirre MD [address] [place] [address] PCP - General Family Medicine 03/18/23 Isidro Greenfield(Historical) [address] [place] [address] Referring 01/31/20 Conchis Beckwith DO [address] [place] [address] Referring Family Medicine 08/11/20 Team Status: Inactive Member Role Status Dates [facility] Primary Care Provider Active Conchis Beckwith DO Referring Provider Active Wood Moeller DO Attending Provider Active Team Status: Inactive Member Role Status Dates Concihs Beckwith DO Attending Provider Active Team Status: Active Member Role Status Dates [facility] FAM[facility] Primary Care Provider Active Team Status: Inactive Member Role Status Allison Palacio DO Emergency Provider Active PHYSIC[facility] NO FAMILY Primary Care Provider Active Goals (unrecognized section and content) Goals may be documented in a n alternate section FOR RECORDS PERTAINING TO PATIENTS WHO ARE OR HAVE BEEN ENROLLED IN A CHEMICAL DEPENDENCY/SUBSTANCEABUSE PROGRAM, SOME INFORMATION MAY BE OMITTED. This clinical summary was aggregated from multiple sources. Caution should be exercised in using it in the provision of clinical care. This summary normalizes information from multiple sources, and as a consequence, information in this document may materially change the coding, format and clinical context of patient data. In addition, data may be omitted in some cases. CLINICAL DECISIONS SHOULD BE BASED ON THE PRIMARY CLINICAL RECORDS. [facility]. provides no warranty or guarantee of the accuracy or completeness of information in this document.
[2023-12-11] MEDS: LEVOFLOXACIN IN DEXTROSE 5 % 500 MG/100 ML PIGGYBACK 100 MG IV (14:05)
[2023-12-11] MEDS: LACTATED RINGER'S SOLUTION 1,000 ML 50 ML IV (14:05)
[2023-12-11 14:06] LABS: Glucometer 262 mg/dL (74-106)
[2023-12-11 14:29] LABS: Basophils Percent Auto 0.5 % (0.2-2.0); Eosinophils Absolute Auto 0.1 10^3/uL (0.0-0.7); Eosinophils Percent Auto 1.6 % (0.9-7.0); Hematocrit 36.5 % (42.0-54.0); Hemoglobin 12.5 g/dL (14.0-18.0); Immature Granulocytes Abs Auto 0.02 10^3/uL (0.00-0.03); Immature Granulocytes Pct Auto 0.3 % (0.0-0.5); Lymphocytes Absolute Auto 1.6 10^3/uL (1.2-3.8); Lymphocytes Percent Auto 20.2 % (20.5-60.0); Mean Corpuscular HGB Conc 34.2 g/dL (29.9-35.2); Mean Corpuscular Hemoglobin 28.8 pg (25.9-34.0); Mean Corpuscular Volume 84.1 fL (80.0-94.0); Mean Platelet Volume 8.6 fL (9.5-13.5); Monocytes Absolute Auto 0.7 10^3/uL (0.3-0.8); Monocytes Percent Auto 8.2 % (1.7-12.0); Neutrophils Absolute Auto 5.5 10^3/uL (1.4-6.5); Neutrophils Percent Auto 69.2 % (43.0-75.0); Platelet Count 376 10^3/uL (150-450); Red Blood Count 4.34 10^6/uL (4.70-6.10); Red Cell Distribution Width 12.5 % (11.0-15.0); White Blood Count 7.9 10^3/uL (4.0-11.0)
[2023-12-11 14:41] LABS: Anion Gap 9.7; BUN Creatinine Ratio 8.8; Calcium 9.4 mg/dL (8.5-10.1); Carbon Dioxide 27.8 mmol/L (21.0-32.0); Chloride 100 mmol/L (98-107); Estimated GFR (African America 56 (>=60); Estimated GFR (Non-African Ame 46 (>=60); Glucose 261 mg/dL (74-106); Potassium 4.5 mmol/L (3.5-5.1); Sodium 133 mmol/L (136-145)
--- NOTE | 2023-12-11 16:24 | P.URON_ITS ---
Urology Surgery Operative Note Operative Note Procedure Date: 12/11/23 Time Out Performed: yes Pre-op Diagnosis: BPH with LUTS refractory to medications Post-op Diagnosis: same as pre-op Procedures performed: 1. Cystoscopy. 2. Transurethral resection of the prostate. Anesthesia: GETA Primary Surgeon: Luiz Garrett Complications: None Estimated blood loss (mL): 20 Findings: Short trilobar obstruction Specimens: Prostate chips Drains: 22 Dominican three-way coud? Baxter taped to traction and CBI Indications for Procedures: This gentleman has rather severe bladder outlet obstructive symptoms despite taking maximal medications. Endoscopically he is obstructed and he has severe bladder damage. He is strongly desirous for TURP. He has signed an informed consent after all risks were explained. Some of these risks include bleeding, infection, anesthesia, retrograde ejaculation, urinary incontinence both temporary and permanent, erectile dysfunction and persistent voiding dysfunction to name a few. Detailed description of Procedure: The patient was brought to the operating room and placed on the operating room table in the supine position. SCDs were placed on the lower extremities and turned on and functioning during the entire case. Timeout was done by all parties in the room. We all agreed upon the patient's identification and the planned procedures for this patient. Genn. anesthesia was then administered. The patient was then repositioned into the modified dorsal lithotomy position. All pressure points were satisfactorily padded. Genitalia were sterilely prepped and draped in usual fashion. I started by passing a 26 Dominican Olympus resectoscope with a standard bipolar loop electrode per urethra and into the bladder. The ureteral orifices were marked with the loop electrode. I then started on the median lobe and uniformly resected this down to the bladder neck level. I then resected posteriorly from the bladder neck to the Veru. I then resected the left and right lateral lobes and the anterior tissue from the bladder neck to the Veru level. The apex was then opened up. The bladder neck was opened up at the 5 and 7:00 positions. The resection bed was coagulated with the loop electrode. The Ilich evacuator was used to get all the prostate chips out of the bladder and these were sent for permanent sections. Upon completion with the scope at the apex the prostatic urethra and bladder neck were now wide open. There was no bleeding. There were no chips in the bladder. The scope was then removed. A 22 Dominican three-way coud? Baxter was placed in the bladder. It was manually irrigated with a Dudley syringe to verify accurate placement. 30 cc of fluid was placed in the balloon. It was taped to traction and CBI was started. It irrigated clear. The anesthetic was then reversed. He was then transferred to a [facility] bed and wheeled to PACU in stable condition. Urinary Catheter Management Urinary Catheter Management Urethral: Cath placed during this visit: no
[2023-12-11] MEDS: FLUTICASONE PROPIONATE HFA 110 MCG INHALER 120 PUFF/12 GM IH (20:18)
[2023-12-11 21:06] LABS: Glucometer 461 mg/dL (74-106)
[2023-12-11] MEDS: AMMONIUM LACTATE 226 GM BOTTLE 1 APPLIC TOPICAL (21:09)
[2023-12-11] MEDS: DONEPEZIL HCL 10 MG TABLET PO (21:10)
[2023-12-11] MEDS: CYCLOBENZAPRINE HCL 10 MG TABLET PO (21:10)
[2023-12-11] MEDS: INSULIN DETEMIR 300 UNIT/3 ML INSULN.PEN 45 UNIT SUBQ (21:10)
[2023-12-11] MEDS: SOLIFENACIN SUCCINATE 10 MG TABLET PO (21:10)
[2023-12-11] MEDS: 0.9 % SODIUM CHLORIDE 1,000 ML 80 ML IV (21:11)
[2023-12-11] MEDS: INSULIN ASPART 300 UNIT/3 ML PEN 11 UNIT SUBQ (21:12)
[2023-12-11] MEDS: CEFAZOLIN SODIUM/DEXTROSE,ISO 1 GM/50 ML IV.SOLN IV (21:12)
[2023-12-11] MEDS: TERAZOSIN HCL 5 MG CAPSULE 10 MG PO (21:12)
[2023-12-11] MEDS: SODIUM CHLORIDE IRRIG SOLUTION 3,000 ML 3000 ML IRR ×2 (21:40→23:32)
[2023-12-11] MEDS: HYDROCODONE/ACET 5-325 MG TABLET 1 TAB PO (21:40)
[2023-12-11] MEDS: HYDROXYZINE PAMOATE 25 MG CAPSULE 50 MG PO (23:33)
[2023-12-11] MEDS: TEMAZEPAM 15 MG CAPSULE PO (23:33)
[2023-12-12] MEDS: SODIUM CHLORIDE IRRIG SOLUTION 3,000 ML 3000 ML IRR ×2 (01:22→03:22)
[2023-12-12] MEDS: CEFAZOLIN SODIUM/DEXTROSE,ISO 1 GM/50 ML IV.SOLN IV (02:38)
[2023-12-12] MEDS: INSULIN ASPART 300 UNIT/3 ML PEN 11 UNIT SUBQ (05:11)
[2023-12-12] MEDS: HYDROCODONE/ACET 5-325 MG TABLET 1 TAB PO (05:11)
[2023-12-12 05:15] LABS: Glucometer 367 mg/dL (74-106)
[2023-12-12 05:18] VITALS: BP 162/75; PULSE 82; RESP 18; TEMP 36.8; O2SAT 93
--- NOTE | 2023-12-12 05:19 | PC.NURSE ---
0501 RN removed traction. patient tolerated well. Pt stated pain was a 7 out of ten this morning. RN administered pain medication per physician's order
--- NOTE | 2023-12-12 06:36 | PC.NURSE ---
0600- CBI was discontinued. pt switched over to a leg bag. Due to patient being non-ambulatory and wheelchair bound, he was not able to get up and ambulate in the halls. RNs did assist the patient into a chair. Pt now sitting up with call light in reach and denies any needs at this time.
[2023-12-12 09:04] VITALS: BP 131/74
[2023-12-12] MEDS: SERTRALINE HCL 50 MG TABLET 25 MG PO (09:04)
[2023-12-12] MEDS: HYDROCHLOROTHIAZIDE 25 MG TABLET PO (09:04)
[2023-12-12] MEDS: FUROSEMIDE 20 MG TABLET PO (09:04)
[2023-12-12] MEDS: AMLODIPINE BESYLATE 5 MG TABLET PO (09:04)
[2023-12-12] MEDS: LOSARTAN POTASSIUM 25 MG TABLET PO (09:04)
[2023-12-12] MEDS: AMMONIUM LACTATE 226 GM BOTTLE 1 APPLIC TOPICAL (09:05)
[2023-12-12] MEDS: TERAZOSIN HCL 5 MG CAPSULE 10 MG PO (09:05)
--- NOTE | 2023-12-12 09:20 | SWNOTE1 ---
SW consulted due to patient living alone and being wheelchair bound. Pt had a TURP done by . Pt is wheelchair bound due to 3 back surgeries. Pt uses his wheelchair to get around in the home and to go to stores. SW and pt talked for 15-20 minutes. Pt is requesting to stay until Friday when he has his follow up with Dr. Garrett. SW explained to him he has no medical diagnosis to be here until Friday and the doctor has discharged him. Pt explained to SW that he lives alone and he cooks, cleans, goes to the store, etc. Pt also stated he does fall at home, but he just takes his time to get up or crawls, he will not call for help or get any of those devices to wear around his neck. Pt does not have family or friends to assist him. Pt uses things in the home to grab on to. SW spoke to him about looking in to assisted living, pt then voiced he is independent with everything and does not need that. SW then asked pt why staying until Friday will make a difference? SW asked if he would have help on Friday? Pt then stated he would be stronger from staying at hospital for 2 days. SW explained it is not likely he will get stronger from staying at hospital for 2 extra days. SW expressed to pt that SW can get home health set up and have a nurse come out this weekend to check on his zepeda. Pt stated he has had [facility] in the past. SW to reach out to [facility]. Pt stated he came to [facility] because he was told they are great and will be helpful. Pt stated he spoke to someone downstairs and they told him we would take care of him since he is alone at home. SW explained again to pt there is no medical diagnosis to keep pt at this time. SW is looking in to home health coming to assist pt. SW again expressed to patient to look in to Assisted Living, but pt again voiced he is independent at home. SW offered to have someone come speak with him from administration, but pt declined. SW asked pt what transportation company he uses from [employer], he stated see one first. SW to try and contact. SW spoke with nursing and updated her. SW called transport [facility], and they are aware of pt and are able to transport once he is ready for discharge.
[2023-12-12] MEDS: FLUTICASONE PROPIONATE HFA 110 MCG INHALER 120 PUFF/12 GM IH (09:23)
--- NOTE | 2023-12-12 09:39 | SWNOTE1 ---
SW spoke with pt again in regards to transport. He wanted to check if I spoke with transport, SW let him know that SW did and let them know around 1:00. Pt voiced that would be a good time. Pt again stated they did not go over all this after care with him and he stated he can't even wear pants. Pt then asked SW about his appointment Friday and if they are going to take the leg bag off, SW advised to speak with nursing. SW asked if the transport company had wheelchair. Pt stated no, his wheelchair is at apartment. Pt stated he will use his walker to get in the SUV they use. He stated if someone gets him down in wheelchair they will assist. SW stated we will take him down in wheelchair and help get him in to SUV. SW asked if they will get his wheelchair once they drop him off at apartment, he stated yes they will assist him. SW updated nursing and will call transport back once it is closer to 1:00.
--- NOTE | 2023-12-12 10:51 | SWNOTE1 ---
MARIN called transport and they will be here around 1:00, it is [facility] transport in [place]. [facility] is able to accept. MARIN to send final orders.
--- NOTE | 2023-12-12 11:22 | SWNOTE1 ---
MARIN called Dr. Garrett office to see if he would sign CRF for home health. MARIN spoke to nursing and Dr. Garrett is off today. MARIN reached out to [facility] to see if PCP can sign if MARIN is able to reach pt's PCP.
--- NOTE | 2023-12-12 11:54 | SWNOTE1 ---
Doris and pt let me know his PCP is Edmundo Gastelum in [place]. Doris provided number. MARIN called and left a message. MARIN waiting to hear back.
--- NOTE | 2023-12-12 13:34 | SWNOTE1 ---
SW spoke to [facility] in [place], pt's PCP is in this office, they requested to send form over and they will give to Dr. Gastelum and have her sign and will fax it back.
--- NOTE | 2023-12-12 15:21 | SWNOTE1 ---
At this time CRF has not been sent back over by pt's PCP. SW called and there was no answer, voicemail left.
--- NOTE | 2023-12-12 16:27 | SWNOTE1 ---
SW received fax back from pt's PCP office with CRF. CRF sent to Doris LUJAN.
== END 2023-12-12 13:10 | disposition home or self-care (01) ==
LOC: SURGOUT 16:16 → MS 17:29
PROVIDERS: Anesthesiology; Visit Provider Urology
PROC: (CPT 914; principal; 2023-12-11 14:20)
DX: N40.1 Benign prostatic hyperplasia with lower urinary tract symptoms (principal); E78.5 Hyperlipidemia, unspecified; R01.1 Cardiac murmur, unspecified; M19.90 Unspecified osteoarthritis, unspecified site; I10 Essential (primary) hypertension; E11.9 Type 2 diabetes mellitus without complications; Z79.01 Long term (current) use of anticoagulants; I25.10 Atherosclerotic heart disease of native coronary artery without angina pectoris; K76.9 Liver disease, unspecified; N41.1 Chronic prostatitis; R33.9 Retention of urine, unspecified; J43.9 Emphysema, unspecified; Z79.4 Long term (current) use of insulin; Z79.899 Other long term (current) drug therapy; Z87.891 Personal history of nicotine dependence; R39.15 Urgency of urination; R39.12 Poor urinary stream; R35.0 Frequency of micturition; R35.1 Nocturia; R06.09 Other forms of dyspnea
CPT/HCPCS: 52601; 36415; 80048; 82948; 85025; 88305; 94640; 96365; 99999; J1094; J2704